=== PATIENT | female | born 1955 | race Caucasian/White ===

== ENCOUNTER 2019-04-20 07:52 | Outpatient (RCR) | payer MEDICARE, BC, SELFPAY ==
--- NOTE | 2019-02-23 10:41 | WPDWOUNDNOTE ---
Wound Care Note Date/Time: 02/23/19 10:41 Wound width: 0.3cm Wound length: 0.2cm Wound depth: 2.3cm Drainage: Moderate serousanguinous Surrounding tissue appearance: No redness/warmth/swelling Tunneling: tunneling 2.3 cm. no communication with the ankle or subtalar joint Percentage granulation tissue: 100% Treatment/Procedures: Dressing change Dressings: Silver gel, shelia, cover dry Assessment and Plan Assessment and plan (1) Nonunion of arthrodesis: Onset Date: ~06/2018 Status: Acute Assessment and Plan: [facility] wound clinic evaluation for right ankle. Valgus alignment unchanged. Wound dehiscence with continued drainage, no signs of infection. Marked improvement in dimensions/depth, see exam. No probing to bone. Awaiting transition to [place] boot at this time but given drainage, will continue use of fracture boot and daily dressing changes. Silver gel, shelia, cover dry. Fracture boot. PWB. Follow up in 2 weeks for reassessment. Patient started on Karl today. (2) Ulcer of ankle: Qualifiers: Laterality: right Non-pressure ulcer stage: with necrosis of muscle Qualified Code(s): 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 Code(s): L97.309 - Non-pressure chronic ulcer of unspecified ankle with unspecified severity Status: Acute Review of Systems Const Reports no additional constitutional complaints Eyes Reports no additional eye complaints ENT Reports system reviewed and no additional complaints, except as documented Card Reports no additional cardiovascular complaints Resp Reports no additional respiratory complaints GI Reports no additional gastrointestinal complaints Reports no additional female genitourinary complaints Musc Reports no additional musculoskeletal complaints Skin/Breast Reports system reviewed and no additional complaints, except as docu Neuro Reports system reviewed and no additional complaints, except as documented Psych Reports no additional psychiatric complaints Endo Reports no additional endocrine complaints Jae/Lymph Reports no additional hematologic/lymphatic complaints Aller/Immun Reports no additional allergic/immunologic complaints Exam Const Constitutional General: healthy appearing; No in distress or confused Orientation/consciousness: oriented to person, oriented to place, oriented to time and No confused HENMT Head: normal to inspection, normocephalic and atraumatic Eyes Conjunctivae: Yes conjunctivae normal Sclera: sclerae normal Neck Neck: Yes supple and No tender Resp Effort & Inspection: normal respiratory effort and no audible wheezes Cardio Rate: Yes regular rate Rhythm: regular rhythm Skin General skin exam: no rashes or lesions noted Neuro General: Yes oriented to person, Yes oriented to place, Yes oriented to time and No confusion Extrem Right upper extremity: normal to inspection Left upper extremity: normal to inspection Right lower extremity: ankle ( Right ankle incision closed for at the proximal and middle aspect. ) Other: Right lateral ankle incision wound dehiscence with continued improvement in dimensions/appearance. Proximal/middle incision remain completely closed. Opening at the distal incision on the dorsal midfoot measures 0.3x0.2x2.3cm, unable to probe to bone. 100% red/pink wound bed. Moderate serousanguinous drainage. No signs of active infection. Does not communicate with the ankle or subtalar joint. Moderate valgus alignment through the ankle joint with minimal correction/motion. Unable to correct. Surrounding tissue without redness, warmth, swelling. Psych Affect: Yes normal affect
--- NOTE | 2019-03-12 08:27 | PCWOUND ---
Patient called to cancel appointment due to sickness. Rescheduled for Friday03/16/19 at 0930. Informed Franca Burnett NP for Dr. Curtis of [facility].
--- NOTE | 2019-03-16 10:09 | WPDWOUNDNOTE ---
Wound Care Note Date/Time: 03/16/19 10:09 Wound width: 0.1 Wound length: 0.2cm Wound depth: 2.5cm Drainage: Mild serousanguinous Surrounding tissue appearance: No redness/warmth/swelling Tunneling: tunneling 2.5 cm. no communication with the ankle or subtalar joint Percentage granulation tissue: 100% Treatment/Procedures: Dressing change Dressings: Silver gel, shelia, cover dry Assessment and Plan Assessment and plan (1) Nonunion of arthrodesis: Onset Date: ~06/2018 Status: Acute Assessment and Plan: [facility] wound clinic evaluation for right ankle. Valgus alignment unchanged. Wound dehiscence with continued drainage- slowed, no signs of infection. Marked improvement in dimensions/depth, see exam. No probing to bone. Plan for transition to [place] boot at this time. Follow up at [facility] in 1 week for repeat radiographs of the RLE with Dr. Curtis. Silver gel, shelia, cover dry to distal wound. PWB with [place] boot. MUST use walker. Discussed importance of RLE foot/ankle/calf checks x2/day to evaluate for any skin breakdown in the [place] boot. Report immediately to our office. (2) Ulcer of ankle: Qualifiers: Laterality: right Non-pressure ulcer stage: with necrosis of muscle Qualified Code(s): 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 Code(s): L97.309 - Non-pressure chronic ulcer of unspecified ankle with unspecified severity Status: Acute Review of Systems Const Reports no additional constitutional complaints Eyes Reports no additional eye complaints ENT Reports system reviewed and no additional complaints, except as documented Card Reports no additional cardiovascular complaints Resp Reports no additional respiratory complaints GI Reports no additional gastrointestinal complaints Reports no additional female genitourinary complaints Musc Reports no additional musculoskeletal complaints Skin/Breast Reports system reviewed and no additional complaints, except as docu Neuro Reports system reviewed and no additional complaints, except as documented Psych Reports no additional psychiatric complaints Endo Reports no additional endocrine complaints Jae/Lymph Reports no additional hematologic/lymphatic complaints Aller/Immun Reports no additional allergic/immunologic complaints Exam Const Constitutional General: healthy appearing; No in distress or confused Orientation/consciousness: oriented to person, oriented to place, oriented to time and No confused HENMT Head: normal to inspection, normocephalic and atraumatic Eyes Conjunctivae: Yes conjunctivae normal Sclera: sclerae normal Neck Neck: Yes supple and No tender Resp Effort & Inspection: normal respiratory effort and no audible wheezes Cardio Rate: Yes regular rate Rhythm: regular rhythm Skin General skin exam: no rashes or lesions noted Neuro General: Yes oriented to person, Yes oriented to place, Yes oriented to time and No confusion Extrem Right upper extremity: normal to inspection Left upper extremity: normal to inspection Right lower extremity: ankle ( Right ankle incision closed for at the proximal and middle aspect. ) Other: Right lateral ankle incision wound dehiscence with continued improvement in dimensions/appearance. Proximal/middle incision remain completely closed. Opening at the distal incision on the dorsal midfoot measures 0.2x0.2x2.5cm, unable to probe to bone. 100% red/pink wound bed. Mild serousanguinous drainage, drainage slowing. No signs of active infection. Does not communicate with the ankle or subtalar joint. Moderate valgus alignment through the ankle joint with minimal correction/motion. Unable to correct. Surrounding tissue without redness, warmth, swelling. Psych Affect: Yes normal affect
--- NOTE | 2019-04-20 10:11 | WPDWOUNDNOTE ---
Wound Care Note Date/Time: 04/20/19 10:11 Wound width: 0.1 Wound length: 0.2cm Wound depth: 2.7cm Drainage: Mild serousanguinous Surrounding tissue appearance: No redness/warmth/swelling Tunneling: tunneling 2.5 cm. no communication with the ankle or subtalar joint Percentage granulation tissue: 100% Treatment/Procedures: Dressing change Dressings: Silver gel, shelia, cover dry Assessment and Plan Assessment and plan (1) Nonunion of arthrodesis: Onset Date: ~06/2018 Status: Acute Assessment and Plan: Patient returns to wound clinic for re-evaluation of right ankle and foot. Some skin excoriation of the leg and noted with breakdown and mild slough. 5 to 6 areas from Dime to quarter sized. Recommend antibiotic ointment and time-out from the Charcot restraint orthosis. Patient verbalizes understanding. 30 minutes discussion regarding treatment options.Updated history, physical exam and radiographs reviewed with the patient. Interval changes reviewed. Discussed the condition, nature, etiology and course of natural history with the patient. Treatment options including surgical and nonoperative treatment were reviewed. Risks and benefits of each as well as alternatives reviewed. The patient's questions were answered. Conservative treatment ice, compression and elevation. She is failing non operative treatment due to further deformity of the ankle and hindfoot. We have discussed surgical treatment which includes amputation, external fixator reconstruction versus internal fixation reconstruction. She has already failed 2 attempts at internal fixation. She has loss of bone and length of the leg and does not tolerate allograft placement to try and restore length. If she decided on reconstruction it would need to be at a shortened position. We talked about the advantage of external fixator with not having internal metal components and stabilizing weak and osteoporotic bone. Advantage of internal fixation is a single surgery without pins screws and wound and pin site care that is required with external fixator. Patient and family questions answered. They are going to consider. In the interim she can use her fracture boot for immobilization with protected weight-bearing. Daily dressing changes were reviewed with antibiotic ointment. She is going to follow up with the orthotic company for adjustment of her Charcot restraint. She has also asked about a 2nd opinion which will try to help arrange for her. Follow-up in the orthopedic office in 3 to 4 weeks for new radiographs of the right ankle. (2) Ulcer of ankle: Qualifiers: Laterality: right Non-pressure ulcer stage: with necrosis of muscle Qualified Code(s): 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 Code(s): L97.309 - Non-pressure chronic ulcer of unspecified ankle with unspecified severity Status: Acute Review of Systems Const Denies fever(s) Eyes Denies blurry vision ENT Denies neck pain Card Denies chest pain Resp Denies wheezing GI Denies abdominal pain Denies urinary urgency Musc Reports as per HPI Skin Reports as per HPI Neuro Denies behavioral changes or numbness Psych Denies irritability or mood changes Endo Denies polyuria Jae/Lymph Denies easy bleeding Aller/Immun Denies seasonal allergies Exam Const Constitutional General: healthy appearing; No in distress or confusion Orientation/consciousness: oriented to person, oriented to place, oriented to time and No confusion HENMT Head: normal to inspection, normocephalic and atraumatic Eyes Conjunctivae: Yes conjunctivae normal Sclera: sclerae normal Neck Neck: Yes supple and No tender Resp Effort & Inspection: normal respiratory effort and no audible wheezes Cardio Rate: Yes regular rate Rhythm: regular rhythm Skin General skin exam: no rashes or lesions noted Neuro General: Yes oriented to person, Yes oriented to place, Yes
== END 2019-05-10 23:59 | disposition home or self-care (01) ==
LOC: ANHWOC 07:52
PROVIDERS: Referring Provider Nurse Practitioner Family; Visit Provider Orthopaedic Surgery
DX: Z48.01 Encounter for change or removal of surgical wound dressing (principal); L97.313 Non-pressure chronic ulcer of right ankle with necrosis of muscle; E11.9 Type 2 diabetes mellitus without complications
CPT/HCPCS: 92593; 99212; 99213; A9270; G0463

== ENCOUNTER 2020-09-19 11:44 | Outpatient (CLI) | payer MEDICARE, BC, SELFPAY ==
--- NOTE | 2020-09-19 13:07 | ECG_ITS ---
Measurements Intervals [place] Rate: 64 P: 71 ME: 168 QRS: 6 QRSD: 117 T: 17 QT: 411 QTc: 425 Interpretive Statements SINUS RHYTHM INTRAVENTRICULAR CONDUCTION DELAY BORDERLINE ECG Electronically Signed On 09-19-2020 13:38:52 CDT by Kosta Villatoro D.O.
[2020-09-19 13:33] LABS: Hematocrit 35.8 % (37.0-47.0); Hemoglobin 10.8 g/dL (12.0-15.0)
[2020-09-19 13:40] LABS: Hemoglobin A1C 4.8 % (<5.7)
[2020-09-19 13:42] LABS: Anion Gap 7 mmol/L (8-16); Blood Urea Nitrogen 48 mg/dL (7-17); Calcium 8.5 mg/dL (8.4-10.2); Carbon Dioxide 24 mmol/L (22-30); Chloride 112 mmol/L (98-107); Estimated Glomerular Filt Rate 14; Glucose 70 mg/dL (65-105); Potassium 4.9 mmol/L (3.4-5.0); Sodium 143 mmol/L (137-145)
== END 2020-09-19 11:45 | disposition home or self-care (01) ==
PROVIDERS: Anesthesiology; PCP Family Medicine; Visit Provider Orthopaedic Surgery
DX: M86.8X7 Other osteomyelitis, ankle and foot (principal); E11.9 Type 2 diabetes mellitus without complications; I10 Essential (primary) hypertension; I45.89 Other specified conduction disorders
CPT/HCPCS: 36415; 80048; 83036; 85014; 85018; 93005

== ENCOUNTER → 2020-09-25 00:40 | Outpatient (CLI) | payer MEDICARE, BC, SELFPAY ==
[2020-09-27 07:17] LABS: SARS-CoV-2 RNA PCR Negative
== END ==
PROVIDERS: PCP Family Medicine; Visit Provider Orthopaedic Surgery
DX: Z01.812 Encounter for preprocedural laboratory examination (principal); Z20.822 Contact with and (suspected) exposure to COVID-19
CPT/HCPCS: C9803; U0003; U0005

== ENCOUNTER 2020-09-28 13:08 | Inpatient (IN) | payer MEDICARE, BC, SELFPAY ==
[2020-09-19 12:15] VITALS: BP 204/94; PULSE 60; RESP 16; TEMP 37; O2SAT 98; BMI 45.3
--- NOTE | 2020-09-26 16:04 | PM.IMHP ---
H&P: HPI History of Present Illness Date/Time: 09/26/20 16:04 Chief Complaint: Right ankle ulcer, deformity, psoriatic arthritis Narrative: 64-year-old woman with previous right ankle deformity status post reconstruction. Complicated by postoperative wound dehiscence and infection. Long treatment for wound problems and infection. Now with severe deformity of right ankle severe lateral soft tissue scarring and inability to bear weight. Presents for operative treatment. Review of Systems Constitutional: Constitutional: Denies fever(s) Eyes: Eyes: Denies blurry vision ENT: Reports Normal hearing present Cardiovascular: Cardiovascular: Denies chest pain and Denies dyspnea Respiratory: Respiratory: Denies dyspnea and Denies wheezing Gastrointestinal: Gastrointestinal: Denies abdominal pain Genitourinary: Genitourinary: Denies urinary urgency Musculoskeletal: Musculoskeletal: Reports as per HPI and Denies numbness Integumentary/Breasts: Skin/Breast: Reports changing lesions, Reports dry skin, Reports sores and Reports other ( Skin changes with psoriatic arthritis) Neurologic: Reports Normal hearing present, Denies behavioral changes, Denies confusion, Denies numbness and Denies convulsions Psychiatric: Psychiatric: Denies behavioral changes, Denies confusion and Denies hallucinations Endocrine: Endocrine: Denies heat intolerance Hematologic/Lymphatic: Hematologic/Lymphatic: Denies easy bleeding Allergic/Immunologic: Allergic/Immunologic: Denies wheezing PMFSH Past Medical History Medical History Psoriatic arthritis, destructive type Surgical History Surgical History History of hip replacement History of knee replacement Family History Family History Other Diabetes mellitus Family history of alcoholism Hypertension Social History Social History Smoking status: Never smoker Alcohol intake: current Drinks per week: 3 Substance use: never Additional living arrangements comments: HUSB Spiritual care concerns: No Meds Home Medications and Allergies Home Medications Medication Instructions Recorded Confirmed Type aspirin 81 mg PO DAILY 02/01/19 09/19/20 History atorvastatin [Lipitor] 40 mg PO HS 02/01/19 09/19/20 History glipizide 2.5 mg PO BID 02/01/19 09/19/20 History hydralazine 100 mg PO TID 02/01/19 09/19/20 History verapamil 240 mg PO QAM 02/01/19 09/19/20 History clonidine HCl 0.1 mg tablet 0.1 mg PO BID 08/28/20 09/19/20 History doxazosin 2 mg tablet 2 mg PO HS 08/28/20 09/19/20 History levothyroxine 25 mcg capsule 25 mcg PO QAM 08/28/20 09/19/20 History cetirizine [Zyrtec] 10 mg PO DAILY 09/19/20 09/19/20 History ergocalciferol (vitamin D2) 1,250 mcg PO WEEKLY 09/19/20 09/19/20 History ferrous sulfate [Iron (ferrous 325 mg PO DAILY 09/19/20 09/19/20 History sulfate)] metoprolol tartrate 100 mg PO BID 09/19/20 09/19/20 History Allergies Allergy/AdvReac Type Severity Reaction Status Date / Time sulfamethoxazole Allergy Intermediate HIGH Verified 09/19/20 12:03 POTASSIUM trimethoprim Allergy Intermediate HIGH Verified 09/19/20 12:03 POTASSIUM carvedilol AdvReac Unknown Dizziness Verified 09/19/20 12:03 oxycodone AdvReac Unknown Dizziness Verified 09/19/20 12:03 Exam Const: General: cooperative, healthy appearing, no acute distress, well developed and alert; No confusion Orientation/consciousness: No confusion HENMT: Head: normal to inspection, normocephalic and atraumatic Eyes: Conjunctivae: conjunctivae normal Sclera: sclerae normal Neck: Neck: supple and nontender Chest: Chest palpation & inspection: normal inspection of the chest Resp: Effort & Inspection: normal respiratory effort and no audible wheezes Cardio: Rate: re
[2020-09-28] VITALS (22 sets, daily range): BP systolic 106–173; BP diastolic 62–93; PULSE 53–77; RESP 12–22; TEMP 35.9–36.6; O2SAT 91–100
--- NOTE | 2020-09-28 06:55 | WPDHPUPDATE1 ---
History and Physical Update Update Date/Time: 09/28/20 06:55 History and Physical has been reviewed, including an updated exam of the patient. There are NO changes in the patient's condition. Covid test negative. Risks, benefits, and alternatives have been discussed and questions answered. Patient agrees to proceed with procedure.
--- NOTE | 2020-09-28 06:56 | WPDANESEPPF ---
Anes - Initial Pre Proc Eval Procedure: Operation Date: 09/28/20 08:00 Proposed Procedures p Right Transtibial Amputation - Avinash Curtis MD Date/Time: 09/28/20 06:56 Surgeon: Avinash Curtis MD Pre Op Diagnosis: Right foot osteomyelitis Patient Data Age: 64 Gender: F Height: 1.6 m Weight: 116 kg Last Vital Signs Temp 37.0 C 09/19/20 12:15 Pulse 60 09/19/20 12:15 Resp 16 09/19/20 12:15 BP 204/94 H 09/19/20 12:15 Pulse Ox 98 09/19/20 12:15 Allergies Allergy/AdvReac Type Severity Reaction Status Date / Time sulfamethoxazole Allergy Intermediate HIGH Verified 09/28/20 06:46 POTASSIUM trimethoprim Allergy Intermediate HIGH Verified 09/28/20 06:46 POTASSIUM carvedilol AdvReac Unknown Dizziness Verified 09/28/20 06:46 oxycodone AdvReac Unknown Dizziness Verified 09/28/20 06:46 Home Medications Medication Instructions Recorded Confirmed Type aspirin 81 mg PO DAILY 02/01/19 09/28/20 History atorvastatin [Lipitor] 40 mg PO HS 02/01/19 09/28/20 History glipizide 2.5 mg PO BID 02/01/19 09/28/20 History hydralazine 100 mg PO TID 02/01/19 09/28/20 History verapamil 240 mg PO QAM 02/01/19 09/28/20 History clonidine HCl 0.1 mg tablet 0.1 mg PO BID 08/28/20 09/28/20 History doxazosin 2 mg tablet 2 mg PO HS 08/28/20 09/28/20 History levothyroxine 25 mcg capsule 25 mcg PO QAM 08/28/20 09/28/20 History cetirizine [Zyrtec] 10 mg PO DAILY 09/19/20 09/28/20 History ergocalciferol (vitamin D2) 1,250 mcg PO WEEKLY 09/19/20 09/28/20 History ferrous sulfate [Iron (ferrous 325 mg PO DAILY 09/19/20 09/28/20 History sulfate)] metoprolol tartrate 100 mg PO BID 09/19/20 09/28/20 History Patient hx anesthesia problems: none Family hx anesthesia problems: none [facility] Past Medical History Medical History (Updated 09/28/20 @ 06:58 by Scottie Estes MD) Diabetes HTN (hypertension) Hypercholesterolemia Hypothyroidism Morbid obesity with BMI of 40.0-44.9, adult 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) Obesity Oligoarticular psoriatic arthritis Osteoarthritis Psoriatic arthritis, destructive type Ulcer of ankle Surgical History Surgical History History of hip replacement History of knee replacement Family History Family History Other Diabetes mellitus Family history of alcoholism Hypertension Social History Social History Smoking status: Never smoker Alcohol intake: current Drinks per week: 3 Alcohol use details: BEER Substance use: never Living arrangements: with family Additional living arrangements comments: HUSB Spiritual care concerns: No Anes - Eval Final PreProcedure Day of Procedure 09/28/20 06:56 Patient weight: obese Heart: regular rate and rhythm Lungs: clear to auscultation and normal air movement Airway: Mallampati scale class II Neurological: alert and oriented Last oral intake: >/= 8 hours ASA classification: III Emergent: no Anesthetic plan: proceed Anesthesia type and monitoring: general LMA Informed Consent: The patient's anesthetic plan and its attendant risks and benefits were discussed with the patient/family/POA. Questions were solicited and answers provided to the satisfaction of the patient/family/POA.
[2020-09-28] MEDS: LACTATED RINGERS 1,000 ML 30 ML IV CONT ×2 (07:25→10:01)
[2020-09-28 07:27] LABS: Glucose Point of Care 86 mg/dl (65-105)
[2020-09-28] MEDS: ACETAMINOPHEN 500 MG TABLET 1000 MG PO (07:27)
[2020-09-28] MEDS: KETOROLAC 15 MG/ML VIAL (*BKC) IV PUSH (07:28)
[2020-09-28] MEDS: ceFAZolin 3 GM/D5W 100 ML 100 ML IVPB (07:47)
[2020-09-28] MEDS: BUPIVACAINE/EPINEPHRINE 0.5% 10 ML VIAL 50 ML INFILTRATE (08:52)
[2020-09-28 10:10] LABS: Glucose Point of Care 93 mg/dl (65-105)
--- NOTE | 2020-09-28 10:10 | P.OP_ITS ---
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 Informed consent given. Operative extremity marked. Patient received intravenous antibiotics. Patient brought to the operating room where underwent general a nesthetic by anesthesia team. Positioned supine on operating room table. Time- out performed confirming the patient, site of the surgery and the plan. Leg then prepped and draped usual sterile surgical fashion using Betadine prep solution. Calf and leg exsanguinated and a thigh tourniquet inflated to 250 mmHg. Anatomic landmarks mapped out on the skin to allow for a posterior flap and approximately 12 cm of tibia below the tibial tubercle. Skin incision made with a 10 blade knife. Hemostasis controlled electrocautery. Cautery dissection carried down circumferentially through the fascia. Dissection then carried around the proximal fibula, retractors placed in sagittal saw used to transect the fibula. Elevator used to dissect soft tissue off of the tibia. Tibia once again measured and the tibia osteotomy performed with a sagittal saw with retractors posterior to protect the soft tissue. Saphenous vessels and peroneal vessels were identified and ligated with 2 0 silk suture. The peroneal nerve and saphenous nerve identified and anesthetized with 0.5% Marcaine with epinephrine and ligated. Tibia was then brought forward and an amputation knife was placed posterior to the tibia and the distal fibula and the soft tissue was transected away from the bone. The cut was completed through the Achilles tendon. The distal leg ankle and foot were then passed off as specimen. Tibial artery identified and ligated with 2 0 silk suture. Tibial nerve identified and anesthetized with 0.5% Marcaine with epinephrine and ligated. Any other bleeding points coagulated with cautery. The tourniquet was then released. Any further bleeding was controlled with cautery or 2 0 silk suture ligation. After thorough hemostasis the wound was thoroughly irrigated with antibiotic solution. The anterior cortex of the tibia was shaped with the saw to reduce pressure. Thorough irrigation again performed. Myodesis was then performed of the gastrocnemius over the distal tibia using #2 Ethibond suture placed through trans osseous holes in the distal tibia. Fascia then repaired with 0 Vicryl interrupted suture. Subcutaneous tissue repaired with 2 Vicryl 3 0 Monocryl interrupted suture and skin repaired with emy. Wound VAC dressing applied to the incision and covered with sterile dressing. Patient awoken from anesthesia, extubated and taken to recovery room in stable condition. All sponge needle and instrument counts correct at the end of the case. Implants None Estimated Blood Loss -100.0 Tourniquet Time 45 Urine Output -150.0 Drains No Packing Yes (Wound VAC) Pathology yes (Right foot and ankle specimen) Complications None Condition stable Disposition PACU
--- NOTE | 2020-09-28 13:42 | ADMGEN ---
This patient, Rimma Lopes, was admitted to Medical Room 342-01. Patient/family oriented to hospital policies and general routines including ID bracelet, bed and alarms, visiting hours, pain management, procedures, bathroom and other care routines, personal items, smoking policy, room service/diet, and visiting hours. Information on how to activate the Rapid Response Team has been discussed. Patient/Family are encouraged to report perceived risks to care and to ask questions if they do not understand what they are told or what they should do.
[2020-09-28] MEDS: KCL 20 MEQ/D5/0.45% SOD CHL 1,000 ML 80 ML IV CONT (14:07)
[2020-09-28] MEDS: hydrALAZINE HCL 50 MG TABLET 100 MG PO ×2 (15:14→16:56)
[2020-09-28] MEDS: DOCUSATE SODIUM 100 MG CAPSULE PO (16:55)
[2020-09-28] MEDS: glipiZIDE XL 2.5 MG TAB.ER.24 PO (16:56)
[2020-09-28] MEDS: cloNIDine HCL 0.1 MG TABLET PO (16:58)
[2020-09-28] MEDS: oxyCODONE HCL (*CRX) 5 MG TAB IR PO ×2 (17:11→20:37)
[2020-09-28] MEDS: DOXAZOSIN MESYLATE 2 MG TABLET PO (20:37)
[2020-09-28] MEDS: FAMOTIDINE 20 MG TABLET PO (20:37)
[2020-09-28] MEDS: ATORVASTATIN 40 MG TABLET PO (20:37)
[2020-09-28] MEDS: TOLNAFTATE 1% POWDER 45 GM BTL 1 APPLIC TOPICAL (20:37)
[2020-09-28] MEDS: METOPROLOL TARTRATE 50 MG TAB 100 MG PO (20:37)
--- NOTE | 2020-09-28 22:00 | WPDCN ---
Assessment and Plan Assessment and plan (1) Osteomyelitis of right foot: Code(s): M86.9 - Osteomyelitis, unspecified Status: Acute Assessment and Plan: Postoperative day 0, status post right transtibial amputation. Wound care, pain control, and antibiotic choice deferred to Dr. Curtis as well as DVT prophylaxis. (2) Type 2 diabetes mellitus: Code(s): E11.9 - Type 2 diabetes mellitus without complications Status: Acute Assessment and Plan: Continue glipizide. Initiate sliding scale insulin, Accu-Cheks, and hypoglycemic protocol. Recent hemoglobin A1c was 4.8%. (3) Hypertension: Code(s): I10 - Essential (primary) hypertension Status: Acute Assessment and Plan: Blood pressures were reviewed and they have been a bit elevated postoperatively. Continue antihypertensives and monitor daily. (4) Hypothyroidism: Code(s): E03.9 - Hypothyroidism, unspecified Status: Acute Assessment and Plan: Continue levothyroxine and check TSH. (5) Hypercholesterolemia: Code(s): E78.00 - Pure hypercholesterolemia, unspecified Status: Acute Assessment and Plan: Continue statin. Check LFTs in a.m. Additional Plan Thank you for allowing us to participate in this patient's care. Please do not hesitate to contact us with any questions. Supervising physician for this medical consultation is Dr. Raymond Munroe. HPI Data of Consult Date/Time: 09/28/20 22:00 Requesting Physician: Avinash Curtis MD Primary Care Provider: Joel TolentinoMD Consult Narrative Narrative: This is a very pleasant 64-year-old female with type 2 diabetes mellitus, hypertension, hyperlipidemia, hypothyroidism, and chronic kidney disease whom the hospitalist service has been consulted for management of her medical conditions postoperatively. She has had a protracted course after right ankle reconstruction several years ago, complicated by postoperative wound dehiscence and infection, and presents today for definitive operative treatment and amputation as she has been unable to bear weight for some time. Her surgery was performed under general anesthesia with no immediate complications documented an estimated blood loss of 100 mL. at the time my evaluation she is having phantom limb pain, rated 4/10. She has some mild throat irritation, presumably due to intubation, but she has no other complaints. Specifically she denies fever, chills, sweats, chest pain, nausea, and vomiting. Review of Systems Review of Systems: Narrative: Twelve systems were reviewed with pertinent positives and negatives as per HPI. No fever, chills, or sweats. No recent cold or flu symptoms. She denies chest pain shortness of breath. No cough. no nausea, vomiting, or diarrhea. No dysuria. Her diabetes is well controlled with a reported recent hemoglobin A1c of 4.5%. Fasting glucose is typically between 80 and 125. No blurry vision, polydipsia, polyuria. She believes her blood pressure and cholesterol are also well controlled on home medications. No history of venous thromboembolism. Except as documented, all other systems were reviewed and are negative. [facility] Past Medical History Medical History (Updated 09/28/20 @ 22:45 by Christiana Braden PA-C) Hypercholesterolemia Hypertension Hypothyroidism Morbid obesity with BMI of 40.0-44.9, adult Osteoarthritis Psoriatic arthritis, destructive type Single seizure Type 2 diabetes mellitus Surgical History Surgical History (Updated 09/28/20 @ 22:42 by Christiana Braden PA-C) History of orthopedic surgery Right ankle reconstruction. Left foot reconstruction. Right mandibular surgery. Left total hip arthroplasty. Right transtibial amputation. Left knee arthroplasty. Family History Family History Other Diabetes
[2020-09-29 00:18] LABS: Glucose Point of Care 149 mg/dl (65-105)
[2020-09-29] MEDS: oxyCODONE HCL (*CRX) 5 MG TAB IR PO ×4 (03:02→20:52)
[2020-09-29 04:33] VITALS: BP 149/71; PULSE 61; RESP 17; TEMP 36.6; O2SAT 96
[2020-09-29] MEDS: LEVOTHYROXINE SODIUM 25 MCG TABLET PO (05:46)
--- NOTE | 2020-09-29 06:11 | PM.PNORT ---
Progress Note: A&P Assessment and Plan (1) Osteomyelitis of right foot: Qualifiers: Osteomyelitis type: chronic, with draining sinus Qualified Code(s): M86.471 - Chronic osteomyelitis with draining sinus, right ankle and foot Code(s): M86.9 - Osteomyelitis, unspecified Status: Acute Assessment and Plan: Postoperative day 1. Pain control with IV medication for breakthrough. Physical therapy / occupational therapy for transfers and ambulation, nonweightbearing right leg. Labs pending for today. Continue to monitor chronic renal failure. Appreciate hospitalists medical coverage. Wound VAC Subjective Subjective Date/Time Seen: 09/29/20 06:11 Post Op day: 1 Principal diagnosis: Right below-knee amputation Interval history: postop day 1. Patient with pain initially after surgery. Now controlled. Eating and tolerating regular diet. No problems with breathing. Review of Systems Constitutional: Constitutional: Denies fever(s) Eyes: Eyes: Denies blurry vision ENT: Reports Normal hearing present Cardiovascular: Cardiovascular: Denies chest pain and Denies dyspnea Respiratory: Respiratory: Denies dyspnea and Denies wheezing Gastrointestinal: Gastrointestinal: Denies abdominal pain Genitourinary: Genitourinary: Denies urinary urgency Musculoskeletal: Musculoskeletal: Reports as per HPI and Denies numbness Integumentary/Breasts: Skin/Breast: Reports changing lesions, Reports dry skin, Reports sores and Reports other ( Skin changes with psoriatic arthritis) Neurologic: Reports Normal hearing present, Denies behavioral changes, Denies confusion, Denies numbness and Denies convulsions Psychiatric: Psychiatric: Denies behavioral changes, Denies confusion and Denies hallucinations Endocrine: Endocrine: Denies heat intolerance Hematologic/Lymphatic: Hematologic/Lymphatic: Denies easy bleeding Allergic/Immunologic: Allergic/Immunologic: Denies wheezing Exam Const: General: cooperative, healthy appearing, no acute distress, well developed and alert; No confusion Orientation/consciousness: No confusion HENMT: Head: normal to inspection, normocephalic and atraumatic Eyes: Conjunctivae: conjunctivae normal Sclera: sclerae normal Neck: Neck: supple and nontender Chest: Chest palpation & inspection: normal inspection of the chest Resp: Effort & Inspection: normal respiratory effort and no audible wheezes Cardio: Rate: regular rate Rhythm: regular rhythm : General: Yes deferred Skin: General skin exam: no rashes or lesions noted Neuro: General: No confusion Extrem: General: capillary refill normal Right upper extremity: normal to inspection, full ROM and normal capillary refill Left upper extremity: normal to inspection, full ROM and normal capillary refill Right lower extremity: hip/thigh Details: normal to inspection, knee Details: normal to inspection; no tenderness and lower leg ( Below-knee amputation.) Details: other ( Dressing in place. Clean dry and intact. No drainage. Wound VAC in place.) Left lower extremity: hip/thigh Details: normal to inspection, knee Details: abnormal ROM ( range of motion deferred secondary to fracture), ankle (no calf tenderness) Details: normal to inspection, normal ROM ( ankle dorsiflexion 5?, plantar flexion 45, inversion 20, eversion 10) and other ( good capillary refill in toes, 2+ DP pulse, light touch sensation intact); no tenderness ( lateral malleolus, anterior ankle and medial ankle) and no swelling ( moderate anterior ankle, moderate lateral ankle) and foot Details: normal capillary refill, toes with normal ROM, vascular exam Details: dorsalis pedis pulse present and normal capillary refill, tendon exam active flexion normal and active extension normal and motor-sensory exam two point discrimination normal and light-touch normal; no tenderness Psych: Affect: normal affect Objective Data Vital Signs Vital Signs: Vital Signs - 24
[2020-09-29 06:51] LABS: Basophils Percent Auto 0.5 % (0.2-1.2); Eosinophils Percent Auto 0.2 % (0-4.4); Hematocrit 30.3 % (37.0-47.0); Immature Granulocyte Absolute 0.04 K/mm3 (0.00-0.031); Immature Granulocyte Percent A 0.5 % (0-0.5); Lymphocytes Absolute Auto 0.59 K/mm3 (0.9-3.2); Lymphocytes Percent Auto 7.1 % (18.3-44.2); Mean Corpuscular HGB Conc 29.7 g/dl (32-36); Mean Corpuscular Hemoglobin 28.8 pg (26-34); Mean Corpuscular Volume 97.1 fl (80-100); Mean Platelet Volume 10.8 fl (7.4-10.4); Monocytes Absolute Auto 0.8 K/mm3 (0.1-0.6); Neutrophils Absolute Auto 6.9 K/mm3 (1.3-6.7); Neutrophils Percent Auto 82.7 % (45.5-73.1); Platelet Count Result 195 k/mm3 (150-375); Red Blood Count 3.12 M/mm3 (4.2-5.4); White Blood Count 8.3 K/mm3 (4.5-10.0)
[2020-09-29 07:03] LABS: Alanine Aminotransferase 8 U/L (4-35); Albumin Level 2.5 g/dL (3.5-5.1); Alkaline Phosphatase 58 U/L (38-126); Anion Gap 5 mmol/L (8-16); Aspartate Amino Transferase 20 U/L (14-36); Bilirubin,Total < 0.1 mg/dL (0.2-1.3); Blood Urea Nitrogen 45 mg/dL (7-17); Calcium 7.7 mg/dL (8.4-10.2); Carbon Dioxide 21 mmol/L (22-30); Chloride 110 mmol/L (98-107); Estimated CRCL calculation 21 ml/min; Estimated Glomerular Filt Rate 15; Glucose 79 mg/dL (65-105); Potassium 4.8 mmol/L (3.4-5.0); Sodium 136 mmol/L (137-145)
[2020-09-29 09:03] VITALS: PULSE 65
[2020-09-29] MEDS: DOCUSATE SODIUM 100 MG CAPSULE PO ×2 (09:03→16:38)
[2020-09-29] MEDS: glipiZIDE XL 2.5 MG TAB.ER.24 PO ×2 (09:03→16:38)
[2020-09-29] MEDS: METOPROLOL TARTRATE 50 MG TAB 100 MG PO ×2 (09:03→20:52)
[2020-09-29] MEDS: FERROUS SULFATE 324 MG TABLET PO (09:04)
[2020-09-29] MEDS: FAMOTIDINE 20 MG TABLET PO ×2 (09:04→20:52)
[2020-09-29] MEDS: hydrALAZINE HCL 50 MG TABLET 100 MG PO ×3 (09:04→16:38)
[2020-09-29] MEDS: LORATADINE 10 MG TABLET PO (09:04)
[2020-09-29] MEDS: TOLNAFTATE 1% POWDER 45 GM BTL 1 APPLIC TOPICAL ×2 (09:04→20:53)
[2020-09-29 09:08] LABS: Glucose Point of Care 106 mg/dl (65-105)
--- NOTE | 2020-09-29 09:21 | P.PNIM_ITS ---
Progress Note: A&P Assessment and Plan (1) Osteomyelitis of right foot: Qualifiers: Osteomyelitis type: chronic, with draining sinus Qualified Code(s): M86.471 - Chronic osteomyelitis with draining sinus, right ankle and foot Code(s): M86.9 - Osteomyelitis, unspecified Status: Acute Assessment and Plan: * Postoperative day 1 * Status post right transtibial amputation. * Care managed by Dr. Curtis * Wound care per wound nurse (Wound vac) * pain control per ortho Tylenol 650mg PO Q6hr, Roxicodone 5mg PO Q4hr, Morphine 2mg IV Q3hr PRN * antibiotic was Cefazolin 1gm Q8hr x 3bags * DVT prophylaxis per surgeon * PT/OT (2) Type 2 diabetes mellitus: Qualifiers: Chronic kidney disease stage: stage 4 (severe) Diabetes mellitus complication detail: with chronic kidney disease Diabetes mellitus complication status: with kidney complications Diabetes mellitus shelter insulin use: without terminal makeup operator use Qualified Code(s): E11.22 - Type 2 diabetes mellitus with diabetic chronic kidney disease; N18.4 - Chronic kidney disease, stage 4 (severe) Code(s): E11.9 - Type 2 diabetes mellitus without complications Status: Acute Assessment and Plan: * Hold glipizide 2.5mg PO BID. * Initiate sliding scale insulin * Accu-Cheks * hypoglycemic protocol. * hemoglobin A1c was 4.8%. (09/19/20) * Adjust medications as needed (3) Hypertension: Qualifiers: Hypertension type: essential hypertension Qualified Code(s): I10 - Essential (primary) hypertension Code(s): I10 - Essential (primary) hypertension Status: Acute Assessment and Plan: * Blood pressures were reviewed current blood pressure 149/71 * Continue Hydralizine 100mg PO TID, Metoprolol 100mg pO Q12hr, Clonidine 0.1mg PO Q12hr, Verapamil 240mg PO daily, Cardura 2mg PO Daily * Trend Blood pressure * Adjust medications as needed (4) Hypothyroidism: Qualifiers: Hypothyroidism type: acquired Qualified Code(s): E03.9 - Hypothyroidism, unspecified Code(s): E03.9 - Hypothyroidism, unspecified Status: Acute Assessment and Plan: * Continue levothyroxine 25 mcg PO Daily * TSH 2.910 normal (5) Hypercholesterolemia: Code(s): E78.00 - Pure hypercholesterolemia, unspecified Status: Acute Assessment and Plan: * Continue Atorvastatin 40mg PO at bedtime * Check LFTs in a.m. (6) Chronic kidney disease (CKD) stage G4/A1, severely decreased glomerular filtration rate (GFR) between 15-29 mL/min/1.73 square meter and albuminuria creatinine ratio less than 30 mg/g: Code(s): N18.4 - Chronic kidney disease, stage 4 (severe) Status: Acute Assessment and Plan: * Baseline Creatinine is 1.2-2 * Creatinine is elevated at 3.2 today * IV lasix one time 40mg * Trend Creatinine * Labs in the AM * Blood pressure control Time Spent With Patient Time with patient: 25 - 35 minutes Subjective Date/time seen: 09/29/20 09:10 Interval history: This is a very pleasant 64-year-old female with type 2 diabetes mellitus, hypertension, hyperlipidemia, hypothyroidism, and chronic kidney disease whom the hospitalist service has been consulted for management of her medical conditions postoperatively. Today patient is POD 1 and she is up in the chair. She does have some pain in her leg that she rated a 5/10 that start ed since she has got up today. She also stated that she has a cough that started last night that is d
--- NOTE | 2020-09-29 09:21 | PM.IMPN ---
Progress Note: A&P Assessment and Plan (1) Osteomyelitis of right foot: Qualifiers: Osteomyelitis type: chronic, with draining sinus Qualified Code(s): M86.471 - Chronic osteomyelitis with draining sinus, right ankle and foot Code(s): M86.9 - Osteomyelitis, unspecified Status: Acute Assessment and Plan: Postoperative day 1 Status post right transtibial amputation. Care managed by Dr. Curtis Wound care per wound nurse (Wound vac) pain control per ortho Tylenol 650mg PO Q6hr, Roxicodone 5mg PO Q4hr, Morphine 2mg IV Q3hr PRN antibiotic was Cefazolin 1gm Q8hr x 3bags DVT prophylaxis per surgeon PT/OT (2) Type 2 diabetes mellitus: Qualifiers: Chronic kidney disease stage: stage 4 (severe) Diabetes mellitus complication detail: with chronic kidney disease Diabetes mellitus complication status: with kidney complications Diabetes mellitus paper cone maker insulin use: without group home use Qualified Code(s): E11.22 - Type 2 diabetes mellitus with diabetic chronic kidney disease; N18.4 - Chronic kidney disease, stage 4 (severe) Code(s): E11.9 - Type 2 diabetes mellitus without complications Status: Acute Assessment and Plan: Hold glipizide 2.5mg PO BID. Initiate sliding scale insulin Accu-Cheks hypoglycemic protocol. hemoglobin A1c was 4.8%. (09/19/20) Adjust medications as needed (3) Hypertension: Qualifiers: Hypertension type: essential hypertension Qualified Code(s): I10 - Essential (primary) hypertension Code(s): I10 - Essential (primary) hypertension Status: Acute Assessment and Plan: Blood pressures were reviewed current blood pressure 149/71 Continue Hydralizine 100mg PO TID, Metoprolol 100mg pO Q12hr, Clonidine 0.1mg PO Q12hr, Verapamil 240mg PO daily, Cardura 2mg PO Daily Trend Blood pressure Adjust medications as needed (4) Hypothyroidism: Qualifiers: Hypothyroidism type: acquired Qualified Code(s): E03.9 - Hypothyroidism, unspecified Code(s): E03.9 - Hypothyroidism, unspecified Status: Acute Assessment and Plan: Continue levothyroxine 25 mcg PO Daily TSH 2.910 normal (5) Hypercholesterolemia: Code(s): E78.00 - Pure hypercholesterolemia, unspecified Status: Acute Assessment and Plan: Continue Atorvastatin 40mg PO at bedtime Check LFTs in a.m. (6) Chronic kidney disease (CKD) stage G4/A1, severely decreased glomerular filtration rate (GFR) between 15-29 mL/min/1.73 square meter and albuminuria creatinine ratio less than 30 mg/g: Code(s): N18.4 - Chronic kidney disease, stage 4 (severe) Status: Acute Assessment and Plan: Baseline Creatinine is 1.2-2 Creatinine is elevated at 3.2 today IV lasix one time 40mg Trend Creatinine Labs in the AM Blood pressure control Time Spent With Patient Time with patient: 25 - 35 minutes Subjective Date/time seen: 09/29/20 09:10 Interval history: This is a very pleasant 64-year-old female with type 2 diabetes mellitus, hypertension, hyperlipidemia, hypothyroidism, and chronic kidney disease whom the hospitalist service has been consulted for management of her medical conditions postoperatively. Today patient is POD 1 and she is up in the chair. She does have some pain in her leg that she rated a 5/10 that started since she has got up today. She also stated that she has a cough that started last night that is dry. Isidro stated that she had to have her AKA because the metal that was in her ankle from a previous surgery was rejected and it had to be repaired. The wound nurse came in to assess her wound vac and said that the patient had been almost walking on her ankle for months now. Patient did say that she has been shaky trying to get up, and she also had some anxiety about moving as well. She stated it was from trying to follow instruction and getting up for
[2020-09-29 10:53] VITALS: BP 165/95; PULSE 66; RESP 18; TEMP 36.2; O2SAT 95
[2020-09-29] MEDS: cloNIDine HCL 0.1 MG TABLET PO ×2 (10:57→20:52)
[2020-09-29] MEDS: VERAPAMIL HCL ER 240 MG TABLET.ER PO (10:58)
[2020-09-29 11:18] LABS: NT Pro B Type Natriuretic Pept 24800 pg/mL (5-100)
[2020-09-29 12:18] LABS: Glucose Point of Care 94 mg/dl (65-105)
[2020-09-29] MEDS: ASPIRIN 81 MG ENTERIC TABLET PO (13:10)
[2020-09-29 14:49] VITALS: BP 129/50; PULSE 61; RESP 18; TEMP 36.2; O2SAT 97
--- NOTE | 2020-09-29 15:45 | WPDCN ---
Assessment and Plan Assessment and plan (1) Chronic kidney disease (CKD) stage G4/A1, severely decreased glomerular filtration rate (GFR) between 15-29 mL/min/1.73 square meter and albuminuria creatinine ratio less than 30 mg/g: Code(s): N18.4 - Chronic kidney disease, stage 4 (severe) Status: Acute (2) Osteomyelitis of right foot: Qualifiers: Osteomyelitis type: chronic, with draining sinus Qualified Code(s): M86.471 - Chronic osteomyelitis with draining sinus, right ankle and foot Code(s): M86.9 - Osteomyelitis, unspecified Status: Acute Assessment and Plan: IV ABX noted. (3) Hypertension: Qualifiers: Hypertension type: essential hypertension Qualified Code(s): I10 - Essential (primary) hypertension Code(s): I10 - Essential (primary) hypertension Status: Acute Assessment and Plan: Hydralizine, Metoptolol, clonidine, verapiml Cardura (4) Type 2 diabetes mellitus: Qualifiers: Diabetes mellitus intermodal dispatcher insulin use: without fci use Diabetes mellitus complication status: with kidney complications Diabetes mellitus complication detail: with chronic kidney disease Chronic kidney disease stage: stage 4 (severe) Qualified Code(s): E11.22 - Type 2 diabetes mellitus with diabetic chronic kidney disease; N18.4 - Chronic kidney disease, stage 4 (severe) Code(s): E11.9 - Type 2 diabetes mellitus without complications Status: Acute Assessment and Plan: ssi (5) Hypothyroidism: Qualifiers: Hypothyroidism type: acquired Qualified Code(s): E03.9 - Hypothyroidism, unspecified Code(s): E03.9 - Hypothyroidism, unspecified Status: Acute Assessment and Plan: Levothryoxine (6) Diabetes: Code(s): E11.9 - Type 2 diabetes mellitus without complications Status: Acute (7) Neuropathy of right ankle: Code(s): G57.91 - Unspecified mononeuropathy of right lower limb Status: Acute (8) Oligoarticular psoriatic arthritis: Code(s): L40.50 - Arthropathic psoriasis, unspecified Status: Acute (9) Ulcer of ankle: Qualifiers: Laterality: right Non-pressure ulcer stage: with necrosis of muscle Qualified Code(s): 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 Code(s): L97.309 - Non-pressure chronic ulcer of unspecified ankle with unspecified severity Status: Acute (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 Status: Acute (11) Obesity: Code(s): E66.9 - Obesity, unspecified Status: Acute Assessment and Plan: Barrier to mobility (12) Osteoarthritis: Code(s): M19.90 - Unspecified osteoarthritis, unspecified site Status: Acute (13) HTN (hypertension): Code(s): I10 - Essential (primary) hypertension Status: Acute (14) Hypercholesterolemia: Code(s): E78.00 - Pure hypercholesterolemia, unspecified Status: Acute (15) Morbid obesity with BMI of 40.0-44.9, adult: Code(s): E66.01 - Morbid (severe) obesity due to excess calories; Z68.41 - Body mass index [BMI]40.0-44.9, adult Status: Acute (16) Psoriatic arthritis, 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 Patient will need extensive physical therapy and occupational therapy. Currently patient is total assistance of 2 for transfers. Barriers LLE weakness, deconditioning, obesity HPI Data of Consult Date/Time: 09/29/20 15:45 Requesting Physician: Avinash Curtis MD Primary Care Provider: Joel Tolentino, Consult Narrative Narrative: Rimma Lopes is a 64 year old female with type 2 diabetes mellitus, hypertension, obesity, hyperlipidemia,
[2020-09-29 16:29] LABS: Glucose Point of Care 119 mg/dl (65-105)
[2020-09-29 20:52] VITALS: PULSE 61
[2020-09-29] MEDS: ATORVASTATIN 40 MG TABLET PO (20:52)
[2020-09-29] MEDS: DOXAZOSIN MESYLATE 2 MG TABLET PO (20:52)
[2020-09-29 21:00] VITALS: BP 129/58; PULSE 64; RESP 16; TEMP 36.2; O2SAT 95
[2020-09-29 21:06] LABS: Glucose Point of Care 130 mg/dl (65-105)
[2020-09-30] MEDS: LEVOTHYROXINE SODIUM 25 MCG TABLET PO (05:58)
[2020-09-30 06:00] LABS: Basophils Percent Auto 0.2 % (0.2-1.2); Eosinophils Percent Auto 0.4 % (0-4.4); Hematocrit 28.6 % (37.0-47.0); Hemoglobin 8.4 g/dL (12.0-15.0); Immature Granulocyte Absolute 0.02 K/mm3 (0.00-0.031); Immature Granulocyte Percent A 0.4 % (0-0.5); Lymphocytes Absolute Auto 0.42 K/mm3 (0.9-3.2); Lymphocytes Percent Auto 7.9 % (18.3-44.2); Mean Corpuscular HGB Conc 29.4 g/dl (32-36); Mean Corpuscular Volume 98.6 fl (80-100); Mean Platelet Volume 10.7 fl (7.4-10.4); Monocytes Absolute Auto 0.6 K/mm3 (0.1-0.6); Monocytes Percent Auto 11.1 % (2.6-8.5); Neutrophils Absolute Auto 4.3 K/mm3 (1.3-6.7); Platelet Count Result 156 k/mm3 (150-375); White Blood Count 5.3 K/mm3 (4.5-10.0)
[2020-09-30 06:01] VITALS: BP 152/77; PULSE 71; RESP 16; TEMP 36.3; O2SAT 95
[2020-09-30 06:09] LABS: Albumin Level 2.4 g/dL (3.5-5.1); Alkaline Phosphatase 51 U/L (38-126); Anion Gap 6 mmol/L (8-16); Aspartate Amino Transferase 19 U/L (14-36); Bilirubin,Total < 0.1 mg/dL (0.2-1.3); Blood Urea Nitrogen 54 mg/dL (7-17); Calcium 7.5 mg/dL (8.4-10.2); Carbon Dioxide 20 mmol/L (22-30); Chloride 111 mmol/L (98-107); Cholesterol 90 mg/dL (0-200); Estimated CRCL calculation 19 ml/min; Estimated Glomerular Filt Rate 13; Glucose 64 mg/dL (65-105); HDL Direct 39 mg/dL; Magnesium 1.6 mg/dL (1.6-2.3); Potassium 5.1 mmol/L (3.4-5.0); Sodium 137 mmol/L (137-145); Triglycerides 73 mg/dL (<150)
[2020-09-30 06:20] LABS: LDL Cholesterol Direct 34 mg/dL
[2020-09-30 08:06] VITALS: O2SAT 95
--- NOTE | 2020-09-30 08:22 | P.PNIM_ITS ---
Progress Note: A&P Assessment and Plan (1) Osteomyelitis of right foot: Qualifiers: Osteomyelitis type: chronic, with draining sinus Qualified Code(s): M86.471 - Chronic osteomyelitis with draining sinus, right ankle and foot Code(s): M86.9 - Osteomyelitis, unspecified Status: Acute Assessment and Plan: * Postoperative day 2 * Status post right transtibial amputation. * Care managed by Dr. Curtis * Wound care per wound nurse (Wound vac) * pain control per ortho Tylenol 650mg PO Q6hr, Roxicodone 5mg PO Q4hr, Morphine 2mg IV Q3hr PRN * antibiotic was Cefazolin 1gm Q8hr x 3bags * DVT prophylaxis per surgeon * PT/OT (2) Type 2 diabetes mellitus: Qualifiers: Chronic kidney disease stage: stage 4 (severe) Diabetes mellitus complication detail: with chronic kidney disease Diabetes mellitus complication status: with kidney complications Diabetes mellitus detention insulin use: without joint terminal attack controller use Qualified Code(s): E11.22 - Type 2 diabetes mellitus with diabetic chronic kidney disease; N18.4 - Chronic kidney disease, stage 4 (severe) Code(s): E11.9 - Type 2 diabetes mellitus without complications Status: Acute Assessment and Plan: * Glucose 64 repeat glucose was 71 * treat for hypoglycemia * Hold glipizide 2.5mg PO BID. * Initiate sliding scale insulin * Accu-Cheks * hypoglycemic protocol. * hemoglobin A1c was 4.8%. (09/19/20) * Adjust medications as needed (3) Hypertension: Qualifiers: Hypertension type: essential hypertension Qualified Code(s): I10 - Essential (primary) hypertension Code(s): I10 - Essential (primary) hypertension Status: Acute Assessment and Plan: * Blood pressures were reviewed current blood pressure 152/77 * Continue Hydralizine 100mg PO TID, Metoprolol 100mg pO Q12hr, Clonidine 0.1mg PO Q12hr, Verapamil 240mg PO daily, Cardura 2mg PO Daily * Trend Blood pressure * Adjust medications as needed (4) Hypothyroidism: Qualifiers: Hypothyroidism type: acquired Qualified Code(s): E03.9 - Hypothyroidism, unspecified Code(s): E03.9 - Hypothyroidism, unspecified Status: Acute Assessment and Plan: * Continue levothyroxine 25 mcg PO Daily * TSH 2.910 normal (5) Hypercholesterolemia: Code(s): E78.00 - Pure hypercholesterolemia, unspecified Status: Acute Assessment and Plan: * Continue Atorvastatin 40mg PO at bedtime * Check LFTs in a.m. (6) Chronic kidney disease (CKD) stage G4/A1, severely decreased glomerular filtration rate (GFR) between 15-29 mL/min/1.73 square meter and albuminuria creatinine ratio less than 30 mg/g: Code(s): N18.4 - Chronic kidney disease, stage 4 (severe) Status: Acute Assessment and Plan: * Baseline Creatinine is 1.2-2 * Creatinine is elevated at 3.5 today * IV lasix one time 40mg * Trend Creatinine * Labs in the AM * Blood pressure control * UA, urine sodium, urine creatinine ordered and pending * FRUrea score 43.4% * BNP 16784 * Nephrology consult thank you for recommendations * Patient will need outpatient labs next week and will need to follow up with Dr. Red after that Subjective Date/time seen: 09/30/20 08:22 Interval history: This is a very pleasant 64-year-old female with type 2 diabetes mellitus, hypertension, hyperlipidemia, hypothyroidism, and chronic kidney disease whom the hospitalist service has been consulted fo
--- NOTE | 2020-09-30 08:22 | PM.IMPN ---
Progress Note: A&P Assessment and Plan (1) Osteomyelitis of right foot: Qualifiers: Osteomyelitis type: chronic, with draining sinus Qualified Code(s): M86.471 - Chronic osteomyelitis with draining sinus, right ankle and foot Code(s): M86.9 - Osteomyelitis, unspecified Status: Acute Assessment and Plan: Postoperative day 2 Status post right transtibial amputation. Care managed by Dr. Curtis Wound care per wound nurse (Wound vac) pain control per ortho Tylenol 650mg PO Q6hr, Roxicodone 5mg PO Q4hr, Morphine 2mg IV Q3hr PRN antibiotic was Cefazolin 1gm Q8hr x 3bags DVT prophylaxis per surgeon PT/OT (2) Type 2 diabetes mellitus: Qualifiers: Chronic kidney disease stage: stage 4 (severe) Diabetes mellitus complication detail: with chronic kidney disease Diabetes mellitus complication status: with kidney complications Diabetes mellitus terminal worker insulin use: without group home use Qualified Code(s): E11.22 - Type 2 diabetes mellitus with diabetic chronic kidney disease; N18.4 - Chronic kidney disease, stage 4 (severe) Code(s): E11.9 - Type 2 diabetes mellitus without complications Status: Acute Assessment and Plan: Glucose 64 repeat glucose was 71 treat for hypoglycemia Hold glipizide 2.5mg PO BID. Initiate sliding scale insulin Accu-Cheks hypoglycemic protocol. hemoglobin A1c was 4.8%. (09/19/20) Adjust medications as needed (3) Hypertension: Qualifiers: Hypertension type: essential hypertension Qualified Code(s): I10 - Essential (primary) hypertension Code(s): I10 - Essential (primary) hypertension Status: Acute Assessment and Plan: Blood pressures were reviewed current blood pressure 152/77 Continue Hydralizine 100mg PO TID, Metoprolol 100mg pO Q12hr, Clonidine 0.1mg PO Q12hr, Verapamil 240mg PO daily, Cardura 2mg PO Daily Trend Blood pressure Adjust medications as needed (4) Hypothyroidism: Qualifiers: Hypothyroidism type: acquired Qualified Code(s): E03.9 - Hypothyroidism, unspecified Code(s): E03.9 - Hypothyroidism, unspecified Status: Acute Assessment and Plan: Continue levothyroxine 25 mcg PO Daily TSH 2.910 normal (5) Hypercholesterolemia: Code(s): E78.00 - Pure hypercholesterolemia, unspecified Status: Acute Assessment and Plan: Continue Atorvastatin 40mg PO at bedtime Check LFTs in a.m. (6) Chronic kidney disease (CKD) stage G4/A1, severely decreased glomerular filtration rate (GFR) between 15-29 mL/min/1.73 square meter and albuminuria creatinine ratio less than 30 mg/g: Code(s): N18.4 - Chronic kidney disease, stage 4 (severe) Status: Acute Assessment and Plan: Baseline Creatinine is 1.2-2 Creatinine is elevated at 3.5 today IV lasix one time 40mg Trend Creatinine Labs in the AM Blood pressure control UA, urine sodium, urine creatinine ordered and pending FRUrea score 43.4% BNP 93028 Nephrology consult thank you for recommendations Patient will need outpatient labs next week and will need to follow up with Dr. Red after that Subjective Date/time seen: 09/30/20 08:22 Interval history: This is a very pleasant 64-year-old female with type 2 diabetes mellitus, hypertension, hyperlipidemia, hypothyroidism, and chronic kidney disease whom the hospitalist service has been consulted for management of her medical conditions postoperatively. Today patient is POD 2. She did say that she is having some pain, but it is worse when she is moving around. She is currently lying in bed and rustling in her bag. Patient denied shortness of breath, chest pain, headache, nausea, vomiting, abdominal pain, dizziness, and lightheadedness. I did talk to nephrology today about this patient's creatinine since it is going up and is at 3.50 today. He stated that it could be this melani
[2020-09-30 08:40] VITALS: PULSE 71
[2020-09-30 08:40] LABS: Glucose Point of Care 71 mg/dl (65-105)
[2020-09-30] MEDS: VERAPAMIL HCL ER 240 MG TABLET.ER PO (08:40)
[2020-09-30] MEDS: hydrALAZINE HCL 50 MG TABLET 100 MG PO ×2 (08:40→13:24)
[2020-09-30] MEDS: FAMOTIDINE 20 MG TABLET PO (08:40)
[2020-09-30] MEDS: ASPIRIN 81 MG ENTERIC TABLET PO (08:40)
[2020-09-30] MEDS: DOCUSATE SODIUM 100 MG CAPSULE PO (08:40)
[2020-09-30] MEDS: METOPROLOL TARTRATE 50 MG TAB 100 MG PO (08:40)
[2020-09-30] MEDS: LORATADINE 10 MG TABLET PO (08:41)
[2020-09-30] MEDS: TOLNAFTATE 1% POWDER 45 GM BTL 1 APPLIC TOPICAL (08:41)
[2020-09-30] MEDS: ERGOCALCIFEROL 50,000 UNIT CAPSULE 50000 UNITS PO (08:41)
[2020-09-30] MEDS: FERROUS SULFATE 324 MG TABLET PO (08:41)
[2020-09-30] MEDS: cloNIDine HCL 0.1 MG TABLET PO (08:57)
--- NOTE | 2020-09-30 09:18 | PM.PNORT ---
Progress Note: A&P Assessment and Plan (1) Osteomyelitis of right foot: Qualifiers: Osteomyelitis type: chronic, with draining sinus Qualified Code(s): M86.471 - Chronic osteomyelitis with draining sinus, right ankle and foot Code(s): M86.9 - Osteomyelitis, unspecified Status: Acute Assessment and Plan: Postoperative day 2. Pain under control. Physical therapy / occupational therapy for transfers and ambulation, nonweightbearing right leg. Slow with mobility yesterday. Cont therapy- may need SNF prior to being able to go home. Con't catheter due to immobility. Continue to monitor chronic renal failure. Appreciate hospitalists medical coverage. Wound vac- d/c today as there is no drainage. Subjective Subjective Date/Time Seen: 09/30/20 09:18 Post Op day: 2 Principal diagnosis: RT BKA Interval history: Awake, alert. Pain controlled. Some trouble with mobility and transfers yesterday. Exam Const: General: cooperative, healthy appearing, no acute distress, well developed and alert; No confusion Orientation/consciousness: No confusion HENMT: Head: normal to inspection, normocephalic and atraumatic Eyes: Conjunctivae: conjunctivae normal Sclera: sclerae normal Neck: Neck: supple and nontender Chest: Chest palpation & inspection: normal inspection of the chest Resp: Effort & Inspection: normal respiratory effort and no audible wheezes Cardio: Rate: regular rate Rhythm: regular rhythm : General: Yes deferred Skin: General skin exam: no rashes or lesions noted Neuro: General: No confusion Extrem: General: capillary refill normal Right upper extremity: normal to inspection, full ROM and normal capillary refill Left upper extremity: normal to inspection, full ROM and normal capillary refill Right lower extremity: hip/thigh Details: normal to inspection, knee Details: normal to inspection; no tenderness and lower leg (Below-knee amputation.) Details: other (Wound VAC and dressing removed. Incision clean and dry. No drainage. Tissue and muscles soft. Able to extend knee) Left lower extremity: hip/thigh Details: normal to inspection, knee Details: abnormal ROM ( range of motion deferred secondary to fracture), ankle (no calf tenderness) Details: normal to inspection, normal ROM ( ankle dorsiflexion 5?, plantar flexion 45, inversion 20, eversion 10) and other ( good capillary refill in toes, 2+ DP pulse, light touch sensation intact); no tenderness ( lateral malleolus, anterior ankle and medial ankle) and no swelling ( moderate anterior ankle, moderate lateral ankle) and foot Details: normal capillary refill, toes with normal ROM, vascular exam Details: dorsalis pedis pulse present and normal capillary refill, tendon exam active flexion normal and active extension normal and motor-sensory exam two point discrimination normal and light-touch normal; no tenderness Psych: Affect: normal affect Objective Data Vital Signs Vital Signs: Vital Signs - 24 hr 09/29/20 10:53 09/29/20 14:49 09/29/20 20:52 Temperature 97.1 F L 97.2 F L Pulse Rate 66 61 61 Respiratory Rate 18 18 Blood Pressure 165/95 H 129/50 L Pulse Oximetry 95 97 09/29/20 21:00 09/30/20 06:01 09/30/20 08:06 Temperature 97.1 F L 97.4 F L Pulse Rate 64 71 Respiratory Rate 16 16 Blood Pressure 129/58 L 152/77 H Pulse Oximetry 95 95 95 09/30/20 08:40 Temperature Pulse Rate 71 Respiratory Rate Blood Pressure Pulse Oximetry Intake/Output Intake/Output: Intake & Output 09/27/20 09/28/20 09/29/20 09/30/20 23:59 23:59 23:59 23:59 Intake Total 895 1860 300 Output Total 250 350 575 Balance 645 1510 -275 Meds/Results Medications: Active Medications Generic Name Dose Route Start Last Admin Trade Name Freq PRN Reason Stop Dose Admin Acetaminophen 650 mg 09/28/20 13:08 Acetaminophen 325 Mg Tablet PO Q6H PRN Pain Rated 1-3 Aspirin 81 mg 09/29/20 09:00 09/30/20 08:40 Asp
[2020-09-30 10:31] LABS: Add Urine Microscopic? YES; Appearance Urine Cloudy (Clear); Bacteria Urine Trace /hpf; Bilirubin Urine Negative (Negative); Blood Urine 1+ (Negative); Color Urine Yellow (Yellow); Glucose Urine UA 1+ mg/dL (Negative); Hyaline Casts Urine 20-29 /lpf; Ketones Urine Negative (Negative); Leukocyte Esterase Ur Negative LEU/UL (Negative); Mucus Urine Few /lpf; Nitrate Urine Negative (Negative); Protein Urine 3+ mg/dL (Negative); RBC Urine 21-50 /hpf (0-2); Specific Grav Ur 1.017 (1.001-1.035); Squamous Epithelial Cell Urine Few /hpf (Few); Urobilinogen Urine Negative mg/dL (<2.0)
[2020-09-30 10:35] LABS: Creatinine Urine 82.9 mg/dL; Urea Random Urine 555 MG/DL
--- NOTE | 2020-09-30 10:49 | WPDNEURORHBP ---
Subjective Date/time seen: 09/30/20 10:49 Interval history: Narrative: Rimma Lopes is a 64 year old female with type 2 diabetes mellitus, hypertension, obesity, hyperlipidemia, hypothyroidism, chronic kidney disease who has had longstanding right ankle ulcer with deformity and psoriatic arthritis. Patient presented for right below-knee amputation. Surgery was performed by Dr. Avinash Curtis on 09/28/2020. POD #1 Patient is total assist of 2. Patient requiring ellis lift for medical staff specialist. Patient states that she has been homebound since 2019. Patient admits to deconditioning and LLE weakness from L YO and L TKA. Patient was independent with transfers prior to surgery with WBAT to BLE per patient. Patient was ambulating with WBAT for short distances per her history. Will follow patient over the weekend to see if patient able to tolerate acute rehab and make significant progress within the time frame of rehab. Discussion of SNF with the potential of possible transfer to acute rehab and then home, may be an option. Examiner is hopeful that patient can make gains with transfers over the weekend. may need to be able to assist with transfers. Barriers: Obesity, deconditioning, LLE weakness following history of YO/TKA. POD #2 Patient seen early this morning. Appetite is good. Spoke with physical therapy today regarding transfer training. Patient is aware that she is quite deconditioned and may not qualify for acute rehab. Patient has persistent left lower extremity weakness specifically at the hip girdle. Weak quads hamstrings and gluteus muscles are noted. patient was dependent with all transfers. Physical therapy provided numerous attempts and numerous different techniques for transfers. Patient also continues to have problem solving deficits and immediate memory deficits. Patient is receptive to [facility] for ongoing therapies. I am happy to follow patient at [facility] with potential of returning her to acute rehab if necessary. Otherwise patient can be discharged when appropriate from [facility] home. Would recommend ongoing outpatient versus home health care after discharge. Barriers for progress in mobility are diabetic neuropathy, obesity, deconditioning, amputation. Spoke with Dr. Curtis regarding therapy program. with the potential of SNF. RECOMMEND [facility] FOR ONGOING THERPAY. PATIENT DOES NOT MEET CRITERIA FOR ACUTE REHAB AT THIS TIME. Review of Systems Constitutional: Constitutional: Reports weakness and Reports weight gain Cardiovascular: Cardiovascular: Reports no additional cardiovascular complaints Respiratory: Respiratory: Reports no additional respiratory complaints Neurologic: Reports weakness Functional Status Transfers Ability Ability to Transfer In/Out of Chair: Total Assistance X 2 Exam Narrative: Exam Narrative: Pleasant obese female sitting in recliner. Cognition better today than yesterday. [place] may play a factor. She is less anxious. Head is normocephalic. Extraocular muscles are intact. Neck is supple. Heart rate rhythm is regular. Lungs reveal wheezing, clears with coughing. Abdomen is obese. Bilateral upper extremity strength are 4/5. Left lower extremity strength is roughly 2/5 prosimal and 3/5 distally. Peripheral neuropathy present to L foot in stocking glove distribution. Right lower extremity was not examined but is in an David wrap and wound VAC is noted. Objective Data Vital Signs Vital Signs: Vital Signs - 24 hr 09/29/20 10:53 09/29/20 14:49 09/29/20 20:52 Temperature 36.2 C L 36.2 C L Pulse Rate 66 61 61 Respiratory Rate 18 18 Blood Pressure 165/95 H 129/50 L Pulse Oximetry 95 97 09/29/20 21:00 09/30/20 06:01 09/30/20 08:06 Temperature 36.2 C L 36.3 C L Pulse Rate 64 71 Respiratory Rate 16 16 Blood Pressure 129/58 L 152/77 H Pulse Oximetry 95 95 95 09/30/20 08:40 Temperature Pulse Rate 71 Respiratory Rate Blood Pressure Pulse Oximetry Intake
[2020-09-30 12:27] LABS: Alanine Aminotransferase < 4 U/L (4-35)
[2020-09-30 12:36] LABS: Glucose Point of Care 79 mg/dl (65-105)
[2020-09-30] MEDS: oxyCODONE HCL (*CRX) 5 MG TAB IR PO (13:29)
--- NOTE | 2020-09-30 13:45 | PCOTNOTE ---
Patient refused treatment this session stating, I'm too tired and just worn out. I'm leaving but thank you anyway. Per RN, patient has discharge order in.
[2020-09-30 16:11] VITALS: BP 152/68; PULSE 76; RESP 18; TEMP 37.8; O2SAT 96
--- NOTE | 2020-10-02 11:27 | PM.DS ---
DS: Admitting Diagnosis Admitting Diagnosis Admitting Diagnosis: Nonunion right ankle and subtalar arthrodesis, psoriatic arthritis, diabetes DS: Discharge Diagnosis Discharge Diagnosis (1) Right below-knee amputee: Code(s): Z89.511 - Acquired absence of right leg below knee Status: Acute Assessment and Plan: wound VAC removed day of discharge. Incision clean and dry. Xeroform gauze with sterile gauze applied. Dressing changes to be done daily. Nonweightbearing right leg. May wash and shower. (2) Chronic kidney disease (CKD) stage G4/A1, severely decreased glomerular filtration rate (GFR) between 15-29 mL/min/1.73 square meter and albuminuria creatinine ratio less than 30 mg/g: Code(s): N18.4 - Chronic kidney disease, stage 4 (severe) Status: Acute Assessment and Plan: Labs to be drawn at intermediate facility. Patient to follow up with elementary school librarian as directed. (3) Type 2 diabetes mellitus: Qualifiers: Diabetes mellitus half-way insulin use: without environment friendly landscape designer use Diabetes mellitus complication status: with kidney complications Diabetes mellitus complication detail: with chronic kidney disease Chronic kidney disease stage: stage 4 (severe) Qualified Code(s): E11.22 - Type 2 diabetes mellitus with diabetic chronic kidney disease; N18.4 - Chronic kidney disease, stage 4 (severe) Code(s): E11.9 - Type 2 diabetes mellitus without complications Status: Acute Assessment and Plan: Restart home medication regimen. Continue to follow blood sugars daily (4) Neuropathy of right ankle: Code(s): G57.91 - Unspecified mononeuropathy of right lower limb Status: Acute (5) Oligoarticular psoriatic arthritis: Code(s): L40.50 - Arthropathic psoriasis, unspecified Status: Acute (6) Pseudarthrosis after fusion or arthrodesis: Code(s): M96.0 - Pseudarthrosis after fusion or arthrodesis Status: Acute Assessment and Plan: status post amputation. See above. (7) Chronic pain of right ankle: Code(s): M25.571 - Pain in right ankle and joints of right foot; G89.29 - Other chronic pain Status: Acute DS: Summary Hospital Course Reason for hospitalization: Pseudoarthrosis right ankle fusion with severe deformity, diabetes with neuropathy, psoriatic arthritis. Hospital Course: After multiple attempts at treatment and consultation with Plastic surgery right foot and ankle unable to be salvaged. Patient decided on amputation. Patient presented to hospital to proceed. Taken to the operating room on September 28, underwent a right below-knee amputation without event. Patient admitted to floor postoperatively in stable condition. A wound VAC dressing had been placed intraoperatively. Pain was controlled with oral and intravenous medication. Consultation with hospitalist group for medical management. Patient started on diabetic diet. Hospital day 2 the wound VAC dressing was removed. The incision was clean and dry. Xeroform and sterile gauze dressings started. Pain well controlled with oral medication. Patient tolerated regular diet and voiding appropriately. Creatinine noted to be chronically elevated. Patient followed by elementary school librarian as an outpatient. Patient accepted and cleared for discharge to intermediate facility. Status at Discharge Cognitive/behavioral status at discharge: Alert and oriented x3. Functional status at discharge: wheelchair bound Overall status at discharge: patient is progressing back to baseline Time Spent with Patient Time attestation: Total time spent providing and/or coordinating discharge services: Exam Const: General: cooperative, healthy appearing, no acute distress, well developed and alert; No confusion Orientation/consciousness: No confusion HENMT: Head: normal to inspection, normocephalic and atraumatic Eyes: Conjunctivae: conjunctivae normal Sclera: sclerae normal Neck: Ne
== END 2020-09-30 16:30 | DRG 475 ==
LOC: ANH3MED 13:15
PROVIDERS: Nurse Practitioner; Physician Assistant; Admitting Provider Orthopaedic Surgery; PCP Family Medicine; Visit Provider Orthopaedic Surgery
PROC: 0Y6H0Z3 Detachment at Right Lower Leg, Low, Open Approach (ICD-10-PCS; CPT 27882; principal; 2020-09-28 08:00)
DX: M96.0 Pseudarthrosis after fusion or arthrodesis (principal); N18.4 Chronic kidney disease, stage 4 (severe); Z68.42 Body mass index [BMI] 45.0-49.9, adult; L40.59 Other psoriatic arthropathy; M21.6X1 Other acquired deformities of right foot; E11.42 Type 2 diabetes mellitus with diabetic polyneuropathy; L97.519 Non-pressure chronic ulcer of other part of right foot with unspecified severity; I12.9 Hypertensive chronic kidney disease with stage 1 through stage 4 chronic kidney disease, or unspecified chronic kidney disease; E11.22 Type 2 diabetes mellitus with diabetic chronic kidney disease; G89.29 Other chronic pain; E66.01 Morbid (severe) obesity due to excess calories; M19.90 Unspecified osteoarthritis, unspecified site; E03.9 Hypothyroidism, unspecified; E78.00 Pure hypercholesterolemia, unspecified; Z96.642 Presence of left artificial hip joint; Z96.652 Presence of left artificial knee joint
CPT/HCPCS: 36415; 80048; 80053; 80061; 80076; 81001; 82570; 82948; 83735; 83880; 84443; 84540; 85025; 88307; 88311; 97110; 97161; 97166; 97530; A9270; C9803; J0171; J0690; J1100; J1885; J2250; J2370; J2405; J2704; J3010; J3480; J7120; U0003; U0005

== ENCOUNTER 2020-10-02 04:51 | Inpatient (IN) | payer MEDICARE, BC, SELFPAY ==
[2020-10-02] VITALS (12 sets, daily range): BP systolic 136–212; BP diastolic 66–91; PULSE 71–85; RESP 16–28; TEMP 36.3–36.7; O2SAT 94–97
--- NOTE | ~2020-10-02 | XR_ITS ---
EXAMINATION: XR chest 1V portable DATE: 10/05/2020 08:54 INDICATION: Shortness of breath. TECHNIQUE: A single frontal view of the chest was obtained. COMPARISON: Chest single view 09/24/2020 FINDINGS: Sensitivity is decreased by obesity. There is no pneumonia, pleural effusion, or pneumothor ax. Calcified left hilar and mediastinal lymph nodes are consistent with old granulomatous disease. C ardiomegaly is noted. IMPRESSION: 1. Cardiomegaly. Reviewed, dictated and finalized at location A. IMPRESSION: 1. Cardiomegaly.
--- NOTE | ~2020-10-02 | XR_ITS ---
EXAMINATION: XR chest 1V portable DATE: 10/02/2020 05:46 INDICATION: Wheezing. Altered mental status. Hypoglycemic. TECHNIQUE: frontal view of the chest was obtained. COMPARISON: None FINDINGS: Patient is rotated towards the right. Cardiomegaly. Decreased lung volumes. No focal airspace opaciti es, pulmonary edema, pleural effusion or pneumothorax. Calcified left hilar and mediastinal lymph nod es consistent with old granulomatous disease. IMPRESSION: 1. Cardiomegaly. No acute cardiopulmonary disease. Reviewed, dictated and finalized at location A.
--- NOTE | 2020-10-02 04:59 | ED.RECABL ---
HPI - Recheck/Abnormal Lab/Rx General Chief Complaint: Recheck/Abnormal Lab/Rx Stated Complaint: low blood sugar- 30 Time Seen by Provider: 10/02/20 04:59 History of Present Illness HPI narrative: 64 yo female w/ h/o DM on glipizide brought in from rehab by EMS for hypoglycemia. She was recently in the hospital for a foot amputation after failed ankle reconstruction. This morning she was found minimally responsive. EMS was called and when they arrival she was found to have a glucose of 30. D10 was started and on arrival here she is fully oriented. She reports no previous episodes. She has had profuse watery diarrhea since leaving the hospital. She did recieve antibiotics while here. She also says that she has had SOB and wheezing. This is abnormal for her. Related Data Home Medications Medication Instructions Recorded Confirmed aspirin 81 mg PO DAILY 02/01/19 09/28/20 atorvastatin [Lipitor] 40 mg PO HS 02/01/19 09/28/20 glipizide 2.5 mg PO BID 02/01/19 09/28/20 hydralazine 100 mg PO TID 02/01/19 09/28/20 verapamil 240 mg PO QAM 02/01/19 09/28/20 clonidine HCl 0.1 mg tablet 0.1 mg PO BID 08/28/20 09/28/20 doxazosin 2 mg tablet 2 mg PO HS 08/28/20 09/28/20 levothyroxine 25 mcg capsule 25 mcg PO QAM 08/28/20 09/28/20 Zyrtec 10 mg PO DAILY 09/19/20 09/28/20 ergocalciferol (vitamin D2) 1,250 mcg PO WEEKLY 09/19/20 09/28/20 ferrous sulfate [Iron (ferrous 239 mg PO DAILY 09/19/20 09/28/20 sulfate)] metoprolol tartrate 100 mg PO BID 09/19/20 09/28/20 acetaminophen 325 mg PO DAILY PRN 09/28/20 09/28/20 calcium carbonate [Tums] 500 mg PO PRN PRN 09/28/20 09/28/20 Allergies Allergy/AdvReac Type Severity Reaction Status Date / Time sulfamethoxazole Allergy Intermediate HIGH Verified 09/28/20 13:47 POTASSIUM trimethoprim Allergy Intermediate HIGH Verified 09/28/20 13:47 POTASSIUM carvedilol AdvReac Unknown Dizziness Verified 09/28/20 13:47 oxycodone AdvReac Unknown Dizziness Verified 09/28/20 13:47 Review of Systems Review of Systems: All systems reviewed & are unremarkable except as noted in HPI and below Constitutional: Constitutional: Denies chills and Denies fever(s) ENT: Comments: dry mouth Cardiovascular: Cardiovascular: Denies chest pain Respiratory: Respiratory: Reports dyspnea and Reports wheezing Neurologic: Reports as per HPI [facility] Past Medical History Medical History Chronic kidney disease (CKD) stage G4/A1, severely decreased glomerular filtration rate (GFR) between 15-29 mL/min/1.73 square meter and albuminuria creatinine ratio less than 30 mg/g Hypercholesterolemia Hypertension Hypothyroidism Morbid obesity with BMI of 40.0-44.9, adult Osteoarthritis Psoriatic arthritis, destructive type Single seizure Type 2 diabetes mellitus Surgical History Surgical History History of orthopedic surgery Right ankle reconstruction. Left foot reconstruction. Right mandibular surgery. Left total hip arthroplasty. Right transtibial amputation. Left knee arthroplasty. Family History Family History Other Diabetes mellitus Family history of alcoholism Hypertension Social History Social History Social History: The patient lives in [place] with her . She has no children. 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 Lifelong nonsmoker. Drinks perhaps 2 alcoholic beverages a week. No illicit substance use. She designates her , David Lopes, as her surrogate decision maker. Code status: Full code. Gender identity (if verbalized by the patient): Female Exam Const: General: healthy appearing, no acute distress and alert Orientation/consciousness: patient oriented x3 HENMT: Mouth: Yes dry mucous membranes Neck: Neck: normal visual inspection Resp: Effort
--- NOTE | 2020-10-02 05:07 | PC.NURSE ---
Pt presents to ED with AMS due to hypoglycemia. Upon arrival of EMS glucose was 30. Glucose was 119 upon arrival to ED. Pt arrived with D10 infusing to left hand via 20g IV. Approx 300ml of D10 infused precinct captain; infusion allowed to complete. Pt arrived to ED alert and oriented x4. Pt denies all pain and discomfort at this time. Pt vitals are stable. Pt recently had a left side BKA; stump is kelvin wrapped upon arrival to ED and is clean and dry with no drainage. EDMD presented to bedside. Pt remains alert and oriented and denies hx of hypoglycemic episodes and states she does not know what happened. Pt is insists that her glucose is checked daily and states she felt fine before she went to bed. Pt noted to be wheezing and short of breath with exertion. O2 saturation is 100% on room air. Pt is now resting on cart in its lowest position with call button and personal items within reach and advised to press call button for assistance.
--- NOTE | 2020-10-02 05:08 | ECG_ITS ---
Measurements Intervals [place] Rate: 76 P: 87 SC: 177 QRS: 6 QRSD: 88 T: 1 QT: 374 QTc: 421 Interpretive Statements SINUS RHYTHM BASELINE ARTIFACT- I, II, AVR, V1, V5 NORMAL ECG Electronically Signed On 10-02-2020 10:57:46 CDT by Kosta Villatoro D.O.
[2020-10-02] MEDS: SODIUM CHLORIDE 0.9% IV 1,000 ML 999 ML IV CONT (05:28)
--- NOTE | 2020-10-02 06:08 | PC.NURSE ---
Pt noted to have x2 episodes of incontinent stool and anastasiia area cleansed and linens changed. Pt repositioned in bed for comfort. Provided warm blankets for comfort. IV was accidentally removed in process of cleaning pt. Line replaced. Pt now resting on cart in its lowest position with call button and personal items within reach. Veneer Jointer Helper remains at bedside.
[2020-10-02 06:11] LABS: Basophils Percent Auto 0.4 % (0.2-1.2); Eosinophils Percent Auto 0.1 % (0-4.4); Hematocrit 33.3 % (37.0-47.0); Hemoglobin 9.9 g/dL (12.0-15.0); Immature Granulocyte Absolute 0.04 K/mm3 (0.00-0.031); Immature Granulocyte Percent A 0.5 % (0-0.5); Lymphocytes Absolute Auto 0.23 K/mm3 (0.9-3.2); Lymphocytes Percent Auto 2.8 % (18.3-44.2); Mean Corpuscular HGB Conc 29.7 g/dl (32-36); Mean Corpuscular Hemoglobin 28.9 pg (26-34); Mean Corpuscular Volume 97.1 fl (80-100); Mean Platelet Volume 10.7 fl (7.4-10.4); Monocytes Absolute Auto 0.6 K/mm3 (0.1-0.6); Monocytes Percent Auto 7.9 % (2.6-8.5); Neutrophils Absolute Auto 7.1 K/mm3 (1.3-6.7); Neutrophils Percent Auto 88.3 % (45.5-73.1); Platelet Count Result 191 k/mm3 (150-375); Red Blood Count 3.43 M/mm3 (4.2-5.4); Red Cell Distribution Width 15.1 % (11.5-14.5); White Blood Count 8.1 K/mm3 (4.5-10.0)
[2020-10-02 06:25] LABS: Prothrombin Time 13.6 Seconds (11.1-14.7)
[2020-10-02 06:26] LABS: Glucose Point of Care 119 mg/dl (65-105)
[2020-10-02 06:26] LABS: Partial Thromboplastin Time 33.2 SECONDS (22.3-36.8)
[2020-10-02 06:26] LABS: Glucose Point of Care 106 mg/dl (65-105)
[2020-10-02 06:29] LABS: Albumin Level 2.6 g/dL (3.5-5.1); Alkaline Phosphatase 64 U/L (38-126); Anion Gap 8 mmol/L (8-16); Aspartate Amino Transferase 22 U/L (14-36); Bilirubin,Total 0.2 mg/dL (0.2-1.3); Blood Urea Nitrogen 57 mg/dL (7-17); Calcium 7.8 mg/dL (8.4-10.2); Carbon Dioxide 20 mmol/L (22-30); Chloride 111 mmol/L (98-107); Estimated CRCL calculation 21 ml/min; Estimated Glomerular Filt Rate 14; Glucose 114 mg/dL (65-105); Potassium 4.2 mmol/L (3.4-5.0); Sodium 139 mmol/L (137-145)
[2020-10-02 06:32] LABS: Lactic Acid Reflex 0.8 mmol/L (0.7-2.1)
[2020-10-02 06:40] LABS: Add Urine Microscopic? YES; Appearance Urine Clear (Clear); Bacteria Urine Trace /hpf; Bilirubin Urine Negative (Negative); Blood Urine Negative (Negative); Color Urine Yellow (Yellow); Glucose Urine UA 1+ mg/dL (Negative); Ketones Urine Negative (Negative); Leukocyte Esterase Ur Negative LEU/UL (Negative); Mucus Urine Rare /lpf; Nitrate Urine Negative (Negative); Protein Urine 3+ mg/dL (Negative); RBC Urine 0-2 /hpf (0-2); Specific Grav Ur 1.015 (1.001-1.035); Squamous Epithelial Cell Urine Rare /hpf (Few); Urobilinogen Urine Negative mg/dL (<2.0)
[2020-10-02 06:51] LABS: CRP 24.1 mg/dL (<1.0)
[2020-10-02 07:09] LABS: Alanine Aminotransferase < 4 U/L (4-35)
[2020-10-02] MEDS: DEXTROSE 5%/0.45% SOD CHL 1,000 ML 100 ML IV CONT ×2 (07:31→18:38)
[2020-10-02] MEDS: VANCOMYCIN ORAL 125 MG/2.5 ML SYRUP PO (07:31)
[2020-10-02] MEDS: hydrALAZINE HCL 20 MG/ML VIAL 10 MG IV PUSH (07:31)
--- NOTE | 2020-10-02 07:48 | PC.NURSE ---
Report called to Reba. Dougie to send pt to floor.
[2020-10-02 08:19] LABS: Magnesium 1.6 mg/dL (1.6-2.3)
[2020-10-02 08:20] LABS: Hemoglobin A1C 4.7 % (<5.7)
--- NOTE | 2020-10-02 09:25 | ADMGEN ---
This patient, Rimma Lopes, was admitted to Medical Room 343-01. Patient/family oriented to hospital policies and general routines including ID bracelet, bed and alarms, visiting hours, pain management, procedures, bathroom and other care routines, personal items, smoking policy, room service/diet, and visiting hours. Information on how to activate the Rapid Response Team has been discussed. Patient/Family are encouraged to report perceived risks to care and to ask questions if they do not understand what they are told or what they should do. Patient in bed resting comfortably with no complaints at this time. Will continue to monitor patient.
[2020-10-02 10:25] LABS: Glucose Point of Care 83 mg/dl (65-105)
[2020-10-02 10:25] LABS: Glucose Point of Care 64 mg/dl (65-105)
[2020-10-02 10:25] LABS: Glucose Point of Care 50 mg/dl (65-105)
[2020-10-02 11:43] LABS: Glucose Point of Care 96 mg/dl (65-105)
--- NOTE | 2020-10-02 13:44 | PM.PNORT ---
Progress Note: A&P Assessment and Plan (1) Right below-knee amputee: Code(s): Z89.511 - Acquired absence of right leg below knee Status: Acute Assessment and Plan: POD #4: Right BKA Patient readmitted in the setting of an acute hypoglycemic event and diarrhea since discharge. Stump with incision well approximated. Surrounding tissue with some blistering and ecchymosis.Continue daily dressing changes with adaptic/kerlex and cover dry. No indication for wound VAC at this time. Elevate right stump on pillows. Pain control. Will continue to follow. Subjective Subjective Date/Time Seen: 10/02/20 13:44 Post Op day: 4 Interval history: POD #4: Right BKA Patient readmitted for a hypoglycemic event and diarrhea since discharge. Overall, patient reports she is feeling better since admission. She does feel weak and tired. She is concerned about her diarrhea. She is tolerating PO intake well. Reports some pain of the right stump. No other concerns. Review of Systems Review of Systems: All systems reviewed & are unremarkable except as noted in HPI and below (HPI ) Constitutional: Constitutional: Reports fatigue, Denies fever(s) and Reports weakness Cardiovascular: Cardiovascular: Denies chest pain and Denies lightheadedness Respiratory: Respiratory: Reports no additional respiratory complaints Gastrointestinal: Gastrointestinal: Reports diarrhea, Denies nausea and Denies vomiting Genitourinary: Comments: Colunga in place Musculoskeletal: Musculoskeletal: Reports as per HPI Exam Const: General: cooperative, healthy appearing, no acute distress, well developed and alert; No confusion Orientation/consciousness: No confusion HENMT: Head: normal to inspection, normocephalic and atraumatic Eyes: Conjunctivae: conjunctivae normal Sclera: sclerae normal Neck: Neck: supple and nontender Chest: Chest palpation & inspection: normal inspection of the chest Resp: Effort & Inspection: normal respiratory effort and no audible wheezes Cardio: Rate: regular rate Rhythm: regular rhythm GI: GI Palp: No Tenderness to palpation present (GI) and No Guarding due to palpation present (GI) : General: Yes deferred Urinary Catheter: Urinary Catheter: patent and draining and urine clear Skin: General skin exam: no rashes or lesions noted Neuro: General: No gait normal and No confusion Cognition (Neuro): normal cognition Extrem: General: capillary refill normal Right lower extremity: hip/thigh Details: normal to inspection, knee Details: normal to inspection; no tenderness and lower leg (Below-knee amputation.) Details: other (Tissue and muscles soft. Able to extend knee) Left lower extremity: hip/thigh Details: normal to inspection, knee Details: abnormal ROM ( range of motion deferred secondary to fracture), ankle (no calf tenderness) Details: normal to inspection, normal ROM ( ankle dorsiflexion 5?, plantar flexion 45, inversion 20, eversion 10) and other ( good capillary refill in toes, 2+ DP pulse, light touch sensation intact); no tenderness ( lateral malleolus, anterior ankle and medial ankle) and no swelling ( moderate anterior ankle, moderate lateral ankle) and foot Details: normal capillary refill, toes with normal ROM, vascular exam Details: dorsalis pedis pulse present and normal capillary refill, tendon exam active flexion normal and active extension normal and motor-sensory exam two point discrimination normal and light-touch normal; no tenderness Other: Incision well approximated. Large serous filled blisters on the more plantar aspect of the stump with some ecchymotic discoloration at the base of the stump. No redness/warmth. Mild swelling. No malodor. Psych: Affect: normal affect Objective Data Vital Signs Vital Signs: Vital Signs - 24 hr 10/02/20 04:56 10/02/20 05:03 10/02/20 07:35 Temperature 36.3 C L Pulse Rate 71 75 Respiratory Rate 20 21 H 28 H Blood Pressure 201/86 H 196/90 H Puls
[2020-10-02] MEDS: cloNIDine HCL 0.1 MG TABLET PO ×2 (13:49→20:33)
[2020-10-02] MEDS: ASPIRIN 81 MG ENTERIC TABLET PO (13:49)
[2020-10-02] MEDS: ERGOCALCIFEROL 50,000 UNIT CAPSULE 50000 UNITS PO (13:49)
[2020-10-02] MEDS: VERAPAMIL HCL ER 240 MG TABLET.ER PO (13:50)
[2020-10-02] MEDS: METOPROLOL TARTRATE 50 MG TAB 100 MG PO ×2 (13:50→20:33)
[2020-10-02] MEDS: HEPARIN SODIUM 5,000 UNITS/ML VIAL 5000 UNITS SUB-Q ×2 (13:50→20:33)
[2020-10-02] MEDS: LORATADINE 10 MG TABLET PO (13:50)
[2020-10-02] MEDS: hydrALAZINE HCL 50 MG TABLET 100 MG PO ×2 (13:51→17:53)
[2020-10-02 14:01] LABS: Glucose Point of Care 71 mg/dl (65-105)
--- NOTE | 2020-10-02 14:22 | PM.IMHP ---
H&P: HPI History of Present Illness Date/Time: 10/02/20 14:22 patient is 64-year-old female with history of diabetes status post right [id number] amputation patient was in rehab and was just discharged to further rehab at the [facility] home, however early this morning patient was found unresponsive EMS was called and upon arrival, EMS found patient blood sugar was 30 patient was started on D10 and brought emergency department for further evaluation, in emergency depart patient was feeling better and fully awake, patient stated since in the residential patient has several bouts of profuse watery diarrhea, denies any blood mucus or foul smell, patient was not discharged on any antibiotics from the rehab to [facility], currently patient is feeling much better other than complains pain in her stump, the wound was seen by wound team and REAL ESTATE MANAGER of Dr. Stapleton and wound appears to be healing well and does not need wound vac. Chief Complaint: hypoglycemia Review of Systems Review of Systems: All systems reviewed & are unremarkable except as noted in HPI and below PMFSH Past Medical History Medical History (Updated 10/02/20 @ 11:34 by Avinash Curtis MD) Chronic kidney disease (CKD) stage G4/A1, severely decreased glomerular filtration rate (GFR) between 15-29 mL/min/1.73 square meter and albuminuria creatinine ratio less than 30 mg/g Chronic pain of right ankle Hypercholesterolemia Hypertension Hypothyroidism Morbid obesity with BMI of 40.0-44.9, adult Osteoarthritis Primary localized osteoarthritis of right knee Pseudarthrosis after fusion or arthrodesis Psoriatic arthritis, destructive type Single seizure Type 2 diabetes mellitus Surgical History Surgical History (Updated 10/02/20 @ 11:34 by Avinash Curtis MD) History of orthopedic surgery Right ankle reconstruction. Left foot reconstruction. Right mandibular surgery. Left total hip arthroplasty. Right transtibial amputation. Left knee arthroplasty. Presence of left artificial hip joint Family History Family History Other Diabetes mellitus Family history of alcoholism Hypertension Social History Social History Social History: The patient lives in [place] with her . She has no children. 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 Lifelong nonsmoker. Drinks perhaps 2 alcoholic beverages a week. No illicit substance use. She designates her , David Lopes, as her surrogate decision maker. Code status: Full code. Smoking status: Never smoker Alcohol intake: current Drinks per week: 3 Substance use: never Substance use type: does not use Gender identity (if verbalized by the patient): Female Sexual Orientation (if Verbalized by the Patient): Straight or Heterosexual Spiritual care concerns: No Meds Home Medications and Allergies Home Medications Medication Instructions Recorded Confirmed Type aspirin 81 mg PO DAILY 02/01/19 10/02/20 History atorvastatin [Lipitor] 40 mg PO HS 02/01/19 10/02/20 History glipizide 2.5 mg PO BID 02/01/19 10/02/20 History hydralazine 100 mg PO TID 02/01/19 10/02/20 History verapamil 240 mg PO QAM 02/01/19 10/02/20 History clonidine HCl 0.1 mg tablet 0.1 mg PO BID 08/28/20 10/02/20 History doxazosin 2 mg tablet 2 mg PO HS 08/28/20 10/02/20 History levothyroxine 25 mcg capsule 25 mcg PO QAM 08/28/20 10/02/20 History Zyrtec 10 mg PO DAILY 09/19/20 10/02/20 History ergocalciferol (vitamin D2) 1,250 mcg PO WEEKLY 09/19/20 10/02/20 History ferrous sulfate [Iron (ferrous 239 mg PO DAILY 09/19/20 10/02/20 History sulfate)] metoprolol tartrate 100 mg PO BID 09/19/20 10/02/20 History acetaminophen 325 mg PO Q6H PRN 09/28/20 10/02/20 History calcium carbonate [Tums] 500 mg PO PRN PRN 09/28/20 10/02/20 History hydrocodone-acetaminophen 1 tablet PO Q6H PRN #30 tablet 09/30/20 10/02/20
[2020-10-02 17:03] LABS: Glucose Point of Care 126 mg/dl (65-105)
[2020-10-02] MEDS: ATORVASTATIN 40 MG TABLET PO (20:32)
[2020-10-02] MEDS: DOXAZOSIN MESYLATE 2 MG TABLET PO (20:33)
[2020-10-02 23:50] LABS: Glucose Point of Care 131 mg/dl (65-105)
[2020-10-03] MEDS: ACETAMINOPHEN 325 MG TABLET PO (02:38)
[2020-10-03] MEDS: DEXTROSE 5%/0.45% SOD CHL 1,000 ML 100 ML IV CONT ×2 (04:42→13:53)
[2020-10-03 05:20] VITALS: BP 159/69; PULSE 80; RESP 18; TEMP 37.1; O2SAT 96
[2020-10-03] MEDS: LEVOTHYROXINE SODIUM 25 MCG TABLET PO (05:49)
[2020-10-03 05:59] LABS: Glucose Point of Care 106 mg/dl (65-105)
[2020-10-03 06:12] LABS: Hematocrit 28.1 % (37.0-47.0); Hemoglobin 8.5 g/dL (12.0-15.0); Mean Corpuscular HGB Conc 30.2 g/dl (32-36); Mean Corpuscular Hemoglobin 28.7 pg (26-34); Mean Corpuscular Volume 94.9 fl (80-100); Mean Platelet Volume 10.7 fl (7.4-10.4); Platelet Count Result 179 k/mm3 (150-375); Red Blood Count 2.96 M/mm3 (4.2-5.4); Red Cell Distribution Width 14.9 % (11.5-14.5)
[2020-10-03 06:13] LABS: Albumin Level 2.2 g/dL (3.5-5.1); Anion Gap 6 mmol/L (8-16); Blood Urea Nitrogen 55 mg/dL (7-17); Calcium 7.4 mg/dL (8.4-10.2); Carbon Dioxide 19 mmol/L (22-30); Chloride 111 mmol/L (98-107); Estimated CRCL calculation 22 ml/min; Estimated Glomerular Filt Rate 15; Glucose 111 mg/dL (65-105); Phosphorus 3.7 mg/dL (2.5-4.5); Potassium 4.5 mmol/L (3.4-5.0); Sodium 136 mmol/L (137-145)
--- NOTE | 2020-10-03 08:29 | PM.PNORT ---
Progress Note: A&P Assessment and Plan (1) Right below-knee amputee: Onset Date: 09/28/20 Code(s): Z89.511 - Acquired absence of right leg below knee Status: Acute Assessment and Plan: Postop day 5 right below-knee amputation. Patient readmitted for hypoglycemia and diarrhea. Superficial skin blistering at the stump site. Recommend start diet supplement increased protein. Daily dressing changes with Xeroform. Blister decompressed today. Skin otherwise intact. Some ecchymosis noted but appears superficial. We will continue to monitor. May be up to chair. Nonweightbearing right leg. Pain appears to be controlled. Return to intermediate facility/rehab when medically stable. Subjective Subjective Date/Time Seen: 10/03/20 08:29 Post Op day: 5 Principal diagnosis: Right below-knee amputation Interval history: patient readmitted for hypoglycemia, diarrhea. Patient states feeling little bit better today. She is alert and answers questions appropriately. Pain with palpation of the right leg otherwise minimal pain at rest. Exam Const: General: cooperative, healthy appearing, no acute distress, well developed and alert; No confusion Orientation/consciousness: No confusion HENMT: Head: normal to inspection, normocephalic and atraumatic Eyes: Conjunctivae: conjunctivae normal Sclera: sclerae normal Neck: Neck: supple and nontender Chest: Chest palpation & inspection: normal inspection of the chest Resp: Effort & Inspection: normal respiratory effort and no audible wheezes Cardio: Rate: regular rate Rhythm: regular rhythm GI: GI Palp: No Tenderness to palpation present (GI) and No Guarding due to palpation present (GI) : General: Yes deferred Urinary Catheter: Urinary Catheter: patent and draining and urine clear Skin: General skin exam: no rashes or lesions noted Neuro: General: No gait normal and No confusion Cognition (Neuro): normal cognition Extrem: General: capillary refill normal Right lower extremity: hip/thigh Details: normal to inspection, knee Details: normal to inspection; no tenderness and lower leg (Below-knee amputation.) Details: other (Tissue and muscles soft. Able to extend knee) Left lower extremity: hip/thigh Details: normal to inspection, knee Details: abnormal ROM ( range of motion deferred secondary to fracture), ankle (no calf tenderness) Details: normal to inspection, normal ROM ( ankle dorsiflexion 5?, plantar flexion 45, inversion 20, eversion 10) and other ( good capillary refill in toes, 2+ DP pulse, light touch sensation intact); no tenderness ( lateral malleolus, anterior ankle and medial ankle) and no swelling ( moderate anterior ankle, moderate lateral ankle) and foot Details: normal capillary refill, toes with normal ROM, vascular exam Details: dorsalis pedis pulse present and normal capillary refill, tendon exam active flexion normal and active extension normal and motor-sensory exam two point discrimination normal and light-touch normal; no tenderness Other: Incision well approximated. Large serous filled blisters on the more plantar aspect of the stump with some ecchymotic discoloration at the base of the stump. No redness/warmth. Mild swelling. No malodor. Blister drained at bedside today. No purulence, erythema or warmth. Psych: Affect: normal affect Objective Data Vital Signs Vital Signs: Vital Signs - 24 hr 10/02/20 12:00 10/02/20 13:27 10/02/20 13:50 Temperature Pulse Rate 79 85 Respiratory Rate Blood Pressure Pulse Oximetry 94 10/02/20 14:00 10/02/20 15:56 10/02/20 16:05 Temperature 98.1 F Pulse Rate 85 81 Respiratory Rate 16 Blood Pressure 212/88 H 136/91 H Pulse Oximetry 97 10/02/20 17:53 10/02/20 20:33 10/02/20 20:46 Temperature 98 F Pulse Rate 82 76 Respiratory Rate 20 Blood Pressure 144/66 H 155/72 H Pulse Oximetry 97 10/03/20 05:20 Temperature 98.7 F Pulse Rate 80 Respiratory Rate
[2020-10-03 08:48] VITALS: BMI 10.0
[2020-10-03] MEDS: ASPIRIN 81 MG ENTERIC TABLET PO (10:21)
[2020-10-03] MEDS: FERROUS SULFATE 324 MG TABLET PO (10:21)
[2020-10-03] MEDS: LORATADINE 10 MG TABLET PO (10:21)
[2020-10-03] MEDS: cloNIDine HCL 0.1 MG TABLET PO ×2 (10:21→21:31)
[2020-10-03] MEDS: hydrALAZINE HCL 50 MG TABLET 100 MG PO ×3 (10:22→17:20)
[2020-10-03 10:24] VITALS: PULSE 80; RESP 18; O2SAT 95
[2020-10-03] MEDS: METOPROLOL TARTRATE 50 MG TAB 100 MG PO ×2 (10:24→21:32)
[2020-10-03] MEDS: VERAPAMIL HCL ER 240 MG TABLET.ER PO (10:24)
[2020-10-03 11:59] LABS: Glucose Point of Care 148 mg/dl (65-105)
[2020-10-03 14:00] VITALS: BP 159/71; PULSE 74; RESP 24; TEMP 36; O2SAT 100
--- NOTE | 2020-10-03 16:54 | PM.IMPN ---
Progress Note: A&P Assessment and Plan (1) Hypoglycemia: Code(s): E16.2 - Hypoglycemia, unspecified Status: Acute Assessment and Plan: 10/02/20 14:22 patient is 64-year-old female with history of diabetes status post right [id number] amputation patient was in rehab and was just discharged to further rehab at the [facility], however early this morning patient was found unresponsive EMS was called and upon arrival, EMS found patient blood sugar was 30 patient was started on D10 and brought emergency department for further evaluation, in emergency depart patient was feeling better and fully awake, patient stated since in the care home patient has several bouts of profuse watery diarrhea, denies any blood mucus or foul smell, patient was not discharged on any antibiotics from the rehab to [facility], currently patient is feeling much better other than complains pain in her stump, the wound was seen by wound team and GRAIN MILL WORKER of Dr. Stapleton and wound appears to be healing well and does not need wound vac. patient is on glimepiride for her diabetes, most likely hypoglycemia secondary to patient may have received hypoglycemic med but may not have eaten, and due to profound diarrhea and poor appetite, will hold patient the medication, will monitor with sliding scale, once clinically stable will reusme glimepiride Hypoglycemia is resolved and altered mental status is resolved (2) Chronic pain of right ankle: Code(s): M25.571 - Pain in right ankle and joints of right foot; G89.29 - Other chronic pain Status: Acute Assessment and Plan: status post amputation the right lower extremity below the knee, patient seen by wounds team as well as orthopedic service. (3) Presence of left artificial hip joint: Code(s): Z96.642 - Presence of left artificial hip joint Status: Acute (4) Pseudarthrosis after fusion or arthrodesis: Code(s): M96.0 - Pseudarthrosis after fusion or arthrodesis Status: Acute (5) Diarrhea: Code(s): R19.7 - Diarrhea, unspecified Status: Acute (6) Dehydration: Code(s): E86.0 - Dehydration Status: Acute (7) Right below-knee amputee: Onset Date: 09/28/20 Code(s): Z89.511 - Acquired absence of right leg below knee Status: Acute (8) Chronic kidney disease (CKD) stage G4/A1, severely decreased glomerular filtration rate (GFR) between 15-29 mL/min/1.73 square meter and albuminuria creatinine ratio less than 30 mg/g: Code(s): N18.4 - Chronic kidney disease, stage 4 (severe) Status: Acute Assessment and Plan: creatinine around 3 last month about baseline. In 2020 creatinine ranging around 1.5 will continue to monitor here (9) Type 2 diabetes mellitus: Qualifiers: Diabetes mellitus long-term insulin use: without long-term use Diabetes mellitus complication status: with kidney complications Diabetes mellitus complication detail: with chronic kidney disease Chronic kidney disease stage: stage 4 (severe) Qualified Code(s): E11.22 - Type 2 diabetes mellitus with diabetic chronic kidney disease; N18.4 - Chronic kidney disease, stage 4 (severe) Code(s): E11.9 - Type 2 diabetes mellitus without complications Status: Acute (10) Hypertension: Qualifiers: Hypertension type: essential hypertension Qualified Code(s): I10 - Essential (primary) hypertension Code(s): I10 - Essential (primary) hypertension Status: Acute (11) Hypothyroidism: Qualifiers: Hypothyroidism type: acquired Qualified Code(s): E03.9 - Hypothyroidism, unspecified Code(s): E03.9 - Hypothyroidism, unspecified Status: Acute (12) Morbid obesity with BMI of 40.0-44.9, adult: Code(s): E66.01 - Morbid (severe) obesity due to excess calories; Z68.41 - Body mass index [BMI]40.0-44.9, adult Status: Acute (13) Hypercholesterolemia: Code(s):
[2020-10-03 17:45] LABS: Glucose Point of Care 126 mg/dl (65-105)
[2020-10-03] MEDS: DOXAZOSIN MESYLATE 2 MG TABLET PO (21:31)
[2020-10-03 21:32] VITALS: PULSE 79
[2020-10-03] MEDS: ATORVASTATIN 40 MG TABLET PO (21:32)
[2020-10-03 22:00] VITALS: BP 133/73; PULSE 100; RESP 18; TEMP 36.6; O2SAT 98
[2020-10-03 23:35] LABS: Glucose Point of Care 133 mg/dl (65-105)
[2020-10-04] VITALS (7 sets, daily range): BP systolic 142–175; BP diastolic 55–79; PULSE 72–81; RESP 18–24; TEMP 36.1–36.6; O2SAT 95–97
[2020-10-04] MEDS: DEXTROSE 5%/0.45% SOD CHL 1,000 ML 100 ML IV CONT (00:13)
[2020-10-04 06:04] LABS: Hematocrit 28.9 % (37.0-47.0); Hemoglobin 8.6 g/dL (12.0-15.0); Mean Corpuscular HGB Conc 29.8 g/dl (32-36); Mean Corpuscular Hemoglobin 28.7 pg (26-34); Mean Corpuscular Volume 96.3 fl (80-100); Mean Platelet Volume 10.6 fl (7.4-10.4); Platelet Count Result 173 k/mm3 (150-375); Red Cell Distribution Width 14.8 % (11.5-14.5); White Blood Count 5.5 K/mm3 (4.5-10.0)
[2020-10-04 06:12] LABS: Albumin Level 2.3 g/dL (3.5-5.1); Anion Gap 7 mmol/L (8-16); Blood Urea Nitrogen 51 mg/dL (7-17); Calcium 7.5 mg/dL (8.4-10.2); Carbon Dioxide 19 mmol/L (22-30); Chloride 109 mmol/L (98-107); Estimated CRCL calculation 23 ml/min; Estimated Glomerular Filt Rate 16; Glucose 118 mg/dL (65-105); Phosphorus 3.7 mg/dL (2.5-4.5); Potassium 4.3 mmol/L (3.4-5.0); Sodium 135 mmol/L (137-145)
[2020-10-04] MEDS: LEVOTHYROXINE SODIUM 25 MCG TABLET PO (06:12)
[2020-10-04 06:16] LABS: Glucose Point of Care 113 mg/dl (65-105)
--- NOTE | 2020-10-04 09:04 | PM.IMPN ---
Progress Note: A&P Assessment and Plan (1) Hypoglycemia: Code(s): E16.2 - Hypoglycemia, unspecified Status: Acute Assessment and Plan: 10/02/20 14:22 patient is 64-year-old female with history of diabetes status post right [id number] amputation patient was in rehab and was just discharged to further rehab at the [facility], however early this morning patient was found unresponsive EMS was called and upon arrival, EMS found patient blood sugar was 30 patient was started on D10 and brought emergency department for further evaluation, in emergency depart patient was feeling better and fully awake, patient stated since in the correction patient has several bouts of profuse watery diarrhea, denies any blood mucus or foul smell, patient was not discharged on any antibiotics from the rehab to [facility], currently patient is feeling much better other than complains pain in her stump, the wound was seen by wound team and HAIRSPRING II INSPECTOR of Dr. Stapleton and wound appears to be healing well and does not need wound vac. patient is on glimepiride for her diabetes, most likely hypoglycemia secondary to patient may have received hypoglycemic med but may not have eaten, and due to profound diarrhea and poor appetite, will hold patient the medication, will monitor with sliding scale, once clinically stable will reusme glimepiride Hypoglycemia is resolved and altered mental status is resolved (2) Chronic pain of right ankle: Code(s): M25.571 - Pain in right ankle and joints of right foot; G89.29 - Other chronic pain Status: Acute Assessment and Plan: status post amputation the right lower extremity below the knee, patient seen by wounds team as well as orthopedic service. (3) Presence of left artificial hip joint: Code(s): Z96.642 - Presence of left artificial hip joint Status: Acute (4) Pseudarthrosis after fusion or arthrodesis: Code(s): M96.0 - Pseudarthrosis after fusion or arthrodesis Status: Acute (5) Diarrhea: Code(s): R19.7 - Diarrhea, unspecified Status: Acute Assessment and Plan: improving C diff pending (6) Dehydration: Code(s): E86.0 - Dehydration Status: Acute Assessment and Plan: resolved. IV fluids (7) Right below-knee amputee: Onset Date: 06/24/21 Code(s): Z89.511 - Acquired absence of right leg below knee Status: Acute (8) Chronic kidney disease (CKD) stage G4/A1, severely decreased glomerular filtration rate (GFR) between 15-29 mL/min/1.73 square meter and albuminuria creatinine ratio less than 30 mg/g: Code(s): N18.4 - Chronic kidney disease, stage 4 (severe) Status: Acute Assessment and Plan: creatinine around 3 last month about baseline. In 2020 creatinine ranging around 1.5 will continue to monitor here. Slowly improved continue to monitor as outpatient basis (9) Type 2 diabetes mellitus: Qualifiers: Diabetes mellitus mcfp insulin use: without termite technician use Diabetes mellitus complication status: with kidney complications Diabetes mellitus complication detail: with chronic kidney disease Chronic kidney disease stage: stage 4 (severe) Qualified Code(s): E11.22 - Type 2 diabetes mellitus with diabetic chronic kidney disease; N18.4 - Chronic kidney disease, stage 4 (severe) Code(s): E11.9 - Type 2 diabetes mellitus without complications Status: Acute Assessment and Plan: A1c is 4.7. Stop glipizide (10) Hypertension: Qualifiers: Hypertension type: essential hypertension Qualified Code(s): I10 - Essential (primary) hypertension Code(s): I10 - Essential (primary) hypertension Status: Acute (11) Hypothyroidism: Qualifiers: Hypothyroidism type: acquired Qualified Code(s): E03.9 - Hypothyroidism, unspecified Code(s): E03.9 - Hypothyroidism, unspecified Status: Acute (12) Morbid o
[2020-10-04] MEDS: ASPIRIN 81 MG ENTERIC TABLET PO (09:48)
[2020-10-04] MEDS: FERROUS SULFATE 324 MG TABLET PO (09:48)
[2020-10-04] MEDS: cloNIDine HCL 0.1 MG TABLET PO ×2 (09:49→20:51)
[2020-10-04] MEDS: METOPROLOL TARTRATE 50 MG TAB 100 MG PO ×2 (09:49→20:51)
[2020-10-04] MEDS: VERAPAMIL HCL ER 240 MG TABLET.ER PO (09:51)
[2020-10-04] MEDS: hydrALAZINE HCL 50 MG TABLET 100 MG PO ×3 (09:51→17:38)
[2020-10-04] MEDS: LORATADINE 10 MG TABLET PO (09:51)
[2020-10-04] MEDS: VANCOMYCIN ORAL 125 MG/2.5 ML SYRUP PO ×3 (12:33→23:12)
[2020-10-04 12:41] LABS: Glucose Point of Care 132 mg/dl (65-105)
--- NOTE | 2020-10-04 15:36 | PM.PNORT ---
Progress Note: A&P Assessment and Plan (1) Right below-knee amputee: Onset Date: 09/28/20 Code(s): Z89.511 - Acquired absence of right leg below knee Status: Acute Assessment and Plan: Postop day 6 right below-knee amputation. Patient readmitted for hypoglycemia and diarrhea. Superficial skin blistering at the stump site. Diet supplement increased protein. Daily dressing changes with Xeroform. May be up to chair. Nonweightbearing right leg. Pain appears to be controlled. [facility] when medically stable-= Possibly tomorrow. C diff assay positive. Discussed with patient. Subjective Subjective Date/Time Seen: 10/04/20 15:36 Post Op day: Six Principal diagnosis: right below-knee amputation Interval history: patient feels better today. There is little more drainage on the dressing. She has been diagnosed with C diff. Therapy just completed. Exam Const: General: cooperative, healthy appearing, no acute distress, well developed and alert; No confusion Orientation/consciousness: No confusion HENMT: Head: normal to inspection, normocephalic and atraumatic Eyes: Conjunctivae: conjunctivae normal Sclera: sclerae normal Neck: Neck: supple and nontender Chest: Chest palpation & inspection: normal inspection of the chest Resp: Effort & Inspection: normal respiratory effort and no audible wheezes Cardio: Rate: regular rate Rhythm: regular rhythm GI: GI Palp: No Tenderness to palpation present (GI) and No Guarding due to palpation present (GI) : General: Yes deferred Urinary Catheter: Urinary Catheter: patent and draining and urine clear Skin: General skin exam: no rashes or lesions noted Neuro: General: No gait normal and No confusion Cognition (Neuro): normal cognition Extrem: General: capillary refill normal Right lower extremity: hip/thigh Details: normal to inspection, knee Details: normal to inspection; no tenderness and lower leg (Below-knee amputation.) Details: other (Tissue and muscles soft. Able to extend knee) Left lower extremity: hip/thigh Details: normal to inspection, knee Details: abnormal ROM ( range of motion deferred secondary to fracture), ankle (no calf tenderness) Details: normal to inspection, normal ROM ( ankle dorsiflexion 5?, plantar flexion 45, inversion 20, eversion 10) and other ( good capillary refill in toes, 2+ DP pulse, light touch sensation intact); no tenderness ( lateral malleolus, anterior ankle and medial ankle) and no swelling ( moderate anterior ankle, moderate lateral ankle) and foot Details: normal capillary refill, toes with normal ROM, vascular exam Details: dorsalis pedis pulse present and normal capillary refill, tendon exam active flexion normal and active extension normal and motor-sensory exam two point discrimination normal and light-touch normal; no tenderness Other: Incision well approximated. Large serous filled blisters on the more plantar aspect of the stump with some ecchymotic discoloration at the base of the stump. No redness/warmth. Mild swelling. No malodor. Blister drained at bedside today. No purulence, erythema or warmth. Psych: Affect: normal affect Objective Data Vital Signs Vital Signs: Vital Signs - 24 hr 10/03/20 21:32 10/03/20 22:00 10/04/20 06:00 Temperature 97.8 F 97.8 F Pulse Rate 79 100 75 Respiratory Rate 18 24 H Blood Pressure 133/73 175/77 H Pulse Oximetry 98 95 10/04/20 09:49 10/04/20 09:52 10/04/20 14:00 Temperature 97.0 F L Pulse Rate 81 81 72 Respiratory Rate 18 Blood Pressure 160/55 H 142/67 H Pulse Oximetry 97 Intake/Output Intake/Output: Intake & Output 10/01/20 10/02/20 10/03/20 10/04/20 23:59 23:59 23:59 23:59 Intake Total 1560 2530 2058 Output Total 600 1375 900 Balance 960 1155 1158 Meds/Results Medications: Active Medications Generic Name Dose Route Start Last Admin Trade Name Freq PRN Reason Stop Dose Admin Acetamino
[2020-10-04 17:59] LABS: Glucose Point of Care 133 mg/dl (65-105)
[2020-10-04] MEDS: DOXAZOSIN MESYLATE 2 MG TABLET PO (20:51)
[2020-10-04] MEDS: ATORVASTATIN 40 MG TABLET PO (20:51)
[2020-10-04 23:17] LABS: Glucose Point of Care 130 mg/dl (65-105)
[2020-10-05] VITALS (10 sets, daily range): BP systolic 134–173; BP diastolic 59–77; PULSE 70–83; RESP 16–20; TEMP 36.1–36.4; O2SAT 95–98
[2020-10-05] MEDS: LEVOTHYROXINE SODIUM 25 MCG TABLET PO (06:05)
[2020-10-05] MEDS: VANCOMYCIN ORAL 125 MG/2.5 ML SYRUP PO ×4 (06:05→23:21)
[2020-10-05 06:21] LABS: Glucose Point of Care 100 mg/dl (65-105)
[2020-10-05 06:23] LABS: Hematocrit 30.6 % (37.0-47.0); Hemoglobin 9.2 g/dL (12.0-15.0); Mean Corpuscular HGB Conc 30.1 g/dl (32-36); Mean Corpuscular Hemoglobin 28.8 pg (26-34); Mean Corpuscular Volume 95.9 fl (80-100); Mean Platelet Volume 10.2 fl (7.4-10.4); Platelet Count Result 177 k/mm3 (150-375); Red Blood Count 3.19 M/mm3 (4.2-5.4); Red Cell Distribution Width 14.5 % (11.5-14.5); White Blood Count 5.1 K/mm3 (4.5-10.0)
[2020-10-05 06:29] LABS: Albumin Level 2.5 g/dL (3.5-5.1); Anion Gap 5 mmol/L (8-16); Blood Urea Nitrogen 48 mg/dL (7-17); Calcium 7.7 mg/dL (8.4-10.2); Carbon Dioxide 20 mmol/L (22-30); Chloride 111 mmol/L (98-107); Estimated CRCL calculation 23 ml/min; Estimated Glomerular Filt Rate 16; Glucose 101 mg/dL (65-105); Potassium 4.4 mmol/L (3.4-5.0); Sodium 136 mmol/L (137-145)
[2020-10-05] MEDS: ALBUTEROL SULFATE NEB 2.5 MG/3 ML INH INHALATION (08:48)
[2020-10-05] MEDS: ASPIRIN 81 MG ENTERIC TABLET PO (09:07)
[2020-10-05] MEDS: hydrALAZINE HCL 50 MG TABLET 100 MG PO ×3 (09:07→18:06)
[2020-10-05] MEDS: cloNIDine HCL 0.1 MG TABLET PO ×2 (09:07→20:29)
[2020-10-05] MEDS: FERROUS SULFATE 324 MG TABLET PO (09:07)
[2020-10-05] MEDS: VERAPAMIL HCL ER 240 MG TABLET.ER PO (09:08)
[2020-10-05] MEDS: METOPROLOL TARTRATE 50 MG TAB 100 MG PO ×2 (09:08→20:29)
[2020-10-05] MEDS: LORATADINE 10 MG TABLET PO (09:08)
--- NOTE | 2020-10-05 09:58 | PM.PNORT ---
Progress Note: A&P Assessment and Plan (1) Right below-knee amputee: Onset Date: 09/28/20 Code(s): Z89.511 - Acquired absence of right leg below knee Status: Acute (2) Hematoma of amputation stump of right lower extremity: Code(s): T87.89 - Other complications of amputation stump Status: Acute Assessment and Plan: increased swelling right below-knee amputation stump with displacement of dressing causing increased pressure at the knee. Patient states dressing may have displaced with transfers and positioning in bed. Hematoma able to be expressed from the wound. Middle emy removed. Plan to initiate wound VAC to assist with decompression, drainage and continued control of swelling and fluid. Hypoalbuminemia contributing to problem. Currently on supplement replacement. DVT prophylaxis with medicine contraindicated secondary to postoperative hematoma. Patient may continue on aspirin for anti-platelet therapy. Continue nonweightbearing right lower extremity. PT /OT. Plan for wound VAC today with re-evaluation tomorrow morning. May be able to transfer back to rehab tomorrow if stable. Will need wound VAC at rehab. Subjective Subjective Date/Time Seen: 10/05/20 09:58 Post Op day: 7 Principal diagnosis: Right below-knee amputation Interval history: patient awake and alert. Complaints of increased pain right amputation stump. Exam Const: General: cooperative, healthy appearing, no acute distress, well developed and alert; No confusion Orientation/consciousness: No confusion HENMT: Head: normal to inspection, normocephalic and atraumatic Eyes: Conjunctivae: conjunctivae normal Sclera: sclerae normal Neck: Neck: supple and nontender Chest: Chest palpation & inspection: normal inspection of the chest Resp: Effort & Inspection: normal respiratory effort and no audible wheezes Cardio: Rate: regular rate Rhythm: regular rhythm GI: GI Palp: No Tenderness to palpation present (GI) and No Guarding due to palpation present (GI) : General: Yes deferred Urinary Catheter: Urinary Catheter: patent and draining and urine clear Skin: General skin exam: no rashes or lesions noted Neuro: General: No gait normal and No confusion Cognition (Neuro): normal cognition Extrem: General: capillary refill normal Right lower extremity: hip/thigh Details: normal to inspection, knee Details: normal to inspection; no tenderness and lower leg (Below-knee amputation.) Details: other (Tissue and muscles soft. Able to extend knee) Left lower extremity: hip/thigh Details: normal to inspection, knee Details: abnormal ROM ( range of motion deferred secondary to fracture), ankle (no calf tenderness) Details: normal to inspection, abnormal ROM Details: with range as follows ( Minimal range of motion ankle and hindfoot secondary to fusion); no pain with active ROM and no pain with passive ROM and other ( good capillary refill in toes, 2+ DP pulse, light touch sensation intact); no tenderness ( lateral malleolus, anterior ankle and medial ankle) and no swelling ( moderate anterior ankle, moderate lateral ankle) and foot Details: normal capillary refill, toes with normal ROM, vascular exam Details: dorsalis pedis pulse present and normal capillary refill, tendon exam active flexion normal and active extension normal and motor-sensory exam two point discrimination normal and light-touch normal; no tenderness Other: Incision well approximated. Large serous filled blisters on the more plantar aspect of the stump with some ecchymotic discoloration at the base of the stump. No redness/warmth. swelling increased. Bogginess noted at the amputation stump. With palpation sanguinous drainage from the middle of the incision line consistent with hematoma. Copious amount of sanguinous fluid able to be expressed. To middle emy removed to be able to wick fluid. Psych: Affect: normal affect Objective Data Vital Signs Vital Sign
[2020-10-05] MEDS: TOLNAFTATE 1% POWDER 45 GM BTL 1 APPLIC TOPICAL ×2 (10:21→20:30)
[2020-10-05 11:57] LABS: Glucose Point of Care 120 mg/dl (65-105)
[2020-10-05 14:57] LABS: Glucose Point of Care 120 mg/dl (65-105)
--- NOTE | 2020-10-05 15:08 | PCPTNOTE ---
Attempted to see patient for PT, however patient declined. Patient reported MD wanted her (R)LE to be elevated and patient was worried about moving (R)LE too much. Suggested activities in bed, patient continued to decline.
--- NOTE | 2020-10-05 15:54 | PM.IMPN ---
Progress Note: A&P Assessment and Plan (1) Hypoglycemia: Code(s): E16.2 - Hypoglycemia, unspecified Status: Acute Assessment and Plan: 10/02/20 14:22 patient is 64-year-old female with history of diabetes status post right jjqgu-[id number] amputation patient was in rehab and was just discharged to further rehab at the [facility], however early this morning patient was found unresponsive EMS was called and upon arrival, EMS found patient blood sugar was 30 patient was started on D10 and brought emergency department for further evaluation, in emergency depart patient was feeling better and fully awake, patient stated since in the snf patient has several bouts of profuse watery diarrhea, denies any blood mucus or foul smell, patient was not discharged on any antibiotics from the rehab to [facility], currently patient is feeling much better other than complains pain in her stump, the wound was seen by wound team and ALUMINUM MOLDER of Dr. Stapleton and wound appears to be healing well and does not need wound vac. patient is on glimepiride for her diabetes, most likely hypoglycemia secondary to patient may have received hypoglycemic med but may not have eaten, and due to profound diarrhea and poor appetite, will hold patient the medication, will monitor with sliding scale, once clinically stable will reusme glimepiride Hypoglycemia is resolved and altered mental status is resolved (2) Chronic pain of right ankle: Code(s): M25.571 - Pain in right ankle and joints of right foot; G89.29 - Other chronic pain Status: Acute Assessment and Plan: status post amputation the right lower extremity below the knee, patient seen by wounds team as well as orthopedic service. Bleeding at this time noted with increased swelling status post bedside evacuation and wound VAC placement okay per ortho to transfer back to rehab tomorrow if stable will need wound VAC at rehab (3) Presence of left artificial hip joint: Code(s): Z96.642 - Presence of left artificial hip joint Status: Acute (4) Pseudarthrosis after fusion or arthrodesis: Code(s): M96.0 - Pseudarthrosis after fusion or arthrodesis Status: Acute (5) Diarrhea: Code(s): R19.7 - Diarrhea, unspecified Status: Acute Assessment and Plan: positive for C diff. Started on vancomycin p.o. (6) Dehydration: Code(s): E86.0 - Dehydration Status: Acute Assessment and Plan: resolved. IV fluids discontinued (7) Right below-knee amputee: Onset Date: 09/28/20 Code(s): Z89.511 - Acquired absence of right leg below knee Status: Acute (8) Chronic kidney disease (CKD) stage G4/A1, severely decreased glomerular filtration rate (GFR) between 15-29 mL/min/1.73 square meter and albuminuria creatinine ratio less than 30 mg/g: Code(s): N18.4 - Chronic kidney disease, stage 4 (severe) Status: Acute Assessment and Plan: creatinine around 3 last month about baseline. In 2020 creatinine ranging around 1.5 will continue to monitor here. Slowly improved continue to monitor as outpatient basis. Needs to follow-up with nephrology as an outpatient basis. He follows up with Dr. Hammonds with [facility] (9) Type 2 diabetes mellitus: Qualifiers: Diabetes mellitus intermission coordinator insulin use: without halfway use Diabetes mellitus complication status: with kidney complications Diabetes mellitus complication detail: with chronic kidney disease Chronic kidney disease stage: stage 4 (severe) Qualified Code(s): E11.22 - Type 2 diabetes mellitus with diabetic chronic kidney disease; N18.4 - Chronic kidney disease, stage 4 (severe) Code(s): E11.9 - Type 2 diabetes mellitus without complications Status: Acute Assessment and Plan: A1c is 4.7. Stop glipizide (10) Hypertension: Qualifiers: Hypertension type: essential hypertension Qualified
[2020-10-05 17:29] LABS: Glucose Point of Care 116 mg/dl (65-105)
[2020-10-05] MEDS: DOXAZOSIN MESYLATE 2 MG TABLET PO (20:29)
[2020-10-05] MEDS: ATORVASTATIN 40 MG TABLET PO (20:29)
[2020-10-05 23:40] LABS: Glucose Point of Care 109 mg/dl (65-105)
[2020-10-06] MEDS: VANCOMYCIN ORAL 125 MG/2.5 ML SYRUP PO ×2 (05:26→13:58)
[2020-10-06] MEDS: LEVOTHYROXINE SODIUM 25 MCG TABLET PO (05:27)
[2020-10-06 05:48] LABS: Hematocrit 29.5 % (37.0-47.0); Mean Corpuscular HGB Conc 30.5 g/dl (32-36); Mean Corpuscular Hemoglobin 29.2 pg (26-34); Mean Corpuscular Volume 95.8 fl (80-100); Mean Platelet Volume 10.1 fl (7.4-10.4); Platelet Count Result 197 k/mm3 (150-375); Red Blood Count 3.08 M/mm3 (4.2-5.4); Red Cell Distribution Width 14.5 % (11.5-14.5)
[2020-10-06 06:00] VITALS: BP 156/88; PULSE 75; RESP 18; TEMP 36.3; O2SAT 97
[2020-10-06 06:00] LABS: Albumin Level 2.4 g/dL (3.5-5.1); Anion Gap 5 mmol/L (8-16); Blood Urea Nitrogen 51 mg/dL (7-17); Calcium 7.7 mg/dL (8.4-10.2); Carbon Dioxide 18 mmol/L (22-30); Chloride 112 mmol/L (98-107); Estimated CRCL calculation 24 ml/min; Estimated Glomerular Filt Rate 17; Glucose 103 mg/dL (65-105); Phosphorus 4.1 mg/dL (2.5-4.5); Potassium 4.6 mmol/L (3.4-5.0); Sodium 135 mmol/L (137-145)
[2020-10-06 08:26] LABS: Glucose Point of Care 97 mg/dl (65-105)
[2020-10-06] MEDS: FERROUS SULFATE 324 MG TABLET PO (08:33)
[2020-10-06] MEDS: hydrALAZINE HCL 50 MG TABLET 100 MG PO ×2 (08:33→13:58)
[2020-10-06] MEDS: ASPIRIN 81 MG ENTERIC TABLET PO (08:33)
[2020-10-06] MEDS: cloNIDine HCL 0.1 MG TABLET PO (08:33)
[2020-10-06 08:34] VITALS: PULSE 96
[2020-10-06] MEDS: LORATADINE 10 MG TABLET PO (08:34)
[2020-10-06] MEDS: METOPROLOL TARTRATE 50 MG TAB 100 MG PO (08:34)
[2020-10-06] MEDS: VERAPAMIL HCL ER 240 MG TABLET.ER PO (08:34)
[2020-10-06] MEDS: TOLNAFTATE 1% POWDER 45 GM BTL 1 APPLIC TOPICAL (08:34)
--- NOTE | 2020-10-06 09:16 | PM.PNORT ---
Progress Note: A&P Assessment and Plan (1) Right below-knee amputee: Onset Date: 09/28/20 Code(s): Z89.511 - Acquired absence of right leg below knee Status: Acute (2) Hematoma of amputation stump of right lower extremity: Code(s): T87.89 - Other complications of amputation stump Status: Acute Assessment and Plan: Postoperative day 8. Right below-knee amputation. Wound VAC started yesterday with improvement in swelling and overall appearance. Plan to continue wound VAC for 1 to 2 weeks. Wound VAC dressing change 2 to 3 times per week. Creatinine mildly improved. Okay to return to care home /rehab from orthopedic standpoint with wound VAC in place. Continue nonweightbearing. Follow up in 2 weeks for staple removal. Subjective Subjective Date/Time Seen: 10/06/20 09:16 Post Op day: 8 Principal diagnosis: Right below-knee amputation Interval history: patient awake and alert. Overall appears better. Minimal complaints of right leg pain. Wound VAC started yesterday. Exam Const: General: cooperative, healthy appearing, no acute distress, well developed and alert; No confusion Orientation/consciousness: No confusion HENMT: Head: normal to inspection, normocephalic and atraumatic Eyes: Conjunctivae: conjunctivae normal Sclera: sclerae normal Neck: Neck: supple and nontender Chest: Chest palpation & inspection: normal inspection of the chest Resp: Effort & Inspection: normal respiratory effort and no audible wheezes Cardio: Rate: regular rate Rhythm: regular rhythm GI: GI Palp: No Tenderness to palpation present (GI) and No Guarding due to palpation present (GI) : General: Yes deferred Urinary Catheter: Urinary Catheter: patent and draining and urine clear Skin: General skin exam: no rashes or lesions noted Neuro: General: No gait normal and No confusion Cognition (Neuro): normal cognition Extrem: General: capillary refill normal Right lower extremity: hip/thigh Details: normal to inspection, knee Details: normal to inspection; no tenderness and lower leg (Below-knee amputation.) Details: other (Tissue and muscles soft. Able to extend knee) Left lower extremity: hip/thigh Details: normal to inspection, knee Details: abnormal ROM ( range of motion deferred secondary to fracture), ankle (no calf tenderness) Details: normal to inspection, abnormal ROM Details: with range as follows ( Minimal range of motion ankle and hindfoot secondary to fusion); no pain with active ROM and no pain with passive ROM and other ( good capillary refill in toes, 2+ DP pulse, light touch sensation intact); no tenderness ( lateral malleolus, anterior ankle and medial ankle) and no swelling ( moderate anterior ankle, moderate lateral ankle) and foot Details: normal capillary refill, toes with normal ROM, vascular exam Details: dorsalis pedis pulse present and normal capillary refill, tendon exam active flexion normal and active extension normal and motor-sensory exam two point discrimination normal and light-touch normal; no tenderness Other: Incision well approximated. Wound VAC in place. 150 cc of drainage in the canister. Minimal swelling of the stump. No erythema. Psych: Affect: normal affect Objective Data Vital Signs Vital Signs: Vital Signs - 24 hr 10/05/20 12:51 10/05/20 13:46 10/05/20 18:07 Temperature 97 F L Pulse Rate 76 83 Respiratory Rate 18 Blood Pressure 162/71 H 155/71 H 147/62 H Pulse Oximetry 98 10/05/20 20:00 10/05/20 20:29 10/06/20 06:00 Temperature 97.6 F 97.3 F L Pulse Rate 81 70 75 Respiratory Rate 18 18 18 Blood Pressure 173/77 H 156/88 H Pulse Oximetry 97 97 97 10/06/20 08:34 Temperature Pulse Rate 96 Respiratory Rate Blood Pressure Pulse Oximetry Intake/Output Intake/Output: Intake & Output 10/03/20 10/04/20 10/05/20 10/06/20 23:59 23:59 23:59 23:59 Intake Total 2530 2558 2800 250 Output Total 1375 1800 1550 800 Balance
--- NOTE | 2020-10-06 12:19 | PM.DS ---
DS: Admitting Diagnosis Admitting Diagnosis Admitting Diagnosis: altered mental state DS: Discharge Diagnosis Discharge Diagnosis (1) Wheezing: Code(s): R06.2 - Wheezing Status: Acute (2) C. difficile colitis: Code(s): A04.72 - Enterocolitis due to Clostridium difficile, not specified as recurrent Status: Acute (3) Hematoma of amputation stump of right lower extremity: Code(s): T87.89 - Other complications of amputation stump Status: Acute (4) Altered mental status: Code(s): R41.82 - Altered mental status, unspecified Status: Acute (5) Anemia: Code(s): D64.9 - Anemia, unspecified Status: Acute (6) Chronic pain of right ankle: Code(s): M25.571 - Pain in right ankle and joints of right foot; G89.29 - Other chronic pain Status: Acute (7) Presence of left artificial hip joint: Code(s): Z96.642 - Presence of left artificial hip joint Status: Acute (8) Diarrhea: Code(s): R19.7 - Diarrhea, unspecified Status: Acute (9) Right below-knee amputee: Onset Date: 09/28/20 Code(s): Z89.511 - Acquired absence of right leg below knee Status: Acute (10) Chronic kidney disease (CKD) stage G4/A1, severely decreased glomerular filtration rate (GFR) between 15-29 mL/min/1.73 square meter and albuminuria creatinine ratio less than 30 mg/g: Code(s): N18.4 - Chronic kidney disease, stage 4 (severe) Status: Acute (11) Type 2 diabetes mellitus: Qualifiers: Diabetes mellitus half-way insulin use: without dedicated intermodal truck driver use Diabetes mellitus complication status: with kidney complications Diabetes mellitus complication detail: with chronic kidney disease Chronic kidney disease stage: stage 4 (severe) Qualified Code(s): E11.22 - Type 2 diabetes mellitus with diabetic chronic kidney disease; N18.4 - Chronic kidney disease, stage 4 (severe) Code(s): E11.9 - Type 2 diabetes mellitus without complications Status: Acute (12) Hypothyroidism: Qualifiers: Hypothyroidism type: acquired Qualified Code(s): E03.9 - Hypothyroidism, unspecified Code(s): E03.9 - Hypothyroidism, unspecified Status: Acute (13) Obesity: Code(s): E66.9 - Obesity, unspecified Status: Acute (14) HTN (hypertension): Code(s): I10 - Essential (primary) hypertension Status: Acute (15) Hypercholesterolemia: Code(s): E78.00 - Pure hypercholesterolemia, unspecified Status: Acute DS: Summary Hospital Course Hospital Course: (1) Hypoglycemia: Code(s): E16.2 - Hypoglycemia, unspecified Status: Acute Assessment and Plan: 10/02/20 14:22 the patient is 64-year-old female with history of diabetes status post right [id number]-[id number] amputation patient was in rehab and was just discharged to further rehab at the [facility], however early this morning patient was found unresponsive EMS was called and upon arrival, EMS found patient blood sugar was 30 patient was started on D10 and brought emergency department for further evaluation, in emergency depart patient was feeling better and fully awake, patient stated since in the [facility]p patient has several bouts of profuse watery diarrhea, denies any blood mucus or foul smell, patient was not discharged on any antibiotics from the rehab to [facility], currently patient is feeling much better other than complains pain in her stump, the wound was seen by wound team and STITCH WELDER of Dr. Stapleton and wound appears to be healing well and does not need wound vac. patient is on glimepiride for her diabetes, most likely hypoglycemia secondary to patient may have received hypoglycemic med but may not have eaten, and due to profound diarrhea and poor appetite, will hold patient the medication, will monitor with sliding scale, once clinically stable will reusme glimepiride Hypoglycemia is resolved and altered men
[2020-10-06 13:40] LABS: Glucose Point of Care 106 mg/dl (65-105)
== END 2020-10-06 14:30 | DRG 638 ==
LOC: ANHED 06:48 → ANH3MED 07:19
PROVIDERS: Family Medicine; Admitting Provider Internal Medicine; Emergency Provider Emergency Medicine; PCP Family Medicine; Visit Provider Internal Medicine
DX: E11.649 Type 2 diabetes mellitus with hypoglycemia without coma (principal); M96.0 Pseudarthrosis after fusion or arthrodesis; Z68.41 Body mass index [BMI] 40.0-44.9, adult; A04.72 Enterocolitis due to Clostridium difficile, not specified as recurrent; E66.01 Morbid (severe) obesity due to excess calories; E11.22 Type 2 diabetes mellitus with diabetic chronic kidney disease; I12.9 Hypertensive chronic kidney disease with stage 1 through stage 4 chronic kidney disease, or unspecified chronic kidney disease; N18.4 Chronic kidney disease, stage 4 (severe); T87.89 Other complications of amputation stump; Z89.511 Acquired absence of right leg below knee; E86.0 Dehydration; R06.2 Wheezing; D64.9 Anemia, unspecified; E03.9 Hypothyroidism, unspecified; E78.00 Pure hypercholesterolemia, unspecified; M17.11 Unilateral primary osteoarthritis, right knee; L40.52 Psoriatic arthritis mutilans; Z96.642 Presence of left artificial hip joint; Z79.82 Long term (current) use of aspirin; Z79.84 Long term (current) use of oral hypoglycemic drugs
CPT/HCPCS: 36415; 51702; 71045; 80053; 80069; 81001; 82948; 83036; 83605; 83735; 85025; 85027; 85610; 85730; 86140; 87040; 87086; 87088; 87324; 93005; 94640; 96361; 96372; 96374; 96375; 97110; 97161; 97166; 97530; 97535; 99285; A9270; G0378; J0360; J1644; J2543; J7030

== ENCOUNTER 2020-10-11 11:13 | Inpatient (IN) | payer MEDICARE, BC, SELFPAY ==
[2020-10-11] VITALS (58 sets, daily range): BP systolic 65–155; BP diastolic 25–88; PULSE 36–90; RESP 8–32; TEMP 33.4–36.8; O2SAT 72–100
--- NOTE | ~2020-10-11 | US_ITS ---
EXAMINATION: US renal BI EXAM DATE: 10/12/2020 10:09 INDICATION: R/O hydronephrosis, acute on chronic kidney injury. TECHNIQUE: Multiple grayscale and Doppler images of the kidneys were obtained (by a technologist who performed the scan) and subsequently reviewed. Correlation is made to CT from 10/11/2020. FINDINGS: Study limited due to patient being intubated, body habitus, poor acoustic window Right kidney: Severely atrophic on CT from yesterday, not identified on this study. Left kidney: There is normal contour and echogenicity, with some renal cortical thinning. It measure s 12.9 x 5.2 x 7.9 centimeters. There is a 2.4 cm cyst identified. This is too small to be one of the indeterminate lesions seen on CT (these were 5 and 6 cm). There is no hydronephrosis. Bladder unremarkable. IMPRESSION: 1. No left hydronephrosis. Severe right renal atrophy. 2. Indeterminate lesions on CT not identified on this study. Consider follow-up nonemergent kidney u ltrasound after patient is extubated, able to position appropriately for nonemergent evaluation of th richar lesions. Reviewed, dictated and finalized at location B. IMPRESSION: 1. No left hydronephrosis. Severe right renal atrophy. 2. Indeterminate lesions on CT not identified on this study. Consider follow-u p nonemergent kidney ultrasound after patient is extubated, able to position ap propriately for nonemergent evaluation of these lesions.
--- NOTE | ~2020-10-11 | CT_ITS ---
EXAMINATION: CT chest abdomen pelvis wo con EXAM DATE: 10/11/2020 14:58 INDICATION: cardiogenic shock. Lethargic. Right leg amputation 09/30. Respiratory failure. TECHNIQUE: Spiral CT of the chest, abdomen and pelvis was performed without contrast. Axial, saha l and sagittal images chest, abdomen and pelvis were reviewed. Coronal maximum intensity pixel image s of chest reviewed. The dose-length product (DLP) for this examination was 1970.71 mGy-cm. The exp osure was tailored according to patient size (auto mA exposure control), and iterative reconstruction (ASIR) was used as additional dose reduction technique. Correlation is made to chest x-ray same date . FINDINGS: CHEST: Endotracheal tube is in position. The feeding tube tip is in the stomach, side-port at the gas troesophageal junction. Could be safely advanced 5 cm. There is a right-sided subclavian venous line. There is cardiomegaly. Pulmonary vascular congestion. Small to moderate right, small left pleural ef fusions. Nearly collapsed right lower lobe. Subsegmental atelectasis in the right upper lobe and left lower lobe. No pneumothorax. Extensive subcutaneous edema along the right lateral aspect of the thor ax and abdomen. Severe left shoulder osteoarthritis. ABDOMEN PELVIS: There is retroperitoneal nonspecific fat stranding, indistinct gallbladder wall. Coul d be reactive, pancreatitis. Can't radiographically exclude cholecystitis. There is severe right santi l atrophy. Lobular exophytic left renal lesion measuring 6 cm along the posterior cortex, and another one contiguous with the anterior cortex measuring 6 cm. These could be hemorrhagic cyst but solid ma ss(es) also possible. No hydronephrosis. A follow-up nonemergent abdomen complete ultrasound recommen [facility] for further evaluation. Small perihepatic ascites. Liver, spleen, adrenal glands are unremarkable. Hysterectomy or atrophic u terus. The bladder is collapsed with [place] catheter balloon anchor inside. There is no retroperiton eal or pelvic lymphadenopathy. There is mild scattered arteriosclerotic disease. There are no findings to suggest appendicitis. The stomach and small bowel are unremarkable. There is expected amount of colonic stool. No free intraperitoneal gas. There are no acute fractures id entified. There is left hip arthroplasty hardware. IMPRESSION: 1. Nasogastric tube could be safely advanced 5 cm. ET tube, right subclavian line, [place] catheter in position. 2. Cardiomegaly, congestion, small to moderate right and small left pleural effusions. Adjacent atel ectasis. 3. Nonspecific peripancreatic, retroperitoneal fat stranding. Pancreatitis or cholecystitis not excl udable. 4. Indeterminate left renal lesions; consider follow-up nonemergent abdomen complete ultrasound when patient is able. Reviewed, dictated and finalized at location B. IMPRESSION: 1. Nasogastric tube could be safely advanced 5 cm. ET tube, right subclavian l ine, [place] catheter in position. 2. Cardiomegaly, congestion, small to moderate right and small left pleural ef fusions. Adjacent atelectasis. 3. Nonspecific peripancreatic, retroperitoneal fat stranding. Pancreatitis or cholecystitis not excludable. 4. Indeterminate left renal lesions; consider follow-up nonemergent abdomen co mplete ultrasound when patient is able.
--- NOTE | ~2020-10-11 | US_ITS ---
EXAMINATION: US renal BI DATE: 11/01/2020 15:14 INDICATION: Elevated creatinine TECHNIQUE: Multiple ultrasound grayscale images of the kidneys were obtained. COMPARISON: Ultrasound dated 10/12/[address] dated 10/11/2020 FINDINGS: The right kidney measures 8.2 x 6.0 x 5.2 with asymmetric severe right renal cortical atrophy. The le ft kidney measures 16.0 x 6.7 x 8.2 inclusive of an exophytic 5.1 cm anechoic cyst at the upper pole of the left kidney. There are few additional smaller anechoic cysts in both kidneys. The kidneys demo nstrate normal echogenicity. There is no hydronephrosis in either kidney. No stones identified. The bladder is suboptimally visualized but appears unremarkable.. IMPRESSION: 1. Severe right renal atrophy. 2. Bilateral renal cysts. No hydronephrosis. Reviewed, dictated and finalized at location A.
--- NOTE | ~2020-10-11 | XR_ITS ---
XR chest 1V portable DATE: 10/12/2020 05:47 INDICATION: Pleural effusion TECHNIQUE: Portable supine AP chest on 10/12/2020 at 0541 hours COMPARISON: 10/11/2020 portable AP chest at 1528 hours FINDINGS: ET tube in satisfactory position 3.3 cm above jenny. NG tube noted passing into the stomac h. Right internal jugular central venous catheter tip is not definitively localized, likely in the ri ght brachiocephalic vein or very proximal superior vena cava. No pneumothorax. Cardiomegaly. There is prominence of minor fissure which may indicate subpleural edema. Probable righ t mild pleural effusion. There are patchy bilateral central and lower lung zone infiltrates which may be due to pulmonary edema versus pneumonia and/or atelectasis. IMPRESSION: Cardiomegaly Bilateral central and lower lung zone infiltrates which may be due to edema, pneumonia and/or atelect asis. Pelvis the minor fissure and mild right pleural effusion suggest congestive change. Reviewed, dictated and finalized at location A. IMPRESSION: Cardiomegaly Bilateral central and lower lung zone infiltrates which may be due to edema, pn eumonia and/or atelectasis. Pelvis the minor fissure and mild right pleural eff usion suggest congestive change.
--- NOTE | ~2020-10-11 | XR_ITS ---
XR chest 1V portable 10/31/2020 05:52 Indication: Acute hypercapnic respiratory failure Procedure: AP portable chest Comparison: Comparison to multiple prior studies sequentially, with oldest reviewed study dated 10/15. Findings: Cardiomegaly with interstitial edema. Small pleural effusions. No pneumothorax. No acute os seous abnormality. Impression: 1: Cardiomegaly with interstitial edema. 2: Small pleural effusions. Reviewed, dictated and finalized at location A. Impression: 1: Cardiomegaly with interstitial edema. 2: Small pleural effusions.
--- NOTE | ~2020-10-11 | XR_ITS ---
XR chest 1V portable DATE: 10/13/2020 05:36 INDICATION: Acute respiratory failure TECHNIQUE: Portable AP chest on 10/23/2020 at 0520 hours COMPARISON: 10/12/2020 portable AP chest at 0541 hours 10/11/2020 CT chest abdomen pelvis FINDINGS: Right lower lung infiltrate and/atelectasis with rightward shift of heart and mediastinum. There is patchy infiltrate or atelectasis in the left lower lung. ET tube in satisfactory position 3.4 cm above jenny. NG tube in stomach. Right internal jugular cent ral venous catheter tip overlies the superior vena cava. No pneumothorax. Severe bilateral glenohumeral osteoarthritis bilateral probable chronic rotator cuff atrophy. IMPRESSION: Right lower lung infiltrate and/atelectasis, with rightward shift of heart and mediastinu m Patchy infiltrate in the left lower lung ET and NG tubes in satisfactory position Right internal jugular central venous catheter in superior vena cava Reviewed, dictated and finalized at location A. IMPRESSION: Right lower lung infiltrate and/atelectasis, with rightward shift o f heart and mediastinum Patchy infiltrate in the left lower lung ET and NG tubes in satisfactory position Right internal jugular central venous catheter in superior vena cava
--- NOTE | ~2020-10-11 | XR_ITS ---
EXAMINATION: XR abdomen NG/feed tube insert EXAM DATE: 10/29/2020 13:35 INDICATION: Nasogastric tube placement. TECHNIQUE: Frontal projection(s) of the abdomen for interpretation. Comparison is made to prior exami nation from 10/11/2020. FINDINGS: Feeding tube tip and side-port project over upper abdomen, expected position. Nonobstructiv e upper abdominal bowel gas pattern. Evidence of bibasilar airspace disease and pleural effusion. IMPRESSION: 1. Feeding tube in position. Reviewed, dictated and finalized at location A.
--- NOTE | ~2020-10-11 | XR_ITS ---
EXAMINATION: XR chest 1V portable DATE: 11/05/2020 05:52 INDICATION: Shortness of breath TECHNIQUE: frontal view of the chest was obtained. COMPARISON: Chest radiograph dated 11/04/2020 FINDINGS: Gradient of basilar predominant hazy airspace opacities in the bilateral mid and lower lung zones. No pneumothorax. Cardiomegaly. Calcified bilateral hilar and mediastinal lymph nodes consistent with ol d granulomatous disease. IMPRESSION: 1. No significant change in small to moderate bilateral posterior layering pleural effusions with ass ociated bibasilar atelectasis and/or pneumonia. 2. Cardiomegaly. Reviewed, dictated and finalized at location A. IMPRESSION: 1. No significant change in small to moderate bilateral posterior layering pleu ral effusions with associated bibasilar atelectasis and/or pneumonia. 2. Cardiomegaly.
--- NOTE | ~2020-10-11 | XR_ITS ---
EXAMINATION: XR knee RT 3V DATE: 10/11/2020 15:31 INDICATION: Right lower limb wound. TECHNIQUE: 3 views of right knee were obtained. COMPARISON: None. FINDINGS: There are changes of below-knee amputation. The tibial stump demonstrates a sharp margin. T here is irregularity of the bone margin of the fibular stump. Skin emy are noted. The knee demons trates severe osteoarthritis of patellofemoral compartment and mild osteoarthritis of medial and late ral compartments. There is chondrocalcinosis of the menisci. There is a large knee joint effusion wit h loose bodies. IMPRESSION: 1. Irregularity of the bone margin of the fibular stump, which is indeterminate for osteomyelitis. 2. Severe right knee osteoarthritis. 3. Large knee joint effusion with loose bodies. Reviewed, dictated and finalized at location A.
--- NOTE | ~2020-10-11 | XR_ITS ---
EXAMINATION: XR chest 1V portable DATE: 10/11/2020 12:42 INDICATION: Altered mental status. TECHNIQUE: A single frontal view of the chest was obtained on 2 radiographs. COMPARISON: Chest single view 10/05/2020 FINDINGS: The patient is rotated to his right. Sensitivity is decreased by obesity. There are mild ai rspace opacities in the lower lung zones. No pleural effusion or pneumothorax. Cardiomegaly is noted. Calcified left hilar lymph nodes are consistent with old granulomatous disease. IMPRESSION: 1. Mild airspace opacities in the lower lung zones, consistent with atelectasis versus pneumonia. 2. Cardiomegaly. Reviewed, dictated and finalized at location A.
--- NOTE | ~2020-10-11 | XR_ITS ---
EXAMINATION: XR chest 1V portable DATE: 10/15/2020 05:26 INDICATION: Acute respiratory failure. TECHNIQUE: A single frontal view of the chest was obtained. COMPARISON: Chest single view 10/14/2020 FINDINGS: The patient is rotated to her right. A calcified left lung nodule and calcified left hilar lymph nodes are consistent with old granulomatous disease. There is a moderate-sized right pleural ef fusion. There are airspace opacities in right mid and lower lung zones. No pneumothorax or cardiomega ly is noted. A right internal jugular central venous catheter is seen with tip in the superior vena c noel. IMPRESSION: 1. Stable moderate-sized right pleural effusion. 2. Stable airspace opacities in right mid and lower lung zones, consistent with atelectasis versus pn eumonia. 3. Cardiomegaly. Reviewed, dictated and finalized at location A. IMPRESSION: 1. Stable moderate-sized right pleural effusion. 2. Stable airspace opacities in right mid and lower lung zones, consistent with atelectasis versus pneumonia. 3. Cardiomegaly.
--- NOTE | ~2020-10-11 | XR_ITS ---
XR fl guide central line place DATE: 11/10/2020 12:34 INDICATION: Insertion of tunneled dialysis catheter TECHNIQUE: Single spot C-arm exposure of the right upper chest 19.0 seconds fluoroscopy time [id number] [id number] COMPARISON: 11/05/2020 portable AP chest FINDINGS: Right dialysis catheter overlies the right internal jugular vein and superior vena cava. No pneumothorax is evident. IMPRESSION: Right internal jugular dialysis catheter placement Reviewed, dictated and finalized at Location A. Reviewed, dictated and finalized at location B.
--- NOTE | ~2020-10-11 | US_ITS ---
EXAMINATION: US renal BI DATE: 11/06/2020 12:51 INDICATION: Decreased urine output TECHNIQUE: Multiple ultrasound grayscale images of the kidneys were obtained. COMPARISON: 11/01/2020 FINDINGS: The right kidney measures 9.9 x 6.9 x 5.3 cm. The left kidney measures 12.2 x 6.9 x 7.0 exclusive of a cyst at the upper pole. Inclusive of the cyst the left renal length measures 16.3 cm. The kidneys d emonstrate normal echogenicity. There is severe right renal cortical atrophy. Multiple bilateral anec hoic renal cysts, the largest measuring up to 3.3 cm in the right kidney and 5.1 cm the left kidney. There is no hydronephrosis in either kidney. No stones identified. The bladder is decompressed aroun d a [place] catheter which limits evaluation.. IMPRESSION: 1. Severe right renal atrophy. 2. Bilateral renal cysts. No hydronephrosis. Reviewed, dictated and finalized at location A.
--- NOTE | ~2020-10-11 | XR_ITS ---
EXAMINATION: XR abdomen NG/feed tube insert DATE: 10/11/2020 15:31 INDICATION: Nasogastric tube placement. TECHNIQUE: A supine view of the abdomen was obtained. COMPARISON: CT 10/11/2020 FINDINGS: The lower abdomen and lateral aspects of the abdomen are excluded. The nasogastric tube tip is in the stomach. IMPRESSION: 1. Nasogastric tube tip in the stomach. Reviewed, dictated and finalized at location A.
--- NOTE | ~2020-10-11 | XR_ITS ---
XR chest 1V portable 11/01/2020 05:57 Indication: Acute hypercapnic respiratory failure Procedure: AP portable chest Comparison: Comparison to multiple prior studies sequentially, with oldest reviewed study dated 10/16. Findings: Cardiomegaly. Bilateral pleural effusions. Bibasilar airspace disease may represent atelect asis or pneumonia. Stable mediastinal contour. Impression: 1: Bibasilar airspace disease, atelectasis versus pneumonia. 2: Small pleural effusions. 3: Cardiomegaly. Reviewed, dictated and finalized at location A. Impression: 1: Bibasilar airspace disease, atelectasis versus pneumonia. 2: Small pleural effusions. 3: Cardiomegaly.
--- NOTE | ~2020-10-11 | XR_ITS ---
EXAMINATION: XR abdomen/kub 1V DATE: 11/05/2020 13:42 INDICATION: Nausea and stomach pain TECHNIQUE: A supine view of the abdomen on 2 radiographs was obtained. COMPARISON: 10/29/2020 FINDINGS: Moderate amount of stool in the proximal colon and small to moderate amount of gas scattered througho ut the mid to distal colon. No dilated loops of gas-filled small bowel to suggest obstruction. Cardio megaly. Opacities at the bilateral lower lung zones, right greater than left, unchanged since earlier chest radiograph at 5:30 AM. Mild lumbar levo scoliosis with severe spondylosis. Partially visualize d left total hip arthroplasty. IMPRESSION: 1. No dilated loops of gas-filled bowel to suggest obstruction. 2. Small to moderate right and small left pleural effusions with associated basilar atelectasis and/o r pneumonia. 3. Cardiomegaly. Reviewed, dictated and finalized at location A. IMPRESSION: 1. No dilated loops of gas-filled bowel to suggest obstruction. 2. Small to moderate right and small left pleural effusions with associated bas ilar atelectasis and/or pneumonia. 3. Cardiomegaly.
--- NOTE | ~2020-10-11 | CT_ITS ---
EXAMINATION: CT brain wo [facility] EXAM DATE: 10/29/2020 16:00 INDICATION: Acute encephalopathy, r/o stroke . TECHNIQUE: Spiral CT of the head was performed without contrast. Axial, coronal and sagittal images were reviewed. The dose-length product (DLP) for this examination was 681.00 mGy-cm. The exposure w as tailored according to patient size, and iterative reconstruction (ASIR) was used as additional dos e reduction technique. Comparison is made to prior examination from 10/11/2020. FINDINGS: There is no acute intraparenchymal hemorrhage. No evidence of intraparenchymal brain mass lesion. No evidence of acute infarction. Please note that initial head CT has limited sensitivity f or small or acute infarctions. There is mild periventricular and subcortical hypodensity, nonspecific but probably related to small vessel ischemic disease. There is mild prominence of the sulci and v entricles related to cerebral atrophy. There is intracranial carotid arteriosclerosis. There are n o extra-axial collections. There is no mass effect or midline shift. The orbits are unremarkable. Soft tissue is unremarkable. The visualized sinuses and mastoid air cells are well aerated. IMPRESSION: 1. No acute intracranial findings. 2. Chronic age related findings. Reviewed, dictated and finalized at location A.
--- NOTE | ~2020-10-11 | XR_ITS ---
XR chest port-a-cath/central DATE: 11/10/2020 13:37 INDICATION: Insertion tunneled dialysis catheter TECHNIQUE: Portable AP chest on 11/10/2020 at 1334 hours COMPARISON: 11/05/2020 portable AP chest FINDINGS: Interval placement of right internal jugular dialysis catheter, distal tip overlying superi or cavoatrial junction approximately. Cardiomegaly, pulmonary vascular congestion, mild right pleural effusion. Bilateral infiltrates and/a telectasis. Mildly improved since 11/05/2020. IMPRESSION: Interval right internal jugular dialysis catheter placement Mild improvement of congestive changes and bilateral infiltrates since 11/05/2020 Reviewed, dictated and finalized at Location A. Reviewed, dictated and finalized at location B.
--- NOTE | ~2020-10-11 | XR_ITS ---
EXAMINATION: XR chest 1V portable DATE: 10/14/2020 05:36 INDICATION: Acute respiratory failure. TECHNIQUE: A single frontal view of the chest was obtained. COMPARISON: Chest single view 10/13/2020, chest CT 10/11/2020 FINDINGS: The patient is rotated to her right. There are moderate-sized right and small left pleural effusions. There are airspace opacities in right mid and lower lung zones and left lower lung zone. A calcified left lung nodule and calcified left hilar lymph nodes are consistent with old granulomatou s disease. No pneumothorax. Cardiomegaly is noted. The endotracheal tube tip is 1.8 cm above the hernandez na. The nasogastric tube tip is beyond the inferior margin of the radiograph, but at least to the sto mach. A right internal jugular central venous catheter is seen with tip in the superior vena cava. IMPRESSION: 1. Stable moderate-sized right and small left pleural effusions. 2. Airspace opacities in right mid and lower lung zones and left lower lung zone with improvement on the right, consistent with atelectasis versus pneumonia. 3. Cardiomegaly. Reviewed, dictated and finalized at location A. IMPRESSION: 1. Stable moderate-sized right and small left pleural effusions. 2. Airspace opacities in right mid and lower lung zones and left lower lung zon e with improvement on the right, consistent with atelectasis versus pneumonia. 3. Cardiomegaly.
--- NOTE | ~2020-10-11 | CT_ITS ---
EXAMINATION: CT brain wo con DATE: 10/11/2020 14:58 INDICATION: Altered mental status TECHNIQUE: Computed tomography (CT) of the head was performed without intravenous contrast. The dose- length product was 681.00 mGy-cm.. Automated exposure control and iterative reconstruction technique were employed. COMPARISON: No prior studies for comparison. FINDINGS: No acute intracranial hemorrhage, infarction, mass or mass effect. No ventriculomegaly or m idline shift. Basilar cisterns are patent. Paranasal sinuses and mastoids are pneumatized. There are scattered mild periventricular and subcortical white matter changes, most likely related to small ves abelardo ischemic disease (microangiopathy). IMPRESSION: 1. No acute intracranial abnormality. Reviewed, dictated and finalized at location A.
--- NOTE | ~2020-10-11 | XR_ITS ---
XR chest 1V portable 10/30/2020 05:45 Indication: Acute hypercapnic respiratory failure Procedure: AP portable chest Comparison: Comparison to multiple prior studies sequentially, with oldest reviewed study dated 10/14. Findings: The endotracheal tube 2.6 cm above the jenny. Moderate cardiomegaly. Mild interstitial ximena ma. Small pleural effusions. No pneumothorax. Impression: 1: Cardiomegaly with interstitial edema. 2: Small pleural effusions. Reviewed, dictated and finalized at location A. Impression: 1: Cardiomegaly with interstitial edema. 2: Small pleural effusions.
--- NOTE | ~2020-10-11 | XR_ITS ---
EXAMINATION: XR chest ET placement EXAM DATE: 10/29/2020 13:35 INDICATION: After intubation to confirm ET placement . TECHNIQUE: Portable AP frontal chest x-ray was obtained. There is no prior study for comparison. FINDINGS: Endotracheal tube with tip in the right mainstem bronchus. Both lungs are being aerated at present. This should be retracted 2-3 cm. Reportedly this was reviewed by Tanya Fleming MD at t tray of exam and tube was retracted according to technologist who obtained image and was present. There is a nasogastric tube seen with tip collimated off the study, but below the left hemidiaphragm. There are layering pleural effusions with adjacent segmental or multisegmental atelectasis. Possible superimposed pneumonia and/or edema. Cardiac silhouette is enlarged but stable in size compared to p rior exam. There is no pneumothorax suspected. There are bony degenerative changes. IMPRESSION: 1. Endotracheal tube in right mainstem, reportedly this was retracted immediately after this image. 2. Layering pleural effusions, adjacent atelectasis. 3. Possible superimposed edema and/or pneumonia. 4. Cardiomegaly. Reviewed, dictated and finalized at location A. IMPRESSION: 1. Endotracheal tube in right mainstem, reportedly this was retracted immediat ingrid after this image. 2. Layering pleural effusions, adjacent atelectasis. 3. Possible superimposed edema and/or pneumonia. 4. Cardiomegaly.
--- NOTE | ~2020-10-11 | XR_ITS ---
EXAMINATION: XR chest port-a-cath/central DATE: 10/11/2020 13:06 INDICATION: Central line placement. TECHNIQUE: A single frontal view of the chest was obtained. COMPARISON: Chest single view at 12:33 PM FINDINGS: The patient is rotated to her right. There are mild airspace opacities in the perihilar reg ions. No pleural effusion or pneumothorax or cardiomegaly is noted. Calcified left hilar lymph nodes are consistent with old granulomatous disease. A right internal jugular central venous catheter is se en with tip in the superior vena cava. IMPRESSION: 1. Central line tip in superior vena cava. 2. Mild airspace opacities in the perihilar regions, consistent with atelectasis versus pneumonia kyle nagi mild pulmonary edema. 3. Cardiomegaly. Reviewed, dictated and finalized at location A. IMPRESSION: 1. Central line tip in superior vena cava. 2. Mild airspace opacities in the perihilar regions, consistent with atelectasi s versus pneumonia versus mild pulmonary edema. 3. Cardiomegaly.
--- NOTE | ~2020-10-11 | XR_ITS ---
EXAMINATION: XR chest 1V portable DATE: 11/04/2020 11:10 INDICATION: Shortness of breath TECHNIQUE: frontal view of the chest was obtained. COMPARISON: Chest radiograph dated 11/01/2020 FINDINGS: Gradient of basilar predominant hazy opacities in the bilateral mid and lower lung zones likely repre senting small to moderate-sized lateral posterior layering pleural effusions with basilar atelectasis versus pneumonia. No pneumothorax. Calcified bilateral hilar and mediastinal lymph nodes consistent with old granulomatous disease. Cardiomegaly. Right rotator cuff arthropathy and severe left glenohum eral osteoarthritis. IMPRESSION: 1. Increasing small to moderate-sized posterior layering bilateral pleural effusions with associated bibasilar atelectasis and/or pneumonia. 2. Cardiomegaly. Reviewed, dictated and finalized at location A. IMPRESSION: 1. Increasing small to moderate-sized posterior layering bilateral pleural effu sions with associated bibasilar atelectasis and/or pneumonia. 2. Cardiomegaly.
--- NOTE | ~2020-10-11 | XR_ITS ---
EXAMINATION: XR chest ET placement DATE: 10/11/2020 15:31 INDICATION: Intubation. TECHNIQUE: A single frontal view of the chest was obtained. COMPARISON: Chest single view at 1:06 PM, chest CT 10/11/2020 FINDINGS: Sensitivity is decreased by obesity. The patient is rotated to her right. There are airspac e opacities in the perihilar regions and at right lung base. A calcified left lung nodule and calcifi ed left hilar lymph nodes are consistent with old granulomatous disease. There is a small right pleur al effusion. No pneumothorax. Cardiomegaly is noted. The endotracheal tube tip is 3.3 cm above the ca chidi. A right internal jugular central venous catheter is seen with tip in the superior vena cava. IMPRESSION: 1. Airspace opacities in the perihilar regions and at right lung base, likely atelectasis. 2. Small right pleural effusion. 3. Cardiomegaly. Reviewed, dictated and finalized at location A. IMPRESSION: 1. Airspace opacities in the perihilar regions and at right lung base, likely a telectasis. 2. Small right pleural effusion. 3. Cardiomegaly.
--- NOTE | ~2020-10-11 | XR_ITS ---
EXAMINATION: XR chest 1V portable DATE: 10/16/2020 05:47 INDICATION: Acute respiratory failure. TECHNIQUE: A single frontal view of the chest was obtained. COMPARISON: Chest single view 10/15/2020 FINDINGS: The patient is rotated to her right. There is a moderate-sized right pleural effusion. Ther e are airspace opacities in right mid and lower lung zones. A calcified left lung nodule and calcifie d left hilar lymph nodes are consistent with old granulomatous disease. No pneumothorax. Cardiomegaly is noted. IMPRESSION: 1. Stable moderate-sized right pleural effusion. 2. Stable airspace opacities in right mid and lower lung zones, consistent with atelectasis versus pn eumonia. 3. Cardiomegaly. Reviewed, dictated and finalized at location A. IMPRESSION: 1. Stable moderate-sized right pleural effusion. 2. Stable airspace opacities in right mid and lower lung zones, consistent with atelectasis versus pneumonia. 3. Cardiomegaly.
--- NOTE | 2020-10-11 11:30 | ECG_ITS ---
Measurements Intervals [place] Rate: 44 P: 22 WV: 208 QRS: 11 QRSD: 107 T: 17 QT: 526 QTc: 454 Interpretive Statements SINUS BRADYCARDIA BORDERLINE AV CONDUCTION DELAY PROLONGED QT INTERVAL ABNORMAL ECG Electronically Signed On 10-11-2020 11:58:23 CDT by Kosta Villatoro D.O.
--- NOTE | 2020-10-11 11:37 | ED.AMS ---
HPI - Altered Mental Status General Chief Complaint: Altered Mental Status Stated Complaint: AMS Time Seen by Provider: 10/11/20 11:32 Source: patient and EMS Mode of arrival: EMS Limitations: altered mental status History of Present Illness HPI narrative: The patient is 64-year-old female DM, CKD, HTN, recent right [id number]-tuax amputation 09/[address] Curtis, who presents for evaluation of AMS. Patient found to be altered and lethargic over past 4 days per staff at [facility]. Patient was just discharged from this facility on October 06 for similar symptoms. Patient is currently quite lethargic, but alert and oriented to person, place, and to time. She is denying any complaint of nic pain. She is pale, dehydrated appearing. Additional history limited secondary to altered mental status. Related Data Home Medications Medication Instructions Recorded Confirmed atorvastatin [Lipitor] 40 mg PO HS 02/01/19 10/11/20 hydralazine 100 mg PO TID 02/01/19 10/11/20 verapamil 240 mg PO QAM 02/01/19 10/11/20 clonidine HCl 0.1 mg tablet 0.1 mg PO BID 08/28/20 10/11/20 doxazosin 2 mg tablet 2 mg PO HS 08/28/20 10/11/20 levothyroxine 25 mcg capsule 25 mcg PO QAM 08/28/20 10/11/20 ergocalciferol (vitamin D2) 1,250 mcg PO WEEKLY 09/19/20 10/11/20 metoprolol tartrate 100 mg PO BID 09/19/20 10/11/20 acetaminophen 325 mg PO Q6H PRN 09/28/20 10/11/20 calcium carbonate [Tums] 500 mg PO PRN PRN 09/28/20 10/11/20 aspirin [Adult Aspirin EC Low 81 mg PO DAILY 10/11/20 10/11/20 Strength] cetirizine 10 mg PO DAILY 10/11/20 10/11/20 ferrous sulfate [Iron (ferrous 325 mg PO DAILY 10/11/20 10/11/20 sulfate)] Allergies Allergy/AdvReac Type Severity Reaction Status Date / Time sulfamethoxazole AdvReac Intermediate HIGH Verified 10/11/20 16:16 POTASSIUM trimethoprim AdvReac Intermediate HIGH Verified 10/11/20 16:16 POTASSIUM carvedilol AdvReac Unknown Dizziness Verified 10/11/20 16:16 oxycodone AdvReac Unknown Dizziness Verified 10/11/20 16:16 Review of Systems Review of Systems: ROS unobtainable: Yes unobtainable due to mental status PMFSH Past Medical History Medical History Chronic kidney disease (CKD) stage G4/A1, severely decreased glomerular filtration rate (GFR) between 15-29 mL/min/1.73 square meter and albuminuria creatinine ratio less than 30 mg/g Chronic pain of right ankle Hematoma of amputation stump of right lower extremity Hypercholesterolemia Hypertension Hypothyroidism Morbid obesity with BMI of 40.0-44.9, adult Osteoarthritis Primary localized osteoarthritis of right knee 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 Left foot reconstruction. Right mandibular surgery. Left total hip arthroplasty. Right transtibial amputation. Left knee arthroplasty. Presence of left artificial hip joint Family History Family History Other Diabetes mellitus Family history of alcoholism Hypertension Social History Social History Social History: The patient lives in [place] with her . She has no children. 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 Lifelong nonsmoker. Drinks perhaps 2 alcoholic beverages a week. No illicit substance use. She designates her , David Lopes, as her surrogate decision maker. Code status: Full code. Smoking status: Never smoker Alcohol intake: unknown Drinks per week: 3 Alcohol use details: BEER Substance use: unknown Substance use type: does not use Gender identity (if verbalized by the patient): Female Sexual Orientation (if Verbalized by the Patient): Straight or Heter
[2020-10-11] MEDS: ATROPINE SULFATE 1 MG/10 ML SYRINGE IV PUSH ×2 (11:45→12:27)
[2020-10-11] MEDS: MAGNESIUM SULF 2 GM/WATER 50ML 2 GM/50 ML BAG 100 GM (11:45)
[2020-10-11] MEDS: CALCIUM GLUCONATE 1,000 MG/10 ML VIAL 2000 MG IV PUSH (12:02)
[2020-10-11] MEDS: SODIUM BICARBONATE 8.4% 50 MEQ/50 ML SYRINGE IV PUSH (12:03)
[2020-10-11 12:13] LABS: HCO3 ABG 26.3 mEq/l (22.0-26.0); PCO2 ABG 78.4 mmHg (35.0-45.0); PO2 ABG 78.8 mmHg (80.0-100.0)
[2020-10-11 12:14] LABS: Alveolar/Arterial O2 Gradient 57.6 mmHg; Base Excess ABG -3.5 mEq/l (+/-2.0); Carboxyhemoglobin 0.1 % THb (0-2.0); Oxygen Content ABG 13.1 %vol (16.0-22.0); Oxyhemoglobin 93.3 % THb (90.0-100.0); Total Hemoglobin 9.9 g/dL (12.0-18.0)
[2020-10-11 12:15] LABS: Basophils Percent Auto 0.3 % (0.2-1.2); Eosinophils Percent Auto 0.1 % (0-4.4); Hematocrit 29.8 % (37.0-47.0); Hemoglobin 8.8 g/dL (12.0-15.0); Immature Granulocyte Absolute 0.22 K/mm3 (0.00-0.031); Immature Granulocyte Percent A 2.3 % (0-0.5); Lymphocytes Absolute Auto 0.56 K/mm3 (0.9-3.2); Mean Corpuscular HGB Conc 29.5 g/dl (32-36); Mean Corpuscular Hemoglobin 28.5 pg (26-34); Mean Corpuscular Volume 96.4 fl (80-100); Mean Platelet Volume 9.9 fl (7.4-10.4); Monocytes Absolute Auto 0.5 K/mm3 (0.1-0.6); Monocytes Percent Auto 4.8 % (2.6-8.5); Neutrophils Absolute Auto 8.1 K/mm3 (1.3-6.7); Neutrophils Percent Auto 86.5 % (45.5-73.1); Platelet Count Result 292 k/mm3 (150-375); Red Blood Count 3.09 M/mm3 (4.2-5.4); Red Cell Distribution Width 14.6 % (11.5-14.5); White Blood Count 9.4 K/mm3 (4.5-10.0)
[2020-10-11 12:15] LABS: Device NASAL CANNULA; Methemoglobin ABG 0.1 %THb (0-1.5); PO2 FiO2 Ratio Arterial Blood 2.46 %; Reduced Hemoglobin 6.5 %THb (0-5.0); Site Drawn RIGHT BRACHIAL
[2020-10-11 12:24] LABS: INR 1.1
[2020-10-11 12:25] LABS: Partial Thromboplastin Time 23.1 SECONDS (22.3-36.8)
[2020-10-11 12:28] LABS: D Dimer 2.38 ug/mL (<0.48)
[2020-10-11 12:28] LABS: Ammonia < 9 umol/L (9-30)
[2020-10-11 12:29] LABS: Lactic Acid Reflex 0.6 mmol/L (0.7-2.1)
[2020-10-11 12:32] LABS: Alanine Aminotransferase 9 U/L (4-35); Albumin Level 2.4 g/dL (3.5-5.1); Alkaline Phosphatase 59 U/L (38-126); Anion Gap 5 mmol/L (8-16); Aspartate Amino Transferase 22 U/L (14-36); Bilirubin,Total 0.1 mg/dL (0.2-1.3); Blood Urea Nitrogen 56 mg/dL (7-17); CRP 2.1 mg/dL (<1.0); Calcium 7.5 mg/dL (8.4-10.2); Carbon Dioxide 25 mmol/L (22-30); Chloride 105 mmol/L (98-107); Estimated CRCL calculation 24 ml/min; Estimated Glomerular Filt Rate 17; Glucose 166 mg/dL (65-105); Lipase 248 U/L (23-300); Sodium 135 mmol/L (137-145)
[2020-10-11 12:33] LABS: Fractional Inspired Oxygen 32 %
[2020-10-11] MEDS: NOREPINEPHRINE 8 MG/D5W 250 ML 8 MG/250 ML BAG 18.75 MG IV CONT (12:36)
[2020-10-11] MEDS: GLUCAGON FOR INJ 1 MG VIAL IV PUSH (12:38)
--- NOTE | 2020-10-11 12:40 | PC.NURSE ---
Pt giving verbal consent for Dr. Burciaga to place central line. Dr. Burciaga explaining risks and benefits. Pt unable to sign consent form at this time
[2020-10-11 12:42] LABS: NT Pro B Type Natriuretic Pept > 35000 pg/mL (5-100); Troponin I < 0.012 ng/mL (0.000-0.034)
--- NOTE | 2020-10-11 12:42 | PC.NURSE ---
Dr Burciaga at bedside initiating central line. Timeout performed
[2020-10-11 12:47] LABS: Basophilic Stippling 1+ (NORMAL); Platelet Estimate Adequate (Adequate)
[2020-10-11 12:48] LABS: Burr Cells 2+ (NORMAL)
--- NOTE | 2020-10-11 13:08 | PC.NURSE ---
Pt currently being paced. 25mA at a rate of 60BPM
[2020-10-11] MEDS: DOPamine 400 MG/D5W 250 ML 400 MG/250 ML BAG 11.88 MG IV CONT ×2 (13:15→18:17)
[2020-10-11 13:27] LABS: Glucose Point of Care 170 mg/dl (65-105)
--- NOTE | 2020-10-11 13:37 | PM.CNCAR ---
Assessment and Plan Assessment and plan (1) Altered mental status: Code(s): R41.82 - Altered mental status, unspecified Status: Acute Assessment and Plan: Probably due to sepsis secondary to stump infection. Management per bumper operator, (2) Anemia: Code(s): D64.9 - Anemia, unspecified Status: Acute Assessment and Plan: Hgb 8 Management per PC (3) Hematoma of amputation stump of right lower extremity: Code(s): T87.89 - Other complications of amputation stump Status: Acute (4) Right below-knee amputee: Onset Date: 09/28/20 Code(s): Z89.511 - Acquired absence of right leg below knee Status: Acute (5) Chronic kidney disease (CKD) stage G4/A1, severely decreased glomerular filtration rate (GFR) between 15-29 mL/min/1.73 square meter and albuminuria creatinine ratio less than 30 mg/g: Code(s): N18.4 - Chronic kidney disease, stage 4 (severe) Status: Acute Assessment and Plan: Cr 2.8 similar to the last one (6) Hypertension: Qualifiers: Hypertension type: essential hypertension Qualified Code(s): I10 - Essential (primary) hypertension Code(s): I10 - Essential (primary) hypertension Status: Acute (7) Type 2 diabetes mellitus: Qualifiers: Chronic kidney disease stage: stage 4 (severe) Diabetes mellitus complication detail: with chronic kidney disease Diabetes mellitus complication status: with kidney complications Diabetes mellitus superintendent terminal insulin use: without superintendent terminal use Qualified Code(s): E11.22 - Type 2 diabetes mellitus with diabetic chronic kidney disease; N18.4 - Chronic kidney disease, stage 4 (severe) Code(s): E11.9 - Type 2 diabetes mellitus without complications Status: Acute (8) Obesity: Code(s): E66.9 - Obesity, unspecified Status: Acute (9) Bradycardia: Code(s): R00.1 - Bradycardia, unspecified Status: Acute Assessment and Plan: initial EKG showed sinus bradycardia 44 bpm without acute changes CE negative Pt was on Bblockers and has CRI (Cr 2.8) Agree with ECHO to evaluate LV function She needs to be off Bblockers cont gentle hydration and Dopamine drio monitor electrolytes and kidney function supportive care Thank you for consult. Simon alonso. History of Present Illness History of Present Illness Consult date/time: 10/11/20 Ms. Lopes is a pleasant 64 y/o WF with PMH of DM, CRI, HTN, s/p recent R BKA who presented from inpatient rehab facility. Pt was found to have AMS, According to ER note pt is lethargic for the last 4 days. She was just dc from [place] on October 06. She was admitted recently due to similar symptoms. Review of records revealed that she was found to have C. difficile colitis and was hypoglycemic. She had surgery on . Then on wound vac of stump. While in ER she was found to be hypotensive and bradycardic. Pt was started on Dopamine and Levophed as well as atropine and transcutaneous pacer. Her BP is 90/50, HR 70-80 bpm. Labs showed K 5.0, Cr 2.8. Pt was on Bblockers before current admission. Pt was found to have elevated D dimer. She is going to have CT scan. Pt was seen and examined while in ER, chart reviewed, d/w ER physician and pt's nurse. Reason For Visit: AMS Review of Systems Review of Systems: Narrative: unable to obtain from pt due to pt;s condition. [facility] Past Medical History Medical History Chronic kidney disease (CKD) stage G4/A1, severely decreased glomerular filtration rate (GFR) between 15-29 mL/min/1.73 square meter and albuminuria creatinine ratio less than 30 mg/g Chronic pain of right ankle Hematoma of amputation stump of right lower extremity Hypercholesterolemia Hypertension Hypothyroidism Morbid obesity with BMI of 40.0-44.9, adult Osteoarthritis Primary localized osteoarthritis of right knee Pseudarthrosis after fusion or
[2020-10-11 13:49] LABS: Add Urine Microscopic? YES; Appearance Urine Cloudy (Clear); Bacteria Urine 2+ /hpf; Bilirubin Urine Negative (Negative); Blood Urine 2+ (Negative); Color Urine Yellow (Yellow); Glucose Urine UA 2+ mg/dL (Negative); Ketones Urine Negative (Negative); Leukocyte Esterase Ur 1+ LEU/UL (Negative); Mucus Urine Rare /lpf; Nitrate Urine Negative (Negative); Protein Urine 3+ mg/dL (Negative); RBC Urine >75 /hpf (0-2); Specific Grav Ur 1.023 (1.001-1.035); Urobilinogen Urine Negative mg/dL (<2.0); WBC Clumps Urine Present /HPF; WBC Urine >75 /hpf
[2020-10-11 14:09] LABS: Alveolar/Arterial O2 Gradient 101.1 mmHg; Base Excess ABG -9.1 mEq/l (+/-2.0); Carboxyhemoglobin 0.3 % THb (0-2.0); Fractional Inspired Oxygen 30 %; HCO3 ABG 20.1 mEq/l (22.0-26.0); Methemoglobin ABG 0.2 %THb (0-1.5); Oxygen Content ABG 10.9 %vol (16.0-22.0); Oxyhemoglobin 73.6 % THb (90.0-100.0); PO2 FiO2 Ratio Arterial Blood 1.36 %; Reduced Hemoglobin 25.9 %THb (0-5.0); Total Hemoglobin 10.5 g/dL (12.0-18.0)
[2020-10-11 14:12] LABS: PCO2 ABG 61.2 mmHg (35.0-45.0); PO2 ABG 40.9 mmHg (80.0-100.0); pH ABG 7.135 (7.350-7.450)
[2020-10-11 14:13] LABS: Device NON-INVASIVE VENT; Oxygen Saturation ABG 60.1 % (95.0-100.0); Site Drawn LEFT BRACHIAL
[2020-10-11 14:14] LABS: Non-Invasive Expiratory Pressure 5 CMH2O; Non-Invasive Inspiratory Pressure 15 CMH2O; Non-Invasive Vent Rate 16 /MIN
--- NOTE | 2020-10-11 14:15 | PC.NURSE ---
Pt pacing increased from 60 to 80BPM at 40mA
--- NOTE | 2020-10-11 14:18 | PC.NURSE ---
Dr. Burciaga at bedside to intubate pt.
--- NOTE | 2020-10-11 14:23 | PC.NURSE ---
5 mg of Etomidate given at 1423 50 mg Olman given at 1423
--- NOTE | 2020-10-11 14:25 | PC.NURSE ---
Pt intubated with 7.5 tube at 24 at the lip. good color change, equal bilateral breath sounds
--- NOTE | 2020-10-11 14:52 | PM.IMHP ---
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 Patient presented to the ED with altered mental status and increased somnolence. Initially she was able to answer some questions, but later on became increasingly lethargic and was difficult to be aroused. Blood sugar in the ED was noted to be 170. Ammonia level was drawn which was noted to be within normal limits. In addition she was noted to be bradycardic to the 40s with low blood pressure requiring 2 pressors. During the course of her stay in the ED she was noted to require intubation for respiratory acidosis and altered mentation it was also noted that her right BKA stump appeared to be infected. Cardiology was brought on board and deemed bradycardia secondary to medication overuse. Orthopedics was consulted from the ED and wound care was also invited to the care of the patient. Review of Systems Review of Systems: Narrative: Unable to conduct review of systems as patient is lethargic and unable to provide answers to the questions. Rest as per HPI. [facility] Past Medical History Medical History Chronic kidney disease (CKD) stage G4/A1, severely decreased glomerular filtration rate (GFR) between 15-29 mL/min/1.73 square meter and albuminuria creatinine ratio less than 30 mg/g Chronic pain of right ankle Hematoma of amputation stump of right lower extremity Hypercholesterolemia Hypertension Hypothyroidism Morbid obesity with BMI of 40.0-44.9, adult Osteoarthritis Primary localized osteoarthritis of right knee 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 Left foot reconstruction. Right mandibular surgery. Left total hip arthroplasty. Right transtibial amputation. Left knee arthroplasty. Presence of left artificial hip joint Family History Family History Other Diabetes mellitus Family history of alcoholism Hypertension Social History Social History Social History: The patient lives in [place] with her . She has no children. 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 Lifelong nonsmoker. Drinks perhaps 2 alcoholic beverages a week. No illicit substance use. She designates her , David Lopes, as her surrogate decision maker. Code status: Full code. Smoking status: Never smoker Alcohol intake: current Drinks per week: 3 Alcohol use details: BEER Substance use: never Substance use type: does not use Gender identity (if verbalized by the patient): Female Spiritual care concerns: No Meds Home Medications and Allergies Home Medications Medication Instructions Recorded Confirmed Type aspirin 81 mg PO DAILY 02/01/19 10/02/20 History atorvastatin [Lipitor] 40 mg PO HS 02/01/19 10/02/20 History hydralazine 100 mg PO TID 02/01/19 10/02/20 History verapamil 240 mg PO QAM 02/01/19 10/02/20 History clonidine HCl 0.1 mg tablet 0.1 mg PO BID 08/28/20 10/02/20 History doxazosin 2 mg tablet 2 mg PO HS 08/28/20 10/02/20 History levothyroxine 25 mcg capsule 25 mcg PO QAM 08/28/20 10/02/20 History ergocalciferol (vitamin D2) 1,250 mcg PO WEEKLY 09/19/20 10/02/20 History ferrous sulfate [Iron (ferrous 239 mg PO DAILY 09/19/20
[2020-10-11] MEDS: RAPID SEQUENCE INTUBATION KIT 1 EACH (15:05)
[2020-10-11] MEDS: PROPOFOL IV EMULSION 100 ML 3.8 MG IV CONT (16:12)
--- NOTE | 2020-10-11 17:09 | ADMGEN ---
This patient, Rimma Lopes, was admitted to Intensive Care Unit-4. Patient/family oriented to hospital policies and general routines including ID bracelet, bed and alarms, visiting hours, pain management, procedures, bathroom and other care routines, personal items, smoking policy, room service/diet, and visiting hours. Information on how to activate the Rapid Response Team has been discussed. Patient/Family are encouraged to report perceived risks to care and to ask questions if they do not understand what they are told or what they should do.
--- NOTE | 2020-10-11 17:27 | PM.CNOR ---
Assessment and Plan Assessment and plan (1) Right below-knee amputee: Onset Date: 09/28/20 Code(s): Z89.511 - Acquired absence of right leg below knee Status: Acute Assessment and Plan: 2 weeks status post right below-knee amputation complicated by hematoma and wound dehiscence. Patient brought to the emergency room in extremis, required intubation and cardiac pacing with pressors. Patient admitted to the intensive care unit. Right amputation stump cleaned with Betadine and sterile gauze. Cultures obtained. Appears to be mainly necrotic tissue with dehiscence although certainly could have superinfection component. Will await culture results. Daily dressing changes and supportive care. Will continue to follow. History of Present Illness HPI Consult date: 10/11/20 Requesting physician: Anyi Burciaga MD Chief complaint: sepsis,cardiogenic shcok,respiratory failure Narrative: 64-year-old woman 2 weeks status post right below-knee amputation for Charcot ankle deformity with ankle ulceration. Surgery complicated by postoperative hematoma and wound dehiscence. Last week she was placed on a wound VAC and returned back to the detention. Brought to the emergency room today for mental status changes and lethargy. Found to be in shock and was subsequently intubated and Cardiac pacing placement. Patient currently on pressors to sustain blood pressure. Review of Systems Constitutional: Constitutional: Denies fever(s) Eyes: Eyes: Denies blurry vision ENT: Reports Normal hearing present Cardiovascular: Cardiovascular: Denies chest pain and Denies dyspnea Respiratory: Respiratory: Denies dyspnea and Denies wheezing Gastrointestinal: Gastrointestinal: Denies abdominal pain Genitourinary: Genitourinary: Denies urinary urgency Musculoskeletal: Musculoskeletal: Reports as per HPI and Denies numbness Integumentary/Breasts: Skin/Breast: Reports changing lesions, Reports dry skin, Reports sores and Reports other ( Skin changes with psoriatic arthritis) Neurologic: Reports Normal hearing present, Denies behavioral changes, Denies confusion, Denies numbness and Denies convulsions Psychiatric: Psychiatric: Denies behavioral changes, Denies confusion and Denies hallucinations Endocrine: Endocrine: Denies heat intolerance Hematologic/Lymphatic: Hematologic/Lymphatic: Denies easy bleeding Allergic/Immunologic: Allergic/Immunologic: Denies wheezing PMFSH Past Medical History Medical History Chronic kidney disease (CKD) stage G4/A1, severely decreased glomerular filtration rate (GFR) between 15-29 mL/min/1.73 square meter and albuminuria creatinine ratio less than 30 mg/g Chronic pain of right ankle Hematoma of amputation stump of right lower extremity Hypercholesterolemia Hypertension Hypothyroidism Morbid obesity with BMI of 40.0-44.9, adult Osteoarthritis Primary localized osteoarthritis of right knee 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 Left foot reconstruction. Right mandibular surgery. Left total hip arthroplasty. Right transtibial amputation. Left knee arthroplasty. Presence of left artificial hip joint Family History Family History Other Diabetes mellitus Family history of alcoholism Hypertension Social History Social History Social History: The patient lives in [place] with her . She has no children. 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 Lifelong nonsmoker. Drinks perhaps 2 alcoholic beverages a week. No illicit substance use. She designates her , David Lopes, as her surrog
[2020-10-11 18:05] LABS: Glucose Point of Care 247 mg/dl (65-105)
[2020-10-11] MEDS: INSULIN ASPART (*BKC) 100 UNITS/ML SUB-Q (18:15)
[2020-10-11] MEDS: PANTOPRAZOLE SODIUM IV 40 MG VIAL IV PUSH (18:20)
[2020-10-11] MEDS: VANCOMYCIN ORAL 125 MG/2.5 ML SYRUP PO ×2 (18:52→23:26)
[2020-10-11] MEDS: ATORVASTATIN 40 MG TABLET PO (20:37)
[2020-10-11] MEDS: HEPARIN SODIUM 5,000 UNITS/ML VIAL 5000 UNITS SUB-Q (20:37)
[2020-10-11] MEDS: MINERAL OIL/WHITE PETROLATUM OINTMENT 1 APPLIC EACH EYE (20:38)
[2020-10-11] MEDS: DOPamine 400 MG/D5W 250 ML 400 MG/250 ML BAG 47.51 MG IV CONT (23:35)
[2020-10-12] VITALS (43 sets, daily range): BP systolic 80–164; BP diastolic 49–93; PULSE 57–81; RESP 16–28; TEMP 36.9–37.6; O2SAT 96–100; BMI 52.3
[2020-10-12] MEDS: NOREPINEPHRINE 8 MG/D5W 250 ML 8 MG/250 ML BAG 31.88 MG IV CONT (01:07)
[2020-10-12] MEDS: PROPOFOL IV EMULSION 100 ML 7.6 MG IV CONT ×2 (01:09→14:33)
[2020-10-12 01:30] LABS: Glucose Point of Care 165 mg/dl (65-105)
[2020-10-12 03:46] LABS: NT Pro B Type Natriuretic Pept > 35000 pg/mL (5-100)
[2020-10-12] MEDS: DOPamine 400 MG/D5W 250 ML 400 MG/250 ML BAG 47.51 MG IV CONT (05:04)
[2020-10-12] MEDS: HEPARIN SODIUM 5,000 UNITS/ML VIAL 5000 UNITS SUB-Q ×3 (05:10→20:47)
[2020-10-12] MEDS: LEVOTHYROXINE SODIUM 25 MCG TABLET PO (05:10)
[2020-10-12] MEDS: VANCOMYCIN ORAL 125 MG/2.5 ML SYRUP PO ×3 (05:10→17:15)
[2020-10-12 05:20] LABS: Lactic Acid Reflex 0.6 mmol/L (0.7-2.1)
[2020-10-12 05:36] LABS: Basophils Absolute Auto 0.1 K/mm3 (0.0-0.1); Basophils Percent Auto 0.5 % (0.2-1.2); Eosinophils Absolute Auto 0.1 K/mm3 (0-0.3); Eosinophils Percent Auto 0.6 % (0-4.4); Hematocrit 31.7 % (37.0-47.0); Hemoglobin 9.9 g/dL (12.0-15.0); Immature Granulocyte Percent A 1.4 % (0-0.5); Lymphocytes Absolute Auto 0.43 K/mm3 (0.9-3.2); Mean Corpuscular HGB Conc 31.2 g/dl (32-36); Mean Corpuscular Hemoglobin 28.8 pg (26-34); Mean Corpuscular Volume 92.2 fl (80-100); Mean Platelet Volume 9.8 fl (7.4-10.4); Monocytes Absolute Auto 0.6 K/mm3 (0.1-0.6); Monocytes Percent Auto 4.1 % (2.6-8.5); Neutrophils Absolute Auto 12.9 K/mm3 (1.3-6.7); Neutrophils Percent Auto 90.4 % (45.5-73.1); Platelet Count Result 347 k/mm3 (150-375); Red Blood Count 3.44 M/mm3 (4.2-5.4); Red Cell Distribution Width 14.3 % (11.5-14.5); White Blood Count 14.3 K/mm3 (4.5-10.0)
[2020-10-12 05:57] LABS: Alanine Aminotransferase 10 U/L (4-35); Albumin Level 2.4 g/dL (3.5-5.1); Alkaline Phosphatase 71 U/L (38-126); Anion Gap 6 mmol/L (8-16); Aspartate Amino Transferase 20 U/L (14-36); Bilirubin,Total 0.2 mg/dL (0.2-1.3); Blood Urea Nitrogen 54 mg/dL (7-17); Calcium 7.6 mg/dL (8.4-10.2); Carbon Dioxide 21 mmol/L (22-30); Chloride 106 mmol/L (98-107); Creatine Kinase < 20 U/L (30-135); Estimated CRCL calculation 24 ml/min; Estimated Glomerular Filt Rate 16; Glucose 107 mg/dL (65-105); Lactate Dehydrogenase 518 U/L (313-618); Magnesium 1.7 mg/dL (1.6-2.3); Potassium 4.6 mmol/L (3.4-5.0); Sodium 133 mmol/L (137-145)
[2020-10-12 06:40] LABS: Alveolar/Arterial O2 Gradient 376.2 mmHg; Base Excess ABG -8.7 mEq/l (+/-2.0); Fractional Inspired Oxygen 80 %; HCO3 ABG 17.3 mEq/l (22.0-26.0); Oxygen Saturation ABG 98.8 % (95.0-100.0); Oxyhemoglobin 97.3 % THb (90.0-100.0); PCO2 ABG 37.8 mmHg (35.0-45.0); PO2 ABG 154.5 mmHg (80.0-100.0); PO2 FiO2 Ratio Arterial Blood 1.93 %; Total Hemoglobin 11.5 g/dL (12.0-18.0)
[2020-10-12 06:41] LABS: Modified Allen's Test Unable to perform; Site Drawn RIGHT RADIAL; pH ABG 7.279 (7.350-7.450)
[2020-10-12 06:42] LABS: Arterial Blood Gas PEEP 8 cmH2O; Arterial Blood Gas Tidal Volume 400 ml; Arterial Blood Gas Vent Mode CMV; Arterial Blood Gas Ventilator rate 16 /MIN; Device VENTILATOR
--- NOTE | 2020-10-12 08:38 | ECHO_ITS ---
Patient Info Name: Rimma Lopes Age: 64 years : 1955 Gender: Female Ht: 63 in Wt: 295 lbs BSA: 2.53 m2 HR: 68 bpm BP: 167 / 74 mmHg Heart Rhythm: Sinus Rhythm Exam Date: 10/12/2020 4:23 PM Exam Location: [facility] Pulmonary Exam Room: ICU4 Patient Status: Inpatient Admit Date: 10/11/2020 Staff Ordering Physician: Glory Montanez MD Packager: Lizy Collins RDCS Attending Provider: Glory Montanez MD Referring Physician: Lisseth DAVALOS; Exam Type: CA echo doppler color flow Study Info Indications - bradycardia Complete two-dimensional, color flow and Doppler transthoracic echocardiogram is performed. Summary 1. Complete two-dimensional, color flow and Doppler transthoracic echocardiogram is performed. 2. Technically difficult study with limited views. 3. Left ventricular chamber dimension is normal. 4. Left ventricular wall thickness is mildly increased. 5. Left ventricular systolic function is normal with an ejection fraction by Biplane Method of Discs of 54 %. 6. The left ventricular diastolic function is grade I diastolic dysfunction. 7. Left atrial chamber dimension is moderately enlarged. 8. Moderate pulmonary hypertension, estimated pulmonary arterial systolic pressure is 54 mmHg. 9. Normal inferior vena cava with <50% collapse upon inspiration consistent with elevated right atrial pressure, 10 mmHg. Left Ventricle Left ventricular chamber dimension is normal. Left ventricular wall thickness is mildly increased. Left ventricular systolic function is normal with an ejection fraction by Biplane Method of Discs of 54 %. The left ventricular diastolic function is grade I diastolic dysfunction. Right Ventricle Right ventricular chamber dimension is normal. Right ventricular systolic function is normal. Ventricular Septum Interventricular septum not well visualized by 2D imaging. Left Atria Left atrial chamber dimension is moderately enlarged. Right Atria Right atrial chamber dimension is normal. Atrial Septum Interatrial septum not well visualized by 2D imaging. Aortic Valve There is no aortic valve stenosis. Aortic valve is not well visualized. There is trace aortic valve regurgitation. Pulmonic Valve Pulmonary valve is not well visualized. There is trace pulmonic regurgitation. There is no pulmonic valve stenosis. Mitral Valve There is mild mitral valve regurgitation. Mitral valve is not well visualized. Mild thickening of the mitral valve. There is no mitral valve stenosis. Tricuspid Valve There is mild tricuspid valve regurgitation. Moderate pulmonary hypertension, estimated pulmonary arterial systolic pressure is 54 mmHg. There is no significant tricuspid valve stenosis. The tricuspid valve is not well visualized. Pericardium/Pleural Pericardium is normal in appearance with no evidence for significant pericardial effusion. Inferior Vena Cava Normal inferior vena cava with <50% collapse upon inspiration consistent with elevated right atrial pressure, 10 mmHg. Left Ventricular Outflow Tract Name Value Normal LVOT 2D LVOT Diameter 2.1 cm LVOT Doppler
[2020-10-12] MEDS: SODIUM CHLORIDE 0.9% IV 1,000 ML 75 ML IV CONT (08:44)
--- NOTE | 2020-10-12 09:01 | WPDCNINT ---
Assessment and Plan Assessment and plan (1) Bradycardia: Code(s): R00.1 - Bradycardia, unspecified Status: Acute Assessment and Plan: patient presented with bradycardia with heart rates in the 30s and 40s in the ER, likely thought to be due to a beta-blockers, hypotension and septic versus cardiogenic shock. - Patient remains on dopamine, - heart rate better controlled, -patient also received atropine in the ER and was transcutaneously paced. Pacer pads have been removed this morning - cardiology following the patient - continue monitor heart rates closely (2) Septic shock: Code(s): A41.9 - Sepsis, unspecified organism; R65.21 - Severe sepsis with septic shock Status: Acute Assessment and Plan: shock likely related to septic versus cardiogenic patient was hypotensive lactic acid was 0.6, initially dominant white blood white count has increased this morning. - Central line the right IJ, patient on Levophed, will maintain MAP > 65 mmHg for adequate end organ perfusion - Levophed requirements trending down - lactic acid is normal - blood cultures, urine cultures, culture from the right BKA wound have been obtained and pending - continue vancomycin IV, cefepime IV - patient also has recent history of C diff colitis she is on p.o. vancomycin and that was continued (3) Respiratory failure: Code(s): J96.90 - Respiratory failure, unspecified, unspecified whether with hypoxia or hypercapnia Status: Acute Assessment and Plan: patient was in acute hypercapnic respiratory failure - given her altered mental status and encephalopathy patient was intubated for airway protection - currently on CMV mode of ventilation, peep of 8 and 80% FiO2, - ABGs and chest x-rays reviewed, will adjust tidal volumes, aspirated, FiO2 and I to E ratio - add bronchodilators - patient on propofol for sedation (4) UTI (urinary tract infection): Code(s): N39.0 - Urinary tract infection, site not specified Status: Acute Assessment and Plan: urinalysis reflective of possible UTI - continue antibiotics as above - await Sy culture results (5) Leg wound, right: Code(s): S81.801A - Unspecified open wound, right lower leg, initial encounter Status: Acute Assessment and Plan: right BKA done on 09/30/[address] Curtis, ortho - [facility] following the patient - x-ray of the knee on 10/11/2020: . Irregularity of the bone margin of the fibular stump, which is indeterminate for osteomyelitis.2. Severe right knee osteoarthritis. 3. Large knee joint effusion with loose bodies. (6) C. difficile colitis: Code(s): A04.72 - Enterocolitis due to Clostridium difficile, not specified as recurrent Status: Acute Assessment and Plan: patient was recently of C diff colitis, continue p.o. vancomycin (7) Encephalopathy: Code(s): G93.40 - Encephalopathy, unspecified Status: Acute Assessment and Plan: encephalopathy much improved this morning, patient is awake, alert, follows simple commands with bilateral upper extremities and left lower extremities as she has a right BKA. - Ammonia levels were within normal limits - CT scan of the brain did not show any acute intracranial abnormality - continue to monitor (8) Diabetes: Code(s): E11.9 - Type 2 diabetes mellitus without complications Status: Acute Assessment and Plan: patient with history of diabetes, continue Accu-Cheks and sliding scale insulin - last hemoglobin A1c on 10/02/2020 was 4.7 (9) Acute renal failure superimposed on stage 4 chronic kidney disease: Code(s): N17.9 - Acute kidney failure, unspecified; N18.4 - Chronic kidney disease, stage 4 (severe) Status: Acute Assessment and Plan: patient has history of stage 4 chronic kidney disease, now with possible acute on chronic kidney injury likely related to hypotension, septic shock, infection
--- NOTE | 2020-10-12 09:16 | PM.PNORT ---
Progress Note: A&P Assessment and Plan (1) Right below-knee amputee: Onset Date: 09/28/20 Code(s): Z89.511 - Acquired absence of right leg below knee Status: Acute Assessment and Plan: Preliminary cultures of the right stump wound reveal rare gram positive cocci, final cultures pending. UA consistent with probable UTI. Urine/blood cultures pending. Continue IV antibiotics. Radiographs reveal changes consistent with below-knee amputation, tibial stump demonstrates a sharp margin while there is irregularity of the bone margin of the fibular stump. Wound care team at bedside for evaluation. Begin dakin's soaked gauze dressing changes BID. Elevate stump. Will determine further plan of care for nonhealing stump wounds pending culture results. Will continue to follow. Subjective Subjective Date/Time Seen: 10/12/20 0830 Patient currently intubated on mechanical ventilation Review of Systems Review of Systems: ROS unobtainable: Yes unobtainable due to endotracheal tube, unobtainable due to medical condition and unobtainable due to mental status Exam Const: General: cooperative, awake and other ( Intubated. ) Nutritional Appearance: obese HENMT: Head: normal to inspection, normocephalic and atraumatic Eyes: Conjunctivae: conjunctivae normal Sclera: sclerae normal Neck: Neck: supple and nontender : General: Yes deferred Urinary Catheter: Urinary Catheter: patent and draining and urine cloudy Extrem: Right lower extremity: hip/thigh Details: normal to inspection, knee Details: normal to inspection; no tenderness and lower leg (Below-knee amputation.) Details: other ( Wound VAC occlusive dressing in place, no VAC connection. Abundant seroma and serous drainage with necrotic factors draining from incision. Partial dehiscence of incision with pullout of multiple emy.) Left lower extremity: hip/thigh Details: normal to inspection, knee Details: abnormal ROM ( range of motion deferred secondary to fracture), ankle (no calf tenderness) Details: normal to inspection, abnormal ROM Details: with range as follows ( Minimal range of motion ankle and hindfoot secondary to fusion); no pain with active ROM and no pain with passive ROM and other ( good capillary refill in toes, 2+ DP pulse, light touch sensation intact); no tenderness ( lateral malleolus, anterior ankle and medial ankle) and no swelling ( moderate anterior ankle, moderate lateral ankle) and foot Details: normal capillary refill, toes with normal ROM, vascular exam Details: dorsalis pedis pulse present and normal capillary refill, tendon exam active flexion normal and active extension normal and motor-sensory exam two point discrimination normal and light-touch normal; no tenderness Other: Some approximation of the incision at the mid portion. 75% wound dehiscence with necrotic subcutaneous tissue surrounding. Wound dehiscence with necrosis, tunneling and mild serosanguineous drainage. Inability to probe to bone. Dry gauze dressing applied. Objective Data Vital Signs Vital Signs: Vital Signs - 24 hr 10/11/20 11:17 10/11/20 11:18 10/11/20 11:19 Temperature 36.8 C Pulse Rate 46 L 46 L 45 L Respiratory Rate 8 L 26 H 26 H Blood Pressure 103/55 L 103/55 L Pulse Oximetry 72 L 99 99 10/11/20 11:30 10/11/20 11:31 10/11/20 11:36 Temperature Pulse Rate 44 L 44 L Respiratory Rate 18 29 H Blood Pressure 77/47 L 99/76 L Pulse Oximetry 98 98 98 10/11/20 11:58 10/11/20 11:59 10/11/20 12:00 Temperature Pulse Rate 52 L 51 L 49 L Respiratory Rate 24 H 32 H 23 H Blood Pressure 79/44 L Pulse Oximetry 96 95 98 10/11/20 12:15 10/11/20 12:25 10/11/20 12:35 Temperature Pulse Rate 44 L 36 L 38 L Respiratory Rate 18 19 19 Blood Pressure Pulse Oximetry 100 100 10/11/20 12:36 10/11/20 12:38 10/11/20 12:44 Temperature Pulse Rate 38 L 42 L 36 L Respiratory Rate 22 H 20 Blood Pressure 77/32 L 65/25 L 69/37 L Pulse Oxim
[2020-10-12 10:14] LABS: Potassium Urine Random 12.8 meq/L; Sodium Urine Random 20 meq/L
[2020-10-12 10:16] LABS: Troponin I 0.015 ng/mL (0.000-0.034)
[2020-10-12] MEDS: MINERAL OIL/WHITE PETROLATUM OINTMENT 1 APPLIC EACH EYE ×2 (10:27→20:46)
--- NOTE | 2020-10-12 10:39 | PM.PNCARD ---
Progress Note: A&P Assessment and Plan (1) Bradycardia: Code(s): R00.1 - Bradycardia, unspecified Status: Acute Assessment and Plan: initial EKG showed sinus bradycardia 44 bpm Heart rate better now up to 60s. Off transcutaneous pacing Wean off Dopamine Bradycardia is multifactorial in the setting of sepsis, polypharmacy including BB (Metoprolol 200 mg daily), CCB (verapamil 240 mg daily), and clonidine as well as possible slow heart rate at baseline (EKG in 2013 showed HR of 57, not sure if was on blocking agents back then) Check 2D echo No acute indication for pacemaker placement treat underlying sepsis as per primary team (2) Right below-knee amputee: Onset Date: 09/28/20 Code(s): Z89.511 - Acquired absence of right leg below knee Status: Acute Assessment and Plan: Complicated with infection. Management per surgery (3) Chronic kidney disease (CKD) stage G4/A1, severely decreased glomerular filtration rate (GFR) between 15-29 mL/min/1.73 square meter and albuminuria creatinine ratio less than 30 mg/g: Code(s): N18.4 - Chronic kidney disease, stage 4 (severe) Status: Acute Assessment and Plan: Creatinine close to baseline (4) Hypertension: Qualifiers: Hypertension type: essential hypertension Qualified Code(s): I10 - Essential (primary) hypertension Code(s): I10 - Essential (primary) hypertension Status: Acute Assessment and Plan: Hypotensive on admission in the setting of sepsis. Now BP high. Avoid blocking agents for now. May consider resume BB at lower dose (5) Type 2 diabetes mellitus: Qualifiers: Diabetes mellitus fdc insulin use: without fdc use Diabetes mellitus complication status: with kidney complications Diabetes mellitus complication detail: with chronic kidney disease Chronic kidney disease stage: stage 4 (severe) Qualified Code(s): E11.22 - Type 2 diabetes mellitus with diabetic chronic kidney disease; N18.4 - Chronic kidney disease, stage 4 (severe) Code(s): E11.9 - Type 2 diabetes mellitus without complications Status: Acute (6) Obesity: Code(s): E66.9 - Obesity, unspecified Status: Acute Subjective Date/time seen: 10/12/20 10:39 Remains intubated on the vent off Levophed. Still on Dopamine Off transcutaneous pacing since 3 am Review of Systems Review of Systems: ROS unobtainable: Yes unobtainable due to endotracheal tube Exam Narrative: Exam Narrative: Morbidly obese. S/p right BKA. Sedated on the vent Const: General: acute distress Nutritional Appearance: obese HENMT: Head: normal to inspection and atraumatic Face and sinus: normal facial exam Eyes: General: appearance normal, both eyes and all related structures Pupils: Equal, round and reactive pupils present EOM: EOMs intact bilaterally Neck: Neck: normal visual inspection and no JVD Chest: Chest palpation & inspection: normal inspection of the chest Resp: Effort & Inspection: normal respiratory effort and no respiratory distress Auscultation: diminished lung sounds Cardio: Jugular venous distension: no JVD Rate: regular rate Heart sounds: S1 normal heart sound present, S2 normal heart sound present and no murmurs GI: Inspection: normal to inspection Auscultation: normal bowel sounds Skin: General skin exam: pallor Neuro: General: confusion Cranial nerves: Yes Equal, round and reactive pupils present Extrem: General: amputation noted (R BKA covered with dressing) Below the knee: right Objective Data Vital Signs Vital Signs: Vital Signs - 24 hr 10/11/20 11:17 10/11/20 11:18 10/11/20 11:19 Temperature 36.8 C Pulse Rate 46 L 46 L 45 L Respiratory Rate 8 L 26 H 26 H Blood Pressure 103/55 L 103/55 L Pulse Oximetry 72 L 99 99 10/11/20 11:30 10/11/20 11:31 10/11/20 11:36 Temperature Pulse Rate 44 L 44 L Respiratory Rate 18 29 H Blood Pressure
[2020-10-12 10:53] LABS: Eosinophil Urine None Seen % (None Seen)
[2020-10-12] MEDS: PANTOPRAZOLE SODIUM IV 40 MG VIAL IV PUSH (11:50)
[2020-10-12 12:10] LABS: Glucose Point of Care 69 mg/dl (65-105)
--- NOTE | 2020-10-12 12:36 | PCDIET ---
Discussed tube feeding recommendations with . Verbal order for Nepro at 40mL/hr goal rate which will provide 1584kcal (1784kcal with Propofol at current rate), 71g protein and 639mL free water over 22 hours/day.
--- NOTE | 2020-10-12 13:27 | WPDINFPN2 ---
Progress Note: A&P Assessment and Plan (1) Septic shock: Code(s): A41.9 - Sepsis, unspecified organism; R65.21 - Severe sepsis with septic shock Status: Acute Assessment and Plan: 1. Septic shock, consider C diff infection with colitis, R BKA stump infection, or other subtle sources 2. BKA 09/28 3. Left hip and knee prosthetic joints 4. CRI 5. Indwelling Colunga, doubt UTI REC Cefepime and Vanc IV #2, oral vanc #7. Add metronidazole #1. F/U micro. PharmD dosing Vanc for target trough 10-15. Dr. Curtis following for any needed surgical intervention. Subjective Date/time seen: 10/12/20 13:27 Objective Data Vital Signs Vital Signs: Vital Signs - 24 hr 10/11/20 13:48 10/11/20 13:51 10/11/20 14:21 Temperature Pulse Rate 81 79 72 Respiratory Rate 26 H 30 H 23 H Blood Pressure 65/32 L 86/53 L 82/48 L Pulse Oximetry 96 97 10/11/20 14:26 10/11/20 14:30 10/11/20 15:00 Temperature Pulse Rate 90 55 L 57 L Respiratory Rate 17 26 H Blood Pressure 89/51 L 103/59 L Pulse Oximetry 100 100 100 10/11/20 15:01 10/11/20 15:16 10/11/20 15:46 Temperature Pulse Rate 51 L 72 Respiratory Rate 17 18 18 Blood Pressure 128/64 136/54 L Pulse Oximetry 100 100 100 10/11/20 16:12 10/11/20 16:23 10/11/20 16:34 Temperature Pulse Rate 55 L 51 L Respiratory Rate 14 18 Blood Pressure 136/54 L 123/81 Pulse Oximetry 100 10/11/20 17:00 10/11/20 17:17 10/11/20 18:00 Temperature 33.4 C L Pulse Rate 53 L 82 Respiratory Rate 16 Blood Pressure 141/84 H Pulse Oximetry 100 100 100 10/11/20 18:17 10/11/20 20:00 10/11/20 20:30 Temperature 34.9 C L 34.7 C L Pulse Rate 86 63 63 Respiratory Rate 16 16 Blood Pressure 155/71 H 138/63 Pulse Oximetry 100 100 10/11/20 20:35 10/11/20 20:47 10/11/20 21:02 Temperature 34.8 C L 35 C L Pulse Rate 60 Respiratory Rate 20 Blood Pressure Pulse Oximetry 100 10/11/20 21:04 10/11/20 21:16 10/11/20 21:17 Temperature 35.1 C L 35.2 C L 35.2 C L Pulse Rate 68 79 Respiratory Rate 16 16 Blood Pressure 144/87 H Pulse Oximetry 100 100 10/11/20 21:31 10/11/20 21:32 10/11/20 21:46 Temperature 35.4 C L 35.4 C L 35.6 C L Pulse Rate 75 63 Respiratory Rate 16 16 Blood Pressure 126/74 133/69 Pulse Oximetry 100 100 10/11/20 21:47 10/11/20 22:00 10/11/20 22:01 Temperature 35.5 C L 35.7 C L 35.7 C L Pulse Rate 62 64 Respiratory Rate 16 16 Blood Pressure 135/68 135/68 Pulse Oximetry 100 100 10/11/20 22:16 10/11/20 22:17 10/11/20 22:31 Temperature 35.9 C L 35.9 C L 36.1 C L Pulse Rate 66 56 L Respiratory Rate 16 16 Blood Pressure 151/70 H 115/75 Pulse Oximetry 100 100 10/11/20 22:46 10/11/20 22:47 10/11/20 23:15 Temperature 36.2 C L 36.1 C L Pulse Rate 61 75 Respiratory Rate 16 Blood Pressure 146/75 H Pulse Oximetry 100 100 10/11/20 23:24 10/11/20 23:25 10/11/20 23:35 Temperature 36.6 C Pulse Rate 74 70 70 Respiratory Rate 16 Blood Pressure 146/80 H 146/80 H 149/88 H Pulse Oximetry 100 10/11/20 23:39 10/12/20 00:00 10/12/20 01:07 Temperature 36.9 C Pulse Rate 79 71 69 Respiratory Rate 16 Blood Pressure 134/75 146/82 H 152/78 H Pulse Oximetry 100 10/12/20 01:09 10/12/20 01:12 10/12/20 01:42 Temperature Pulse Rate 64 76 73 Respiratory Rate 16 Blood Pressure 153/76 H 153/69 H Pulse Oximetry 10/12/20 02:00 10/12/20 02:21 10/12/20 02:41 Temperature 37.1 C Pulse Rate 67 71 67 Respiratory Rate 16 Blood Pressure 156/73 H 135/60 Pulse Oximetry 100 10/12/20 02:42 10/12/20 02:47 10/12/20 02:52 Temperature Pulse Rate 65 60 62 Respiratory Rate Blood Pressure 147/93 H 152/67 H 143/68 H Pulse Oximetry 10/12/20 03:00 10/12/20 04:00 10/12/20 04:26 Temperature 37.2 C Pulse Rate 72 62 61 Respiratory Rate 16 Blood Pressure 148/65 H 148/65 H Pulse Oximetry 98 100 10/12/20 04:27 10/12/20 05:00 10/12/20 05:04 Temper
[2020-10-12] MEDS: ALBUTEROL SULFATE NEB 2.5 MG/0.5 ML INH INHALATION ×2 (13:36→21:12)
[2020-10-12] MEDS: IPRATROPIUM BR 0.02% INH SOLN 0.5 MG/2.5 ML VIAL INHALATION ×2 (13:36→21:12)
[2020-10-12] MEDS: SOD HYPOCHLORITE 1/4 STRENGTH 473 ML 1 APPLIC TOPICAL ×2 (14:33→20:46)
[2020-10-12] MEDS: metroNIDAZOLE 500 MG/ISO 100ML 500 MG/100 ML BAG 100 MG IVPB ×2 (14:34→20:47)
[2020-10-12] MEDS: CENTRAL LINE FLUSH 10 ML IV PUSH ×3 (14:35→20:47)
--- NOTE | 2020-10-12 15:13 | CONS_ITS ---
DATE OF CONSULTATION: 10/12/2020 REASON FOR CONSULTATION: Septic shock. HISTORY OF PRESENT ILLNESS: A 64-year-old female who cannot provide any history. She is intubated and lightly sedated. She had a chronic nonhealing surgical wound at the right ankle after previous trauma. After all other measures failed, she was taken to the operating room on September 28 and underwent BKA. She was here for approximately a week thereafter and during her hospital stay, she was found to have diarrhea with positive C difficile assay, was started on vancomycin. She then was sent to a correction for rehab, but returned here yesterday with 3 to 4 days of decreased level of consciousness and decreased level of interaction with poor p.o. intake. She was hypotensive on arrival here, which did not respond to fluid resuscitation. She was placed on pressors. Also received an external pacemaking device. The latter was due to bradycardia. Right IJ central venous catheter was placed. She already has a Colunga that has been in place since her operation apparently. She is now on cefepime and vancomycin day 2, along with oral vancomycin and consultation requested. Review of her correction record indicates no other recent antibiotics. ALLERGIES: TRIMETHOPRIM SULFA RESULTED IN HIGH POTASSIUM LEVEL. PRESENT MEDICATIONS: List reviewed. No immunosuppressants. HABITS: No tobacco. Social drinker. No illicit drugs. PAST MEDICAL HISTORY: Psoriatic arthritis, but apparently no systemic immunosuppressants. Also prosthetic joints, left hip and left knee. Type 2 diabetes mellitus, single seizure episode in the past, osteoarthritis of the right knee, obesity, hypothyroidism, hypertension, hyperlipidemia, and stage IV chronic renal insufficiency. REVIEW OF SYSTEMS: 14-point review attempted, not obtainable from the patient due to decreased level of consciousness and intubated status. FAMILY HISTORY: Not pertinent to her present illness. 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 Lives locally. and no family at the bedside currently. PHYSICAL EXAMINATION: VITAL SIGNS: She was hypothermic on arrival at 33.4. Temperature has since risen to the normal range, 62, 16, 111/71, 100% saturation on the noted ventilator settings. She is on norepinephrine 3 mcg. All other pressors have been discontinued. Propofol is being infused as well. SKIN: No generalized rashes. Warm and dry. EENT: The conjunctivae are mildly suffused. Exam of the mouth is compromised by her endotracheal tube, but on brief inspection appears normal. NECK: There are no masses, thyromegaly, stridor, and she has no meningismus. LUNGS: Coarse breath sounds, vesicular, clear to percussion. LINES: Right IJ central venous catheter without hematoma or skin breakdown. CARDIAC: Regular rate and rhythm. There is no bradycardia presently. No ectopy. No murmurs or gallops. Pulses 1+ and equal. ABDOMEN: Massively obese, but on palpation, no apparent masses, tenderness, guarding, or organomegaly. She has rare bowel sounds. EXTREMITIES: Left leg has no clubbing, cyanosis, edema. No venous varicosities. No tenderness. Her right BKA incision is dehisced. There is a foul odor. Purulence in the midportion of the open wound, slough and dried blood. She has no proximal erythema. LABORATORY DATA: White count yesterday normal up to 14.3 today, hemoglobin 9.9 which is up a point and platelets are 347, mild left shift. Prothrombin time normal. Blood gases; 7.28, 38, 155, 99%, 17. This with an FiO2 of 80%, CMV 16, PEEP 8. Chemistries with hyponatremia, BUN 54, CO2 is 21, creatinine 2.9, similar to prior values of a week ago. Lactate is low. Calcium low. Transaminases normal. Albumin only 2.4, similar to previous values. Urina
[2020-10-12 15:39] LABS: SARS-CoV-2 RNA PCR Negative
[2020-10-12 17:26] LABS: Glucose Point of Care 84 mg/dl (65-105)
--- NOTE | 2020-10-12 18:19 | PM.IMPN ---
Progress Note: A&P Assessment and Plan (1) Acute renal failure superimposed on stage 4 chronic kidney disease: Code(s): N17.9 - Acute kidney failure, unspecified; N18.4 - Chronic kidney disease, stage 4 (severe) Status: Acute Assessment and Plan: acute renal failure possible component of prerenal given bradycardia and hypotension Renal ultrasound is follows: 1. No left hydronephrosis. Severe right renal atrophy. 2. Indeterminate lesions on CT not identified on this study. Consider follow-up nonemergent kidney ultrasound after patient is extubated, able to position appropriately for nonemergent evaluation of these lesions. continue IV hydration and pressors Strict eyes and (2) Encephalopathy: Code(s): G93.40 - Encephalopathy, unspecified Status: Acute Assessment and Plan: possibly secondary to hypercapnia Now is intubated and sedated Continue to monitor for improvement (3) Septic shock: Code(s): A41.9 - Sepsis, unspecified organism; R65.21 - Severe sepsis with septic shock Status: Acute Assessment and Plan: patient presented with hypotension and bradycardia requiring pressors x2 (Levophed and dopamine); now dopamine has been discontinued and patient is currently on Levophed ICU following Continue to monitor Continue IV vancomycin and cefepime ( day 2), metronidazole added by ID today ID on consult; appreciate recommendations Orthopedics on consult possible intervention; await recommendations Knee x-ray with concerns for tubular osteomyelitis Cellulitis of right lower extremity wound infection noted as well (4) Acute on chronic respiratory failure with hypoxia and hypercapnia: Code(s): J96.21 - Acute and chronic respiratory failure with hypoxia; J96.22 - Acute and chronic respiratory failure with hypercapnia Status: Acute Assessment and Plan: presented with respiratory acidosis and increased lethargy requiring intubation Was also noted to be hypoxic Chest x-ray with possible pulmonary vascular congestion at this time Continue to wean as able Critical care recommendations appreciated (5) UTI (urinary tract infection): Qualifiers: Urinary tract infection type: acute cystitis Hematuria presence: without hematuria Qualified Code(s): N30.00 - Acute cystitis without hematuria Code(s): N39.0 - Urinary tract infection, site not specified Status: Acute Assessment and Plan: patient has Colunga's urine suspicion for infection Urine cultures awaited Id following recommendations appreciated (6) Leg wound, right: Qualifiers: Encounter type: sequela Qualified Code(s): S81.801S - Unspecified open wound, right lower leg, sequela Code(s): S81.801A - Unspecified open wound, right lower leg, initial encounter Status: Acute Assessment and Plan: right lower extremity BKA stump notable for eschar with edema surrounding Also noted to have foul-smelling drainage With purulent material ID on board Orthopedic surgery brought on board as well; possible intervention at some point; appreciate recommendation (7) Bradycardia: Code(s): R00.1 - Bradycardia, unspecified Status: Resolved Assessment and Plan: cardiology following The following recommendations: Bradycardia is multifactorial in the setting of sepsis, polypharmacy including BB (Metoprolol 200 mg daily), CCB (verapamil 240 mg daily), and clonidine as well as possible slow heart rate at baseline (EKG in 2013 showed HR of 57, not sure if was on blocking agents back then) Check 2D echo No acute indication for pacemaker placement treat underlying sepsis as per primary team (8) Acute respiratory acidosis: Code(s): E87.2 - Acidosis Status: Resolved Assessment and Plan: pCO2 noted to be elevated yesterday on arrival Now within normal limits status post intubation Resolved (9) Normal anion gap metabolic
[2020-10-12 19:12] LABS: Add Urine Microscopic? YES; Appearance Urine Cloudy (Clear); Bacteria Urine Trace /hpf; Bilirubin Urine Negative (Negative); Blood Urine 1+ (Negative); Color Urine Yellow (Yellow); Glucose Urine UA Negative (Negative); Ketones Urine Negative (Negative); Leukocyte Esterase Ur 3+ LEU/UL (NEGATIVE); Mucus Urine Rare /lpf; Nitrate Urine Negative (Negative); Protein Urine 2+ mg/dL (Negative); Specific Grav Ur 1.006 (1.001-1.035); Squamous Epithelial Cell Urine Rare /hpf (Few); Urobilinogen Urine Negative mg/dL (<2.0); WBC Clumps Urine Present /HPF; WBC Urine >75 /hpf (0-3)
[2020-10-12] MEDS: ATORVASTATIN 40 MG TABLET PO (20:47)
[2020-10-13] VITALS (31 sets, daily range): BP systolic 103–143; BP diastolic 60–73; PULSE 67–94; RESP 16–32; TEMP 37.2–37.6; O2SAT 97–99
[2020-10-13] MEDS: SODIUM CHLORIDE 0.9% IV 1,000 ML 75 ML IV CONT (00:45)
[2020-10-13] MEDS: VANCOMYCIN ORAL 125 MG/2.5 ML SYRUP PO ×4 (00:46→17:10)
[2020-10-13 01:05] LABS: Glucose Point of Care 80 mg/dl (65-105)
[2020-10-13] MEDS: IPRATROPIUM BR 0.02% INH SOLN 0.5 MG/2.5 ML VIAL INHALATION ×4 (02:26→20:23)
[2020-10-13] MEDS: ALBUTEROL SULFATE NEB 2.5 MG/0.5 ML INH INHALATION ×4 (02:26→20:23)
[2020-10-13] MEDS: PROPOFOL IV EMULSION 100 ML 7.6 MG IV CONT ×2 (04:20→19:00)
[2020-10-13 04:54] LABS: Hematocrit 25.8 % (37.0-47.0); Hemoglobin 7.7 g/dL (12.0-15.0); Mean Corpuscular HGB Conc 29.8 g/dl (32-36); Mean Corpuscular Hemoglobin 28.5 pg (26-34); Mean Corpuscular Volume 95.6 fl (80-100); Mean Platelet Volume 9.8 fl (7.4-10.4); Platelet Count Result 224 k/mm3 (150-375); Red Cell Distribution Width 14.7 % (11.5-14.5); White Blood Count 7.6 K/mm3 (4.5-10.0)
[2020-10-13 05:01] LABS: Lactic Acid Reflex 0.7 mmol/L (0.7-2.1)
[2020-10-13 05:10] LABS: Alanine Aminotransferase 7 U/L (4-35); Albumin Level 1.9 g/dL (3.5-5.1); Alkaline Phosphatase 65 U/L (38-126); Anion Gap 7 mmol/L (8-16); Aspartate Amino Transferase 21 U/L (14-36); Bilirubin,Total 0.2 mg/dL (0.2-1.3); Blood Urea Nitrogen 55 mg/dL (7-17); CRP 7.3 mg/dL (<1.0); Calcium 6.9 mg/dL (8.4-10.2); Carbon Dioxide 17 mmol/L (22-30); Chloride 109 mmol/L (98-107); Estimated CRCL calculation 23 ml/min; Estimated Glomerular Filt Rate 16; Glucose 112 mg/dL (65-105); Magnesium 1.6 mg/dL (1.6-2.3); Phosphorus 4.4 mg/dL (2.5-4.5); Sodium 133 mmol/L (137-145)
[2020-10-13] MEDS: metroNIDAZOLE 500 MG/ISO 100ML 500 MG/100 ML BAG 100 MG IVPB ×3 (05:47→20:52)
[2020-10-13] MEDS: HEPARIN SODIUM 5,000 UNITS/ML VIAL 5000 UNITS SUB-Q ×3 (05:48→20:52)
[2020-10-13] MEDS: CENTRAL LINE FLUSH 10 ML IV PUSH ×4 (05:48→20:53)
[2020-10-13 05:49] LABS: Alveolar/Arterial O2 Gradient 89.3 mmHg; Carboxyhemoglobin 0.2 % THb (0-2.0); Fractional Inspired Oxygen 30 %; HCO3 ABG 17.3 mEq/l (22.0-26.0); Methemoglobin ABG 0.5 %THb (0-1.5); Oxygen Content ABG 13.6 %vol (16.0-22.0); Oxygen Saturation ABG 96.6 % (95.0-100.0); Oxyhemoglobin 95.2 % THb (90.0-100.0); PCO2 ABG 30.8 mmHg (35.0-45.0); PO2 ABG 88.4 mmHg (80.0-100.0); PO2 FiO2 Ratio Arterial Blood 2.95 %; Reduced Hemoglobin 4.1 %THb (0-5.0); Total Hemoglobin 10.1 g/dL (12.0-18.0); pH ABG 7.368 (7.350-7.450)
[2020-10-13] MEDS: LEVOTHYROXINE SODIUM 25 MCG TABLET PO (05:49)
[2020-10-13 05:50] LABS: Arterial Blood Gas Vent Mode CMV; Arterial Blood Gas Ventilator rate 22 /MIN; Device VENTILATOR; Modified Allen's Test Pass; Site Drawn LEFT RADIAL
[2020-10-13 05:51] LABS: Arterial Blood Gas PEEP 8 cmH2O; Arterial Blood Gas Tidal Volume 350 ml
[2020-10-13] MEDS: SODIUM BICARBONATE 8.4% 150 MEQ in DEXTROSE 5% 1,000 ML 950 ML 75 MEQ IV CONT (08:54)
--- NOTE | 2020-10-13 09:20 | WPDINTPN ---
Progress Note: A&P Assessment and Plan (1) Bradycardia: Code(s): R00.1 - Bradycardia, unspecified Status: Resolved Assessment and Plan: RESOLVED patient presented with bradycardia with heart rates in the 30s and 40s in the ER, received atropine and glucagon in the ER. likely thought to be due to a beta-blockers, hypotension and septic versus cardiogenic shock. - PATIENT OF DOPAMINE AND LEVOPHED - heart rate 70s to 90s - cardiology following the patient - continue monitor heart rates closely (2) Septic shock: Code(s): A41.9 - Sepsis, unspecified organism; R65.21 - Severe sepsis with septic shock Status: Acute Assessment and Plan: shock likely related to septic versus cardiogenic patient was hypotensive lactic acid was 0.6, initially dominant white blood white count has increased this morning. - Central line the right IJ, OFF Levophed. will maintain MAP > 65 mmHg for adequate end organ perfusion - lactic acid is normal - 10/11/2020 blood cultures no growth to date x2 - 10/11/2020, urine cultures in progress - 10/11/2020:culture from the right BKA wound Growing rare gram-positive cocci - continue vancomycin IV, cefepime IV, appreciate infectious disease evaluation and recommendation, Flagyl was added - patient also has recent history of C diff colitis she is on p.o. vancomycin and that was continued (3) Respiratory failure: Code(s): J96.90 - Respiratory failure, unspecified, unspecified whether with hypoxia or hypercapnia Status: Acute Assessment and Plan: patient was in acute hypercapnic respiratory failure - given her altered mental status and encephalopathy patient was intubated for airway protection - currently on CMV mode of ventilation, peep of 8 and 30% FiO2, - ABGs and chest x-rays reviewed, switched patient to ASV mode - continue bronchodilators - patient on propofol for sedation (4) UTI (urinary tract infection): Qualifiers: Hematuria presence: without hematuria Urinary tract infection type: acute cystitis Qualified Code(s): N30.00 - Acute cystitis without hematuria Code(s): N39.0 - Urinary tract infection, site not specified Status: Acute Assessment and Plan: urinalysis reflective of possible UTI - continue antibiotics as above - urine culture in progress (5) Leg wound, right: Qualifiers: Encounter type: sequela Qualified Code(s): S81.801S - Unspecified open wound, right lower leg, sequela Code(s): S81.801A - Unspecified open wound, right lower leg, initial encounter Status: Acute Assessment and Plan: right BKA done on 09/30/[address] Curtis, ortho - ortho following closely and managing the right stump wound - x-ray of the knee on 10/11/2020: . Irregularity of the bone margin of the fibular stump, which is indeterminate for osteomyelitis.2. Severe right knee osteoarthritis. 3. Large knee joint effusion with loose bodies. (6) C. difficile colitis: Code(s): A04.72 - Enterocolitis due to Clostridium difficile, not specified as recurrent Status: Acute Assessment and Plan: patient was recently of C diff colitis, continue p.o. vancomycin (7) Encephalopathy: Code(s): G93.40 - Encephalopathy, unspecified Status: Acute Assessment and Plan: RESOLVED encephalopathy much improved this morning, patient is awake, alert, follows simple commands with bilateral upper extremities and left lower extremities as she has a right BKA. - Ammonia levels were within normal limits - CT scan of the brain did not show any acute intracranial abnormality - continue to monitor (8) Diabetes: Code(s): E11.9 - Type 2 diabetes mellitus without complications Status: Acute Assessment and Plan: patient with history of diabetes, continue Accu-Cheks and sliding scale insulin - last hemoglobin A1c on 10/02/2020 was 4.7 (9) Acute renal failure superimposed on
--- NOTE | 2020-10-13 10:33 | PM.PNORT ---
Progress Note: A&P Assessment and Plan (1) Right below-knee amputee: Onset Date: 09/28/20 Code(s): Z89.511 - Acquired absence of right leg below knee Status: Acute Assessment and Plan: Final cultures of the right stump pending. UA consistent with probable UTI. Urine/blood cultures pending. Continue IV antibiotics. Radiographs reveal changes consistent with below-knee amputation, tibial stump demonstrates a sharp margin while there is irregularity of the bone margin of the fibular stump, likely consistent with surgical intervention. Wound care team at bedside for evaluation. Continue Dakins soaked gauze dressing changes BID. Elevate stump. Potential for transition to wound VAC on Friday pending improvement in wound bed appearance with use of Dakins. Subjective Subjective Date/Time Seen: 10/13/20 0830 Patient currently intubated on mechanical ventilation. Awake. Review of Systems Review of Systems: ROS unobtainable: Yes unobtainable due to endotracheal tube and unobtainable due to medical condition Exam Const: General: cooperative, awake and other ( Intubated. ) Nutritional Appearance: obese HENMT: Head: normal to inspection, normocephalic and atraumatic Eyes: Conjunctivae: conjunctivae normal Sclera: sclerae normal Neck: Neck: supple and nontender : General: Yes deferred Urinary Catheter: Urinary Catheter: patent and draining and urine cloudy Extrem: Right lower extremity: hip/thigh Details: normal to inspection, knee Details: normal to inspection; no tenderness and lower leg (Below-knee amputation.) Left lower extremity: hip/thigh Details: normal to inspection, knee Details: abnormal ROM ( range of motion deferred secondary to fracture), ankle (no calf tenderness) Details: normal to inspection, abnormal ROM Details: with range as follows ( Minimal range of motion ankle and hindfoot secondary to fusion); no pain with active ROM and no pain with passive ROM and other ( good capillary refill in toes, 2+ DP pulse, light touch sensation intact); no tenderness ( lateral malleolus, anterior ankle and medial ankle) and no swelling ( moderate anterior ankle, moderate lateral ankle) and foot Details: normal capillary refill, toes with normal ROM, vascular exam Details: dorsalis pedis pulse present and normal capillary refill, tendon exam active flexion normal and active extension normal and motor-sensory exam two point discrimination normal and light-touch normal; no tenderness Other: Some approximation of the incision at the mid portion. 75% wound dehiscence with necrotic subcutaneous tissue surrounding. Remaining emy from the lateral aspect removed. Wound dehiscence with necrosis, tunneling and moderate serosanguineous drainage. Some red/pink tissue in wound bed noted. Still with notable necrosis. Improvement in appearance/viability of tissue in the more proximal aspect of the tibia noted. Inability to probe to bone. Dressing changed. Objective Data Vital Signs Vital Signs: Vital Signs - 24 hr 10/12/20 11:00 10/12/20 12:00 10/12/20 13:36 Temperature 37.4 C Pulse Rate 65 62 69 Respiratory Rate 16 22 H Blood Pressure 111/71 Pulse Oximetry 100 100 100 10/12/20 13:47 10/12/20 14:00 10/12/20 16:00 Temperature 37.4 C 37.4 C Pulse Rate 71 69 76 Respiratory Rate 22 H 16 16 Blood Pressure 128/72 126/65 Pulse Oximetry 100 96 10/12/20 16:57 10/12/20 18:00 10/12/20 20:00 Temperature 37.4 C Pulse Rate 68 71 69 Respiratory Rate 16 Blood Pressure 131/75 Pulse Oximetry 96 98 10/12/20 20:01 10/12/20 21:12 10/12/20 21:22 Temperature 37.6 C Pulse Rate 67 79 81 Respiratory Rate 22 H 28 H 26 H Blood Pressure 118/70 Pulse Oximetry 99 98 10/12/20 22:00 10/12/20 22:01 10/12/20 23:20 Temperature 37.5 C Pulse Rate 70 70 65 Respiratory Rate 22 H Blood Pressure 104/64 Pulse Oximetry 99 99 10/12/20 23:55 10/13/20 00:00 10/13/20 02:00 Temperature 37.4 C
[2020-10-13] MEDS: SOD HYPOCHLORITE 1/4 STRENGTH 473 ML 1 APPLIC TOPICAL ×2 (11:15→20:53)
[2020-10-13] MEDS: MINERAL OIL/WHITE PETROLATUM OINTMENT 1 APPLIC EACH EYE ×2 (11:15→20:53)
--- NOTE | 2020-10-13 11:18 | PCNFU ---
Nutrition Follow-Up Complete: Inadequate oral intake related to oral intubation/mechanical ventilation as evidenced by NPO status. Goal: Patient to meet estimated nutritional needs. Pt current nutrition is Nepro at 40 ml/hour over 22 hours per day with a 30 ml water flush Q4 providing patient with a total of 1,584 calories, 71 grams of protein, and 819 ml of water. Last recorded weight is 134.8 kg. Bowel Motility: No bowel movement recorded. Labs Reviewed: Hgb 7.7, Hct 25.8, Alb 1.9, Na 133, GFR 16, BUN 55, Cr 3, Glu 112, Ca 6.9 Meds Noted: Lipitor, Albuterol, Heparin Sodium, Novolog, Atrovent Neb, Synthroid, Propofol (rate of 7.6 ml/hour providing an additional 200 kcal/day), Vancomycin Hcl Additional Notes: Patient is doing excellent according to the doctor. Patient is following commands and tolerating tube feeding well with little to no residuals. Patient does have a right BKA. Follow up every Friday/Friday. Follow daily in ICU rounds.
[2020-10-13] MEDS: PANTOPRAZOLE SODIUM IV 40 MG VIAL IV PUSH (11:48)
--- NOTE | 2020-10-13 11:55 | PM.CNNEP ---
Assessment and Plan Assessment and plan (1) Chronic kidney disease, stage 4 (severe): Code(s): N18.4 - Chronic kidney disease, stage 4 (severe) Status: Acute Assessment and Plan: The patient has chronic kidney disease. Her creatinine has been gradually rising over the years. It is been stable at around 3. This might just be her chronic baseline. Her CKD is most likely due to diabetes hypertension and vascular disease she sees a lavatory attendant as an outpatient. She could have some element of acute kidney injury Her creatinine has been a little higher this year than it was last year. The higher creatinine may have been due to wounds festering on that ankle that is now gone. Now the creatinine is still high possibly because of the septic shock etc. She had an ultrasound done showing severe right renal atrophy but no hydronephrosis on the left. Will check urine electrolytes and eosinophils. She is not on any medications that would be a problem. (2) Metabolic acidosis: Code(s): E87.2 - Acidosis Status: Acute Assessment and Plan: her bicarbonate level was mildly low throughout the 1st hospitalization. Before that her bicarbonate has been intermittently low. Her anion gap has never been elevated. This could be type 4 RTA from her diabetes. Her bicarbonate level was normal on admission here. Perhaps this was a superimposed metabolic alkalosis from her dehydration when she was admitted. Now she has been getting hydrated she has been diluted back to where she was. the other issue the complicates this is that she had respiratory acidosis on admission with CO2 retention. If she has chronic CO2 retention then it would be good to have her serum bicarb higher. So she is on a bicarb drip in we can switch her to bicarb tablets once we get into a maintenance situation. (3) On mechanically assisted ventilation: Code(s): Z99.11 - Dependence on respirator [ventilator] status Status: Acute Assessment and Plan: Patient is on the ventilator now. (4) Septic shock: Code(s): A41.9 - Sepsis, unspecified organism; R65.21 - Severe sepsis with septic shock Status: Acute Assessment and Plan: The patient was just weaned off the Levophed. She is on broad-spectrum antibiotics. Cultures are all pending. (5) Hypertension: Qualifiers: Hypertension type: essential hypertension Qualified Code(s): I10 - Essential (primary) hypertension Code(s): I10 - Essential (primary) hypertension Status: Acute Assessment and Plan: She had hypertension and was on antihypertensives at home. Eventually will hold these back in once the blood pressure gets better. (6) Anemia: Code(s): D64.9 - Anemia, unspecified Status: Acute Assessment and Plan: Hemoglobin is only 7.7. Will initiate Epogen. No need to check iron is because she has an active infection. (7) Bradycardia: Code(s): R00.1 - Bradycardia, unspecified Status: Resolved Assessment and Plan: Resolved (8) C. difficile colitis: Code(s): A04.72 - Enterocolitis due to Clostridium difficile, not specified as recurrent Status: Acute (9) Type 2 diabetes mellitus: Qualifiers: Diabetes mellitus termination clerk insulin use: without termination clerk use Diabetes mellitus complication status: with kidney complications Diabetes mellitus complication detail: with chronic kidney disease Chronic kidney disease stage: stage 4 (severe) Qualified Code(s): E11.22 - Type 2 diabetes mellitus with diabetic chronic kidney disease; N18.4 - Chronic kidney disease, stage 4 (severe) Code(s): E11.9 - Type 2 diabetes mellitus without complications Status: Acute (10) Hypercholesterolemia: Code(s): E78.00 - Pure hypercholesterolemia, unspecified Status: Acute History of Present Illness Reason for Consult Consult date: 10/13
[2020-10-13 12:05] LABS: Glucose Point of Care 120 mg/dl (65-105)
--- NOTE | 2020-10-13 14:56 | WPDINFPN2 ---
Progress Note: A&P Assessment and Plan (1) Septic shock: Code(s): A41.9 - Sepsis, unspecified organism; R65.21 - Severe sepsis with septic shock Status: Acute Assessment and Plan: 1. Septic shock, consider C diff infection with colitis, R BKA stump infection, or other subtle sources. No new data to elucidate precise etiology 2. BKA 09/28 3. Left hip and knee prosthetic joints 4. CRI, cr stable 5. Indwelling Colunga, strongly doubt UTI REC Cefepime and Vanc IV #3, oral vanc #8, metronidazole #2. F/U micro. PharmD dosing Vanc for target trough 10-15. Dr. Curtis following for any needed surgical intervention. Subjective Date/time seen: 10/13/20 14:56 Interval history: lightly sedated, norepi stable at 3 mcg. Exam Narrative: Exam Narrative: afebrile Const: General: no acute distress Other: morbid obesity Resp: Effort & Inspection: normal respiratory effort Auscultation: clear to auscultation bilaterally and lung sounds not diminished Cardio: Rate: regular rate Rhythm: regular rhythm Heart sounds: no murmurs GI: Inspection: distended GI Palp: Yes Soft to palpation, No Tenderness to palpation present (GI) and No Guarding due to palpation present (GI) Auscultation: normal bowel sounds Skin: General skin exam: normal color and no rashes or lesions noted Objective Data Vital Signs Vital Signs: Vital Signs - 24 hr 10/12/20 16:00 10/12/20 16:57 10/12/20 18:00 Temperature 37.4 C 37.4 C Pulse Rate 76 68 71 Respiratory Rate 16 16 Blood Pressure 126/65 131/75 Pulse Oximetry 96 96 98 10/12/20 20:00 10/12/20 20:01 10/12/20 21:12 Temperature 37.6 C Pulse Rate 69 67 79 Respiratory Rate 22 H 28 H Blood Pressure 118/70 Pulse Oximetry 99 98 10/12/20 21:22 10/12/20 22:00 10/12/20 22:01 Temperature 37.5 C Pulse Rate 81 70 70 Respiratory Rate 26 H 22 H Blood Pressure 104/64 Pulse Oximetry 99 10/12/20 23:20 10/12/20 23:55 10/13/20 00:00 Temperature 37.4 C Pulse Rate 65 67 Respiratory Rate 22 H Blood Pressure 103/60 Pulse Oximetry 99 99 99 10/13/20 02:00 10/13/20 02:01 10/13/20 02:26 Temperature 37.3 C Pulse Rate 73 71 71 Respiratory Rate 29 H 27 H Blood Pressure 103/64 Pulse Oximetry 99 10/13/20 02:27 10/13/20 04:00 10/13/20 05:18 Temperature 37.2 C Pulse Rate 71 73 72 Respiratory Rate 22 H Blood Pressure 136/65 Pulse Oximetry 99 97 97 10/13/20 06:00 10/13/20 08:00 10/13/20 08:21 Temperature 37.3 C Pulse Rate 78 76 79 Respiratory Rate 27 H 30 H 16 Blood Pressure 143/71 H 130/70 Pulse Oximetry 98 97 10/13/20 08:27 10/13/20 08:33 10/13/20 10:00 Temperature Pulse Rate 72 82 81 Respiratory Rate 25 H 24 H Blood Pressure 120/73 Pulse Oximetry 97 97 10/13/20 11:22 10/13/20 12:00 10/13/20 13:30 Temperature 37.4 C Pulse Rate 89 89 82 Respiratory Rate 22 H 32 H Blood Pressure 137/73 Pulse Oximetry 99 97 10/13/20 13:35 10/13/20 13:39 Temperature Pulse Rate 90 90 Respiratory Rate 30 H Blood Pressure Pulse Oximetry 98 Intake/Output Intake/Output: Intake & Output 10/10/20 10/11/20 10/12/20 10/13/20 23:59 23:59 23:59 23:59 Intake Total 5150 776 2179 Output Total 200 975 675 Balance 4950 -199 1504 Meds/Results Medications: Active Medications Generic Name Dose Route Start Last Admin Trade Name Freq PRN Reason Stop Dose Admin Albuterol 2.5 mg 10/12/20 14:00 10/13/20 13:30 Albuterol Sulfate Neb 2.5 Mg/0.5 Ml Inh INHALATION 2.5 mg Q6HRT ERJI Administration Atorvastatin Calcium 40 mg 10/11/20 21:00 10/12/20 20:47 Atorvastatin 40 Mg Tablet PO 40 mg HS REJI Administration Dextrose 12.5 gm 10/11/20 15:56 Dextrose 50% 25 Gm/50 Ml Syringe IV PUSH PRN PRN Hypoglycemia Protocol Epoetin Gregory-epbx 10,000 units 10/13/20 12:30 Epoetin Gregory-Epbx 10,000 Units/Ml Vial SUB-Q [facility]OWEFR [facility] Glucagon 1 mg 10/11/20 15:56 Glucagon For Inj 1
[2020-10-13 16:07] LABS: Immature Reticulocyte Fraction 13.7 % (3.0-15.9); Reticulocytes Absolute 0.04 B/L (32.2-175.7)
[2020-10-13 16:15] LABS: Creatine Kinase < 20 U/L (30-135)
[2020-10-13 16:17] LABS: Sodium Urine Random 17 meq/L
[2020-10-13 16:28] LABS: Creatinine Urine 34.5 mg/dL
[2020-10-13 16:44] LABS: Total Protein Urine Random 264 mg/dL; Ur Ttl Prot Creatinine Ratio 7.65 mg/mg (0-0.20)
--- NOTE | 2020-10-13 16:47 | PM.PNCARD ---
Progress Note: A&P Assessment and Plan (1) Bradycardia: Code(s): R00.1 - Bradycardia, unspecified Status: Resolved Assessment and Plan: initial EKG showed sinus bradycardia 44 bpm Heart rate better now up to 70-80s. Off transcutaneous pacing Weaned off dopamine already. Bradycardia was multifactorial in the setting of sepsis, polypharmacy including BB (Metoprolol 200 mg daily), CCB (verapamil 240 mg daily), and clonidine as well as possible slow heart rate at baseline (EKG in 2013 showed HR of 57, not sure if was on blocking agents back then) Check 2D echo No acute indication for pacemaker placement treat underlying sepsis as per primary team (2) Right below-knee amputee: Onset Date: 09/28/20 Code(s): Z89.511 - Acquired absence of right leg below knee Status: Acute Assessment and Plan: Complicated with infection. Management per surgery (3) Chronic kidney disease (CKD) stage G4/A1, severely decreased glomerular filtration rate (GFR) between 15-29 mL/min/1.73 square meter and albuminuria creatinine ratio less than 30 mg/g: Code(s): N18.4 - Chronic kidney disease, stage 4 (severe) Status: Acute Assessment and Plan: Creatinine close to baseline (4) Hypertension: Qualifiers: Hypertension type: essential hypertension Qualified Code(s): I10 - Essential (primary) hypertension Code(s): I10 - Essential (primary) hypertension Status: Acute Assessment and Plan: Hypotensive on admission in the setting of sepsis. Now BP high. Avoid blocking agents for now. May consider resume BB at lower dose eventually. (5) Type 2 diabetes mellitus: Qualifiers: Chronic kidney disease stage: stage 4 (severe) Diabetes mellitus complication detail: with chronic kidney disease Diabetes mellitus complication status: with kidney complications Diabetes mellitus computer terminal operator insulin use: without longterm use Qualified Code(s): E11.22 - Type 2 diabetes mellitus with diabetic chronic kidney disease; N18.4 - Chronic kidney disease, stage 4 (severe) Code(s): E11.9 - Type 2 diabetes mellitus without complications Status: Acute Assessment and Plan: Management as per primary service. (6) Obesity: Code(s): E66.9 - Obesity, unspecified Status: Acute Assessment and Plan: 20 lb weight loss needed in the coming months. Subjective Date/time seen: 10/13/20 16:47 Interval history: Patient is lightly sedated in the ICU. She is intubated. She denies chest pain or dyspnea. She is being treated for osteomyelitis involving her right leg amputation stump and for urinary tract infection. She is no longer on dopamine or norepinephrine. Patient was seen and examined, chart reviewed, case discussed with nurse. Exam Narrative: Exam Narrative: Morbidly obese. S/p right BKA. Sedated on the vent Const: General: acute distress and confusion Nutritional Appearance: obese Orientation/consciousness: confusion Limitations: altered mental status HENMT: Head: normal to inspection and atraumatic Face and sinus: normal facial exam Eyes: General: appearance normal, both eyes and all related structures Pupils: Equal, round and reactive pupils present EOM: EOMs intact bilaterally Neck: Neck: normal visual inspection and no JVD Chest: Chest palpation & inspection: normal inspection of the chest Resp: Effort & Inspection: normal respiratory effort and no respiratory distress Auscultation: diminished lung sounds Cardio: Jugular venous distension: no JVD Rate: regular rate Heart sounds: S1 normal heart sound present, S2 normal heart sound present and no murmurs GI: Inspection: normal to inspection Auscultation: normal bowel sounds Skin: General skin exam: pallor Neuro: General: confusion Cranial nerves: Yes Equal, round and reactive pupils present Extrem: General: amputation noted (R BKA covered with dressing) Below t
[2020-10-13] MEDS: EPOETIN ALFA-EPBX 10,000 UNITS/ML VIAL 10000 UNITS SUB-Q (17:06)
--- NOTE | 2020-10-13 17:16 | PM.IMPN ---
Progress Note: A&P Assessment and Plan (1) Neutrophilic leukocytosis: Code(s): D72.9 - Disorder of white blood cells, unspecified Status: Acute (2) Acute osteomyelitis of fibula: Code(s): M86.169 - Other acute osteomyelitis, unspecified tibia and fibula Status: Acute (3) Infection of right below knee amputation: Code(s): T87.43 - Infection of amputation stump, right lower extremity Status: Acute (4) Hx of right BKA: Code(s): Z89.511 - Acquired absence of right leg below knee Status: Acute (5) Protein-calorie malnutrition, moderate: Code(s): E44.0 - Moderate protein-calorie malnutrition Status: Acute (6) D-dimer, elevated: Code(s): R79.89 - Other specified abnormal findings of blood chemistry Status: Acute (7) Normal anion gap metabolic acidosis: Code(s): E87.2 - Acidosis Status: Acute (8) Acute respiratory acidosis: Code(s): E87.2 - Acidosis Status: Resolved (9) Acute on chronic respiratory failure with hypoxia and hypercapnia: Code(s): J96.21 - Acute and chronic respiratory failure with hypoxia; J96.22 - Acute and chronic respiratory failure with hypercapnia Status: Acute (10) Acute renal failure superimposed on stage 4 chronic kidney disease: Qualifiers: Acute renal failure type: unspecified Qualified Code(s): N17.9 - Acute kidney failure, unspecified; N18.4 - Chronic kidney disease, stage 4 (severe) Code(s): N17.9 - Acute kidney failure, unspecified; N18.4 - Chronic kidney disease, stage 4 (severe) Status: Acute (11) Encephalopathy: Code(s): G93.40 - Encephalopathy, unspecified Status: Resolved (12) Septic shock: Code(s): A41.9 - Sepsis, unspecified organism; R65.21 - Severe sepsis with septic shock Status: Acute (13) Acute hypotension: Code(s): I95.9 - Hypotension, unspecified Status: Resolved (14) Bradycardia: Code(s): R00.1 - Bradycardia, unspecified Status: Resolved (15) C. difficile colitis: Code(s): A04.72 - Enterocolitis due to Clostridium difficile, not specified as recurrent Status: Acute (16) Hypertension: Qualifiers: Hypertension type: essential hypertension Qualified Code(s): I10 - Essential (primary) hypertension Code(s): I10 - Essential (primary) hypertension Status: Acute (17) Type 2 diabetes mellitus: Qualifiers: Diabetes mellitus prison insulin use: without terminal manager use Diabetes mellitus complication status: with kidney complications Diabetes mellitus complication detail: with chronic kidney disease Chronic kidney disease stage: stage 4 (severe) Qualified Code(s): E11.22 - Type 2 diabetes mellitus with diabetic chronic kidney disease; N18.4 - Chronic kidney disease, stage 4 (severe) Code(s): E11.9 - Type 2 diabetes mellitus without complications Status: Acute (18) Hypothyroidism: Qualifiers: Hypothyroidism type: acquired Qualified Code(s): E03.9 - Hypothyroidism, unspecified Code(s): E03.9 - Hypothyroidism, unspecified Status: Acute (19) Morbid obesity with BMI of 40.0-44.9, adult: Code(s): E66.01 - Morbid (severe) obesity due to excess calories; Z68.41 - Body mass index [BMI]40.0-44.9, adult Status: Acute Subjective Date/time seen: 10/13/20 17:16 Interval history: 64-year-old female with past medical history significant for hypertension, hyperlipidemia, type 2 diabetes mellitus, CKD stage 3, history of C diff colitis on previous admission, status post right BKA (complicated with stump infection) and hypothyroidism presented to the ED with altered mental status, bradycardia and hypotension. Patient was managed as a case of acute hypoxic and hypercapnic respiratory failure with inability to maintain her airways, medication induced bradycardia, sepsis secondary to infected stump wound and SARAH on CKD.
--- NOTE | 2020-10-13 19:00 | PC.NURSE ---
Propofol infusing at this time. Bottle was not scanned in by dayshift RN. Administered by this RN at start of shift.
[2020-10-13 19:35] LABS: Eosinophil Urine None Seen % (None Seen)
[2020-10-13] MEDS: ATORVASTATIN 40 MG TABLET PO (20:53)
[2020-10-14] VITALS (28 sets, daily range): BP systolic 131–174; BP diastolic 54–79; PULSE 72–100; RESP 14–32; TEMP 36.8–37.6; O2SAT 92–100
[2020-10-14] MEDS: SODIUM BICARBONATE 8.4% 150 MEQ in DEXTROSE 5% 1,000 ML 950 ML 75 MEQ IV CONT ×2 (00:43→15:25)
[2020-10-14] MEDS: VANCOMYCIN ORAL 125 MG/2.5 ML SYRUP PO ×4 (00:44→18:13)
[2020-10-14 00:57] LABS: Glucose Point of Care 123 mg/dl (65-105)
[2020-10-14] MEDS: IPRATROPIUM BR 0.02% INH SOLN 0.5 MG/2.5 ML VIAL INHALATION ×4 (02:15→22:15)
[2020-10-14] MEDS: ALBUTEROL SULFATE NEB 2.5 MG/0.5 ML INH INHALATION ×4 (02:15→22:16)
[2020-10-14] MEDS: PROPOFOL IV EMULSION 100 ML 7.6 MG IV CONT (04:09)
[2020-10-14 04:13] LABS: Alveolar/Arterial O2 Gradient 99.3 mmHg; Base Excess ABG -4.8 mEq/l (+/-2.0); Carboxyhemoglobin 0.3 % THb (0-2.0); Fractional Inspired Oxygen 30 %; HCO3 ABG 19.5 mEq/l (22.0-26.0); Methemoglobin ABG 0.7 %THb (0-1.5); Oxygen Content ABG 11.5 %vol (16.0-22.0); Oxygen Saturation ABG 95.4 % (95.0-100.0); Oxyhemoglobin 93.3 % THb (90.0-100.0); PCO2 ABG 32.5 mmHg (35.0-45.0); PO2 ABG 76.4 mmHg (80.0-100.0); PO2 FiO2 Ratio Arterial Blood 2.55 %; Reduced Hemoglobin 5.7 %THb (0-5.0); Total Hemoglobin 8.7 g/dL (12.0-18.0); pH ABG 7.395 (7.350-7.450)
[2020-10-14 04:14] LABS: Device VENTILATOR; Modified Allen's Test Pass; Site Drawn RIGHT RADIAL
[2020-10-14 04:15] LABS: Arterial Blood Gas PEEP 8 cmH2O; Arterial Blood Gas Vent Mode ASV
[2020-10-14] MEDS: metroNIDAZOLE 500 MG/ISO 100ML 500 MG/100 ML BAG 100 MG IVPB ×3 (06:42→21:39)
[2020-10-14] MEDS: HEPARIN SODIUM 5,000 UNITS/ML VIAL 5000 UNITS SUB-Q ×3 (06:42→21:39)
[2020-10-14] MEDS: CENTRAL LINE FLUSH 10 ML IV PUSH ×4 (06:42→21:40)
[2020-10-14] MEDS: LEVOTHYROXINE SODIUM 25 MCG TABLET PO (06:43)
[2020-10-14 07:00] LABS: Hematocrit 25.6 % (37.0-47.0); Hemoglobin 7.8 g/dL (12.0-15.0); Mean Corpuscular HGB Conc 30.5 g/dl (32-36); Mean Corpuscular Hemoglobin 28.3 pg (26-34); Mean Corpuscular Volume 92.8 fl (80-100); Mean Platelet Volume 10.1 fl (7.4-10.4); Platelet Count Result 232 k/mm3 (150-375); Red Blood Count 2.76 M/mm3 (4.2-5.4); Red Cell Distribution Width 14.7 % (11.5-14.5)
[2020-10-14 07:14] LABS: Alanine Aminotransferase 8 U/L (4-35); Albumin Level 1.9 g/dL (3.5-5.1); Alkaline Phosphatase 61 U/L (38-126); Anion Gap 5 mmol/L (8-16); Aspartate Amino Transferase 16 U/L (14-36); Bilirubin,Total < 0.1 mg/dL (0.2-1.3); Blood Urea Nitrogen 58 mg/dL (7-17); Carbon Dioxide 21 mmol/L (22-30); Chloride 109 mmol/L (98-107); Estimated CRCL calculation 25 ml/min; Estimated Glomerular Filt Rate 17; Glucose 143 mg/dL (65-105); Magnesium 1.6 mg/dL (1.6-2.3); Phosphorus 4.3 mg/dL (2.5-4.5); Potassium 3.9 mmol/L (3.4-5.0); Sodium 135 mmol/L (137-145)
--- NOTE | 2020-10-14 09:03 | PM.PNNEP ---
Progress Note: A&P Assessment and Plan (1) Chronic kidney disease, stage 4 (severe): Code(s): N18.4 - Chronic kidney disease, stage 4 (severe) Status: Acute Assessment and Plan: The patient has chronic kidney disease. Her creatinine has been gradually rising over the years. It is been stable at around 3. This might just be her chronic baseline. Her CKD is most likely due to diabetes hypertension and vascular disease She could have some element of acute kidney injury urine electrolytes are non pre renal. Urine eosinophils are negative UA shows infection ultrasound shows severe right renal atrophy. Left kidney looks okay. Creatinine is 2.8 today. (2) Metabolic acidosis: Code(s): E87.2 - Acidosis Status: Acute Assessment and Plan: her bicarbonate level was mildly low throughout the 1st hospitalization. Before that her bicarbonate has been intermittently low. Her anion gap has never been elevated. This could be type 4 RTA from her diabetes. Bicarbonate level is up to 21. Will continue the bicarb drip. Once she is able to we could switch her to bicarb tablets. (3) On mechanically assisted ventilation: Code(s): Z99.11 - Dependence on respirator [ventilator] status Status: Acute Assessment and Plan: Patient is on the ventilator now. FiO2 only 30%. (4) Septic shock: Code(s): A41.9 - Sepsis, unspecified organism; R65.21 - Severe sepsis with septic shock Status: Acute Assessment and Plan: The patient was just weaned off the Levophed. She is on broad-spectrum antibiotics. Blood cultures negative so far. E coli grew in the urine. Sensitivities pending. (5) Hypertension: Qualifiers: Hypertension type: essential hypertension Qualified Code(s): I10 - Essential (primary) hypertension Code(s): I10 - Essential (primary) hypertension Status: Acute Assessment and Plan: She is off antihypertensives because of the hypotension from the Beginning of the hospitalization. blood pressure is starting to get up into the 150s now will fold in blood pressure meds as needed (6) Anemia: Code(s): D64.9 - Anemia, unspecified Status: Acute Assessment and Plan: Hemoglobin is only 7.8. On EPO (7) Bradycardia: Code(s): R00.1 - Bradycardia, unspecified Status: Resolved Assessment and Plan: Resolved (8) C. difficile colitis: Code(s): A04.72 - Enterocolitis due to Clostridium difficile, not specified as recurrent Status: Acute (9) Type 2 diabetes mellitus: Qualifiers: Diabetes mellitus termite inspector insulin use: without termite inspector use Diabetes mellitus complication status: with kidney complications Diabetes mellitus complication detail: with chronic kidney disease Chronic kidney disease stage: stage 4 (severe) Qualified Code(s): E11.22 - Type 2 diabetes mellitus with diabetic chronic kidney disease; N18.4 - Chronic kidney disease, stage 4 (severe) Code(s): E11.9 - Type 2 diabetes mellitus without complications Status: Acute Assessment and Plan: on Accu-Cheks and sliding-scale insulin (10) Hypercholesterolemia: Code(s): E78.00 - Pure hypercholesterolemia, unspecified Status: Acute Subjective Date/time seen: 10/14/20 09:03 Interval history: patient is awake and on the ventilator. Denies chest pain. No shortness of breath. Belly is okay. Review of Systems Cardiovascular: Cardiovascular: Reports no additional cardiovascular complaints Respiratory: Respiratory: Reports no additional respiratory complaints Gastrointestinal: Gastrointestinal: Reports no additional gastrointestinal complaints Genitourinary: Genitourinary: Reports no additional female genitourinary complaints Exam Narrative: Exam Narrative: WDWN female in NAD On the ventilator skin no rash
--- NOTE | 2020-10-14 09:28 | WPDINTPN ---
Progress Note: A&P Assessment and Plan (1) Bradycardia: Code(s): R00.1 - Bradycardia, unspecified Status: Resolved Assessment and Plan: RESOLVED patient presented with bradycardia with heart rates in the 30s and 40s in the ER, received atropine and glucagon in the ER. likely thought to be due to a beta-blockers, hypotension and septic versus cardiogenic shock. - PATIENT OFF DOPAMINE AND LEVOPHED - heart rate 70s to 90s - cardiology following the patient - continue monitor heart rates closely (2) Septic shock: Code(s): A41.9 - Sepsis, unspecified organism; R65.21 - Severe sepsis with septic shock Status: Acute Assessment and Plan: shock likely related to septic versus cardiogenic patient was hypotensive lactic acid was 0.6, initially dominant white blood white count has increased this morning. - Central line the right IJ, OFF Levophed. will maintain MAP > 65 mmHg for adequate end organ perfusion - lactic acid is normal - 10/11/2020 blood cultures GRAM-POSITIVE COCCI IN CLUSTERS 1/2 BOTTLES - 10/11/2020, E COLI, SENSITIVITIES PENDING - 10/11/2020:culture from the right BKA wound Growing rare gram-positive cocci - continue vancomycin IV, cefepime IV and Flagyl IV, appreciate infectious disease evaluation and recommendation, - patient also has recent history of C diff colitis she is on p.o. vancomycin and that was continued (3) Respiratory failure: Code(s): J96.90 - Respiratory failure, unspecified, unspecified whether with hypoxia or hypercapnia Status: Acute Assessment and Plan: patient was in acute hypercapnic respiratory failure - given her altered mental status and encephalopathy patient was intubated for airway protection - currently on ASV mode of ventilation, peep of 8 and 30% FiO2, - ABGs and chest x-rays reviewed, s - will diurese patient - will turn of sedation, place patient on SBT and evaluate for extubation - continue bronchodilators (4) UTI (urinary tract infection): Qualifiers: Hematuria presence: without hematuria Urinary tract infection type: acute cystitis Qualified Code(s): N30.00 - Acute cystitis without hematuria Code(s): N39.0 - Urinary tract infection, site not specified Status: Acute Assessment and Plan: urinalysis reflective of possible UTI - continue antibiotics as above - urine culture growing E coli (5) Leg wound, right: Qualifiers: Encounter type: sequela Qualified Code(s): S81.801S - Unspecified open wound, right lower leg, sequela Code(s): S81.801A - Unspecified open wound, right lower leg, initial encounter Status: Acute Assessment and Plan: right BKA done on 09/30/[address] Curtis, ortho - ortho following closely and managing the right stump wound - x-ray of the knee on 10/11/2020: . Irregularity of the bone margin of the fibular stump, which is indeterminate for osteomyelitis.2. Severe right knee osteoarthritis. 3. Large knee joint effusion with loose bodies. (6) C. difficile colitis: Code(s): A04.72 - Enterocolitis due to Clostridium difficile, not specified as recurrent Status: Acute Assessment and Plan: patient was recently of C diff colitis, continue p.o. vancomycin (7) Encephalopathy: Code(s): G93.40 - Encephalopathy, unspecified Status: Resolved Assessment and Plan: RESOLVED encephalopathy much improved this morning, patient is awake, alert, follows simple commands with bilateral upper extremities and left lower extremities as she has a right BKA. - Ammonia levels were within normal limits - CT scan of the brain did not show any acute intracranial abnormality - continue to monitor (8) Diabetes: Code(s): E11.9 - Type 2 diabetes mellitus without complications Status: Acute Assessment and Plan: patient with history of diabetes, continue Accu-Cheks and sliding scale insulin - last hemo
[2020-10-14] MEDS: FUROSEMIDE INJ 40 MG/4 ML VIAL IV PUSH (09:30)
[2020-10-14] MEDS: PANTOPRAZOLE SODIUM IV 40 MG VIAL IV PUSH (09:31)
[2020-10-14] MEDS: MINERAL OIL/WHITE PETROLATUM OINTMENT 1 APPLIC EACH EYE (09:31)
[2020-10-14] MEDS: SOD HYPOCHLORITE 1/4 STRENGTH 473 ML 1 APPLIC TOPICAL ×2 (09:32→20:02)
--- NOTE | 2020-10-14 10:23 | PM.PNCARD ---
Progress Note: A&P Assessment and Plan (1) Bradycardia: Code(s): R00.1 - Bradycardia, unspecified Status: Resolved Assessment and Plan: initial EKG showed sinus bradycardia 44 bpm Heart rate better now up to 70-80s. Off transcutaneous pacing Weaned off dopamine already. Bradycardia was multifactorial in the setting of sepsis, polypharmacy including BB (Metoprolol 200 mg daily), CCB (verapamil 240 mg daily), and clonidine as well as possible slow heart rate at baseline (EKG in 2013 showed HR of 57, not sure if was on blocking agents back then) No acute indication for pacemaker placement treat underlying sepsis as per primary team (2) Right below-knee amputee: Onset Date: 09/28/20 Code(s): Z89.511 - Acquired absence of right leg below knee Status: Acute Assessment and Plan: Complicated with infection. Management per surgery (3) Chronic kidney disease (CKD) stage G4/A1, severely decreased glomerular filtration rate (GFR) between 15-29 mL/min/1.73 square meter and albuminuria creatinine ratio less than 30 mg/g: Code(s): N18.4 - Chronic kidney disease, stage 4 (severe) Status: Acute Assessment and Plan: Creatinine close to baseline (4) Hypertension: Qualifiers: Hypertension type: essential hypertension Qualified Code(s): I10 - Essential (primary) hypertension Code(s): I10 - Essential (primary) hypertension Status: Acute Assessment and Plan: Hypotensive on admission in the setting of sepsis. Now BP high. Avoid blocking agents for now. May consider resume BB at lower dose eventually. (5) Type 2 diabetes mellitus: Qualifiers: Diabetes mellitus salvage determiner insulin use: without fdc use Diabetes mellitus complication status: with kidney complications Diabetes mellitus complication detail: with chronic kidney disease Chronic kidney disease stage: stage 4 (severe) Qualified Code(s): E11.22 - Type 2 diabetes mellitus with diabetic chronic kidney disease; N18.4 - Chronic kidney disease, stage 4 (severe) Code(s): E11.9 - Type 2 diabetes mellitus without complications Status: Acute Assessment and Plan: Management as per primary service. (6) Obesity: Code(s): E66.9 - Obesity, unspecified Status: Acute Assessment and Plan: 20 lb weight loss needed in the coming months. Subjective Date/time seen: 10/14/20 10:23 still on the vent ventilated sedated, not in acute distress, on the monitor she is in sinus rhythm Exam Narrative: Exam Narrative: Morbidly obese. S/p right BKA. Sedated on the vent Const: General: acute distress and confusion Nutritional Appearance: obese Orientation/consciousness: confusion Limitations: altered mental status HENMT: Head: normal to inspection and atraumatic Face and sinus: normal facial exam Eyes: General: appearance normal, both eyes and all related structures Pupils: Equal, round and reactive pupils present EOM: EOMs intact bilaterally Neck: Neck: normal visual inspection and no JVD Chest: Chest palpation & inspection: normal inspection of the chest Resp: Effort & Inspection: normal respiratory effort and no respiratory distress Auscultation: diminished lung sounds Cardio: Jugular venous distension: no JVD Rate: regular rate Heart sounds: S1 normal heart sound present, S2 normal heart sound present and no murmurs GI: Inspection: normal to inspection Auscultation: normal bowel sounds Skin: General skin exam: pallor Neuro: General: confusion Cranial nerves: Yes Equal, round and reactive pupils present Extrem: General: amputation noted (R BKA covered with dressing) Below the knee: right Objective Data Vital Signs Vital Signs: Vital Signs - 24 hr 10/13/20 11:22 10/13/20 12:00 10/13/20 13:30 Temperature 37.4 C Pulse Rate 89 89 82 Respiratory Rate 22 H 32 H Blood Pressure 137/73 Pulse Oximetry 99 97 10/13/20 13
[2020-10-14 12:29] LABS: Vancomycin Trough 20.4 ug/mL (10.0-20.0)
[2020-10-14 12:53] LABS: Glucose Point of Care 153 mg/dl (65-105)
--- NOTE | 2020-10-14 13:11 | PM.PNORT ---
Progress Note: A&P Assessment and Plan (1) Chronic kidney disease (CKD) stage G4/A1, severely decreased glomerular filtration rate (GFR) between 15-29 mL/min/1.73 square meter and albuminuria creatinine ratio less than 30 mg/g: Code(s): N18.4 - Chronic kidney disease, stage 4 (severe) Status: Acute Assessment and Plan: Creatinine close to baseline (2) Right below-knee amputee: Onset Date: 09/28/20 Code(s): Z89.511 - Acquired absence of right leg below knee Status: Acute Assessment and Plan: Overall improved today. Extubated this morning and appears to be doing well. Heart rate and blood pressure better. Wound with less drainage. Patient with malnourishment with low protein and albumin as well as multiple medical comorbidities. Not a great candidate for repeat surgery. We will continue with dressing changes for now and continue to evaluate as medical condition improves. Subjective Subjective Date/Time Seen: 10/14/20 13:11 Principal diagnosis: Right below-knee amputation Interval history: patient awake and alert. Extubated this morning. Appears to be breathing comfortably. No complaints of pain at rest. Exam Const: General: cooperative and awake Nutritional Appearance: obese HENMT: Head: normal to inspection, normocephalic and atraumatic Eyes: Conjunctivae: conjunctivae normal Sclera: sclerae normal Neck: Neck: supple and nontender : General: Yes deferred Urinary Catheter: Urinary Catheter: patent and draining and urine cloudy Extrem: Right lower extremity: hip/thigh Details: normal to inspection, knee Details: normal to inspection; no tenderness and lower leg (Below-knee amputation.) Left lower extremity: hip/thigh Details: normal to inspection, knee Details: abnormal ROM ( range of motion deferred secondary to fracture), ankle (no calf tenderness) Details: normal to inspection, abnormal ROM Details: with range as follows ( Minimal range of motion ankle and hindfoot secondary to fusion); no pain with active ROM and no pain with passive ROM and other ( good capillary refill in toes, 2+ DP pulse, light touch sensation intact); no tenderness ( lateral malleolus, anterior ankle and medial ankle) and no swelling ( moderate anterior ankle, moderate lateral ankle) and foot Details: normal capillary refill, toes with normal ROM, vascular exam Details: dorsalis pedis pulse present and normal capillary refill, tendon exam active flexion normal and active extension normal and motor-sensory exam two point discrimination normal and light-touch normal; no tenderness Other: Some approximation of the incision at the mid portion. 75% wound dehiscence with necrotic subcutaneous tissue surrounding. Improvement in appearance/viability of tissue in the more proximal aspect of the tibia noted. Inability to probe to bone. Dressing changed. Less drainage. Objective Data Vital Signs Vital Signs: Vital Signs - 24 hr 10/13/20 13:30 10/13/20 13:35 10/13/20 13:39 Temperature Pulse Rate 82 90 90 Respiratory Rate 32 H 30 H Blood Pressure Pulse Oximetry 98 10/13/20 14:00 10/13/20 16:00 10/13/20 16:24 Temperature Pulse Rate 80 83 81 Respiratory Rate 22 H 23 H Blood Pressure 127/65 111/68 Pulse Oximetry 99 99 99 10/13/20 18:00 10/13/20 20:00 10/13/20 20:01 Temperature 99.4 F 99.6 F Pulse Rate 78 88 85 Respiratory Rate 24 H 26 H Blood Pressure 134/69 127/65 Pulse Oximetry 99 98 10/13/20 20:23 10/13/20 20:24 10/13/20 20:31 Temperature Pulse Rate 79 82 82 Respiratory Rate 22 H 22 H Blood Pressure Pulse Oximetry 99 10/13/20 21:15 10/13/20 22:00 10/13/20 22:01 Temperature 99.6 F 99.5 F Pulse Rate 94 82 83 Respiratory Rate 30 H 24 H Blood Pressure 128/64 Pulse Oximetry 99 98 10/13/20 23:48 10/14/20 00:00 10/14/20 00:01 Temperature 99.5 F Pulse Rate 79 85 81 Respiratory Rate 15 Blood Pressure 131/79 Pulse Oximetry 99 99
[2020-10-14] MEDS: hydrALAZINE HCL 20 MG/ML VIAL 10 MG IV PUSH ×2 (15:01→22:13)
--- NOTE | 2020-10-14 15:04 | PM.IMPN ---
Progress Note: A&P Assessment and Plan (1) UTI (urinary tract infection): Qualifiers: Hematuria presence: without hematuria Urinary tract infection type: acute cystitis Qualified Code(s): N30.00 - Acute cystitis without hematuria Code(s): N39.0 - Urinary tract infection, site not specified Status: Acute Assessment and Plan: e coli Continue antibiotics as noted (2) Acute osteomyelitis of fibula: Code(s): M86.169 - Other acute osteomyelitis, unspecified tibia and fibula Status: Acute Assessment and Plan: knee x-rays as follows: 1. Irregularity of the bone margin of the fibular stump, which is indeterminate for osteomyelitis. 2. Severe right knee osteoarthritis. 3. Large knee joint effusion with loose bodies. (3) Septic shock: Code(s): A41.9 - Sepsis, unspecified organism; R65.21 - Severe sepsis with septic shock Status: Acute Assessment and Plan: RESOLVED 10/14 pressors off Continue to monitor Continue IV vancomycin and cefepime (day 3), metronidazole (day 2) Orthopedics on consult possible intervention; await recommendations Knee x-ray with concerns for tubular osteomyelitis Cellulitis of right lower extremity UTI with e coli Blood culture with 1/2 growing coag negative staph (4) Neutrophilic leukocytosis: Code(s): D72.9 - Disorder of white blood cells, unspecified Status: Acute Assessment and Plan: possibly secondary to infection Patient on IV antibiotic (5) Protein-calorie malnutrition, moderate: Code(s): E44.0 - Moderate protein-calorie malnutrition Status: Acute Assessment and Plan: abdomen noted to be low Continue to monitor regarding introduction of feet (6) Normal anion gap metabolic acidosis: Code(s): E87.2 - Acidosis Status: Acute Assessment and Plan: continues to have normal anion gap metabolic acidosis Will check for urine electrolytes Lactic acid within normal limits (7) Acute on chronic respiratory failure with hypoxia and hypercapnia: Code(s): J96.21 - Acute and chronic respiratory failure with hypoxia; J96.22 - Acute and chronic respiratory failure with hypercapnia Status: Acute Assessment and Plan: presented with respiratory acidosis and increased lethargy requiring intubation Was also noted to be hypoxic Chest x-ray with possible pulmonary vascular congestion 10/14 Doing well off vent (8) Acute renal failure superimposed on stage 4 chronic kidney disease: Qualifiers: Acute renal failure type: unspecified Qualified Code(s): N17.9 - Acute kidney failure, unspecified; N18.4 - Chronic kidney disease, stage 4 (severe) Code(s): N17.9 - Acute kidney failure, unspecified; N18.4 - Chronic kidney disease, stage 4 (severe) Status: Acute Assessment and Plan: 10/14 creatinine 2.8 Renal ultrasound is follows: 1. No left hydronephrosis. Severe right renal atrophy. 2. Indeterminate lesions on CT not identified on this study. Consider follow-up nonemergent kidney ultrasound after patient is extubated, able to position appropriately for nonemergent evaluation of these lesions. continue IV hydration and pressors Strict eyes and (9) Encephalopathy: Code(s): G93.40 - Encephalopathy, unspecified Status: Resolved Assessment and Plan: RESOLVING (10) Bradycardia: Code(s): R00.1 - Bradycardia, unspecified Status: Resolved Assessment and Plan: RESOLVED (11) C. difficile colitis: Code(s): A04.72 - Enterocolitis due to Clostridium difficile, not specified as recurrent Status: Acute Assessment and Plan: PO VANC (12) Hypertension: Qualifiers: Hypertension type: essential hypertension Qualified Code(s): I10 - Essential (primary) hypertension Code(s): I10 - Essential (primary) hypertension Status: Acute Assessment and Plan: 10/14 BP noted
[2020-10-14 18:12] LABS: Glucose Point of Care 96 mg/dl (65-105)
[2020-10-14] MEDS: ATORVASTATIN 40 MG TABLET PO (20:01)
[2020-10-14 21:52] LABS: Osmolality, Urine 189 mOsm/kg (50-1200)
[2020-10-14] MEDS: ACETAMINOPHEN 325 MG TABLET 650 MG PO (22:14)
[2020-10-15] VITALS (19 sets, daily range): BP systolic 121–187; BP diastolic 50–99; PULSE 65–107; RESP 14–30; TEMP 36.3–37.3; O2SAT 94–100
[2020-10-15] MEDS: VANCOMYCIN ORAL 125 MG/2.5 ML SYRUP PO ×4 (00:30→17:39)
[2020-10-15 00:48] LABS: Glucose Point of Care 88 mg/dl (65-105)
[2020-10-15] MEDS: ALBUTEROL SULFATE NEB 2.5 MG/0.5 ML INH INHALATION ×4 (02:43→20:10)
[2020-10-15] MEDS: IPRATROPIUM BR 0.02% INH SOLN 0.5 MG/2.5 ML VIAL INHALATION ×4 (02:43→20:11)
[2020-10-15] MEDS: metroNIDAZOLE 500 MG/ISO 100ML 500 MG/100 ML BAG 100 MG IVPB ×3 (05:19→21:16)
[2020-10-15] MEDS: HEPARIN SODIUM 5,000 UNITS/ML VIAL 5000 UNITS SUB-Q ×3 (05:20→21:16)
[2020-10-15] MEDS: SODIUM BICARBONATE 8.4% 150 MEQ in DEXTROSE 5% 1,000 ML 950 ML 75 MEQ IV CONT (05:20)
[2020-10-15] MEDS: LEVOTHYROXINE SODIUM 25 MCG TABLET PO (05:21)
[2020-10-15] MEDS: CENTRAL LINE FLUSH 10 ML IV PUSH ×2 (05:21→12:24)
[2020-10-15 06:27] LABS: Glucose Point of Care 97 mg/dl (65-105)
[2020-10-15 06:29] LABS: Hematocrit 27.8 % (37.0-47.0); Hemoglobin 8.5 g/dL (12.0-15.0); Mean Corpuscular HGB Conc 30.6 g/dl (32-36); Mean Corpuscular Hemoglobin 28.6 pg (26-34); Mean Corpuscular Volume 93.6 fl (80-100); Platelet Count Result 236 k/mm3 (150-375); Red Blood Count 2.97 M/mm3 (4.2-5.4); Red Cell Distribution Width 14.7 % (11.5-14.5); White Blood Count 9.8 K/mm3 (4.5-10.0)
[2020-10-15 06:43] LABS: Alanine Aminotransferase 8 U/L (4-35); Alkaline Phosphatase 65 U/L (38-126); Anion Gap 6 mmol/L (8-16); Aspartate Amino Transferase 20 U/L (14-36); Bilirubin,Total 0.2 mg/dL (0.2-1.3); Blood Urea Nitrogen 55 mg/dL (7-17); Calcium 7.3 mg/dL (8.4-10.2); Carbon Dioxide 25 mmol/L (22-30); Chloride 108 mmol/L (98-107); Estimated CRCL calculation 24 ml/min; Estimated Glomerular Filt Rate 16; Glucose 97 mg/dL (65-105); Magnesium 1.5 mg/dL (1.6-2.3); Potassium 3.8 mmol/L (3.4-5.0); Sodium 139 mmol/L (137-145)
[2020-10-15] MEDS: hydrALAZINE HCL 20 MG/ML VIAL 10 MG IV PUSH ×2 (06:55→12:24)
--- NOTE | 2020-10-15 08:58 | PM.IMPN ---
Progress Note: A&P Assessment and Plan (1) UTI (urinary tract infection): Qualifiers: Hematuria presence: without hematuria Urinary tract infection type: acute cystitis Qualified Code(s): N30.00 - Acute cystitis without hematuria Code(s): N39.0 - Urinary tract infection, site not specified Status: Acute Assessment and Plan: e coli & pseudomonas, on cefepime Continue antibiotics as noted (2) Acute osteomyelitis of fibula: Code(s): M86.169 - Other acute osteomyelitis, unspecified tibia and fibula Status: Acute Assessment and Plan: knee x-rays as follows: 1. Irregularity of the bone margin of the fibular stump, which is indeterminate for osteomyelitis. 2. Severe right knee osteoarthritis. 3. Large knee joint effusion with loose bodies. (3) Septic shock: Code(s): A41.9 - Sepsis, unspecified organism; R65.21 - Severe sepsis with septic shock Status: Acute Assessment and Plan: RESOLVED 10/14 pressors off Continue to monitor Continue IV vancomycin and cefepime (day 3), metronidazole (day 2) Orthopedics on consult possible intervention; await recommendations Knee x-ray with concerns for tubular osteomyelitis Cellulitis of right lower extremity UTI with e coli and pseudomonas Blood culture with 1/2 growing coag negative staph (4) Neutrophilic leukocytosis: Code(s): D72.9 - Disorder of white blood cells, unspecified Status: Acute Assessment and Plan: possibly secondary to infection Patient on IV antibiotic (5) Protein-calorie malnutrition, moderate: Code(s): E44.0 - Moderate protein-calorie malnutrition Status: Acute Assessment and Plan: Feed as tolerated (6) Normal anion gap metabolic acidosis: Code(s): E87.2 - Acidosis Status: Acute Assessment and Plan: continues to have normal anion gap metabolic acidosis Will check for urine electrolytes Lactic acid within normal limits (7) Acute on chronic respiratory failure with hypoxia and hypercapnia: Code(s): J96.21 - Acute and chronic respiratory failure with hypoxia; J96.22 - Acute and chronic respiratory failure with hypercapnia Status: Acute Assessment and Plan: presented with respiratory acidosis and increased lethargy requiring intubation Was also noted to be hypoxic Chest x-ray with possible pulmonary vascular congestion 10/15 Doing well off vent, room air daytime, 2 L nighttime (8) Acute renal failure superimposed on stage 4 chronic kidney disease: Qualifiers: Acute renal failure type: unspecified Qualified Code(s): N17.9 - Acute kidney failure, unspecified; N18.4 - Chronic kidney disease, stage 4 (severe) Code(s): N17.9 - Acute kidney failure, unspecified; N18.4 - Chronic kidney disease, stage 4 (severe) Status: Acute Assessment and Plan: 10/14 creatinine 2.8 Renal ultrasound is follows: 1. No left hydronephrosis. Severe right renal atrophy. 2. Indeterminate lesions on CT not identified on this study. Consider follow-up nonemergent kidney ultrasound after patient is extubated, able to position appropriately for nonemergent evaluation of these lesions. continue IV hydration and pressors Strict eyes and (9) Encephalopathy: Code(s): G93.40 - Encephalopathy, unspecified Status: Resolved Assessment and Plan: RESOLVING (10) Bradycardia: Code(s): R00.1 - Bradycardia, unspecified Status: Resolved Assessment and Plan: RESOLVED (11) C. difficile colitis: Code(s): A04.72 - Enterocolitis due to Clostridium difficile, not specified as recurrent Status: Acute Assessment and Plan: PO VANC (12) Hypertension: Qualifiers: Hypertension type: essential hypertension Qualified Code(s): I10 - Essential (primary) hypertension Code(s): I10 - Essential (primary) hypertension Status: Acute Assessment and Plan:
[2020-10-15] MEDS: amLODIPine BESYLATE 5 MG TABLET PO (09:18)
[2020-10-15] MEDS: PANTOPRAZOLE SODIUM IV 40 MG VIAL IV PUSH (09:19)
[2020-10-15] MEDS: MAGNESIUM SULF 2 GM/WATER 50ML 2 GM/50 ML BAG IVPB (09:27)
[2020-10-15] MEDS: cloNIDine HCL 0.1 MG TABLET PO ×2 (09:27→18:11)
[2020-10-15] MEDS: SOD HYPOCHLORITE 1/4 STRENGTH 473 ML 1 APPLIC TOPICAL ×2 (09:28→21:17)
--- NOTE | 2020-10-15 10:24 | PM.PNNEP ---
Progress Note: A&P Assessment and Plan (1) Chronic kidney disease, stage 4 (severe): Code(s): N18.4 - Chronic kidney disease, stage 4 (severe) Status: Acute Assessment and Plan: The patient has chronic kidney disease. Her creatinine has been gradually rising over the years. It has recently been stable at around 3. This might just be her chronic baseline. Her CKD is most likely due to diabetes hypertension and vascular disease She could have some element of acute kidney injury urine electrolytes are non pre renal. Urine eosinophils are negative UA shows infection ultrasound shows severe right renal atrophy. Left kidney looks okay. Creatinine is stable and at baseline. (2) Metabolic acidosis: Code(s): E87.2 - Acidosis Status: Acute Assessment and Plan: Bicarbonate level is improved. She has some swelling blood pressure is fine will change from IV bicarb 2 pills (3) On mechanically assisted ventilation: Code(s): Z99.11 - Dependence on respirator [ventilator] status Status: Acute Assessment and Plan: Patient is on the ventilator now. FiO2 only 30%. (4) Septic shock: Code(s): A41.9 - Sepsis, unspecified organism; R65.21 - Severe sepsis with septic shock Status: Acute Assessment and Plan: The patient was just weaned off the Levophed. She is on broad-spectrum antibiotics. Blood cultures positive for coag-negative staph in only 1 of 2 bottles. Probably contaminant question E coli and Pseudomonas growing in the urine. She is on cefepime which covers both repeat urine culture done a day later was negative (5) Hypertension: Qualifiers: Hypertension type: essential hypertension Qualified Code(s): I10 - Essential (primary) hypertension Code(s): I10 - Essential (primary) hypertension Status: Acute Assessment and Plan: blood pressure rising. Will fold in antihypertensives. (6) Anemia: Code(s): D64.9 - Anemia, unspecified Status: Acute Assessment and Plan: Hemoglobin is 8.5 On EPO (7) Bradycardia: Code(s): R00.1 - Bradycardia, unspecified Status: Resolved Assessment and Plan: Resolved (8) C. difficile colitis: Code(s): A04.72 - Enterocolitis due to Clostridium difficile, not specified as recurrent Status: Acute (9) Type 2 diabetes mellitus: Qualifiers: Diabetes mellitus remote computer terminal operator insulin use: without remote computer terminal operator use Diabetes mellitus complication status: with kidney complications Diabetes mellitus complication detail: with chronic kidney disease Chronic kidney disease stage: stage 4 (severe) Qualified Code(s): E11.22 - Type 2 diabetes mellitus with diabetic chronic kidney disease; N18.4 - Chronic kidney disease, stage 4 (severe) Code(s): E11.9 - Type 2 diabetes mellitus without complications Status: Acute Assessment and Plan: on Accu-Cheks and sliding-scale insulin (10) Hypercholesterolemia: Code(s): E78.00 - Pure hypercholesterolemia, unspecified Status: Acute Subjective Date/time seen: 10/15/20 10:24 Interval history: patient is awake And feeling better. She is off the ventilator now. Her sales engineering manager is Dr. Clark who does not come to this hospital. Denies chest pain. No shortness of breath. Belly is okay. Exam Narrative: Exam Narrative: WDWN female in NAD skin no rash Or subcu nodules head ncat lungs clear bilaterally cor reg no rub abd BS+ nontender and soft ext 1+ edema. Objective Data Vital Signs Vital Signs: Vital Signs - 24 hr 10/14/20 12:00 10/14/20 12:12 10/14/20 14:00 Temperature 37.6 C H 37.5 C Pulse Rate 98 98 Respiratory Rate 16 14 Blood Pressure 164/68 H 174/67 H Pulse Oximetry 94 94 95 10/14/20 14:08 10/14/20 14:20 10/14/20 16:00 Temperature 37.4 C Pulse Rate 94 92 9
[2020-10-15] MEDS: ASPIRIN 81 MG ENTERIC TABLET PO (10:34)
[2020-10-15] MEDS: hydrALAZINE HCL 50 MG TABLET 100 MG PO ×3 (10:34→17:41)
--- NOTE | 2020-10-15 10:56 | WPDINTPN ---
Progress Note: A&P Assessment and Plan (1) Bradycardia: Code(s): R00.1 - Bradycardia, unspecified Status: Resolved Assessment and Plan: RESOLVED patient presented with bradycardia with heart rates in the 30s and 40s in the ER, received atropine and glucagon in the ER. likely thought to be due to a beta-blockers, hypotension and septic versus cardiogenic shock. - PATIENT OFF DOPAMINE AND LEVOPHED - heart rate 70s to 90s - cardiology following the patient - continue monitor heart rates closely - continue to hold home verapamil and metoprolol (2) Septic shock: Code(s): A41.9 - Sepsis, unspecified organism; R65.21 - Severe sepsis with septic shock Status: Acute Assessment and Plan: RESOLVED. has been all pressors and inotropes for > 48 hours shock likely related to septic versus cardiogenic patient was hypotensive lactic acid was 0.6, initially dominant white blood white count has increased this morning. - Central line the right IJ, OFF Levophed. will maintain MAP > 65 mmHg for adequate end organ perfusion - lactic acid is normal - 10/11/2020 blood cultures coag-negative staph - 10/11/2020, E COLI, and Pseudomonas, pansensitive - 10/11/2020:culture from the right BKA wound Growing rare gram-positive cocci - continue vancomycin IV, cefepime IV and Flagyl IV, appreciate infectious disease evaluation and recommendation, - patient also has recent history of C diff colitis she is on p.o. vancomycin and that was continued (3) Respiratory failure: Code(s): J96.90 - Respiratory failure, unspecified, unspecified whether with hypoxia or hypercapnia Status: Acute Assessment and Plan: patient was in acute hypercapnic respiratory failure. Intubated on 10/11/2020 - given her altered mental status and encephalopathy patient was intubated for airway protection - patient was extubated on 10/14/2020 - currently on room air with good O2 sats, - encourage incentive spirometry, - PT/OT to evaluate, up in chair - - will turn of sedation, place patient on SBT and evaluate for extubation - continue bronchodilators (4) UTI (urinary tract infection): Qualifiers: Hematuria presence: without hematuria Urinary tract infection type: acute cystitis Qualified Code(s): N30.00 - Acute cystitis without hematuria Code(s): N39.0 - Urinary tract infection, site not specified Status: Acute Assessment and Plan: urinalysis reflective of possible UTI - continue antibiotics as above - urine culture growing E coli and Pseudomonas, pansensitive - continue cefepime (5) Leg wound, right: Qualifiers: Encounter type: sequela Qualified Code(s): S81.801S - Unspecified open wound, right lower leg, sequela Code(s): S81.801A - Unspecified open wound, right lower leg, initial encounter Status: Acute Assessment and Plan: right BKA done on 09/30/[address] Curtis, ortho - ortho following closely and managing the right stump wound - x-ray of the knee on 10/11/2020: . Irregularity of the bone margin of the fibular stump, which is indeterminate for osteomyelitis.2. Severe right knee osteoarthritis. 3. Large knee joint effusion with loose bodies. (6) C. difficile colitis: Code(s): A04.72 - Enterocolitis due to Clostridium difficile, not specified as recurrent Status: Acute Assessment and Plan: patient was recently of C diff colitis, continue p.o. vancomycin - infectious disease team following the patient (7) Encephalopathy: Code(s): G93.40 - Encephalopathy, unspecified Status: Resolved Assessment and Plan: RESOLVED admitted with encephalopathy much improved this morning, patient is awake, alert, follows simple commands with bilateral upper extremities and left lower extremities as she has a right BKA. - Ammonia levels were within normal limits - CT scan of the brain did not show any acute intracran
[2020-10-15 11:48] LABS: Glucose Point of Care 153 mg/dl (65-105)
--- NOTE | 2020-10-15 11:54 | PCSTNOTE ---
Bedside swallow evaluation complete. Please see ST evaluation for details and recommendations.
--- NOTE | 2020-10-15 12:05 | WPDPN ---
Progress Note: A&P Additional Plan S/P RIGHT LEG AMPUTATION DOING WELL AND STABLE. CONTINUE DRESSING CHANGES Subjective Date/time seen: 10/15/20 12:05 IMPROVING. EXTUBATED AND STABLE. NO NEW COMPLAINTS. Exam Extrem: Other: DRESSING DRY THIGH SOFT Objective Data Vital Signs Vital Signs: Vital Signs - 24 hr 10/14/20 12:12 10/14/20 14:00 10/14/20 14:08 Temperature 37.5 C Pulse Rate 98 94 Respiratory Rate 14 16 Blood Pressure 174/67 H Pulse Oximetry 94 95 10/14/20 14:20 10/14/20 16:00 10/14/20 18:00 Temperature 37.4 C 37.5 C Pulse Rate 92 98 100 Respiratory Rate 18 32 H 30 H Blood Pressure 132/54 L 147/71 H Pulse Oximetry 93 96 10/14/20 19:53 10/14/20 20:00 10/14/20 22:00 Temperature 36.8 C Pulse Rate 100 100 99 Respiratory Rate 21 H 16 Blood Pressure 143/65 H 174/66 H Pulse Oximetry 92 95 10/14/20 22:16 10/14/20 22:29 10/15/20 00:00 Temperature 36.9 C Pulse Rate 95 94 100 Respiratory Rate 16 15 23 H Blood Pressure 139/64 Pulse Oximetry 95 10/15/20 01:54 10/15/20 01:55 10/15/20 02:46 Temperature 36.8 C Pulse Rate 97 94 96 Respiratory Rate 22 H 14 Blood Pressure 150/74 H Pulse Oximetry 94 10/15/20 03:12 10/15/20 04:00 10/15/20 06:00 Temperature 36.7 C 36.7 C Pulse Rate 92 92 92 Respiratory Rate 16 18 16 Blood Pressure 152/76 H 187/99 H Pulse Oximetry 96 100 10/15/20 08:00 10/15/20 09:15 10/15/20 09:22 Temperature 36.7 C Pulse Rate 91 92 Respiratory Rate 30 H 22 H Blood Pressure 169/74 H Pulse Oximetry 100 96 10/15/20 10:00 10/15/20 12:00 Temperature 37.3 C Pulse Rate 100 98 Respiratory Rate 26 H Blood Pressure 170/68 H Pulse Oximetry 96 Intake/Output Intake/Output: Intake & Output 10/12/20 10/13/20 10/14/20 10/15/20 23:59 23:59 23:59 23:59 Intake Total 796 4632 2246 1259 Output Total 449 0007 6433 1180 Balance -199 5154 -653 -144 Meds/Results Medications: Active Medications Generic Name Dose Route Start Last Admin Trade Name Freq PRN Reason Stop Dose Admin Acetaminophen 650 mg 10/14/20 21:52 10/14/20 22:14 Acetaminophen 325 Mg Tablet PO 650 mg Q6H PRN Administration Mild Pain (1-3) or Fever Albuterol 2.5 mg 10/12/20 14:00 10/15/20 09:22 Albuterol Sulfate Neb 2.5 Mg/0.5 Ml Inh INHALATION 2.5 mg Q6HRT REJI Administration Amlodipine Besylate 5 mg 10/15/20 09:00 10/15/20 09:18 Amlodipine Besylate 5 Mg Tablet PO 5 mg QAM REJI Administration Aspirin 81 mg 10/15/20 09:00 10/15/20 10:34 Aspirin 81 Mg Enteric Tablet PO 81 mg DAILY REJI Administration Atorvastatin Calcium 40 mg 10/11/20 21:00 10/14/20 20:01 Atorvastatin 40 Mg Tablet PO 40 mg HS REJI Administration Clonidine HCl 0.1 mg 10/15/20 09:00 10/15/20 09:27 Clonidine Hcl 0.1 Mg Tablet PO 0.1 mg BID REJI Administration Dextrose 12.5 gm 10/11/20 15:56 Dextrose 50% 25 Gm/50 Ml Syringe IV PUSH PRN PRN Hypoglycemia Protocol Epoetin Gregory-epbx 10,000 units 10/13/20 12:30 10/13/20 17:06 Epoetin Gregory-Epbx 10,000 Units/Ml Vial SUB-Q 10,000 units MOWEFR REJI Administration Glucagon 1 mg 10/11/20 15:56 Glucagon For Inj 1 Mg Vial IM PRN PRN Hypoglycemia Protocol Glucose 15 gm 10/11/20 15:56 Glucose Oral Gel 15 Gm Of Glucse In 37.5 Gm Tube PO PRN PRN Hypoglycemia Protocol Heparin Sodium (Porcine) 5,000 units 10/11/20 22:00 10/15/20 05:20 Heparin Sodium 5,000 Units/Ml Vial SUB-Q 5,000 units Q8HR REJI Administration Hydralazine HCl 10 mg 10/14/20 09:36 10/15/20 06:55 Hydralazine Hcl 20 Mg/Ml Vial IV PUSH 10 mg Q4H PRN Administration Blood Pressure - High Hydralazine HCl 100 mg 10/15/20 09:00 10/15/20 10:34 Hydralazine Hcl 50 Mg Tablet PO 100 mg TID REJI Administration Dextrose 1,000 mls @ 100 mls/hr 10/11/20 15:56 Dextrose 5% 1,000 Ml IVPB PRN PRN Hypoglycemia Emperatriz
--- NOTE | 2020-10-15 12:25 | PM.PNCARD ---
Progress Note: A&P Assessment and Plan (1) Bradycardia: Code(s): R00.1 - Bradycardia, unspecified Status: Resolved Assessment and Plan: initial EKG showed sinus bradycardia 44 bpm Heart rate better now up to 100s. Off transcutaneous pacing Bradycardia was multifactorial in the setting of sepsis, polypharmacy including BB (Metoprolol 200 mg daily), CCB (verapamil 240 mg daily), and clonidine as well as possible slow heart rate at baseline (EKG in 2013 showed HR of 57, not sure if was on blocking agents back then) No acute indication for pacemaker placement will start on low-dose metoprolol and watch her heart rate now, as she is becoming tachycardic and hypertensive now (2) Right below-knee amputee: Onset Date: 09/28/20 Code(s): Z89.511 - Acquired absence of right leg below knee Status: Acute Assessment and Plan: Complicated with infection. Management per surgery (3) Chronic kidney disease (CKD) stage G4/A1, severely decreased glomerular filtration rate (GFR) between 15-29 mL/min/1.73 square meter and albuminuria creatinine ratio less than 30 mg/g: Code(s): N18.4 - Chronic kidney disease, stage 4 (severe) Status: Acute Assessment and Plan: Creatinine close to baseline (4) Hypertension: Qualifiers: Hypertension type: essential hypertension Qualified Code(s): I10 - Essential (primary) hypertension Code(s): I10 - Essential (primary) hypertension Status: Acute Assessment and Plan: Hypotensive on admission in the setting of sepsis. Now BP high. Avoid blocking agents for now. May consider resume BB at lower dose eventually. (5) Type 2 diabetes mellitus: Qualifiers: Diabetes mellitus mcc insulin use: without mcc use Diabetes mellitus complication status: with kidney complications Diabetes mellitus complication detail: with chronic kidney disease Chronic kidney disease stage: stage 4 (severe) Qualified Code(s): E11.22 - Type 2 diabetes mellitus with diabetic chronic kidney disease; N18.4 - Chronic kidney disease, stage 4 (severe) Code(s): E11.9 - Type 2 diabetes mellitus without complications Status: Acute Assessment and Plan: Management as per primary service. (6) Obesity: Code(s): E66.9 - Obesity, unspecified Status: Acute Assessment and Plan: 20 lb weight loss needed in the coming months. Subjective Date/time seen: 10/15/20 12:25 she feels much better today, she got extubated, and now has hypertension and slight tachycardia no chest pain no significant shortness breath Exam Narrative: Exam Narrative: Morbidly obese. S/p right BKA. Const: General: No acute distress Nutritional Appearance: obese Orientation/consciousness: confusion Limitations: altered mental status HENMT: Head: normal to inspection and atraumatic Face and sinus: normal facial exam Eyes: General: appearance normal, both eyes and all related structures Pupils: Equal, round and reactive pupils present EOM: EOMs intact bilaterally Neck: Neck: normal visual inspection and no JVD Chest: Chest palpation & inspection: normal inspection of the chest Resp: Effort & Inspection: normal respiratory effort and no respiratory distress Auscultation: diminished lung sounds Cardio: Jugular venous distension: no JVD Rate: regular rate Heart sounds: S1 normal heart sound present, S2 normal heart sound present and no murmurs GI: Inspection: normal to inspection Auscultation: normal bowel sounds Skin: General skin exam: pallor Neuro: General: confusion Cranial nerves: Yes Equal, round and reactive pupils present Extrem: General: amputation noted (R BKA covered with dressing) Below the knee: right Objective Data Vital Signs Vital Signs: Vital Signs - 24 hr 10/14/20 14:00 10/14/20 14:08 10/14/20 14:20 Temperature 37.5 C Pulse Rate 98 94 92 Respiratory Rate 14 16 18 Blood Press
[2020-10-15 16:57] LABS: Glucose Point of Care 140 mg/dl (65-105)
--- NOTE | 2020-10-15 17:51 | PC.NURSE ---
This patient, Rimma Lopes, was transferred to [facility] on 10/15/20 at 1745. Personal belongings sent with patient. Report given to Hina JOSE. Appropriate documentation sent with patient.
--- NOTE | 2020-10-15 21:14 | WPDINFPN2 ---
Progress Note: A&P Additional Plan 1. Clostridium difficile colitis clinically doing well. No diarrhea. Formed stool today as per patient. Patient is currently on oral vancomycin day 10. And metronidazole day 4. Continue current treatment to complete a total of 14 days. 2. Septic shock currently on cefepime and vancomycin day 5. Source of infection soft tissue versus genitourinary less likely. 3. Right BKA stump site infection Dr. ras gallo. Subjective Date/time seen: 10/15/20 21:14 Exam Neck: Neck: normal visual inspection Chest: Chest palpation & inspection: normal inspection of the chest Resp: Effort & Inspection: normal respiratory effort Auscultation: clear to auscultation bilaterally Cardio: Jugular venous distension: no JVD Rate: regular rate Rhythm: regular rhythm Heart sounds: S1 normal heart sound present and S2 normal heart sound present GI: Inspection: normal to inspection Auscultation: normal bowel sounds Skin: General skin exam: normal color Rashes: no rashes Wounds: no wounds ( Right BKA site wound is clean) Neuro: General: oriented to person, oriented to place and oriented to time Speech: normal speech Motor exam (neuro): 5/5 motor strength present throughout Sensory Exam: normal sensation Extrem: General: normal to inspection ( right AKA site wound is clean.) Objective Data Vital Signs Vital Signs: Vital Signs - 24 hr 10/14/20 22:00 10/14/20 22:16 10/14/20 22:29 Temperature Pulse Rate 99 95 94 Respiratory Rate 16 16 15 Blood Pressure 174/66 H Pulse Oximetry 95 10/15/20 00:00 10/15/20 01:54 10/15/20 01:55 Temperature 36.9 C 36.8 C Pulse Rate 100 97 94 Respiratory Rate 23 H 22 H Blood Pressure 139/64 150/74 H Pulse Oximetry 95 94 10/15/20 02:46 10/15/20 03:12 10/15/20 04:00 Temperature 36.7 C Pulse Rate 96 92 92 Respiratory Rate 14 16 18 Blood Pressure 152/76 H Pulse Oximetry 96 10/15/20 06:00 10/15/20 08:00 10/15/20 09:15 Temperature 36.7 C 36.7 C Pulse Rate 92 91 Respiratory Rate 16 30 H Blood Pressure 187/99 H 169/74 H Pulse Oximetry 100 100 96 10/15/20 09:22 10/15/20 09:35 10/15/20 10:00 Temperature Pulse Rate 92 94 100 Respiratory Rate 22 H 20 Blood Pressure Pulse Oximetry 10/15/20 12:00 10/15/20 13:46 10/15/20 14:00 Temperature 37.3 C Pulse Rate 99 107 H 104 H Respiratory Rate 26 H 21 H 25 H Blood Pressure 170/68 H Pulse Oximetry 96 10/15/20 16:00 10/15/20 20:11 10/15/20 20:24 Temperature 36.9 C Pulse Rate 106 H 100 92 Respiratory Rate 22 H 20 20 Blood Pressure 121/71 Pulse Oximetry 94 Intake/Output Intake/Output: Intake & Output 10/12/20 10/13/20 10/14/20 10/15/20 23:59 23:59 23:59 23:59 Intake Total 776 2972 3612 1350 Output Total 975 1375 4000 2950 Balance -199 1273 -173 -2452 Meds/Results Medications: Active Medications Generic Name Dose Route Start Last Admin Trade Name Freq PRN Reason Stop Dose Admin Acetaminophen 650 mg 10/14/20 21:52 10/14/20 22:14 Acetaminophen 325 Mg Tablet PO 650 mg Q6H PRN Administration Mild Pain (1-3) or Fever Albuterol 2.5 mg 10/12/20 14:00 10/15/20 20:10 Albuterol Sulfate Neb 2.5 Mg/0.5 Ml Inh INHALATION 2.5 mg Q6HRT REJI Administration Amlodipine Besylate 10 mg 10/16/20 09:00 Amlodipine Besylate 5 Mg Tablet PO QAM REJI Aspirin 81 mg 10/15/20 09:00 10/15/20 10:34 Aspirin 81 Mg Enteric Tablet PO 81 mg DAILY REJI Administration Atorvastatin Calcium 40 mg 10/11/20 21:00 10/14/20 20:01 Atorvastatin 40 Mg Tablet PO 40 mg HS REJI Administration Clonidine HCl 0.1 mg 10/15/20 09:00 10/15/20 18:11 Clonidine Hcl 0.1 Mg Tablet PO 0.1 mg BID REJI Administration Dextrose 12.5 gm 10/11/20 15:56 Dextrose 50% 25 Gm/50 Ml Syringe IV PUSH PRN PRN Hypoglycemia Protocol Epoetin Gregory-epbx 10,000 units 10/13/20 12:30 10/13/20 17:06 Epoetin Gregory-Epbx
[2020-10-15] MEDS: ATORVASTATIN 40 MG TABLET PO (21:16)
[2020-10-15 21:38] LABS: Glucose Point of Care 113 mg/dl (65-105)
[2020-10-15] MEDS: MINERAL OIL/WHITE PETROLATUM OINTMENT 1 APPLIC EACH EYE (23:19)
[2020-10-16] VITALS (17 sets, daily range): BP systolic 114–146; BP diastolic 57–89; PULSE 73–101; RESP 16–24; TEMP 35.9–36.6; O2SAT 95–98
[2020-10-16] MEDS: ALBUTEROL SULFATE NEB 2.5 MG/0.5 ML INH INHALATION ×4 (03:23→19:44)
[2020-10-16] MEDS: IPRATROPIUM BR 0.02% INH SOLN 0.5 MG/2.5 ML VIAL INHALATION ×4 (03:23→19:44)
[2020-10-16] MEDS: HEPARIN SODIUM 5,000 UNITS/ML VIAL 5000 UNITS SUB-Q ×3 (06:14→20:59)
[2020-10-16] MEDS: metroNIDAZOLE 500 MG/ISO 100ML 500 MG/100 ML BAG 100 MG IVPB ×2 (06:14→14:05)
[2020-10-16] MEDS: LEVOTHYROXINE SODIUM 25 MCG TABLET PO (06:15)
[2020-10-16 06:28] LABS: Glucose Point of Care 92 mg/dl (65-105)
[2020-10-16 06:41] LABS: Alanine Aminotransferase 8 U/L (4-35); Alkaline Phosphatase 64 U/L (38-126); Anion Gap 6 mmol/L (8-16); Aspartate Amino Transferase 23 U/L (14-36); Bilirubin,Total 0.3 mg/dL (0.2-1.3); Blood Urea Nitrogen 52 mg/dL (7-17); Calcium 7.4 mg/dL (8.4-10.2); Carbon Dioxide 26 mmol/L (22-30); Chloride 103 mmol/L (98-107); Estimated CRCL calculation 24 ml/min; Estimated Glomerular Filt Rate 16; Glucose 96 mg/dL (65-105); Magnesium 1.8 mg/dL (1.6-2.3); Phosphorus 3.4 mg/dL (2.5-4.5); Potassium 3.7 mmol/L (3.4-5.0); Sodium 135 mmol/L (137-145)
[2020-10-16 06:44] LABS: Hematocrit 26.5 % (37.0-47.0); Hemoglobin 8.2 g/dL (12.0-15.0); Mean Corpuscular HGB Conc 30.9 g/dl (32-36); Mean Corpuscular Hemoglobin 28.4 pg (26-34); Mean Corpuscular Volume 91.7 fl (80-100); Mean Platelet Volume 10.6 fl (7.4-10.4); Platelet Count Result 267 k/mm3 (150-375); Red Blood Count 2.89 M/mm3 (4.2-5.4); Red Cell Distribution Width 14.8 % (11.5-14.5)
--- NOTE | 2020-10-16 08:52 | PM.IMPN ---
Progress Note: A&P Assessment and Plan (1) Bradycardia: Code(s): R00.1 - Bradycardia, unspecified Status: Resolved Assessment and Plan: RESOLVED patient presented with bradycardia with heart rates in the 30s and 40s in the ER, received atropine and glucagon in the ER. likely thought to be due to a beta-blockers, hypotension and septic versus cardiogenic shock. - PATIENT OFF DOPAMINE AND LEVOPHED - heart rate 70s to 90s - cardiology following the patient - continue monitor heart rates closely - continue to hold home verapamil and metoprolol (2) Septic shock: Code(s): A41.9 - Sepsis, unspecified organism; R65.21 - Severe sepsis with septic shock Status: Acute Assessment and Plan: RESOLVED. has been all pressors and inotropes for > 48 hours shock likely related to septic versus cardiogenic patient was hypotensive lactic acid was 0.6, initially dominant white blood white count has increased this morning. - Central line the right IJ has been removed OFF Levophed. will maintain MAP > 65 mmHg for adequate end organ perfusion - lactic acid is normal - 10/11/2020 blood cultures coag-negative staph which could be contaminant - 10/11/2020, E COLI, and Pseudomonas, pansensitive - 10/11/2020:culture from the right BKA wound negative to date - continue vancomycin IV, cefepime IV and Flagyl IV as per infectious disease store sales consultant - patient also has recent history of C diff colitis she is on p.o. vancomycin IV Flagyl (3) Respiratory failure: Code(s): J96.90 - Respiratory failure, unspecified, unspecified whether with hypoxia or hypercapnia Status: Acute Assessment and Plan: patient was in acute hypercapnic respiratory failure. Intubated on 10/11/2020 - given her altered mental status and encephalopathy patient was intubated for airway protection - patient was extubated on 10/14/2020 - currently on room air with good O2 sats, - encourage incentive spirometry, - PT/OT to evaluate, up in chair - chest x-ray shows pleural effusion on the right and opacities bilaterally suggestive of atelectasis versus pneumonia - diuresis (4) UTI (urinary tract infection): Qualifiers: Hematuria presence: without hematuria Urinary tract infection type: acute cystitis Qualified Code(s): N30.00 - Acute cystitis without hematuria Code(s): N39.0 - Urinary tract infection, site not specified Status: Acute Assessment and Plan: urinalysis reflective of possible UTI - urine culture growing E coli and Pseudomonas, pansensitive - continue cefepime (5) Leg wound, right: Qualifiers: Encounter type: sequela Qualified Code(s): S81.801S - Unspecified open wound, right lower leg, sequela Code(s): S81.801A - Unspecified open wound, right lower leg, initial encounter Status: Acute Assessment and Plan: right BKA done on 09/30/[address] Curtis, ortho - ortho following closely and managing the right stump wound. recommend local wound care this time which will be continued - x-ray of the knee on 10/11/2020: . Irregularity of the bone margin of the fibular stump, which is indeterminate for osteomyelitis.2. Severe right knee osteoarthritis. 3. Large knee joint effusion with loose bodies. (6) C. difficile colitis: Code(s): A04.72 - Enterocolitis due to Clostridium difficile, not specified as recurrent Status: Acute Assessment and Plan: patient was recently of C diff colitis, continue p.o. vancomycin and IV Flagyl as per ID (7) Encephalopathy: Code(s): G93.40 - Encephalopathy, unspecified Status: Resolved Assessment and Plan: RESOLVED admitted with encephalopathy much improved this morning, patient is awake, alert, follows simple commands with bilateral upper extremities and left lower extremities as she has a right BKA. - Ammonia levels were within normal limits - CT scan of the brain did
--- NOTE | 2020-10-16 08:52 | PM.PNCARD ---
Progress Note: A&P Assessment and Plan (1) Bradycardia: Code(s): R00.1 - Bradycardia, unspecified Status: Resolved Assessment and Plan: initial EKG showed sinus bradycardia 44 bpm Bradycardia was multifactorial in the setting of sepsis, polypharmacy including BB (Metoprolol 200 mg daily), CCB (verapamil 240 mg daily), and clonidine Heart rate stable now and she is resumed on low dose Metoprolol (2) Right below-knee amputee: Onset Date: 09/28/20 Code(s): Z89.511 - Acquired absence of right leg below knee Status: Acute Assessment and Plan: Complicated with infection. Management per surgery (3) Chronic kidney disease (CKD) stage G4/A1, severely decreased glomerular filtration rate (GFR) between 15-29 mL/min/1.73 square meter and albuminuria creatinine ratio less than 30 mg/g: Code(s): N18.4 - Chronic kidney disease, stage 4 (severe) Status: Acute Assessment and Plan: Creatinine close to baseline (4) Hypertension: Qualifiers: Hypertension type: essential hypertension Qualified Code(s): I10 - Essential (primary) hypertension Code(s): I10 - Essential (primary) hypertension Status: Acute Assessment and Plan: Hypotensive on admission in the setting of sepsis. Now BP stable. She is being resumed on some of her antihypertensives (5) Type 2 diabetes mellitus: Qualifiers: Diabetes mellitus halfway insulin use: without termination clerk use Diabetes mellitus complication status: with kidney complications Diabetes mellitus complication detail: with chronic kidney disease Chronic kidney disease stage: stage 4 (severe) Qualified Code(s): E11.22 - Type 2 diabetes mellitus with diabetic chronic kidney disease; N18.4 - Chronic kidney disease, stage 4 (severe) Code(s): E11.9 - Type 2 diabetes mellitus without complications Status: Acute Assessment and Plan: Management as per primary service. (6) Obesity: Code(s): E66.9 - Obesity, unspecified Status: Acute Assessment and Plan: 20 lb weight loss needed in the coming months. Subjective Date/time seen: 10/16/20 08:53 Exam Narrative: Exam Narrative: Morbidly obese. S/p right BKA. Const: General: confusion; No acute distress Nutritional Appearance: obese Orientation/consciousness: confusion Limitations: altered mental status HENMT: Head: normal to inspection and atraumatic Face and sinus: normal facial exam Eyes: General: appearance normal, both eyes and all related structures Pupils: Equal, round and reactive pupils present EOM: EOMs intact bilaterally Neck: Neck: normal visual inspection and no JVD Chest: Chest palpation & inspection: normal inspection of the chest Resp: Effort & Inspection: normal respiratory effort and no respiratory distress Auscultation: diminished lung sounds Cardio: Jugular venous distension: no JVD Rate: regular rate Heart sounds: S1 normal heart sound present, S2 normal heart sound present and no murmurs GI: Inspection: normal to inspection Auscultation: normal bowel sounds Skin: General skin exam: pallor Neuro: General: confusion Cranial nerves: Yes Equal, round and reactive pupils present Extrem: General: amputation noted (R BKA covered with dressing) Below the knee: right Objective Data Vital Signs Vital Signs: Vital Signs - 24 hr 10/15/20 09:15 10/15/20 09:22 10/15/20 09:35 Temperature Pulse Rate 92 94 Respiratory Rate 22 H 20 Blood Pressure Pulse Oximetry 96 10/15/20 10:00 10/15/20 12:00 10/15/20 13:46 Temperature 37.3 C Pulse Rate 100 99 107 H Respiratory Rate 26 H 21 H Blood Pressure 170/68 H Pulse Oximetry 96 10/15/20 14:00 10/15/20 16:00 10/15/20 20:00 Temperature 36.9 C 36.3 C L Pulse Rate 104 H 106 H 103 H Respiratory Rate 25 H 22 H 20 Blood Pressure 121/71 132/50 L Pulse Oximetry 94 95 10/15/20 20:11 10/15/20 20:24 10/16/20 00
[2020-10-16] MEDS: hydrALAZINE HCL 50 MG TABLET 100 MG PO ×3 (08:57→17:45)
[2020-10-16] MEDS: amLODIPine BESYLATE 5 MG TABLET 10 MG PO (08:57)
[2020-10-16] MEDS: METOPROLOL SUCCINATE EXT REL 25 MG TABCR PO (08:57)
[2020-10-16] MEDS: ASPIRIN 81 MG ENTERIC TABLET PO (08:58)
[2020-10-16] MEDS: PANTOPRAZOLE SODIUM IV 40 MG VIAL IV PUSH (08:58)
[2020-10-16] MEDS: MINERAL OIL/WHITE PETROLATUM OINTMENT 1 APPLIC EACH EYE ×2 (09:00→21:00)
[2020-10-16] MEDS: cloNIDine HCL 0.1 MG TABLET PO ×2 (09:03→17:45)
[2020-10-16] MEDS: SOD HYPOCHLORITE 1/4 STRENGTH 473 ML 1 APPLIC TOPICAL ×2 (09:03→21:02)
--- NOTE | 2020-10-16 11:27 | PCNFU ---
Nutrition Follow-Up Complete: Nutrition Diagnosis: Inadequate oral intake related to oral intubation/mechanical ventilation as evidenced by NPO status. Nutrition Goal: Patient to meet estimated nutritional needs. Goal is in progress, patient is consuming 75% of meals. Nutrition recommendation: Continue with Heart Healthy, Soft and Bite Sized Level 6 diet. Last recorded weight is 132.5 kg, which is 3lbs down from admission weight on 10/12. Bowel Motility: Last documented on 10/16. Labs Reviewed:Hgb(8.2), Hct(26.5), Alb(2.0), Na(135) GFR(16), BUN(52), Cr(2.9), Ca(7.4) Meds Noted: Albuterol, Norvasc, Lipitor, Cefepime Hcl, Catapres, Retacrit, Glucagon, Hydralazine Hcl, Novolog, Atrovent, Synthroid, Metoprolol Succinate, Flagyl, Protonix, Vancomycin Hcl Additional Notes: Patient's appetite and health status has improved, no longer on tube feedings. Agree with current diet orders, patient is consuming 75% of meals to meet needs. Patient has an incision wound on right leg. Will monitor wound healing, if any complications, will recommend Karl. [place] in place and no current respiratory distress. Follow up in 5 days.
[2020-10-16 11:31] LABS: Glucose Point of Care 128 mg/dl (65-105)
--- NOTE | 2020-10-16 12:31 | PCNSR ---
On 10/16/20, the student, [ Amirah Jovel], provided care and completed [facility] documentation on this patient. I have reviewed the student's documentation and agree with the findings.
--- NOTE | 2020-10-16 13:25 | PM.PNORT ---
Progress Note: A&P Assessment and Plan (1) Right below-knee amputee: Onset Date: 09/28/20 Code(s): Z89.511 - Acquired absence of right leg below knee Status: Acute Assessment and Plan: Patient alert and oriented. Overall, improvement in condition. Tolerating pain well. Wound bed with continued slough/necrotic tissue. Moderate serosanguineous drainage. Not a good candidate for wound VAC at this time due to amount of slough/necrosis. Patient would likely benefit from return to operating room for debridement and wound VAC placement; however, with malnourishment, low protein/albumin and multiple medical comorbidities, she is not an ideal candidate for healing of wound at this time. Nutrition consult may be beneficial. Continue BID dressing changes with Dakin's. Will reevaluate need for further debridement pending medical stability and improvement in overall medical condition. Elevate stump on pillows in the interim. Change dressing BID and PRN. Will continue to follow. Subjective Subjective Date/Time Seen: 10/16/20 13:25 Interval history: Patient sitting up in chair. Alert and Oriented. No complaints of pain. Concern about loss of dentures and personal belongings from facility. Review of Systems Constitutional: Constitutional: Reports as per HPI, Reports fatigue and Reports weakness Cardiovascular: Cardiovascular: Denies chest pain, Denies lightheadedness and Denies palpitations Respiratory: Respiratory: Denies cough, Denies dyspnea and Denies wheezing Gastrointestinal: Gastrointestinal: Denies diarrhea, Denies nausea and Denies vomiting Genitourinary: Comments: [place] Cath Musculoskeletal: Musculoskeletal: Reports as per HPI Exam Const: General: cooperative, comfortable, no acute distress and awake Nutritional Appearance: obese HENMT: Head: normal to inspection, normocephalic and atraumatic Eyes: Conjunctivae: conjunctivae normal Sclera: sclerae normal Neck: Neck: supple and nontender Resp: Effort & Inspection: normal respiratory effort GI: Inspection: non-distended GI Palp: Yes Soft to palpation, No Tenderness to palpation present (GI) and No Guarding due to palpation present (GI) : General: Yes deferred Urinary Catheter: Urinary Catheter: patent and draining and urine clear Skin: Wounds: wounds noted (see below ) Extrem: Right lower extremity: hip/thigh Details: normal to inspection, knee Details: normal to inspection; no tenderness and lower leg (Below-knee amputation.) Left lower extremity: hip/thigh Details: normal to inspection, knee Details: abnormal ROM ( range of motion deferred secondary to fracture), ankle (no calf tenderness) Details: normal to inspection, abnormal ROM Details: with range as follows ( Minimal range of motion ankle and hindfoot secondary to fusion); no pain with active ROM and no pain with passive ROM and other ( good capillary refill in toes, 2+ DP pulse, light touch sensation intact); no tenderness ( lateral malleolus, anterior ankle and medial ankle) and no swelling ( moderate anterior ankle, moderate lateral ankle) and foot Details: normal capillary refill, toes with normal ROM, vascular exam Details: dorsalis pedis pulse present and normal capillary refill, tendon exam active flexion normal and active extension normal and motor-sensory exam two point discrimination normal and light-touch normal; no tenderness Other: Right BKA with large wound measuring 18.5x14.5x2.0cm in depth. No ability to probe to bone. Tissue 95% slough/necrotic. Some new granulation tissue noted. Internal sutures noted. Moderate serosanguineous drainage. No purulence. Slight malodor. Surrounding tissue with swelling. Improvement in erythema surrounding wound bed. Dressing changed Objective Data Vital Signs Vital Signs: Vital Signs - 24 hr 10/15/20 13:46 10/15/20 14:00 10/15/20 16:00 Temperature 36.9 C Pulse Rate 107 H 104 H 106 H Respiratory Rate 21 H 25 H 22 H Blood Pressure
[2020-10-16 14:19] LABS: Chloride Rand Ur 22 mmol/L (32-290); Chloride/Creatinine Rand Ur 71 (38-318); Creatinine Random Urine 31 mg/dL (20-275)
[2020-10-16] MEDS: EPOETIN ALFA-EPBX 10,000 UNITS/ML VIAL 10000 UNITS SUB-Q (14:42)
--- NOTE | 2020-10-16 16:03 | PM.PNNEP ---
Progress Note: A&P Assessment and Plan (1) Chronic kidney disease, stage 4 (severe): Code(s): N18.4 - Chronic kidney disease, stage 4 (severe) Status: Chronic Assessment and Plan: creatinine has been gradually rising over the years... appears to be stable at around 3 - chronic baseline?? most likely due to diabetes, hypertension, and vascular disease possible element of SARAH(?) -- evaluation so far: - urine electrolytes are non pre renal - urine eosinophils are negative - urinalysis shows infection - ultrasound shows severe right renal atrophy; left kidney okay creatinine remains relatively stable (2) Metabolic acidosis: Code(s): E87.2 - Acidosis Status: Acute Assessment and Plan: improving at this time follow trend (3) Septic shock: Code(s): A41.9 - Sepsis, unspecified organism; R65.21 - Severe sepsis with septic shock Status: Acute Assessment and Plan: resolved off all pressor therapy remains on antibiotics (4) Hypertension: Qualifiers: Hypertension type: essential hypertension Qualified Code(s): I10 - Essential (primary) hypertension Code(s): I10 - Essential (primary) hypertension Status: Chronic Assessment and Plan: blood pressure rising back to baseline slowly reintroduce antihypertensives (5) Anemia: Code(s): D64.9 - Anemia, unspecified Status: Chronic Assessment and Plan: due to underlying CKD and acute illness on Epogen follow trend of H/H (6) Type 2 diabetes mellitus: Qualifiers: Chronic kidney disease stage: stage 4 (severe) Diabetes mellitus complication detail: with chronic kidney disease Diabetes mellitus complication status: with kidney complications Diabetes mellitus nursing home insulin use: without nursing home use Qualified Code(s): E11.22 - Type 2 diabetes mellitus with diabetic chronic kidney disease; N18.4 - Chronic kidney disease, stage 4 (severe) Code(s): E11.9 - Type 2 diabetes mellitus without complications Status: Acute Assessment and Plan: follow accuchecks on SSI Will continue to follow. Subjective Date/time seen: 10/16/20 16:03 Chart reviewed -- overall improvement in condition; more awake and alert at this time; remains hemodynamically stable for the last 48 hours if not longer; respiratory status stable; no other acute issues/events overnight or earlier this morning. Exam Narrative: Exam Narrative: General: WD/WN female in NAD Heart: normal S1 and S2; no rub Lungs: clear to auscultation Abdomen: soft, nontender, nondistended, positive bowel sounds Extremities: no cyanosis or clubbing; 1+ edema; s/p right BKA Skin: warm and dry Objective Data Vital Signs Vital Signs: Vital Signs Temp Pulse Resp BP Pulse Ox 10/16/20 14:09 36.2 C L 91 16 126/58 L 10/16/20 13:59 87 20 10/16/20 13:51 86 20 10/16/20 12:00 91 10/16/20 10:00 35.9 C L 85 18 146/57 H 96 10/16/20 08:57 87 10/16/20 08:27 94 20 10/16/20 08:17 95 20 10/16/20 08:00 100 10/16/20 04:00 36.2 C L 94 18 114/83 95 10/16/20 03:31 88 20 10/16/20 03:24 92 24 H 10/16/20 00:00 36.2 C L 91 20 127/61 98 10/15/20 20:24 92 20 10/15/20 20:11 100 20 10/15/20 20:00 36.3 C L 103 H 20 132/50 L 95 Intake/Output Intake/Output: Intake & Output 10/13/20 10/14/20 10/15/20 10/16/20 23:59 23:59 23:59 23:59 Intake Total 2972 3612 1800 1750 Output Total 1375 4000 2950 1125 Balance 2746 -317 -1293 284 Meds/Results Medications: Active Medications Generic Name Dose Route Start Last Admin Trade Name Jessica PRN Reason Stop Dose Admin Acetaminophen 650 mg 10/14/20 21:52 10/14/20 22:14 Acetaminophen 325 Mg Tablet PO 650 mg Q6H PRN Administration Mild Pain (1-3) or Fever Albuterol 2.5 mg
[2020-10-16 17:03] LABS: Glucose Point of Care 110 mg/dl (65-105)
[2020-10-16] MEDS: ATORVASTATIN 40 MG TABLET PO (20:59)
[2020-10-16] MEDS: ACETAMINOPHEN 325 MG TABLET 650 MG PO (21:04)
[2020-10-16] MEDS: metroNIDAZOLE 500 MG/ISO 100ML 500 MG/100 ML BAG 1000 MG IVPB (21:05)
[2020-10-17] VITALS (17 sets, daily range): BP systolic 139–152; BP diastolic 56–83; PULSE 73–100; RESP 16–24; TEMP 35.9–36.6; O2SAT 96–100
[2020-10-17] MEDS: IPRATROPIUM BR 0.02% INH SOLN 0.5 MG/2.5 ML VIAL INHALATION ×4 (01:18→21:13)
[2020-10-17] MEDS: ALBUTEROL SULFATE NEB 2.5 MG/0.5 ML INH INHALATION ×4 (01:19→21:13)
[2020-10-17] MEDS: metroNIDAZOLE 500 MG/ISO 100ML 500 MG/100 ML BAG 100 MG IVPB ×3 (05:09→21:00)
[2020-10-17 06:07] LABS: Hematocrit 27.9 % (37.0-47.0); Hemoglobin 8.4 g/dL (12.0-15.0); Mean Corpuscular HGB Conc 30.1 g/dl (32-36); Mean Corpuscular Hemoglobin 28.6 pg (26-34); Mean Corpuscular Volume 94.9 fl (80-100); Mean Platelet Volume 10.6 fl (7.4-10.4); Platelet Count Result 268 k/mm3 (150-375); Red Blood Count 2.94 M/mm3 (4.2-5.4); Red Cell Distribution Width 15.1 % (11.5-14.5)
[2020-10-17] MEDS: LEVOTHYROXINE SODIUM 25 MCG TABLET PO (06:17)
[2020-10-17 06:21] LABS: Alanine Aminotransferase 10 U/L (4-35); Albumin Level 2.1 g/dL (3.5-5.1); Alkaline Phosphatase 64 U/L (38-126); Anion Gap 6 mmol/L (8-16); Aspartate Amino Transferase 26 U/L (14-36); Bilirubin,Total 0.2 mg/dL (0.2-1.3); Blood Urea Nitrogen 52 mg/dL (7-17); Calcium 7.4 mg/dL (8.4-10.2); Carbon Dioxide 23 mmol/L (22-30); Chloride 108 mmol/L (98-107); Estimated CRCL calculation 23 ml/min; Estimated Glomerular Filt Rate 16; Glucose 92 mg/dL (65-105); Magnesium 1.8 mg/dL (1.6-2.3); Phosphorus 3.5 mg/dL (2.5-4.5); Sodium 137 mmol/L (137-145)
[2020-10-17 07:55] LABS: Glucose Point of Care 95 mg/dl (65-105)
[2020-10-17] MEDS: amLODIPine BESYLATE 5 MG TABLET 10 MG PO (09:20)
[2020-10-17] MEDS: HEPARIN SODIUM 5,000 UNITS/ML VIAL 5000 UNITS SUB-Q ×2 (09:21→20:45)
[2020-10-17] MEDS: cloNIDine HCL 0.1 MG TABLET PO ×2 (09:21→17:38)
[2020-10-17] MEDS: ASPIRIN 81 MG ENTERIC TABLET PO (09:21)
[2020-10-17] MEDS: METOPROLOL SUCCINATE EXT REL 25 MG TABCR PO (09:21)
[2020-10-17] MEDS: hydrALAZINE HCL 50 MG TABLET 100 MG PO ×3 (09:21→17:38)
[2020-10-17] MEDS: PANTOPRAZOLE SODIUM IV 40 MG VIAL IV PUSH (09:22)
[2020-10-17] MEDS: MINERAL OIL/WHITE PETROLATUM OINTMENT 1 APPLIC EACH EYE ×2 (09:22→20:59)
[2020-10-17] MEDS: SOD HYPOCHLORITE 1/4 STRENGTH 473 ML 1 APPLIC TOPICAL ×2 (09:41→20:46)
--- NOTE | 2020-10-17 09:41 | PM.PNCARD ---
Progress Note: A&P Assessment and Plan (1) Bradycardia: Code(s): R00.1 - Bradycardia, unspecified Status: Resolved Assessment and Plan: initial EKG showed sinus bradycardia 44 bpm Bradycardia was multifactorial in the setting of sepsis, polypharmacy including BB (Metoprolol 200 mg daily), CCB (verapamil 240 mg daily), and clonidine Heart rate stable now and she is resumed on low dose Metoprolol and Clonidine. Will keep Off Verapmail Patient is stable for discharge from cardiac standpoint. Will sign off. Please don't hesitate to call with any questions (2) Chronic kidney disease (CKD) stage G4/A1, severely decreased glomerular filtration rate (GFR) between 15-29 mL/min/1.73 square meter and albuminuria creatinine ratio less than 30 mg/g: Code(s): N18.4 - Chronic kidney disease, stage 4 (severe) Status: Acute Assessment and Plan: Creatinine close to baseline around 2.9-3.0 (3) Hypertension: Qualifiers: Hypertension type: essential hypertension Qualified Code(s): I10 - Essential (primary) hypertension Code(s): I10 - Essential (primary) hypertension Status: Chronic Assessment and Plan: Hypotensive on admission in the setting of sepsis. Now BP stable. She is being resumed on some of her antihypertensives Subjective Date/time seen: 10/17/20 09:41 No overnight events. She denies chest pain or dyspnea. Review of Systems Review of Systems: All systems reviewed & are unremarkable except as noted in HPI and below Exam Narrative: Exam Narrative: Morbidly obese. S/p right BKA. Const: General: confusion; No acute distress Nutritional Appearance: obese Orientation/consciousness: confusion Limitations: altered mental status HENMT: Head: normal to inspection and atraumatic Face and sinus: normal facial exam Eyes: General: appearance normal, both eyes and all related structures Pupils: Equal, round and reactive pupils present EOM: EOMs intact bilaterally Neck: Neck: normal visual inspection and no JVD Chest: Chest palpation & inspection: normal inspection of the chest Resp: Effort & Inspection: normal respiratory effort and no respiratory distress Auscultation: diminished lung sounds Cardio: Jugular venous distension: no JVD Rate: regular rate Heart sounds: S1 normal heart sound present, S2 normal heart sound present and no murmurs GI: Inspection: normal to inspection Auscultation: normal bowel sounds Skin: General skin exam: pallor Neuro: General: confusion Cranial nerves: Yes Equal, round and reactive pupils present Extrem: General: amputation noted (R BKA covered with dressing) Below the knee: right Objective Data Vital Signs Vital Signs: Vital Signs - 24 hr 10/16/20 10:00 10/16/20 12:00 10/16/20 13:51 Temperature 35.9 C L Pulse Rate 85 91 86 Respiratory Rate 18 20 Blood Pressure 146/57 H Pulse Oximetry 96 10/16/20 13:59 10/16/20 14:09 10/16/20 16:00 Temperature 36.2 C L 36.6 C Pulse Rate 87 91 87 Respiratory Rate 20 16 16 Blood Pressure 126/58 L 128/89 Pulse Oximetry 95 10/16/20 19:45 10/16/20 19:56 10/16/20 20:00 Temperature 36.1 C L Pulse Rate 80 76 73 Respiratory Rate 16 16 18 Blood Pressure 135/57 L Pulse Oximetry 96 10/17/20 00:00 10/17/20 01:20 10/17/20 01:32 Temperature 36.1 C L Pulse Rate 79 80 79 Respiratory Rate 18 24 H 20 Blood Pressure 139/83 Pulse Oximetry 98 10/17/20 04:00 10/17/20 07:50 10/17/20 08:00 Temperature 36.3 C L 36.6 C Pulse Rate 81 84 100 Respiratory Rate 18 20 16 Blood Pressure 147/77 H 142/58 H Pulse Oximetry 96 97 100 10/17/20 09:21 Temperature Pulse Rate 78 Respiratory Rate Blood Pressure Pulse Oximetry Intake/Output Intake/Output: Intake & Output 10/14/20 10/15/20 10/16/20 10/17/20 23:59 23:59 23:59 23:59 Intake Total 3612 1800 2050 300 Output Total 4000 2950 1121 750 Balance -692 -9546 920 -177 Meds/Results Med
--- NOTE | 2020-10-17 10:54 | PM.PNNEP ---
Progress Note: A&P Assessment and Plan (1) Chronic kidney disease, stage 4 (severe): Code(s): N18.4 - Chronic kidney disease, stage 4 (severe) Status: Chronic Assessment and Plan: appears to be stable at around 3ish range follows with Dr. Adrian Pena for CKD management most likely due to diabetes, hypertension, and vascular disease possible element of SARAH(?) -- evaluation so far: - urine electrolytes are non pre renal - urine eosinophils are negative - urinalysis shows infection - ultrasound shows severe right renal atrophy; left kidney okay follow trend of labs (2) Metabolic acidosis: Code(s): E87.2 - Acidosis Status: Acute Assessment and Plan: improving at this time follow trend (3) Septic shock: Code(s): A41.9 - Sepsis, unspecified organism; R65.21 - Severe sepsis with septic shock Status: Acute Assessment and Plan: resolved off all pressor therapy remains on antibiotics (4) Hypertension: Qualifiers: Hypertension type: essential hypertension Qualified Code(s): I10 - Essential (primary) hypertension Code(s): I10 - Essential (primary) hypertension Status: Chronic Assessment and Plan: blood pressure rising back to baseline slowly reintroduce antihypertensives (5) Anemia: Code(s): D64.9 - Anemia, unspecified Status: Chronic Assessment and Plan: due to underlying CKD and acute illness on Epogen follow trend of H/H (6) Type 2 diabetes mellitus: Qualifiers: Chronic kidney disease stage: stage 4 (severe) Diabetes mellitus complication detail: with chronic kidney disease Diabetes mellitus complication status: with kidney complications Diabetes mellitus retirement insulin use: without retirement use Qualified Code(s): E11.22 - Type 2 diabetes mellitus with diabetic chronic kidney disease; N18.4 - Chronic kidney disease, stage 4 (severe) Code(s): E11.9 - Type 2 diabetes mellitus without complications Status: Acute Assessment and Plan: follow accuchecks on SSI Will continue to follow. Subjective Date/time seen: 10/17/20 10:54 Appears to be doing better in general; eating and drinking okay; sitting up in chair watching TV; no apparent distress voiced; no events/issues overnight or earlier this AM; diarrhea appears to have resolved; no other acute complaints voiced at the time of my visit. Exam Narrative: Exam Narrative: General: WD/WN female in NAD Heart: normal S1 and S2; no rub Lungs: clear to auscultation Abdomen: soft, nontender, nondistended, positive bowel sounds Extremities: no cyanosis or clubbing; 1+ edema; s/p right BKA Skin: warm and dry Objective Data Vital Signs Vital Signs: Vital Signs Temp Pulse Resp BP Pulse Ox 10/17/20 09:21 78 10/17/20 08:00 36.6 C 79 16 142/58 H 100 10/17/20 07:50 84 20 97 10/17/20 04:00 36.3 C L 81 18 147/77 H 96 10/17/20 01:32 79 20 10/17/20 01:20 80 24 H 10/17/20 00:00 36.1 C L 79 18 139/83 98 10/16/20 20:00 36.1 C L 73 18 135/57 L 96 10/16/20 19:56 76 16 10/16/20 19:45 80 16 10/16/20 16:00 36.6 C 87 16 128/89 95 10/16/20 14:09 36.2 C L 91 16 126/58 L 10/16/20 13:59 87 20 10/16/20 13:51 86 20 10/16/20 12:00 91 Intake/Output Intake/Output: Intake & Output 10/14/20 10/15/20 10/16/20 10/17/20 23:59 23:59 23:59 23:59 Intake Total 3612 1800 2050 300 Output Total 4000 2950 1125 750 Balance -388 -1150 925 -450 Meds/Results Medications: Active Medications Generic Name Dose Route Start Last Admin Trade Name Jessica PRN Reason Stop Dose Admin Acetaminophen 650 mg 10/14/20 21:52 10/16/20 21:04 Acetaminophen 325 Mg Tablet PO 650 mg Q6H PRN Administration Mild Pain (1-3) or Fever Albuterol 2.5 mg 10/12/20 14:00 10/17
--- NOTE | 2020-10-17 11:05 | PM.PNORT ---
Progress Note: A&P Assessment and Plan (1) Right below-knee amputee: Onset Date: 09/28/20 Code(s): Z89.511 - Acquired absence of right leg below knee Status: Acute Assessment and Plan: Nineteen days status post right below-knee amputation complicated by wound dehiscence. Overall patient continues to show signs of improvement in medical condition. She is alert and oriented x3. Swelling in the right hand and arm have resolved. She still has some moderate swelling in the left arm. Her facial swelling is improved. Right below-knee amputation dressing changed this morning. Moderate serous drainage and necrotic tissue but no signs of infection. Discussed with patient. Continue with Dakin's solution dressing changes b.i.d.. We will plan for debridement when medically stable. Subjective Subjective Date/Time Seen: 10/17/20 9:05 Principal diagnosis: right below-knee amputation Interval history: patient transferred to general medical floor October 15. Awake and alert at this time. Fairly comfortable at rest. Complains of left arm swelling and right leg pain with movement. Exam Const: General: cooperative, comfortable, no acute distress and awake Nutritional Appearance: obese HENMT: Head: normal to inspection, normocephalic and atraumatic Eyes: Conjunctivae: conjunctivae normal Sclera: sclerae normal Neck: Neck: supple and nontender Resp: Effort & Inspection: normal respiratory effort GI: Inspection: non-distended GI Palp: Yes Soft to palpation, No Tenderness to palpation present (GI) and No Guarding due to palpation present (GI) : General: Yes deferred Urinary Catheter: Urinary Catheter: patent and draining and urine clear Skin: Wounds: wounds noted (see below ) Extrem: Right lower extremity: hip/thigh Details: normal to inspection, knee Details: normal to inspection; no tenderness and lower leg (Below-knee amputation.) Left lower extremity: hip/thigh Details: normal to inspection, knee Details: abnormal ROM ( range of motion deferred secondary to fracture), ankle (no calf tenderness) Details: normal to inspection, abnormal ROM Details: with range as follows ( Minimal range of motion ankle and hindfoot secondary to fusion); no pain with active ROM and no pain with passive ROM and other ( good capillary refill in toes, 2+ DP pulse, light touch sensation intact); no tenderness ( lateral malleolus, anterior ankle and medial ankle) and no swelling ( moderate anterior ankle, moderate lateral ankle) and foot Details: normal capillary refill, toes with normal ROM, vascular exam Details: dorsalis pedis pulse present and normal capillary refill, tendon exam active flexion normal and active extension normal and motor-sensory exam two point discrimination normal and light-touch normal; no tenderness Other: Right BKA with large wound measuring 18.5x14.5x2.0cm in depth. No ability to probe to bone. Tissue 95% slough/necrotic. Some new granulation tissue noted. Internal sutures noted. Moderate serosanguineous drainage. No purulence. Slight malodor. Surrounding tissue with swelling. Improvement in erythema surrounding wound bed. Dressing changed today Objective Data Vital Signs Vital Signs: Vital Signs - 24 hr 10/16/20 12:00 10/16/20 13:51 10/16/20 13:59 Temperature Pulse Rate 91 86 87 Respiratory Rate 20 20 Blood Pressure Pulse Oximetry 10/16/20 14:09 10/16/20 16:00 10/16/20 19:45 Temperature 97.1 F L 97.9 F Pulse Rate 91 87 80 Respiratory Rate 16 16 16 Blood Pressure 126/58 L 128/89 Pulse Oximetry 95 10/16/20 19:56 10/16/20 20:00 10/17/20 00:00 Temperature 96.9 F L 97.0 F L Pulse Rate 76 73 79 Respiratory Rate 16 18 18 Blood Pressure 135/57 L 139/83 Pulse Oximetry 96 98 10/17/20 01:20 10/17/20 01:32 10/17/20 04:00 Temperature 97.4 F L Pulse Rate 80 79 81 Respiratory Rate 24 H 20 18 Blood Pressure 147/77 H Pulse Oximetry 96 10/17/20 07:50 10/17/20 08:00 0
[2020-10-17 11:39] LABS: Glucose Point of Care 111 mg/dl (65-105)
--- NOTE | 2020-10-17 12:56 | PCDIET ---
Received consult for low albumin, low protein, and poor wound healing. Added Glucerna Nutritional Shake BID providing 220 kcals and 10 gm protein to promote proper wound healing and meet estimated protein needs.
--- NOTE | 2020-10-17 13:01 | PCNSR ---
On 10/17/20, the student, Velma Frazier, provided care and [facility]. I have reviewed the student's documentation and agree with the findings.
[2020-10-17 17:12] LABS: Glucose Point of Care 125 mg/dl (65-105)
--- NOTE | 2020-10-17 17:37 | PM.IMPN ---
Progress Note: A&P Assessment and Plan (1) UTI (urinary tract infection): Qualifiers: Hematuria presence: without hematuria Urinary tract infection type: acute cystitis Qualified Code(s): N30.00 - Acute cystitis without hematuria Code(s): N39.0 - Urinary tract infection, site not specified Status: Acute Assessment and Plan: e coli & pseudomonas, on cefepime Continue antibiotics as noted (2) Acute osteomyelitis of fibula: Code(s): M86.169 - Other acute osteomyelitis, unspecified tibia and fibula Status: Acute Assessment and Plan: knee x-rays as follows: 1. Irregularity of the bone margin of the fibular stump, which is indeterminate for osteomyelitis. 2. Severe right knee osteoarthritis. 3. Large knee joint effusion with loose bodies. patient has a history of right below the knee amputation from last month. The patient is 19 days post right [id number] amputation complicated by wound dehiscence. The patient has some necrotic tissues Wells lost thing to that right [id number] amputation. She has some yellow drainage. Dr. faustin is seeing the patient in he noted moderate serous drainage with necrotic tissue but no signs of infection. He recommended to continue with back in solution dressing changes b.i.d.. Will plan for debridement when the patient is medically stable. (3) Septic shock: Code(s): A41.9 - Sepsis, unspecified organism; R65.21 - Severe sepsis with septic shock Status: Acute Assessment and Plan: RESOLVED 10/14 pressors off Continue to monitor Continue IV vancomycin and cefepime (day 3), metronidazole (day 2) Orthopedics on consult possible intervention; await recommendations Knee x-ray with concerns for tubular osteomyelitis Cellulitis of right lower extremity UTI with e coli and pseudomonas Blood culture with 1/2 growing coag negative staph Remote history of C diff. (4) Neutrophilic leukocytosis: Code(s): D72.9 - Disorder of white blood cells, unspecified Status: Acute Assessment and Plan: possibly secondary to infection Patient on IV antibiotic (5) Protein-calorie malnutrition, moderate: Code(s): E44.0 - Moderate protein-calorie malnutrition Status: Acute Assessment and Plan: Feed as tolerated (6) Normal anion gap metabolic acidosis: Code(s): E87.2 - Acidosis Status: Acute Assessment and Plan: continues to have normal anion gap metabolic acidosis Will check for urine electrolytes Lactic acid within normal limits (7) Acute on chronic respiratory failure with hypoxia and hypercapnia: Code(s): J96.21 - Acute and chronic respiratory failure with hypoxia; J96.22 - Acute and chronic respiratory failure with hypercapnia Status: Acute Assessment and Plan: presented with respiratory acidosis and increased lethargy requiring intubation Was also noted to be hypoxic Chest x-ray with possible pulmonary vascular congestion 10/15 Doing well off vent, room air daytime, 2 L nighttime (8) Acute renal failure superimposed on stage 4 chronic kidney disease: Qualifiers: Acute renal failure type: unspecified Qualified Code(s): N17.9 - Acute kidney failure, unspecified; N18.4 - Chronic kidney disease, stage 4 (severe) Code(s): N17.9 - Acute kidney failure, unspecified; N18.4 - Chronic kidney disease, stage 4 (severe) Status: Acute Assessment and Plan: 10/14 creatinine 2.8 Renal ultrasound is follows: 1. No left hydronephrosis. Severe right renal atrophy. 2. Indeterminate lesions on CT not identified on this study. Consider follow-up nonemergent kidney ultrasound after patient is extubated, able to position appropriately for nonemergent evaluation of these lesions. continue IV hydration and pressors Strict eyes and (9) Encephalopathy: Code(s): G93.40 - Encephalopathy, unspecified Status: Resolved Assessment and Plan
--- NOTE | 2020-10-17 20:32 | WPDINFPN2 ---
Progress Note: A&P Additional Plan 1. Clostridium difficile colitis clinically doing well. No diarrhea. Formed stool today as per patient. Patient is currently on oral vancomycin day 10 of 14 and metronidazole day 7. Continue current treatment to complete a total of 14 days. WBC count is stable at 6. 2. Status post Septic shock currently on cefepime and vancomycin day 8. Source of infection Most likely secondary to surgical site infection. 3. Right BKA stump site infection. Wound was examined. Extensive necrosis. will require more debridement. Will defer to surgery. Subjective Date/time seen: 10/17/20 20:32 Exam Narrative: Exam Narrative: no complaints today. HENMT: Head: normal to inspection Neck: Neck: normal visual inspection Cardio: Heart sounds: S1 normal heart sound present and S2 normal heart sound present GI: Auscultation: normal bowel sounds Skin: General skin exam: other ( Right AKA site soft tissue necrosis with minimal surrounding erythema.) Neuro: General: patient oriented x3 Extrem: General: normal to inspection Objective Data Vital Signs Vital Signs: Vital Signs - 24 hr 10/17/20 00:00 10/17/20 01:20 10/17/20 01:32 Temperature 36.1 C L Pulse Rate 79 80 79 Respiratory Rate 18 24 H 20 Blood Pressure 139/83 Pulse Oximetry 98 10/17/20 04:00 10/17/20 07:50 10/17/20 08:00 Temperature 36.3 C L 36.6 C Pulse Rate 81 84 79 Respiratory Rate 18 20 16 Blood Pressure 147/77 H 142/58 H Pulse Oximetry 96 97 100 10/17/20 09:21 10/17/20 11:30 10/17/20 12:00 Temperature 36.0 C L Pulse Rate 78 82 81 Respiratory Rate 18 Blood Pressure 141/77 H Pulse Oximetry 98 10/17/20 14:18 10/17/20 14:30 10/17/20 16:00 Temperature Pulse Rate 88 88 84 Respiratory Rate 20 20 Blood Pressure Pulse Oximetry 10/17/20 16:05 Temperature 36.4 C Pulse Rate 87 Respiratory Rate 18 Blood Pressure 152/67 H Pulse Oximetry 100 Intake/Output Intake/Output: Intake & Output 10/14/20 10/15/20 10/16/20 10/17/20 23:59 23:59 23:59 23:59 Intake Total 3612 1800 2050 450 Output Total 4000 2950 1125 2050 Balance -388 -1150 925 -1600 Meds/Results Medications: Active Medications Generic Name Dose Route Start Last Admin Trade Name Jessica PRN Reason Stop Dose Admin Acetaminophen 650 mg 10/14/20 21:52 10/16/20 21:04 Acetaminophen 325 Mg Tablet PO 650 mg Q6H PRN Administration Mild Pain (1-3) or Fever Albuterol 2.5 mg 10/12/20 14:00 10/17/20 14:17 Albuterol Sulfate Neb 2.5 Mg/0.5 Ml Inh INHALATION 2.5 mg Q6HRT REJI Administration Amlodipine Besylate 10 mg 10/16/20 09:00 10/17/20 09:20 Amlodipine Besylate 5 Mg Tablet PO 10 mg QAM REJI Administration Aspirin 81 mg 10/15/20 09:00 10/17/20 09:21 Aspirin 81 Mg Enteric Tablet PO 81 mg DAILY REJI Administration Atorvastatin Calcium 40 mg 10/11/20 21:00 10/16/20 20:59 Atorvastatin 40 Mg Tablet PO 40 mg HS REJI Administration Clonidine HCl 0.1 mg 10/15/20 09:00 10/17/20 17:38 Clonidine Hcl 0.1 Mg Tablet PO 0.1 mg BID REJI Administration Dextrose 12.5 gm 10/11/20 15:56 Dextrose 50% 25 Gm/50 Ml Syringe IV PUSH PRN PRN Hypoglycemia Protocol Epoetin Gregory-epbx 10,000 units 10/13/20 12:30 10/16/20 14:42 Epoetin Gregory-Epbx 10,000 Units/Ml Vial SUB-Q 10,000 units MOWEFR REJI Administration Glucagon 1 mg 10/11/20 15:56 Glucagon For Inj 1 Mg Vial IM PRN PRN Hypoglycemia Protocol Glucose 15 gm 10/11/20 15:56 Glucose Oral Gel 15 Gm Of Glucse In 37.5 Gm Tube PO PRN PRN Hypoglycemia Protocol Heparin Sodium (Porcine) 5,000 units 10/16/20 09:00 10/17/20 09:21 Heparin Sodium 5,000 Units/Ml Vial SUB-Q 5,000 units Q12HR REJI Administration Hydralazine HCl 10 mg 10/14/20 09:36 10/15/20 12:24 Hydralazine Hcl 20 Mg/Ml Vial IV PUSH 10 mg Q4H PRN Administration Blood Pressure
[2020-10-17] MEDS: ATORVASTATIN 40 MG TABLET PO (20:45)
[2020-10-17 21:12] LABS: Glucose Point of Care 140 mg/dl (65-105)
[2020-10-17] MEDS: ACETAMINOPHEN 325 MG TABLET 650 MG PO (22:00)
[2020-10-17] MEDS: VANCOMYCIN ORAL 125 MG/2.5 ML SYRUP PO (23:40)
[2020-10-18] VITALS (18 sets, daily range): BP systolic 126–147; BP diastolic 50–70; PULSE 78–100; RESP 16–20; TEMP 36–36.1; O2SAT 95–98
[2020-10-18] MEDS: ALBUTEROL SULFATE NEB 2.5 MG/0.5 ML INH INHALATION ×4 (03:18→21:11)
[2020-10-18] MEDS: IPRATROPIUM BR 0.02% INH SOLN 0.5 MG/2.5 ML VIAL INHALATION ×4 (03:18→21:11)
[2020-10-18] MEDS: LEVOTHYROXINE SODIUM 25 MCG TABLET PO (05:49)
[2020-10-18] MEDS: metroNIDAZOLE 500 MG/ISO 100ML 500 MG/100 ML BAG 100 MG IVPB ×3 (05:49→21:03)
[2020-10-18] MEDS: VANCOMYCIN ORAL 125 MG/2.5 ML SYRUP PO ×4 (05:49→23:32)
[2020-10-18 06:12] LABS: Basophils Percent Auto 0.7 % (0.2-1.2); Eosinophils Absolute Auto 0.1 K/mm3 (0-0.3); Eosinophils Percent Auto 1.6 % (0-4.4); Hemoglobin 8.2 g/dL (12.0-15.0); Immature Granulocyte Percent A 1.7 % (0-0.5); Lymphocytes Absolute Auto 0.71 K/mm3 (0.9-3.2); Lymphocytes Percent Auto 12.3 % (18.3-44.2); Mean Corpuscular HGB Conc 29.3 g/dl (32-36); Mean Corpuscular Hemoglobin 28.2 pg (26-34); Mean Corpuscular Volume 96.2 fl (80-100); Monocytes Absolute Auto 0.6 K/mm3 (0.1-0.6); Monocytes Percent Auto 10.4 % (2.6-8.5); Neutrophils Absolute Auto 4.2 K/mm3 (1.3-6.7); Neutrophils Percent Auto 73.3 % (45.5-73.1); Platelet Count Result 230 k/mm3 (150-375); Red Blood Count 2.91 M/mm3 (4.2-5.4); Red Cell Distribution Width 15.1 % (11.5-14.5); White Blood Count 5.8 K/mm3 (4.5-10.0)
[2020-10-18 06:24] LABS: Alanine Aminotransferase 11 U/L (4-35); Alkaline Phosphatase 59 U/L (38-126); Anion Gap 4 mmol/L (8-16); Aspartate Amino Transferase 28 U/L (14-36); Bilirubin,Total 0.2 mg/dL (0.2-1.3); Blood Urea Nitrogen 48 mg/dL (7-17); Calcium 7.4 mg/dL (8.4-10.2); Carbon Dioxide 25 mmol/L (22-30); Chloride 108 mmol/L (98-107); Estimated CRCL calculation 23 ml/min; Estimated Glomerular Filt Rate 16; Glucose 96 mg/dL (65-105); Magnesium 1.7 mg/dL (1.6-2.3); Potassium 3.9 mmol/L (3.4-5.0); Sodium 137 mmol/L (137-145)
[2020-10-18 07:37] LABS: Glucose Point of Care 101 mg/dl (65-105)
[2020-10-18 08:12] LABS: Platelet Estimate Adequate (Adequate); Poikilocytosis 1+ (NORMAL)
[2020-10-18 08:13] LABS: Anisocytosis 1+ (NORMAL)
[2020-10-18] MEDS: ASPIRIN 81 MG ENTERIC TABLET PO (09:38)
[2020-10-18] MEDS: hydrALAZINE HCL 50 MG TABLET 100 MG PO ×3 (09:38→18:18)
[2020-10-18] MEDS: HEPARIN SODIUM 5,000 UNITS/ML VIAL 5000 UNITS SUB-Q ×2 (09:38→20:35)
[2020-10-18] MEDS: amLODIPine BESYLATE 5 MG TABLET 10 MG PO (09:38)
[2020-10-18] MEDS: METOPROLOL SUCCINATE EXT REL 25 MG TABCR PO (09:39)
[2020-10-18] MEDS: PANTOPRAZOLE SODIUM IV 40 MG VIAL IV PUSH (09:39)
[2020-10-18] MEDS: SOD HYPOCHLORITE 1/4 STRENGTH 473 ML 1 APPLIC TOPICAL ×2 (09:41→20:36)
[2020-10-18] MEDS: cloNIDine HCL 0.1 MG TABLET PO ×2 (10:04→18:18)
[2020-10-18 12:30] LABS: Glucose Point of Care 150 mg/dl (65-105)
[2020-10-18] MEDS: EPOETIN ALFA-EPBX 10,000 UNITS/ML VIAL 10000 UNITS SUB-Q (13:00)
--- NOTE | 2020-10-18 13:03 | PM.PNORT ---
Progress Note: A&P Assessment and Plan (1) Infection of right below knee amputation: Code(s): T87.43 - Infection of amputation stump, right lower extremity Status: Acute Assessment and Plan: Twenty days status post right below-knee amputation complicated by initial hematoma followed by wound dehiscence and possible superficial infection although cultures from the wound have been negative. There is some improvement in the appearance of the stump however there is a large amount of necrotic tissue. She appears to be medically stable to be able to proceed to the operating room to undergo debridement. I have discussed this with her. She is ready and would like to proceed with debridement of the right leg. Risks, benefits and alternatives discussed in detail. Discussed nonoperative and operative treatment options with the patient. Risks and benefits of each as well as alternatives were reviewed. All of the patient's questions were answered. The risks of surgery reviewed including but not limited to: Neurovascular damage, wound complication, infection, blood clot, pulmonary embolus, stroke, myocardial infarction, and anesthetic risks up to and including . Continued pain and possible dysfunction were explained. Specific risks of the procedure including later recurrence of deformity. No guarantees were offered. If complications occur, the patient understands the need for further treatment, possible further surgery. Patient verbalizes understanding and wishes to proceed. PLAN: Right below-knee amputation stump debridement, possible application wound VAC. Subjective Subjective Date/Time Seen: 10/18/20 13:03 Post Op day: 20 Principal diagnosis: Right below-knee amputation Interval history: states pain right leg has improved. Tolerating diet. No difficulty with breathing or shortness of breath. Review of Systems Constitutional: Constitutional: Denies fever(s) Eyes: Eyes: Denies blurry vision ENT: Reports Normal hearing present Cardiovascular: Cardiovascular: Denies chest pain and Denies dyspnea Respiratory: Respiratory: Denies dyspnea and Denies wheezing Gastrointestinal: Gastrointestinal: Denies abdominal pain Genitourinary: Genitourinary: Denies urinary urgency Musculoskeletal: Musculoskeletal: Reports as per HPI and Denies numbness Integumentary/Breasts: Skin/Breast: Reports changing lesions, Reports dry skin, Reports sores and Reports other ( Skin changes with psoriatic arthritis) Neurologic: Reports Normal hearing present, Denies behavioral changes, Denies confusion, Denies numbness and Denies convulsions Psychiatric: Psychiatric: Denies behavioral changes, Denies confusion and Denies hallucinations Endocrine: Endocrine: Denies heat intolerance Hematologic/Lymphatic: Hematologic/Lymphatic: Denies easy bleeding Allergic/Immunologic: Allergic/Immunologic: Denies wheezing Exam Const: General: cooperative, comfortable, no acute distress and awake Nutritional Appearance: obese HENMT: Head: normal to inspection, normocephalic and atraumatic Eyes: Conjunctivae: conjunctivae normal Sclera: sclerae normal Neck: Neck: supple and nontender Resp: Effort & Inspection: normal respiratory effort GI: Inspection: non-distended GI Palp: Yes Soft to palpation, No Tenderness to palpation present (GI) and No Guarding due to palpation present (GI) : General: Yes deferred Urinary Catheter: Urinary Catheter: patent and draining and urine clear Skin: Wounds: wounds noted (see below ) Extrem: Right lower extremity: hip/thigh Details: normal to inspection, knee Details: normal to inspection; no tenderness and lower leg (Below-knee amputation.) Left lower extremity: hip/thigh Details: normal to inspection, knee Details: abnormal ROM ( range of motion deferred secondary to fracture), ankle (no calf tenderness) Details: normal to inspection, abnormal ROM Details: with range as follows ( Minimal range
--- NOTE | 2020-10-18 16:33 | PM.PNNEP ---
Progress Note: A&P Assessment and Plan (1) Chronic kidney disease, stage 4 (severe): Code(s): N18.4 - Chronic kidney disease, stage 4 (severe) Status: Chronic Assessment and Plan: appears to be stable at around 3ish range follows with Dr. Adrian Pena for CKD management most likely due to diabetes, hypertension, and vascular disease possible element of SARAH(?) -- evaluation so far: - urine electrolytes are non pre renal - urine eosinophils are negative - urinalysis shows infection - ultrasound shows severe right renal atrophy; left kidney okay follow trend of labs (2) Metabolic acidosis: Code(s): E87.2 - Acidosis Status: Acute Assessment and Plan: improving at this time follow trend (3) Septic shock: Code(s): A41.9 - Sepsis, unspecified organism; R65.21 - Severe sepsis with septic shock Status: Acute Assessment and Plan: resolved off all pressor therapy remains on antibiotics (4) Hypertension: Qualifiers: Hypertension type: essential hypertension Qualified Code(s): I10 - Essential (primary) hypertension Code(s): I10 - Essential (primary) hypertension Status: Chronic Assessment and Plan: blood pressure rising back to baseline slowly reintroduce antihypertensives (5) Anemia: Code(s): D64.9 - Anemia, unspecified Status: Chronic Assessment and Plan: due to underlying CKD and acute illness on Epogen follow trend of H/H (6) Type 2 diabetes mellitus: Qualifiers: Diabetes mellitus custodial insulin use: without custodial use Diabetes mellitus complication status: with kidney complications Diabetes mellitus complication detail: with chronic kidney disease Chronic kidney disease stage: stage 4 (severe) Qualified Code(s): E11.22 - Type 2 diabetes mellitus with diabetic chronic kidney disease; N18.4 - Chronic kidney disease, stage 4 (severe) Code(s): E11.9 - Type 2 diabetes mellitus without complications Status: Acute Assessment and Plan: follow accuchecks on SSI Will continue to follow. Subjective Date/time seen: 10/18/20 16:33 Continues to make slow and steady progress; states she feels like her strength is slowly coming back -- no other issues/events overnight or earlier this AM; eating and drinking okay; no apparent distress voiced at the time of my visit. Exam Narrative: Exam Narrative: General: WD/WN female in NAD Heart: normal S1 and S2; no rub Lungs: clear to auscultation Abdomen: soft, nontender, nondistended, positive bowel sounds Extremities: no cyanosis or clubbing; 1+ edema; s/p right BKA Skin: warm and intact Objective Data Vital Signs Vital Signs: Vital Signs Temp Pulse Resp BP Pulse Ox 10/18/20 14:42 78 18 10/18/20 14:32 80 18 10/18/20 14:00 36.0 C L 88 16 129/50 L 98 10/18/20 12:00 36.1 C L 81 16 143/63 H 98 10/18/20 09:39 100 10/18/20 09:28 100 18 10/18/20 09:18 96 18 10/18/20 09:17 97 10/18/20 08:00 36.1 C L 83 16 147/58 H 97 10/18/20 04:00 36.1 C L 83 18 144/70 H 95 10/18/20 03:26 85 20 10/18/20 03:19 78 20 10/18/20 00:00 78 10/17/20 23:52 35.9 C L 79 18 141/61 H 97 10/17/20 21:20 86 20 10/17/20 21:13 89 20 10/17/20 20:00 36.0 C L 76 18 149/56 H 97 Intake/Output Intake/Output: Intake & Output 10/15/20 10/16/20 10/17/20 10/18/20 23:59 23:59 23:59 23:59 Intake Total 1800 2050 550 500 Output Total 2950 1125 2050 1300 Balance -1150 925 -1500 -800 Meds/Results Medications: Active Medications Generic Name Dose Route Start Last Admin Trade Name Freq PRN Reason Stop Dose Admin Acetaminophen 650 mg 10/14/20 21:52 10/17/20 22:00 Acetaminophen 325 Mg Tablet PO 650 mg Q6H PRN Administration Mild Pain (1-3) or Fever Albuter
--- NOTE | 2020-10-18 16:54 | WPDANESEPP ---
Anes - Eval Pre Procedure Procedure: Operation Date: 10/19/20 09:00 Proposed Procedures p Right Leg Debridement - Avinash Curtis MD Date/Time: 10/18/20 16:54 Pre Op Diagnosis: Debridement infection of right BKA Patient Data Age: 64 Gender: F Height: 1.6 m Weight: 133 kg Last Vital Signs Temp 96.8 F L 10/18/20 16:00 Pulse 88 10/18/20 16:00 Resp 16 10/18/20 16:00 BP 129/50 L 10/18/20 16:00 Pulse Ox 98 10/18/20 16:00 Allergies Allergy/AdvReac Type Severity Reaction Status Date / Time sulfamethoxazole AdvReac Intermediate HIGH Verified 10/11/20 16:16 POTASSIUM trimethoprim AdvReac Intermediate HIGH Verified 10/11/20 16:16 POTASSIUM carvedilol AdvReac Unknown Dizziness Verified 10/11/20 16:16 oxycodone AdvReac Unknown Dizziness Verified 10/11/20 16:16 Home Medications Medication Instructions Recorded Confirmed Type atorvastatin [Lipitor] 40 mg PO HS 02/01/19 10/11/20 History hydralazine 100 mg PO TID 02/01/19 10/11/20 History verapamil 240 mg PO QAM 02/01/19 10/11/20 History clonidine HCl 0.1 mg tablet 0.1 mg PO BID 08/28/20 10/11/20 History doxazosin 2 mg tablet 2 mg PO HS 08/28/20 10/11/20 History levothyroxine 25 mcg capsule 25 mcg PO QAM 08/28/20 10/11/20 History ergocalciferol (vitamin D2) 1,250 mcg PO WEEKLY 09/19/20 10/11/20 History metoprolol tartrate 100 mg PO BID 09/19/20 10/11/20 History acetaminophen 325 mg PO Q6H PRN 09/28/20 10/11/20 History calcium carbonate [Tums] 500 mg PO PRN PRN 09/28/20 10/11/20 History albuterol sulfate 2 puff INHALATION QID PRN #8.5 g 10/06/20 10/11/20 Rx hydrocodone-acetaminophen 1 tablet PO Q6H PRN #30 tablet 10/06/20 10/11/20 Rx vancomycin 125 mg PO Q6HR #48 ea 10/06/20 10/11/20 Rx aspirin [Adult Aspirin EC Low 81 mg PO DAILY 10/11/20 10/11/20 History Strength] cetirizine 10 mg PO DAILY 10/11/20 10/11/20 History ferrous sulfate [Iron (ferrous 325 mg PO DAILY 10/11/20 10/11/20 History sulfate)] Laboratory Tests 10/17/20 10/17/20 10/18/20 17:08 20:43 05:56 WBC 5.8 K/mm3 K/mm3 (4.5-10.0) RBC 2.91 M/mm3 L M/mm3 (4.2-5.4) Hgb 8.2 g/dL L g/dL (12.0-15.0) Hct 28.0 % L % (37.0-47.0) MCV 96.2 fl fl (80-100) MCH 28.2 pg pg (26-34) MCHC 29.3 g/dl L g/dl (32-36) RDW 15.1 % H % (11.5-14.5) Plt Count 230 k/mm3 k/mm3 (150-375) MPV 10.0 fl fl (7.4-10.4) Immature Gran % (Auto) 1.7 % H % (0-0.5) Neut % (Auto) 73.3 % H % (45.5-73.1) Lymph % (Auto) 12.3 % L % (18.3-44.2) [place] % (Auto) 10.4 % H % (2.6-8.5) Eos % (Auto) 1.6 % % (0-4.4) Baso % (Auto) 0.7 % % (0.2-1.2) Lymph # (Auto) 0.71 K/mm3 L K/mm3 (0.9-3.2) [place] # (Auto) 0.6 K/mm3 K/mm3 (0.1-0.6) Eos # (Auto) 0.1 K/mm3 K/mm3 (0-0.3) Baso # (Auto) 0.0 K/mm3 K/mm3 (0.0-0.1) Abs Immat Gran (auto) 0.10 K/mm3 H K/mm3 (0.00-0.031) Absolute Neuts (auto) 4.2 K/mm3 K/mm3 (1.3-6.7) Absolute Nucleated RBC 0.0 K/mm3 K/mm3 (0.0-0.012) Nucleated RBC % 0.0 % % (0.0-0.2) Platelet Estimate Adequate (Adequate) Poikilocytosis 1+ (NORMAL) Anisocytosis 1+ (NORMAL) Sodium Potassium Chloride Carbon Dioxide Anion Gap BUN Creatinine Estim Creat Clear Calc Estimated GFR Glucose POC Capillary Glucose 125 mg/dl H mg/dl 140 mg/dl H mg/dl (65-105) (65-105) Calcium Magnesium Total Bilirubin AST ALT Alkaline Phosphatase Total Protein Albumin 10/18/20 10/18/20 10/18/20 05:56 07:28 12:14 WBC RBC Hgb Hct MCV M
[2020-10-18 17:19] LABS: Glucose Point of Care 146 mg/dl (65-105)
[2020-10-18] MEDS: ATORVASTATIN 40 MG TABLET PO (20:34)
[2020-10-18] MEDS: MINERAL OIL/WHITE PETROLATUM OINTMENT 1 APPLIC EACH EYE (20:35)
[2020-10-18 21:25] LABS: Glucose Point of Care 159 mg/dl (65-105)
[2020-10-19] VITALS (22 sets, daily range): BP systolic 126–171; BP diastolic 56–82; PULSE 78–99; RESP 12–28; TEMP 35.8–37.6; O2SAT 93–99
[2020-10-19] MEDS: ALBUTEROL SULFATE NEB 2.5 MG/0.5 ML INH INHALATION ×4 (03:23→20:16)
[2020-10-19] MEDS: IPRATROPIUM BR 0.02% INH SOLN 0.5 MG/2.5 ML VIAL INHALATION ×4 (03:24→20:16)
[2020-10-19] MEDS: metroNIDAZOLE 500 MG/ISO 100ML 500 MG/100 ML BAG 100 MG IVPB ×3 (05:00→21:12)
[2020-10-19] MEDS: VANCOMYCIN ORAL 125 MG/2.5 ML SYRUP PO ×4 (06:12→23:56)
[2020-10-19] MEDS: LEVOTHYROXINE SODIUM 25 MCG TABLET PO (06:14)
[2020-10-19 06:28] LABS: Estimated CRCL calculation 25 ml/min; Estimated Glomerular Filt Rate 17
--- NOTE | 2020-10-19 06:59 | WPDHPUPDATE1 ---
History and Physical Update Update Date/Time: 10/19/20 06:59 History and Physical has been reviewed, including an updated exam of the patient. There are NO changes in the patient's condition. Risks, benefits, and alternatives have been discussed and questions answered. Patient agrees to proceed with procedure.
[2020-10-19 07:22] LABS: Vancomycin Trough 15.7 ug/mL (10.0-20.0)
--- NOTE | 2020-10-19 07:40 | PC.NURSE ---
Patient to OR per bed. Meds administered according to pre-op. Report to REBECA Ayers.
[2020-10-19] MEDS: amLODIPine BESYLATE 5 MG TABLET 10 MG PO (07:46)
[2020-10-19] MEDS: hydrALAZINE HCL 50 MG TABLET 100 MG PO ×3 (07:47→17:48)
[2020-10-19] MEDS: PANTOPRAZOLE SODIUM IV 40 MG VIAL IV PUSH (07:48)
[2020-10-19 07:57] LABS: Glucose Point of Care 99 mg/dl (65-105)
[2020-10-19] MEDS: LACTATED RINGERS 1,000 ML 30 ML IV CONT (08:06)
--- NOTE | 2020-10-19 08:34 | PM.PNCARD ---
Progress Note: A&P Assessment and Plan (1) Bradycardia: Code(s): R00.1 - Bradycardia, unspecified Status: Resolved Assessment and Plan: initial EKG showed sinus bradycardia 44 bpm Bradycardia was multifactorial in the setting of sepsis, polypharmacy including BB (Metoprolol 200 mg daily), CCB (verapamil 240 mg daily), and clonidine Heart rate stable now and she is resumed on low dose Metoprolol and Clonidine. Will keep Off Verapmail Patient is stable for discharge from cardiac standpoint. Will sign off. Please don't hesitate to call with any questions (2) Chronic kidney disease (CKD) stage G4/A1, severely decreased glomerular filtration rate (GFR) between 15-29 mL/min/1.73 square meter and albuminuria creatinine ratio less than 30 mg/g: Code(s): N18.4 - Chronic kidney disease, stage 4 (severe) Status: Acute Assessment and Plan: Creatinine close to baseline around 2.9-3.0 (3) Hypertension: Qualifiers: Hypertension type: essential hypertension Qualified Code(s): I10 - Essential (primary) hypertension Code(s): I10 - Essential (primary) hypertension Status: Chronic Assessment and Plan: Hypotensive on admission in the setting of sepsis. Now BP stable. She is being resumed on some of her antihypertensives Subjective Date/time seen: 10/19/20 08:34 she is out for surgery today for debridement, discuss finding with her nurse, no new event and no new complaints, she seems to be still in sinus rhythm with no significant bradycardia anymore Objective Data Vital Signs Vital Signs: Vital Signs - 24 hr 10/18/20 09:17 10/18/20 09:18 10/18/20 09:28 Temperature Pulse Rate 96 100 Respiratory Rate 18 18 Blood Pressure Pulse Oximetry 97 10/18/20 09:39 10/18/20 12:00 10/18/20 14:00 Temperature 36.1 C L 36.0 C L Pulse Rate 100 81 88 Respiratory Rate 16 16 Blood Pressure 143/63 H 129/50 L Pulse Oximetry 98 98 10/18/20 14:32 10/18/20 14:42 10/18/20 16:00 Temperature 36.0 C L Pulse Rate 80 78 88 Respiratory Rate 18 18 16 Blood Pressure 129/50 L Pulse Oximetry 98 10/18/20 21:12 10/18/20 21:14 10/18/20 21:20 Temperature Pulse Rate 83 83 81 Respiratory Rate 18 18 Blood Pressure Pulse Oximetry 96 10/18/20 21:51 10/19/20 03:24 10/19/20 03:36 Temperature 36.0 C L Pulse Rate 95 94 91 Respiratory Rate 18 20 18 Blood Pressure 126/58 L Pulse Oximetry 97 10/19/20 06:22 10/19/20 07:22 10/19/20 07:29 Temperature 36.6 C Pulse Rate 78 88 88 Respiratory Rate 18 18 18 Blood Pressure 150/66 H Pulse Oximetry 99 10/19/20 07:30 10/19/20 08:05 Temperature 37.6 C Pulse Rate 90 Respiratory Rate 20 Blood Pressure 171/82 H Pulse Oximetry 96 94 Intake/Output Intake/Output: Intake & Output 10/16/20 10/17/20 10/18/20 10/19/20 23:59 23:59 23:59 23:59 Intake Total 2050 550 1140 450 Output Total 1125 2050 1550 1250 Balance 056 -4634 -044 -601 Meds/Results Medications: Active Medications Generic Name Dose Route Start Last Admin Trade Name Freq PRN Reason Stop Dose Admin Acetaminophen 650 mg 10/14/20 21:52 10/17/20 22:00 Acetaminophen 325 Mg Tablet PO 650 mg Q6H PRN Administration Mild Pain (1-3) or Fever Albuterol 2.5 mg 10/12/20 14:00 10/19/20 07:20 Albuterol Sulfate Neb 2.5 Mg/0.5 Ml Inh INHALATION 2.5 mg Q6HRT REJI Administration Amlodipine Besylate 10 mg 10/16/20 09:00 10/19/20 07:46 Amlodipine Besylate 5 Mg Tablet PO 10 mg QAM REJI Administration Aspirin 81 mg 10/15/20 09:00 10/19/20 08:00 Aspirin 81 Mg Enteric Tablet PO Not Given DAILY REJI Atorvastatin Calcium 40 mg 10/11/20 21:00 10/18/20 20:34 Atorvastatin 40 Mg Tablet PO 40 mg HS REJI Administration Clonidine HCl 0.1 mg 10/15/20 09:00 10/19/20 08:00 Clonidine Hcl 0.1 Mg Tablet PO Not Given BID REJI Dextrose 12.5 gm 10/11/20 15:56 Dextrose 50% 25 Gm/50 Ml
[2020-10-19] MEDS: METOPROLOL SUCCINATE EXT REL 25 MG TABCR PO (08:42)
--- NOTE | 2020-10-19 09:10 | WPDANESEPPF ---
Anes - Initial Pre Proc Eval Procedure: Operation Date: 10/19/20 09:00 Proposed Procedures p Right Leg Debridement - Avinash Curtis MD Date/Time: 10/19/20 09:10 Surgeon: Glory Montanez MD Pre Op Diagnosis: Debridement infection of right BKA Patient Data Age: 64 Gender: F Height: 1.6 m Weight: 134.1 kg Last Vital Signs Temp 99.6 F 10/19/20 08:05 Pulse 90 10/19/20 08:42 Resp 20 10/19/20 08:05 BP 171/82 H 10/19/20 08:05 Pulse Ox 94 10/19/20 08:05 Allergies Allergy/AdvReac Type Severity Reaction Status Date / Time sulfamethoxazole AdvReac Intermediate HIGH Verified 10/11/20 16:16 POTASSIUM trimethoprim AdvReac Intermediate HIGH Verified 10/11/20 16:16 POTASSIUM carvedilol AdvReac Unknown Dizziness Verified 10/11/20 16:16 oxycodone AdvReac Unknown Dizziness Verified 10/11/20 16:16 Home Medications Medication Instructions Recorded Confirmed Type atorvastatin [Lipitor] 40 mg PO HS 02/01/19 10/11/20 History hydralazine 100 mg PO TID 02/01/19 10/11/20 History verapamil 240 mg PO QAM 02/01/19 10/11/20 History clonidine HCl 0.1 mg tablet 0.1 mg PO BID 08/28/20 10/11/20 History doxazosin 2 mg tablet 2 mg PO HS 08/28/20 10/11/20 History levothyroxine 25 mcg capsule 25 mcg PO QAM 08/28/20 10/11/20 History ergocalciferol (vitamin D2) 1,250 mcg PO WEEKLY 09/19/20 10/11/20 History metoprolol tartrate 100 mg PO BID 09/19/20 10/11/20 History acetaminophen 325 mg PO Q6H PRN 09/28/20 10/11/20 History calcium carbonate [Tums] 500 mg PO PRN PRN 09/28/20 10/11/20 History albuterol sulfate 2 puff INHALATION QID PRN #8.5 g 10/06/20 10/11/20 Rx hydrocodone-acetaminophen 1 tablet PO Q6H PRN #30 tablet 10/06/20 10/11/20 Rx vancomycin 125 mg PO Q6HR #48 ea 10/06/20 10/11/20 Rx aspirin [Adult Aspirin EC Low 81 mg PO DAILY 10/11/20 10/11/20 History Strength] cetirizine 10 mg PO DAILY 10/11/20 10/11/20 History ferrous sulfate [Iron (ferrous 325 mg PO DAILY 10/11/20 10/11/20 History sulfate)] Laboratory Tests 10/18/20 10/18/20 10/18/20 12:14 17:00 20:33 Creatinine Estim Creat Clear Calc Estimated GFR POC Capillary Glucose 150 mg/dl H mg/dl 146 mg/dl H mg/dl 159 mg/dl H mg/dl (65-105) (65-105) (65-105) Vancomycin Trough 10/19/20 10/19/20 10/19/20 05:54 05:54 07:43 Creatinine 2.80 mg/dL H mg/dL (0.7-1.0) Estim Creat Clear Calc 25 ml/min ml/min Estimated GFR 17 L (59 - ) POC Capillary Glucose 99 mg/dl mg/dl (65-105) Vancomycin Trough 15.7 ug/mL ug/mL (10.0-20.0) Patient hx anesthesia problems: none Family hx anesthesia problems: none PMFSH Past Medical History Medical History Chronic kidney disease (CKD) stage G4/A1, severely decreased glomerular filtration rate (GFR) between 15-29 mL/min/1.73 square meter and albuminuria creatinine ratio less than 30 mg/g Chronic kidney disease, stage 4 (severe) Chronic pain of right ankle Hematoma of amputation stump of right lower extremity Hypercholesterolemia Hypertension Hypothyroidism Metabolic acidosis Morbid obesity with BMI of 40.0-44.9, adult Osteoarthritis Primary localized osteoarthritis of right knee 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 Left foot reconstruction. Right mandibular surgery. Left total hip arthroplasty. Right transtibial amputation. Left knee arthroplasty. Presence of left artificial hip joint Family History Family History Other Diabetes mellitus Family history of alcoholism Hypertension Social History Social History (Reviewed 10/18/20 @ 16:58 by Ilan
[2020-10-19] MEDS: BUPIVACAINE HCL 0.5% PF 30 ML VIAL INFILTRATE (09:56)
[2020-10-19 10:42] LABS: Glucose Point of Care 96 mg/dl (65-105)
--- NOTE | 2020-10-19 10:58 | P.OP_ITS ---
Procedure Note - Detailed Date of Procedure 10/19/20 Pre-op Diagnosis Debridement infection of right BKA Post-op Diagnosis same Procedure Performed Right below-knee amputation debridement including bone, application wound VAC Surgeon Avinash Curtis MD Headwaiter/Headwaitress 1[employer] workers compensation claims assistant Anesthesia MAC and local Indications 64-year-old woman who is 3 weeks status post right below-knee amputation complicated by wound dehiscence. She has also had medical complications including C diff, cardiac shock and renal failure. Noted to have necrosis of the right amputation stump. She is now medically stable and presents for debridement of the amputation stump. Findings Necrotic skin, subcutaneous tissue muscle and tendon of the right amputation stump. No evidence of infection. Myodesis partially healed. no evidence of osteomyelitis. Description of Procedure Indications: Patient is a 64-year-old woman who underwent right below-knee amputation 3 weeks ago. This is been a difficult and complicated postoperative course including wound dehiscence with soft tissue necrosis, poor nutrition, C diff, cardiogenic shock, renal failure. Most recently she was readmitted through the emergency room in shock and required IV pressors for blood pressure support, transcutaneous pacing and intubation. She is noted to have wound dehiscence with necrosis of the stump. She is now medically stable and is brought to the operating room to undergo debridement. What was done: Patient identified in the preoperative holding. Informed consent given. Operative extremity marked. Patient received intravenous antibiotics. Patient brought to the operating room where underwent Conscious sedation by the anesthesia team. Positioned supine on operating room table. Time-out performed confirming the patient, site of the surgery and the plan. Right leg prepped and draped usual sterile surgical fashion using a Betadine prep solution. There is noted to be complete dehiscence of the surgical incision. There is partial dehiscence of the gastrocnemius myodesis to the tibia. There is partial exposure of the tibia but no evidence of osteomyelitis. Fifteen blade knife used to debride the skin, subcutaneous tissue, muscle and tendon that was devitalized. Rongeur was used to debride the end of the tibia. Pulsatile lavage was then used to irrigate the stump with 3 L of normal saline. Bacitraci n saline then used to further irrigate. Portion of the skin was able to be closed with 0 Prolene interrupted sutures. Wound VAC dressing was then applied using black foam with good seal. Sterile dressing applied. The patient was then woken from anesthesia and taken to the recovery room in stable condition. All sponge, needle, instrument counts were correct at the end of the case. Estimated Blood Loss 10 Tourniquet Time 0 Urine Output 1,750 Drains No Packing Yes ( Wound VAC dressing with black foam) Pathology none sent Complications None Condition stable Disposition PACU
--- NOTE | 2020-10-19 11:15 | PC.NURSE ---
Patient returned from OR per bed. Report received per REBECA Hooks.
--- NOTE | 2020-10-19 13:39 | PC.NURSE ---
On 10/19/20, the student, [Ezekiel Avina], provided care and completed [facility] documentation on this patient. I have reviewed the student's documentation and agree with the findings.
--- NOTE | 2020-10-19 15:37 | PM.IMPN ---
Progress Note: A&P Assessment and Plan (1) UTI (urinary tract infection): Qualifiers: Hematuria presence: without hematuria Urinary tract infection type: acute cystitis Qualified Code(s): N30.00 - Acute cystitis without hematuria Code(s): N39.0 - Urinary tract infection, site not specified Status: Acute Assessment and Plan: RESOLVED (2) Acute osteomyelitis of fibula: Code(s): M86.169 - Other acute osteomyelitis, unspecified tibia and fibula Status: Acute Assessment and Plan: PATIENT IS STATUS POST DEBRIDEMENT AND WOUND VAC PLACEMENT FOR RIGHT STUMP knee x-rays as follows: 1. Irregularity of the bone margin of the fibular stump, which is indeterminate for osteomyelitis. 2. Severe right knee osteoarthritis. 3. Large knee joint effusion with loose bodies. patient has a history of right below the knee amputation from last month. The patient is 19 days post right [id number] amputation complicated by wound dehiscence. The patient has some necrotic tissues Wells lost thing to that right [id number] amputation. She has some yellow drainage. Dr. faustin is seeing the patient in he noted moderate serous drainage with necrotic tissue but no signs of infection. He recommended to continue with back in solution dressing changes b.i.d.. Will plan for debridement when the patient is medically stable. (3) Septic shock: Code(s): A41.9 - Sepsis, unspecified organism; R65.21 - Severe sepsis with septic shock Status: Acute Assessment and Plan: RESOLVED 10/14 pressors off Continue to monitor Continue IV vancomycin and cefepime (day 3), metronidazole (day 2) Orthopedics on consult possible intervention; await recommendations Knee x-ray with concerns for tubular osteomyelitis Cellulitis of right lower extremity UTI with e coli and pseudomonas Blood culture with 1/2 growing coag negative staph Remote history of C diff. (4) Neutrophilic leukocytosis: Code(s): D72.9 - Disorder of white blood cells, unspecified Status: Acute Assessment and Plan: possibly secondary to infection Patient on IV antibiotic (5) Protein-calorie malnutrition, moderate: Code(s): E44.0 - Moderate protein-calorie malnutrition Status: Acute Assessment and Plan: Feed as tolerated (6) Normal anion gap metabolic acidosis: Code(s): E87.2 - Acidosis Status: Acute Assessment and Plan: continues to have normal anion gap metabolic acidosis Will check for urine electrolytes Lactic acid within normal limits (7) Acute on chronic respiratory failure with hypoxia and hypercapnia: Code(s): J96.21 - Acute and chronic respiratory failure with hypoxia; J96.22 - Acute and chronic respiratory failure with hypercapnia Status: Acute Assessment and Plan: presented with respiratory acidosis and increased lethargy requiring intubation Was also noted to be hypoxic Chest x-ray with possible pulmonary vascular congestion 10/15 Doing well off vent, room air daytime, 2 L nighttime (8) Acute renal failure superimposed on stage 4 chronic kidney disease: Qualifiers: Acute renal failure type: unspecified Qualified Code(s): N17.9 - Acute kidney failure, unspecified; N18.4 - Chronic kidney disease, stage 4 (severe) Code(s): N17.9 - Acute kidney failure, unspecified; N18.4 - Chronic kidney disease, stage 4 (severe) Status: Acute Assessment and Plan: 10/14 creatinine 2.8 Renal ultrasound is follows: 1. No left hydronephrosis. Severe right renal atrophy. 2. Indeterminate lesions on CT not identified on this study. Consider follow-up nonemergent kidney ultrasound after patient is extubated, able to position appropriately for nonemergent evaluation of these lesions. continue IV hydration and pressors Strict eyes and (9) Encephalopathy: Code(s): G93.40 - Encephalopathy, unspecified Status:
--- NOTE | 2020-10-19 15:55 | PM.PNNEP ---
Progress Note: A&P Assessment and Plan (1) Chronic kidney disease, stage 4 (severe): Code(s): N18.4 - Chronic kidney disease, stage 4 (severe) Status: Chronic Assessment and Plan: appears to be stable at around 3ish range follows with Dr. Adrian Pena for CKD management most likely due to diabetes, hypertension, and vascular disease possible element of SARAH(?) -- evaluation so far: - urine electrolytes are non pre renal - urine eosinophils are negative - urinalysis shows infection - ultrasound shows severe right renal atrophy; left kidney okay follow trend of labs (2) Metabolic acidosis: Code(s): E87.2 - Acidosis Status: Acute Assessment and Plan: improving at this time follow trend (3) Septic shock: Code(s): A41.9 - Sepsis, unspecified organism; R65.21 - Severe sepsis with septic shock Status: Acute Assessment and Plan: resolved off all pressor therapy remains on antibiotics (4) Hypertension: Qualifiers: Hypertension type: essential hypertension Qualified Code(s): I10 - Essential (primary) hypertension Code(s): I10 - Essential (primary) hypertension Status: Chronic Assessment and Plan: blood pressure rising back to baseline slowly reintroduce antihypertensives (5) Anemia: Code(s): D64.9 - Anemia, unspecified Status: Chronic Assessment and Plan: due to underlying CKD and acute illness on Epogen follow trend of H/H (6) Type 2 diabetes mellitus: Qualifiers: Diabetes mellitus longterm insulin use: without longterm use Diabetes mellitus complication status: with kidney complications Diabetes mellitus complication detail: with chronic kidney disease Chronic kidney disease stage: stage 4 (severe) Qualified Code(s): E11.22 - Type 2 diabetes mellitus with diabetic chronic kidney disease; N18.4 - Chronic kidney disease, stage 4 (severe) Code(s): E11.9 - Type 2 diabetes mellitus without complications Status: Acute Assessment and Plan: follow accuchecks on SSI Not much else to add at this time. Will continue to follow intermittently. Subjective Date/time seen: 10/19/20 15:55 S/P I &D of right stump by Orthopedic Surgery today along with application of wound vac -- tolerated procedure reasonably well; no new issues/concerns voiced; no events overnight or earlier this AM. Exam Narrative: Exam Narrative: General: WD/WN female in NAD Heart: normal S1 and S2; no rub Lungs: clear to auscultation Abdomen: soft, nontender, nondistended, positive bowel sounds Extremities: no cyanosis or clubbing; 1+ edema; s/p right BKA Skin: wound vac in place Objective Data Vital Signs Vital Signs: Vital Signs Temp Pulse Resp BP Pulse Ox 10/19/20 14:35 36.2 C L 99 22 H 132/60 97 10/19/20 14:05 36.1 C L 91 28 H 141/57 H 98 10/19/20 13:32 86 18 10/19/20 13:10 35.9 C L 89 22 H 141/63 H 97 10/19/20 12:55 35.8 C L 87 136/58 L 98 10/19/20 11:31 35.8 C L 84 22 H 138/60 97 10/19/20 11:00 85 12 134/67 95 10/19/20 10:45 85 12 126/67 95 10/19/20 10:30 84 16 135/69 95 10/19/20 08:42 90 10/19/20 08:05 37.6 C 90 20 171/82 H 94 10/19/20 07:30 96 10/19/20 07:29 88 18 10/19/20 07:22 88 18 10/19/20 06:22 36.6 C 78 18 150/66 H 99 10/19/20 03:36 91 18 10/19/20 03:24 94 20 10/18/20 21:51 36.0 C L 95 18 126/58 L 97 10/18/20 21:20 81 18 10/18/20 21:14 83 96 10/18/20 21:12 83 18 Intake/Output Intake/Output: Intake & Output 10/16/20 10/17/20 10/18/20 10/19/20 23:59 23:59 23:59 23:59 Intake Total 2049 550 1140 950 Output Total 1124 2049 1550 3350 Balance 880 -2286 -609 -8264 Meds/Results Medications: Active Medications Generic Name Dose Route Start Last Admin Trade Name
--- NOTE | 2020-10-19 15:55 | P.PNNP_ITS ---
Progress Note: A&P Assessment and Plan (1) Chronic kidney disease, stage 4 (severe): Code(s): N18.4 - Chronic kidney disease, stage 4 (severe) Status: Chronic Assessment and Plan: * appears to be stable at around 3ish range * follows with Dr. Adrian Pena for CKD management * most likely due to diabetes, hypertension, and vascular disease * possible element of SARAH(?) -- evaluation so far: - urine electrolytes are non pre renal - urine eosinophils are negative - urinalysis shows infection - ultrasound shows severe right renal atrophy; left kidney okay * follow trend of labs (2) Metabolic acidosis: Code(s): E87.2 - Acidosis Status: Acute Assessment and Plan: * improving at this time * follow trend (3) Septic shock: Code(s): A41.9 - Sepsis, unspecified organism; R65.21 - Severe sepsis with septic shock Status: Acute Assessment and Plan: * resolved * off all pressor therapy * remains on antibiotics (4) Hypertension: Qualifiers: Hypertension type: essential hypertension Qualified Code(s): I10 - Essential (primary) hypertension Code(s): I10 - Essential (primary) hypertension Status: Chronic Assessment and Plan: * blood pressure rising back to baseline * slowly reintroduce antihypertensives (5) Anemia: Code(s): D64.9 - Anemia, unspecified Status: Chronic Assessment and Plan: * due to underlying CKD and acute illness * on Epogen * follow trend of H/H (6) Type 2 diabetes mellitus: Qualifiers: Diabetes mellitus long distance operator insulin use: without long distance operator use Diabetes mellitus complication status: with kidney complications Diabetes mellitus complication detail: with chronic kidney disease Chronic kidney disease stage: stage 4 (severe) Qualified Code(s): E11.22 - Type 2 diabetes mellitus with diabetic chronic kidney disease; N18.4 - Chronic kidney disease, stage 4 (severe) Code(s): E11.9 - Type 2 diabetes mellitus without complications Status: Acute Assessment and Plan: * follow accuchecks * on SSI Not much else to add at this time. Will continue to follow intermittently. Subjective Date/time seen: 10/19/20 15:55 S/P I &D of right stump by Orthopedic Surgery today along with application of w ound vac -- tolerated procedure reasonably well; no new issues/concerns voiced; no events overnight or earlier this AM. Exam Narrative: Exam Narrative: General: WD/WN female in NAD Heart: normal S1 and S2; no rub Lungs: clear to auscultation Abdomen: soft, nontender, nondistended, positive bowel sounds Extremities: no cyanosis or clubbing; 1+ edema; s/p right BKA Skin: wound vac in place Objective Data Vital Signs Vital Signs: Vital Signs Temp Pulse Resp BP Pulse Ox 10/19/20 14:35 36.2 C L 99 22 H 132/60 97 10/19/20 14:05 36.1 C L 91 28 H 141/57 H 98 10/19/20 13:32 86 18 10/19/20 13:10 35.9 C L 89 22 H 141/63 H 97 10/19/20 12:55 35.8 C L 87 136/58 L 98 10/19/20 11:31 35.8 C L 84 22 H 138/60 97 10/19/20 11:00 85 12 134/67 95 10/19/20 10:45 85 12 126/67 95 10/19/20 10:30 84 16 135/69 95 10/19/20 08:42 90 10/19/20 08:05 37.6 C 90 20 171/82 H 94 10/19/20 07:30
[2020-10-19 17:14] LABS: Glucose Point of Care 181 mg/dl (65-105)
[2020-10-19] MEDS: DOCUSATE SODIUM 100 MG CAPSULE PO (17:49)
[2020-10-19] MEDS: cloNIDine HCL 0.1 MG TABLET PO (17:49)
[2020-10-19] MEDS: HEPARIN SODIUM 5,000 UNITS/ML VIAL 5000 UNITS SUB-Q (21:09)
[2020-10-19] MEDS: MINERAL OIL/WHITE PETROLATUM OINTMENT 1 APPLIC EACH EYE (21:09)
[2020-10-19] MEDS: ATORVASTATIN 40 MG TABLET PO (21:09)
[2020-10-19 21:38] LABS: Glucose Point of Care 223 mg/dl (65-105)
[2020-10-20] VITALS (12 sets, daily range): BP systolic 129–153; BP diastolic 57–86; PULSE 82–98; RESP 16–36; TEMP 35.9–36.1; O2SAT 91–96; BMI 11.0
[2020-10-20] MEDS: ALBUTEROL SULFATE NEB 2.5 MG/0.5 ML INH INHALATION ×4 (02:25→21:32)
[2020-10-20] MEDS: IPRATROPIUM BR 0.02% INH SOLN 0.5 MG/2.5 ML VIAL INHALATION ×4 (02:25→21:32)
[2020-10-20] MEDS: metroNIDAZOLE 500 MG/ISO 100ML 500 MG/100 ML BAG 100 MG IVPB ×3 (06:02→21:02)
[2020-10-20] MEDS: LEVOTHYROXINE SODIUM 25 MCG TABLET PO (06:03)
[2020-10-20] MEDS: VANCOMYCIN ORAL 125 MG/2.5 ML SYRUP PO ×4 (06:03→23:08)
[2020-10-20 08:07] LABS: Glucose Point of Care 140 mg/dl (65-105)
--- NOTE | 2020-10-20 08:15 | PM.PNORT ---
Progress Note: A&P Assessment and Plan (1) Infection of right below knee amputation: Code(s): T87.43 - Infection of amputation stump, right lower extremity Status: Acute Assessment and Plan: POD #1: Right BKA debridement and graft application Continue Wound VAC. Monitor output. Cover with Kerlex/Tubigrip. Continue IV antibiotics per medicine team. Continue nutritional support for optimal healing. Elevate stump on pillows. Will continue to follow. Plan for wound VAC dressing change on Friday. Subjective Subjective Date/Time Seen: 10/20/20 08:15 POD #1: Revision Right BKA and wound VAC placement No new concerns this AM. Feeling well. No complaints of pain. Concerned about obtaining dentures. Review of Systems Constitutional: Constitutional: Denies fever(s) Eyes: Eyes: Denies blurry vision ENT: Reports Normal hearing present Cardiovascular: Cardiovascular: Denies chest pain and Denies dyspnea Respiratory: Respiratory: Denies dyspnea and Denies wheezing Gastrointestinal: Gastrointestinal: Denies abdominal pain Genitourinary: Genitourinary: Denies urinary urgency Musculoskeletal: Musculoskeletal: Reports as per HPI and Denies numbness Integumentary/Breasts: Skin/Breast: Reports changing lesions, Reports dry skin, Reports sores and Reports other ( Skin changes with psoriatic arthritis) Neurologic: Reports Normal hearing present, Denies behavioral changes, Denies confusion, Denies numbness and Denies convulsions Psychiatric: Psychiatric: Denies behavioral changes, Denies confusion and Denies hallucinations Endocrine: Endocrine: Denies heat intolerance Hematologic/Lymphatic: Hematologic/Lymphatic: Denies easy bleeding Allergic/Immunologic: Allergic/Immunologic: Denies wheezing Exam Const: General: cooperative, comfortable, no acute distress and awake Nutritional Appearance: obese HENMT: Head: normal to inspection, normocephalic and atraumatic Eyes: Conjunctivae: conjunctivae normal Sclera: sclerae normal Neck: Neck: supple and nontender Resp: Effort & Inspection: normal respiratory effort GI: Inspection: non-distended GI Palp: Yes Soft to palpation, No Tenderness to palpation present (GI) and No Guarding due to palpation present (GI) : General: Yes deferred Urinary Catheter: Urinary Catheter: patent and draining and urine clear Skin: Wounds: wounds noted (see below ) Extrem: Right lower extremity: hip/thigh Details: normal to inspection, knee Details: normal to inspection; no tenderness and lower leg (Below-knee amputation.) Left lower extremity: hip/thigh Details: normal to inspection, knee Details: abnormal ROM ( range of motion deferred secondary to fracture), ankle (no calf tenderness) Details: normal to inspection, abnormal ROM Details: with range as follows ( Minimal range of motion ankle and hindfoot secondary to fusion); no pain with active ROM and no pain with passive ROM and other ( good capillary refill in toes, 2+ DP pulse, light touch sensation intact); no tenderness ( lateral malleolus, anterior ankle and medial ankle) and no swelling ( moderate anterior ankle, moderate lateral ankle) and foot Details: normal capillary refill, toes with normal ROM, vascular exam Details: dorsalis pedis pulse present and normal capillary refill, tendon exam active flexion normal and active extension normal and motor-sensory exam two point discrimination normal and light-touch normal; no tenderness Other: Right BKA with dressing intact, c/d/i. Dressing removed. Wound VAC in place, functioning well. 50 mL Serosanguineous drainage in chamber. Right knee without pain or swelling. Objective Data Vital Signs Vital Signs: Vital Signs - 24 hr 10/19/20 08:42 10/19/20 10:30 10/19/20 10:45 Temperature Pulse Rate 90 84 85 Respiratory Rate 16 12 Blood Pressure 135/69 126/67 Pulse Oximetry 95 95 10/19/20 11:00 10/19/20 11:31 10/19/20 12:55 Temperature 35.8 C L 35.8 C L
--- NOTE | 2020-10-20 09:04 | PM.IMPN ---
Progress Note: A&P Assessment and Plan (1) UTI (urinary tract infection): Qualifiers: Hematuria presence: without hematuria Urinary tract infection type: acute cystitis Qualified Code(s): N30.00 - Acute cystitis without hematuria Code(s): N39.0 - Urinary tract infection, site not specified Status: Acute Assessment and Plan: RESOLVED (2) Acute osteomyelitis of fibula: Code(s): M86.169 - Other acute osteomyelitis, unspecified tibia and fibula Status: Acute Assessment and Plan: S/p DEBRIDEMENT AND WOUND VAC PLACEMENT FOR RIGHT STUMP Continue IV antibiotics Ortho following (3) Septic shock: Code(s): A41.9 - Sepsis, unspecified organism; R65.21 - Severe sepsis with septic shock Status: Acute Assessment and Plan: RESOLVED 10/14 pressors off Continue to monitor Continue IV vancomycin and cefepime (day 4), metronidazole (day 3) Orthopedics on consult possible intervention; await recommendations Knee x-ray with concerns for tubular osteomyelitis Cellulitis of right lower extremity UTI with e coli and pseudomonas Blood culture with 1/2 growing coag negative staph Remote history of C diff. (4) Neutrophilic leukocytosis: Code(s): D72.9 - Disorder of white blood cells, unspecified Status: Acute Assessment and Plan: possibly secondary to infection Patient on IV antibiotic (5) Protein-calorie malnutrition, moderate: Code(s): E44.0 - Moderate protein-calorie malnutrition Status: Acute Assessment and Plan: Meals encouraged Corrosion Control Technician consult (6) Normal anion gap metabolic acidosis: Code(s): E87.2 - Acidosis Status: Acute Assessment and Plan: continues to have normal anion gap metabolic acidosis Lactic acid within normal limits (7) Acute on chronic respiratory failure with hypoxia and hypercapnia: Code(s): J96.21 - Acute and chronic respiratory failure with hypoxia; J96.22 - Acute and chronic respiratory failure with hypercapnia Status: Acute Assessment and Plan: Resolved presented with respiratory acidosis and increased lethargy requiring intubation Was also noted to be hypoxic Chest x-ray with possible pulmonary vascular congestion 10/15 Doing well off vent, room air daytime, 2 L nighttime (8) Acute renal failure superimposed on stage 4 chronic kidney disease: Qualifiers: Acute renal failure type: unspecified Qualified Code(s): N17.9 - Acute kidney failure, unspecified; N18.4 - Chronic kidney disease, stage 4 (severe) Code(s): N17.9 - Acute kidney failure, unspecified; N18.4 - Chronic kidney disease, stage 4 (severe) Status: Acute Assessment and Plan: 10/14 creatinine 2.8-->3 today Renal ultrasound is follows: 1. No left hydronephrosis. Severe right renal atrophy. 2. Indeterminate lesions on CT not identified on this study. Consider follow-up nonemergent kidney ultrasound after patient is extubated, able to position appropriately for nonemergent evaluation of these lesions. continue IV hydration and pressors Strict I/O (9) Encephalopathy: Code(s): G93.40 - Encephalopathy, unspecified Status: Resolved Assessment and Plan: RESOLVING (10) Bradycardia: Code(s): R00.1 - Bradycardia, unspecified Status: Resolved Assessment and Plan: RESOLVED Initial EKG showed bradycardia 44 beats per minute likely this was due to her sepsis and polypharmacy including a beta-el heart rate is stable now cardiology recommended that a low-dose metoprolol clonidine can be restarted keep off of verapimil (11) C. difficile colitis: Code(s): A04.72 - Enterocolitis due to Clostridium difficile, not specified as recurrent Status: Acute Assessment and Plan: PO VANC (12) Hypertension: Qualifiers: Hypertension type: essential hypertension Qualified Code(s): I10 - Essential (primary) hyper
--- NOTE | 2020-10-20 09:20 | WPDANESPN ---
Anes - Prog Note Post-Op Date/Time: 10/20/20 09:20 Cardiovascular status: normal Respiratory status: normal Airway patency: baseline Mental status: baseline Post-Op hydration status: normal Vital Signs: Last Vital Signs Temp 36.0 C L 10/20/20 04:48 Pulse 98 10/20/20 09:01 Resp 16 10/20/20 09:01 BP 153/86 H 10/20/20 04:48 Pulse Ox 91 10/20/20 09:01 Pain Score (VAS): 04/16 I/O: Intake & Output 10/19/20 10/20/20 10/20/20 23:59 07:59 15:59 Intake Total 350 1150 Output Total 400 775 Balance -50 375 Laboratory Tests 10/18/20 05:56 10/19/20 05:54 10/19/20 10/19/20 10/19/20 10:38 16:55 21:08 POC Capillary Glucose 96 181 H 223 H 10/20/20 07:56 POC Capillary Glucose 140 H Post-procedural complaints: none Patient Feedback: Patient satisfied with anesthetic care.
[2020-10-20] MEDS: METOPROLOL SUCCINATE EXT REL 25 MG TABCR PO (09:22)
[2020-10-20] MEDS: HEPARIN SODIUM 5,000 UNITS/ML VIAL 5000 UNITS SUB-Q ×2 (09:22→21:00)
[2020-10-20] MEDS: FERROUS SULFATE 324 MG TABLET PO (09:23)
[2020-10-20] MEDS: hydrALAZINE HCL 50 MG TABLET 100 MG PO ×3 (09:23→18:41)
[2020-10-20] MEDS: ASPIRIN 81 MG ENTERIC TABLET PO (09:23)
[2020-10-20] MEDS: amLODIPine BESYLATE 5 MG TABLET 10 MG PO (09:23)
[2020-10-20] MEDS: PANTOPRAZOLE SODIUM IV 40 MG VIAL IV PUSH (09:25)
--- NOTE | 2020-10-20 09:30 | PM.PNORT ---
Progress Note: A&P Assessment and Plan (1) Delayed surgical wound healing of [id number] amputation stump: Code(s): T87.89 - Other complications of amputation stump; T81.89XA - Other complications of procedures, not elsewhere classified, initial encounter Status: Acute Assessment and Plan: postop day 1 right leg debridement and application wound VAC. Wound VAC intact. Patient awake and alert. Continue with antibiotics. Up to chair as tolerated. PT/OT. Pain control. Plan wound VAC dressing change October 23. Subjective Subjective Date/Time Seen: 10/20/20 09:30 Post Op day: 1 Principal diagnosis: Right amputation stump wound dehiscence Interval history: postop day 1 after debridement of right amputation stump and application wound VAC. Patient states pain has improved. She is tolerating diet. No other complaints. Objective Data Vital Signs Vital Signs: Vital Signs - 24 hr 10/19/20 10:30 10/19/20 10:45 10/19/20 11:00 Temperature Pulse Rate 84 85 85 Respiratory Rate 16 12 12 Blood Pressure 135/69 126/67 134/67 Pulse Oximetry 95 95 95 10/19/20 11:31 10/19/20 12:55 10/19/20 13:10 Temperature 96.5 F L 96.5 F L 96.7 F L Pulse Rate 84 87 89 Respiratory Rate 22 H 22 H Blood Pressure 138/60 136/58 L 141/63 H Pulse Oximetry 97 98 97 10/19/20 13:32 10/19/20 14:05 10/19/20 14:35 Temperature 96.9 F L 97.2 F L Pulse Rate 86 91 99 Respiratory Rate 18 28 H 22 H Blood Pressure 141/57 H 132/60 Pulse Oximetry 98 97 10/19/20 17:00 10/19/20 20:18 10/19/20 20:28 Temperature 97.3 F L Pulse Rate 92 83 84 Respiratory Rate 16 18 18 Blood Pressure 128/62 Pulse Oximetry 98 10/19/20 21:27 10/19/20 23:56 10/20/20 02:25 Temperature 97.4 F L 96.8 F L Pulse Rate 92 85 82 Respiratory Rate 18 18 18 Blood Pressure 140/65 134/56 L Pulse Oximetry 96 93 10/20/20 02:35 10/20/20 04:48 10/20/20 09:01 Temperature 96.8 F L Pulse Rate 85 93 98 Respiratory Rate 18 18 16 Blood Pressure 153/86 H Pulse Oximetry 96 91 Intake/Output Intake/Output: Intake & Output 10/17/20 10/18/20 10/19/20 10/20/20 23:59 23:59 23:59 23:59 Intake Total 550 1140 1050 1150 Output Total 2050 1550 3400 085 Iajamvk -8654 -268 -2432 181 Meds/Results Medications: Active Medications Generic Name Dose Route Start Last Admin Trade Name Freq PRN Reason Stop Dose Admin Acetaminophen 650 mg 10/14/20 21:52 10/17/20 22:00 Acetaminophen 325 Mg Tablet PO 650 mg Q6H PRN Administration Mild Pain (1-3) or Fever Albuterol 2.5 mg 10/12/20 14:00 10/20/20 09:00 Albuterol Sulfate Neb 2.5 Mg/0.5 Ml Inh INHALATION 2.5 mg Q6HRT REJI Administration Amlodipine Besylate 10 mg 10/16/20 09:00 10/19/20 07:46 Amlodipine Besylate 5 Mg Tablet PO 10 mg QAM REJI Administration Aspirin 81 mg 10/15/20 09:00 10/19/20 08:00 Aspirin 81 Mg Enteric Tablet PO Not Given DAILY REJI Atorvastatin Calcium 40 mg 10/11/20 21:00 10/19/20 21:09 Atorvastatin 40 Mg Tablet PO 40 mg HS REJI Administration Clonidine HCl 0.1 mg 10/15/20 09:00 10/19/20 17:49 Clonidine Hcl 0.1 Mg Tablet PO 0.1 mg BID REJI Administration Dextrose 12.5 gm 10/11/20 15:56 Dextrose 50% 25 Gm/50 Ml Syringe IV PUSH PRN PRN Hypoglycemia Protocol Docusate Sodium 100 mg 10/19/20 17:00 10/19/20 17:49 Docusate Sodium 100 Mg Capsule PO 100 mg BID REJI Administration Epoetin Gregory-epbx 10,000 units 10/13/20 12:30 10/18/20 13:00 Epoetin Gregory-Epbx 10,000 Units/Ml Vial SUB-Q 10,000 units MOWEFR REJI Administration Ferrous Sulfate 324 mg 10/20/20 09:00 Ferrous Sulfate 324 Mg Tablet PO DAILY REJI Glucagon 1 mg 10/11/20 15:56 Glucagon For Inj 1 Mg Vial IM PRN PRN Hypoglycemia Protocol Glucose 15 gm 10/11/20 15:56 Glucose Oral Gel 15 Gm Of Glucse In 37.5 Gm Tube PO PRN PRN Hypoglycemia Protocol Heparin Sodium (Po
[2020-10-20 09:41] LABS: Basophils Absolute Auto 0.1 K/mm3 (0.0-0.1); Basophils Percent Auto 0.7 % (0.2-1.2); Eosinophils Percent Auto 0.1 % (0-4.4); Hematocrit 30.3 % (37.0-47.0); Immature Granulocyte Absolute 0.14 K/mm3 (0.00-0.031); Immature Granulocyte Percent A 1.5 % (0-0.5); Lymphocytes Absolute Auto 0.96 K/mm3 (0.9-3.2); Lymphocytes Percent Auto 10.1 % (18.3-44.2); Mean Corpuscular HGB Conc 29.7 g/dl (32-36); Mean Corpuscular Hemoglobin 28.8 pg (26-34); Mean Corpuscular Volume 96.8 fl (80-100); Mean Platelet Volume 9.9 fl (7.4-10.4); Monocytes Absolute Auto 0.8 K/mm3 (0.1-0.6); Monocytes Percent Auto 8.6 % (2.6-8.5); Neutrophils Absolute Auto 7.5 K/mm3 (1.3-6.7); Platelet Count Result 268 k/mm3 (150-375); Red Blood Count 3.13 M/mm3 (4.2-5.4); Red Cell Distribution Width 15.3 % (11.5-14.5); White Blood Count 9.5 K/mm3 (4.5-10.0)
[2020-10-20 09:57] LABS: Anion Gap 5 mmol/L (8-16); Blood Urea Nitrogen 51 mg/dL (7-17); Calcium 7.8 mg/dL (8.4-10.2); Carbon Dioxide 22 mmol/L (22-30); Chloride 106 mmol/L (98-107); Estimated CRCL calculation 24 ml/min; Estimated Glomerular Filt Rate 16; Glucose 139 mg/dL (65-105); Potassium 4.6 mmol/L (3.4-5.0); Sodium 133 mmol/L (137-145)
[2020-10-20] MEDS: DOCUSATE SODIUM 100 MG CAPSULE PO ×2 (10:34→18:41)
[2020-10-20] MEDS: cloNIDine HCL 0.1 MG TABLET PO ×2 (10:35→18:40)
--- NOTE | 2020-10-20 11:02 | PCNFU ---
Nutrition Follow-Up Complete: Inadequate oral intake related to oral intubation/mechanical ventilation as evidenced by NPO status. Goal: Patient to meet estimated nutritional needs. Patient is progressing towards goal. No new goal at this time. Pt current nutrition is a regular diet. Last recorded weight is 142.4 kg. Bowel Motility: + BM 10/18/2020 Labs Reviewed: POC Capillary Glucose: 140, Hgb 9.0, Hct 30.3, Na 133, GFR 16, BUN 51, Cr 3.0, Glu 139 Meds Noted: Albuterol, Norvasc, Lipitor, Catapres, Colace Capsule, Retacrit, Ferrous Sulfate, Heparin Sodium, Novolog, Synthroid, Milk of Magnesia, Toprol Xl, Vancomycin Hcl Additional Notes: Followed up with patient. Patient was in great spirits. She has been consuming 75%-100% of trays ordered. Patient is consuming Glucerna BID providing her with an additional 220 calories and 10 grams of protein. Patient is missing her dentures so we are brainstorming meals for her to consume without teeth. Patient has wound vac on right lower leg. Follow up every 3 days.
[2020-10-20 13:01] LABS: Glucose Point of Care 154 mg/dl (65-105)
[2020-10-20] MEDS: EPOETIN ALFA-EPBX 10,000 UNITS/ML VIAL 10000 UNITS SUB-Q (13:07)
--- NOTE | 2020-10-20 13:31 | PC.NURSE ---
On 10/20/20, the student, [ Ezekiel Avina], provided care and completed [facility] documentation on this patient. I have reviewed the student's documentation and agree with the findings.
[2020-10-20 17:41] LABS: Glucose Point of Care 130 mg/dl (65-105)
--- NOTE | 2020-10-20 20:32 | WPDINFPN2 ---
Progress Note: A&P Additional Plan 1. Clostridium difficile colitis clinically doing well. No diarrhea. Formed stool today as per patient. Patient is currently on oral vancomycin day 11 of 14. Continue current treatment to complete a total of 14 days. WBC count is stable at 6. 2. Status post Septic shock currently on cefepime and Flagyl day 11. Source of infection Most likely secondary to surgical site infection. status post debridement of stump with wound VAC placement. 3. Right BKA stump site infection. status post debridement. Wound VAC. general surgery following Subjective Date/time seen: 10/20/20 20:32 Exam Neck: Neck: normal visual inspection Resp: Effort & Inspection: normal respiratory effort Auscultation: clear to auscultation bilaterally Cardio: Rate: regular rate Rhythm: regular rhythm Heart sounds: S1 normal heart sound present and S2 normal heart sound present GI: Inspection: normal to inspection Skin: General skin exam: normal color Extrem: Right lower extremity: normal to inspection ( right lower extremity surgical site wound VAC in place) Objective Data Vital Signs Vital Signs: Vital Signs - 24 hr 10/19/20 21:27 10/19/20 23:56 10/20/20 02:25 Temperature 36.3 C L 36.0 C L Pulse Rate 92 85 82 Respiratory Rate 18 18 18 Blood Pressure 140/65 134/56 L Pulse Oximetry 96 93 10/20/20 02:35 10/20/20 04:48 10/20/20 09:01 Temperature 36.0 C L Pulse Rate 85 93 98 Respiratory Rate 18 18 16 Blood Pressure 153/86 H Pulse Oximetry 96 91 10/20/20 09:22 10/20/20 10:15 10/20/20 10:30 Temperature 36.1 C L 36.1 C L Pulse Rate 98 93 93 Respiratory Rate 32 H 36 H Blood Pressure 137/57 L Pulse Oximetry 92 93 10/20/20 13:55 10/20/20 15:48 Temperature 35.9 C L Pulse Rate 86 84 Respiratory Rate 26 H 18 Blood Pressure 129/64 Pulse Oximetry 96 Intake/Output Intake/Output: Intake & Output 10/17/20 10/18/20 10/19/20 10/20/20 23:59 23:59 23:59 23:59 Intake Total 550 1140 1050 1715 Output Total 2050 1550 3400 1425 Balance -1500 -410 -2350 290 Meds/Results Medications: Active Medications Generic Name Dose Route Start Last Admin Trade Name Jessica PRN Reason Stop Dose Admin Acetaminophen 650 mg 10/14/20 21:52 10/17/20 22:00 Acetaminophen 325 Mg Tablet PO 650 mg Q6H PRN Administration Mild Pain (1-3) or Fever Albuterol 2.5 mg 10/12/20 14:00 10/20/20 15:44 Albuterol Sulfate Neb 2.5 Mg/0.5 Ml Inh INHALATION 2.5 mg Q6HRT REJI Administration Amlodipine Besylate 10 mg 10/16/20 09:00 10/20/20 09:23 Amlodipine Besylate 5 Mg Tablet PO 10 mg QAM REJI Administration Aspirin 81 mg 10/15/20 09:00 10/20/20 09:23 Aspirin 81 Mg Enteric Tablet PO 81 mg DAILY REJI Administration Atorvastatin Calcium 40 mg 10/11/20 21:00 10/19/20 21:09 Atorvastatin 40 Mg Tablet PO 40 mg HS REJI Administration Clonidine HCl 0.1 mg 10/20/20 09:00 10/20/20 18:40 Clonidine Hcl 0.1 Mg Tablet PO 0.1 mg BID REJI Administration Dextrose 12.5 gm 10/11/20 15:56 Dextrose 50% 25 Gm/50 Ml Syringe IV PUSH PRN PRN Hypoglycemia Protocol Docusate Sodium 100 mg 10/19/20 17:00 10/20/20 18:41 Docusate Sodium 100 Mg Capsule PO 100 mg BID REJI Administration Epoetin Gregory-epbx 10,000 units 10/13/20 12:30 10/20/20 13:07 Epoetin Gregory-Epbx 10,000 Units/Ml Vial SUB-Q 10,000 units MOWEFR REJI Administration Ferrous Sulfate 324 mg 10/20/20 09:00 10/20/20 09:23 Ferrous Sulfate 324 Mg Tablet PO 324 mg DAILY REJI Administration Glucagon 1 mg 10/11/20 15:56 Glucagon For Inj 1 Mg Vial IM PRN PRN Hypoglycemia Protocol Glucose 15 gm 10/11/20 15:56 Glucose Oral Gel 15 Gm Of Glucse In 37.5 Gm Tube PO PRN PRN Hypoglycemia Protocol Heparin Sodium (Porcine) 5,000 units 10/16/20 09:00 10/20/20 09:22 Heparin Sodium 5,000 Units/Ml Vial SUB-Q 5,000 units Q12HR
[2020-10-20] MEDS: ATORVASTATIN 40 MG TABLET PO (21:00)
[2020-10-20] MEDS: MINERAL OIL/WHITE PETROLATUM OINTMENT 1 APPLIC EACH EYE (21:01)
[2020-10-20 21:30] LABS: Glucose Point of Care 178 mg/dl (65-105)
[2020-10-21] VITALS (10 sets, daily range): BP systolic 152–162; BP diastolic 64–82; PULSE 60–97; RESP 16–20; TEMP 36–36.1; O2SAT 92–98
[2020-10-21] MEDS: ALBUTEROL SULFATE NEB 2.5 MG/0.5 ML INH INHALATION ×4 (03:28→21:06)
[2020-10-21] MEDS: IPRATROPIUM BR 0.02% INH SOLN 0.5 MG/2.5 ML VIAL INHALATION ×4 (03:28→21:06)
[2020-10-21] MEDS: metroNIDAZOLE 500 MG/ISO 100ML 500 MG/100 ML BAG 100 MG IVPB ×3 (05:10→21:51)
[2020-10-21] MEDS: VANCOMYCIN ORAL 125 MG/2.5 ML SYRUP PO ×4 (05:10→23:00)
[2020-10-21] MEDS: LEVOTHYROXINE SODIUM 25 MCG TABLET PO (06:25)
[2020-10-21 06:33] LABS: Basophils Absolute Auto 0.1 K/mm3 (0.0-0.1); Basophils Percent Auto 0.8 % (0.2-1.2); Eosinophils Absolute Auto 0.1 K/mm3 (0-0.3); Eosinophils Percent Auto 1.4 % (0-4.4); Hematocrit 28.7 % (37.0-47.0); Hemoglobin 8.3 g/dL (12.0-15.0); Immature Granulocyte Absolute 0.18 K/mm3 (0.00-0.031); Immature Granulocyte Percent A 2.5 % (0-0.5); Lymphocytes Absolute Auto 1.19 K/mm3 (0.9-3.2); Lymphocytes Percent Auto 16.3 % (18.3-44.2); Mean Corpuscular HGB Conc 28.9 g/dl (32-36); Mean Corpuscular Hemoglobin 28.4 pg (26-34); Mean Corpuscular Volume 98.3 fl (80-100); Mean Platelet Volume 10.2 fl (7.4-10.4); Monocytes Absolute Auto 0.7 K/mm3 (0.1-0.6); Monocytes Percent Auto 9.6 % (2.6-8.5); Neutrophils Absolute Auto 5.1 K/mm3 (1.3-6.7); Neutrophils Percent Auto 69.4 % (45.5-73.1); Platelet Count Result 248 k/mm3 (150-375); Red Blood Count 2.92 M/mm3 (4.2-5.4); Red Cell Distribution Width 15.5 % (11.5-14.5); White Blood Count 7.3 K/mm3 (4.5-10.0)
[2020-10-21 06:41] LABS: Anion Gap 5 mmol/L (8-16); Blood Urea Nitrogen 52 mg/dL (7-17); Calcium 7.6 mg/dL (8.4-10.2); Carbon Dioxide 22 mmol/L (22-30); Chloride 108 mmol/L (98-107); Estimated CRCL calculation 23 ml/min; Estimated Glomerular Filt Rate 15; Glucose 102 mg/dL (65-110); Potassium 4.5 mmol/L (3.4-5.0); Sodium 135 mmol/L (137-145)
[2020-10-21 08:09] LABS: Glucose Point of Care 105 mg/dl (65-105)
[2020-10-21] MEDS: DOCUSATE SODIUM 100 MG CAPSULE PO ×2 (08:10→17:36)
[2020-10-21] MEDS: METOPROLOL SUCCINATE EXT REL 25 MG TABCR PO (08:10)
[2020-10-21] MEDS: FERROUS SULFATE 324 MG TABLET PO (08:10)
[2020-10-21] MEDS: ASPIRIN 81 MG ENTERIC TABLET PO (08:10)
[2020-10-21] MEDS: cloNIDine HCL 0.1 MG TABLET PO ×2 (08:10→17:36)
[2020-10-21] MEDS: amLODIPine BESYLATE 5 MG TABLET 10 MG PO (08:10)
[2020-10-21] MEDS: hydrALAZINE HCL 50 MG TABLET 100 MG PO ×3 (08:10→17:36)
[2020-10-21] MEDS: PANTOPRAZOLE SODIUM IV 40 MG VIAL IV PUSH (08:11)
[2020-10-21] MEDS: HEPARIN SODIUM 5,000 UNITS/ML VIAL 5000 UNITS SUB-Q ×2 (08:11→21:51)
--- NOTE | 2020-10-21 11:00 | PM.PNORT ---
Progress Note: A&P Assessment and Plan (1) Infection of right below knee amputation: Code(s): T87.43 - Infection of amputation stump, right lower extremity Status: Acute Assessment and Plan: POD #1: Right BKA debridement Continue Wound VAC. Monitor output. Cover with Kerlex/Tubigrip. Tubigrip checked today. No excessive pressure. Continue IV antibiotics per medicine team. Continue nutritional support for optimal healing. Elevate stump on pillows. Will continue to follow. Plan for wound VAC dressing change on Friday. Subjective Subjective Date/Time Seen: 10/21/20 11:00 Post Op day: 2 Principal diagnosis: Right below-knee amputation Interval history: status post debridement of right knee amputation. Patient up in chair. Pain improved. Exam Const: General: cooperative, comfortable, no acute distress and awake Nutritional Appearance: obese HENMT: Head: normal to inspection, normocephalic and atraumatic Eyes: Conjunctivae: conjunctivae normal Sclera: sclerae normal Neck: Neck: supple and nontender Resp: Effort & Inspection: normal respiratory effort GI: Inspection: non-distended GI Palp: Yes Soft to palpation, No Tenderness to palpation present (GI) and No Guarding due to palpation present (GI) : General: Yes deferred Urinary Catheter: Urinary Catheter: patent and draining and urine clear Skin: Wounds: wounds noted (see below ) Extrem: Right lower extremity: hip/thigh Details: normal to inspection, knee Details: normal to inspection; no tenderness and lower leg (Below-knee amputation.) Left lower extremity: hip/thigh Details: normal to inspection, knee Details: abnormal ROM ( range of motion deferred secondary to fracture), ankle (no calf tenderness) Details: normal to inspection, abnormal ROM Details: with range as follows ( Minimal range of motion ankle and hindfoot secondary to fusion); no pain with active ROM and no pain with passive ROM and other ( good capillary refill in toes, 2+ DP pulse, light touch sensation intact); no tenderness ( lateral malleolus, anterior ankle and medial ankle) and no swelling ( moderate anterior ankle, moderate lateral ankle) and foot Details: normal capillary refill, toes with normal ROM, vascular exam Details: dorsalis pedis pulse present and normal capillary refill, tendon exam active flexion normal and active extension normal and motor-sensory exam two point discrimination normal and light-touch normal; no tenderness Other: Right BKA with dressing intact, c/d/i. Wound VAC in place, functioning well. Right knee without pain or swelling. Objective Data Vital Signs Vital Signs: Vital Signs - 24 hr 10/20/20 13:55 10/20/20 15:48 10/20/20 21:33 Temperature 96.7 F L Pulse Rate 86 84 83 Respiratory Rate 26 H 18 16 Blood Pressure 129/64 Pulse Oximetry 96 10/20/20 21:43 10/20/20 22:00 10/21/20 06:00 Temperature 97.0 F L 97.0 F L Pulse Rate 87 85 64 Respiratory Rate 16 16 16 Blood Pressure 138/59 L 154/72 H Pulse Oximetry 94 94 10/21/20 07:30 10/21/20 07:38 10/21/20 08:10 Temperature Pulse Rate 97 88 88 Respiratory Rate 20 20 Blood Pressure Pulse Oximetry 92 Intake/Output Intake/Output: Intake & Output 10/18/20 10/19/20 10/20/20 10/21/20 23:59 23:59 23:59 23:59 Intake Total 1140 1050 1915 990 Output Total 1550 3400 1425 1200 Balance -410 -2350 490 -210 Meds/Results Medications: Active Medications Generic Name Dose Route Start Last Admin Trade Name Freq PRN Reason Stop Dose Admin Acetaminophen 650 mg 10/14/20 21:52 10/17/20 22:00 Acetaminophen 325 Mg Tablet PO 650 mg Q6H PRN Administration Mild Pain (1-3) or Fever Albuterol 2.5 mg 10/12/20 14:00 10/21/20 07:28 Albuterol Sulfate Neb 2.5 Mg/0.5 Ml Inh INHALATION 2.5 mg Q6HRT REJI Administration Amlodipine Besylate 10 mg 10/16/20 09:00 10/21/20 08:10 Amlodipine Besylate 5 Mg Tablet PO 10 mg QAM REJI Administration
[2020-10-21 12:36] LABS: Glucose Point of Care 144 mg/dl (65-105)
--- NOTE | 2020-10-21 13:26 | PM.IMPN ---
Progress Note: A&P Assessment and Plan (1) Infection of right below knee amputation: Code(s): T87.43 - Infection of amputation stump, right lower extremity Status: Acute Assessment and Plan: S/p debridement and wound vac placement; POD [address] Curtis. Ortho and ID following. Appreciate recommendations. Pt doing well overall Cont Ortho rec Abx per ID rec Monitor (2) UTI (urinary tract infection): Qualifiers: Hematuria presence: without hematuria Urinary tract infection type: acute cystitis Qualified Code(s): N30.00 - Acute cystitis without hematuria Code(s): N39.0 - Urinary tract infection, site not specified Status: Acute Assessment and Plan: Resolved. Pt continues broad spectrum abx. (3) Septic shock: Code(s): A41.9 - Sepsis, unspecified organism; R65.21 - Severe sepsis with septic shock Status: Acute Assessment and Plan: Resolved. Likely due to above. Off pressors since 10/14. Pt continues on broad spectrum abx per ID rec; Cont IV vanc (day 11), cefepime (day 11) and flagyl (day 10); cont PO vanc for c diff (day 12 of 14 per ID rec). Ortho, ID following and appreciate rec. Blood culture with 1/2 growing coag negative staph likely contaminate. Cont IV vanc, cefepime, and Flagyl and PO Vanc per ID rec. continue monitoring clinical improvement (4) C. difficile colitis: Code(s): A04.72 - Enterocolitis due to Clostridium difficile, not specified as recurrent Status: Acute Assessment and Plan: Plan as above. PO vanc day 12 of 14 per ID rec (5) Acute renal failure superimposed on stage 4 chronic kidney disease: Qualifiers: Acute renal failure type: unspecified Qualified Code(s): N17.9 - Acute kidney failure, unspecified; N18.4 - Chronic kidney disease, stage 4 (severe) Code(s): N17.9 - Acute kidney failure, unspecified; N18.4 - Chronic kidney disease, stage 4 (severe) Status: Acute Assessment and Plan: Cr 3.20 today; relatively stable. Baseline Cr typically ~3.00 with variability. Nephrology following; appreciate rec. Renal US as noted above. cont Nephrology rec Monitor fluid status (6) Acute on chronic respiratory failure with hypoxia and hypercapnia: Code(s): J96.21 - Acute and chronic respiratory failure with hypoxia; J96.22 - Acute and chronic respiratory failure with hypercapnia Status: Resolved Assessment and Plan: Resolved; presented with respiratory acidosis and increased lethargy requiring intubation. Pt extubated and doing well on RA. Possibly due to pulmonary vascular congestion Monitor respiratory status (7) Encephalopathy: Code(s): G93.40 - Encephalopathy, unspecified Status: Resolved Assessment and Plan: Seemingly resolved. Pt A&Ox4 and conversive with me today. Likely multifactorial due to above. (8) Normal anion gap metabolic acidosis: Code(s): E87.2 - Acidosis Status: Resolved Assessment and Plan: Resolved. (9) Bradycardia: Code(s): R00.1 - Bradycardia, unspecified Status: Resolved Assessment and Plan: Resolved. Initial EKG showed bradycardia 44 beats per minute. Likely due to her sepsis and polypharmacy including a beta-el Cont cardiology rec; appreciate input. They have signed off Cont low-dose metoprolol and clonidine per cardiology rec Hold/d/c verapamil (10) Hypertension: Qualifiers: Hypertension type: essential hypertension Qualified Code(s): I10 - Essential (primary) hypertension Code(s): I10 - Essential (primary) hypertensi
--- NOTE | 2020-10-21 13:38 | PCSTNOTE ---
Skilled ST services are no longer warranted for this patient, therefore she will be discharged at this time. She is independent in her use of safe swallow guidelines and is not demonstrating any s/s of aspiration with her current, preferred diet level. Physician has been notified and agrees to discharge.
[2020-10-21 16:59] LABS: Glucose Point of Care 184 mg/dl (65-105)
[2020-10-21] MEDS: ATORVASTATIN 40 MG TABLET PO (21:51)
[2020-10-21] MEDS: MINERAL OIL/WHITE PETROLATUM OINTMENT 1 APPLIC EACH EYE (21:51)
[2020-10-21 21:55] LABS: Glucose Point of Care 242 mg/dl (65-105)
[2020-10-21 22:16] LABS: Vancomycin Random 19.1 ug/mL (10-20)
[2020-10-22] VITALS (12 sets, daily range): BP systolic 149–174; BP diastolic 61–73; PULSE 83–100; RESP 16–24; TEMP 36–36.6; O2SAT 94–96
[2020-10-22] MEDS: IPRATROPIUM BR 0.02% INH SOLN 0.5 MG/2.5 ML VIAL INHALATION ×4 (03:32→21:08)
[2020-10-22] MEDS: ALBUTEROL SULFATE NEB 2.5 MG/0.5 ML INH INHALATION ×4 (03:33→21:08)
[2020-10-22] MEDS: metroNIDAZOLE 500 MG/ISO 100ML 500 MG/100 ML BAG 100 MG IVPB ×3 (06:17→21:49)
[2020-10-22] MEDS: VANCOMYCIN ORAL 125 MG/2.5 ML SYRUP PO ×3 (06:20→17:22)
[2020-10-22] MEDS: LEVOTHYROXINE SODIUM 25 MCG TABLET PO (06:20)
[2020-10-22 06:37] LABS: Hematocrit 31.4 % (37.0-47.0); Hemoglobin 9.1 g/dL (12.0-15.0); Mean Corpuscular Hemoglobin 27.8 pg (26-34); Mean Platelet Volume 9.8 fl (7.4-10.4); Platelet Count Result 258 k/mm3 (150-375); Red Blood Count 3.27 M/mm3 (4.2-5.4); Red Cell Distribution Width 15.7 % (11.5-14.5); White Blood Count 7.3 K/mm3 (4.5-10.0)
[2020-10-22 06:45] LABS: Anion Gap 6 mmol/L (8-16); Blood Urea Nitrogen 52 mg/dL (7-17); Calcium 8.1 mg/dL (8.4-10.2); Carbon Dioxide 23 mmol/L (22-30); Chloride 106 mmol/L (98-107); Estimated CRCL calculation 23 ml/min; Estimated Glomerular Filt Rate 15; Glucose 129 mg/dL (65-110); Magnesium 1.7 mg/dL (1.6-2.3); Potassium 4.4 mmol/L (3.4-5.0); Sodium 135 mmol/L (137-145)
[2020-10-22 07:33] LABS: Glucose Point of Care 123 mg/dl (65-105)
--- NOTE | 2020-10-22 07:52 | PM.IMPN ---
Progress Note: A&P Assessment and Plan (1) Infection of right below knee amputation: Code(s): T87.43 - Infection of amputation stump, right lower extremity Status: Acute Assessment and Plan: S/p debridement and wound vac placement; POD [address] Curtis. Ortho and ID following. Appreciate recommendations. Pt doing well overall Cont Ortho rec Abx per ID rec With cefepime, Flagyl and IV vancomycin. She is on p.o. vancomycin for C diff colitis as well. Monitor (2) UTI (urinary tract infection): Qualifiers: Hematuria presence: without hematuria Urinary tract infection type: acute cystitis Qualified Code(s): N30.00 - Acute cystitis without hematuria Code(s): N39.0 - Urinary tract infection, site not specified Status: Acute Assessment and Plan: Resolved. Pt continues broad spectrum abx. Urine culture grew E coli and Pseudomonas aeruginosa. Pseudomonas aeruginosa was pretty pansensitive Including cefepime. E coli was sensitive to cefepime as well. (3) Septic shock: Code(s): A41.9 - Sepsis, unspecified organism; R65.21 - Severe sepsis with septic shock Status: Acute Assessment and Plan: Resolved. Likely due to above. Off pressors since 10/14. Pt continues on broad spectrum abx per ID rec; Cont IV vanc (day 12), cefepime (day 12) and flagyl (day 11); cont PO vanc for c diff (day 13 of 14 per ID rec). Ortho, ID following and appreciate rec. Blood culture with 1/2 growing coag negative staph likely contaminate. Cont IV vanc, cefepime, and Flagyl and PO Vanc per ID rec. continue monitoring clinical improvement (4) C. difficile colitis: Code(s): A04.72 - Enterocolitis due to Clostridium difficile, not specified as recurrent Status: Acute Assessment and Plan: Plan as above. PO vanc day 13 of 14 per ID rec (5) Acute renal failure superimposed on stage 4 chronic kidney disease: Qualifiers: Acute renal failure type: unspecified Qualified Code(s): N17.9 - Acute kidney failure, unspecified; N18.4 - Chronic kidney disease, stage 4 (severe) Code(s): N17.9 - Acute kidney failure, unspecified; N18.4 - Chronic kidney disease, stage 4 (severe) Status: Acute Assessment and Plan: Cr 3.20 today; relatively stable. Baseline Cr typically ~3.00 with variability. Nephrology following; appreciate rec. Renal US as noted above. cont Nephrology rec Monitor fluid status (6) Acute on chronic respiratory failure with hypoxia and hypercapnia: Code(s): J96.21 - Acute and chronic respiratory failure with hypoxia; J96.22 - Acute and chronic respiratory failure with hypercapnia Status: Resolved Assessment and Plan: Resolved; presented with respiratory acidosis and increased lethargy requiring intubation. Pt extubated and doing well on RA. Possibly due to pulmonary vascular congestion Monitor respiratory status (7) Encephalopathy: Code(s): G93.40 - Encephalopathy, unspecified Status: Resolved Assessment and Plan: Seemingly resolved. Pt A&Ox4 and conversive with me today. Likely multifactorial due to above. (8) Normal anion gap metabolic acidosis: Code(s): E87.2 - Acidosis Status: Resolved Assessment and Plan: Resolved. (9) Bradycardia: Code(s): R00.1 - Bradycardia, unspecified Status: Resolved Assessment and Plan: Resolved. Initial EKG showed bradycardia 44 beats per minute. Likely due to her sepsis and polypharmacy including a beta-el Cont cardiology rec; appreciate input. They have signed off Cont low-dose metoprolol and clonidine per cardiology
[2020-10-22] MEDS: PANTOPRAZOLE SODIUM IV 40 MG VIAL IV PUSH (08:45)
[2020-10-22] MEDS: HEPARIN SODIUM 5,000 UNITS/ML VIAL 5000 UNITS SUB-Q ×2 (08:45→21:50)
[2020-10-22] MEDS: FERROUS SULFATE 324 MG TABLET PO (08:45)
[2020-10-22] MEDS: DOCUSATE SODIUM 100 MG CAPSULE PO ×2 (08:45→17:22)
[2020-10-22] MEDS: METOPROLOL SUCCINATE EXT REL 25 MG TABCR PO (08:45)
[2020-10-22] MEDS: amLODIPine BESYLATE 5 MG TABLET 10 MG PO (08:45)
[2020-10-22] MEDS: hydrALAZINE HCL 50 MG TABLET 100 MG PO ×3 (08:45→17:22)
[2020-10-22] MEDS: ASPIRIN 81 MG ENTERIC TABLET PO (08:45)
[2020-10-22] MEDS: cloNIDine HCL 0.1 MG TABLET PO ×2 (08:47→17:22)
--- NOTE | 2020-10-22 09:42 | PM.PNORT ---
Progress Note: A&P Assessment and Plan (1) Infection of right below knee amputation: Code(s): T87.43 - Infection of amputation stump, right lower extremity Status: Acute Assessment and Plan: POD #3: Right BKA debridement Continue Wound VAC. Monitor output. Cover with Kerlex/Tubigrip. Tubigrip checked today. No excessive pressure. Continue IV antibiotics per medicine team/ ID. Continue nutritional support for optimal healing. Elevate stump on pillows. Will continue to follow. Plan for wound VAC dressing change tomorrow. Subjective Subjective Date/Time Seen: 10/22/20 09:42 Post Op day: 3 Principal diagnosis: Right below-knee amputation Interval history: up in chair yesterday. Tolerating diet. Speech therapy evaluation for swallowing after intubation. Pain controlled. Exam Const: General: cooperative, comfortable, no acute distress and awake Nutritional Appearance: obese HENMT: Head: normal to inspection, normocephalic and atraumatic Eyes: Conjunctivae: conjunctivae normal Sclera: sclerae normal Neck: Neck: supple and nontender Resp: Effort & Inspection: normal respiratory effort GI: Inspection: non-distended GI Palp: Yes Soft to palpation, No Tenderness to palpation present (GI) and No Guarding due to palpation present (GI) : General: Yes deferred Urinary Catheter: Urinary Catheter: patent and draining and urine clear Skin: Wounds: wounds noted (see below ) Extrem: Right lower extremity: hip/thigh Details: normal to inspection, knee Details: normal to inspection; no tenderness and lower leg (Below-knee amputation.) Left lower extremity: hip/thigh Details: normal to inspection, knee Details: abnormal ROM ( range of motion deferred secondary to fracture), ankle (no calf tenderness) Details: normal to inspection, abnormal ROM Details: with range as follows ( Minimal range of motion ankle and hindfoot secondary to fusion); no pain with active ROM and no pain with passive ROM and other ( good capillary refill in toes, 2+ DP pulse, light touch sensation intact); no tenderness ( lateral malleolus, anterior ankle and medial ankle) and no swelling ( moderate anterior ankle, moderate lateral ankle) and foot Details: normal capillary refill, toes with normal ROM, vascular exam Details: dorsalis pedis pulse present and normal capillary refill, tendon exam active flexion normal and active extension normal and motor-sensory exam two point discrimination normal and light-touch normal; no tenderness Other: Right BKA with dressing intact, c/d/i. Wound VAC in place, functioning well. Right knee without pain or swelling. Objective Data Vital Signs Vital Signs: Vital Signs - 24 hr 10/21/20 13:42 10/21/20 13:54 10/21/20 14:00 Temperature 96.8 F L Pulse Rate 74 88 91 Respiratory Rate 20 20 18 Blood Pressure 152/82 H Pulse Oximetry 94 10/21/20 21:09 10/21/20 21:19 10/21/20 22:00 Temperature 97.0 F L Pulse Rate 93 96 60 Respiratory Rate 20 20 20 Blood Pressure 162/64 H Pulse Oximetry 94 98 10/22/20 03:33 10/22/20 03:43 10/22/20 06:00 Temperature 96.8 F L Pulse Rate 83 85 91 Respiratory Rate 18 18 16 Blood Pressure 154/73 H Pulse Oximetry 95 10/22/20 08:45 10/22/20 08:48 10/22/20 08:59 Temperature Pulse Rate 98 100 99 Respiratory Rate 18 18 Blood Pressure Pulse Oximetry Intake/Output Intake/Output: Intake & Output 10/19/20 10/20/20 10/21/20 10/22/20 23:59 23:59 23:59 23:59 Intake Total 1050 1965 1720 1140 Output Total 3400 1425 2200 1950 Balance -2350 540 -480 -810 Meds/Results Medications: Active Medications Generic Name Dose Route Start Last Admin Trade Name Freq PRN Reason Stop Dose Admin Acetaminophen 650 mg 10/14/20 21:52 10/17/20 22:00 Acetaminophen 325 Mg Tablet PO 650 mg Q6H PRN Administration Mild Pain (1-3) or Fever Albuterol 2.5 mg 10/12/20 14:00 10/22/20 08:40 Albuterol Sulfate Neb 2.5 Mg/0.5 Ml I
[2020-10-22 12:29] LABS: Glucose Point of Care 135 mg/dl (65-105)
--- NOTE | 2020-10-22 16:45 | WPDINFPN2 ---
Progress Note: A&P Additional Plan 1. Clostridium difficile colitis clinically doing well. No diarrhea. Formed stool today as per patient. Patient is currently on oral vancomycin day 14 of 14. WBC count is stable at 6. So vancomycin p.o. after today. 2. Status post Septic shock currently on cefepime and Flagyl day 13. Source of infection Most likely secondary to surgical site infection. status post debridement of stump with wound VAC placement. Continue IV antibiotics. 3. Right BKA stump site infection. status post debridement. Wound VAC. general surgery following Subjective Date/time seen: 10/22/20 16:45 Exam Const: General: cooperative HENMT: Head: normal to inspection Mouth: Yes Normal oral and palatal mucosa present Eyes: Pupils: Equal, round and reactive pupils present Neck: Neck: normal visual inspection Resp: Effort & Inspection: normal respiratory effort Auscultation: clear to auscultation bilaterally Cardio: Rate: regular rate Rhythm: regular rhythm Heart sounds: S1 normal heart sound present and S2 normal heart sound present GI: Inspection: normal to inspection Auscultation: normal bowel sounds Skin: Other: right BKA stump site wound VAC placed. Neuro: General: oriented to person Cranial nerves: Yes CN's II-XII intact bilaterally Extrem: General: normal to inspection Objective Data Vital Signs Vital Signs: Vital Signs - 24 hr 10/21/20 21:09 10/21/20 21:19 10/21/20 22:00 Temperature 36.1 C L Pulse Rate 93 96 60 Respiratory Rate 20 20 20 Blood Pressure 162/64 H Pulse Oximetry 94 98 10/22/20 03:33 10/22/20 03:43 10/22/20 06:00 Temperature 36.0 C L Pulse Rate 83 85 91 Respiratory Rate 18 18 16 Blood Pressure 154/73 H Pulse Oximetry 95 10/22/20 08:45 10/22/20 08:48 10/22/20 08:59 Temperature Pulse Rate 98 100 99 Respiratory Rate 18 18 Blood Pressure Pulse Oximetry 10/22/20 14:00 10/22/20 14:26 Temperature 36.6 C Pulse Rate 96 99 Respiratory Rate 18 24 H Blood Pressure 155/65 H Pulse Oximetry 96 Intake/Output Intake/Output: Intake & Output 10/19/20 10/20/20 10/21/20 10/22/20 23:59 23:59 23:59 23:59 Intake Total 1050 1965 1720 1530 Output Total 3400 1425 2200 1950 Balance -2350 107 -454 -228 Meds/Results Medications: Active Medications Generic Name Dose Route Start Last Admin Trade Name Jessica PRN Reason Stop Dose Admin Acetaminophen 650 mg 10/14/20 21:52 10/17/20 22:00 Acetaminophen 325 Mg Tablet PO 650 mg Q6H PRN Administration Mild Pain (1-3) or Fever Albuterol 2.5 mg 10/12/20 14:00 10/22/20 14:22 Albuterol Sulfate Neb 2.5 Mg/0.5 Ml Inh INHALATION 2.5 mg Q6HRT REJI Administration Amlodipine Besylate 10 mg 10/16/20 09:00 10/22/20 08:45 Amlodipine Besylate 5 Mg Tablet PO 10 mg QAM REJI Administration Aspirin 81 mg 10/15/20 09:00 10/22/20 08:45 Aspirin 81 Mg Enteric Tablet PO 81 mg DAILY REJI Administration Atorvastatin Calcium 40 mg 10/11/20 21:00 10/21/20 21:51 Atorvastatin 40 Mg Tablet PO 40 mg HS REJI Administration Clonidine HCl 0.1 mg 10/20/20 09:00 10/22/20 08:47 Clonidine Hcl 0.1 Mg Tablet PO 0.1 mg BID REJI Administration Dextrose 12.5 gm 10/11/20 15:56 Dextrose 50% 25 Gm/50 Ml Syringe IV PUSH PRN PRN Hypoglycemia Protocol Docusate Sodium 100 mg 10/19/20 17:00 10/22/20 08:45 Docusate Sodium 100 Mg Capsule PO 100 mg BID REJI Administration Epoetin Gregory-epbx 10,000 units 10/13/20 12:30 10/20/20 13:07 Epoetin Gregory-Epbx 10,000 Units/Ml Vial SUB-Q 10,000 units MOWEFR REJI Administration Ferrous Sulfate 324 mg 10/20/20 09:00 10/22/20 08:45 Ferrous Sulfate 324 Mg Tablet PO 324 mg DAILY REJI Administration Glucagon 1 mg 10/11/20 15:56 Glucagon For Inj 1 Mg Vial IM PRN PRN Hypoglycemia Protocol Glucose 15 gm 10/11/20 15:56 Glucose Oral Gel 15 Gm Of Glucse In 37.5
[2020-10-22 17:09] LABS: Glucose Point of Care 176 mg/dl (65-105)
[2020-10-22] MEDS: ATORVASTATIN 40 MG TABLET PO (21:50)
[2020-10-22] MEDS: hydrALAZINE HCL 20 MG/ML VIAL 10 MG IV PUSH (22:06)
[2020-10-22 22:09] LABS: Glucose Point of Care 162 mg/dl (65-105)
[2020-10-22 22:31] LABS: Vancomycin Random 16.4 ug/mL (10-20)
[2020-10-23] VITALS (10 sets, daily range): BP systolic 148–159; BP diastolic 71–85; PULSE 87–104; RESP 14–20; TEMP 36.1–36.3; O2SAT 96–97; BMI 11.0
[2020-10-23] MEDS: ACETAMINOPHEN 325 MG TABLET 650 MG PO (01:28)
[2020-10-23] MEDS: ALBUTEROL SULFATE NEB 2.5 MG/0.5 ML INH INHALATION ×4 (03:23→22:08)
[2020-10-23] MEDS: IPRATROPIUM BR 0.02% INH SOLN 0.5 MG/2.5 ML VIAL INHALATION ×4 (03:23→22:08)
[2020-10-23] MEDS: metroNIDAZOLE 500 MG/ISO 100ML 500 MG/100 ML BAG 100 MG IVPB ×3 (05:35→23:02)
[2020-10-23] MEDS: LEVOTHYROXINE SODIUM 25 MCG TABLET PO (05:35)
[2020-10-23 07:04] LABS: Estimated CRCL calculation 24 ml/min; Estimated Glomerular Filt Rate 16
[2020-10-23] MEDS: DOCUSATE SODIUM 100 MG CAPSULE PO ×2 (08:49→16:04)
[2020-10-23] MEDS: METOPROLOL SUCCINATE EXT REL 25 MG TABCR PO (08:49)
[2020-10-23] MEDS: cloNIDine HCL 0.1 MG TABLET PO ×2 (08:49→16:04)
[2020-10-23] MEDS: FERROUS SULFATE 324 MG TABLET PO (08:49)
[2020-10-23] MEDS: amLODIPine BESYLATE 5 MG TABLET 10 MG PO (08:49)
[2020-10-23] MEDS: ASPIRIN 81 MG ENTERIC TABLET PO (08:50)
[2020-10-23] MEDS: HEPARIN SODIUM 5,000 UNITS/ML VIAL 5000 UNITS SUB-Q ×2 (08:50→20:45)
[2020-10-23] MEDS: PANTOPRAZOLE 40 MG TABLET PO (08:50)
[2020-10-23] MEDS: hydrALAZINE HCL 50 MG TABLET 100 MG PO ×3 (08:50→16:04)
[2020-10-23 09:13] LABS: Glucose Point of Care 131 mg/dl (65-105)
--- NOTE | 2020-10-23 09:17 | PM.PNORT ---
Progress Note: A&P Assessment and Plan (1) Infection of right below knee amputation: Code(s): T87.43 - Infection of amputation stump, right lower extremity Status: Acute Assessment and Plan: POD #4: Right BKA debridement Continue Wound VAC. Monitor output. Cover with Kerlex. Tubigrip removed today due to complaints of pressure at distal thigh. No significant swelling. No new pressure wounds. Continue IV antibiotics per medicine team/ ID. Continue nutritional support for optimal healing. Elevate stump on pillows. Will continue to follow. Plan for wound VAC dressing change three times per week. Subjective Subjective Date/Time Seen: 10/23/ 09:00 POD #4: Right BKA debridement No new complaints. Feeling well overall. Sitting up in bed eating breakfast. Pain well controlled. Review of Systems Constitutional: Constitutional: Denies fever(s) Eyes: Eyes: Denies blurry vision ENT: Reports Normal hearing present Cardiovascular: Cardiovascular: Denies chest pain and Denies dyspnea Respiratory: Respiratory: Denies dyspnea and Denies wheezing Gastrointestinal: Gastrointestinal: Denies abdominal pain Genitourinary: Genitourinary: Denies urinary urgency Musculoskeletal: Musculoskeletal: Reports as per HPI and Denies numbness Integumentary/Breasts: Skin/Breast: Reports changing lesions, Reports dry skin, Reports sores and Reports other ( Skin changes with psoriatic arthritis) Neurologic: Reports Normal hearing present, Denies behavioral changes, Denies confusion, Denies numbness and Denies convulsions Psychiatric: Psychiatric: Denies behavioral changes, Denies confusion and Denies hallucinations Endocrine: Endocrine: Denies heat intolerance Hematologic/Lymphatic: Hematologic/Lymphatic: Denies easy bleeding Allergic/Immunologic: Allergic/Immunologic: Denies wheezing Exam Const: General: cooperative, comfortable, no acute distress and awake Nutritional Appearance: obese HENMT: Head: normal to inspection, normocephalic and atraumatic Eyes: Conjunctivae: conjunctivae normal Sclera: sclerae normal Neck: Neck: supple and nontender Resp: Effort & Inspection: normal respiratory effort GI: Inspection: non-distended GI Palp: Yes Soft to palpation, No Tenderness to palpation present (GI) and No Guarding due to palpation present (GI) : General: Yes deferred Urinary Catheter: Urinary Catheter: patent and draining and urine clear Skin: Wounds: wounds noted (see below ) Extrem: Right lower extremity: hip/thigh Details: normal to inspection, knee Details: normal to inspection; no tenderness and lower leg (Below-knee amputation.) Left lower extremity: hip/thigh Details: normal to inspection, knee Details: abnormal ROM ( range of motion deferred secondary to fracture), ankle (no calf tenderness) Details: normal to inspection, abnormal ROM Details: with range as follows ( Minimal range of motion ankle and hindfoot secondary to fusion); no pain with active ROM and no pain with passive ROM and other ( good capillary refill in toes, 2+ DP pulse, light touch sensation intact); no tenderness ( lateral malleolus, anterior ankle and medial ankle) and no swelling ( moderate anterior ankle, moderate lateral ankle) and foot Details: normal capillary refill, toes with normal ROM, vascular exam Details: dorsalis pedis pulse present and normal capillary refill, tendon exam active flexion normal and active extension normal and motor-sensory exam two point discrimination normal and light-touch normal; no tenderness Other: Right BKA wound VAC dressing removed. New granulation tissue noted. Some slough. No new necrosis. No visible bone exposure. New VAC applied, functioning well. Decreased suction to 150. Right knee without pain or swelling. Objective Data Vital Signs Vital Signs: Vital Signs - 24 hr 10/22/20 14:00 10/22/20 14:26 10/22/20 21:11 Temperature 36.6 C Pulse Rate 96 99 97 Respiratory Rate 18 24
[2020-10-23] MEDS: EPOETIN ALFA-EPBX 10,000 UNITS/ML VIAL 10000 UNITS SUB-Q (11:33)
[2020-10-23 13:10] LABS: Glucose Point of Care 145 mg/dl (65-105)
--- NOTE | 2020-10-23 17:15 | PM.IMPN ---
Progress Note: A&P Assessment and Plan (1) Infection of right below knee amputation: Code(s): T87.43 - Infection of amputation stump, right lower extremity Status: Acute Assessment and Plan: S/p debridement and wound vac placement; POD [address] Ever Escamilla and ID following. Appreciate recommendations. Pt doing well overall Cont Ortho rec Abx per ID rec With cefepime, Flagyl and IV vancomycin. She is on p.o. vancomycin for C diff colitis as well. Monitor (2) UTI (urinary tract infection): Qualifiers: Hematuria presence: without hematuria Urinary tract infection type: acute cystitis Qualified Code(s): N30.00 - Acute cystitis without hematuria Code(s): N39.0 - Urinary tract infection, site not specified Status: Acute Assessment and Plan: Resolved Pt continues broad spectrum abx. UC +E coli and Pseudomonas aeruginosa Continue with cefepime (3) Septic shock: Code(s): A41.9 - Sepsis, unspecified organism; R65.21 - Severe sepsis with septic shock Status: Acute Assessment and Plan: Resolved Likely due to above. Off pressors since 10/14 Pt continues on broad spectrum abx per ID rec Ortho, ID following and appreciate rec BC with 1/2 growing coag negative staph likely contaminate (4) C. difficile colitis: Code(s): A04.72 - Enterocolitis due to Clostridium difficile, not specified as recurrent Status: Acute Assessment and Plan: PO vanc day 14 of 14 per ID rec (5) Acute renal failure superimposed on stage 4 chronic kidney disease: Qualifiers: Acute renal failure type: unspecified Qualified Code(s): N17.9 - Acute kidney failure, unspecified; N18.4 - Chronic kidney disease, stage 4 (severe) Code(s): N17.9 - Acute kidney failure, unspecified; N18.4 - Chronic kidney disease, stage 4 (severe) Status: Acute Assessment and Plan: Cr 3.20-->3.10 today Baseline Cr typically ~3.00 with variability Nephrology following; appreciate rec Renal US reviewed Monitor (6) Acute on chronic respiratory failure with hypoxia and hypercapnia: Code(s): J96.21 - Acute and chronic respiratory failure with hypoxia; J96.22 - Acute and chronic respiratory failure with hypercapnia Status: Resolved Assessment and Plan: Resolved presented with respiratory acidosis and increased lethargy requiring intubation Pt extubated and doing well on RA Possibly due to pulmonary vascular congestion (7) Encephalopathy: Code(s): G93.40 - Encephalopathy, unspecified Status: Resolved Assessment and Plan: Resolved Likely multifactorial due to above (8) Normal anion gap metabolic acidosis: Code(s): E87.2 - Acidosis Status: Resolved Assessment and Plan: Resolved (9) Bradycardia: Code(s): R00.1 - Bradycardia, unspecified Status: Resolved Assessment and Plan: Resolved. Initial EKG showed bradycardia 44 beats per minute Likely due to her sepsis and polypharmacy including a beta-el Cont cardiology rec; appreciate input. They have signed off Cont low-dose metoprolol and clonidine per cardiology rec Hold/d/c verapamil She is on p.o. amlodipine as well (10) Hypertension: Qualifiers: Hypertension type: essential hypertension Qualified Code(s): I10 - Essential (primary) hypertension Code(s): I10 - Essential (primary) hypertension Status: Chronic Assessment and Plan: Stable Continue current regimen With amlodipine, clonidine and metoprolol Hydralazine prn Monitor (11) Type 2
[2020-10-23 17:24] LABS: Glucose Point of Care 153 mg/dl (65-105)
[2020-10-23] MEDS: ATORVASTATIN 40 MG TABLET PO (20:45)
[2020-10-23 20:51] LABS: Glucose Point of Care 205 mg/dl (65-105)
[2020-10-24] VITALS (13 sets, daily range): BP systolic 154–174; BP diastolic 73–80; PULSE 74–99; RESP 18–20; TEMP 36.1–36.8; O2SAT 96–99
[2020-10-24] MEDS: IPRATROPIUM BR 0.02% INH SOLN 0.5 MG/2.5 ML VIAL INHALATION ×4 (02:19→21:03)
[2020-10-24] MEDS: ALBUTEROL SULFATE NEB 2.5 MG/0.5 ML INH INHALATION ×4 (02:19→21:03)
[2020-10-24] MEDS: LEVOTHYROXINE SODIUM 25 MCG TABLET PO (05:44)
[2020-10-24] MEDS: metroNIDAZOLE 500 MG/ISO 100ML 500 MG/100 ML BAG 100 MG IVPB ×3 (05:44→21:35)
[2020-10-24 07:53] LABS: Glucose Point of Care 142 mg/dl (65-105)
[2020-10-24] MEDS: amLODIPine BESYLATE 5 MG TABLET 10 MG PO (08:17)
[2020-10-24] MEDS: METOPROLOL SUCCINATE EXT REL 25 MG TABCR PO (08:17)
[2020-10-24] MEDS: DOCUSATE SODIUM 100 MG CAPSULE PO ×2 (08:17→17:42)
[2020-10-24] MEDS: cloNIDine HCL 0.1 MG TABLET PO ×2 (08:17→17:42)
[2020-10-24] MEDS: FERROUS SULFATE 324 MG TABLET PO (08:17)
[2020-10-24] MEDS: hydrALAZINE HCL 50 MG TABLET 100 MG PO ×3 (08:17→17:42)
[2020-10-24] MEDS: PANTOPRAZOLE 40 MG TABLET PO (08:18)
[2020-10-24] MEDS: HEPARIN SODIUM 5,000 UNITS/ML VIAL 5000 UNITS SUB-Q ×2 (08:18→20:21)
[2020-10-24] MEDS: ASPIRIN 81 MG ENTERIC TABLET PO (08:18)
--- NOTE | 2020-10-24 09:46 | PM.PNORT ---
Progress Note: A&P Assessment and Plan (1) Infection of right below knee amputation: Code(s): T87.43 - Infection of amputation stump, right lower extremity Status: Acute Assessment and Plan: POD #5: Right BKA debridement Continue Wound VAC. Monitor output. Cover with Kerlex. No drainage on kerlex. Plan for wound VAC dressing change tomorrow. Continue IV antibiotics per medicine team/ ID. Continue nutritional support for optimal healing. Elevate stump on pillows. OOB to chair. Will continue to follow. Plan for wound VAC dressing change tomorrow. Subjective Subjective Date/Time Seen: 10/24/ 09:46 POD #5: Right BKA debridement No new complaints. Feeling well overall. Sitting up in bed. Pain well controlled. Review of Systems Constitutional: Constitutional: Denies fever(s) Eyes: Eyes: Denies blurry vision ENT: Reports Normal hearing present Cardiovascular: Cardiovascular: Denies chest pain and Denies dyspnea Respiratory: Respiratory: Denies dyspnea and Denies wheezing Gastrointestinal: Gastrointestinal: Denies abdominal pain Genitourinary: Genitourinary: Denies urinary urgency Musculoskeletal: Musculoskeletal: Reports as per HPI and Denies numbness Integumentary/Breasts: Skin/Breast: Reports changing lesions, Reports dry skin, Reports sores and Reports other ( Skin changes with psoriatic arthritis) Neurologic: Reports Normal hearing present, Denies behavioral changes, Denies confusion, Denies numbness and Denies convulsions Psychiatric: Psychiatric: Denies behavioral changes, Denies confusion and Denies hallucinations Endocrine: Endocrine: Denies heat intolerance Hematologic/Lymphatic: Hematologic/Lymphatic: Denies easy bleeding Allergic/Immunologic: Allergic/Immunologic: Denies wheezing Exam Const: General: cooperative, comfortable, no acute distress and awake Nutritional Appearance: obese HENMT: Head: normal to inspection, normocephalic and atraumatic Eyes: Conjunctivae: conjunctivae normal Sclera: sclerae normal Neck: Neck: supple and nontender Resp: Effort & Inspection: normal respiratory effort GI: Inspection: non-distended GI Palp: Yes Soft to palpation, No Tenderness to palpation present (GI) and No Guarding due to palpation present (GI) : General: Yes deferred Urinary Catheter: Urinary Catheter: patent and draining and urine clear Skin: Wounds: wounds noted (see below ) Extrem: Right lower extremity: hip/thigh Details: normal to inspection, knee Details: normal to inspection; no tenderness and lower leg (Below-knee amputation.) Left lower extremity: hip/thigh Details: normal to inspection, knee Details: abnormal ROM ( range of motion deferred secondary to fracture), ankle (no calf tenderness) Details: normal to inspection, abnormal ROM Details: with range as follows ( Minimal range of motion ankle and hindfoot secondary to fusion); no pain with active ROM and no pain with passive ROM and other ( good capillary refill in toes, 2+ DP pulse, light touch sensation intact); no tenderness ( lateral malleolus, anterior ankle and medial ankle) and no swelling ( moderate anterior ankle, moderate lateral ankle) and foot Details: normal capillary refill, toes with normal ROM, vascular exam Details: dorsalis pedis pulse present and normal capillary refill, tendon exam active flexion normal and active extension normal and motor-sensory exam two point discrimination normal and light-touch normal; no tenderness Other: Right BKA wound VAC in place. Functioning well. Increased output by 50mL since new dressing placed yesterday. Serosanguineous. No drainage on kerlex noted. Right knee without pain/swelling. Objective Data Vital Signs Vital Signs: Vital Signs - 24 hr 10/23/20 09:50 10/23/20 14:00 10/23/20 14:50 Temperature 36.3 C L Pulse Rate 95 90 93 Respiratory Rate 18 20 18 Blood Pressure 148/71 H Pulse Oximetry 97 10/23/20 15:02 10/23/20 20:39 10/23/20 22:
[2020-10-24 10:02] LABS: Hematocrit 32.8 % (37.0-47.0); Hemoglobin 9.6 g/dL (12.0-15.0); Mean Corpuscular HGB Conc 29.3 g/dl (32-36); Mean Corpuscular Hemoglobin 28.6 pg (26-34); Mean Corpuscular Volume 97.6 fl (80-100); Mean Platelet Volume 10.1 fl (7.4-10.4); Platelet Count Result 270 k/mm3 (150-375); Red Blood Count 3.36 M/mm3 (4.2-5.4); Red Cell Distribution Width 17.1 % (11.5-14.5); White Blood Count 7.6 K/mm3 (4.5-10.0)
--- NOTE | 2020-10-24 10:08 | PM.IMPN ---
Progress Note: A&P Assessment and Plan (1) Infection of right below knee amputation: Code(s): T87.43 - Infection of amputation stump, right lower extremity Status: Acute Assessment and Plan: S/p debridement and wound vac placement; POD [address] Ever Escamilla and ID following. Appreciate recommendations Cont Ortho rec Abx per ID rec With cefepime, Flagyl S/p IV vancomycin x 14 daysShe is on p.o. vancomycin for C diff colitis as well. Monitor (2) UTI (urinary tract infection): Qualifiers: Hematuria presence: without hematuria Urinary tract infection type: acute cystitis Qualified Code(s): N30.00 - Acute cystitis without hematuria Code(s): N39.0 - Urinary tract infection, site not specified Status: Acute Assessment and Plan: Resolved Pt continues broad spectrum abx. UC +E coli and Pseudomonas aeruginosa Continue with cefepime (3) Septic shock: Code(s): A41.9 - Sepsis, unspecified organism; R65.21 - Severe sepsis with septic shock Status: Acute Assessment and Plan: Resolved Likely due to above. Off pressors since 10/14 Pt continues on broad spectrum abx per ID rec Ortho, ID following and appreciate rec BC with 1/2 growing coag negative staph likely contaminate (4) C. difficile colitis: Code(s): A04.72 - Enterocolitis due to Clostridium difficile, not specified as recurrent Status: Acute Assessment and Plan: PO vanc x 14 days per ID rec (5) Acute renal failure superimposed on stage 4 chronic kidney disease: Qualifiers: Acute renal failure type: unspecified Qualified Code(s): N17.9 - Acute kidney failure, unspecified; N18.4 - Chronic kidney disease, stage 4 (severe) Code(s): N17.9 - Acute kidney failure, unspecified; N18.4 - Chronic kidney disease, stage 4 (severe) Status: Acute Assessment and Plan: Cr 3.20-->3.10-->2.8 today Baseline Cr typically ~3.00 with variability Nephrology following; appreciate rec Renal US reviewed Monitor (6) Acute on chronic respiratory failure with hypoxia and hypercapnia: Code(s): J96.21 - Acute and chronic respiratory failure with hypoxia; J96.22 - Acute and chronic respiratory failure with hypercapnia Status: Resolved Assessment and Plan: Resolved presented with respiratory acidosis and increased lethargy requiring intubation Pt extubated and doing well on RA Possibly due to pulmonary vascular congestion (7) Encephalopathy: Code(s): G93.40 - Encephalopathy, unspecified Status: Resolved Assessment and Plan: Resolved Likely multifactorial due to above (8) Normal anion gap metabolic acidosis: Code(s): E87.2 - Acidosis Status: Resolved Assessment and Plan: Resolved (9) Bradycardia: Code(s): R00.1 - Bradycardia, unspecified Status: Resolved Assessment and Plan: Resolved. Initial EKG showed bradycardia 44 beats per minute Likely due to her sepsis and polypharmacy including a beta-el Cont cardiology rec; appreciate input. They have signed off Cont low-dose metoprolol and clonidine per cardiology rec Hold/d/c verapamil She is on p.o. amlodipine as well (10) Hypertension: Qualifiers: Hypertension type: essential hypertension Qualified Code(s): I10 - Essential (primary) hypertension Code(s): I10 - Essential (primary) hypertension Status: Chronic Assessment and Plan: Stable Continue current regimen With amlodipine, clonidine and metoprolol Hydralazine prn Monitor (11) Type 2 diabetes me
[2020-10-24 10:12] LABS: Anion Gap 6 mmol/L (8-16); Blood Urea Nitrogen 47 mg/dL (7-17); Calcium 8.3 mg/dL (8.4-10.2); Carbon Dioxide 21 mmol/L (22-30); Chloride 107 mmol/L (98-107); Estimated CRCL calculation 25 ml/min; Estimated Glomerular Filt Rate 17; Glucose 182 mg/dL (65-110); Potassium 4.4 mmol/L (3.4-5.0); Sodium 134 mmol/L (137-145)
[2020-10-24 11:45] LABS: Glucose Point of Care 139 mg/dl (65-105)
--- NOTE | 2020-10-24 14:48 | WPDINFPN2 ---
Progress Note: A&P Additional Plan 1. Clostridium difficile colitis clinically doing well. No diarrhea. Formed stool today as per patient. Patient is currently completed 14 days of oral vancomycin. WBC count is stable at 6. 2. Status post Septic shock currently on cefepime and Flagyl day 15. Source of infection Most likely secondary to surgical site infection. status post debridement of stump with wound VAC placement. Continue IV antibiotics. will review wound on the next wound VAC change. 3. Right BKA stump site infection. status post debridement. Wound VAC. general surgery following Subjective Date/time seen: 10/24/20 14:48 Exam Const: General: cooperative HENMT: Head: normal to inspection Mouth: Yes Normal oral and palatal mucosa present Eyes: Pupils: Equal, round and reactive pupils present Neck: Neck: normal visual inspection Resp: Effort & Inspection: normal respiratory effort Auscultation: clear to auscultation bilaterally Cardio: Heart sounds: S1 normal heart sound present and S2 normal heart sound present GI: Inspection: normal to inspection Auscultation: normal bowel sounds Skin: General skin exam: normal color Neuro: General: oriented to person Cognition (Neuro): normal cognition Speech: normal speech Motor exam (neuro): 5/5 motor strength present throughout Extrem: Right upper extremity: normal to inspection Left upper extremity: normal to inspection Right lower extremity: normal to inspection ( Stump site wound vacs in place. No surrounding erythema) Left lower extremity: normal to inspection Psych: Appearance: grossly normal Mental Status: mental status grossly normal Objective Data Vital Signs Vital Signs: Vital Signs - 24 hr 10/23/20 14:50 10/23/20 15:02 10/23/20 20:39 Temperature 36.1 C L Pulse Rate 93 91 93 Respiratory Rate 18 18 20 Blood Pressure 157/85 H Pulse Oximetry 97 10/23/20 22:10 10/23/20 22:19 10/24/20 02:20 Temperature Pulse Rate 94 97 86 Respiratory Rate 18 18 18 Blood Pressure Pulse Oximetry 10/24/20 02:30 10/24/20 05:37 10/24/20 08:17 Temperature 36.1 C L Pulse Rate 88 99 99 Respiratory Rate 18 18 Blood Pressure 155/78 H Pulse Oximetry 99 10/24/20 09:41 10/24/20 09:50 10/24/20 14:00 Temperature 36.8 C Pulse Rate 96 92 95 Respiratory Rate 20 18 20 Blood Pressure 160/80 H Pulse Oximetry 96 96 Intake/Output Intake/Output: Intake & Output 10/21/20 10/22/20 10/23/20 10/24/20 23:59 23:59 23:59 23:59 Intake Total 1720 1830 1910 990 Output Total 2200 2850 1350 1550 Balance -480 -1020 560 -560 Meds/Results Medications: Active Medications Generic Name Dose Route Start Last Admin Trade Name Freq PRN Reason Stop Dose Admin Acetaminophen 650 mg 10/14/20 21:52 10/23/20 01:28 Acetaminophen 325 Mg Tablet PO 650 mg Q6H PRN Administration Mild Pain (1-3) or Fever Albuterol 2.5 mg 10/12/20 14:00 10/24/20 09:41 Albuterol Sulfate Neb 2.5 Mg/0.5 Ml Inh INHALATION 2.5 mg Q6HRT REJI Administration Amlodipine Besylate 10 mg 10/16/20 09:00 10/24/20 08:17 Amlodipine Besylate 5 Mg Tablet PO 10 mg QAM REJI Administration Aspirin 81 mg 10/15/20 09:00 10/24/20 08:18 Aspirin 81 Mg Enteric Tablet PO 81 mg DAILY REJI Administration Atorvastatin Calcium 40 mg 10/11/20 21:00 10/23/20 20:45 Atorvastatin 40 Mg Tablet PO 40 mg HS REJI Administration Clonidine HCl 0.1 mg 10/20/20 09:00 10/24/20 08:17 Clonidine Hcl 0.1 Mg Tablet PO 0.1 mg BID REJI Administration Dextrose 12.5 gm 10/11/20 15:56 Dextrose 50% 25 Gm/50 Ml Syringe IV PUSH PRN PRN Hypoglycemia Protocol Docusate Sodium 100 mg 10/19/20 17:00 10/24/20 08:17 Docusate Sodium 100 Mg Capsule PO 100 mg BID REJI Administration Epoetin Gregory-epbx 10,000 units 10/13/20 12:30 10/23/20 11:33 Epoetin Gregory-Epbx 10,000 Units/Ml Vial SUB-Q 10,000 units MOWEFR S
[2020-10-24 17:46] LABS: Glucose Point of Care 142 mg/dl (65-105)
[2020-10-24] MEDS: ATORVASTATIN 40 MG TABLET PO (20:20)
[2020-10-24] MEDS: MINERAL OIL/WHITE PETROLATUM OINTMENT 1 APPLIC EACH EYE (20:21)
[2020-10-24 20:39] LABS: Glucose Point of Care 152 mg/dl (65-105)
[2020-10-24] MEDS: hydrALAZINE HCL 20 MG/ML VIAL 10 MG IV PUSH (20:43)
[2020-10-25] VITALS (10 sets, daily range): BP systolic 149–166; BP diastolic 73–91; PULSE 76–100; RESP 16–26; TEMP 36.4–36.9; O2SAT 95–97
[2020-10-25] MEDS: ALBUTEROL SULFATE NEB 2.5 MG/0.5 ML INH INHALATION ×4 (02:32→21:48)
[2020-10-25] MEDS: IPRATROPIUM BR 0.02% INH SOLN 0.5 MG/2.5 ML VIAL INHALATION ×4 (02:32→21:48)
[2020-10-25] MEDS: metroNIDAZOLE 500 MG/ISO 100ML 500 MG/100 ML BAG 100 MG IVPB ×3 (05:50→21:26)
[2020-10-25] MEDS: LEVOTHYROXINE SODIUM 25 MCG TABLET PO (06:07)
[2020-10-25 07:41] LABS: Glucose Point of Care 116 mg/dl (65-105)
[2020-10-25] MEDS: ASPIRIN 81 MG ENTERIC TABLET PO (08:16)
[2020-10-25] MEDS: cloNIDine HCL 0.1 MG TABLET PO ×2 (08:16→17:28)
[2020-10-25] MEDS: amLODIPine BESYLATE 5 MG TABLET 10 MG PO (08:16)
[2020-10-25] MEDS: PANTOPRAZOLE 40 MG TABLET PO (08:17)
[2020-10-25] MEDS: DOCUSATE SODIUM 100 MG CAPSULE PO ×2 (08:17→17:27)
[2020-10-25] MEDS: hydrALAZINE HCL 50 MG TABLET 100 MG PO ×3 (08:17→17:28)
[2020-10-25] MEDS: METOPROLOL SUCCINATE EXT REL 25 MG TABCR PO (08:17)
[2020-10-25] MEDS: HEPARIN SODIUM 5,000 UNITS/ML VIAL 5000 UNITS SUB-Q ×2 (08:17→21:25)
[2020-10-25] MEDS: FERROUS SULFATE 324 MG TABLET PO (08:17)
[2020-10-25 08:46] LABS: Basophils Absolute Auto 0.1 K/mm3 (0.0-0.1); Basophils Percent Auto 0.9 % (0.2-1.2); Eosinophils Absolute Auto 0.2 K/mm3 (0-0.3); Eosinophils Percent Auto 2.7 % (0-4.4); Hematocrit 31.3 % (37.0-47.0); Hemoglobin 9.2 g/dL (12.0-15.0); Immature Granulocyte Absolute 0.11 K/mm3 (0.00-0.031); Immature Granulocyte Percent A 1.7 % (0-0.5); Lymphocytes Absolute Auto 0.92 K/mm3 (0.9-3.2); Lymphocytes Percent Auto 13.9 % (18.3-44.2); Mean Corpuscular HGB Conc 29.4 g/dl (32-36); Mean Corpuscular Volume 95.4 fl (80-100); Mean Platelet Volume 10.2 fl (7.4-10.4); Monocytes Absolute Auto 0.6 K/mm3 (0.1-0.6); Monocytes Percent Auto 8.3 % (2.6-8.5); Neutrophils Absolute Auto 4.8 K/mm3 (1.3-6.7); Neutrophils Percent Auto 72.5 % (45.5-73.1); Platelet Count Result 255 k/mm3 (150-375); Red Blood Count 3.28 M/mm3 (4.2-5.4); Red Cell Distribution Width 17.2 % (11.5-14.5); White Blood Count 6.6 K/mm3 (4.5-10.0)
[2020-10-25 08:58] LABS: Anion Gap 5 mmol/L (8-16); Blood Urea Nitrogen 45 mg/dL (7-17); Calcium 8.1 mg/dL (8.4-10.2); Carbon Dioxide 22 mmol/L (22-30); Chloride 110 mmol/L (98-107); Estimated CRCL calculation 24 ml/min; Estimated Glomerular Filt Rate 16; Glucose 120 mg/dL (65-110); Potassium 4.3 mmol/L (3.4-5.0); Sodium 137 mmol/L (137-145)
--- NOTE | 2020-10-25 09:22 | PM.IMPN ---
Progress Note: A&P Assessment and Plan (1) Infection of right below knee amputation: Code(s): T87.43 - Infection of amputation stump, right lower extremity Status: Acute Assessment and Plan: S/p debridement and wound vac placement; POD [address] Ever Escamilla and ID following. Appreciate recommendations Cont Ortho rec Abx per ID rec With cefepime, Flagyl S/p IV vancomycin x 14 days Monitor (2) UTI (urinary tract infection): Qualifiers: Hematuria presence: without hematuria Urinary tract infection type: acute cystitis Qualified Code(s): N30.00 - Acute cystitis without hematuria Code(s): N39.0 - Urinary tract infection, site not specified Status: Acute Assessment and Plan: Resolved Pt continues broad spectrum abx. UC +E coli and Pseudomonas aeruginosa Continue with cefepime (3) Septic shock: Code(s): A41.9 - Sepsis, unspecified organism; R65.21 - Severe sepsis with septic shock Status: Acute Assessment and Plan: Resolved Likely due to above. Off pressors since 10/14 Pt continues on broad spectrum abx per ID rec Ortho, ID following and appreciate rec BC with 1/2 growing coag negative staph likely contaminate (4) C. difficile colitis: Code(s): A04.72 - Enterocolitis due to Clostridium difficile, not specified as recurrent Status: Acute Assessment and Plan: PO vanc x 14 days per ID rec (5) Acute renal failure superimposed on stage 4 chronic kidney disease: Qualifiers: Acute renal failure type: unspecified Qualified Code(s): N17.9 - Acute kidney failure, unspecified; N18.4 - Chronic kidney disease, stage 4 (severe) Code(s): N17.9 - Acute kidney failure, unspecified; N18.4 - Chronic kidney disease, stage 4 (severe) Status: Acute Assessment and Plan: Cr 3.20-->3.10-->2.8-->2.9 today Baseline Cr typically ~3.00 with variability Nephrology following; appreciate rec Renal US reviewed Monitor (6) Acute on chronic respiratory failure with hypoxia and hypercapnia: Code(s): J96.21 - Acute and chronic respiratory failure with hypoxia; J96.22 - Acute and chronic respiratory failure with hypercapnia Status: Resolved Assessment and Plan: Resolved presented with respiratory acidosis and increased lethargy requiring intubation Pt extubated and doing well on RA Possibly due to pulmonary vascular congestion (7) Encephalopathy: Code(s): G93.40 - Encephalopathy, unspecified Status: Resolved Assessment and Plan: Resolved Likely multifactorial due to above (8) Normal anion gap metabolic acidosis: Code(s): E87.2 - Acidosis Status: Resolved Assessment and Plan: Resolved (9) Bradycardia: Code(s): R00.1 - Bradycardia, unspecified Status: Resolved Assessment and Plan: Resolved. Initial EKG showed bradycardia 44 beats per minute Likely due to her sepsis and polypharmacy including a beta-el Cont cardiology rec; appreciate input. They have signed off Cont low-dose metoprolol and clonidine per cardiology rec Hold/d/c verapamil She is on p.o. amlodipine as well (10) Hypertension: Qualifiers: Hypertension type: essential hypertension Qualified Code(s): I10 - Essential (primary) hypertension Code(s): I10 - Essential (primary) hypertension Status: Chronic Assessment and Plan: Stable Continue current regimen With amlodipine, clonidine and metoprolol Hydralazine prn Monitor (11) Type 2 diabetes mellitus: Qualifiers: Diabetes m
--- NOTE | 2020-10-25 11:53 | PCNFU ---
Nutrition Follow-Up Complete: Inadequate oral intake related to oral intubation/mechanical ventilation as evidenced by NPO status. Patient to meet estimated nutritional needs. Patient is working towards goal. Pt current nutrition is Regular, Easy to chew Level 7. Last recorded weight is 133 kg. Bowel Motility: Last BM: 10/24 Labs Reviewed: Hgb 9.2, Hct 31.3, Na 137, K 4.3, GFR 16, BUN 45, Cr 29, Glu 120 Meds Noted: Tylenol, Albuterol, Norvasc, Aspirin, Lipitor, Maxipime, Catapres, Dextrose, Colace, Retacrit, Ferrous Sulfate, Glucagon, Glutose 15, Heparin, Apresoline, Novolog, Atrovent Neb, Synthroid, Milk of Magnesia, Tropol XL, Flagyl, Morphine, Zofran, Roxicodone Tab, Protonix, Vancomycin. Additional Notes: Patient has had several complaints about not getting the correct food. Changes have been made to Easy to Chew Level 7 diet. Currently receiving Ensure Enlive providing 350 kcals and 20 g protein. Patient reports liking the Ensure Enlive, but asked there was a smaller size. Recommend Ensure Compact providing 220 kcals and 9 gm protein. 50 to 100% of meals are being consumed. Will continue to monitor weight, meal consumption, and bowel motility. Follow up in 5 days.
[2020-10-25 12:20] LABS: Glucose Point of Care 135 mg/dl (65-105)
[2020-10-25] MEDS: EPOETIN ALFA-EPBX 10,000 UNITS/ML VIAL 10000 UNITS SUB-Q (12:44)
--- NOTE | 2020-10-25 13:47 | PCNSR ---
On 10/25/20, the student,Velma Frazier, provided care and completed [facility] documentation on this patient. I have reviewed the student's documentation and agree with the findings.
--- NOTE | 2020-10-25 15:24 | PM.PNORT ---
Progress Note: A&P Assessment and Plan (1) Delayed surgical wound healing of neiah-zzh-vuhn amputation stump: Code(s): T87.89 - Other complications of amputation stump; T81.89XA - Other complications of procedures, not elsewhere classified, initial encounter Status: Acute Assessment and Plan: One week status post debridement of right leg, 4 weeks status post original amputation. Wound VAC dressing change performed today. Wound overall improving. No signs of active infection. Still with guarded outlook given medical condition and complications. New wound VAC dressing applied. Continue with OT /PT up to chair as tolerated. IV antibiotics per Infectious Disease. Plan to continue wound VAC until stable for graft application. Subjective Subjective Date/Time Seen: 10/25/20 15:24 Post Op day: 6 Principal diagnosis: Right below-knee amputation with wound dehiscence Interval history: patient with no new complaints. Up in a chair. Alert and oriented. Plan for wound VAC dressing today. Exam Const: General: cooperative, comfortable, no acute distress and awake Nutritional Appearance: obese HENMT: Head: normal to inspection, normocephalic and atraumatic Eyes: Conjunctivae: conjunctivae normal Sclera: sclerae normal Neck: Neck: supple and nontender Resp: Effort & Inspection: normal respiratory effort GI: Inspection: non-distended GI Palp: Yes Soft to palpation, No Tenderness to palpation present (GI) and No Guarding due to palpation present (GI) : General: Yes deferred Urinary Catheter: Urinary Catheter: patent and draining and urine clear Skin: Wounds: wounds noted (see below ) Extrem: Right lower extremity: hip/thigh Details: normal to inspection, knee Details: normal to inspection; no tenderness and lower leg (Below-knee amputation.) Left lower extremity: hip/thigh Details: normal to inspection, knee Details: abnormal ROM ( range of motion deferred secondary to fracture), ankle (no calf tenderness) Details: normal to inspection, abnormal ROM Details: with range as follows ( Minimal range of motion ankle and hindfoot secondary to fusion); no pain with active ROM and no pain with passive ROM and other ( good capillary refill in toes, 2+ DP pulse, light touch sensation intact); no tenderness ( lateral malleolus, anterior ankle and medial ankle) and no swelling ( moderate anterior ankle, moderate lateral ankle) and foot Details: normal capillary refill, toes with normal ROM, vascular exam Details: dorsalis pedis pulse present and normal capillary refill, tendon exam active flexion normal and active extension normal and motor-sensory exam two point discrimination normal and light-touch normal; no tenderness Other: Right BKA wound VAC in place. Functioning well. Right knee without pain/swelling. Wound VAC dressing removed and changed today. Wound nurses notes for exact dimensions. No purulence or signs of infection. Approximately 75% granulation tissue with 25% slough. Swelling improved. Objective Data Vital Signs Vital Signs: Vital Signs - 24 hr 10/24/20 20:20 10/24/20 21:05 10/24/20 21:15 Temperature 97.2 F L Pulse Rate 91 90 74 Respiratory Rate 20 20 20 Blood Pressure 174/78 H Pulse Oximetry 97 96 96 10/24/20 21:40 10/25/20 02:35 10/25/20 02:40 Temperature Pulse Rate 88 81 Respiratory Rate 18 Blood Pressure 154/73 H Pulse Oximetry 10/25/20 06:07 10/25/20 08:17 10/25/20 08:54 Temperature 97.6 F Pulse Rate 95 95 100 Respiratory Rate 20 26 H Blood Pressure 164/82 H Pulse Oximetry 97 95 10/25/20 14:45 10/25/20 14:46 Temperature 98 F Pulse Rate 90 93 Respiratory Rate 18 18 Blood Pressure 166/91 H Pulse Oximetry 97 Intake/Output Intake/Output: Intake & Output 10/22/20 10/23/20 10/24/20 10/25/20 23:59 23:59 23:59 23:59 Intake Total 1830 1910 1590 950 Output Total 2850 1350 2725 1700 Balance -1020 877 -5005 -300 Meds/Results Medications:
[2020-10-25 16:56] LABS: Glucose Point of Care 186 mg/dl (65-105)
[2020-10-25] MEDS: MINERAL OIL/WHITE PETROLATUM OINTMENT 1 APPLIC EACH EYE (21:25)
[2020-10-25] MEDS: ATORVASTATIN 40 MG TABLET PO (21:25)
[2020-10-25 22:11] LABS: Glucose Point of Care 138 mg/dl (65-105)
[2020-10-26] MEDS: ALBUTEROL SULFATE NEB 2.5 MG/0.5 ML INH INHALATION (04:01)
[2020-10-26] MEDS: IPRATROPIUM BR 0.02% INH SOLN 0.5 MG/2.5 ML VIAL INHALATION (04:02)
[2020-10-26 04:03] VITALS: PULSE 89; RESP 20; O2SAT 95
[2020-10-26 04:09] VITALS: PULSE 88; RESP 20
[2020-10-26] MEDS: metroNIDAZOLE 500 MG/ISO 100ML 500 MG/100 ML BAG 100 MG IVPB ×2 (05:58→13:24)
[2020-10-26] MEDS: LEVOTHYROXINE SODIUM 25 MCG TABLET PO (05:58)
[2020-10-26 06:00] VITALS: BP 145/78; PULSE 87; RESP 18; TEMP 36.1; O2SAT 95
[2020-10-26 08:16] LABS: Glucose Point of Care 129 mg/dl (65-105)
[2020-10-26] MEDS: DOCUSATE SODIUM 100 MG CAPSULE PO ×2 (08:49→16:26)
[2020-10-26] MEDS: amLODIPine BESYLATE 5 MG TABLET 10 MG PO (08:49)
[2020-10-26] MEDS: ASPIRIN 81 MG ENTERIC TABLET PO (08:49)
[2020-10-26] MEDS: FERROUS SULFATE 324 MG TABLET PO (08:49)
[2020-10-26] MEDS: hydrALAZINE HCL 50 MG TABLET 100 MG PO ×3 (08:49→16:26)
[2020-10-26] MEDS: cloNIDine HCL 0.1 MG TABLET PO ×2 (08:49→16:26)
[2020-10-26 08:50] VITALS: PULSE 80
[2020-10-26] MEDS: HEPARIN SODIUM 5,000 UNITS/ML VIAL 5000 UNITS SUB-Q ×2 (08:50→21:20)
[2020-10-26] MEDS: PANTOPRAZOLE 40 MG TABLET PO (08:50)
[2020-10-26] MEDS: METOPROLOL SUCCINATE EXT REL 25 MG TABCR PO (08:50)
[2020-10-26 08:58] LABS: Estimated CRCL calculation 24 ml/min; Estimated Glomerular Filt Rate 16
--- NOTE | 2020-10-26 11:00 | P.PNIM_ITS ---
Progress Note: A&P Assessment and Plan (1) Infection of right below knee amputation: Code(s): T87.43 - Infection of amputation stump, right lower extremity Status: Acute Assessment and Plan: S/p debridement and wound vac placement; POD [address] Ever Escamilla and ID following. Appreciate recommendations Cont Ortho rec Abx per ID rec With cefepime, Flagyl S/p IV vancomycin x 14 days Monitor (2) UTI (urinary tract infection): Qualifiers: Hematuria presence: without hematuria Urinary tract infection type: acute cystitis Qualified Code(s): N30.00 - Acute cystitis without hematuria Code(s): N39.0 - Urinary tract infection, site not specified Status: Acute Assessment and Plan: Resolved UC +E coli and Pseudomonas aeruginosa; per ID, strongly douby S/p cefepime ID followed, recommendations appreciated (3) Septic shock: Code(s): A41.9 - Sepsis, unspecified organism; R65.21 - Severe sepsis with septic shock Status: Acute Assessment and Plan: Resolved Likely due to above. Off pressors since 10/14 S/p broad spectrum abx per ID rec Ortho, ID following and appreciate rec BC with 1/2 growing coag negative staph likely contaminate (4) C. difficile colitis: Code(s): A04.72 - Enterocolitis due to Clostridium difficile, not specified as recurrent Status: Acute Assessment and Plan: PO vanc x 14 days per ID rec (5) Acute renal failure superimposed on stage 4 chronic kidney disease: Qualifiers: Acute renal failure type: unspecified Qualified Code(s): N17.9 - Acute kidney failure, unspecified; N18.4 - Chronic kidney disease, stage 4 (severe) Code(s): N17.9 - Acute kidney failure, unspecified; N18.4 - Chronic kidney disease, stage 4 (severe) Status: Acute Assessment and Plan: Cr 3.20-->3.10-->2.8-->2.9 10/25 Baseline Cr typically ~3.00 with variability Nephrology following; appreciate rec Renal US reviewed Monitor (6) Acute on chronic respiratory failure with hypoxia and hypercapnia: Code(s): J96.21 - Acute and chronic respiratory failure with hypoxia; J96.22 - Acute and chronic respiratory failure with hypercapnia Status: Resolved Assessment and Plan: Resolved presented with respiratory acidosis and increased lethargy requiring intubation Pt extubated and doing well on RA Possibly due to pulmonary vascular congestion (7) Encephalopathy: Code(s): G93.40 - Encephalopathy, unspecified Status: Resolved Assessment and Plan: Resolved Likely multifactorial due to above (8) Normal anion gap metabolic acidosis: Code(s): E87.2 - Acidosis Status: Resolved Assessment and Plan: Resolved (9) Bradycardia: Code(s): R00.1 - Bradycardia, unspecified Status: Resolved Assessment and Plan: Resolved. Initial EKG showed bradycardia 44 beats per minute Likely due to her sepsis and polypharmacy including a beta-el Cont cardiology rec; appreciate input. They have signed off Cont low-dose metoprolol and clonidine per cardiology rec Hold/d/c verapamil She is on p.o. amlodipine as well (10) Hypertension: Qualifiers: Hyper
--- NOTE | 2020-10-26 11:19 | PM.PNORT ---
Progress Note: A&P Assessment and Plan (1) Delayed surgical wound healing of idkuo-seg-ttrh amputation stump: Code(s): T87.89 - Other complications of amputation stump; T81.89XA - Other complications of procedures, not elsewhere classified, initial encounter Status: Acute Assessment and Plan: POD 7, status post debridement of right leg, 4 weeks status post original amputation. Wound VAC dressing in place. No signs of active infection. Still with guarded outlook given medical condition and complications. New wound VAC dressing applied. Continue with OT /PT up to chair as tolerated. IV antibiotics per Infectious Disease. Plan to continue wound VAC until stable for graft application. Wound VAC dressing change tomorrow. Subjective Subjective Date/Time Seen: 10/26/20 11:19 Post Op day: 7 Principal diagnosis: right below-knee amputation Interval history: patient up to chair. No new complaints. Tolerating diet better. Minimal right leg pain. Exam Const: General: cooperative, comfortable, no acute distress and awake Nutritional Appearance: obese HENMT: Head: normal to inspection, normocephalic and atraumatic Eyes: Conjunctivae: conjunctivae normal Sclera: sclerae normal Neck: Neck: supple and nontender Resp: Effort & Inspection: normal respiratory effort GI: Inspection: non-distended GI Palp: Yes Soft to palpation, No Tenderness to palpation present (GI) and No Guarding due to palpation present (GI) : General: Yes deferred Urinary Catheter: Urinary Catheter: patent and draining and urine clear Skin: Wounds: wounds noted (see below ) Extrem: Right lower extremity: hip/thigh Details: normal to inspection, knee Details: normal to inspection; no tenderness and lower leg (Below-knee amputation.) Left lower extremity: hip/thigh Details: normal to inspection, knee Details: abnormal ROM ( range of motion deferred secondary to fracture), ankle (no calf tenderness) Details: normal to inspection, abnormal ROM Details: with range as follows ( Minimal range of motion ankle and hindfoot secondary to fusion); no pain with active ROM and no pain with passive ROM and other ( good capillary refill in toes, 2+ DP pulse, light touch sensation intact); no tenderness ( lateral malleolus, anterior ankle and medial ankle) and no swelling ( moderate anterior ankle, moderate lateral ankle) and foot Details: normal capillary refill, toes with normal ROM, vascular exam Details: dorsalis pedis pulse present and normal capillary refill, tendon exam active flexion normal and active extension normal and motor-sensory exam two point discrimination normal and light-touch normal; no tenderness Other: Right BKA wound VAC in place. Functioning well. Right knee without pain/swelling. No purulence or signs of infection. Approximately 75% granulation tissue with 25% slough. Swelling improved. Objective Data Vital Signs Vital Signs: Vital Signs - 24 hr 10/25/20 14:45 10/25/20 14:46 10/25/20 21:48 Temperature 98 F Pulse Rate 90 93 87 Respiratory Rate 18 18 20 Blood Pressure 166/91 H Pulse Oximetry 97 96 10/25/20 21:54 10/25/20 22:00 10/26/20 04:03 Temperature 98.4 F Pulse Rate 76 93 89 Respiratory Rate 16 18 20 Blood Pressure 149/73 H Pulse Oximetry 97 95 10/26/20 04:09 10/26/20 06:00 10/26/20 08:50 Temperature 96.9 F L Pulse Rate 88 87 80 Respiratory Rate 20 18 Blood Pressure 145/78 H Pulse Oximetry 95 Intake/Output Intake/Output: Intake & Output 10/23/20 10/24/20 10/25/20 10/26/20 23:59 23:59 23:59 23:59 Intake Total 1910 1590 1300 840 Output Total 1350 2725 2550 1300 Balance 560 -1135 -1250 -460 Meds/Results Medications: Active Medications Generic Name Dose Route Start Last Admin Trade Name Freq PRN Reason Stop Dose Admin Acetaminophen 650 mg 10/14/20 21:52 10/23/20 01:28 Acetaminophen 325 Mg Tablet PO 650 mg Q6H PRN Administration Mild Pain (1-3) or Fever Alb
[2020-10-26 11:52] LABS: Glucose Point of Care 126 mg/dl (65-105)
[2020-10-26 14:00] VITALS: BP 140/68; PULSE 82; RESP 18; TEMP 36.3; O2SAT 100
--- NOTE | 2020-10-26 14:02 | WPDINFPN2 ---
Progress Note: A&P Assessment and Plan (1) Septic shock: Code(s): A41.9 - Sepsis, unspecified organism; R65.21 - Severe sepsis with septic shock Status: Acute Assessment and Plan: 1. Septic shock, consider C diff infection with colitis, R BKA stump infection, or other subtle sources. Clinically resolved 2. BKA 09/28, with revision 10/19, no infection seen at time of operation 3. Left hip and knee prosthetic joints 4. CRI, cr stable 5. Indwelling [place], strongly doubt UTI REC Cefepime and Vanc IV #16, stop, off C diff therapy. Not in need of any further oral antibiotic. Call if Qs. Local care of her wound. Subjective Date/time seen: 10/26/20 14:02 Interval history: no diarrhea, appetite fair, up in chair Exam Narrative: Exam Narrative: afebrile Const: General: no acute distress Eyes: General: appearance normal, both eyes and all related structures Resp: Effort & Inspection: normal respiratory effort Auscultation: clear to auscultation bilaterally Cardio: Rate: regular rate Rhythm: regular rhythm Heart sounds: no gallops and no murmurs GI: Inspection: non-distended GI Palp: Yes Soft to palpation, No Tenderness to palpation present (GI) and No Guarding due to palpation present (GI) Skin: General skin exam: normal color and no rashes or lesions noted Objective Data Vital Signs Vital Signs: Vital Signs - 24 hr 10/25/20 14:45 10/25/20 14:46 10/25/20 21:48 Temperature 36.6 C Pulse Rate 90 93 87 Respiratory Rate 18 18 20 Blood Pressure 166/91 H Pulse Oximetry 97 96 10/25/20 21:54 10/25/20 22:00 10/26/20 04:03 Temperature 36.9 C Pulse Rate 76 93 89 Respiratory Rate 16 18 20 Blood Pressure 149/73 H Pulse Oximetry 97 95 10/26/20 04:09 10/26/20 06:00 10/26/20 08:50 Temperature 36.1 C L Pulse Rate 88 87 80 Respiratory Rate 20 18 Blood Pressure 145/78 H Pulse Oximetry 95 Intake/Output Intake/Output: Intake & Output 10/23/20 10/24/20 10/25/20 10/26/20 23:59 23:59 23:59 23:59 Intake Total 1910 1590 1300 4118 Output Total 2270 3977 6058 4774 Balance 373 -1135 -1250 -220 Meds/Results Medications: Active Medications Generic Name Dose Route Start Last Admin Trade Name Jessica PRN Reason Stop Dose Admin Acetaminophen 650 mg 10/14/20 21:52 10/23/20 01:28 Acetaminophen 325 Mg Tablet PO 650 mg Q6H PRN Administration Mild Pain (1-3) or Fever Albuterol 2.5 mg 10/26/20 13:04 Albuterol Sulfate Neb 2.5 Mg/0.5 Ml Inh INHALATION Q6HRT PRN Wheezing Amlodipine Besylate 10 mg 10/16/20 09:00 10/26/20 08:49 Amlodipine Besylate 5 Mg Tablet PO 10 mg QAM REJI Administration Aspirin 81 mg 10/15/20 09:00 10/26/20 08:49 Aspirin 81 Mg Enteric Tablet PO 81 mg DAILY REJI Administration Atorvastatin Calcium 40 mg 10/11/20 21:00 10/25/20 21:25 Atorvastatin 40 Mg Tablet PO 40 mg HS REJI Administration Clonidine HCl 0.1 mg 10/20/20 09:00 10/26/20 08:49 Clonidine Hcl 0.1 Mg Tablet PO 0.1 mg BID REJI Administration Dextrose 12.5 gm 10/11/20 15:56 Dextrose 50% 25 Gm/50 Ml Syringe IV PUSH PRN PRN Hypoglycemia Protocol Docusate Sodium 100 mg 10/19/20 17:00 10/26/20 08:49 Docusate Sodium 100 Mg Capsule PO 100 mg BID REJI Administration Epoetin Gregory-epbx 10,000 units 10/13/20 12:30 10/25/20 12:44 Epoetin Gregory-Epbx 10,000 Units/Ml Vial SUB-Q 10,000 units MOWEFR REJI Administration Ferrous Sulfate 324 mg 10/20/20 09:00 10/26/20 08:49 Ferrous Sulfate 324 Mg Tablet PO 324 mg DAILY REJI Administration Glucagon 1 mg 10/11/20 15:56 Glucagon For Inj 1 Mg Vial IM PRN PRN Hypoglycemia Protocol Glucose 15 gm 10/11/20 15:56 Glucose Oral Gel 15 Gm Of Glucse In 37.5 Gm Tube PO PRN PRN Hypoglycemia Protocol Heparin Sodium (Porcine) 5,000 units 10/16/20 09:00 10/26/20 08:50 Heparin Sodium 5,000 Units/Ml Vial SUB-Q 5,000 unit
[2020-10-26 17:23] LABS: Glucose Point of Care 159 mg/dl (65-105)
[2020-10-26] MEDS: MINERAL OIL/WHITE PETROLATUM OINTMENT 1 APPLIC EACH EYE (21:20)
[2020-10-26] MEDS: ATORVASTATIN 40 MG TABLET PO (21:20)
[2020-10-26 21:59] LABS: Glucose Point of Care 152 mg/dl (65-105)
[2020-10-26 22:00] VITALS: BP 164/71; PULSE 87; RESP 22; TEMP 36; O2SAT 97
[2020-10-27] MEDS: LEVOTHYROXINE SODIUM 25 MCG TABLET PO (05:59)
[2020-10-27] MEDS: hydrALAZINE HCL 20 MG/ML VIAL 10 MG IV PUSH ×2 (05:59→15:37)
[2020-10-27 06:00] VITALS: BP 172/75; PULSE 91; RESP 22; TEMP 35.8; O2SAT 95
[2020-10-27 07:41] LABS: Glucose Point of Care 142 mg/dl (65-105)
[2020-10-27 08:59] VITALS: PULSE 84
[2020-10-27] MEDS: PANTOPRAZOLE 40 MG TABLET PO (08:59)
[2020-10-27] MEDS: hydrALAZINE HCL 50 MG TABLET 100 MG PO ×3 (08:59→16:59)
[2020-10-27] MEDS: cloNIDine HCL 0.1 MG TABLET PO ×2 (08:59→16:59)
[2020-10-27] MEDS: METOPROLOL SUCCINATE EXT REL 25 MG TABCR PO (08:59)
--- NOTE | 2020-10-27 08:59 | PM.PNORT ---
Progress Note: A&P Assessment and Plan (1) Delayed surgical wound healing of tjkie-zjd-seja amputation stump: Code(s): T87.89 - Other complications of amputation stump; T81.89XA - Other complications of procedures, not elsewhere classified, initial encounter Status: Acute Assessment and Plan: POD 8, status post debridement of right leg, 4 weeks status post original amputation. Wound VAC dressing in place. No signs of active infection. Still with guarded outlook given medical condition and complications. New wound VAC dressing applied. Continue with OT /PT up to chair as tolerated. Off antibiotics. Plan to continue wound VAC until stable for graft application. Wound VAC dressing change 10/30. Subjective Subjective Date/Time Seen: 10/27/20 08:59 Post Op day: 8 Principal diagnosis: RT bka Interval history: Patient awake and alert. Complains of mild pain right leg. No difficulty with breathing. Exam Const: General: cooperative, comfortable, no acute distress and awake Nutritional Appearance: obese HENMT: Head: normal to inspection, normocephalic and atraumatic Eyes: Conjunctivae: conjunctivae normal Sclera: sclerae normal Neck: Neck: supple and nontender Resp: Effort & Inspection: normal respiratory effort GI: Inspection: non-distended GI Palp: Yes Soft to palpation, No Tenderness to palpation present (GI) and No Guarding due to palpation present (GI) : General: Yes deferred Urinary Catheter: Urinary Catheter: patent and draining and urine clear Skin: Wounds: wounds noted (see below ) Extrem: Right lower extremity: hip/thigh Details: normal to inspection, knee Details: normal to inspection; no tenderness and lower leg (Below-knee amputation.) Left lower extremity: hip/thigh Details: normal to inspection, knee Details: abnormal ROM ( range of motion deferred secondary to fracture), ankle (no calf tenderness) Details: normal to inspection, abnormal ROM Details: with range as follows ( Minimal range of motion ankle and hindfoot secondary to fusion); no pain with active ROM and no pain with passive ROM and other ( good capillary refill in toes, 2+ DP pulse, light touch sensation intact); no tenderness ( lateral malleolus, anterior ankle and medial ankle) and no swelling ( moderate anterior ankle, moderate lateral ankle) and foot Details: normal capillary refill, toes with normal ROM, vascular exam Details: dorsalis pedis pulse present and normal capillary refill, tendon exam active flexion normal and active extension normal and motor-sensory exam two point discrimination normal and light-touch normal; no tenderness Other: Right BKA wound VAC in place. Functioning well. Right knee without pain/swelling. Wound VAC dressing changed. No purulence or signs of infection. Approximately 70% granulation tissue with 30% slough. Swelling improved. Objective Data Vital Signs Vital Signs: Vital Signs - 24 hr 10/26/20 14:00 10/26/20 22:00 10/27/20 06:00 Temperature 97.3 F L 96.8 F L 96.5 F L Pulse Rate 82 87 91 Respiratory Rate 18 22 H 22 H Blood Pressure 140/68 164/71 H 172/75 H Pulse Oximetry 100 97 95 Intake/Output Intake/Output: Intake & Output 10/24/20 10/25/20 10/26/20 10/27/20 23:59 23:59 23:59 23:59 Intake Total 1590 1300 2020 600 Output Total 2725 2550 2750 1050 [facility]1135 -1250 -730 -450 Meds/Results Medications: Active Medications Generic Name Dose Route Start Last Admin Trade Name Freq PRN Reason Stop Dose Admin Acetaminophen 650 mg 10/14/20 21:52 10/23/20 01:28 Acetaminophen 325 Mg Tablet PO 650 mg Q6H PRN Administration Mild Pain (1-3) or Fever Albuterol 2.5 mg 10/26/20 13:04 Albuterol Sulfate Neb 2.5 Mg/0.5 Ml Inh INHALATION Q6HRT PRN Wheezing Amlodipine Besylate 10 mg 10/16/20 09:00 10/26/20 08:49 Amlodipine Besylate 5 Mg Tablet PO 10 mg QAM REJI Administration Aspirin 81 mg 10/15/20 09:00 10/26/20 08:49 Aspirin 81 Mg En
[2020-10-27] MEDS: ASPIRIN 81 MG ENTERIC TABLET PO (09:01)
[2020-10-27] MEDS: amLODIPine BESYLATE 5 MG TABLET 10 MG PO (09:01)
[2020-10-27] MEDS: DOCUSATE SODIUM 100 MG CAPSULE PO ×2 (09:01→16:59)
[2020-10-27] MEDS: FERROUS SULFATE 324 MG TABLET PO (09:01)
[2020-10-27] MEDS: HEPARIN SODIUM 5,000 UNITS/ML VIAL 5000 UNITS SUB-Q ×2 (09:03→20:42)
[2020-10-27 10:08] LABS: Hemoglobin 10.6 g/dL (12.0-15.0); Mean Corpuscular HGB Conc 28.6 g/dl (32-36); Mean Corpuscular Hemoglobin 28.5 pg (26-34); Mean Corpuscular Volume 99.5 fl (80-100); Mean Platelet Volume 10.2 fl (7.4-10.4); Platelet Count Result 195 k/mm3 (150-375); Red Blood Count 3.72 M/mm3 (4.2-5.4); Red Cell Distribution Width 17.5 % (11.5-14.5); White Blood Count 7.5 K/mm3 (4.5-10.0)
[2020-10-27 10:50] LABS: Anion Gap 8 mmol/L (8-16); Blood Urea Nitrogen 38 mg/dL (7-17); Calcium 8.1 mg/dL (8.4-10.2); Carbon Dioxide 19 mmol/L (22-30); Chloride 107 mmol/L (98-107); Estimated CRCL calculation 27 ml/min; Estimated Glomerular Filt Rate 19; Glucose 174 mg/dL (65-110); Potassium 4.5 mmol/L (3.4-5.0); Sodium 134 mmol/L (137-145)
[2020-10-27 11:24] LABS: Glucose Point of Care 180 mg/dl (65-105)
--- NOTE | 2020-10-27 11:25 | PC.NURSE ---
Addendum entered by Nilsa Flores 10/27/20 11:26: Bree Miner Original Note: On 10/27/20, the student, [Suzy Brown], provided care and completed [email or web address] documentation on this patient. I have reviewed the student's documentation and agree with the findings.
[2020-10-27] MEDS: EPOETIN ALFA-EPBX 10,000 UNITS/ML VIAL 10000 UNITS SUB-Q (11:31)
[2020-10-27 13:27] VITALS: BP 173/83; PULSE 86; RESP 22; TEMP 35.8; O2SAT 96
[2020-10-27 15:30] VITALS: BP 153/84; PULSE 100; RESP 16; O2SAT 97
[2020-10-27 17:26] LABS: Glucose Point of Care 123 mg/dl (65-105)
--- NOTE | 2020-10-27 17:26 | PM.IMPN ---
Progress Note: A&P Assessment and Plan (1) Infection of right below knee amputation: Code(s): T87.43 - Infection of amputation stump, right lower extremity Status: Acute Assessment and Plan: S/p debridement and wound vac placement; POD [address] Ever Escamilla and ID following. Appreciate recommendations Cont Ortho rec Abx per ID rec With cefepime, Flagyl S/p IV vancomycin x 14 days Wound vac dressing changed today Monitor (2) UTI (urinary tract infection): Qualifiers: Hematuria presence: without hematuria Urinary tract infection type: acute cystitis Qualified Code(s): N30.00 - Acute cystitis without hematuria Code(s): N39.0 - Urinary tract infection, site not specified Status: Acute Assessment and Plan: Resolved UC +E coli and Pseudomonas aeruginosa; per ID, strongly douby S/p cefepime ID followed, recommendations appreciated (3) Septic shock: Code(s): A41.9 - Sepsis, unspecified organism; R65.21 - Severe sepsis with septic shock Status: Acute Assessment and Plan: Resolved Likely due to above. Off pressors since 10/14 S/p broad spectrum abx per ID rec Ortho, ID following and appreciate rec BC with 1/2 growing coag negative staph likely contaminate (4) C. difficile colitis: Code(s): A04.72 - Enterocolitis due to Clostridium difficile, not specified as recurrent Status: Acute Assessment and Plan: PO vanc x 14 days per ID rec (5) Acute renal failure superimposed on stage 4 chronic kidney disease: Qualifiers: Acute renal failure type: unspecified Qualified Code(s): N17.9 - Acute kidney failure, unspecified; N18.4 - Chronic kidney disease, stage 4 (severe) Code(s): N17.9 - Acute kidney failure, unspecified; N18.4 - Chronic kidney disease, stage 4 (severe) Status: Acute Assessment and Plan: Cr 3.20-->3.10-->2.8-->2.9 10/25 Baseline Cr typically ~3.00 with variability Nephrology following; appreciate rec Renal US reviewed Monitor (6) Acute on chronic respiratory failure with hypoxia and hypercapnia: Code(s): J96.21 - Acute and chronic respiratory failure with hypoxia; J96.22 - Acute and chronic respiratory failure with hypercapnia Status: Resolved Assessment and Plan: Resolved presented with respiratory acidosis and increased lethargy requiring intubation Pt extubated and doing well on RA Possibly due to pulmonary vascular congestion (7) Encephalopathy: Code(s): G93.40 - Encephalopathy, unspecified Status: Resolved Assessment and Plan: Resolved Likely multifactorial due to above (8) Normal anion gap metabolic acidosis: Code(s): E87.2 - Acidosis Status: Resolved Assessment and Plan: Resolved (9) Bradycardia: Code(s): R00.1 - Bradycardia, unspecified Status: Resolved Assessment and Plan: Resolved. Initial EKG showed bradycardia 44 beats per minute Likely due to her sepsis and polypharmacy including a beta-el Cont cardiology rec; appreciate input. They have signed off Cont low-dose metoprolol and clonidine per cardiology rec Hold/d/c verapamil She is on p.o. amlodipine as well (10) Hypertension: Qualifiers: Hypertension type: essential hypertension Qualified Code(s): I10 - Essential (primary) hypertension Code(s): I10 - Essential (primary) hypertension Status: Chronic Assessment and Plan: Stable Continue current regimen With amlodipine, clonidine and metoprolol Hydralazine prn Monitor (11) Type 2 diabetes mellit
[2020-10-27] MEDS: MINERAL OIL/WHITE PETROLATUM OINTMENT 1 APPLIC EACH EYE (20:42)
[2020-10-27] MEDS: ATORVASTATIN 40 MG TABLET PO (20:42)
[2020-10-27 20:54] LABS: Glucose Point of Care 184 mg/dl (65-105)
[2020-10-27 21:10] VITALS: BP 155/68; PULSE 81; RESP 18; TEMP 35.8; O2SAT 95
[2020-10-28] MEDS: LEVOTHYROXINE SODIUM 25 MCG TABLET PO (06:06)
[2020-10-28 06:43] VITALS: BP 142/73; PULSE 84; RESP 20; TEMP 35.7; O2SAT 94
[2020-10-28 06:45] LABS: Hematocrit 35.6 % (37.0-47.0); Hemoglobin 10.2 g/dL (12.0-15.0); Mean Corpuscular HGB Conc 28.7 g/dl (32-36); Mean Corpuscular Hemoglobin 27.9 pg (26-34); Mean Corpuscular Volume 97.5 fl (80-100); Mean Platelet Volume 10.2 fl (7.4-10.4); Platelet Count Result 220 k/mm3 (150-375); Red Blood Count 3.65 M/mm3 (4.2-5.4); Red Cell Distribution Width 17.3 % (11.5-14.5); White Blood Count 6.6 K/mm3 (4.5-10.0)
[2020-10-28 06:58] LABS: Anion Gap 5 mmol/L (8-16); Blood Urea Nitrogen 37 mg/dL (7-17); Calcium 8.1 mg/dL (8.4-10.2); Carbon Dioxide 22 mmol/L (22-30); Chloride 107 mmol/L (98-107); Estimated CRCL calculation 27 ml/min; Estimated Glomerular Filt Rate 19; Glucose 135 mg/dL (65-110); Potassium 4.4 mmol/L (3.4-5.0); Sodium 134 mmol/L (137-145)
[2020-10-28 07:57] LABS: Glucose Point of Care 140 mg/dl (65-105)
[2020-10-28] MEDS: DOCUSATE SODIUM 100 MG CAPSULE PO ×2 (08:23→18:17)
[2020-10-28] MEDS: HEPARIN SODIUM 5,000 UNITS/ML VIAL 5000 UNITS SUB-Q ×2 (08:23→21:08)
[2020-10-28] MEDS: cloNIDine HCL 0.1 MG TABLET PO ×2 (08:23→18:17)
[2020-10-28] MEDS: FERROUS SULFATE 324 MG TABLET PO (08:23)
[2020-10-28] MEDS: PANTOPRAZOLE 40 MG TABLET PO (08:24)
[2020-10-28] MEDS: ASPIRIN 81 MG ENTERIC TABLET PO (08:24)
[2020-10-28] MEDS: amLODIPine BESYLATE 5 MG TABLET 10 MG PO (08:24)
[2020-10-28 08:25] VITALS: PULSE 86
[2020-10-28] MEDS: hydrALAZINE HCL 50 MG TABLET 100 MG PO ×3 (08:25→18:16)
[2020-10-28] MEDS: METOPROLOL SUCCINATE EXT REL 25 MG TABCR PO (08:25)
--- NOTE | 2020-10-28 11:33 | PM.PNORT ---
Progress Note: A&P Assessment and Plan (1) Delayed surgical wound healing of qslpm-rcx-[id number] amputation stump: Code(s): T87.89 - Other complications of amputation stump; T81.89XA - Other complications of procedures, not elsewhere classified, initial encounter Status: Acute Assessment and Plan: POD 9, status post debridement of right leg, 4 weeks status post original amputation. Wound VAC dressing in place. No signs of active infection. Continue with OT /PT up to chair as tolerated. Off antibiotics. Plan to continue wound VAC until stable for graft application. Wound VAC dressing change 10/30. Subjective Subjective Date/Time Seen: 10/28/20 11:33 Post Op day: 9 Principal diagnosis: RT BKA Interval history: Up to chair. No new c/o. wound vac on Exam Const: General: cooperative, comfortable, no acute distress and awake Nutritional Appearance: obese HENMT: Head: normal to inspection, normocephalic and atraumatic Eyes: Conjunctivae: conjunctivae normal Sclera: sclerae normal Neck: Neck: supple and nontender Resp: Effort & Inspection: normal respiratory effort GI: Inspection: non-distended GI Palp: Yes Soft to palpation, No Tenderness to palpation present (GI) and No Guarding due to palpation present (GI) : General: Yes deferred Urinary Catheter: Urinary Catheter: patent and draining and urine clear Skin: Wounds: wounds noted (see below ) Extrem: Right lower extremity: hip/thigh Details: normal to inspection, knee Details: normal to inspection; no tenderness and lower leg (Below-knee amputation.) Left lower extremity: hip/thigh Details: normal to inspection, knee Details: abnormal ROM ( range of motion deferred secondary to fracture), ankle (no calf tenderness) Details: normal to inspection, abnormal ROM Details: with range as follows ( Minimal range of motion ankle and hindfoot secondary to fusion); no pain with active ROM and no pain with passive ROM and other ( good capillary refill in toes, 2+ DP pulse, light touch sensation intact); no tenderness ( lateral malleolus, anterior ankle and medial ankle) and no swelling ( moderate anterior ankle, moderate lateral ankle) and foot Details: normal capillary refill, toes with normal ROM, vascular exam Details: dorsalis pedis pulse present and normal capillary refill, tendon exam active flexion normal and active extension normal and motor-sensory exam two point discrimination normal and light-touch normal; no tenderness Other: Right BKA wound VAC in place. Functioning well. Right knee without pain/swelling. No purulence or signs of infection. Approximately 70% granulation tissue with 30% slough. Swelling improved. Objective Data Vital Signs Vital Signs: Vital Signs - 24 hr 10/27/20 13:27 10/27/20 15:30 10/27/20 21:10 Temperature 96.5 F L 96.4 F L Pulse Rate 86 100 81 Respiratory Rate 22 H 16 18 Blood Pressure 173/83 H 153/84 H 155/68 H Pulse Oximetry 96 97 95 10/28/20 06:43 10/28/20 08:25 Temperature 96.3 F L Pulse Rate 84 86 Respiratory Rate 20 Blood Pressure 142/73 H Pulse Oximetry 94 Intake/Output Intake/Output: Intake & Output 10/25/20 10/26/20 10/27/20 10/28/20 23:59 23:59 23:59 23:59 Intake Total 1300 2020 1630 440 Output Total 2550 2750 2025 650 [facility]1250 -[phone] Meds/Results Medications: Active Medications Generic Name Dose Route Start Last Admin Trade Name Freq PRN Reason Stop Dose Admin Acetaminophen 650 mg 10/14/20 21:52 10/23/20 01:28 Acetaminophen 325 Mg Tablet PO 650 mg Q6H PRN Administration Mild Pain (1-3) or Fever Albuterol 2.5 mg 10/26/20 13:04 Albuterol Sulfate Neb 2.5 Mg/0.5 Ml Inh INHALATION Q6HRT PRN Wheezing Amlodipine Besylate 10 mg 10/16/20 09:00 10/28/20 08:24 Amlodipine Besylate 5 Mg Tablet PO 10 mg QAM REJI Administration Aspirin 81 mg 10/15/20 09:00 10/28/20 08:24 Aspirin 81 Mg Enteric Tablet PO 81 mg DAILY REJI Administrati
--- NOTE | 2020-10-28 11:36 | PM.IMPN ---
Progress Note: A&P Assessment and Plan (1) Infection of right below knee amputation: Code(s): T87.43 - Infection of amputation stump, right lower extremity Status: Acute Assessment and Plan: S/p debridement and wound vac placement; POD [address] Ever Escamilla and ID following. Appreciate recommendations Cont Ortho rec Abx per ID rec With cefepime, Flagyl S/p IV vancomycin x 14 days Wound vac dressing changed 10/27 Monitor (2) UTI (urinary tract infection): Qualifiers: Hematuria presence: without hematuria Urinary tract infection type: acute cystitis Qualified Code(s): N30.00 - Acute cystitis without hematuria Code(s): N39.0 - Urinary tract infection, site not specified Status: Acute Assessment and Plan: Resolved UC +E coli and Pseudomonas aeruginosa; per ID, strongly douby S/p cefepime ID followed, recommendations appreciated (3) Septic shock: Code(s): A41.9 - Sepsis, unspecified organism; R65.21 - Severe sepsis with septic shock Status: Acute Assessment and Plan: Resolved Likely due to above. Off pressors since 10/14 S/p broad spectrum abx per ID rec Ortho, ID following and appreciate rec BC with 1/2 growing coag negative staph likely contaminate (4) C. difficile colitis: Code(s): A04.72 - Enterocolitis due to Clostridium difficile, not specified as recurrent Status: Acute Assessment and Plan: PO vanc x 14 days per ID rec (5) Acute renal failure superimposed on stage 4 chronic kidney disease: Qualifiers: Acute renal failure type: unspecified Qualified Code(s): N17.9 - Acute kidney failure, unspecified; N18.4 - Chronic kidney disease, stage 4 (severe) Code(s): N17.9 - Acute kidney failure, unspecified; N18.4 - Chronic kidney disease, stage 4 (severe) Status: Acute Assessment and Plan: Cr 3.20-->3.10-->2.8-->2.9-->2.6 today Baseline Cr typically ~3.00 with variability Nephrology following; appreciate rec Renal US reviewed Monitor (6) Acute on chronic respiratory failure with hypoxia and hypercapnia: Code(s): J96.21 - Acute and chronic respiratory failure with hypoxia; J96.22 - Acute and chronic respiratory failure with hypercapnia Status: Resolved Assessment and Plan: Resolved presented with respiratory acidosis and increased lethargy requiring intubation Pt extubated and doing well on RA Possibly due to pulmonary vascular congestion (7) Encephalopathy: Code(s): G93.40 - Encephalopathy, unspecified Status: Resolved Assessment and Plan: Resolved Likely multifactorial due to above (8) Normal anion gap metabolic acidosis: Code(s): E87.2 - Acidosis Status: Resolved Assessment and Plan: Resolved (9) Bradycardia: Code(s): R00.1 - Bradycardia, unspecified Status: Resolved Assessment and Plan: Resolved. Initial EKG showed bradycardia 44 beats per minute Likely due to her sepsis and polypharmacy including a beta-el Cont cardiology rec; appreciate input. They have signed off Cont low-dose metoprolol and clonidine per cardiology rec Hold/d/c verapamil She is on p.o. amlodipine as well (10) Hypertension: Qualifiers: Hypertension type: essential hypertension Qualified Code(s): I10 - Essential (primary) hypertension Code(s): I10 - Essential (primary) hypertension Status: Chronic Assessment and Plan: Stable Continue current regimen With amlodipine, clonidine and metoprolol Hydralazine prn Monitor (11) Type 2 diabetes
[2020-10-28 12:58] LABS: Glucose Point of Care 150 mg/dl (65-105)
[2020-10-28 15:00] VITALS: BP 138/74; PULSE 86; RESP 20; TEMP 36.7; O2SAT 96
[2020-10-28 17:25] LABS: Glucose Point of Care 146 mg/dl (65-105)
[2020-10-28 20:11] VITALS: BP 144/59; PULSE 84; RESP 20; TEMP 36; O2SAT 94
[2020-10-28] MEDS: MINERAL OIL/WHITE PETROLATUM OINTMENT 1 APPLIC EACH EYE (21:08)
[2020-10-28] MEDS: ATORVASTATIN 40 MG TABLET PO (21:08)
[2020-10-28] MEDS: TOLNAFTATE 1% POWDER 45 GM BTL 1 APPLIC TOPICAL (21:08)
[2020-10-28 21:12] LABS: Glucose Point of Care 167 mg/dl (65-105)
[2020-10-29] VITALS (17 sets, daily range): BP systolic 103–163; BP diastolic 41–71; PULSE 60–88; RESP 15–28; TEMP 35.9–36.9; O2SAT 86–100
[2020-10-29] MEDS: LEVOTHYROXINE SODIUM 25 MCG TABLET PO (05:59)
--- NOTE | 2020-10-29 08:12 | P.PN_ITS ---
Progress Note: A&P Assessment and Plan (1) Infection of right below knee amputation: Code(s): T87.43 - Infection of amputation stump, right lower extremity Status: Acute Assessment and Plan: * S/p debridement and wound vac placement; POD 10per Dr. Curtis * Ortho and ID following. Appreciate recommendations * Cont Ortho rec * S/p IV vancomycin and cefepime x 16 completed treatment * future plans for graft (2) UTI (urinary tract infection): Qualifiers: Hematuria presence: without hematuria Urinary tract infection type: acute cystitis Qualified Code(s): N30.00 - Acute cystitis without hematuria Code(s): N39.0 - Urinary tract infection, site not specified Status: Acute Assessment and Plan: * Resolved * UC +E coli and Pseudomonas aeruginosa; per ID, strongly doubt UTI S/p cefepime ID followed, recommendations appreciated (3) Septic shock: Code(s): A41.9 - Sepsis, unspecified organism; R65.21 - Severe sepsis with septic shock Status: Acute Assessment and Plan: * Resolved * Off pressors since 10/14 * S/p broad spectrum abx per ID rec * Ortho, ID following and appreciate rec * BC with 1/2 growing coag negative staph likely contaminate . also with the growth Ecoli and P. Aeruginosa, Which is sensitive to cefepime. Treatment completed infectious disease following (4) C. difficile colitis: Code(s): A04.72 - Enterocolitis due to Clostridium difficile, not specified as recurrent Status: Acute Assessment and Plan: * resolved * patient denies any diarrhea * PO vanc x 16 days per ID rec (5) Acute renal failure superimposed on stage 4 chronic kidney disease: Qualifiers: Acute renal failure type: unspecified Qualified Code(s): N17.9 - Acute kidney failure, unspecified; N18.4 - Chronic kidney disease, stage 4 (severe) Code(s): N17.9 - Acute kidney failure, unspecified; N18.4 - Chronic kidney disease, stage 4 (severe) Status: Acute Assessment and Plan: * Cr 3.20-->3.10-->2.8-->2.9-->2.6 >2.70 * Baseline Cr typically ~3.00 with variability * Nephrology following; appreciate rec * Renal US indicate No left hydronephrosis. Severe right renal atrophy. * renal dose all medications * avoid nephrotoxins agent * Monitor (6) Acute on chronic respiratory failure with hypoxia and hypercapnia: Code(s): J96.21 - Acute and chronic respiratory failure with hypoxia; J96.22 - Acute and chronic respiratory failure with hypercapnia Status: Resolved Assessment and Plan: * patient reintubated today due to hypoxia and unresponsiveness * etiology unknown * patient transferred for to ICU, managed by equipment operator wage hand (7) Encephalopathy: Code(s): G93.40 - Encephalopathy, unspecified Status: Resolved Assessment and Plan: * Likely multifactorial due to above (8) Normal anion gap metabolic acidosis: Code(s): E87.2 - Acidosis Status: Resolved Assessment and Plan: Resolved (9) Bradycardia: Code(s): R00.1 - Bradycardia, unspecified Status: Resolved Assessment and Plan: * Resolved. * Initial EKG showed bradycardia 44 beats per minute * Likely due to her sepsis versuspolypharmacy including a beta-el * Cont cardiology rec; appreciate input. They have signed off * Cont low-dose metoprolol and clonidine per cardiology rec * Hold/d/c verapamil * She is
--- NOTE | 2020-10-29 08:12 | WPDPN ---
Progress Note: A&P Assessment and Plan (1) Infection of right below knee amputation: Code(s): T87.43 - Infection of amputation stump, right lower extremity Status: Acute Assessment and Plan: S/p debridement and wound vac placement; POD 10per Dr. Curtis Ortho and ID following. Appreciate recommendations Cont Ortho rec S/p IV vancomycin and cefepime x 16 completed treatment future plans for graft (2) UTI (urinary tract infection): Qualifiers: Hematuria presence: without hematuria Urinary tract infection type: acute cystitis Qualified Code(s): N30.00 - Acute cystitis without hematuria Code(s): N39.0 - Urinary tract infection, site not specified Status: Acute Assessment and Plan: Resolved UC +E coli and Pseudomonas aeruginosa; per ID, strongly doubt UTI S/p cefepime ID followed, recommendations appreciated (3) Septic shock: Code(s): A41.9 - Sepsis, unspecified organism; R65.21 - Severe sepsis with septic shock Status: Acute Assessment and Plan: Resolved Off pressors since 10/14 S/p broad spectrum abx per ID rec Ortho, ID following and appreciate rec BC with 1/2 growing coag negative staph likely contaminate . also with the growth Ecoli and P. Aeruginosa, Which is sensitive to cefepime. Treatment completed infectious disease following (4) C. difficile colitis: Code(s): A04.72 - Enterocolitis due to Clostridium difficile, not specified as recurrent Status: Acute Assessment and Plan: resolved patient denies any diarrhea PO vanc x 16 days per ID rec (5) Acute renal failure superimposed on stage 4 chronic kidney disease: Qualifiers: Acute renal failure type: unspecified Qualified Code(s): N17.9 - Acute kidney failure, unspecified; N18.4 - Chronic kidney disease, stage 4 (severe) Code(s): N17.9 - Acute kidney failure, unspecified; N18.4 - Chronic kidney disease, stage 4 (severe) Status: Acute Assessment and Plan: Cr 3.20-->3.10-->2.8-->2.9-->2.6 >2.70 Baseline Cr typically ~3.00 with variability Nephrology following; appreciate rec Renal US indicate No left hydronephrosis. Severe right renal atrophy. renal dose all medications avoid nephrotoxins agent Monitor (6) Acute on chronic respiratory failure with hypoxia and hypercapnia: Code(s): J96.21 - Acute and chronic respiratory failure with hypoxia; J96.22 - Acute and chronic respiratory failure with hypercapnia Status: Resolved Assessment and Plan: patient reintubated today due to hypoxia and unresponsiveness etiology unknown patient transferred for to ICU, managed by head piece assembler (7) Encephalopathy: Code(s): G93.40 - Encephalopathy, unspecified Status: Resolved Assessment and Plan: Likely multifactorial due to above (8) Normal anion gap metabolic acidosis: Code(s): E87.2 - Acidosis Status: Resolved Assessment and Plan: Resolved (9) Bradycardia: Code(s): R00.1 - Bradycardia, unspecified Status: Resolved Assessment and Plan: Resolved. Initial EKG showed bradycardia 44 beats per minute Likely due to her sepsis versuspolypharmacy including a beta-le Cont cardiology rec; appreciate input. They have signed off Cont low-dose metoprolol and clonidine per cardiology rec Hold/d/c verapamil She is on p.o. amlodipine as well (10) Hypertension: Qualifiers: Hypertension type: essential hypertension Qualified Code(s): I10 - Essential (primary) hypertension Code(s): I10 - Essential (primary) hypertension Status: Chronic Assessment and Plan: Stable Continue current regimen With amlodipine, clonidine and metoprolol Hydralazine prn Monitor (11) Type 2 diabetes mellitus: Qu
[2020-10-29] MEDS: amLODIPine BESYLATE 5 MG TABLET 10 MG PO (08:14)
[2020-10-29] MEDS: HEPARIN SODIUM 5,000 UNITS/ML VIAL 5000 UNITS SUB-Q ×2 (08:15→20:43)
[2020-10-29] MEDS: FERROUS SULFATE 324 MG TABLET PO (08:15)
[2020-10-29] MEDS: hydrALAZINE HCL 50 MG TABLET 100 MG PO (08:16)
[2020-10-29] MEDS: ONDANSETRON INJ 4 MG/2 ML VIAL IV PUSH (08:16)
[2020-10-29] MEDS: ASPIRIN 81 MG ENTERIC TABLET PO (08:16)
[2020-10-29] MEDS: cloNIDine HCL 0.1 MG TABLET PO (08:16)
[2020-10-29] MEDS: DOCUSATE SODIUM 100 MG CAPSULE PO (08:17)
[2020-10-29] MEDS: METOPROLOL SUCCINATE EXT REL 25 MG TABCR PO (08:17)
[2020-10-29] MEDS: TOLNAFTATE 1% POWDER 45 GM BTL 1 APPLIC TOPICAL ×2 (08:20→20:44)
[2020-10-29] MEDS: PANTOPRAZOLE 40 MG TABLET PO (08:20)
[2020-10-29 08:38] LABS: Glucose Point of Care 132 mg/dl (65-105)
[2020-10-29 08:53] LABS: Hematocrit 36.8 % (37.0-47.0); Hemoglobin 10.5 g/dL (12.0-15.0); Mean Corpuscular HGB Conc 28.5 g/dl (32-36); Mean Corpuscular Hemoglobin 28.5 pg (26-34); Mean Platelet Volume 10.1 fl (7.4-10.4); Platelet Count Result 239 k/mm3 (150-375); Red Blood Count 3.68 M/mm3 (4.2-5.4); Red Cell Distribution Width 17.2 % (11.5-14.5); White Blood Count 6.9 K/mm3 (4.5-10.0)
[2020-10-29 09:29] LABS: Alanine Aminotransferase 12 U/L (4-35); Albumin Level 2.7 g/dL (3.5-5.1); Alkaline Phosphatase 75 U/L (38-126); Anion Gap 7 mmol/L (8-16); Aspartate Amino Transferase 25 U/L (14-36); Bilirubin,Total 0.3 mg/dL (0.2-1.3); Blood Urea Nitrogen 39 mg/dL (7-17); Calcium 7.9 mg/dL (8.4-10.2); Carbon Dioxide 19 mmol/L (22-30); Chloride 105 mmol/L (98-107); Estimated CRCL calculation 25 ml/min; Estimated Glomerular Filt Rate 18; Glucose 133 mg/dL (65-110); Potassium 4.7 mmol/L (3.4-5.0); Sodium 131 mmol/L (137-145)
[2020-10-29 12:49] LABS: Glucose Point of Care 169 mg/dl (65-105)
--- NOTE | 2020-10-29 13:37 | PC.NURSE ---
Patient was found at 1300 unresponsive. She was breathing and had a strong pulse, so a rapid was called. Vitals were taken and were normal, with the exception of her oxygen which was 84% on 6 liters. Accucheck was done and was normal. The steam drier tender was called and she was transferred to ICU 8. Family was called and updated on the situation.
--- NOTE | 2020-10-29 14:18 | WPDCNINT ---
Assessment and Plan Assessment and plan (1) Acute respiratory failure: Code(s): J96.00 - Acute respiratory failure, unspecified whether with hypoxia or hypercapnia Status: Acute Assessment and Plan: acute hypoxic respiratory failure likely related to aspiration, - intubated patient on 10/29/2020, point intubating the patient a large amount of gastric juices were noticing the hypopharynx and going into the trachea. - Patient placed on CMV mode of ventilation, peep of 8, 100% FiO2, awaiting ABGs - post intubation patient woke up, follows simple commands and nodded to questions appropriately. (2) Acute encephalopathy: Code(s): G93.40 - Encephalopathy, unspecified Status: Acute Assessment and Plan: patient was on the medical floor when she had acute encephalopathy and altered mental status on the morning of 10/29/2020: Prior to that patient's bedside RN said she was awake, alert, oriented - patient did not have a gag, was not responding to pain stimulus - was hypoxic - likely related to respiratory failure secondary to hypoxia - Will add bronchodilator (3) Hypotension: Code(s): I95.9 - Hypotension, unspecified Status: Acute Assessment and Plan: hypotension likely related aspiration pneumonitis, positive-pressure ventilation - given 1 L IV fluid bolus, blood pressures have improved will continue to monitor (4) Delayed surgical wound healing of esyxo-wnz-xowh amputation stump: Code(s): T87.89 - Other complications of amputation stump; T81.89XA - Other complications of procedures, not elsewhere classified, initial encounter Status: Acute Assessment and Plan: ortho following the patient, status post debridement of the right knee lower extremity stump on 10/20/2020 (5) Chronic kidney disease, stage 4 (severe): Code(s): N18.4 - Chronic kidney disease, stage 4 (severe) Status: Chronic Assessment and Plan: patient acute on chronic kidney disease - creatinine has been stable - nephrology following the patientn, - continue monitor renal function, electrolytes and urine output Additional Plan discussed with patient's spouse, updated with patient's condition plan of care. I answered all questions code status: Full code Critical care time spent: 47 minutes This dictation may have been done utilizing a voice recognition system. Attempts have been made to correct errors. However, there may be uncorrected grammatical, spelling, and recognition errors present. Due to a high probability of clinically significant, life threatening deterioration, the patient required my highest level of preparedness to intervene emergently and I personally spent this critical care time directly and personally managing the patient. This critical care time included obtaining a history; examining the patient; pulse oximetry; ordering and review of studies; arranging urgent treatment with development of a management plan; evaluation of patient's response to treatment; frequent reassessment; and discussions with other providers. It was exclusive of separately billable procedures and treating other patients and teaching time. Please see Assessment and Plan section and the rest of the note for further information on patient assessment and treatment International Account Manager Consult Note Consult date: 10/29/20 Time Seen: 13:04 Reason for consult: acute hypoxic respiratory failure, hypotension, unresponsiveness HPI: Rimma Lopes is a 64 year old female with significant past medical history of diabetes type 2, essential hypertension, hyperlipidemia, hypothyroidism, CKD stage 4, recent C diff colitis and was discharged on p.o. vanc, and also had a recent right BKA on 09/[address] Curtis and was also admitted for hypoglycemia and altered mental status from 10/02/2020 to 10/06/2020. on 10/20 patient had a right below-knee amputation debridement including bone and application of wound VAC for wou
[2020-10-29] MEDS: hetaSTARCH 6%/NACL 500 ML 250 ML IV CONT (14:40)
[2020-10-29 14:43] LABS: Alveolar/Arterial O2 Gradient 277.4 mmHg; Base Excess ABG -11.4 mEq/l (+/-2.0); Carboxyhemoglobin 0.3 % THb (0-2.0); Fractional Inspired Oxygen 70 %; HCO3 ABG 19.5 mEq/l (22.0-26.0); Methemoglobin ABG 0.5 %THb (0-1.5); Oxygen Content ABG 15.3 %vol (16.0-22.0); Oxygen Saturation ABG 97.7 % (95.0-100.0); Oxyhemoglobin 97.1 % THb (90.0-100.0); PO2 ABG 144.7 mmHg (80.0-100.0); PO2 FiO2 Ratio Arterial Blood 2.07 %; Reduced Hemoglobin 2.1 %THb (0-5.0)
[2020-10-29 14:47] LABS: PCO2 ABG 71.6 mmHg (35.0-45.0); pH ABG 7.052 (7.350-7.450)
--- NOTE | 2020-10-29 14:47 | WPDPROCEDUR ---
Procedures Intubation Intubation Date: 10/29/20 Consent: emergent A pre-procedural Time-Out was completed immediately before starting the procedure and confirmed: Patient Identification, Site, Procedure, Patient Position and the Availability of Requisite Equipment: Yes Sedative: none Laryngoscope: fiber optic video scope Assist device used: fiber optic device ET tube size: 7.5 Tube secured depth (cm): 23 Tube secured location: lips Tube placement confirmation: visualized tube passing through cords, equal breath sounds bilaterally, no breath sounds over epigastrium and confirmation by capnometry Patient tolerated procedure: well Intubation complications: none Additional comments: ETT was at the jenny, asked respiratory therapist to withdraw ETT 2 cm
[2020-10-29 14:48] LABS: Arterial Blood Gas PEEP 8 cmH2O; Arterial Blood Gas Tidal Volume 0 ml; Arterial Blood Gas Vent Mode ASV; Arterial Blood Gas Ventilator rate 0 /MIN; Device VENTILATOR; Peak Inspiratory Pressure 0 cmH2O; Site Drawn RIGHT BRACHIAL
[2020-10-29 14:49] LABS: Arterial Blood Gas Minute Volume 100 LPM; Arterial Blood Gas Pressure Support 0 cmH2O
[2020-10-29 15:11] LABS: Basophils Absolute Auto 0.1 K/mm3 (0.0-0.1); Basophils Percent Auto 0.6 % (0.2-1.2); Eosinophils Percent Auto 0.2 % (0-4.4); Hematocrit 36.3 % (37.0-47.0); Hemoglobin 10.2 g/dL (12.0-15.0); Immature Granulocyte Percent A 2.2 % (0-0.5); Lymphocytes Absolute Auto 0.41 K/mm3 (0.9-3.2); Lymphocytes Percent Auto 4.4 % (18.3-44.2); Mean Corpuscular HGB Conc 28.1 g/dl (32-36); Mean Corpuscular Volume 103.1 fl (80-100); Mean Platelet Volume 10.3 fl (7.4-10.4); Monocytes Absolute Auto 0.7 K/mm3 (0.1-0.6); Monocytes Percent Auto 7.8 % (2.6-8.5); Neutrophils Absolute Auto 7.9 K/mm3 (1.3-6.7); Neutrophils Percent Auto 84.8 % (45.5-73.1); Nucleated Red Blood Cells Perc 0.2 % (0.0-0.2); Platelet Count Result 264 k/mm3 (150-375); Red Blood Count 3.52 M/mm3 (4.2-5.4); Red Cell Distribution Width 17.3 % (11.5-14.5); White Blood Count 9.3 K/mm3 (4.5-10.0)
--- NOTE | 2020-10-29 15:16 | PC.NURSE ---
This patient, Rimma Lopes, was received from [ [facility] ] on 10/29/20 at 1315. Patient/family oriented to unit policies and routines
[2020-10-29 15:21] LABS: Ammonia < 9 umol/L (9-30)
[2020-10-29 15:23] LABS: Lactic Acid Reflex 0.7 mmol/L (0.7-2.1)
[2020-10-29 15:24] LABS: Alanine Aminotransferase 12 U/L (4-35); Albumin Level 2.5 g/dL (3.5-5.1); Alkaline Phosphatase 69 U/L (38-126); Anion Gap 5 mmol/L (8-16); Aspartate Amino Transferase 22 U/L (14-36); Bilirubin,Total 0.3 mg/dL (0.2-1.3); Blood Urea Nitrogen 38 mg/dL (7-17); CRP < 0.5 mg/dL (<1.0); Calcium 7.7 mg/dL (8.4-10.2); Carbon Dioxide 20 mmol/L (22-30); Chloride 107 mmol/L (98-107); Estimated CRCL calculation 24 ml/min; Estimated Glomerular Filt Rate 16; Glucose 143 mg/dL (65-110); Magnesium 1.8 mg/dL (1.6-2.3); Phosphorus 6.8 mg/dL (2.5-4.5); Potassium 5.1 mmol/L (3.4-5.0); Sodium 132 mmol/L (137-145)
[2020-10-29 15:27] LABS: Hypochromasia 1+ (NORMAL); Platelet Estimate Adequate (Adequate)
[2020-10-29 15:28] LABS: Anisocytosis 2+ (NORMAL)
[2020-10-29 15:33] LABS: Troponin I < 0.012 ng/mL (0.000-0.034)
--- NOTE | 2020-10-29 15:44 | PCPTNOTE ---
Patient transferred to ICU due to change in medical status. PT will discontinue services and await new orders when patient is able to resume PT.
[2020-10-29] MEDS: AMPICILLIN SULB 1.5 GM/NS 50ML 1.5 GM/50 ML VIAL IVPB (16:30)
[2020-10-29 18:10] LABS: Glucose Point of Care 99 mg/dl (65-105)
[2020-10-29 18:54] LABS: Alveolar/Arterial O2 Gradient 164.5 mmHg; Base Excess ABG -5.5 mEq/l (+/-2.0); Fractional Inspired Oxygen 40 %; HCO3 ABG 20.1 mEq/l (22.0-26.0); Oxygen Content ABG 12.5 %vol (16.0-22.0); Oxygen Saturation ABG 94.1 % (95.0-100.0); Oxyhemoglobin 93.5 % THb (90.0-100.0); PCO2 ABG 39.8 mmHg (35.0-45.0); PO2 ABG 74.9 mmHg (80.0-100.0); PO2 FiO2 Ratio Arterial Blood 1.87 %; Total Hemoglobin 9.4 g/dL (12.0-18.0); pH ABG 7.322 (7.350-7.450)
[2020-10-29 18:55] LABS: Device VENTILATOR; Modified Allen's Test Pass; Site Drawn RIGHT RADIAL
[2020-10-29 18:56] LABS: Arterial Blood Gas PEEP 5 cmH2O; Arterial Blood Gas Vent Mode CMV; Arterial Blood Gas Ventilator rate 26 /MIN
[2020-10-29 18:57] LABS: Arterial Blood Gas Tidal Volume 330 ml
[2020-10-29] MEDS: IPRATROPIUM BR 0.02% INH SOLN 0.5 MG/2.5 ML VIAL INHALATION (20:11)
[2020-10-29] MEDS: ALBUTEROL SULFATE NEB 2.5 MG/0.5 ML INH INHALATION (20:11)
[2020-10-29] MEDS: MINERAL OIL/WHITE PETROLATUM OINTMENT 1 APPLIC EACH EYE (20:43)
[2020-10-29] MEDS: ATORVASTATIN 40 MG TABLET PO (20:43)
[2020-10-30] VITALS (31 sets, daily range): BP systolic 129–181; BP diastolic 59–113; PULSE 5–85; RESP 18–28; TEMP 36.1–37.3; O2SAT 95–99; BMI 51.4
[2020-10-30 00:14] LABS: Glucose Point of Care 86 mg/dl (65-105)
[2020-10-30] MEDS: hydrALAZINE HCL 20 MG/ML VIAL 10 MG IV PUSH ×2 (01:06→15:53)
[2020-10-30] MEDS: ALBUTEROL SULFATE NEB 2.5 MG/0.5 ML INH INHALATION ×4 (02:00→20:24)
[2020-10-30] MEDS: IPRATROPIUM BR 0.02% INH SOLN 0.5 MG/2.5 ML VIAL INHALATION ×4 (02:01→20:24)
[2020-10-30] MEDS: AMPICILLIN SULB 1.5 GM/NS 50ML 1.5 GM/50 ML VIAL IVPB ×2 (04:00→15:53)
[2020-10-30] MEDS: hydrALAZINE HCL 50 MG TABLET 100 MG PO ×3 (04:36→15:57)
[2020-10-30] MEDS: cloNIDine HCL 0.1 MG TABLET PO ×2 (04:37→15:57)
[2020-10-30 04:38] LABS: Hematocrit 28.7 % (37.0-47.0); Hemoglobin 8.5 g/dL (12.0-15.0); Mean Corpuscular HGB Conc 29.6 g/dl (32-36); Mean Corpuscular Hemoglobin 28.7 pg (26-34); Platelet Count Result 167 k/mm3 (150-375); Red Blood Count 2.96 M/mm3 (4.2-5.4); Red Cell Distribution Width 16.9 % (11.5-14.5); White Blood Count 5.3 K/mm3 (4.5-10.0)
[2020-10-30 04:52] LABS: Alanine Aminotransferase 9 U/L (4-35); Alkaline Phosphatase 60 U/L (38-126); Anion Gap 5 mmol/L (8-16); Aspartate Amino Transferase 21 U/L (14-36); Bilirubin,Total 0.3 mg/dL (0.2-1.3); Blood Urea Nitrogen 40 mg/dL (7-17); CRP 0.9 mg/dL (<1.0); Calcium 7.3 mg/dL (8.4-10.2); Carbon Dioxide 20 mmol/L (22-30); Chloride 107 mmol/L (98-107); Estimated CRCL calculation 22 ml/min; Estimated Glomerular Filt Rate 15; Glucose 88 mg/dL (65-110); Magnesium 1.7 mg/dL (1.6-2.3); Phosphorus 5.2 mg/dL (2.5-4.5); Potassium 4.4 mmol/L (3.4-5.0); Sodium 132 mmol/L (137-145)
[2020-10-30 04:53] LABS: Lactic Acid Reflex 0.5 mmol/L (0.7-2.1)
[2020-10-30 05:28] LABS: Alveolar/Arterial O2 Gradient 154.9 mmHg; Carboxyhemoglobin 0.3 % THb (0-2.0); Fractional Inspired Oxygen 40 %; Methemoglobin ABG 0.4 %THb (0-1.5); Modified Allen's Test Unable to perform; Oxygen Content ABG 15.7 %vol (16.0-22.0); Oxygen Saturation ABG 96.5 % (95.0-100.0); Oxyhemoglobin 95.1 % THb (90.0-100.0); PCO2 ABG 35.4 mmHg (35.0-45.0); PO2 ABG 89.6 mmHg (80.0-100.0); PO2 FiO2 Ratio Arterial Blood 2.24 %; Reduced Hemoglobin 4.2 %THb (0-5.0); Site Drawn LEFT RADIAL; Total Hemoglobin 11.7 g/dL (12.0-18.0); pH ABG 7.347 (7.350-7.450)
[2020-10-30 05:29] LABS: Device VENTILATOR
[2020-10-30 05:30] LABS: Arterial Blood Gas PEEP 5 cmH2O; Arterial Blood Gas Tidal Volume 330 ml; Arterial Blood Gas Vent Mode CMV; Arterial Blood Gas Ventilator rate 26 /MIN
[2020-10-30] MEDS: LEVOTHYROXINE SODIUM 25 MCG TABLET PO (06:30)
--- NOTE | 2020-10-30 08:05 | PM.IMPN ---
Progress Note: A&P Assessment and Plan (1) Infection of right below knee amputation: Code(s): T87.43 - Infection of amputation stump, right lower extremity Status: Acute Assessment and Plan: S/p debridement and wound vac placement on 10/20; Ortho and ID following. Appreciate recommendations. continue orthopedic follow-up. Wound VAC dressing will be changed today. Abx She is currently on Unasyn for aspiration pneumonitis /pneumonia. She was on cefepime, Flagyl, vancomycin and p.o. vancomycin earlier which has been stopped after she had received it for 11-12 days while p.o. vancomycin for 14 days. Infectious disease service is following. Monitor (2) UTI (urinary tract infection): Qualifiers: Hematuria presence: without hematuria Urinary tract infection type: acute cystitis Qualified Code(s): N30.00 - Acute cystitis without hematuria Code(s): N39.0 - Urinary tract infection, site not specified Status: Acute Assessment and Plan: Resolved. She was on cefepime, Flagyl and vancomycin earlier but now currently on Unasyn. she had received all these antibiotic for 11-12 days. She has finished a course of p.o. vancomycin for C diff colitis. Her blood culture grew coagulase negative Staphylococcus likely contaminant. Will send repeat blood culture today. Urine culture grew E coli and Pseudomonas aeruginosa. Pseudomonas aeruginosa was pretty pansensitive Including cefepime. E coli was sensitive to cefepime as well. (3) Septic shock: Code(s): A41.9 - Sepsis, unspecified organism; R65.21 - Severe sepsis with septic shock Status: Acute Assessment and Plan: Resolved. Likely due to above. Off pressors since 10/14. Ortho, ID following and appreciate rec. Blood culture with 1/2 growing coag negative staph likely contaminate. Urine culture grew Pseudomonas and E coli. She has finished the course of cefepime, vancomycin and Flagyl for total of 11-12 days. She has finished a course of p.o. vancomycin for 14 days as well. Will send repeat blood culture. Continue IV Unasyn for aspiration pneumonia /pneumonitis. continue monitoring clinical improvement (4) C. difficile colitis: Code(s): A04.72 - Enterocolitis due to Clostridium difficile, not specified as recurrent Status: Acute Assessment and Plan: Completed the course of p.o. vancomycin for 14 days. (5) Acute renal failure superimposed on stage 4 chronic kidney disease: Qualifiers: Acute renal failure type: unspecified Qualified Code(s): N17.9 - Acute kidney failure, unspecified; N18.4 - Chronic kidney disease, stage 4 (severe) Code(s): N17.9 - Acute kidney failure, unspecified; N18.4 - Chronic kidney disease, stage 4 (severe) Status: Acute Assessment and Plan: Cr 3.2 today; relatively stable. Baseline Cr typically ~3.00 with variability. Nephrology following; appreciate rec. Renal US as noted above. cont Nephrology rec Monitor fluid status. she seems to have significant peripheral edema. She has received a dose of Lasix today. Strict intake output record and daily weight. Continue to monitor renal parameters and electrolytes. (6) Acute on chronic respiratory failure with hypoxia and hypercapnia: Code(s): J96.21 - Acute and chronic respiratory failure with hypoxia; J96.22 - Acute and chronic respiratory failure with hypercapnia Status: Resolved Assessment and Plan: Resolved; presented with respiratory acidosis and increased lethargy requiring intubation. Patient extubated and tolerated it very well. She has been reintubated on likely secondary to an episode of aspiration pneumonitis/pneumonia. She is currently on SBT trial and seems t
--- NOTE | 2020-10-30 09:03 | PM.PNORT ---
Progress Note: A&P Assessment and Plan (1) Delayed surgical wound healing of [id number] amputation stump: Code(s): T87.89 - Other complications of amputation stump; T81.89XA - Other complications of procedures, not elsewhere classified, initial encounter Status: Acute Assessment and Plan: POD #11: Debridement of right BKA wound (4 weeks status post original amputation) Patient currently intubated due to acute hypoxic respiratory failure likely related to aspiration. Wound VAC dressing in place and functioning well. Surrounding tissue with some swelling, LLE swelling noted as well. No new erythema noted. Wound VAC chamber with serosanguineous drainage. Resume PT/OT when medically stable. Plan for Wound VAC dressing change today. Future plans for graft application when medically stable and overall improvement in wound bed appearance. Subjective Subjective Date/Time Seen: 10/30/20 09:04 Patient currently intubated. Awake. Review of Systems Review of Systems: ROS unobtainable: Yes unobtainable due to endotracheal tube and unobtainable due to medical condition Exam Const: General: comfortable Resp: Effort & Inspection: normal respiratory effort (ETT tube in place ) Cardio: Rate: regular rate Extrem: Right lower extremity: hip/thigh Details: normal to inspection, knee Details: normal to inspection; no tenderness and lower leg (Below-knee amputation.) Details: non-pitting edema Left lower extremity: hip/thigh Details: normal to inspection, knee Details: normal to inspection; no tenderness, ankle (no calf tenderness) Details: normal to inspection, abnormal ROM Details: with range as follows ( Minimal range of motion ankle and hindfoot secondary to fusion); no pain with active ROM and no pain with passive ROM and other ( good capillary refill in toes, 2+ DP pulse, light touch sensation intact); no tenderness ( lateral malleolus, anterior ankle and medial ankle) and no swelling ( moderate anterior ankle, moderate lateral ankle) and foot Details: normal capillary refill, toes with normal ROM, vascular exam Details: dorsalis pedis pulse present and normal capillary refill, tendon exam active flexion normal and active extension normal and motor-sensory exam two point discrimination normal and light-touch normal; no tenderness Other: Right BKA wound VAC in place. Functioning well. Right thigh/knee with edema. LLE with edema as well. Wound VAC drainage appears serosanguineous in chamber. No evidence of purulent drainage. Unable to assess granulation vs necrosis with wound VAC in place. Psych: Mental Status: mental status grossly normal Objective Data Vital Signs Vital Signs: Vital Signs - 24 hr 10/29/20 10:50 10/29/20 13:34 10/29/20 15:17 Temperature Pulse Rate 69 Respiratory Rate Blood Pressure Pulse Oximetry 98 100 100 10/29/20 16:00 10/29/20 16:21 10/29/20 17:09 Temperature 36.2 C L 36.6 C Pulse Rate 69 76 60 Respiratory Rate 26 H Blood Pressure 126/63 103/41 L Pulse Oximetry 99 86 L 100 10/29/20 18:00 10/29/20 20:00 10/29/20 20:11 Temperature 36.9 C Pulse Rate 78 79 78 Respiratory Rate 26 H 16 Blood Pressure 150/67 H 163/71 H Pulse Oximetry 99 99 99 10/29/20 20:28 10/29/20 22:00 10/29/20 22:02 Temperature Pulse Rate 78 68 64 Respiratory Rate 28 H 15 Blood Pressure 157/58 H Pulse Oximetry 98 10/29/20 23:00 10/29/20 23:25 10/30/20 00:00 Temperature 36.9 C Pulse Rate 68 68 Respiratory Rate Blood Pressure Pulse Oximetry 98 10/30/20 00:01 10/30/20 02:00 10/30/20 02:01 Temperature Pulse Rate 71 74 73 Respiratory Rate 20 26 H Blood Pressure 160/68 H 152/79 H Pulse Oximetry 98 98 10/30/20 02:09 10/30/20 02:10 10/30/20 04:00 Temperature Pulse Rate 74 75 83 Respiratory Rate 26 H Blood Pressure Pulse Oximetry 98 10/30/20 04:01 10/30/20 05:57 10/30/20 06:00 Temperature 37.3 C Pulse Rate 79 71 71 Respiratory Rate
[2020-10-30] MEDS: LACTATED RINGERS 1,000 ML 75 ML IV CONT (09:06)
[2020-10-30] MEDS: amLODIPine BESYLATE 5 MG TABLET 10 MG PO (09:06)
[2020-10-30] MEDS: DOCUSATE SODIUM 100 MG CAPSULE PO ×2 (09:07→15:57)
[2020-10-30] MEDS: HEPARIN SODIUM 5,000 UNITS/ML VIAL 5000 UNITS SUB-Q ×2 (09:07→21:36)
[2020-10-30] MEDS: METOPROLOL TARTRATE 25 MG TABLET PO (09:07)
[2020-10-30] MEDS: FERROUS SULFATE 324 MG TABLET PO (09:08)
[2020-10-30] MEDS: ASPIRIN 81 MG ENTERIC TABLET PO (09:08)
[2020-10-30] MEDS: MINERAL OIL/WHITE PETROLATUM OINTMENT 1 APPLIC EACH EYE (09:08)
[2020-10-30] MEDS: PANTOPRAZOLE SODIUM IV 40 MG VIAL IV PUSH (09:08)
[2020-10-30] MEDS: TOLNAFTATE 1% POWDER 45 GM BTL 1 APPLIC TOPICAL ×2 (09:09→21:38)
[2020-10-30] MEDS: EPOETIN ALFA-EPBX 10,000 UNITS/ML VIAL 10000 UNITS SUB-Q (11:29)
[2020-10-30 11:43] LABS: Alveolar/Arterial O2 Gradient 152.4 mmHg; Base Excess ABG -4.4 mEq/l (+/-2.0); Fractional Inspired Oxygen 40 %; HCO3 ABG 20.3 mEq/l (22.0-26.0); Oxygen Content ABG 13.2 %vol (16.0-22.0); Oxygen Saturation ABG 96.9 % (95.0-100.0); Oxyhemoglobin 95.4 % THb (90.0-100.0); PCO2 ABG 35.7 mmHg (35.0-45.0); PO2 ABG 91.7 mmHg (80.0-100.0); PO2 FiO2 Ratio Arterial Blood 2.29 %; Total Hemoglobin 9.7 g/dL (12.0-18.0); pH ABG 7.372 (7.350-7.450)
[2020-10-30 11:44] LABS: Device VENTILATOR; Modified Allen's Test Pass; Site Drawn RIGHT RADIAL
[2020-10-30 11:45] LABS: Arterial Blood Gas PEEP 5 cmH2O; Arterial Blood Gas Pressure Support 8 cmH2O; Arterial Blood Gas Vent Mode SPONTANEOUS
[2020-10-30 12:01] LABS: Glucose Point of Care 79 mg/dl (65-105)
--- NOTE | 2020-10-30 12:17 | PCDIET ---
Nutrition Follow-Up Complete: Nutrition Diagnosis: Inadequate oral intake related to oral intubation/mechanical ventilation as evidenced by NPO status. Nutrition Goal: Patient to meet estimated nutritional needs. Goal not met. Patient currently intubated with plan to extubate today. Recommend starting enteral feedings if unable to extubate later today. Last recorded weight is 131.7 kg which is down from last review. -I/O. Bowel Motility: Last documented BM on 10/28/20 x 2. Labs Reviewed: Hgb (8.5), Hct (28.7), BUN (40), Cr (3.2), Na (132), Alb (2.0), Gwendolyn Ca (8.9), PO4 (5.2) Meds Noted: Albuterol, Lipitor, Retacrit, Norvasc, Catapres, Ferrous Sulfate, Unasyn, Colace, Heparin, Hydralazine, Atrovent, LR at 75mL/hr, Synthroid, Toprol XL, Lopressor, Protonix Additional Notes: Wound vac to right lower leg. Abdomen macerated. Tolnaftate powder ordered. Will continue to monitor with same goal. Nutrition Monitoring and Evaluation: Follow up every 3 days. Follow daily in ICU rounds.
--- NOTE | 2020-10-30 12:29 | WPDINTPN ---
Progress Note: A&P Assessment and Plan (1) Acute respiratory failure: Code(s): J96.00 - Acute respiratory failure, unspecified whether with hypoxia or hypercapnia Status: Acute Assessment and Plan: acute hypoxic respiratory failure likely related to aspiration, - intubated patient on 10/29/2020, at the time of intubating the patient a large amount of gastric juices were noticed in the hypopharynx and going into the trachea. likely aspiration - Patient placed on CMV mode of ventilation, peep of 8, 100% FiO2, awaiting ABGs - post intubation patient woke up, follows simple commands and nodded to questions appropriately. - patient is morning a on 40% FiO2, peep of 8, CMV mode of ventilation. Is awake, alert, not on any sedation - placed patient on SBT, and will evaluate for extubation - chest x-ray reviewed, will diurese patient (2) Acute encephalopathy: Code(s): G93.40 - Encephalopathy, unspecified Status: Acute Assessment and Plan: RESOLVED patient was on the medical floor when she had acute encephalopathy and altered mental status on the morning of 10/29/2020: Prior to that patient's bedside RN said she was awake, alert, oriented - patient did not have a gag, was not responding to pain stimulus - was hypoxic - likely related to respiratory failure secondary to hypoxia - Will add bronchodilator (3) Hypotension: Code(s): I95.9 - Hypotension, unspecified Status: Acute Assessment and Plan: hypotension likely related aspiration pneumonitis, positive-pressure ventilation - given 1 L IV fluid bolus, blood pressures have improved will continue to monitor (4) Delayed surgical wound healing of [id number] amputation stump: Code(s): T87.89 - Other complications of amputation stump; T81.89XA - Other complications of procedures, not elsewhere classified, initial encounter Status: Acute Assessment and Plan: ortho following the patient, status post debridement of the right knee lower extremity stump on 10/20/2020 (5) Chronic kidney disease, stage 4 (severe): Code(s): N18.4 - Chronic kidney disease, stage 4 (severe) Status: Chronic Assessment and Plan: patient acute on chronic kidney disease - creatinine has been stable - nephrology following the patient, - continue monitor renal function, electrolytes and urine output Additional Plan discussed with patient's spouse, updated with patient's condition plan of care. I answered all questions code status: Full code Critical care time spent: 34 minutes This dictation may have been done utilizing a voice recognition system. Attempts have been made to correct errors. However, there may be uncorrected grammatical, spelling, and recognition errors present. Due to a high probability of clinically significant, life threatening deterioration, the patient required my highest level of preparedness to intervene emergently and I personally spent this critical care time directly and personally managing the patient. This critical care time included obtaining a history; examining the patient; pulse oximetry; ordering and review of studies; arranging urgent treatment with development of a management plan; evaluation of patient's response to treatment; frequent reassessment; and discussions with other providers. It was exclusive of separately billable procedures and treating other patients and teaching time. Please see Assessment and Plan section and the rest of the note for further information on patient assessment and treatment Subjective Date/time seen: 10/30/20 12:29 Interval history: Reason for consult: acute hypoxic respiratory failure, hypotension, unresponsiveness - intubated on 10/29/2020 the medical floor during a rapid response 10/30/2020: Patient seen and examined the ICU, is awake, alert, nods to questions and follows simple commands in all extremities. Patient is off all sedation. 40% FiO
[2020-10-30] MEDS: LABETALOL HCL INJ 100 MG/20 ML VIAL 20 MG IV PUSH (13:31)
[2020-10-30] MEDS: FUROSEMIDE INJ 40 MG/4 ML VIAL IV PUSH (13:32)
[2020-10-30 18:14] LABS: Glucose Point of Care 77 mg/dl (65-105)
[2020-10-30] MEDS: ATORVASTATIN 40 MG TABLET PO (21:36)
[2020-10-30] MEDS: METOPROLOL TARTRATE 50 MG TAB 100 MG PO (21:37)
[2020-10-31] VITALS (23 sets, daily range): BP systolic 119–169; BP diastolic 40–119; PULSE 62–85; RESP 18–33; TEMP 36.6–36.8; O2SAT 89–98
[2020-10-31 00:22] LABS: Glucose Point of Care 80 mg/dl (65-105)
[2020-10-31] MEDS: ALBUTEROL SULFATE NEB 2.5 MG/0.5 ML INH INHALATION ×4 (02:31→20:49)
[2020-10-31] MEDS: IPRATROPIUM BR 0.02% INH SOLN 0.5 MG/2.5 ML VIAL INHALATION ×4 (02:31→20:49)
[2020-10-31] MEDS: AMPICILLIN SULB 1.5 GM/NS 50ML 1.5 GM/50 ML VIAL IVPB ×2 (02:40→14:30)
[2020-10-31 05:40] LABS: Alveolar/Arterial O2 Gradient 67.7 mmHg; Base Excess ABG -6.6 mEq/l (+/-2.0); Carboxyhemoglobin 0.3 % THb (0-2.0); Device NASAL CANNULA; Fractional Inspired Oxygen 28 %; HCO3 ABG 19.5 mEq/l (22.0-26.0); Methemoglobin ABG 0.1 %THb (0-1.5); Oxygen Content ABG 15.3 %vol (16.0-22.0); Oxygen Saturation ABG 95.1 % (95.0-100.0); PCO2 ABG 41.4 mmHg (35.0-45.0); PO2 ABG 83.1 mmHg (80.0-100.0); PO2 FiO2 Ratio Arterial Blood 2.97 %; Reduced Hemoglobin 5.6 %THb (0-5.0); Site Drawn RIGHT BRACHIAL; Total Hemoglobin 11.5 g/dL (12.0-18.0); pH ABG 7.292 (7.350-7.450)
[2020-10-31 05:58] LABS: Glucose Point of Care 74 mg/dl (65-105)
[2020-10-31] MEDS: LEVOTHYROXINE SODIUM 25 MCG TABLET PO (06:03)
[2020-10-31 07:14] LABS: Hematocrit 31.5 % (37.0-47.0); Hemoglobin 9.4 g/dL (12.0-15.0); Mean Corpuscular HGB Conc 29.8 g/dl (32-36); Mean Corpuscular Hemoglobin 28.7 pg (26-34); Mean Corpuscular Volume 96.3 fl (80-100); Mean Platelet Volume 10.2 fl (7.4-10.4); Platelet Count Result 210 k/mm3 (150-375); Red Blood Count 3.27 M/mm3 (4.2-5.4); Red Cell Distribution Width 17.3 % (11.5-14.5); White Blood Count 4.5 K/mm3 (4.5-10.0)
[2020-10-31 07:23] LABS: Lactic Acid Reflex 0.5 mmol/L (0.7-2.1)
[2020-10-31 07:28] LABS: Alanine Aminotransferase 10 U/L (4-35); Albumin Level 1.9 g/dL (3.5-5.1); Alkaline Phosphatase 66 U/L (38-126); Anion Gap 8 mmol/L (8-16); Aspartate Amino Transferase 23 U/L (14-36); Bilirubin,Total 0.3 mg/dL (0.2-1.3); Blood Urea Nitrogen 42 mg/dL (7-17); CRP 2.7 mg/dL (<1.0); Calcium 7.5 mg/dL (8.4-10.2); Carbon Dioxide 20 mmol/L (22-30); Chloride 105 mmol/L (98-107); Estimated CRCL calculation 19 ml/min; Estimated Glomerular Filt Rate 13; Glucose 84 mg/dL (65-110); Magnesium 1.8 mg/dL (1.6-2.3); Potassium 4.2 mmol/L (3.4-5.0); Sodium 133 mmol/L (137-145)
--- NOTE | 2020-10-31 08:21 | PM.PNORT ---
Progress Note: A&P Assessment and Plan (1) Delayed surgical wound healing of yvhlf-ycw-vnqd amputation stump: Code(s): T87.89 - Other complications of amputation stump; T81.89XA - Other complications of procedures, not elsewhere classified, initial encounter Status: Acute Assessment and Plan: Patient better this morning. No new complaints. Extubated yesterday. Wound VAC dressing change yesterday. Wound appears stable. Plan for wound VAC dressing change tomorrow. Up to chair as tolerated. Subjective Subjective Date/Time Seen: 10/31/20 08:21 Principal diagnosis: Right below-knee amputation Interval history: evidence of past 48 hours reviewed. Patient with respiratory failure with suspected aspiration. Intubated and moved to the ICU. Extubated yesterday. Patient awake and alert. States breathing nonlabored. Minimal pain right leg. Wound VAC dressing change yesterday. Exam Const: General: cooperative, comfortable, no acute distress and awake Nutritional Appearance: obese HENMT: Head: normal to inspection, normocephalic and atraumatic Eyes: Conjunctivae: conjunctivae normal Sclera: sclerae normal Neck: Neck: supple and nontender Resp: Effort & Inspection: normal respiratory effort GI: Inspection: non-distended GI Palp: Yes Soft to palpation, No Tenderness to palpation present (GI) and No Guarding due to palpation present (GI) : General: Yes deferred Skin: Wounds: wounds noted (see below ) Extrem: Right lower extremity: hip/thigh Details: normal to inspection, knee Details: normal to inspection; no tenderness and lower leg (Below-knee amputation.) Left lower extremity: hip/thigh Details: normal to inspection, knee Details: abnormal ROM ( range of motion deferred secondary to fracture), ankle (no calf tenderness) Details: normal to inspection, abnormal ROM Details: with range as follows ( Minimal range of motion ankle and hindfoot secondary to fusion); no pain with active ROM and no pain with passive ROM and other ( good capillary refill in toes, 2+ DP pulse, light touch sensation intact); no tenderness ( lateral malleolus, anterior ankle and medial ankle) and no swelling ( moderate anterior ankle, moderate lateral ankle) and foot Details: normal capillary refill, toes with normal ROM, vascular exam Details: dorsalis pedis pulse present and normal capillary refill, tendon exam active flexion normal and active extension normal and motor-sensory exam two point discrimination normal and light-touch normal; no tenderness Other: Right BKA wound VAC in place. Functioning well. Right knee without pain/swelling. No purulence or signs of infection. Objective Data Vital Signs Vital Signs: Vital Signs - 24 hr 10/30/20 08:27 10/30/20 08:29 10/30/20 08:36 Temperature Pulse Rate 79 79 85 Respiratory Rate 26 H 27 H Blood Pressure Pulse Oximetry 99 10/30/20 09:07 10/30/20 10:00 10/30/20 10:32 Temperature Pulse Rate 85 68 71 Respiratory Rate 22 H Blood Pressure 174/71 H Pulse Oximetry 98 99 10/30/20 12:00 10/30/20 12:02 10/30/20 14:00 Temperature 96.9 F L Pulse Rate 80 82 80 Respiratory Rate 19 18 Blood Pressure 175/68 H 168/62 H Pulse Oximetry 96 95 96 10/30/20 14:19 10/30/20 14:29 10/30/20 16:00 Temperature Pulse Rate 81 83 85 Respiratory Rate 25 H 28 H 18 Blood Pressure 175/67 H Pulse Oximetry 96 10/30/20 18:00 10/30/20 20:00 10/30/20 20:25 Temperature 98.5 F Pulse Rate 77 80 84 Respiratory Rate 19 20 26 H Blood Pressure 129/113 H 149/62 H Pulse Oximetry 95 95 95 10/30/20 20:33 10/30/20 21:37 10/30/20 22:00 Temperature Pulse Rate 81 83 70 Respiratory Rate 20 18 Blood Pressure 158/59 H Pulse Oximetry 97 10/31/20 00:00 10/31/20 02:00 10/31/20 02:32 Temperature 98.3 F Pulse Rate 65 69 69 Respiratory Rate 22 H 20 25 H Blood Pressure 133/53 L 134/54 L Pulse Oximetry 96 94 10/31/20 02:42 10/31/20 04:00 10/31/20
[2020-10-31] MEDS: SODIUM BICARBONATE TAB 650 MG TABLET PO ×2 (09:11→16:09)
[2020-10-31] MEDS: FUROSEMIDE INJ 100 MG/10 ML VIAL 80 MG IV PUSH (09:11)
[2020-10-31] MEDS: PANTOPRAZOLE SODIUM IV 40 MG VIAL IV PUSH (09:12)
[2020-10-31] MEDS: cloNIDine HCL 0.1 MG TABLET PO ×3 (09:12→16:09)
[2020-10-31] MEDS: DOXAZOSIN MESYLATE 1 MG TABLET PO (09:12)
[2020-10-31] MEDS: hydrALAZINE HCL 50 MG TABLET 100 MG PO ×3 (09:13→16:09)
[2020-10-31] MEDS: HEPARIN SODIUM 5,000 UNITS/ML VIAL 5000 UNITS SUB-Q ×2 (09:13→21:52)
[2020-10-31] MEDS: ASPIRIN 81 MG ENTERIC TABLET PO (09:13)
[2020-10-31] MEDS: METOPROLOL TARTRATE 50 MG TAB 100 MG PO ×2 (09:13→21:52)
[2020-10-31] MEDS: DOCUSATE SODIUM 100 MG CAPSULE PO ×2 (09:13→16:09)
[2020-10-31] MEDS: FERROUS SULFATE 324 MG TABLET PO (09:14)
[2020-10-31] MEDS: amLODIPine BESYLATE 5 MG TABLET 10 MG PO (09:14)
[2020-10-31] MEDS: TOLNAFTATE 1% POWDER 45 GM BTL 1 APPLIC TOPICAL ×2 (09:14→21:52)
--- NOTE | 2020-10-31 10:52 | PCDIET ---
Nutrition Follow-Up Complete: Nutrition Diagnosis: Inadequate oral intake related to oral intubation/mechanical ventilation as evidenced by NPO status. Nutrition Goal: Patient to meet estimated nutritional needs. Goal in progress. Patient reports good appetite on easy to chew diet with Ensure Compact BID. Recommended change supplement to Karl (80kcal, 2.5g protein) BID to which patient agreeable. Recommend adding diabetic, no added salt diet with phosphorus binder at meal times. Last recorded weight is 130.2 kg which is down from last review. -I/O. Bowel Motility: Last documented BM on 10/28/20 x 2. Labs Reviewed: RBC (3.27), Hgb (9.4), Hct (31.5), BUN (42), Cr (3.6), Na (133), Alb (1.9), Gwendolyn Ca (9.18), PO4 (6.0) Meds Noted: Albuterol, Norvasc, Unasyn, Lipitor, Catapres, Colace, Cardura, Retacrit, Ferrous Sulfate, Heparin, Apresoline, Atrovent, Synthroid, Lopressor, Protonix, Sodium Bicarbonate, Lasix Additional Notes: Right leg with wound vac. Abdomen macerated. Will continue to monitor with same goal. Nutrition Monitoring and Evaluation Follow up every 3 days. Follow daily in ICU rounds.
--- NOTE | 2020-10-31 11:40 | WPDINTPN ---
Progress Note: A&P Assessment and Plan (1) Acute on chronic respiratory failure with hypoxia and hypercapnia: Code(s): J96.21 - Acute and chronic respiratory failure with hypoxia; J96.22 - Acute and chronic respiratory failure with hypercapnia Status: Resolved Assessment and Plan: Resolved; presented with respiratory acidosis and increased lethargy requiring intubation. Patient extubated and was reintubated on likely secondary to an episode of aspiration pneumonitis/pneumonia versus hypercarbia. she was extubated 10/30 saturating well on nasal cannula incentive spirometry continue Unasyn for 7 days (2) Infection of right below knee amputation: Code(s): T87.43 - Infection of amputation stump, right lower extremity Status: Acute Assessment and Plan: S/p debridement and wound vac placement on 10/20; Ortho and ID following. Appreciate recommendations. continue orthopedic follow-up. Wound VAC dressing change per orthopedics Abx She is currently on Unasyn for aspiration pneumonitis /pneumonia. She was on cefepime, Flagyl, vancomycin and p.o. vancomycin earlier which has been stopped after she had received it for 11-12 days while p.o. vancomycin for 14 days. Infectious disease service is following. (3) UTI (urinary tract infection): Qualifiers: Hematuria presence: without hematuria Urinary tract infection type: acute cystitis Qualified Code(s): N30.00 - Acute cystitis without hematuria Code(s): N39.0 - Urinary tract infection, site not specified Status: Acute Assessment and Plan: Resolved. She was on cefepime, Flagyl and vancomycin earlier but now currently on Unasyn. she had received all these antibiotic for 11-12 days. She has finished a course of p.o. vancomycin for C diff colitis. Her blood culture grew coagulase negative Staphylococcus likely contaminant. repeat blood cultures are pending Urine culture grew E coli and Pseudomonas aeruginosa. Pseudomonas aeruginosa was pretty pansensitive Including cefepime. E coli was sensitive to cefepime as well. (4) Septic shock: Code(s): A41.9 - Sepsis, unspecified organism; R65.21 - Severe sepsis with septic shock Status: Acute Assessment and Plan: Resolved. Likely due to above. Off pressors since 10/14. (5) C. difficile colitis: Code(s): A04.72 - Enterocolitis due to Clostridium difficile, not specified as recurrent Status: Acute Assessment and Plan: Completed the course of p.o. vancomycin for 14 days. (6) Acute renal failure superimposed on stage 4 chronic kidney disease: Qualifiers: Acute renal failure type: unspecified Qualified Code(s): N17.9 - Acute kidney failure, unspecified; N18.4 - Chronic kidney disease, stage 4 (severe) Code(s): N17.9 - Acute kidney failure, unspecified; N18.4 - Chronic kidney disease, stage 4 (severe) Status: Acute Assessment and Plan: Cr 3. 6 today Baseline Cr typically ~3.00 with variability. Nephrology following; appreciate rec. Renal US as noted above. cont Nephrology rec Monitor fluid status. she seems to have significant peripheral edema. will give Lasix today Strict intake output record and daily weight. Continue to monitor renal parameters and electrolytes. (7) Normal anion gap metabolic acidosis: Code(s): E87.2 - Acidosis Status: Resolved Assessment and Plan: secondary renal disease p.o. bicarb (8) Hypertension: Qualifiers: Hypertension type: essential hypertension Qualified Code(s): I10 - Essential (primary) hypertension Code(s): I10 - Essential (primary) hypertension Status: Chronic Assessment and Plan: blood pressure elevated. patient is currently onh amlodipine, clonidine, hydralazine and metoprolol. increase clonidine to t.i.d. and resume Cardura continue Hydralazine on as needed basis a blood pr
[2020-10-31 12:21] LABS: Glucose Point of Care 176 mg/dl (65-105)
[2020-10-31 18:49] LABS: Glucose Point of Care 141 mg/dl (65-105)
[2020-10-31] MEDS: ATORVASTATIN 40 MG TABLET PO (21:52)
[2020-10-31] MEDS: ACETAMINOPHEN 325 MG TABLET 650 MG PO (21:56)
[2020-11-01] VITALS (24 sets, daily range): BP systolic 135–153; BP diastolic 59–60; PULSE 58–82; RESP 18–24; TEMP 36.6–37.1; O2SAT 92–100; BMI 10.0
[2020-11-01 00:52] LABS: Glucose Point of Care 138 mg/dl (65-105)
[2020-11-01] MEDS: IPRATROPIUM BR 0.02% INH SOLN 0.5 MG/2.5 ML VIAL INHALATION ×4 (02:31→20:03)
[2020-11-01] MEDS: ALBUTEROL SULFATE NEB 2.5 MG/0.5 ML INH INHALATION ×4 (02:31→20:03)
[2020-11-01] MEDS: AMPICILLIN SULB 1.5 GM/NS 50ML 1.5 GM/50 ML VIAL IVPB ×2 (03:39→16:28)
[2020-11-01 05:10] LABS: Hematocrit 29.6 % (37.0-47.0); Hemoglobin 8.7 g/dL (12.0-15.0); Mean Corpuscular HGB Conc 29.4 g/dl (32-36); Mean Corpuscular Hemoglobin 28.4 pg (26-34); Mean Corpuscular Volume 96.7 fl (80-100); Mean Platelet Volume 10.3 fl (7.4-10.4); Platelet Count Result 199 k/mm3 (150-375); Red Blood Count 3.06 M/mm3 (4.2-5.4); Red Cell Distribution Width 17.5 % (11.5-14.5); White Blood Count 4.9 K/mm3 (4.5-10.0)
[2020-11-01 05:29] LABS: Alanine Aminotransferase 9 U/L (4-35); Albumin Level 1.9 g/dL (3.5-5.1); Alkaline Phosphatase 59 U/L (38-126); Anion Gap 5 mmol/L (8-16); Aspartate Amino Transferase 17 U/L (14-36); Bilirubin,Total 0.3 mg/dL (0.2-1.3); Blood Urea Nitrogen 47 mg/dL (7-17); Calcium 7.4 mg/dL (8.4-10.2); Carbon Dioxide 21 mmol/L (22-30); Chloride 107 mmol/L (98-107); Estimated CRCL calculation 19 ml/min; Estimated Glomerular Filt Rate 13; Glucose 106 mg/dL (65-110); Magnesium 1.8 mg/dL (1.6-2.3); Phosphorus 5.5 mg/dL (2.5-4.5); Potassium 4.2 mmol/L (3.4-5.0); Sodium 133 mmol/L (137-145)
[2020-11-01 07:04] LABS: Glucose Point of Care 102 mg/dl (65-105)
[2020-11-01] MEDS: LEVOTHYROXINE SODIUM 25 MCG TABLET PO (07:12)
[2020-11-01 08:00] LABS: Glucose Point of Care 132 mg/dl (65-105)
[2020-11-01] MEDS: hydrALAZINE HCL 50 MG TABLET 100 MG PO ×3 (09:08→18:11)
[2020-11-01] MEDS: cloNIDine HCL 0.1 MG TABLET PO ×3 (09:08→18:11)
[2020-11-01] MEDS: METOPROLOL TARTRATE 50 MG TAB 100 MG PO ×2 (09:08→21:41)
[2020-11-01] MEDS: amLODIPine BESYLATE 5 MG TABLET 10 MG PO (09:08)
[2020-11-01] MEDS: DOXAZOSIN MESYLATE 1 MG TABLET PO (09:08)
[2020-11-01] MEDS: SODIUM BICARBONATE TAB 650 MG TABLET PO ×2 (09:08→18:11)
[2020-11-01] MEDS: PANTOPRAZOLE SODIUM IV 40 MG VIAL IV PUSH (09:08)
[2020-11-01] MEDS: ASPIRIN 81 MG ENTERIC TABLET PO (09:08)
[2020-11-01] MEDS: HEPARIN SODIUM 5,000 UNITS/ML VIAL 5000 UNITS SUB-Q ×2 (09:09→21:41)
[2020-11-01] MEDS: TOLNAFTATE 1% POWDER 45 GM BTL 1 APPLIC TOPICAL ×2 (09:09→21:42)
[2020-11-01] MEDS: DOCUSATE SODIUM 100 MG CAPSULE PO ×2 (09:09→18:11)
[2020-11-01] MEDS: FERROUS SULFATE 324 MG TABLET PO (09:09)
--- NOTE | 2020-11-01 10:28 | P.PNNP_ITS ---
Progress Note: A&P Assessment and Plan (1) Chronic kidney disease, stage 4 (severe): Code(s): N18.4 - Chronic kidney disease, stage 4 (severe) Status: Chronic Assessment and Plan: * creatinine is a little higher than usual. It sofía from 3-3.6 over the last couple of days. * follows with Dr. Adrian Pena for CKD management * most likely due to diabetes, hypertension, and vascular disease * possible element of SARAH * Not on diuretics. * No sign of infection such as fever or elevated white count. * No rash to suggest an allergic reaction. * she does not appear dehydrated. Chest x-ray shows some pleural effusions. * Consider 3rd spacing and pre renal from the low albumin? * Will check a renal ultrasound and urine electrolytes to see what is going on. (2) Metabolic acidosis: Code(s): E87.2 - Acidosis Status: Acute Assessment and Plan: * improving at this time * CO2 is slowly improved at 21 (3) Septic shock: Code(s): A41.9 - Sepsis, unspecified organism; R65.21 - Severe sepsis with septic shock Status: Acute Assessment and Plan: * resolved * off all pressor therapy * remains on antibiotics (4) Hypertension: Qualifiers: Hypertension type: essential hypertension Qualified Code(s): I10 - Essential (primary) hypertension Code(s): I10 - Essential (primary) hypertension Status: Chronic Assessment and Plan: * blood pressure under good control (5) Anemia: Code(s): D64.9 - Anemia, unspecified Status: Chronic Assessment and Plan: * due to underlying CKD and acute illness * on Epogen * hemoglobin is in the 8 (6) Type 2 diabetes mellitus: Qualifiers: Diabetes mellitus chcf insulin use: without intermediate frame tender use Diabetes mellitus complication status: with kidney complications Diabetes mellitus complication detail: with chronic kidney disease Chronic kidney disease stage: stage 4 (severe) Qualified Code(s): E11.22 - Type 2 diabetes mellitus with diabetic chronic kidney disease; N18.4 - Chronic kidney disease, stage 4 (severe) Code(s): E11.9 - Type 2 diabetes mellitus without complications Status: Acute Assessment and Plan: * follow accuchecks * on SSI Subjective Date/time seen: 11/01/20 10:28 Interval history: Dr. Ruff had signed off the case last because kidney function was stable at her baseline. In the last couple of days the creatinine has risen. Dr Shaw and I talked yesterday and told me that the creatinine was up a little but not to worry about it unless still high today. patient is awake feels okay. No shortness of breath. She does have some swelling. Exam Narrative: Exam Narrative: General: WD/WN female in NAD Heart: normal S1 and S2; no rub Lungs: clear to auscultation Abdomen: soft, nontender, nondistended, positive bowel sounds Extremities: no cyanosis or clubbing; 1+ edema; s/p right BKA Skin: wound vac in place On the right stump Objective Data Vital Signs Vital Signs: Vital Signs - 24 hr 10/31/20 12:00 10/31/20 13:51 10/31/20 13:59 Temperature Pulse Rate 73 71 71 Respiratory Rate 29 H 18 22 H Blood Pressure 169/70 H Pulse Oximetry 90 10/31/20 14:00 10/31/20 16:00 10/31/20 18:00 Temperature 36.6 C Pulse Rate 69 73 6
--- NOTE | 2020-11-01 10:28 | PM.PNNEP ---
Progress Note: A&P Assessment and Plan (1) Chronic kidney disease, stage 4 (severe): Code(s): N18.4 - Chronic kidney disease, stage 4 (severe) Status: Chronic Assessment and Plan: creatinine is a little higher than usual. It sofía from 3-3.6 over the last couple of days. follows with Dr. Adrian Pena for CKD management most likely due to diabetes, hypertension, and vascular disease possible element of SARAH Not on diuretics. No sign of infection such as fever or elevated white count. No rash to suggest an allergic reaction. she does not appear dehydrated. Chest x-ray shows some pleural effusions. Consider 3rd spacing and pre renal from the low albumin? Will check a renal ultrasound and urine electrolytes to see what is going on. (2) Metabolic acidosis: Code(s): E87.2 - Acidosis Status: Acute Assessment and Plan: improving at this time CO2 is slowly improved at 21 (3) Septic shock: Code(s): A41.9 - Sepsis, unspecified organism; R65.21 - Severe sepsis with septic shock Status: Acute Assessment and Plan: resolved off all pressor therapy remains on antibiotics (4) Hypertension: Qualifiers: Hypertension type: essential hypertension Qualified Code(s): I10 - Essential (primary) hypertension Code(s): I10 - Essential (primary) hypertension Status: Chronic Assessment and Plan: blood pressure under good control (5) Anemia: Code(s): D64.9 - Anemia, unspecified Status: Chronic Assessment and Plan: due to underlying CKD and acute illness on Epogen hemoglobin is in the 8 (6) Type 2 diabetes mellitus: Qualifiers: Diabetes mellitus termination clerk insulin use: without termination clerk use Diabetes mellitus complication status: with kidney complications Diabetes mellitus complication detail: with chronic kidney disease Chronic kidney disease stage: stage 4 (severe) Qualified Code(s): E11.22 - Type 2 diabetes mellitus with diabetic chronic kidney disease; N18.4 - Chronic kidney disease, stage 4 (severe) Code(s): E11.9 - Type 2 diabetes mellitus without complications Status: Acute Assessment and Plan: follow accuchecks on SSI Subjective Date/time seen: 11/01/20 10:28 Interval history: Dr. Ruff had signed off the case last because kidney function was stable at her baseline. In the last couple of days the creatinine has risen. Dr Shaw and I talked yesterday and told me that the creatinine was up a little but not to worry about it unless still high today. patient is awake feels okay. No shortness of breath. She does have some swelling. Exam Narrative: Exam Narrative: General: WD/WN female in NAD Heart: normal S1 and S2; no rub Lungs: clear to auscultation Abdomen: soft, nontender, nondistended, positive bowel sounds Extremities: no cyanosis or clubbing; 1+ edema; s/p right BKA Skin: wound vac in place On the right stump Objective Data Vital Signs Vital Signs: Vital Signs - 24 hr 10/31/20 12:00 10/31/20 13:51 10/31/20 13:59 Temperature Pulse Rate 73 71 71 Respiratory Rate 29 H 18 22 H Blood Pressure 169/70 H Pulse Oximetry 90 10/31/20 14:00 10/31/20 16:00 10/31/20 18:00 Temperature 36.6 C Pulse Rate 69 73 69 Respiratory Rate 33 H 18 Blood Pressure 169/70 H 128/72 Pulse Oximetry 98 98 10/31/20 20:00 10/31/20 20:49 10/31/20 20:50 Temperature 36.7 C Pulse Rate 74 70 85 Respiratory Rate 18 20 Blood Pressure 134/52 L Pulse Oximetry 97 95 10/31/20 20:56 10/31/20 21:52 10/31/20 22:00 Temperature Pulse Rate 70 74 76 Respiratory Rate Blood Pressure Pulse Oximetry 10/31/20 23:58 11/01/20 00:00 11/01/20 02:00 Temperature 36.6 C Pulse Rate 62 58 L 65 Respiratory Rate 22 H Blood Pressure 119/40 L Pulse Oximetry 94 11/01/20 02:32 11/01/20 02:40
--- NOTE | 2020-11-01 12:22 | PM.IMPN ---
Progress Note: A&P Assessment and Plan (1) Acute on chronic respiratory failure with hypoxia and hypercapnia: Code(s): J96.21 - Acute and chronic respiratory failure with hypoxia; J96.22 - Acute and chronic respiratory failure with hypercapnia Status: Resolved Assessment and Plan: Resolved; presented with respiratory acidosis and increased lethargy requiring intubation. Patient extubated and was reintubated on likely secondary to an episode of aspiration pneumonitis/pneumonia versus hypercarbia. she was extubated 10/30 saturating well on nasal cannula incentive spirometry continuing Unasyn for 7 days (2) Infection of right below knee amputation: Code(s): T87.43 - Infection of amputation stump, right lower extremity Status: Acute Assessment and Plan: S/p debridement and wound vac placement on 10/20; Ortho and ID following. Appreciate recommendations. continue orthopedic follow-up. Wound VAC dressing change per orthopedics Abx She is currently on Unasyn for aspiration pneumonitis /pneumonia. She was on cefepime, Flagyl, vancomycin and p.o. vancomycin earlier which has been stopped after she had received it for 11-12 days while p.o. vancomycin for 14 days. Infectious disease service is following. (3) UTI (urinary tract infection): Qualifiers: Hematuria presence: without hematuria Urinary tract infection type: acute cystitis Qualified Code(s): N30.00 - Acute cystitis without hematuria Code(s): N39.0 - Urinary tract infection, site not specified Status: Acute Assessment and Plan: Resolved. She was on cefepime, Flagyl and vancomycin earlier but now currently on Unasyn. she had received all these antibiotic for 11-12 days. She has finished a course of p.o. vancomycin for C diff colitis. Her blood culture grew coagulase negative Staphylococcus likely contaminant. repeat blood cultures are pending Urine culture grew E coli and Pseudomonas aeruginosa. Pseudomonas aeruginosa was pretty pansensitive Including cefepime. E coli was sensitive to cefepime as well. ID following (4) Septic shock: Code(s): A41.9 - Sepsis, unspecified organism; R65.21 - Severe sepsis with septic shock Status: Acute Assessment and Plan: Resolved. Off pressors since 10/14. (5) C. difficile colitis: Code(s): A04.72 - Enterocolitis due to Clostridium difficile, not specified as recurrent Status: Acute Assessment and Plan: Completed the course of p.o. vancomycin for 14 days. (6) Acute renal failure superimposed on stage 4 chronic kidney disease: Qualifiers: Acute renal failure type: unspecified Qualified Code(s): N17.9 - Acute kidney failure, unspecified; N18.4 - Chronic kidney disease, stage 4 (severe) Code(s): N17.9 - Acute kidney failure, unspecified; N18.4 - Chronic kidney disease, stage 4 (severe) Status: Acute Assessment and Plan: Cr 3. 6 today Baseline Cr typically ~3.00 with variability. Nephrology following; appreciate rec. Renal US as noted above. cont Nephrology rec Monitor fluid status. she seems to have significant peripheral edema. will give Lasix today Strict intake output record and daily weight. Continue to monitor renal parameters and electrolytes. (7) Normal anion gap metabolic acidosis: Code(s): E87.2 - Acidosis Status: Resolved Assessment and Plan: secondary renal disease p.o. bicarb (8) Hypertension: Qualifiers: Hypertension type: essential hypertension Qualified Code(s): I10 - Essential (primary) hypertension Code(s): I10 - Essential (primary) hypertension Status: Chronic Assessment and Plan: blood pressure elevated. patient is currently on amlodipine, clonidine, hydralazine and metoprolol. increase clonidine to t.i.d. and resume Cardura continue Hydralazine on as needed basis a blood pre
[2020-11-01 13:23] LABS: Glucose Point of Care 106 mg/dl (65-105)
[2020-11-01] MEDS: EPOETIN ALFA-EPBX 10,000 UNITS/ML VIAL 10000 UNITS SUB-Q (13:31)
--- NOTE | 2020-11-01 14:39 | PM.PNORT ---
Progress Note: A&P Assessment and Plan (1) Delayed surgical wound healing of [id number] amputation stump: Code(s): T87.89 - Other complications of amputation stump; T81.89XA - Other complications of procedures, not elsewhere classified, initial encounter Status: Acute Assessment and Plan: Patient better this morning. No new complaints. Transfer from ICU yesterday. Wound VAC dressing change Today. Wound appears stable. Plan for wound VAC 11/03. Up to chair as tolerated. Subjective Subjective Date/Time Seen: 11/01/20 08:15 Post Op day: 13 Principal diagnosis: Right below-knee amputation Interval history: patient transferred to IMU yesterday after completing respiratory trial. No complaints overnight. Wound care team present for dressing change. Exam Const: General: cooperative, comfortable, no acute distress and awake Nutritional Appearance: obese HENMT: Head: normal to inspection, normocephalic and atraumatic Eyes: Conjunctivae: conjunctivae normal Sclera: sclerae normal Neck: Neck: supple and nontender Resp: Effort & Inspection: normal respiratory effort GI: Inspection: non-distended GI Palp: Yes Soft to palpation, No Tenderness to palpation present (GI) and No Guarding due to palpation present (GI) : General: Yes deferred Skin: Wounds: wounds noted (see below ) Extrem: Right lower extremity: hip/thigh Details: normal to inspection, knee Details: normal to inspection; no tenderness and lower leg (Below-knee amputation.) Left lower extremity: hip/thigh Details: normal to inspection, knee Details: abnormal ROM ( range of motion deferred secondary to fracture), ankle (no calf tenderness) Details: normal to inspection, abnormal ROM Details: with range as follows ( Minimal range of motion ankle and hindfoot secondary to fusion); no pain with active ROM and no pain with passive ROM and other ( good capillary refill in toes, 2+ DP pulse, light touch sensation intact); no tenderness ( lateral malleolus, anterior ankle and medial ankle) and no swelling ( moderate anterior ankle, moderate lateral ankle) and foot Details: normal capillary refill, toes with normal ROM, vascular exam Details: dorsalis pedis pulse present and normal capillary refill, tendon exam active flexion normal and active extension normal and motor-sensory exam two point discrimination normal and light-touch normal; no tenderness Other: Right BKA wound VAC in place. Functioning well. Right knee without pain/swelling. No purulence or signs of infection. Wound VAC dressing changed. Good granulation tissue noted. No purulence. Slight dehiscence of the muscle from the midportion of the wound compared to previous. Overall dimensions improved. Objective Data Vital Signs Vital Signs: Vital Signs - 24 hr 10/31/20 16:00 10/31/20 18:00 10/31/20 20:00 Temperature 98.0 F Pulse Rate 73 69 74 Respiratory Rate 18 18 Blood Pressure 128/72 134/52 L Pulse Oximetry 98 97 10/31/20 20:49 10/31/20 20:50 10/31/20 20:56 Temperature Pulse Rate 70 85 70 Respiratory Rate 20 Blood Pressure Pulse Oximetry 95 10/31/20 21:52 10/31/20 22:00 10/31/20 23:58 Temperature 97.8 F Pulse Rate 74 76 62 Respiratory Rate 22 H Blood Pressure 119/40 L Pulse Oximetry 94 11/01/20 00:00 11/01/20 02:00 11/01/20 02:32 Temperature Pulse Rate 58 L 65 62 Respiratory Rate 20 Blood Pressure Pulse Oximetry 11/01/20 02:40 11/01/20 04:00 11/01/20 06:00 Temperature 98.1 F Pulse Rate 62 68 70 Respiratory Rate 20 18 Blood Pressure 136/60 Pulse Oximetry 93 11/01/20 08:00 11/01/20 08:12 11/01/20 08:20 Temperature Pulse Rate 72 74 72 Respiratory Rate 18 18 Blood Pressure Pulse Oximetry 92 11/01/20 08:30 11/01/20 09:08 11/01/20 10:00 Temperature 97.8 F Pulse Rate 71 75 70 Respiratory Rate 22 H Blood Pressure 153/60 H Pulse Oximetry 100 11/01/20 12:00 11/01/20 13:08
[2020-11-01 17:48] LABS: Glucose Point of Care 109 mg/dl (65-105)
[2020-11-01 20:19] LABS: Glucose Point of Care 238 mg/dl (65-105)
[2020-11-01] MEDS: ATORVASTATIN 40 MG TABLET PO (21:41)
[2020-11-02] VITALS (23 sets, daily range): BP systolic 139–162; BP diastolic 53–72; PULSE 63–87; RESP 17–22; TEMP 36.4–37.1; O2SAT 94–98
[2020-11-02] MEDS: IPRATROPIUM BR 0.02% INH SOLN 0.5 MG/2.5 ML VIAL INHALATION ×4 (01:45→20:30)
[2020-11-02] MEDS: ALBUTEROL SULFATE NEB 2.5 MG/0.5 ML INH INHALATION ×4 (01:45→20:30)
[2020-11-02] MEDS: AMPICILLIN SULB 1.5 GM/NS 50ML 1.5 GM/50 ML VIAL IVPB ×2 (04:03→19:41)
[2020-11-02 05:21] LABS: Basophils Absolute Auto 0.1 K/mm3 (0.0-0.1); Basophils Percent Auto 1.2 % (0.2-1.2); Eosinophils Absolute Auto 0.1 K/mm3 (0-0.3); Eosinophils Percent Auto 1.6 % (0-4.4); Hematocrit 29.3 % (37.0-47.0); Hemoglobin 8.8 g/dL (12.0-15.0); Immature Granulocyte Absolute 0.07 K/mm3 (0.00-0.031); Immature Granulocyte Percent A 1.4 % (0-0.5); Lymphocytes Absolute Auto 0.72 K/mm3 (0.9-3.2); Lymphocytes Percent Auto 14.1 % (18.3-44.2); Mean Corpuscular Hemoglobin 28.8 pg (26-34); Mean Corpuscular Volume 95.8 fl (80-100); Mean Platelet Volume 10.5 fl (7.4-10.4); Monocytes Absolute Auto 0.6 K/mm3 (0.1-0.6); Monocytes Percent Auto 12.2 % (2.6-8.5); Neutrophils Absolute Auto 3.5 K/mm3 (1.3-6.7); Neutrophils Percent Auto 69.5 % (45.5-73.1); Platelet Count Result 201 k/mm3 (150-375); Red Blood Count 3.06 M/mm3 (4.2-5.4); Red Cell Distribution Width 17.3 % (11.5-14.5); White Blood Count 5.1 K/mm3 (4.5-10.0)
[2020-11-02 05:52] LABS: Alanine Aminotransferase 9 U/L (4-35); Albumin Level 1.9 g/dL (3.5-5.1); Alkaline Phosphatase 59 U/L (38-126); Anion Gap 8 mmol/L (8-16); Aspartate Amino Transferase 15 U/L (14-36); Bilirubin,Total 0.3 mg/dL (0.2-1.3); Blood Urea Nitrogen 55 mg/dL (7-17); Calcium 7.6 mg/dL (8.4-10.2); Carbon Dioxide 21 mmol/L (22-30); Chloride 105 mmol/L (98-107); Estimated CRCL calculation 17 ml/min; Estimated Glomerular Filt Rate 11; Glucose 111 mg/dL (65-110); Magnesium 1.9 mg/dL (1.6-2.3); Phosphorus 5.3 mg/dL (2.5-4.5); Potassium 4.4 mmol/L (3.4-5.0); Sodium 134 mmol/L (137-145)
[2020-11-02] MEDS: LEVOTHYROXINE SODIUM 25 MCG TABLET PO (06:55)
--- NOTE | 2020-11-02 07:45 | PM.IMPN ---
Progress Note: A&P Assessment and Plan (1) Acute on chronic respiratory failure with hypoxia and hypercapnia: Code(s): J96.21 - Acute and chronic respiratory failure with hypoxia; J96.22 - Acute and chronic respiratory failure with hypercapnia Status: Resolved Assessment and Plan: Resolved; presented with respiratory acidosis and increased lethargy requiring intubation. Patient extubated and was reintubated on likely secondary to an episode of aspiration pneumonitis/pneumonia versus hypercarbia. she was extubated 10/30 saturating well on nasal cannula incentive spirometry continuing Unasyn for 7 days (2) Infection of right below knee amputation: Code(s): T87.43 - Infection of amputation stump, right lower extremity Status: Acute Assessment and Plan: S/p debridement and wound vac placement on 10/20; Ortho and ID following. wound covered vac looks to be improving continue orthopedic follow-up. Wound VAC dressing change per orthopedics Abx She is currently on Unasyn for aspiration pneumonitis /pneumonia. She was on cefepime, Flagyl, vancomycin and p.o. vancomycin earlier which has been stopped after she had received it for 11-12 days while p.o. vancomycin for 14 days. Infectious disease service is following. (3) UTI (urinary tract infection): Qualifiers: Hematuria presence: without hematuria Urinary tract infection type: acute cystitis Qualified Code(s): N30.00 - Acute cystitis without hematuria Code(s): N39.0 - Urinary tract infection, site not specified Status: Acute Assessment and Plan: Resolved. She was on cefepime, Flagyl and vancomycin earlier but now currently on Unasyn. she had received all these antibiotic for 11-12 days. She has finished a course of p.o. vancomycin for C diff colitis. Her blood culture grew coagulase negative Staphylococcus likely contaminant. repeat blood cultures are pending Urine culture grew E coli and Pseudomonas aeruginosa. Pseudomonas aeruginosa was pretty pansensitive Including cefepime. E coli was sensitive to cefepime as well. ID following (4) Septic shock: Code(s): A41.9 - Sepsis, unspecified organism; R65.21 - Severe sepsis with septic shock Status: Acute Assessment and Plan: Resolved. Off pressors since 10/14. (5) C. difficile colitis: Code(s): A04.72 - Enterocolitis due to Clostridium difficile, not specified as recurrent Status: Acute Assessment and Plan: Completed the course of p.o. vancomycin for 14 days. (6) Acute renal failure superimposed on stage 4 chronic kidney disease: Qualifiers: Acute renal failure type: unspecified Qualified Code(s): N17.9 - Acute kidney failure, unspecified; N18.4 - Chronic kidney disease, stage 4 (severe) Code(s): N17.9 - Acute kidney failure, unspecified; N18.4 - Chronic kidney disease, stage 4 (severe) Status: Acute Assessment and Plan: Cr 4.0 Baseline Cr typically ~3.00 with variability. Nephrology following; appreciate rec. Renal US as noted above. cont Nephrology rec Monitor fluid status Strict intake output record and daily weight. Continue to monitor renal parameters and electrolytes. (7) Normal anion gap metabolic acidosis: Code(s): E87.2 - Acidosis Status: Resolved Assessment and Plan: secondary renal disease p.o. bicarb nephro following (8) Hypertension: Qualifiers: Hypertension type: essential hypertension Qualified Code(s): I10 - Essential (primary) hypertension Code(s): I10 - Essential (primary) hypertension Status: Chronic Assessment and Plan: blood pressure elevated. patient is currently on amlodipine, clonidine, hydralazine and metoprolol. increase clonidine to t.i.d. and resume Cardura still elevated -> dc amlodipine add nifedipine continue Hydralazine on as needed basis a blood press
[2020-11-02 07:49] LABS: Glucose Point of Care 107 mg/dl (65-105)
--- NOTE | 2020-11-02 09:18 | PM.PNORT ---
Progress Note: A&P Assessment and Plan (1) Delayed surgical wound healing of [id number] amputation stump: Code(s): T87.89 - Other complications of amputation stump; T81.89XA - Other complications of procedures, not elsewhere classified, initial encounter Status: Acute Assessment and Plan: Wound VAC in place. Serosanguineous drainage in place. Plan for wound VAC dressing change on 11/03. Up to chair as tolerated. Okay to remove hobbs catheter when medically cleared. Subjective Subjective Date/Time Seen: 11/02/20 09:18 Post Op day: 14 Interval history: POD #14: Right below-knee amputation No new complaints. Concerned about hobbs catheter removal. Dressing still intact. Review of Systems Review of Systems: All systems reviewed & are unremarkable except as noted in HPI and below Exam Const: General: cooperative, comfortable, no acute distress and awake Nutritional Appearance: obese HENMT: Head: normal to inspection, normocephalic and atraumatic Eyes: Conjunctivae: conjunctivae normal Sclera: sclerae normal Neck: Neck: supple and nontender Resp: Effort & Inspection: normal respiratory effort GI: Inspection: non-distended GI Palp: Yes Soft to palpation, No Tenderness to palpation present (GI) and No Guarding due to palpation present (GI) : General: Yes deferred Skin: Wounds: wounds noted (see below ) Extrem: Right lower extremity: hip/thigh Details: normal to inspection, knee Details: normal to inspection; no tenderness and lower leg (Below-knee amputation.) Left lower extremity: hip/thigh Details: normal to inspection, knee Details: abnormal ROM ( range of motion deferred secondary to fracture), ankle (no calf tenderness) Details: normal to inspection, abnormal ROM Details: with range as follows ( Minimal range of motion ankle and hindfoot secondary to fusion); no pain with active ROM and no pain with passive ROM and other ( good capillary refill in toes, 2+ DP pulse, light touch sensation intact); no tenderness ( lateral malleolus, anterior ankle and medial ankle) and no swelling ( moderate anterior ankle, moderate lateral ankle) and foot Details: normal capillary refill, toes with normal ROM, vascular exam Details: dorsalis pedis pulse present and normal capillary refill, tendon exam active flexion normal and active extension normal and motor-sensory exam two point discrimination normal and light-touch normal; no tenderness Other: Right BKA wound VAC in place. Serosanguineous drainage in chamber. Functioning well. Right knee without pain/swelling. No purulence or signs of infection. Psych: Affect: normal affect Objective Data Vital Signs Vital Signs: Vital Signs - 24 hr 11/01/20 10:00 11/01/20 12:00 11/01/20 13:08 Temperature 37.1 C Pulse Rate 70 69 77 Respiratory Rate 22 H 18 Blood Pressure 152/59 H Pulse Oximetry 95 11/01/20 13:17 11/01/20 14:00 11/01/20 16:00 Temperature 36.6 C Pulse Rate 72 67 64 Respiratory Rate 18 24 H Blood Pressure 137/59 L Pulse Oximetry 11/01/20 18:00 11/01/20 20:00 11/01/20 20:04 Temperature 37.0 C Pulse Rate 78 82 74 Respiratory Rate 19 20 Blood Pressure 135/59 L Pulse Oximetry 94 11/01/20 20:05 11/01/20 20:19 11/01/20 21:41 Temperature Pulse Rate 75 70 Respiratory Rate 20 Blood Pressure Pulse Oximetry 95 11/01/20 22:00 11/02/20 00:00 11/02/20 01:46 Temperature 36.4 C L Pulse Rate 78 70 74 Respiratory Rate 22 H 20 Blood Pressure 144/53 H Pulse Oximetry 94 11/02/20 02:00 11/02/20 04:00 11/02/20 06:00 Temperature 36.6 C Pulse Rate 63 85 65 Respiratory Rate 17 Blood Pressure 162/72 H Pulse Oximetry 97 11/02/20 07:51 11/02/20 08:20 11/02/20 08:30 Temperature 36.7 C Pulse Rate 85 77 75 Respiratory Rate 17 18 18 Blood Pressure 150/62 H Pulse Oximetry 97 94 Intake/Output Intake/Output: Intake & Output 10/30/20 10/31/20 11/01/20 11/02/20 23:59 23:59
--- NOTE | 2020-11-02 09:52 | PCNEURO ---
Patient reports experiencing tremors in her left hand a few times a week for the past approximately 6 months. Tremors are not associated with pain. Patient also reports tingling in left arm (separate from the left hand tremors) a few times a week for the past approximately 6 months. Patient reports daily pounding headaches on the left side for the past 2 years. The headaches have diminished in the past few months.
[2020-11-02] MEDS: FERROUS SULFATE 324 MG TABLET PO (10:39)
[2020-11-02] MEDS: HEPARIN SODIUM 5,000 UNITS/ML VIAL 5000 UNITS SUB-Q ×2 (10:39→20:23)
[2020-11-02] MEDS: DOXAZOSIN MESYLATE 1 MG TABLET PO (10:39)
[2020-11-02] MEDS: SODIUM BICARBONATE TAB 650 MG TABLET PO (10:39)
[2020-11-02] MEDS: cloNIDine HCL 0.1 MG TABLET PO ×3 (10:40→17:35)
[2020-11-02] MEDS: hydrALAZINE HCL 50 MG TABLET 100 MG PO ×3 (10:40→17:35)
[2020-11-02] MEDS: DOCUSATE SODIUM 100 MG CAPSULE PO ×2 (10:40→17:35)
[2020-11-02] MEDS: METOPROLOL TARTRATE 50 MG TAB 100 MG PO ×2 (10:40→20:23)
[2020-11-02] MEDS: ASPIRIN 81 MG ENTERIC TABLET PO (10:41)
[2020-11-02] MEDS: PANTOPRAZOLE SODIUM IV 40 MG VIAL IV PUSH (10:42)
[2020-11-02] MEDS: NIFEdipine 30 MG TAB.ER.24 PO (10:42)
[2020-11-02] MEDS: TOLNAFTATE 1% POWDER 45 GM BTL 1 APPLIC TOPICAL (10:43)
--- NOTE | 2020-11-02 10:58 | P.PNNP_ITS ---
Progress Note: A&P Assessment and Plan (1) Chronic kidney disease, stage 4 (severe): Code(s): N18.4 - Chronic kidney disease, stage 4 (severe) Status: Chronic Assessment and Plan: * creatinine is a little higher than usual. It sofía from 3-3.6 over the last couple of days. * follows with Dr. Adrian Pena for CKD management * most likely due to diabetes, hypertension, and vascular disease * possible element of SARAH * Ultrasound is unremarkable * Not on diuretics. * No sign of infection such as fever or elevated white count. * No rash or eosinophilia to suggest an allergic reaction. She was on vanco mycin and cefepime before and recently has been on Unasyn. Possibly she could switch to a non Penicillin/cephalosporins for an antibiotic? * she does not appear dehydrated. Chest x-ray shows some pleural effusions. * Consider 3rd spacing and pre renal from the low albumin? * urine electrolytes show a sodium of only 17 but the FENA is non pre renal * her creatinine is worse at 4.0. * will try albumin. (2) Metabolic acidosis: Code(s): E87.2 - Acidosis Status: Acute Assessment and Plan: * improving at this time * CO2 is slowly improved at 21 (3) Septic shock: Code(s): A41.9 - Sepsis, unspecified organism; R65.21 - Severe sepsis with septic shock Status: Acute Assessment and Plan: * resolved (4) Hypertension: Qualifiers: Hypertension type: essential hypertension Qualified Code(s): I10 - Essential (primary) hypertension Code(s): I10 - Essential (primary) hypertension Status: Chronic Assessment and Plan: * blood pressure under good control (5) Anemia: Code(s): D64.9 - Anemia, unspecified Status: Chronic Assessment and Plan: * due to underlying CKD and acute illness * on Epogen * hemoglobin is in the 8s (6) Type 2 diabetes mellitus: Qualifiers: Diabetes mellitus intermediate designer insulin use: without intermediate designer use Diabetes mellitus complication status: with kidney complications Diabetes mellitus complication detail: with chronic kidney disease Chronic kidney disease stage: stage 4 (severe) Qualified Code(s): E11.22 - Type 2 diabetes mellitus with diabetic chronic kidney disease; N18.4 - Chronic kidney disease, stage 4 (severe) Code(s): E11.9 - Type 2 diabetes mellitus without complications Status: Acute Assessment and Plan: * follow accuchecks * on SSI Subjective Date/time seen: 11/02/20 10:58 Interval history: patient is awake feels okay. No shortness of breath. mild swelling is about the same Exam Narrative: General: WD/WN female in NAD Heart: normal S1 and S2; no rub Lungs: clear to auscultation Abdomen: soft, nontender, nondistended, positive bowel sounds Extremities: no cyanosis or clubbing; 1+ edema; s/p right BKA Skin: wound vac in place On the right stump Objective Data Vital Signs Vital Signs: Vital Signs - 24 hr 11/01/20 12:00 11/01/20 13:08 11/01/20 13:17 Temperature 37.1 C Pulse Rate 69 77 72 Respiratory Rate 22 H 18 18 Blood Pressure 152/59 H Pulse Oximetry 95 11/01/20 14:00 11/01/20 16:00 11/01/20 18:00 Temperature 36.6 C Pulse Rate 67 64 78 Respiratory Rate 24 H Blood Pressure 137/59 L Pulse Oximetry
--- NOTE | 2020-11-02 10:58 | PM.PNNEP ---
Progress Note: A&P Assessment and Plan (1) Chronic kidney disease, stage 4 (severe): Code(s): N18.4 - Chronic kidney disease, stage 4 (severe) Status: Chronic Assessment and Plan: creatinine is a little higher than usual. It sofía from 3-3.6 over the last couple of days. follows with Dr. Adrian Pena for CKD management most likely due to diabetes, hypertension, and vascular disease possible element of SARAH Ultrasound is unremarkable Not on diuretics. No sign of infection such as fever or elevated white count. No rash or eosinophilia to suggest an allergic reaction. She was on vancomycin and cefepime before and recently has been on Unasyn. Possibly she could switch to a non Penicillin/cephalosporins for an antibiotic? she does not appear dehydrated. Chest x-ray shows some pleural effusions. Consider 3rd spacing and pre renal from the low albumin? urine electrolytes show a sodium of only 17 but the FENA is non pre renal her creatinine is worse at 4.0. will try albumin. (2) Metabolic acidosis: Code(s): E87.2 - Acidosis Status: Acute Assessment and Plan: improving at this time CO2 is slowly improved at 21 (3) Septic shock: Code(s): A41.9 - Sepsis, unspecified organism; R65.21 - Severe sepsis with septic shock Status: Acute Assessment and Plan: resolved (4) Hypertension: Qualifiers: Hypertension type: essential hypertension Qualified Code(s): I10 - Essential (primary) hypertension Code(s): I10 - Essential (primary) hypertension Status: Chronic Assessment and Plan: blood pressure under good control (5) Anemia: Code(s): D64.9 - Anemia, unspecified Status: Chronic Assessment and Plan: due to underlying CKD and acute illness on Epogen hemoglobin is in the 8s (6) Type 2 diabetes mellitus: Qualifiers: Diabetes mellitus longitudinal float operator insulin use: without longitudinal float operator use Diabetes mellitus complication status: with kidney complications Diabetes mellitus complication detail: with chronic kidney disease Chronic kidney disease stage: stage 4 (severe) Qualified Code(s): E11.22 - Type 2 diabetes mellitus with diabetic chronic kidney disease; N18.4 - Chronic kidney disease, stage 4 (severe) Code(s): E11.9 - Type 2 diabetes mellitus without complications Status: Acute Assessment and Plan: follow accuchecks on SSI Subjective Date/time seen: 11/02/20 10:58 Interval history: patient is awake feels okay. No shortness of breath. mild swelling is about the same Exam Narrative: General: WD/WN female in NAD Heart: normal S1 and S2; no rub Lungs: clear to auscultation Abdomen: soft, nontender, nondistended, positive bowel sounds Extremities: no cyanosis or clubbing; 1+ edema; s/p right BKA Skin: wound vac in place On the right stump Objective Data Vital Signs Vital Signs: Vital Signs - 24 hr 11/01/20 12:00 11/01/20 13:08 11/01/20 13:17 Temperature 37.1 C Pulse Rate 69 77 72 Respiratory Rate 22 H 18 18 Blood Pressure 152/59 H Pulse Oximetry 95 11/01/20 14:00 11/01/20 16:00 11/01/20 18:00 Temperature 36.6 C Pulse Rate 67 64 78 Respiratory Rate 24 H Blood Pressure 137/59 L Pulse Oximetry 11/01/20 20:00 11/01/20 20:04 11/01/20 20:05 Temperature 37.0 C Pulse Rate 82 74 Respiratory Rate 19 20 Blood Pressure 135/59 L Pulse Oximetry 94 95 11/01/20 20:19 11/01/20 21:41 11/01/20 22:00 Temperature Pulse Rate 75 70 78 Respiratory Rate 20 Blood Pressure Pulse Oximetry 11/02/20 00:00 11/02/20 01:46 11/02/20 02:00 Temperature 36.4 C L Pulse Rate 70 74 63 Respiratory Rate 22 H 20 Blood Pressure 144/53 H Pulse Oximetry 94 11/02/20 04:00 11/02/20 06:00 11/02/20 07:51 Temperature 36.6 C 36.7 C Pulse Rate 85 65 85 Respiratory Rate 17 17 Blood Pressure 162/7
[2020-11-02 11:46] LABS: Glucose Point of Care 111 mg/dl (65-105)
[2020-11-02] MEDS: ALBUMIN HUMAN 25% 25 GM/100 ML 100 ML IVPB ×2 (12:54→17:34)
[2020-11-02 16:34] LABS: Glucose Point of Care 135 mg/dl (65-105)
--- NOTE | 2020-11-02 17:18 | P.PNIM_ITS ---
Progress Note: A&P Assessment and Plan (1) Acute on chronic respiratory failure with hypoxia and hypercapnia: Code(s): J96.21 - Acute and chronic respiratory failure with hypoxia; J96.22 - Acute and chronic respiratory failure with hypercapnia Status: Resolved Assessment and Plan: Resolved; presented with respiratory acidosis and increased lethargy requiring intubation. Patient extubated and was reintubated on likely secondary to an episode of aspiration pneumonitis/pneumonia versus hypercarbia. she was extubated 10/30 current saturating well on nasal cannula incentive spirometry continuing Unasyn for 7 days until 11/05/20 (2) Infection of right below knee amputation: Code(s): T87.43 - Infection of amputation stump, right lower extremity Status: Acute Assessment and Plan: S/p debridement and wound vac placement on 10/20; Ortho and ID following. wound covered vac looks to be improving * continue orthopedic follow-up. Wound VAC dressing change per orthopedics * Abx She is currently on Unasyn for aspiration pneumonitis /pneumonia. She was on cefepime, Flagyl, vancomycin and p.o. vancomycin earlier which has been stopped after she had received it for 11-12 days while p.o. vancomycin for 14 days. * Infectious disease service is following. (3) UTI (urinary tract infection): Qualifiers: Hematuria presence: without hematuria Urinary tract infection type: acute cystitis Qualified Code(s): N30.00 - Acute cystitis without hematuria Code(s): N39.0 - Urinary tract infection, site not specified Status: Acute Assessment and Plan: Resolved. She was on cefepime, Flagyl and vancomycin earlier but now currently on Unasyn. she had received all these antibiotic for 11-12 days. She has finished a course of p.o. vancomycin for C diff colitis. Her blood culture grew coagulase negative Staphylococcus likely contaminant. repeat blood cultures are pending Urine culture grew E coli and Pseudomonas aeruginosa. Pseudomonas aeruginosa was pretty pansensitive Including cefepime. E coli was sensitive to cefepime as well. ID following (4) Septic shock: Code(s): A41.9 - Sepsis, unspecified organism; R65.21 - Severe sepsis with septic shock Status: Acute Assessment and Plan: Resolved. Off pressors since 10/14. (5) C. difficile colitis: Code(s): A04.72 - Enterocolitis due to Clostridium difficile, not specified as recurrent Status: Acute Assessment and Plan: Completed the course of p.o. vancomycin for 14 days. (6) Acute renal failure superimposed on stage 4 chronic kidney disease: Qualifiers: Acute renal failure type: unspecified Qualified Code(s): N17.9 - Acute kidney failure, unspecified; N18.4 - Chronic kidney disease, stage 4 (severe) Code(s): N17.9 - Acute kidney failure, unspecified; N18.4 - Chronic kidney disease, stage 4 (severe) Status: Acute Assessment and Plan: Cr 4.0 Baseline Cr typically ~3.00 with variability. Nephrology following; appreciate rec. Renal US as noted above. * cont Nephrology rec * Monitor fluid status * Strict intake output record and daily weight. Continue to monitor renal parameters and electrolytes. (7) Normal anion gap metabolic acidosis: Code(s): E87.2 - Acidosis Status: Resolved Assessment and Plan: secondary renal disease p.o. bicarb nephro following (8) Hypertension: Qualifiers: Hypertension type: essential hypertension Qualified Code(s): I10 - Enrique
[2020-11-02] MEDS: FUROSEMIDE INJ 40 MG/4 ML VIAL IV PUSH (17:35)
[2020-11-02] MEDS: ATORVASTATIN 40 MG TABLET PO (20:23)
[2020-11-02 20:43] LABS: Glucose Point of Care 192 mg/dl (65-105)
[2020-11-03] VITALS (23 sets, daily range): BP systolic 123–162; BP diastolic 55–66; PULSE 63–86; RESP 18–26; TEMP 35.9–36.8; O2SAT 87–95; BMI 10.0
[2020-11-03] MEDS: ALBUMIN HUMAN 25% 25 GM/100 ML 100 ML IVPB ×5 (01:41→23:36)
[2020-11-03] MEDS: ALBUTEROL SULFATE NEB 2.5 MG/0.5 ML INH INHALATION ×4 (02:35→21:23)
[2020-11-03] MEDS: IPRATROPIUM BR 0.02% INH SOLN 0.5 MG/2.5 ML VIAL INHALATION ×4 (02:35→21:23)
[2020-11-03 05:52] LABS: Hematocrit 30.7 % (37.0-47.0); Hemoglobin 8.9 g/dL (12.0-15.0); Mean Corpuscular Hemoglobin 28.3 pg (26-34); Mean Corpuscular Volume 97.5 fl (80-100); Mean Platelet Volume 10.7 fl (7.4-10.4); Platelet Count Result 203 k/mm3 (150-375); Red Blood Count 3.15 M/mm3 (4.2-5.4); Red Cell Distribution Width 17.7 % (11.5-14.5); White Blood Count 5.4 K/mm3 (4.5-10.0)
[2020-11-03 06:12] LABS: Alanine Aminotransferase 8 U/L (4-35); Albumin Level 2.8 g/dL (3.5-5.1); Alkaline Phosphatase 58 U/L (38-126); Anion Gap 10 mmol/L (8-16); Aspartate Amino Transferase 15 U/L (14-36); Bilirubin,Total 0.3 mg/dL (0.2-1.3); Blood Urea Nitrogen 59 mg/dL (7-17); Calcium 8.2 mg/dL (8.4-10.2); Carbon Dioxide 21 mmol/L (22-30); Chloride 104 mmol/L (98-107); Estimated CRCL calculation 17 ml/min; Estimated Glomerular Filt Rate 11; Glucose 118 mg/dL (65-110); Magnesium 1.9 mg/dL (1.6-2.3); Phosphorus 5.2 mg/dL (2.5-4.5); Potassium 4.1 mmol/L (3.4-5.0); Sodium 135 mmol/L (137-145)
[2020-11-03] MEDS: LEVOTHYROXINE SODIUM 25 MCG TABLET PO (06:12)
[2020-11-03] MEDS: AMPICILLIN SULB 1.5 GM/NS 50ML 1.5 GM/50 ML VIAL IVPB ×2 (08:26→17:55)
[2020-11-03] MEDS: cloNIDine HCL 0.1 MG TABLET PO ×3 (08:45→17:56)
[2020-11-03] MEDS: hydrALAZINE HCL 50 MG TABLET 100 MG PO ×3 (08:45→17:57)
[2020-11-03] MEDS: ASPIRIN 81 MG ENTERIC TABLET PO (08:45)
[2020-11-03] MEDS: DOCUSATE SODIUM 100 MG CAPSULE PO (08:45)
[2020-11-03] MEDS: NIFEdipine 30 MG TAB.ER.24 PO (08:46)
[2020-11-03] MEDS: DOXAZOSIN MESYLATE 1 MG TABLET PO (08:46)
[2020-11-03] MEDS: METOPROLOL TARTRATE 50 MG TAB 100 MG PO ×2 (08:46→20:50)
[2020-11-03] MEDS: HEPARIN SODIUM 5,000 UNITS/ML VIAL 5000 UNITS SUB-Q ×2 (08:46→20:51)
[2020-11-03] MEDS: FUROSEMIDE INJ 40 MG/4 ML VIAL IV PUSH ×2 (08:46→17:56)
[2020-11-03] MEDS: PANTOPRAZOLE SODIUM IV 40 MG VIAL IV PUSH (08:46)
[2020-11-03 08:58] LABS: Glucose Point of Care 124 mg/dl (65-105)
--- NOTE | 2020-11-03 09:09 | PM.PNORT ---
Progress Note: A&P Assessment and Plan (1) Delayed surgical wound healing of [id number] amputation stump: Code(s): T87.89 - Other complications of amputation stump; T81.89XA - Other complications of procedures, not elsewhere classified, initial encounter Status: Acute Assessment and Plan: Wound VAC in place. Serosanguineous drainage in place. Wound VAC dressing change this a.m.. Wound appears stable. Two sutures removed. Up to chair as tolerated. in courage movement and sitting up, transfers to improve respiration. Incentive spirometry Q 1 hour. Continue with nutritional supplement. Patient on planned course of ampicillin until November 05. Plan wound VAC dressing change November 06. Subjective Subjective Date/Time Seen: 11/03/20 09:09 Post Op day: 15 Principal diagnosis: RT BKA with wound dehiscence Interval history: Wound VAC dressing in place. Right below-knee amputation with wound dehiscence. Patient currently on 1 week course of ampicillin to be completed November 05. Patient up to chair yesterday. Urinary catheter removed. No other complaints period Exam Const: General: cooperative, comfortable, no acute distress and awake Nutritional Appearance: obese HENMT: Head: normal to inspection, normocephalic and atraumatic Eyes: Conjunctivae: conjunctivae normal Sclera: sclerae normal Neck: Neck: supple and nontender Resp: Effort & Inspection: normal respiratory effort GI: Inspection: non-distended GI Palp: Yes Soft to palpation, No Tenderness to palpation present (GI) and No Guarding due to palpation present (GI) : General: Yes deferred Skin: Wounds: wounds noted (see below ) Extrem: Right lower extremity: hip/thigh Details: normal to inspection, knee Details: normal to inspection; no tenderness and lower leg (Below-knee amputation.) Left lower extremity: hip/thigh Details: normal to inspection, knee Details: abnormal ROM ( range of motion deferred secondary to fracture), ankle (no calf tenderness) Details: normal to inspection, abnormal ROM Details: with range as follows ( Minimal range of motion ankle and hindfoot secondary to fusion); no pain with active ROM and no pain with passive ROM and other ( good capillary refill in toes, 2+ DP pulse, light touch sensation intact); no tenderness ( lateral malleolus, anterior ankle and medial ankle) and no swelling ( moderate anterior ankle, moderate lateral ankle) and foot Details: normal capillary refill, toes with normal ROM, vascular exam Details: dorsalis pedis pulse present and normal capillary refill, tendon exam active flexion normal and active extension normal and motor-sensory exam two point discrimination normal and light-touch normal; no tenderness Other: Right BKA wound VAC in place. Serosanguineous drainage in chamber. Functioning well. Right knee without pain/swelling. No purulence or signs of infection. wound VAC dressing changed. Approximately 17 cm by 7 cm wound with slight improvement in dimensions. Two of the 3 sutures removed. Psych: Affect: normal affect Objective Data Vital Signs Vital Signs: Vital Signs - 24 hr 11/02/20 10:00 11/02/20 10:40 11/02/20 12:00 Temperature 98.8 F Pulse Rate 69 76 64 Respiratory Rate 17 Blood Pressure 142/60 H Pulse Oximetry 98 11/02/20 14:00 11/02/20 15:16 11/02/20 15:26 Temperature Pulse Rate 67 74 72 Respiratory Rate 20 20 Blood Pressure Pulse Oximetry 11/02/20 16:00 11/02/20 18:00 11/02/20 19:54 Temperature 98.4 F 97.5 F L Pulse Rate 77 87 86 Respiratory Rate 19 20 Blood Pressure 139/57 L 145/56 H Pulse Oximetry 96 97 11/02/20 20:00 11/02/20 20:23 11/02/20 20:30 Temperature Pulse Rate 86 81 83 Respiratory Rate 20 20 Blood Pressure Pulse Oximetry 97 94 11/02/20 20:40 11/02/20 22:00 11/03/20 00:00 Temperature 96.7 F L Pulse Rate 82 68 75 Respiratory Rate 20 22 H Blood Pressure 138/55 L Pulse Oximetry 94 93
[2020-11-03 12:12] LABS: Creatine Kinase < 20 U/L (30-135)
[2020-11-03 12:20] LABS: Complement C3 71 mg/dL (88-165)
--- NOTE | 2020-11-03 12:24 | P.PNNP_ITS ---
Progress Note: A&P Assessment and Plan (1) Chronic kidney disease, stage 4 (severe): Code(s): N18.4 - Chronic kidney disease, stage 4 (severe) Status: Chronic Assessment and Plan: * creatinine is a little higher than usual. It sofía from 3-3.6 over the last couple of days. * follows with Dr. Adrian Pena for CKD management * most likely due to diabetes, hypertension, and vascular disease * the patient has acute kidney injury. * Over the last few days the creatinine has risen from 3-4. * Repeat Ultrasound is unremarkable * Not on diuretics. * No sign of infection such as fever or elevated white count. * No rash or eosinophilia to suggest an allergic reaction. * she does not appear dehydrated. Chest x-ray shows some pleural effusions and she has some swelling.. * She received albumin and diuretics last night. Urine output not very good. * her creatinine is About the same. * Will give another day of albumin and loop diuretics and reassess tomorrow. (2) Metabolic acidosis: Code(s): E87.2 - Acidosis Status: Acute Assessment and Plan: * improving at this time * CO2 is About the same (3) Septic shock: Code(s): A41.9 - Sepsis, unspecified organism; R65.21 - Severe sepsis with septic shock Status: Acute Assessment and Plan: * resolved (4) Hypertension: Qualifiers: Hypertension type: essential hypertension Qualified Code(s): I10 - Essential (primary) hypertension Code(s): I10 - Essential (primary) hypertension Status: Chronic Assessment and Plan: * blood pressure under good control (5) Anemia: Code(s): D64.9 - Anemia, unspecified Status: Chronic Assessment and Plan: * due to underlying CKD and acute illness * on Epogen * hemoglobin is stable in the 8s (6) Type 2 diabetes mellitus: Qualifiers: Diabetes mellitus keno terminal operator insulin use: without keno terminal operator use Diabetes mellitus complication status: with kidney complications Diabetes mellitus complication detail: with chronic kidney disease Chronic kidney disease stage: stage 4 (severe) Qualified Code(s): E11.22 - Type 2 diabetes mellitus with diabetic chronic kidney disease; N18.4 - Chronic kidney disease, stage 4 (severe) Code(s): E11.9 - Type 2 diabetes mellitus without complications Status: Acute Assessment and Plan: * follow accuchecks * on SSI Subjective Date/time seen: 11/03/20 12:24 Interval history: PATIENT IS ALERT. SHE IS FEELING OKAY SHE IS UP IN A CHAIR. SHE WAS SEEN BY DR. NIETO THIS MORNING AND THE WOUND LOOKS GOOD. PATIENT HAS NO FEVERS. CHILLS. NO RASH OR ITCHING. Exam Narrative: General: WD/WN female in NAD Heart: normal S1 and S2; no rub or gallop Lungs: clear Abdomen: soft, nontender, nondistended, positive bowel sounds Extremities: no cyanosis or clubbing; 1+ edema; s/p right BKA Skin: wound vac in place On the right stump Objective Data Vital Signs Vital Signs: Vital Signs - 24 hr 11/02/20 14:00 11/02/20 15:16 11/02/20 15:26 Temperature Pulse Rate 67 74 72 Respiratory Rate 20 20 Blood Pressure Pulse Oximetry 11/02/20 16:00 11/02/20 18:00 11/02/20 19:54 Temperature 36.9 C 36.4 C L Pulse Rate 77 87 86 Respiratory Rate 19 20 Blood Pressure
--- NOTE | 2020-11-03 12:24 | PM.PNNEP ---
Progress Note: A&P Assessment and Plan (1) Chronic kidney disease, stage 4 (severe): Code(s): N18.4 - Chronic kidney disease, stage 4 (severe) Status: Chronic Assessment and Plan: creatinine is a little higher than usual. It sofía from 3-3.6 over the last couple of days. follows with Dr. Adrian ePna for CKD management most likely due to diabetes, hypertension, and vascular disease the patient has acute kidney injury. Over the last few days the creatinine has risen from 3-4. Repeat Ultrasound is unremarkable Not on diuretics. No sign of infection such as fever or elevated white count. No rash or eosinophilia to suggest an allergic reaction. she does not appear dehydrated. Chest x-ray shows some pleural effusions and she has some swelling.. She received albumin and diuretics last night. Urine output not very good. her creatinine is About the same. Will give another day of albumin and loop diuretics and reassess tomorrow. (2) Metabolic acidosis: Code(s): E87.2 - Acidosis Status: Acute Assessment and Plan: improving at this time CO2 is About the same (3) Septic shock: Code(s): A41.9 - Sepsis, unspecified organism; R65.21 - Severe sepsis with septic shock Status: Acute Assessment and Plan: resolved (4) Hypertension: Qualifiers: Hypertension type: essential hypertension Qualified Code(s): I10 - Essential (primary) hypertension Code(s): I10 - Essential (primary) hypertension Status: Chronic Assessment and Plan: blood pressure under good control (5) Anemia: Code(s): D64.9 - Anemia, unspecified Status: Chronic Assessment and Plan: due to underlying CKD and acute illness on Epogen hemoglobin is stable in the 8s (6) Type 2 diabetes mellitus: Qualifiers: Diabetes mellitus filler leaf cutter long insulin use: without filler leaf cutter long use Diabetes mellitus complication status: with kidney complications Diabetes mellitus complication detail: with chronic kidney disease Chronic kidney disease stage: stage 4 (severe) Qualified Code(s): E11.22 - Type 2 diabetes mellitus with diabetic chronic kidney disease; N18.4 - Chronic kidney disease, stage 4 (severe) Code(s): E11.9 - Type 2 diabetes mellitus without complications Status: Acute Assessment and Plan: follow accuchecks on SSI Subjective Date/time seen: 11/03/20 12:24 Interval history: PATIENT IS ALERT. SHE IS FEELING OKAY SHE IS UP IN A CHAIR. SHE WAS SEEN BY DR. NIETO THIS MORNING AND THE WOUND LOOKS GOOD. PATIENT HAS NO FEVERS. CHILLS. NO RASH OR ITCHING. Exam Narrative: General: WD/WN female in NAD Heart: normal S1 and S2; no rub or gallop Lungs: clear Abdomen: soft, nontender, nondistended, positive bowel sounds Extremities: no cyanosis or clubbing; 1+ edema; s/p right BKA Skin: wound vac in place On the right stump Objective Data Vital Signs Vital Signs: Vital Signs - 24 hr 11/02/20 14:00 11/02/20 15:16 11/02/20 15:26 Temperature Pulse Rate 67 74 72 Respiratory Rate 20 20 Blood Pressure Pulse Oximetry 11/02/20 16:00 11/02/20 18:00 11/02/20 19:54 Temperature 36.9 C 36.4 C L Pulse Rate 77 87 86 Respiratory Rate 19 20 Blood Pressure 139/57 L 145/56 H Pulse Oximetry 96 97 11/02/20 20:00 11/02/20 20:23 11/02/20 20:30 Temperature Pulse Rate 86 81 83 Respiratory Rate 20 20 Blood Pressure Pulse Oximetry 97 94 11/02/20 20:40 11/02/20 22:00 11/03/20 00:00 Temperature 35.9 C L Pulse Rate 82 68 75 Respiratory Rate 20 22 H Blood Pressure 138/55 L Pulse Oximetry 94 93 11/03/20 02:00 11/03/20 02:35 11/03/20 02:45 Temperature Pulse Rate 76 76 74 Respiratory Rate 20 20 Blood Pressure Pulse Oximetry 11/03/20 04:00 11/03/20 06:00 11/03/20 08:00 Temperature 36.2 C L 36.4 C L Pulse Rate
[2020-11-03 12:25] LABS: Glucose Point of Care 130 mg/dl (65-105)
[2020-11-03 12:47] LABS: Erythrocyte Sedimentation Rate 69 mm/hr (0-20)
[2020-11-03] MEDS: EPOETIN ALFA-EPBX 10,000 UNITS/ML VIAL 10000 UNITS SUB-Q (12:51)
[2020-11-03] MEDS: FERROUS SULFATE 324 MG TABLET PO (12:52)
[2020-11-03] MEDS: TOLNAFTATE 1% POWDER 45 GM BTL 1 APPLIC TOPICAL ×2 (12:57→20:52)
--- NOTE | 2020-11-03 13:10 | PCDIET ---
Nutrition Follow-Up Complete: Nutrition Diagnosis: Inadequate oral intake related to oral intubation/mechanical ventilation as evidenced by NPO status. Nutrition Goal: Patient to meet estimated nutritional needs. Goal in progress. Patient consuming 75-100% of most meals on diabetic diet. MD changed supplement order to Ensure Surgery (330kcal, 18g protein). Patient has not yet received Ensure Surgery, but is receptive to trying it, as she does not care for Karl. If medically appropriate, may benefit from phosphorus binder. Last recorded weight is 128.9 kg which has decreased from last review. Bowel Motility: Last documented BM on 11/02/20 x 1. Labs Reviewed: Glu (118), BUN (59), Cr (4.1), Na (135), Alb (2.8), PO4 (5.2) Meds Noted: Albumin, Albuterol, Unasyn, Lipitor, Colace, Cardura, Retacrit, Ferrous Sulfate, Lasix, Apresoline, Atrovent, Synthroid, Lopressor, Procardia, Protonix Additional Notes: Abdomen macerated. Wound vac to right stump. Corrected calcium is normal. Will continue to monitor with same goal. Nutrition Monitoring and Evaluation: Follow up every 5 days.
--- NOTE | 2020-11-03 14:14 | PM.IMPN ---
Progress Note: A&P Assessment and Plan (1) Acute on chronic respiratory failure with hypoxia and hypercapnia: Code(s): J96.21 - Acute and chronic respiratory failure with hypoxia; J96.22 - Acute and chronic respiratory failure with hypercapnia Status: Resolved Assessment and Plan: Resolved; presented with respiratory acidosis and increased lethargy requiring intubation. Patient extubated and was reintubated on likely secondary to an episode of aspiration pneumonitis/pneumonia versus hypercarbia. she was extubated 10/30 current saturating well on nasal cannula incentive spirometry continuing Unasyn for 7 days until 11/05/20 (2) Infection of right below knee amputation: Code(s): T87.43 - Infection of amputation stump, right lower extremity Status: Acute Assessment and Plan: S/p debridement and wound vac placement on 10/20; Ortho and ID following. wound covered vac looks to be improving continue orthopedic follow-up. Wound VAC dressing change per orthopedics Abx She is currently on Unasyn for aspiration pneumonitis /pneumonia. She was on cefepime, Flagyl, vancomycin and p.o. vancomycin earlier which has been stopped after she had received it for 11-12 days while p.o. vancomycin for 14 days. Infectious disease service is following. (3) UTI (urinary tract infection): Qualifiers: Hematuria presence: without hematuria Urinary tract infection type: acute cystitis Qualified Code(s): N30.00 - Acute cystitis without hematuria Code(s): N39.0 - Urinary tract infection, site not specified Status: Acute Assessment and Plan: Resolved. She was on cefepime, Flagyl and vancomycin earlier but now currently on Unasyn. she had received all these antibiotic for 11-12 days. She has finished a course of p.o. vancomycin for C diff colitis. Her blood culture grew coagulase negative Staphylococcus likely contaminant. repeat blood cultures are pending Urine culture grew E coli and Pseudomonas aeruginosa. Pseudomonas aeruginosa was pretty pansensitive Including cefepime. E coli was sensitive to cefepime as well. ID following (4) Septic shock: Code(s): A41.9 - Sepsis, unspecified organism; R65.21 - Severe sepsis with septic shock Status: Acute Assessment and Plan: Resolved. Off pressors since 10/14. (5) C. difficile colitis: Code(s): A04.72 - Enterocolitis due to Clostridium difficile, not specified as recurrent Status: Acute Assessment and Plan: Completed the course of p.o. vancomycin for 14 days. (6) Acute renal failure superimposed on stage 4 chronic kidney disease: Qualifiers: Acute renal failure type: unspecified Qualified Code(s): N17.9 - Acute kidney failure, unspecified; N18.4 - Chronic kidney disease, stage 4 (severe) Code(s): N17.9 - Acute kidney failure, unspecified; N18.4 - Chronic kidney disease, stage 4 (severe) Status: Acute Assessment and Plan: Cr 4.0 Baseline Cr typically ~3.00 with variability. Nephrology following; appreciate rec. Renal US as noted above. cont Nephrology rec Monitor fluid status Strict intake output record and daily weight. Continue to monitor renal parameters and electrolytes. Andrew following diuresis per Nephrology continues to be volume overloaded (7) Normal anion gap metabolic acidosis: Code(s): E87.2 - Acidosis Status: Resolved Assessment and Plan: secondary renal disease p.o. bicarb nephro following (8) Hypertension: Qualifiers: Hypertension type: essential hypertension Qualified Code(s): I10 - Essential (primary) hypertension Code(s): I10 - Essential (primary) hypertension Status: Chronic Assessment and Plan: blood pressure elevated. patient is currently on amlodipine, clonidine, hydralazine and metoprolol. increase clonidine to t.i.d. and resume Cardura stil
[2020-11-03 17:41] LABS: Glucose Point of Care 127 mg/dl (65-105)
[2020-11-03 20:20] LABS: Glucose Point of Care 179 mg/dl (65-105)
[2020-11-03] MEDS: ATORVASTATIN 40 MG TABLET PO (20:51)
[2020-11-04] VITALS (30 sets, daily range): BP systolic 104–152; BP diastolic 47–65; PULSE 51–96; RESP 16–32; TEMP 35.8–36.1; O2SAT 81–100
[2020-11-04] MEDS: ALBUTEROL SULFATE NEB 2.5 MG/0.5 ML INH INHALATION ×4 (03:20→20:20)
[2020-11-04] MEDS: IPRATROPIUM BR 0.02% INH SOLN 0.5 MG/2.5 ML VIAL INHALATION ×4 (03:20→20:20)
[2020-11-04] MEDS: AMPICILLIN SULB 1.5 GM/NS 50ML 1.5 GM/50 ML VIAL IVPB ×2 (05:39→17:45)
[2020-11-04] MEDS: LEVOTHYROXINE SODIUM 25 MCG TABLET PO (05:42)
[2020-11-04 05:44] LABS: Basophils Absolute Auto 0.1 K/mm3 (0.0-0.1); Basophils Percent Auto 0.9 % (0.2-1.2); Eosinophils Absolute Auto 0.1 K/mm3 (0-0.3); Eosinophils Percent Auto 1.8 % (0-4.4); Hemoglobin 8.8 g/dL (12.0-15.0); Immature Granulocyte Absolute 0.14 K/mm3 (0.00-0.031); Immature Granulocyte Percent A 2.5 % (0-0.5); Lymphocytes Absolute Auto 0.49 K/mm3 (0.9-3.2); Lymphocytes Percent Auto 8.7 % (18.3-44.2); Mean Corpuscular HGB Conc 29.3 g/dl (32-36); Mean Corpuscular Hemoglobin 28.8 pg (26-34); Mean Platelet Volume 9.4 fl (7.4-10.4); Monocytes Absolute Auto 0.5 K/mm3 (0.1-0.6); Monocytes Percent Auto 8.2 % (2.6-8.5); Neutrophils Absolute Auto 4.4 K/mm3 (1.3-6.7); Neutrophils Percent Auto 77.9 % (45.5-73.1); Platelet Count Result 200 k/mm3 (150-375); Red Blood Count 3.06 M/mm3 (4.2-5.4); Red Cell Distribution Width 17.7 % (11.5-14.5); White Blood Count 5.6 K/mm3 (4.5-10.0)
[2020-11-04] MEDS: ALBUMIN HUMAN 25% 25 GM/100 ML 100 ML IVPB (05:44)
[2020-11-04 06:04] LABS: Albumin Level 3.3 g/dL (3.5-5.1); Anion Gap 10 mmol/L (8-16); Blood Urea Nitrogen 60 mg/dL (7-17); Calcium 8.3 mg/dL (8.4-10.2); Carbon Dioxide 23 mmol/L (22-30); Chloride 102 mmol/L (98-107); Estimated CRCL calculation 18 ml/min; Estimated Glomerular Filt Rate 12; Glucose 127 mg/dL (65-110); Phosphorus 5.5 mg/dL (2.5-4.5); Potassium 4.1 mmol/L (3.4-5.0); Sodium 135 mmol/L (137-145)
[2020-11-04 07:12] LABS: Platelet Estimate Adequate (Adequate)
[2020-11-04 07:13] LABS: Anisocytosis 1+ (NORMAL); Ovalocytes 1+ (NORMAL)
[2020-11-04] MEDS: ONDANSETRON INJ 4 MG/2 ML VIAL IV PUSH (08:26)
[2020-11-04] MEDS: cloNIDine HCL 0.1 MG TABLET PO ×2 (08:58→14:20)
[2020-11-04] MEDS: NIFEdipine 30 MG TAB.ER.24 PO (08:58)
[2020-11-04] MEDS: ASPIRIN 81 MG ENTERIC TABLET PO (08:58)
[2020-11-04] MEDS: DOCUSATE SODIUM 100 MG CAPSULE PO ×2 (08:58→17:45)
[2020-11-04] MEDS: FERROUS SULFATE 324 MG TABLET PO (08:58)
[2020-11-04] MEDS: hydrALAZINE HCL 50 MG TABLET 100 MG PO ×2 (08:59→14:21)
[2020-11-04] MEDS: HEPARIN SODIUM 5,000 UNITS/ML VIAL 5000 UNITS SUB-Q ×2 (08:59→20:35)
[2020-11-04] MEDS: FUROSEMIDE INJ 40 MG/4 ML VIAL IV PUSH ×2 (09:02→11:34)
[2020-11-04] MEDS: DOXAZOSIN MESYLATE 1 MG TABLET PO (09:03)
[2020-11-04] MEDS: METOPROLOL TARTRATE 50 MG TAB 100 MG PO ×2 (09:03→20:36)
[2020-11-04] MEDS: PANTOPRAZOLE SODIUM IV 40 MG VIAL IV PUSH (09:04)
[2020-11-04] MEDS: TOLNAFTATE 1% POWDER 45 GM BTL 1 APPLIC TOPICAL ×2 (09:06→20:40)
--- NOTE | 2020-11-04 10:01 | PCOTNOTE ---
Patient sleeping soundly x1 attempt, patient eating breakfast x1 attempt, patient declined treatment x1 attempt due to c/o nausea and not feeling well
[2020-11-04 11:11] LABS: Alveolar/Arterial O2 Gradient 33.1 mmHg; Base Excess ABG -6.7 mEq/l (+/-2.0); Carboxyhemoglobin 0.3 % THb (0-2.0); Fractional Inspired Oxygen 32 %; HCO3 ABG 24.5 mEq/l (22.0-26.0); Methemoglobin ABG 0.4 %THb (0-1.5); Oxygen Content ABG 13.5 %vol (16.0-22.0); Oxygen Saturation ABG 92.5 % (95.0-100.0); Oxyhemoglobin 93.1 % THb (90.0-100.0); PO2 ABG 91.4 mmHg (80.0-100.0); PO2 FiO2 Ratio Arterial Blood 2.86 %; Reduced Hemoglobin 6.2 %THb (0-5.0); Total Hemoglobin 10.2 g/dL (12.0-18.0)
[2020-11-04 11:13] LABS: Device NASAL CANNULA; Modified Allen's Test Pass; PCO2 ABG 88.6 mmHg (35.0-45.0); Site Drawn RIGHT RADIAL
[2020-11-04 11:20] LABS: Glucose Point of Care 160 mg/dl (65-105)
--- NOTE | 2020-11-04 11:30 | PM.IMPN ---
Progress Note: A&P Assessment and Plan (1) Acute on chronic respiratory failure with hypoxia and hypercapnia: Code(s): J96.21 - Acute and chronic respiratory failure with hypoxia; J96.22 - Acute and chronic respiratory failure with hypercapnia Status: Resolved Assessment and Plan: Resolved; presented with respiratory acidosis and increased lethargy requiring intubation. Patient extubated and was reintubated on likely secondary to an episode of aspiration pneumonitis/pneumonia versus hypercarbia. she was extubated 10/30 current saturating well on nasal cannula incentive spirometry continuing Unasyn for 7 days until 11/05/20 This has reoccurred again ABG this morning with pH of 7.06 with pCO2 of 88 will initiate BiPAP and repeat ABG and monitor Chest x-ray with increased congestion or give another dose of Lasix [address] her back on Colunga catheter (2) Infection of right below knee amputation: Code(s): T87.43 - Infection of amputation stump, right lower extremity Status: Acute Assessment and Plan: S/p debridement and wound vac placement on 10/20; Ortho and ID following. wound covered vac looks to be improving continue orthopedic follow-up. Wound VAC dressing change per orthopedics Abx She is currently on Unasyn for aspiration pneumonitis /pneumonia. She was on cefepime, Flagyl, vancomycin and p.o. vancomycin earlier which has been stopped after she had received it for 11-12 days while p.o. vancomycin for 14 days. Infectious disease service is following. (3) UTI (urinary tract infection): Qualifiers: Hematuria presence: without hematuria Urinary tract infection type: acute cystitis Qualified Code(s): N30.00 - Acute cystitis without hematuria Code(s): N39.0 - Urinary tract infection, site not specified Status: Acute Assessment and Plan: Resolved. She was on cefepime, Flagyl and vancomycin earlier but now currently on Unasyn. she had received all these antibiotic for 11-12 days. She has finished a course of p.o. vancomycin for C diff colitis. Her blood culture grew coagulase negative Staphylococcus likely contaminant. repeat blood cultures are pending Urine culture grew E coli and Pseudomonas aeruginosa. Pseudomonas aeruginosa was pretty pansensitive Including cefepime. E coli was sensitive to cefepime as well. ID following (4) Septic shock: Code(s): A41.9 - Sepsis, unspecified organism; R65.21 - Severe sepsis with septic shock Status: Acute Assessment and Plan: Resolved. Off pressors since 10/14. (5) C. difficile colitis: Code(s): A04.72 - Enterocolitis due to Clostridium difficile, not specified as recurrent Status: Acute Assessment and Plan: Completed the course of p.o. vancomycin for 14 days. (6) Acute renal failure superimposed on stage 4 chronic kidney disease: Qualifiers: Acute renal failure type: unspecified Qualified Code(s): N17.9 - Acute kidney failure, unspecified; N18.4 - Chronic kidney disease, stage 4 (severe) Code(s): N17.9 - Acute kidney failure, unspecified; N18.4 - Chronic kidney disease, stage 4 (severe) Status: Acute Assessment and Plan: Cr 4.0 Baseline Cr typically ~3.00 with variability. Nephrology following; appreciate rec. Renal US as noted above. cont Nephrology rec Monitor fluid status Strict intake output record and daily weight. Continue to monitor renal parameters and electrolytes. Nephrology following diuresis per Nephrology continues to be volume overloaded (7) Normal anion gap metabolic acidosis: Code(s): E87.2 - Acidosis Status: Resolved Assessment and Plan: secondary renal disease p.o. bicarb nephro following (8) Hypertension: Qualifiers: Hypertension type: essential hypertension Qualified Code(s): I10 - Essential (primary) hypertension Code(s): I10 - E
--- NOTE | 2020-11-04 12:12 | P.PNNP_ITS ---
Progress Note: A&P Assessment and Plan (1) Chronic kidney disease, stage 4 (severe): Code(s): N18.4 - Chronic kidney disease, stage 4 (severe) Status: Chronic Assessment and Plan: * creatinine is a little higher than usual. it sofía from 3-4 and then just today has fallen to 3.7. * follows with Dr. Pena for CKD management * most likely due to diabetes, hypertension, and vascular disease * the patient has acute kidney injury. * The creatinine is a little bit better today. * Urine output is not measured because she is incontinent. * Repeat Ultrasound is unremarkable * Not on diuretics. * No sign of infection such as fever or elevated white count. * No rash or eosinophilia to suggest an allergic reaction. * She is volume overloaded. * She received albumin and diuretics last night. Urine output is unmeasurable. Nursing is putting a Colunga catheter back in today. Her albumin level is up to 3.3 so will cancel the albumin but continue diuretics. * Will add metolazone to her regimen. (2) Metabolic acidosis: Code(s): E87.2 - Acidosis Status: Acute Assessment and Plan: * improving at this time * CO2 is normal. (3) Septic shock: Code(s): A41.9 - Sepsis, unspecified organism; R65.21 - Severe sepsis with septic shock Status: Acute Assessment and Plan: * resolved (4) Hypertension: Qualifiers: Hypertension type: essential hypertension Qualified Code(s): I10 - Essential (primary) hypertension Code(s): I10 - Essential (primary) hypertension Status: Chronic Assessment and Plan: * blood pressure under good control (5) Anemia: Code(s): D64.9 - Anemia, unspecified Status: Chronic Assessment and Plan: * due to underlying CKD and acute illness * on Epogen * hemoglobin is stable in the 8s (6) Type 2 diabetes mellitus: Qualifiers: Diabetes mellitus residential insulin use: without exterminator helper termite use Diabetes mellitus complication status: with kidney complications Diabetes mellitus complication detail: with chronic kidney disease Chronic kidney disease stage: stage 4 (severe) Qualified Code(s): E11.22 - Type 2 diabetes mellitus with diabetic chronic kidney disease; N18.4 - Chronic kidney disease, stage 4 (severe) Code(s): E11.9 - Type 2 diabetes mellitus without complications Status: Acute Assessment and Plan: * follow accuchecks * on SSI Subjective Date/time seen: 11/04/20 12:12 Interval history: The patient feels weaker today. She developed confusion overnight and a blood gas was done showing a very high pCO2. she was placed on a BiPAP and she seems a little bit better today. She is still very swollen Exam Narrative: General: WD/WN female in NAD Heart: normal S1 and S2; no rub or gallop Lungs: clear bilaterally Abdomen: soft, nontender, nondistended, positive bowel sounds Extremities: no cyanosis or clubbing; 1-2+ edema; s/p right BKA Skin: wound vac in place On the right stump Objective Data Vital Signs Vital Signs: Vital Signs - 24 hr 11/03/20 14:00 11/03/20 14:28 11/03/20 14:40 Temperature Pulse Rate 72 70 74 Respiratory Rate 20 22 H Blood Pressure Pulse Oximetry 11/03/20 16:00 11/03/20 18:00 11/03/20 19:04 Temperature 36.8 C 36.8 C Pulse Ra
--- NOTE | 2020-11-04 12:12 | PM.PNNEP ---
Progress Note: A&P Assessment and Plan (1) Chronic kidney disease, stage 4 (severe): Code(s): N18.4 - Chronic kidney disease, stage 4 (severe) Status: Chronic Assessment and Plan: creatinine is a little higher than usual. it sofía from 3-4 and then just today has fallen to 3.7. follows with Dr. Pena for CKD management most likely due to diabetes, hypertension, and vascular disease the patient has acute kidney injury. The creatinine is a little bit better today. Urine output is not measured because she is incontinent. Repeat Ultrasound is unremarkable Not on diuretics. No sign of infection such as fever or elevated white count. No rash or eosinophilia to suggest an allergic reaction. She is volume overloaded. She received albumin and diuretics last night. Urine output is unmeasurable. Nursing is putting a Colunga catheter back in today. Her albumin level is up to 3.3 so will cancel the albumin but continue diuretics. Will add metolazone to her regimen. (2) Metabolic acidosis: Code(s): E87.2 - Acidosis Status: Acute Assessment and Plan: improving at this time CO2 is normal. (3) Septic shock: Code(s): A41.9 - Sepsis, unspecified organism; R65.21 - Severe sepsis with septic shock Status: Acute Assessment and Plan: resolved (4) Hypertension: Qualifiers: Hypertension type: essential hypertension Qualified Code(s): I10 - Essential (primary) hypertension Code(s): I10 - Essential (primary) hypertension Status: Chronic Assessment and Plan: blood pressure under good control (5) Anemia: Code(s): D64.9 - Anemia, unspecified Status: Chronic Assessment and Plan: due to underlying CKD and acute illness on Epogen hemoglobin is stable in the 8s (6) Type 2 diabetes mellitus: Qualifiers: Diabetes mellitus snf insulin use: without snf use Diabetes mellitus complication status: with kidney complications Diabetes mellitus complication detail: with chronic kidney disease Chronic kidney disease stage: stage 4 (severe) Qualified Code(s): E11.22 - Type 2 diabetes mellitus with diabetic chronic kidney disease; N18.4 - Chronic kidney disease, stage 4 (severe) Code(s): E11.9 - Type 2 diabetes mellitus without complications Status: Acute Assessment and Plan: follow accuchecks on SSI Subjective Date/time seen: 11/04/20 12:12 Interval history: The patient feels weaker today. She developed confusion overnight and a blood gas was done showing a very high pCO2. she was placed on a BiPAP and she seems a little bit better today. She is still very swollen Exam Narrative: General: WD/WN female in NAD Heart: normal S1 and S2; no rub or gallop Lungs: clear bilaterally Abdomen: soft, nontender, nondistended, positive bowel sounds Extremities: no cyanosis or clubbing; 1-2+ edema; s/p right BKA Skin: wound vac in place On the right stump Objective Data Vital Signs Vital Signs: Vital Signs - 24 hr 11/03/20 14:00 11/03/20 14:28 11/03/20 14:40 Temperature Pulse Rate 72 70 74 Respiratory Rate 20 22 H Blood Pressure Pulse Oximetry 11/03/20 16:00 11/03/20 18:00 11/03/20 19:04 Temperature 36.8 C 36.8 C Pulse Rate 76 81 77 Respiratory Rate 26 H 22 H Blood Pressure 147/61 H 129/56 L Pulse Oximetry 93 91 11/03/20 20:00 11/03/20 20:50 11/03/20 21:25 Temperature Pulse Rate 73 70 74 Respiratory Rate 22 H Blood Pressure Pulse Oximetry 91 87 L 11/03/20 21:35 11/03/20 22:00 11/03/20 23:48 Temperature 36.3 C L Pulse Rate 77 63 67 Respiratory Rate 20 20 Blood Pressure 123/60 Pulse Oximetry 94 11/04/20 00:00 11/04/20 02:00 11/04/20 03:20 Temperature Pulse Rate 68 72 71 Respiratory Rate 20 Blood Pressure Pulse Oximetry 94 11/04/20 04:00 11/04
[2020-11-04 12:34] LABS: Alveolar/Arterial O2 Gradient 387.6 mmHg; Base Excess ABG -8.2 mEq/l (+/-2.0); Fractional Inspired Oxygen 100 %; HCO3 ABG 23.6 mEq/l (22.0-26.0); Oxygen Content ABG 13.9 %vol (16.0-22.0); Oxyhemoglobin 97.6 % THb (90.0-100.0); Total Hemoglobin 9.7 g/dL (12.0-18.0)
[2020-11-04 12:36] LABS: Device NON-INVASIVE VENT; Modified Allen's Test Pass; Non-Invasive Inspiratory Pressure 18 CMH2O; Non-Invasive Vent Rate 16 /MIN; PCO2 ABG 95.4 mmHg (35.0-45.0); Site Drawn RIGHT RADIAL; pH ABG 7.012 (7.350-7.450)
[2020-11-04 12:37] LABS: Non-Invasive Expiratory Pressure 8 CMH2O
[2020-11-04 12:43] LABS: Glucose Point of Care 155 mg/dl (65-105)
--- NOTE | 2020-11-04 13:52 | PC.NURSE ---
This nurse returned a phone call from Humaira (Daughter) and an update was given. All questions answered per Humaira.
[2020-11-04 13:58] LABS: Sodium Urine Random 76 meq/L
[2020-11-04 14:01] LABS: Creatinine Urine 25.5 mg/dL
[2020-11-04 14:02] LABS: Add Urine Microscopic? YES; Amorphous Sediment Urine Few; Appearance Urine Cloudy (Clear); Bacteria Urine Trace /hpf; Bilirubin Urine Negative (Negative); Blood Urine Negative (Negative); Color Urine Yellow (Yellow); Glucose Urine UA 1+ mg/dL (Negative); Ketones Urine Negative (Negative); Leukocyte Esterase Ur Negative LEU/UL (NEGATIVE); Mucus Urine Few /lpf; Nitrate Urine Negative (Negative); Protein Urine 3+ mg/dL (Negative); Squamous Epithelial Cell Urine Many /hpf (Few); Urobilinogen Urine Negative mg/dL (<2.0)
[2020-11-04] MEDS: metOLazone 5 MG TABLET PO (14:21)
[2020-11-04 15:10] LABS: Total Protein Urine Random > 600 mg/dL
[2020-11-04 15:30] LABS: Alveolar/Arterial O2 Gradient 133.6 mmHg; Base Excess ABG -6.4 mEq/l (+/-2.0); Fractional Inspired Oxygen 40 %; HCO3 ABG 23.5 mEq/l (22.0-26.0); Oxyhemoglobin 89.9 % THb (90.0-100.0); PO2 ABG 67.8 mmHg (80.0-100.0); Total Hemoglobin 10.2 g/dL (12.0-18.0)
[2020-11-04 15:32] LABS: PCO2 ABG 72.9 mmHg (35.0-45.0); pH ABG 7.126 (7.350-7.450)
[2020-11-04 15:33] LABS: Device NON-INVASIVE VENT; Modified Allen's Test Pass; Oxygen Saturation ABG 86.2 % (95.0-100.0); Site Drawn LEFT RADIAL
[2020-11-04 15:34] LABS: Non-Invasive Expiratory Pressure 10 CMH2O; Non-Invasive Inspiratory Pressure 22 CMH2O; Non-Invasive Vent Rate 16 /MIN
[2020-11-04 17:06] LABS: Glucose Point of Care 131 mg/dl (65-105)
[2020-11-04] MEDS: FUROSEMIDE INJ 100 MG/10 ML VIAL 80 MG IV PUSH (17:44)
[2020-11-04 18:59] LABS: Alveolar/Arterial O2 Gradient 126.5 mmHg; Fractional Inspired Oxygen 40 %; HCO3 ABG 21.4 mEq/l (22.0-26.0); Oxygen Content ABG 13.2 %vol (16.0-22.0); Oxygen Saturation ABG 94.9 % (95.0-100.0); Oxyhemoglobin 94.9 % THb (90.0-100.0); PCO2 ABG 57.9 mmHg (35.0-45.0); PO2 ABG 92.1 mmHg (80.0-100.0); Total Hemoglobin 9.8 g/dL (12.0-18.0)
[2020-11-04 19:01] LABS: Modified Allen's Test Pass; Site Drawn LEFT RADIAL; pH ABG 7.185 (7.350-7.450)
[2020-11-04 19:02] LABS: Device NON-INVASIVE VENT; Non-Invasive Expiratory Pressure 10 CMH2O; Non-Invasive Inspiratory Pressure 22 CMH2O; Non-Invasive Vent Rate 16 /MIN
[2020-11-04] MEDS: ATORVASTATIN 40 MG TABLET PO (20:36)
[2020-11-04] MEDS: ACETAMINOPHEN 325 MG TABLET 650 MG PO (20:38)
[2020-11-04 22:03] LABS: Glucose Point of Care 173 mg/dl (65-105)
[2020-11-05] VITALS (27 sets, daily range): BP systolic 108–148; BP diastolic 44–97; PULSE 54–80; RESP 16–28; TEMP 36.5–36.9; O2SAT 91–98
[2020-11-05] MEDS: ONDANSETRON INJ 4 MG/2 ML VIAL IV PUSH ×2 (01:11→08:57)
[2020-11-05] MEDS: IPRATROPIUM BR 0.02% INH SOLN 0.5 MG/2.5 ML VIAL INHALATION ×4 (01:33→20:53)
[2020-11-05] MEDS: ALBUTEROL SULFATE NEB 2.5 MG/0.5 ML INH INHALATION ×4 (01:33→20:53)
[2020-11-05 05:13] LABS: Alveolar/Arterial O2 Gradient 114.9 mmHg; Base Excess ABG -6.1 mEq/l (+/-2.0); Fractional Inspired Oxygen 35 %; HCO3 ABG 21.9 mEq/l (22.0-26.0); Oxygen Content ABG 14.2 %vol (16.0-22.0); Oxygen Saturation ABG 90.2 % (95.0-100.0); Oxyhemoglobin 92.1 % THb (90.0-100.0); PCO2 ABG 55.5 mmHg (35.0-45.0); PO2 ABG 70.1 mmHg (80.0-100.0); Total Hemoglobin 10.9 g/dL (12.0-18.0)
[2020-11-05 05:15] LABS: Device NON-INVASIVE VENT; Site Drawn LEFT BRACHIAL; pH ABG 7.214 (7.350-7.450)
[2020-11-05 05:16] LABS: Non-Invasive Expiratory Pressure 10 CMH2O; Non-Invasive Inspiratory Pressure 22 CMH2O; Non-Invasive Vent Rate 16 /MIN
[2020-11-05 05:38] LABS: Hemoglobin 8.2 g/dL (12.0-15.0); Mean Corpuscular HGB Conc 28.3 g/dl (32-36); Mean Corpuscular Volume 102.5 fl (80-100); Mean Platelet Volume 10.7 fl (7.4-10.4); Platelet Count Result 190 k/mm3 (150-375); Red Blood Count 2.83 M/mm3 (4.2-5.4); Red Cell Distribution Width 17.6 % (11.5-14.5); White Blood Count 6.7 K/mm3 (4.5-10.0)
[2020-11-05] MEDS: AMPICILLIN SULB 1.5 GM/NS 50ML 1.5 GM/50 ML VIAL IVPB ×2 (05:41→17:19)
[2020-11-05] MEDS: LEVOTHYROXINE SODIUM 25 MCG TABLET PO (05:42)
[2020-11-05 05:50] LABS: Albumin Level 2.7 g/dL (3.5-5.1); Anion Gap 12 mmol/L (8-16); Blood Urea Nitrogen 64 mg/dL (7-17); Calcium 8.2 mg/dL (8.4-10.2); Carbon Dioxide 21 mmol/L (22-30); Chloride 101 mmol/L (98-107); Estimated CRCL calculation 16 ml/min; Estimated Glomerular Filt Rate 11; Glucose 112 mg/dL (65-110); Phosphorus 6.5 mg/dL (2.5-4.5); Potassium 4.4 mmol/L (3.4-5.0); Sodium 134 mmol/L (137-145)
[2020-11-05 07:54] LABS: Glucose Point of Care 103 mg/dl (65-105)
[2020-11-05] MEDS: FUROSEMIDE INJ 100 MG/10 ML VIAL 80 MG IV PUSH ×2 (09:20→17:20)
[2020-11-05] MEDS: FERROUS SULFATE 324 MG TABLET PO (09:27)
[2020-11-05] MEDS: DOCUSATE SODIUM 100 MG CAPSULE PO ×2 (09:27→17:19)
[2020-11-05] MEDS: metOLazone 5 MG TABLET PO (09:28)
[2020-11-05] MEDS: HEPARIN SODIUM 5,000 UNITS/ML VIAL 5000 UNITS SUB-Q ×2 (09:28→22:00)
[2020-11-05] MEDS: ASPIRIN 81 MG ENTERIC TABLET PO (09:28)
[2020-11-05] MEDS: PANTOPRAZOLE SODIUM IV 40 MG VIAL IV PUSH (09:29)
[2020-11-05] MEDS: TOLNAFTATE 1% POWDER 45 GM BTL 1 APPLIC TOPICAL ×2 (09:29→22:00)
--- NOTE | 2020-11-05 10:36 | P.PNNP_ITS ---
Progress Note: A&P Assessment and Plan (1) Chronic kidney disease, stage 4 (severe): Code(s): N18.4 - Chronic kidney disease, stage 4 (severe) Status: Chronic Assessment and Plan: * creatinine is up and down. Her baseline is around 3. * follows with Dr. Pena for CKD management * most likely due to diabetes, hypertension, and vascular disease * the patient has acute kidney injury. * the patient had CO2 retention yesterday so was placed on the BiPAP machine. Diuretics were instituted. * The creatinine Is higher today. * Repeat Ultrasound is unremarkable * No sign of infection such as fever or elevated white count. * No rash or eosinophilia to suggest an allergic reaction. * She is volume overloaded. * She has a very high amount of protein in the urine. She probably has nephrotic syndrome and the diuretics are from this. * She received albumin and diuretics For couple of days. Albumin level was better and supplements were discontinued. We are continuing diuretics. * She is on furosemide and metolazone. (2) Metabolic acidosis: Code(s): E87.2 - Acidosis Status: Acute Assessment and Plan: * improving at this time * CO2 is normal. * She also had respiratory acidosis yesterday. Her blood gasses before, in the ICU, showed intermittently high pCO2. It is unclear what caused these variations. (3) Septic shock: Code(s): A41.9 - Sepsis, unspecified organism; R65.21 - Severe sepsis with septic shock Status: Acute Assessment and Plan: * resolved (4) Hypertension: Qualifiers: Hypertension type: essential hypertension Qualified Code(s): I10 - Essential (primary) hypertension Code(s): I10 - Essential (primary) hypertension Status: Chronic Assessment and Plan: * blood pressure under good control (5) Anemia: Code(s): D64.9 - Anemia, unspecified Status: Chronic Assessment and Plan: * due to underlying CKD and acute illness * on Epogen * hemoglobin is stable in the 8s (6) Type 2 diabetes mellitus: Qualifiers: Diabetes mellitus custodial insulin use: without custodial use Diabetes mellitus complication status: with kidney complications Diabetes mellitus complication detail: with chronic kidney disease Chronic kidney disease stage: stage 4 (severe) Qualified Code(s): E11.22 - Type 2 diabetes mellitus with diabetic chronic kidney disease; N18.4 - Chronic kidney disease, stage 4 (severe) Code(s): E11.9 - Type 2 diabetes mellitus without complications Status: Acute Assessment and Plan: * follow accuchecks * on SSI Subjective Date/time seen: 11/05/20 10:36 Interval history: Rimma is feeling better today. She does not remember me being here yesterday as expected. She is breathing okay. She is getting some physical therapy now. She does still have swelling. Exam Narrative: General: WD/WN female in NAD Heart: normal S1 and S2; no rub or gallop Lungs: clear to auscultation Abdomen: soft, nontender, nondistended, positive bowel sounds Extremities: no cyanosis or clubbing; 1-2+ edema; s/p right BKA Skin: wound vac in place on the right stump Objective Data Vital Signs Vital Signs: Vital Signs - 24 hr 11/04/20 11:24 11/04/20 12:00 11/04/20 12:26 Temperature 35.8 C L Pulse Rate 96 51 L 56 L Respiratory Rate 18 16 Blood P
--- NOTE | 2020-11-05 10:36 | PM.PNNEP ---
Progress Note: A&P Assessment and Plan (1) Chronic kidney disease, stage 4 (severe): Code(s): N18.4 - Chronic kidney disease, stage 4 (severe) Status: Chronic Assessment and Plan: creatinine is up and down. Her baseline is around 3. follows with Dr[address] Pena for CKD management most likely due to diabetes, hypertension, and vascular disease the patient has acute kidney injury. the patient had CO2 retention yesterday so was placed on the BiPAP machine. Diuretics were instituted. The creatinine Is higher today. Repeat Ultrasound is unremarkable No sign of infection such as fever or elevated white count. No rash or eosinophilia to suggest an allergic reaction. She is volume overloaded. She has a very high amount of protein in the urine. She probably has nephrotic syndrome and the diuretics are from this. She received albumin and diuretics For couple of days. Albumin level was better and supplements were discontinued. We are continuing diuretics. She is on furosemide and metolazone. (2) Metabolic acidosis: Code(s): E87.2 - Acidosis Status: Acute Assessment and Plan: improving at this time CO2 is normal. She also had respiratory acidosis yesterday. Her blood gasses before, in the ICU, showed intermittently high pCO2. It is unclear what caused these variations. (3) Septic shock: Code(s): A41.9 - Sepsis, unspecified organism; R65.21 - Severe sepsis with septic shock Status: Acute Assessment and Plan: resolved (4) Hypertension: Qualifiers: Hypertension type: essential hypertension Qualified Code(s): I10 - Essential (primary) hypertension Code(s): I10 - Essential (primary) hypertension Status: Chronic Assessment and Plan: blood pressure under good control (5) Anemia: Code(s): D64.9 - Anemia, unspecified Status: Chronic Assessment and Plan: due to underlying CKD and acute illness on Epogen hemoglobin is stable in the 8s (6) Type 2 diabetes mellitus: Qualifiers: Diabetes mellitus remote computer terminal operator insulin use: without group home use Diabetes mellitus complication status: with kidney complications Diabetes mellitus complication detail: with chronic kidney disease Chronic kidney disease stage: stage 4 (severe) Qualified Code(s): E11.22 - Type 2 diabetes mellitus with diabetic chronic kidney disease; N18.4 - Chronic kidney disease, stage 4 (severe) Code(s): E11.9 - Type 2 diabetes mellitus without complications Status: Acute Assessment and Plan: follow accuchecks on SSI Subjective Date/time seen: 11/05/20 10:36 Interval history: Rimma is feeling better today. She does not remember me being here yesterday as expected. She is breathing okay. She is getting some physical therapy now. She does still have swelling. Exam Narrative: General: WD/WN female in NAD Heart: normal S1 and S2; no rub or gallop Lungs: clear to auscultation Abdomen: soft, nontender, nondistended, positive bowel sounds Extremities: no cyanosis or clubbing; 1-2+ edema; s/p right BKA Skin: wound vac in place on the right stump Objective Data Vital Signs Vital Signs: Vital Signs - 24 hr 11/04/20 11:24 11/04/20 12:00 11/04/20 12:26 Temperature 35.8 C L Pulse Rate 96 51 L 56 L Respiratory Rate 18 16 Blood Pressure 122/58 L Pulse Oximetry 91 100 11/04/20 13:04 11/04/20 13:45 11/04/20 13:47 Temperature Pulse Rate 54 L 54 L Respiratory Rate 21 H 24 H 24 H Blood Pressure Pulse Oximetry 96 11/04/20 13:54 11/04/20 14:00 11/04/20 16:00 Temperature Pulse Rate 54 L 53 L 52 L Respiratory Rate 24 H Blood Pressure Pulse Oximetry 11/04/20 16:56 11/04/20 17:51 11/04/20 18:00 Temperature 36.1 C L Pulse Rate 51 L 52 L Respiratory Rate 20 Blood Pressure 108/49 L 112/58 L Pulse Oximetry 97
[2020-11-05 11:52] LABS: Glucose Point of Care 108 mg/dl (65-105)
--- NOTE | 2020-11-05 12:34 | P.PNIM_ITS ---
Progress Note: A&P Assessment and Plan (1) Acute on chronic respiratory failure with hypoxia and hypercapnia: Code(s): J96.21 - Acute and chronic respiratory failure with hypoxia; J96.22 - Acute and chronic respiratory failure with hypercapnia Status: Resolved Assessment and Plan: Resolved; presented with respiratory acidosis and increased lethargy requiring intubation. Patient extubated and was reintubated on likely secondary to an episode of aspiration pneumonitis/pneumonia versus hypercarbia. she was extubated 10/30 current saturating well on nasal cannula incentive spirometry continuing Unasyn for 7 days until 11/05/20 This has reoccurred again ABG this morning with pH of 7.06 with pCO2 of 88 will initiate BiPAP and repeat ABG and monitor Chest x-ray with increased congestion or give another dose of Lasix [address] her back on Colunga catheter (2) Infection of right below knee amputation: Code(s): T87.43 - Infection of amputation stump, right lower extremity Status: Acute Assessment and Plan: S/p debridement and wound vac placement on 10/20; Ortho and ID following. wound covered vac looks to be improving * continue orthopedic follow-up. Wound VAC dressing change per orthopedics * Abx She is currently on Unasyn for aspiration pneumonitis /pneumonia. She was on cefepime, Flagyl, vancomycin and p.o. vancomycin earlier which has been stopped after she had received it for 11-12 days while p.o. vancomycin for 14 days. * Infectious disease service is following. (3) UTI (urinary tract infection): Qualifiers: Hematuria presence: without hematuria Urinary tract infection type: acute cystitis Qualified Code(s): N30.00 - Acute cystitis without hematuria Code(s): N39.0 - Urinary tract infection, site not specified Status: Acute Assessment and Plan: Resolved. She was on cefepime, Flagyl and vancomycin earlier but now currently on Unasyn. she had received all these antibiotic for 11-12 days. She has finished a course of p.o. vancomycin for C diff colitis. Her blood culture grew coagulase negative Staphylococcus likely contaminant. repeat blood cultures are pending Urine culture grew E coli and Pseudomonas aeruginosa. Pseudomonas aeruginosa was pretty pansensitive Including cefepime. E coli was sensitive to cefepime as well. ID following (4) Septic shock: Code(s): A41.9 - Sepsis, unspecified organism; R65.21 - Severe sepsis with septic shock Status: Acute Assessment and Plan: Resolved. Off pressors since 10/14. (5) C. difficile colitis: Code(s): A04.72 - Enterocolitis due to Clostridium difficile, not specified as recurrent Status: Acute Assessment and Plan: Completed the course of p.o. vancomycin for 14 days. (6) Acute renal failure superimposed on stage 4 chronic kidney disease: Qualifiers: Acute renal failure type: unspecified Qualified Code(s): N17.9 - Acute kidney failure, unspecified; N18.4 - Chronic kidney disease, stage 4 (severe) Code(s): N17.9 - Acute kidney failure, unspecified; N18.4 - Chronic kidney disease, stage 4 (severe) Status: Acute Assessment and Plan: Cr 4.0 Baseline Cr typically ~3.00 with variability. Nephrology following; appreciate rec. Renal US as noted above. * cont Nephrology rec * Monitor fluid status * Strict intake output record and daily weight. Continue to monitor renal parameters and electrolytes. * Nephrology following diuresis per Nephrology continues to be volume overloaded * (7)
--- NOTE | 2020-11-05 12:59 | PC.NURSE ---
Patient denies nausea medication at this time.
[2020-11-05 17:00] LABS: Glucose Point of Care 108 mg/dl (65-105)
[2020-11-05 21:25] LABS: Glucose Point of Care 145 mg/dl (65-105)
[2020-11-05] MEDS: ATORVASTATIN 40 MG TABLET PO (22:00)
[2020-11-05] MEDS: METOPROLOL TARTRATE 50 MG TAB 100 MG PO (22:00)
[2020-11-06] VITALS (26 sets, daily range): BP systolic 114–140; BP diastolic 51–78; PULSE 62–87; RESP 12–24; TEMP 36.1–36.9; O2SAT 91–100
[2020-11-06] MEDS: IPRATROPIUM BR 0.02% INH SOLN 0.5 MG/2.5 ML VIAL INHALATION ×4 (03:20→20:03)
[2020-11-06] MEDS: ALBUTEROL SULFATE NEB 2.5 MG/0.5 ML INH INHALATION ×4 (03:20→20:03)
[2020-11-06 05:24] LABS: Sodium Urine Random 79 meq/L
[2020-11-06 05:41] LABS: Albumin Level 2.8 g/dL (3.5-5.1); Anion Gap 11 mmol/L (8-16); Blood Urea Nitrogen 68 mg/dL (7-17); Calcium 8.3 mg/dL (8.4-10.2); Carbon Dioxide 23 mmol/L (22-30); Chloride 101 mmol/L (98-107); Estimated CRCL calculation 14 ml/min; Estimated Glomerular Filt Rate 9; Glucose 84 mg/dL (65-110); Phosphorus 6.1 mg/dL (2.5-4.5); Potassium 4.4 mmol/L (3.4-5.0); Sodium 135 mmol/L (137-145)
--- NOTE | 2020-11-06 06:30 | PM.IMPN ---
Progress Note: A&P Assessment and Plan (1) Acute on chronic respiratory failure with hypoxia and hypercapnia: Code(s): J96.21 - Acute and chronic respiratory failure with hypoxia; J96.22 - Acute and chronic respiratory failure with hypercapnia Status: Resolved Assessment and Plan: Resolved; presented with respiratory acidosis and increased lethargy requiring intubation. Patient extubated and was reintubated on likely secondary to an episode of aspiration pneumonitis/pneumonia versus hypercarbia. she was extubated 10/30 current saturating well on nasal cannula incentive spirometry continuing Unasyn for 7 days until 11/05/20 This has reoccurred again ABG this morning with pH of 7.06 with pCO2 of 88 will initiate BiPAP and repeat ABG and monitor Chest x-ray with increased congestion or give another dose of Lasix [address] her back on Colunga catheter 11/06/2020 patient is still requiring BiPAP will continue current treatment. Repeat chest x-ray. Continue antibiotics. (2) Infection of right below knee amputation: Code(s): T87.43 - Infection of amputation stump, right lower extremity Status: Acute Assessment and Plan: S/p debridement and wound vac placement on 10/20; Ortho and ID following. wound covered vac looks to be improving continue orthopedic follow-up. Wound VAC dressing change per orthopedics Abx She is currently on Unasyn for aspiration pneumonitis /pneumonia. She was on cefepime, Flagyl, vancomycin and p.o. vancomycin earlier which has been stopped after she had received it for 11-12 days while p.o. vancomycin for 14 days. Infectious disease service is following. WBC is better. will continue with IV antibiotics. (3) UTI (urinary tract infection): Qualifiers: Hematuria presence: without hematuria Urinary tract infection type: acute cystitis Qualified Code(s): N30.00 - Acute cystitis without hematuria Code(s): N39.0 - Urinary tract infection, site not specified Status: Acute Assessment and Plan: Resolved. She was on cefepime, Flagyl and vancomycin earlier but now currently on Unasyn. she had received all these antibiotic for 11-12 days. She has finished a course of p.o. vancomycin for C diff colitis. Her blood culture grew coagulase negative Staphylococcus likely contaminant. repeat blood cultures are pending Urine culture grew E coli and Pseudomonas aeruginosa. Pseudomonas aeruginosa was pretty pansensitive Including cefepime. E coli was sensitive to cefepime as well. 11/06/2020 Will continue with IV antibiotics. ID following (4) Septic shock: Code(s): A41.9 - Sepsis, unspecified organism; R65.21 - Severe sepsis with septic shock Status: Acute Assessment and Plan: Resolved. Off pressors since 10/14. (5) C. difficile colitis: Code(s): A04.72 - Enterocolitis due to Clostridium difficile, not specified as recurrent Status: Acute Assessment and Plan: Completed the course of p.o. vancomycin for 14 days. (6) Acute renal failure superimposed on stage 4 chronic kidney disease: Qualifiers: Acute renal failure type: unspecified Qualified Code(s): N17.9 - Acute kidney failure, unspecified; N18.4 - Chronic kidney disease, stage 4 (severe) Code(s): N17.9 - Acute kidney failure, unspecified; N18.4 - Chronic kidney disease, stage 4 (severe) Status: Acute Assessment and Plan: Cr 4.0 Baseline Cr typically ~3.00 with variability. Nephrology following; appreciate rec. Renal US as noted above. cont Nephrology rec Monitor fluid status Strict intake output record and daily weight. Continue to monitor renal parameters and electrolytes. Nephrology following diuresis per Nephrology continues to be volume overloaded (7) Normal anion gap metabolic acidosis: Code(s): E87.2 - Acidosis Status: Resolved Assessment and
[2020-11-06] MEDS: AMPICILLIN SULB 1.5 GM/NS 50ML 1.5 GM/50 ML VIAL IVPB ×2 (06:34→17:25)
[2020-11-06] MEDS: LEVOTHYROXINE SODIUM 25 MCG TABLET PO (06:34)
[2020-11-06] MEDS: ACETAMINOPHEN 325 MG TABLET 650 MG PO (08:45)
[2020-11-06] MEDS: PANTOPRAZOLE SODIUM IV 40 MG VIAL IV PUSH (08:46)
[2020-11-06] MEDS: metOLazone 5 MG TABLET PO (08:46)
[2020-11-06] MEDS: FERROUS SULFATE 324 MG TABLET PO (08:46)
[2020-11-06] MEDS: ASPIRIN 81 MG ENTERIC TABLET PO (08:46)
[2020-11-06] MEDS: DOCUSATE SODIUM 100 MG CAPSULE PO ×2 (08:46→16:48)
[2020-11-06] MEDS: HEPARIN SODIUM 5,000 UNITS/ML VIAL 5000 UNITS SUB-Q ×2 (08:46→21:17)
[2020-11-06] MEDS: FUROSEMIDE INJ 100 MG/10 ML VIAL 80 MG IV PUSH ×2 (08:46→16:48)
[2020-11-06] MEDS: METOPROLOL TARTRATE 50 MG TAB 100 MG PO ×2 (08:47→21:17)
[2020-11-06 08:50] LABS: Glucose Point of Care 80 mg/dl (65-105)
[2020-11-06] MEDS: TOLNAFTATE 1% POWDER 45 GM BTL 1 APPLIC TOPICAL ×2 (08:58→21:17)
--- NOTE | 2020-11-06 12:13 | PM.CNPUL ---
Assessment and Plan Assessment and plan (1) Acute on chronic respiratory failure with hypoxia and hypercapnia: Code(s): J96.21 - Acute and chronic respiratory failure with hypoxia; J96.22 - Acute and chronic respiratory failure with hypercapnia Status: Resolved Assessment and Plan: Patient Patient has acute on chronic respiratory failure with hypoxemia and hypercarbia. Patient would benefit from noninvasive ventilation although at this time she says that she cannot tolerate the BiPAP mask. She tells me that she would rather wait to see if she can recover and to initiate this treatment as an outpatient if possible. I told her that she may need this machine during the hospital especially if she has an acute decompensation. She said if that happened she is willing to wear the BiPAP but only if it is an acute emergency. I suspect the etiology of her chronic hypercarbic and hypoxemic respiratory failure is morbid obesity with obesity hypoventilation syndrome. She is a never smoker, she is not on any inhaled medications at home, she has no COPD on her CT scan of the chest from 10/11/2020, has no interstitial lung disease on her scan from 10/11/2020. TSH is 1.78 on 10/12/2020 and 2.63 on 10/11/2020. At this time I would initiate BiPAP per emergencies as she has wished. she can follow-up with us in the pulmonary clinic after she recovers for further workup to initiate noninvasive ventilation at home. She will need an outpatient sleep study. Will sing off, call for any questions History of Present Illness History of Present Illness Consult date: 11/06/20 Reason for consult: hypoxemia Chief complaint: Debridement infection of right BKA Narrative: 65-year-old with a history of diabetes, hypertension, hypothyroidism, recent leg amputation who was at rehabilitation and transferred to our hospital on 10/02/2020 to 10/06/20 and was readmitted on 10/11/2020 with bradycardia, septic shock, respiratory failure, urinary tract infection and was in and was intubated and on pressors. Patient was ultimately extubated on 10/31 but since then has required BiPAP for acute on chronic hypoxemic and hypercarbic respiratory failure. Patient's last blood gas on 11/05/2020 at 4:50 a.m. was 7.21/55/70 on BiPAP with a set rate of 16 and 22/10 with 35% FiO2. 8/2 Currently the patient is awake alert sitting in a chair in no respiratory distress on 5 L nasal cannula with saturation 93%. She is morbidly obese with a BMI of 50.3. she states she is a never smoker but has been exposed to her who smoked in the house up until 10 weeks ago. Patient denies any occupational exposures and states she has never had a sleep study. She tells me that she is feeling better and does not think she can tolerate the CPAP -BiPAP machine anymore because it makes her anxious and she can't sleep with it on. I told her it may be necessary for her to wear this in case of an emergency and she does agree to wear it in case of an emergency. Currently patient denies fever, chills, rigors, phlegm production, hemoptysis. Review of Systems Review of Systems: All systems reviewed & are unremarkable except as noted in HPI and below Eyes: Eyes: Reports no additional eye complaints ENT: Reports system reviewed and no additional complaints, except as documented Cardiovascular: Cardiovascular: Reports no additional cardiovascular complaints Respiratory: Respiratory: Reports no additional respiratory complaints Gastrointestinal: Gastrointestinal: Reports no additional gastrointestinal complaints Musculoskeletal: Musculoskeletal: Reports no additional musculoskeletal complaints Integumentary/Breasts: Skin/Breast: Reports system reviewed and no additional complaints, except as docu Neurologic: Reports system reviewed and no additional complaints, except as documented Psychiatric: Psychiatric: Reports no additional psychiatric complaints Endocrine: Endocrine: Rep
[2020-11-06] MEDS: EPOETIN ALFA-EPBX 10,000 UNITS/ML VIAL 10000 UNITS SUB-Q (12:14)
[2020-11-06 12:33] LABS: Glucose Point of Care 86 mg/dl (65-105)
--- NOTE | 2020-11-06 12:57 | PM.PNORT ---
Progress Note: A&P Assessment and Plan (1) Delayed surgical wound healing of floly-oxd-cziv amputation stump: Code(s): T87.89 - Other complications of amputation stump; T81.89XA - Other complications of procedures, not elsewhere classified, initial encounter Status: Acute Assessment and Plan: New wound VAC dressing applied today. Improvement in wound bed noted. No signs of worsening infection, no necrosis. Notable new granulation tissue. No knee pain, good ROM. Will continue wound VAC dressing changes three times weekly. Continue nutritional supplement. Will continue to follow. Subjective Subjective Date/Time Seen: 11/06/20 12:57 Post Op day: 18 Interval history: No new complaints. Urinary catheter in place once again, reports of decreased urine output. No new concerns regarding wound. Also now with recurrent respiratory complications, pulmonology following. Review of Systems Review of Systems: All systems reviewed & are unremarkable except as noted in HPI and below Exam Const: General: cooperative, comfortable, no acute distress and awake Nutritional Appearance: obese HENMT: Head: normal to inspection, normocephalic and atraumatic Eyes: Conjunctivae: conjunctivae normal Sclera: sclerae normal Neck: Neck: supple and nontender Resp: Other: on nasal cannula O2 GI: Inspection: non-distended GI Palp: Yes Soft to palpation, No Tenderness to palpation present (GI) and No Guarding due to palpation present (GI) : General: Yes deferred Skin: Wounds: wounds noted (see below ) Extrem: Right lower extremity: hip/thigh Details: normal to inspection, knee Details: normal to inspection; no tenderness and lower leg (Below-knee amputation.) Left lower extremity: hip/thigh Details: normal to inspection, knee Details: abnormal ROM ( range of motion deferred secondary to fracture), ankle (no calf tenderness) Details: normal to inspection, abnormal ROM Details: with range as follows ( Minimal range of motion ankle and hindfoot secondary to fusion); no pain with active ROM and no pain with passive ROM and other ( good capillary refill in toes, 2+ DP pulse, light touch sensation intact); no tenderness ( lateral malleolus, anterior ankle and medial ankle) and no swelling ( moderate anterior ankle, moderate lateral ankle) and foot Details: normal capillary refill, toes with normal ROM, vascular exam Details: dorsalis pedis pulse present and normal capillary refill, tendon exam active flexion normal and active extension normal and motor-sensory exam two point discrimination normal and light-touch normal; no tenderness Other: Right BKA wound VAC dressing removed. Notable new granulation tissue. Serosanguineous drainage in chamber. No purulence or signs of infection. Improvement in dimensions today. Psych: Affect: normal affect Objective Data Vital Signs Vital Signs: Vital Signs - 24 hr 11/05/20 13:42 11/05/20 13:49 11/05/20 14:00 Temperature Pulse Rate 75 71 72 Respiratory Rate 20 22 H Blood Pressure Pulse Oximetry 11/05/20 16:00 11/05/20 18:00 11/05/20 20:00 Temperature 36.6 C 36.5 C Pulse Rate 76 80 73 Respiratory Rate 28 H 24 H Blood Pressure 125/97 H 124/44 L Pulse Oximetry 94 95 11/05/20 20:53 11/05/20 20:57 11/05/20 21:10 Temperature Pulse Rate 74 71 75 Respiratory Rate 20 20 20 Blood Pressure Pulse Oximetry 97 11/05/20 21:11 11/05/20 22:00 11/05/20 23:30 Temperature Pulse Rate 72 74 68 Respiratory Rate 20 22 H Blood Pressure 134/54 L Pulse Oximetry 92 95 11/06/20 00:00 11/06/20 02:00 11/06/20 03:20 Temperature 36.6 C Pulse Rate 87 69 71 Respiratory Rate 22 H 21 H Blood Pressure 139/78 Pulse Oximetry 93 11/06/20 03:25 11/06/20 03:35 11/06/20 03:36 Temperature Pulse Rate 71 68 68 Respiratory Rate 21 H 24 H 23 H Blood Pressure Pulse Oximetry 91 93 11/06/20 04:00 11/06/20 06:00 11/06/20 08:00 Temperature 36.6 C 36.3 C L
--- NOTE | 2020-11-06 13:54 | P.PNNP_ITS ---
Progress Note: A&P Assessment and Plan (1) Chronic kidney disease, stage 4 (severe): Code(s): N18.4 - Chronic kidney disease, stage 4 (severe) Status: Chronic Assessment and Plan: * creatinine is up and down. Her baseline is around 3. * follows with Dr. Pena for CKD management * most likely due to diabetes, hypertension, and vascular disease * the patient has acute kidney injury. * Urine sodium was not low yesterday but she is on diuretics. * Repeat ultrasound shows no hydronephrosis * creatinine is higher again. * This could be due to malfunctioning Colunga catheter. * It could also be due to ATN. * Pre renal azotemia is possible as well because of her wide-open nephrotic syndrome. * Will continue diuretics. (2) Metabolic acidosis: Code(s): E87.2 - Acidosis Status: Acute Assessment and Plan: * improving at this time * CO2 is normal. * The patient had respiratory acidosis as well. * This is somewhat better. * Her says that she snores. Perhaps she has sleep apnea. (3) Septic shock: Code(s): A41.9 - Sepsis, unspecified organism; R65.21 - Severe sepsis with septic shock Status: Acute Assessment and Plan: * resolved (4) Hypertension: Qualifiers: Hypertension type: essential hypertension Qualified Code(s): I10 - Essential (primary) hypertension Code(s): I10 - Essential (primary) hypertension Status: Chronic Assessment and Plan: * blood pressure under good control (5) Anemia: Code(s): D64.9 - Anemia, unspecified Status: Chronic Assessment and Plan: * due to underlying CKD and acute illness * on Epogen * hemoglobin is stable in the 8s (6) Type 2 diabetes mellitus: Qualifiers: 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 in the room. She is still swollen. Her Colunga catheter malfunction last night and they flushed it and now she is making more urine. Exam Narrative: General: WD/WN female in NAD Heart: normal S1 and S2; no rub or gallop Lungs: clear Abdomen: soft, nontender, nondistended, positive bowel sounds Extremities: no cyanosis or clubbing; 1-2+ edema; s/p right BKA Skin: wound vac in place on the right stump Objective Data Vital Signs Vital Signs: Vital Signs - 24 hr 11/05/20 14:00 11/05/20 16:00 11/05/20 18:00 Temperature 36.6 C Pulse Rate 72 76 80 Respiratory Rate 28 H Blood Pressure 125/97 H Pulse Oximetry 94 11/05/20 20:00 11/05/20 20:53 11/05/20 20:57 Temperature 36.5 C Pulse Rate 73 74 71 Respiratory Rate 24 H 20 20 Blood Pressure 124/44 L Pulse Oximetry 95 97 11/05/20 21:10 11/05/20 21:11 11/05/20
--- NOTE | 2020-11-06 13:54 | PM.PNNEP ---
Progress Note: A&P Assessment and Plan (1) Chronic kidney disease, stage 4 (severe): Code(s): N18.4 - Chronic kidney disease, stage 4 (severe) Status: Chronic Assessment and Plan: creatinine is up and down. Her baseline is around 3. follows with Dr. Pena for CKD management most likely due to diabetes, hypertension, and vascular disease the patient has acute kidney injury. Urine sodium was not low yesterday but she is on diuretics. Repeat ultrasound shows no hydronephrosis creatinine is higher again. This could be due to malfunctioning Colunga catheter. It could also be due to ATN. Pre renal azotemia is possible as well because of her wide-open nephrotic syndrome. Will continue diuretics. (2) Metabolic acidosis: Code(s): E87.2 - Acidosis Status: Acute Assessment and Plan: improving at this time CO2 is normal. The patient had respiratory acidosis as well. This is somewhat better. Her says that she snores. Perhaps she has sleep apnea. (3) Septic shock: Code(s): A41.9 - Sepsis, unspecified organism; R65.21 - Severe sepsis with septic shock Status: Acute Assessment and Plan: resolved (4) Hypertension: Qualifiers: Hypertension type: essential hypertension Qualified Code(s): I10 - Essential (primary) hypertension Code(s): I10 - Essential (primary) hypertension Status: Chronic Assessment and Plan: blood pressure under good control (5) Anemia: Code(s): D64.9 - Anemia, unspecified Status: Chronic Assessment and Plan: due to underlying CKD and acute illness on Epogen hemoglobin is stable in the 8s (6) Type 2 diabetes mellitus: Qualifiers: Diabetes mellitus [facility] insulin use: 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 in the room. She is still swollen. Her Colunga catheter malfunction last night and they flushed it and now she is making more urine. Exam Narrative: General: WD/WN female in NAD Heart: normal S1 and S2; no rub or gallop Lungs: clear Abdomen: soft, nontender, nondistended, positive bowel sounds Extremities: no cyanosis or clubbing; 1-2+ edema; s/p right BKA Skin: wound vac in place on the right stump Objective Data Vital Signs Vital Signs: Vital Signs - 24 hr 11/05/20 14:00 11/05/20 16:00 11/05/20 18:00 Temperature 36.6 C Pulse Rate 72 76 80 Respiratory Rate 28 H Blood Pressure 125/97 H Pulse Oximetry 94 11/05/20 20:00 11/05/20 20:53 11/05/20 20:57 Temperature 36.5 C Pulse Rate 73 74 71 Respiratory Rate 24 H 20 20 Blood Pressure 124/44 L Pulse Oximetry 95 97 11/05/20 21:10 11/05/20 21:11 11/05/20 22:00 Temperature Pulse Rate 75 72 74 Respiratory Rate 20 20 Blood Pressure 134/54 L Pulse Oximetry 92 11/05/20 23:30 11/06/20 00:00 11/06/20 02:00 Temperature 36.6 C Pulse Rate 68 87 69 Respiratory Rate 22 H 22 H Blood Pressure 139/78 Pulse Oximetry 95 93 11/06/20 03:20 11/06/20 03:25 11/06/20 03:35 Temperature Pulse Rate 71 71 68 Respiratory Rate 21 H 21 H 24 H Blood Pressure Pulse Oximetry 91 11/06/20 03:36 11/06/20 04:00 11/06/20 06:00 Temperature 36.6 C Pulse Rate 68 62 76 Respiratory Rate 23 H 22 H Blood Pressure 140/69 Pulse Oximetry 93 98 11/06/20 08:00 11/06/20 08:40
[2020-11-06 17:06] LABS: Glucose Point of Care 99 mg/dl (65-105)
[2020-11-06] MEDS: ATORVASTATIN 40 MG TABLET PO (21:17)
[2020-11-06 21:43] LABS: Glucose Point of Care 140 mg/dl (65-105)
[2020-11-07] VITALS (20 sets, daily range): BP systolic 119–135; BP diastolic 51–82; PULSE 62–84; RESP 13–24; TEMP 36.5–37.1; O2SAT 93–100
[2020-11-07] MEDS: ALBUTEROL SULFATE NEB 2.5 MG/0.5 ML INH INHALATION ×4 (02:46→23:45)
[2020-11-07] MEDS: IPRATROPIUM BR 0.02% INH SOLN 0.5 MG/2.5 ML VIAL INHALATION ×4 (02:46→23:45)
[2020-11-07] MEDS: LEVOTHYROXINE SODIUM 25 MCG TABLET PO (05:54)
[2020-11-07] MEDS: AMPICILLIN SULB 1.5 GM/NS 50ML 1.5 GM/50 ML VIAL IVPB ×2 (05:54→17:14)
[2020-11-07 06:04] LABS: Hematocrit 27.9 % (37.0-47.0); Hemoglobin 8.3 g/dL (12.0-15.0); Mean Corpuscular HGB Conc 29.7 g/dl (32-36); Mean Corpuscular Hemoglobin 28.9 pg (26-34); Mean Corpuscular Volume 97.2 fl (80-100); Mean Platelet Volume 10.9 fl (7.4-10.4); Platelet Count Result 198 k/mm3 (150-375); Red Blood Count 2.87 M/mm3 (4.2-5.4); Red Cell Distribution Width 17.6 % (11.5-14.5); White Blood Count 11.2 K/mm3 (4.5-10.0)
[2020-11-07 06:14] LABS: Anion Gap 13 mmol/L (8-16); Blood Urea Nitrogen 75 mg/dL (7-17); Calcium 7.7 mg/dL (8.4-10.2); Carbon Dioxide 20 mmol/L (22-30); Chloride 103 mmol/L (98-107); Estimated CRCL calculation 14 ml/min; Estimated Glomerular Filt Rate 9; Glucose 73 mg/dL (65-110); Potassium 4.3 mmol/L (3.4-5.0); Sodium 136 mmol/L (137-145)
[2020-11-07 08:16] LABS: Glucose Point of Care 76 mg/dl (65-105)
[2020-11-07] MEDS: FERROUS SULFATE 324 MG TABLET PO (09:01)
[2020-11-07] MEDS: ASPIRIN 81 MG ENTERIC TABLET PO (09:01)
[2020-11-07] MEDS: DOCUSATE SODIUM 100 MG CAPSULE PO ×2 (09:01→17:10)
[2020-11-07] MEDS: FUROSEMIDE INJ 100 MG/10 ML VIAL 80 MG IV PUSH ×2 (09:01→17:10)
[2020-11-07] MEDS: HEPARIN SODIUM 5,000 UNITS/ML VIAL 5000 UNITS SUB-Q ×2 (09:01→20:54)
[2020-11-07] MEDS: metOLazone 5 MG TABLET PO (09:02)
[2020-11-07] MEDS: PANTOPRAZOLE SODIUM IV 40 MG VIAL IV PUSH (09:02)
[2020-11-07] MEDS: TOLNAFTATE 1% POWDER 45 GM BTL 1 APPLIC TOPICAL ×2 (09:02→20:54)
[2020-11-07] MEDS: METOPROLOL TARTRATE 50 MG TAB 100 MG PO ×2 (09:04→20:54)
--- NOTE | 2020-11-07 10:18 | PM.PNORT ---
Progress Note: A&P Assessment and Plan (1) Delayed surgical wound healing of srbom-fvm-[id number] amputation stump: Code(s): T87.89 - Other complications of amputation stump; T81.89XA - Other complications of procedures, not elsewhere classified, initial encounter Status: Acute Assessment and Plan: Wound VAC dressing applied today. Surrounding tissue with no signs of infection. No signs of worsening infection, no necrosis. Notable new granulation tissue. No knee pain, good ROM. Will continue wound VAC dressing changes three times weekly. Continue nutritional supplement. Will continue to follow. Subjective Subjective Date/Time Seen: 11/07/20 10:18 No new concerns regarding wound. No new complaints. Review of Systems Review of Systems: All systems reviewed & are unremarkable except as noted in HPI and below Exam Const: General: cooperative, comfortable, no acute distress and awake Nutritional Appearance: obese HENMT: Head: normal to inspection, normocephalic and atraumatic Eyes: Conjunctivae: conjunctivae normal Sclera: sclerae normal Neck: Neck: supple and nontender Resp: Other: on nasal cannula O2 GI: Inspection: non-distended GI Palp: Yes Soft to palpation, No Tenderness to palpation present (GI) and No Guarding due to palpation present (GI) : General: Yes deferred Skin: Wounds: wounds noted (see below ) Extrem: Right lower extremity: hip/thigh Details: normal to inspection, knee Details: normal to inspection; no tenderness and lower leg (Below-knee amputation.) Left lower extremity: hip/thigh Details: normal to inspection, knee Details: abnormal ROM ( range of motion deferred secondary to fracture), ankle (no calf tenderness) Details: normal to inspection, abnormal ROM Details: with range as follows ( Minimal range of motion ankle and hindfoot secondary to fusion); no pain with active ROM and no pain with passive ROM and other ( good capillary refill in toes, 2+ DP pulse, light touch sensation intact); no tenderness ( lateral malleolus, anterior ankle and medial ankle) and no swelling ( moderate anterior ankle, moderate lateral ankle) and foot Details: normal capillary refill, toes with normal ROM, vascular exam Details: dorsalis pedis pulse present and normal capillary refill, tendon exam active flexion normal and active extension normal and motor-sensory exam two point discrimination normal and light-touch normal; no tenderness Other: Lower extremity edema. Right BKA wound VAC dressing in place, functioning well. Surrounding tissue with no signs of infection. Serosanguineous drainage in chamber. No purulence or signs of infection. Psych: Affect: normal affect Objective Data Vital Signs Vital Signs: Vital Signs - 24 hr 11/06/20 12:00 11/06/20 14:00 11/06/20 14:35 Temperature 36.1 C L Pulse Rate 67 68 72 Respiratory Rate 12 20 Blood Pressure 129/68 Pulse Oximetry 95 11/06/20 16:00 11/06/20 18:00 11/06/20 20:00 Temperature 36.9 C 36.6 C Pulse Rate 69 76 75 Respiratory Rate 12 13 Blood Pressure 114/51 L 119/60 Pulse Oximetry 94 100 11/06/20 20:04 11/06/20 20:06 11/06/20 20:14 Temperature Pulse Rate 82 80 Respiratory Rate 22 H 22 H Blood Pressure Pulse Oximetry 92 11/06/20 21:17 11/06/20 21:48 11/06/20 22:00 Temperature Pulse Rate 79 71 62 Respiratory Rate 20 Blood Pressure Pulse Oximetry 96 11/07/20 00:00 11/07/20 02:00 11/07/20 02:46 Temperature 37.1 C Pulse Rate 69 65 69 Respiratory Rate 14 23 H Blood Pressure 119/68 Pulse Oximetry 93 11/07/20 02:58 11/07/20 04:00 11/07/20 06:00 Temperature 36.6 C Pulse Rate 74 64 68 Respiratory Rate 21 H 13 Blood Pressure 122/68 Pulse Oximetry 99 11/07/20 08:00 11/07/20 08:17 11/07/20 08:29 Temperature 36.6 C Pulse Rate 66 82 79 Respiratory Rate 14 24 H 22 H Blood Pressure 127/60 Pulse Oximetry 94 93 93 11/07/20 09:04 Temperature Pulse Rate 84 Respi
--- NOTE | 2020-11-07 10:43 | P.PNNP_ITS ---
Progress Note: A&P Assessment and Plan (1) Chronic kidney disease, stage 4 (severe): Code(s): N18.4 - Chronic kidney disease, stage 4 (severe) Status: Chronic Assessment and Plan: * creatinine is up and down. Her baseline is around 3. * follows with Dr. Pena for CKD management * most likely due to diabetes, hypertension, and vascular disease * the patient has acute kidney injury. * Urine sodium was not low but she is on diuretics. * Repeat ultrasound shows no hydronephrosis * creatinine is higher again To around 5.0. * It could be due to ATN. * Pre renal azotemia is possible as well because of her wide-open nephrotic syndrome. * I talked with the patient that she might need dialysis. She wants to think about this. She wants to let the wound heal first. We discussed that the wound healing will not do very well if she is uremic. She wants to try 1 more day and see if the it will help. (2) Metabolic acidosis: Code(s): E87.2 - Acidosis Status: Acute Assessment and Plan: * improving at this time * CO2 is normal. * The patient had respiratory acidosis as well. * This is somewhat better. * Her says that she snores. Perhaps she has sleep apnea. (3) Septic shock: Code(s): A41.9 - Sepsis, unspecified organism; R65.21 - Severe sepsis with septic shock Status: Acute Assessment and Plan: * resolved (4) Hypertension: Qualifiers: Hypertension type: essential hypertension Qualified Code(s): I10 - Essential (primary) hypertension Code(s): I10 - Essential (primary) hypertension Status: Chronic Assessment and Plan: * blood pressure under good control (5) Anemia: Code(s): D64.9 - Anemia, unspecified Status: Chronic Assessment and Plan: * due to underlying CKD and acute illness * on Epogen * hemoglobin is stable in the 8s (6) Type 2 diabetes mellitus: Qualifiers: Diabetes mellitus intermediate insulin use: without intermediate use Diabetes mellitus complication status: with kidney complications Diabetes mellitus complication detail: with chronic kidney disease Chronic kidney disease stage: stage 4 (severe) Qualified Code(s): E11.22 - Type 2 diabetes mellitus with diabetic chronic kidney disease; N18.4 - Chronic kidney disease, stage 4 (severe) Code(s): E11.9 - Type 2 diabetes mellitus without complications Status: Acute Assessment and Plan: * follow accuchecks * on SSI Subjective Date/time seen: 11/07/20 10:43 Interval history: Rimma is feeling about the same. She is still swollen. Only 270cc of urine yesterday. Exam Narrative: General: WD/WN female in NAD Heart: normal S1 and S2; no rub or gallop Lungs: clear Abdomen: soft, nontender, nondistended, positive bowel sounds Extremities: no cyanosis or clubbing; 1-2+ edema; s/p right BKA Skin: wound vac in place on the right stump Objective Data Vital Signs Vital Signs: Vital Signs - 24 hr 11/06/20 12:00 11/06/20 14:00 11/06/20 14:35 Temperature 36.1 C L Pulse Rate 67 68 72 Respiratory Rate 12 20 Blood Pressure 129/68 Pulse Oximetry 95 11/06/20 16:00 11/06/20 18:00 11/06/20 20:00 Temperature 36.9 C 36.6 C Pulse Rate 69 76 75 Respiratory Rate 12 13 Blood Pressure 114/51 L 119/60
--- NOTE | 2020-11-07 10:43 | PM.PNNEP ---
Progress Note: A&P Assessment and Plan (1) Chronic kidney disease, stage 4 (severe): Code(s): N18.4 - Chronic kidney disease, stage 4 (severe) Status: Chronic Assessment and Plan: creatinine is up and down. Her baseline is around 3. follows with Dr. Pena for CKD management most likely due to diabetes, hypertension, and vascular disease the patient has acute kidney injury. Urine sodium was not low but she is on diuretics. Repeat ultrasound shows no hydronephrosis creatinine is higher again To around 5.0. It could be due to ATN. Pre renal azotemia is possible as well because of her wide-open nephrotic syndrome. I talked with the patient that she might need dialysis. She wants to think about this. She wants to let the wound heal first. We discussed that the wound healing will not do very well if she is uremic. She wants to try 1 more day and see if the it will help. (2) Metabolic acidosis: Code(s): E87.2 - Acidosis Status: Acute Assessment and Plan: improving at this time CO2 is normal. The patient had respiratory acidosis as well. This is somewhat better. Her says that she snores. Perhaps she has sleep apnea. (3) Septic shock: Code(s): A41.9 - Sepsis, unspecified organism; R65.21 - Severe sepsis with septic shock Status: Acute Assessment and Plan: resolved (4) Hypertension: Qualifiers: Hypertension type: essential hypertension Qualified Code(s): I10 - Essential (primary) hypertension Code(s): I10 - Essential (primary) hypertension Status: Chronic Assessment and Plan: blood pressure under good control (5) Anemia: Code(s): D64.9 - Anemia, unspecified Status: Chronic Assessment and Plan: due to underlying CKD and acute illness on Epogen hemoglobin is stable in the 8s (6) Type 2 diabetes mellitus: Qualifiers: Diabetes mellitus rn long term care insulin use: without fci use Diabetes mellitus complication status: with kidney complications Diabetes mellitus complication detail: with chronic kidney disease Chronic kidney disease stage: stage 4 (severe) Qualified Code(s): E11.22 - Type 2 diabetes mellitus with diabetic chronic kidney disease; N18.4 - Chronic kidney disease, stage 4 (severe) Code(s): E11.9 - Type 2 diabetes mellitus without complications Status: Acute Assessment and Plan: follow accuchecks on SSI Subjective Date/time seen: 11/07/20 10:43 Interval history: Rimma is feeling about the same. She is still swollen. Only 270cc of urine yesterday. Exam Narrative: General: WD/WN female in NAD Heart: normal S1 and S2; no rub or gallop Lungs: clear Abdomen: soft, nontender, nondistended, positive bowel sounds Extremities: no cyanosis or clubbing; 1-2+ edema; s/p right BKA Skin: wound vac in place on the right stump Objective Data Vital Signs Vital Signs: Vital Signs - 24 hr 11/06/20 12:00 11/06/20 14:00 11/06/20 14:35 Temperature 36.1 C L Pulse Rate 67 68 72 Respiratory Rate 12 20 Blood Pressure 129/68 Pulse Oximetry 95 11/06/20 16:00 11/06/20 18:00 11/06/20 20:00 Temperature 36.9 C 36.6 C Pulse Rate 69 76 75 Respiratory Rate 12 13 Blood Pressure 114/51 L 119/60 Pulse Oximetry 94 100 11/06/20 20:04 11/06/20 20:06 11/06/20 20:14 Temperature Pulse Rate 82 80 Respiratory Rate 22 H 22 H Blood Pressure Pulse Oximetry 92 11/06/20 21:17 11/06/20 21:48 11/06/20 22:00 Temperature Pulse Rate 79 71 62 Respiratory Rate 20 Blood Pressure Pulse Oximetry 96 11/07/20 00:00 11/07/20 02:00 11/07/20 02:46 Temperature 37.1 C Pulse Rate 69 65 69 Respiratory Rate 14 23 H Blood Pressure 119/68 Pulse Oximetry 93 11/07/20 02:58 11/07/20 04:00 11/07/20 06:00 Temperature 36.6 C Pulse Rate 74 64 68 Respiratory Rate 21 H
[2020-11-07 11:22] LABS: Glucose Point of Care 105 mg/dl (65-105)
[2020-11-07 16:33] LABS: Glucose Point of Care 84 mg/dl (65-105)
--- NOTE | 2020-11-07 18:16 | PM.IMPN ---
Progress Note: A&P Assessment and Plan (1) Acute on chronic respiratory failure with hypoxia and hypercapnia: Code(s): J96.21 - Acute and chronic respiratory failure with hypoxia; J96.22 - Acute and chronic respiratory failure with hypercapnia Status: Resolved Assessment and Plan: Resolved; presented with respiratory acidosis and increased lethargy requiring intubation. Patient extubated and was reintubated on likely secondary to an episode of aspiration pneumonitis/pneumonia versus hypercarbia. she was extubated 10/30 current saturating well on nasal cannula incentive spirometry continuing Unasyn for 7 days until 11/05/20 This has reoccurred again ABG this morning with pH of 7.06 with pCO2 of 88 will initiate BiPAP and repeat ABG and monitor Chest x-ray with increased congestion or give another dose of Lasix [address] her back on [place] catheter 11/06/2020 patient is still requiring BiPAP will continue current treatment. Repeat chest x-ray. Continue antibiotics. 11/07/20 18:16 this 5-year-old female status post right [id number] amputation with delayed healing initially presented acute on chronic respiratory failure hypoxic hypercapnia was intubated in ICU now resolved still requiring BiPAP, patient acute on chronic kidney disease seen by nephrology kidney function is improving, patient seen by surgery service right knee stump is healing and wound VAC is placed, patient is participating appropriate therapy, patient remains clinically stable seen by surgery service and Nephrology and further recommendation to follow and appreciate. (2) Infection of right below knee amputation: Code(s): T87.43 - Infection of amputation stump, right lower extremity Status: Acute Assessment and Plan: S/p debridement and wound vac placement on 10/20; Ortho and ID following. wound covered vac looks to be improving continue orthopedic follow-up. Wound VAC dressing change per orthopedics Abx She is currently on Unasyn for aspiration pneumonitis /pneumonia. She was on cefepime, Flagyl, vancomycin and p.o. vancomycin earlier which has been stopped after she had received it for 11-12 days while p.o. vancomycin for 14 days. Infectious disease service is following. WBC is better. will continue with IV antibiotics. (3) UTI (urinary tract infection): Qualifiers: Hematuria presence: without hematuria Urinary tract infection type: acute cystitis Qualified Code(s): N30.00 - Acute cystitis without hematuria Code(s): N39.0 - Urinary tract infection, site not specified Status: Acute Assessment and Plan: Resolved. She was on cefepime, Flagyl and vancomycin earlier but now currently on Unasyn. she had received all these antibiotic for 11-12 days. She has finished a course of p.o. vancomycin for C diff colitis. Her blood culture grew coagulase negative Staphylococcus likely contaminant. repeat blood cultures are pending Urine culture grew E coli and Pseudomonas aeruginosa. Pseudomonas aeruginosa was pretty pansensitive Including cefepime. E coli was sensitive to cefepime as well. 11/06/2020 Will continue with IV antibiotics. ID following (4) Septic shock: Code(s): A41.9 - Sepsis, unspecified organism; R65.21 - Severe sepsis with septic shock Status: Acute Assessment and Plan: Resolved. Off pressors since 10/14. (5) C. difficile colitis: Code(s): A04.72 - Enterocolitis due to Clostridium difficile, not specified as recurrent Status: Acute Assessment and Plan: Completed the course of p.o. vancomycin for 14 days. (6) Acute renal failure superimposed on stage 4 chronic kidney disease: Qualifiers: Acute renal failure type: unspecified Qualified Code(s): N17.9 - Acute kidney failure, unspecified; N18.4 - Chronic kidney disease, stage 4 (severe) Code(s): N17.9 - Acute kidney failure
--- NOTE | 2020-11-07 20:33 | PC.NURSE ---
patient transferred to [address] [place] [address]. aroldo telles made aware of patient.
[2020-11-07] MEDS: ATORVASTATIN 40 MG TABLET PO (20:54)
[2020-11-07 23:22] LABS: Histone Antibody <1.0 U (<1.0)
[2020-11-08] VITALS (17 sets, daily range): BP systolic 119–150; BP diastolic 45–59; PULSE 64–89; RESP 18–22; TEMP 36–36.7; O2SAT 94–100
[2020-11-08] MEDS: ALBUTEROL SULFATE NEB 2.5 MG/0.5 ML INH INHALATION ×4 (03:09→20:23)
[2020-11-08] MEDS: IPRATROPIUM BR 0.02% INH SOLN 0.5 MG/2.5 ML VIAL INHALATION ×4 (03:09→20:22)
[2020-11-08] MEDS: AMPICILLIN SULB 1.5 GM/NS 50ML 1.5 GM/50 ML VIAL IVPB ×2 (06:03→16:42)
[2020-11-08] MEDS: LEVOTHYROXINE SODIUM 25 MCG TABLET PO (06:04)
--- NOTE | 2020-11-08 07:53 | PM.PNORT ---
Progress Note: A&P Assessment and Plan (1) Delayed surgical wound healing of [id number]-[id number] amputation stump: Code(s): T87.89 - Other complications of amputation stump; T81.89XA - Other complications of procedures, not elsewhere classified, initial encounter Status: Acute Assessment and Plan: Wound VAC dressing changed today. Wound improved, suture removed. Surrounding tissue with no signs of infection. No new necrosis. Notable new granulation tissue. No knee pain, good ROM. Will continue wound VAC dressing changes three times weekly. Continue nutritional supplement. Will continue to follow. Subjective Subjective Date/Time Seen: 11/08/20 07:53 Post Op day: 6 weeks Principal diagnosis: RT BKA Interval history: Pt awake. no new c/o. Exam Const: General: cooperative, comfortable, no acute distress and awake Nutritional Appearance: obese HENMT: Head: normal to inspection, normocephalic and atraumatic Eyes: Conjunctivae: conjunctivae normal Sclera: sclerae normal Neck: Neck: supple and nontender Resp: Other: on nasal cannula O2 GI: Inspection: non-distended GI Palp: Yes Soft to palpation, No Tenderness to palpation present (GI) and No Guarding due to palpation present (GI) : General: Yes deferred Skin: Wounds: wounds noted (see below ) Extrem: Right lower extremity: hip/thigh Details: normal to inspection, knee Details: normal to inspection; no tenderness and lower leg (Below-knee amputation.) Left lower extremity: hip/thigh Details: normal to inspection, knee Details: abnormal ROM ( range of motion deferred secondary to fracture), ankle (no calf tenderness) Details: normal to inspection, abnormal ROM Details: with range as follows ( Minimal range of motion ankle and hindfoot secondary to fusion); no pain with active ROM and no pain with passive ROM and other ( good capillary refill in toes, 2+ DP pulse, light touch sensation intact); no tenderness ( lateral malleolus, anterior ankle and medial ankle) and no swelling ( moderate anterior ankle, moderate lateral ankle) and foot Details: normal capillary refill, toes with normal ROM, vascular exam Details: dorsalis pedis pulse present and normal capillary refill, tendon exam active flexion normal and active extension normal and motor-sensory exam two point discrimination normal and light-touch normal; no tenderness Other: Lower extremity edema. Right BKA wound VAC dressing in place, functioning well. Surrounding tissue with no signs of infection. Serosanguineous drainage in chamber. No purulence or signs of infection. wound approx 7X16cm, improving. Psych: Affect: normal affect Objective Data Vital Signs Vital Signs: Vital Signs - 24 hr 11/07/20 08:00 11/07/20 08:17 11/07/20 08:29 Temperature 98 F Pulse Rate 79 82 79 Respiratory Rate 14 24 H 22 H Blood Pressure 127/60 Pulse Oximetry 94 93 93 11/07/20 09:04 11/07/20 10:00 11/07/20 12:00 Temperature 98.3 F Pulse Rate 84 77 75 Respiratory Rate 14 Blood Pressure 135/51 L Pulse Oximetry 100 11/07/20 14:41 11/07/20 14:49 11/07/20 16:00 Temperature 97.7 F Pulse Rate 74 73 74 Respiratory Rate 20 20 14 Blood Pressure 131/54 L Pulse Oximetry 95 11/07/20 20:00 11/07/20 20:54 11/07/20 22:00 Temperature 98.2 F Pulse Rate 79 72 79 Respiratory Rate 20 20 Blood Pressure 124/82 Pulse Oximetry 97 97 11/07/20 23:48 11/07/20 23:58 11/08/20 03:10 Temperature Pulse Rate 66 70 67 Respiratory Rate 18 22 H 20 Blood Pressure Pulse Oximetry 95 95 11/08/20 03:11 11/08/20 03:20 11/08/20 06:00 Temperature 98.1 F Pulse Rate 66 71 64 Respiratory Rate 20 20 20 Blood Pressure 119/45 L Pulse Oximetry 94 96 Intake/Output Intake/Output: Intake & Output 11/05/20 11/06/20 11/07/20 11/08/20 23:59 23:59 23:59 23:59 Intake Total 473 411 5898 400 Output Total 225 270 950 500 Balance 25 120 320 -100 Meds/Results Medications: Active Medications
--- NOTE | 2020-11-08 08:19 | P.PNNP_ITS ---
Progress Note: A&P Assessment and Plan (1) Chronic kidney disease, stage 4 (severe): Code(s): N18.4 - Chronic kidney disease, stage 4 (severe) Status: Chronic Assessment and Plan: * creatinine is up and down. Her baseline is around 3. * follows with Dr. Pena for CKD management * most likely due to diabetes, hypertension, and vascular disease * the patient has acute kidney injury. * Urine sodium was not low but she is on diuretics. * Repeat ultrasound shows no hydronephrosis * creatinine is pending for today * It could be due to ATN. * Pre renal azotemia is possible as well because of her wide-open nephrotic syndrome. * this may just be progression of kidney disease. * Will see how labs are today and decide where to go from there. (2) Metabolic acidosis: Code(s): E87.2 - Acidosis Status: Acute Assessment and Plan: * improving at this time * CO2 is normal. * The patient had respiratory acidosis as well. * This is somewhat better. * Her says that she snores. Perhaps she has sleep apnea. (3) Septic shock: Code(s): A41.9 - Sepsis, unspecified organism; R65.21 - Severe sepsis with septic shock Status: Acute Assessment and Plan: * resolved (4) Hypertension: Qualifiers: Hypertension type: essential hypertension Qualified Code(s): I10 - Essential (primary) hypertension Code(s): I10 - Essential (primary) hypertension Status: Chronic Assessment and Plan: * blood pressure under good control (5) Anemia: Code(s): D64.9 - Anemia, unspecified Status: Chronic Assessment and Plan: * due to underlying CKD and acute illness * on Epogen * hemoglobin is stable in the 8s (6) Type 2 diabetes mellitus: Qualifiers: Diabetes mellitus halfway insulin use: without halfway use Diabetes mellitus complication status: with kidney complications Diabetes mellitus complication detail: with chronic kidney disease Chronic kidney disease stage: stage 4 (severe) Qualified Code(s): E11.22 - Type 2 diabetes mellitus with diabetic chronic kidney disease; N18.4 - Chronic kidney disease, stage 4 (severe) Code(s): E11.9 - Type 2 diabetes mellitus without complications Status: Acute Assessment and Plan: * follow accuchecks * on SSI Subjective Date/time seen: 11/08/20 08:19 Interval history: Rimma is feeling about the same. She is still swollen. Made a little more urine yesterday. She is not short of breath. No nausea. Exam Narrative: General: WD/WN female in NAD Heart: normal S1 and S2; no rub or gallop Lungs: clear bilaterally Abdomen: soft, nontender, nondistended, positive bowel sounds Extremities: no cyanosis or clubbing; 1-2+ edema; s/p right BKA Skin: wound vac in place on the right stump Objective Data Vital Signs Vital Signs: Vital Signs - 24 hr 11/07/20 08:29 11/07/20 09:04 11/07/20 10:00 Temperature Pulse Rate 79 84 77 Respiratory Rate 22 H Blood Pressure Pulse Oximetry 93 11/07/20 12:00 11/07/20 14:41 11/07/20 14:49 Temperature 36.8 C Pulse Rate 75 74 73 Respiratory Rate 14 20 20 Blood Pressure 135/51 L Pulse Oximetry 100 11/07/20 16:00 11/07/20 20:00 11/07/20 20:5
--- NOTE | 2020-11-08 08:19 | PM.PNNEP ---
Progress Note: A&P Assessment and Plan (1) Chronic kidney disease, stage 4 (severe): Code(s): N18.4 - Chronic kidney disease, stage 4 (severe) Status: Chronic Assessment and Plan: creatinine is up and down. Her baseline is around 3. follows with Dr. Pena for CKD management most likely due to diabetes, hypertension, and vascular disease the patient has acute kidney injury. Urine sodium was not low but she is on diuretics. Repeat ultrasound shows no hydronephrosis creatinine is pending for today It could be due to ATN. Pre renal azotemia is possible as well because of her wide-open nephrotic syndrome. this may just be progression of kidney disease. Will see how labs are today and decide where to go from there. (2) Metabolic acidosis: Code(s): E87.2 - Acidosis Status: Acute Assessment and Plan: improving at this time CO2 is normal. The patient had respiratory acidosis as well. This is somewhat better. Her says that she snores. Perhaps she has sleep apnea. (3) Septic shock: Code(s): A41.9 - Sepsis, unspecified organism; R65.21 - Severe sepsis with septic shock Status: Acute Assessment and Plan: resolved (4) Hypertension: Qualifiers: Hypertension type: essential hypertension Qualified Code(s): I10 - Essential (primary) hypertension Code(s): I10 - Essential (primary) hypertension Status: Chronic Assessment and Plan: blood pressure under good control (5) Anemia: Code(s): D64.9 - Anemia, unspecified Status: Chronic Assessment and Plan: due to underlying CKD and acute illness on Epogen hemoglobin is stable in the 8s (6) Type 2 diabetes mellitus: Qualifiers: Diabetes mellitus detention insulin use: without detention use Diabetes mellitus complication status: with kidney complications Diabetes mellitus complication detail: with chronic kidney disease Chronic kidney disease stage: stage 4 (severe) Qualified Code(s): E11.22 - Type 2 diabetes mellitus with diabetic chronic kidney disease; N18.4 - Chronic kidney disease, stage 4 (severe) Code(s): E11.9 - Type 2 diabetes mellitus without complications Status: Acute Assessment and Plan: follow accuchecks on SSI Subjective Date/time seen: 11/08/20 08:19 Interval history: Rimma is feeling about the same. She is still swollen. Made a little more urine yesterday. She is not short of breath. No nausea. Exam Narrative: General: WD/WN female in NAD Heart: normal S1 and S2; no rub or gallop Lungs: clear bilaterally Abdomen: soft, nontender, nondistended, positive bowel sounds Extremities: no cyanosis or clubbing; 1-2+ edema; s/p right BKA Skin: wound vac in place on the right stump Objective Data Vital Signs Vital Signs: Vital Signs - 24 hr 11/07/20 08:29 11/07/20 09:04 11/07/20 10:00 Temperature Pulse Rate 79 84 77 Respiratory Rate 22 H Blood Pressure Pulse Oximetry 93 11/07/20 12:00 11/07/20 14:41 11/07/20 14:49 Temperature 36.8 C Pulse Rate 75 74 73 Respiratory Rate 14 20 20 Blood Pressure 135/51 L Pulse Oximetry 100 11/07/20 16:00 11/07/20 20:00 11/07/20 20:54 Temperature 36.5 C Pulse Rate 74 79 72 Respiratory Rate 14 20 Blood Pressure 131/54 L Pulse Oximetry 95 97 11/07/20 22:00 11/07/20 23:48 11/07/20 23:58 Temperature 36.8 C Pulse Rate 79 66 70 Respiratory Rate 20 18 22 H Blood Pressure 124/82 Pulse Oximetry 97 95 95 11/08/20 03:10 11/08/20 03:11 11/08/20 03:20 Temperature Pulse Rate 67 66 71 Respiratory Rate 20 20 20 Blood Pressure Pulse Oximetry 94 11/08/20 06:00 11/08/20 07:40 Temperature 36.7 C Pulse Rate 64 Respiratory Rate 20 Blood Pressure 119/45 L Pulse Oximetry 96 96 Intake/Output Intake/Output: Intake & Output 11/05/20 11/06/20
[2020-11-08 08:21] LABS: Glucose Point of Care 82 mg/dl (65-105)
[2020-11-08] MEDS: DOCUSATE SODIUM 100 MG CAPSULE PO ×2 (08:31→16:41)
[2020-11-08] MEDS: ASPIRIN 81 MG ENTERIC TABLET PO (08:31)
[2020-11-08] MEDS: FUROSEMIDE INJ 100 MG/10 ML VIAL 80 MG IV PUSH ×2 (08:31→16:41)
[2020-11-08] MEDS: HEPARIN SODIUM 5,000 UNITS/ML VIAL 5000 UNITS SUB-Q ×2 (08:31→20:31)
[2020-11-08] MEDS: FERROUS SULFATE 324 MG TABLET PO (08:31)
[2020-11-08] MEDS: PANTOPRAZOLE SODIUM IV 40 MG VIAL IV PUSH (08:32)
[2020-11-08] MEDS: metOLazone 5 MG TABLET PO (08:32)
[2020-11-08] MEDS: TOLNAFTATE 1% POWDER 45 GM BTL 1 APPLIC TOPICAL ×2 (08:32→20:31)
[2020-11-08] MEDS: METOPROLOL TARTRATE 50 MG TAB 100 MG PO ×2 (08:32→20:30)
[2020-11-08 09:09] LABS: Basophils Absolute Auto 0.1 K/mm3 (0.0-0.1); Basophils Percent Auto 0.6 % (0.2-1.2); Eosinophils Absolute Auto 0.1 K/mm3 (0-0.3); Eosinophils Percent Auto 0.5 % (0-4.4); Hematocrit 32.3 % (37.0-47.0); Hemoglobin 9.4 g/dL (12.0-15.0); Immature Granulocyte Absolute 0.29 K/mm3 (0.00-0.031); Immature Granulocyte Percent A 2.3 % (0-0.5); Lymphocytes Percent Auto 6.5 % (18.3-44.2); Mean Corpuscular HGB Conc 29.1 g/dl (32-36); Mean Corpuscular Hemoglobin 28.7 pg (26-34); Mean Corpuscular Volume 98.5 fl (80-100); Mean Platelet Volume 10.7 fl (7.4-10.4); Monocytes Absolute Auto 1.2 K/mm3 (0.1-0.6); Monocytes Percent Auto 9.7 % (2.6-8.5); Neutrophils Absolute Auto 9.9 K/mm3 (1.3-6.7); Neutrophils Percent Auto 80.4 % (45.5-73.1); Nucleated Red Blood Cells Perc 0.2 % (0.0-0.2); Platelet Count Result 216 k/mm3 (150-375); Red Blood Count 3.28 M/mm3 (4.2-5.4); Red Cell Distribution Width 17.6 % (11.5-14.5); White Blood Count 12.4 K/mm3 (4.5-10.0)
[2020-11-08 09:17] LABS: Albumin Level 2.8 g/dL (3.5-5.1); Anion Gap 14 mmol/L (8-16); Blood Urea Nitrogen 81 mg/dL (7-17); Calcium 8.1 mg/dL (8.4-10.2); Carbon Dioxide 19 mmol/L (22-30); Chloride 103 mmol/L (98-107); Estimated CRCL calculation 13 ml/min; Estimated Glomerular Filt Rate 8; Glucose 96 mg/dL (65-110); Phosphorus 5.8 mg/dL (2.5-4.5); Potassium 4.6 mmol/L (3.4-5.0); Sodium 136 mmol/L (137-145)
[2020-11-08 09:51] LABS: Platelet Estimate Adequate (Adequate)
[2020-11-08 09:52] LABS: Acanthocytes 1+ (NORMAL); Hypochromasia 1+ (NORMAL)
[2020-11-08 09:53] LABS: Ovalocytes 1+ (NORMAL)
[2020-11-08 11:54] LABS: Glucose Point of Care 102 mg/dl (65-105)
[2020-11-08] MEDS: EPOETIN ALFA-EPBX 10,000 UNITS/ML VIAL 10000 UNITS SUB-Q (12:08)
--- NOTE | 2020-11-08 14:26 | PCDIET ---
Nutrition Follow-Up Complete: Nutrition Diagnosis: Inadequate oral intake related to oral intubation/mechanical ventilation as evidenced by NPO status. Nutrition Goal: Patient to meet estimated nutritional needs. Goal met. Patient consuming 75-100% of most meals on diabetic diet. Receiving Ensure Surgery (330kcal, 18g protein) twice daily and reports taking it consistently. Last recorded weight is 127 kg which is down from last review. Bowel Motility: Last documented BM on 11/04/20 x 2. Labs Reviewed: WBC (12.4), RBC (3.28), Hgb (9.4), Hct (32.3), BUN (81), Cr (5.1), PO4 (5.8), Gwendolyn Ca (9.06) Meds Noted: Albuterol, Unasyn, Lipitor, Colace, Retacrit, Ferrous Sulfate, Lasix, Heparin, Atrovent, Synthroid, Zaroxolyn, Lopressor, Protonix Additional Notes: Right leg with wound vac. Documented maceration to abdomen. Will continue to monitor with same goal. Nutrition Monitoring and Evaluation: Follow up every 5 days.
[2020-11-08 15:34] LABS: Complement Total CH50 47 U/mL (31-60)
[2020-11-08 17:04] LABS: Glucose Point of Care 117 mg/dl (65-105)
[2020-11-08] MEDS: ATORVASTATIN 40 MG TABLET PO (20:30)
[2020-11-08 21:04] LABS: Glucose Point of Care 130 mg/dl (65-105)
[2020-11-09] VITALS (18 sets, daily range): BP systolic 147–168; BP diastolic 57–63; PULSE 72–86; RESP 16–21; TEMP 35.9–37.1; O2SAT 92–100; BMI 10.0
[2020-11-09] MEDS: ALBUTEROL SULFATE NEB 2.5 MG/0.5 ML INH INHALATION ×4 (02:30→20:13)
[2020-11-09] MEDS: IPRATROPIUM BR 0.02% INH SOLN 0.5 MG/2.5 ML VIAL INHALATION ×4 (02:30→20:13)
[2020-11-09] MEDS: AMPICILLIN SULB 1.5 GM/NS 50ML 1.5 GM/50 ML VIAL IVPB ×2 (05:18→17:16)
[2020-11-09] MEDS: LEVOTHYROXINE SODIUM 25 MCG TABLET PO (06:25)
[2020-11-09 07:00] LABS: Albumin Level 2.3 g/dL (3.5-5.1); Anion Gap 11 mmol/L (8-16); Blood Urea Nitrogen 82 mg/dL (7-17); Calcium 7.7 mg/dL (8.4-10.2); Carbon Dioxide 21 mmol/L (22-30); Chloride 104 mmol/L (98-107); Estimated CRCL calculation 12 ml/min; Estimated Glomerular Filt Rate 8; Glucose 88 mg/dL (65-110); Phosphorus 5.9 mg/dL (2.5-4.5); Potassium 4.1 mmol/L (3.4-5.0); Sodium 136 mmol/L (137-145)
[2020-11-09 07:39] LABS: Basophils Percent Auto 0.4 % (0.2-1.2); Eosinophils Absolute Auto 0.1 K/mm3 (0-0.3); Eosinophils Percent Auto 0.9 % (0-4.4); Hematocrit 28.3 % (37.0-47.0); Hemoglobin 8.2 g/dL (12.0-15.0); Immature Granulocyte Absolute 0.22 K/mm3 (0.00-0.031); Immature Granulocyte Percent A 2.4 % (0-0.5); Lymphocytes Absolute Auto 0.68 K/mm3 (0.9-3.2); Lymphocytes Percent Auto 7.3 % (18.3-44.2); Mean Corpuscular Hemoglobin 28.5 pg (26-34); Mean Corpuscular Volume 98.3 fl (80-100); Mean Platelet Volume 10.7 fl (7.4-10.4); Neutrophils Absolute Auto 7.3 K/mm3 (1.3-6.7); Platelet Count Result 228 k/mm3 (150-375); Red Blood Count 2.88 M/mm3 (4.2-5.4); Red Cell Distribution Width 17.9 % (11.5-14.5); White Blood Count 9.4 K/mm3 (4.5-10.0)
[2020-11-09 07:44] LABS: Glucose Point of Care 84 mg/dl (65-105)
--- NOTE | 2020-11-09 10:00 | PM.PNORT ---
Progress Note: A&P Assessment and Plan (1) Delayed surgical wound healing of [id number]-[id number] amputation stump: Code(s): T87.89 - Other complications of amputation stump; T81.89XA - Other complications of procedures, not elsewhere classified, initial encounter Status: Acute Assessment and Plan: Wound VAC dressing intact. Functioning well. Serous drainage in chamber. Surrounding tissue without redness, warmth or signs of infection. No new necrosis noted. Continue nutritional support. Will plan for wound VAC dressing change tomorrow. Will continue to follow. Subjective Subjective Date/Time Seen: 11/09/20 10:00 No new concerns today. She does report feeling generally tired. Happy with the progress of her BKA wound. Review of Systems Review of Systems: All systems reviewed & are unremarkable except as noted in HPI and below Exam Const: General: cooperative, comfortable, no acute distress and awake Nutritional Appearance: obese HENMT: Head: normal to inspection, normocephalic and atraumatic Eyes: Conjunctivae: conjunctivae normal Sclera: sclerae normal Neck: Neck: supple and nontender Resp: Other: on nasal cannula O2 GI: Inspection: non-distended GI Palp: Yes Soft to palpation, No Tenderness to palpation present (GI) and No Guarding due to palpation present (GI) : General: Yes deferred Skin: Wounds: wounds noted (see below ) Extrem: Right lower extremity: hip/thigh Details: normal to inspection, knee Details: normal to inspection; no tenderness and lower leg (Below-knee amputation.) Left lower extremity: hip/thigh Details: normal to inspection, knee Details: abnormal ROM ( range of motion deferred secondary to fracture), ankle (no calf tenderness) Details: normal to inspection, abnormal ROM Details: with range as follows ( Minimal range of motion ankle and hindfoot secondary to fusion); no pain with active ROM and no pain with passive ROM and other ( good capillary refill in toes, 2+ DP pulse, light touch sensation intact); no tenderness ( lateral malleolus, anterior ankle and medial ankle) and no swelling ( moderate anterior ankle, moderate lateral ankle) and foot Details: normal capillary refill, toes with normal ROM, vascular exam Details: dorsalis pedis pulse present and normal capillary refill, tendon exam active flexion normal and active extension normal and motor-sensory exam two point discrimination normal and light-touch normal; no tenderness Other: Lower extremity edema. Right BKA wound VAC dressing in place, functioning well. Surrounding tissue with no signs of infection. Serosanguineous drainage in chamber. No purulence or signs of infection. wound approx 7X16cm, improving. Psych: Affect: normal affect Objective Data Vital Signs Vital Signs: Vital Signs - 24 hr 11/08/20 14:11 11/08/20 15:25 11/08/20 15:34 Temperature 36.4 C Pulse Rate 77 75 76 Respiratory Rate 18 20 20 Blood Pressure 150/59 H Pulse Oximetry 100 11/08/20 20:00 11/08/20 20:23 11/08/20 20:27 Temperature 36.0 C L Pulse Rate 76 76 79 Respiratory Rate 20 18 20 Blood Pressure 145/59 H Pulse Oximetry 96 96 97 11/08/20 20:30 11/08/20 20:36 11/08/20 20:42 Temperature Pulse Rate 79 76 76 Respiratory Rate 18 20 Blood Pressure Pulse Oximetry 96 11/09/20 02:37 11/09/20 02:45 11/09/20 06:07 Temperature 35.9 C L Pulse Rate 76 76 72 Respiratory Rate 21 H 20 18 Blood Pressure 147/57 H Pulse Oximetry 95 98 11/09/20 06:08 11/09/20 06:16 Temperature Pulse Rate 78 80 Respiratory Rate 20 16 Blood Pressure Pulse Oximetry 99 Intake/Output Intake/Output: Intake & Output 11/06/20 11/07/20 11/08/20 11/09/20 23:59 23:59 23:59 23:59 Intake Total 390 1270 1600 440 Output Total 592 014 8489 750 Balance 120 320 350 -310 Meds/Results Medications: Active Medications Generic Name Dose Route Start Last Admin Trade Name Freq PRN Reason Stop Dose Admin Acetaminophen
[2020-11-09] MEDS: metOLazone 5 MG TABLET PO (10:30)
[2020-11-09] MEDS: FERROUS SULFATE 324 MG TABLET PO (10:31)
[2020-11-09] MEDS: DOCUSATE SODIUM 100 MG CAPSULE PO ×2 (10:31→17:19)
[2020-11-09] MEDS: FUROSEMIDE INJ 100 MG/10 ML VIAL 80 MG IV PUSH ×2 (10:31→17:17)
[2020-11-09] MEDS: METOPROLOL TARTRATE 50 MG TAB 100 MG PO ×2 (10:31→20:17)
[2020-11-09] MEDS: PANTOPRAZOLE SODIUM IV 40 MG VIAL IV PUSH (10:31)
[2020-11-09] MEDS: ASPIRIN 81 MG ENTERIC TABLET PO (10:33)
[2020-11-09] MEDS: HEPARIN SODIUM 5,000 UNITS/ML VIAL 5000 UNITS SUB-Q ×2 (10:35→20:17)
[2020-11-09 12:20] LABS: Glucose Point of Care 97 mg/dl (65-105)
--- NOTE | 2020-11-09 14:39 | P.PNNP_ITS ---
Progress Note: A&P Assessment and Plan (1) Chronic kidney disease, stage 4 (severe): Code(s): N18.4 - Chronic kidney disease, stage 4 (severe) Status: Chronic Assessment and Plan: * creatinine is up and down. Her baseline is around 3. * follows with Dr. Pena for CKD management * most likely due to diabetes, hypertension, and vascular disease * the patient has acute kidney injury on top of CKD. * Urine sodium was not low but she is on diuretics. * Repeat ultrasound shows no hydronephrosis * her creatinine continues to rise. * Urine output is just fair. * She is still very swollen * I think we need to start dialysis. I suspect that her chronic kidney disease has caught up with her. * There is a small possibility that this might be temporary but I think it is more likely that this is going to be permanent. * I talked with the patient at length. She is worried because she was going to be discharged tomorrow. I fear that if she goes home she will just come back sicker because her renal function continues to worsen regardless of whatever we do. She wants to wait until after her wound is healed to start dialysis. I told her that most likely her wound healing will be slowed down b ecause of the kidney disease and if this progresses at the same rate it has in last few days then she will be severely ill from her kidney poisons within a week or so. All this would just slow down her wound healing anyway. * I discussed the risks benefits alternatives in the process of dialysis. She understands and wishes to proceed. * Will have case management set her up at [facility]. Dr. Red will take care of her there. * (2) Metabolic acidosis: Code(s): E87.2 - Acidosis Status: Acute Assessment and Plan: * improving at this time * CO2 is Slightly low at 21. This is not unexpected because of the progressive kidney disease. * The patient had respiratory acidosis as well. * This is somewhat better. (3) Septic shock: Code(s): A41.9 - Sepsis, unspecified organism; R65.21 - Severe sepsis with septic shock Status: Acute Assessment and Plan: * resolved (4) Hypertension: Qualifiers: Hypertension type: essential hypertension Qualified Code(s): I10 - Essential (primary) hypertension Code(s): I10 - Essential (primary) hypertension Status: Chronic Assessment and Plan: * blood pressure under good control (5) Anemia: Code(s): D64.9 - Anemia, unspecified Status: Chronic Assessment and Plan: * due to underlying CKD and acute illness * on Epogen * hemoglobin is stable in the 8s * Will repeat a reticulocyte count. It was only 1.5 1 month ago (6) Type 2 diabetes mellitus: Qualifiers: Diabetes mellitus correction insulin use: without long term care administrator use Diabetes mellitus complication status: with kidney complications Diabetes mellitus complication detail: with chronic kidney disease Chronic kidney disease stage: stage 4 (severe) Qualified Code(s): E11.22 - Type 2 diabetes mellitus with diabetic chronic kidney disease; N18.4 - Chronic kidney disease, stage 4 (severe) Code(s): E11.9 - Type 2 diabetes mellitus without complications Status: Acute Assessment and Plan: * follow accuchecks * on SSI Subjective Date/time seen: 11/09/20 14:39 Interval history: Rimma is feeling about the same. sitting up in a chair. No chest pain or shortness of breath. Still very swollen
--- NOTE | 2020-11-09 14:39 | PM.PNNEP ---
Progress Note: A&P Assessment and Plan (1) Chronic kidney disease, stage 4 (severe): Code(s): N18.4 - Chronic kidney disease, stage 4 (severe) Status: Chronic Assessment and Plan: creatinine is up and down. Her baseline is around 3. follows with Dr. Pena for CKD management most likely due to diabetes, hypertension, and vascular disease the patient has acute kidney injury on top of CKD. Urine sodium was not low but she is on diuretics. Repeat ultrasound shows no hydronephrosis her creatinine continues to rise. Urine output is just fair. She is still very swollen I think we need to start dialysis. I suspect that her chronic kidney disease has caught up with her. There is a small possibility that this might be temporary but I think it is more likely that this is going to be permanent. I talked with the patient at length. She is worried because she was going to be discharged tomorrow. I fear that if she goes home she will just come back sicker because her renal function continues to worsen regardless of whatever we do. She wants to wait until after her wound is healed to start dialysis. I told her that most likely her wound healing will be slowed down because of the kidney disease and if this progresses at the same rate it has in last few days then she will be severely ill from her kidney poisons within a week or so. All this would just slow down her wound healing anyway. I discussed the risks benefits alternatives in the process of dialysis. She understands and wishes to proceed. Will have case management set her up at [facility]. Dr. Red will take care of her there. (2) Metabolic acidosis: Code(s): E87.2 - Acidosis Status: Acute Assessment and Plan: improving at this time CO2 is Slightly low at 21. This is not unexpected because of the progressive kidney disease. The patient had respiratory acidosis as well. This is somewhat better. (3) Septic shock: Code(s): A41.9 - Sepsis, unspecified organism; R65.21 - Severe sepsis with septic shock Status: Acute Assessment and Plan: resolved (4) Hypertension: Qualifiers: Hypertension type: essential hypertension Qualified Code(s): I10 - Essential (primary) hypertension Code(s): I10 - Essential (primary) hypertension Status: Chronic Assessment and Plan: blood pressure under good control (5) Anemia: Code(s): D64.9 - Anemia, unspecified Status: Chronic Assessment and Plan: due to underlying CKD and acute illness on Epogen hemoglobin is stable in the 8s Will repeat a reticulocyte count. 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 sitting up in a chair. No chest pain or shortness of breath. Still very swollen Exam Narrative: General: WD/WN female in NAD Heart: normal S1 and S2; no rub or gallop Lungs: clear to auscultation Abdomen: soft, nontender, nondistended, positive bowel sounds Extremities: no cyanosis or clubbing; 1-2+ edema; s/p right BKA Skin: wound vac in place on the right stump Objective Data Vital Signs Vital Signs: Vital Signs - 24 hr 11/08/20 15:25 11/08/20 15:34 11/08/20 20:00 Temperature P
[2020-11-09] MEDS: hydrALAZINE HCL 20 MG/ML VIAL 10 MG IV PUSH (14:51)
--- NOTE | 2020-11-09 15:39 | P.PNIM_ITS ---
Progress Note: A&P Assessment and Plan (1) Acute on chronic respiratory failure with hypoxia and hypercapnia: Code(s): J96.21 - Acute and chronic respiratory failure with hypoxia; J96.22 - Acute and chronic respiratory failure with hypercapnia Status: Resolved Assessment and Plan: Resolved; presented with respiratory acidosis and increased lethargy requiring intubation. Patient extubated and was reintubated on likely secondary to an episode of aspiration pneumonitis/pneumonia versus hypercarbia. she was extubated 10/30 current saturating well on nasal cannula incentive spirometry continuing Unasyn for 7 days until 11/05/20 This has reoccurred again ABG this morning with pH of 7.06 with pCO2 of 88 will initiate BiPAP and repeat ABG and monitor Chest x-ray with increased congestion or give another dose of Lasix [address] her back on [place] catheter 11/06/2020 patient is still requiring BiPAP will continue current treatment. Repeat chest x-ray. Continue antibiotics. 11/07/20 18:16 this 5-year-old female status post right sbfja-veg-amps amputation with delayed healing initially presented acute on chronic respiratory failure hypoxic hypercapnia was intubated in ICU now resolved still requiring BiPAP, patient acute on chronic kidney disease seen by nephrology kidney function is improving, patient seen by surgery service right knee stump is healing and wound VAC is placed, patient is participating appropriate therapy, patient remains clinically stable seen by surgery service and Nephrology and further recommendation to follow and appreciate. (2) Infection of right below knee amputation: Code(s): T87.43 - Infection of amputation stump, right lower extremity Status: Acute Assessment and Plan: S/p debridement and wound vac placement on 10/20; Ortho and ID following. wound covered vac looks to be improving * continue orthopedic follow-up. Wound VAC dressing change per orthopedics * Abx She is currently on Unasyn for aspiration pneumonitis /pneumonia. She was on cefepime, Flagyl, vancomycin and p.o. vancomycin earlier which has been stopped after she had received it for 11-12 days while p.o. vancomycin for 14 days. * Infectious disease service is following. WBC is better. will continue with IV antibiotics. (3) UTI (urinary tract infection): Qualifiers: Hematuria presence: without hematuria Urinary tract infection type: acute cystitis Qualified Code(s): N30.00 - Acute cystitis without hematuria Code(s): N39.0 - Urinary tract infection, site not specified Status: Acute Assessment and Plan: Resolved. She was on cefepime, Flagyl and vancomycin earlier but now currently on Unasyn. she had received all these antibiotic for 11-12 days. She has finished a course of p.o. vancomycin for C diff colitis. Her blood culture grew coagulase negative Staphylococcus likely contaminant. repeat blood cultures are pending Urine culture grew E coli and Pseudomonas aeruginosa. Pseudomonas aeruginosa was pretty pansensitive Including cefepime. E coli was sensitive to cefepime as well. 11/06/2020 Will continue with IV antibiotics. ID following (4) Septic shock: Code(s): A41.9 - Sepsis, unspecified organism; R65.21 - Severe sepsis with septic shock Status: Acute Assessment and Plan: Resolved. Off pressors since 10/14. (5) C. difficile colitis: Code(s): A04.72 - Enterocolitis due to Clostridium difficile, not specified as recurrent Status: Acute Assessment and Plan: Completed the course of p.o. v
--- NOTE | 2020-11-09 16:11 | PM.CNGS ---
Assessment and Plan Assessment and plan (1) Acute renal failure superimposed on stage 4 chronic kidney disease: Qualifiers: Acute renal failure type: unspecified Qualified Code(s): N17.9 - Acute kidney failure, unspecified; N18.4 - Chronic kidney disease, stage 4 (severe) Code(s): N17.9 - Acute kidney failure, unspecified; N18.4 - Chronic kidney disease, stage 4 (severe) Status: Acute Assessment and Plan: Worsening chronic renal failure. Nephrology following and asked us to place a tunnelled dialysis catheter. Discussed the procedure, risks, benefits, and possible complications with the patient. She wishes to proceed. She will be added onto the surgery schedule for tomorrow with Dr. Ayala. NPO after midnight. (2) Acute respiratory failure: Code(s): J96.00 - Acute respiratory failure, unspecified whether with hypoxia or hypercapnia Status: Acute (3) Hypotension: Code(s): I95.9 - Hypotension, unspecified Status: Acute (4) Hx of right BKA: Code(s): Z89.511 - Acquired absence of right leg below knee Status: Acute (5) C. 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: without assisted use Qualified Code(s): E11.22 - Type 2 diabetes mellitus with diabetic chronic kidney disease; N18.4 - Chronic kidney disease, stage 4 (severe) Code(s): E11.9 - Type 2 diabetes mellitus without complications Status: Acute (7) Hypertension: Qualifiers: Hypertension type: essential hypertension Qualified Code(s): I10 - Essential (primary) hypertension Code(s): I10 - Essential (primary) hypertension Status: Chronic (8) Morbid obesity with BMI of 40.0-44.9, adult: Code(s): E66.01 - Morbid (severe) obesity due to excess calories; Z68.41 - Body mass index [BMI]40.0-44.9, adult Status: Acute Additional Plan I have discussed the patient's case and plan of care with Dr. Ayala. Thank you for allowing us to see the patient in consultation. History of Present Illness Consult details Consult date: 11/09/20 Reason for consult: other (Tunnelled dialysis catheter) Requesting physician: Yifan Pollard MD Narrative: This is a 65-year-old morbidly obese F with a hx of chronic kidney disease, hypertension, diabetes, peripheral vascular disease, and multiple other medical problems with recent C diff colitis and was discharged on p.o. vanc, and also had a recent right BKA on 09/28. She presented to the ER with altered mental status and has since been hospitalized for the past month. She was found to have bradycardia and septic shock felt to be secondary to right BKA stump infection. She underwent surgical debridement of the right BKA stump by orthopedics. Her hospitalization has been complicated by acute respiratory failure, acute on chronic renal failure, encephalopathy, hypotension, and was treated for UTI. Due to her worsening kidney function, nephrology has consulted our service to place a tunnelled dialysis catheter in order to initiate hemodialysis. Review of Systems Review of Systems: All systems reviewed & are unremarkable except as noted in HPI and below PMFSH Past Medical History Medical History Chronic kidney disease (CKD) stage G4/A1, severely decreased glomerular filtration rate (GFR) between 15-29 mL/min/1.73 square meter and albuminuria creatinine ratio less than 30 mg/g Chronic kidney disease, stage 4 (severe) Chronic pain of right ankle Delayed surgical wound healing of wzzze-yif-unlp amputation stump Hematoma of amputation stump o
[2020-11-09 16:43] LABS: Glucose Point of Care 135 mg/dl (65-105)
[2020-11-09] MEDS: TOLNAFTATE 1% POWDER 45 GM BTL 1 APPLIC TOPICAL ×2 (17:19→21:00)
[2020-11-09] MEDS: ATORVASTATIN 40 MG TABLET PO (20:17)
[2020-11-09] MEDS: ACETAMINOPHEN 325 MG TABLET 650 MG PO (20:22)
[2020-11-09 21:12] LABS: Glucose Point of Care 153 mg/dl (65-105)
[2020-11-09 22:49] LABS: Hepatitis B Surface Antigen Negative (Negative)
[2020-11-09 23:08] LABS: Hepatitis B Surface Anti Res Negative; Hepatitis C Virus Antibody Negative (Negative)
[2020-11-10] VITALS (29 sets, daily range): BP systolic 135–199; BP diastolic 54–95; PULSE 72–93; RESP 14–23; TEMP 36.2–37.5; O2SAT 92–100
[2020-11-10] MEDS: ALBUTEROL SULFATE NEB 2.5 MG/0.5 ML INH INHALATION ×4 (01:34→21:32)
[2020-11-10] MEDS: IPRATROPIUM BR 0.02% INH SOLN 0.5 MG/2.5 ML VIAL INHALATION ×4 (01:34→21:32)
[2020-11-10 06:15] LABS: Hematocrit 29.9 % (37.0-47.0); Hemoglobin 8.7 g/dL (12.0-15.0); Mean Corpuscular HGB Conc 29.1 g/dl (32-36); Mean Corpuscular Hemoglobin 28.8 pg (26-34); Mean Platelet Volume 10.3 fl (7.4-10.4); Platelet Count Result 230 k/mm3 (150-375); Red Blood Count 3.02 M/mm3 (4.2-5.4); Red Cell Distribution Width 17.8 % (11.5-14.5); White Blood Count 7.9 K/mm3 (4.5-10.0)
[2020-11-10 06:25] LABS: Albumin Level 2.4 g/dL (3.5-5.1); Anion Gap 11 mmol/L (8-16); Blood Urea Nitrogen 85 mg/dL (7-17); Calcium 7.9 mg/dL (8.4-10.2); Carbon Dioxide 23 mmol/L (22-30); Chloride 103 mmol/L (98-107); Estimated CRCL calculation 11 ml/min; Estimated Glomerular Filt Rate 7; Glucose 101 mg/dL (65-110); Potassium 4.1 mmol/L (3.4-5.0); Sodium 137 mmol/L (137-145)
[2020-11-10] MEDS: AMPICILLIN SULB 1.5 GM/NS 50ML 1.5 GM/50 ML VIAL IVPB ×2 (06:49→17:28)
[2020-11-10] MEDS: TOLNAFTATE 1% POWDER 45 GM BTL 1 APPLIC TOPICAL ×2 (07:30→21:38)
[2020-11-10 08:10] LABS: Glucose Point of Care 99 mg/dl (65-105)
[2020-11-10] MEDS: PANTOPRAZOLE SODIUM IV 40 MG VIAL IV PUSH (08:33)
[2020-11-10] MEDS: FUROSEMIDE INJ 100 MG/10 ML VIAL 80 MG IV PUSH ×2 (08:33→17:28)
--- NOTE | 2020-11-10 08:52 | PC.NURSE ---
To OR @ 0883 per bed. Spoke to Judy @ [id number].
[2020-11-10] MEDS: SODIUM CHLORIDE 0.9% IV 500 ML 30 ML IV CONT (09:00)
--- NOTE | 2020-11-10 10:24 | P.PNNP_ITS ---
Progress Note: A&P Assessment and Plan (1) Chronic kidney disease, stage 4 (severe): Code(s): N18.4 - Chronic kidney disease, stage 4 (severe) Status: Chronic Assessment and Plan: * creatinine is up and down. Her baseline is around 3. * follows with Dr. Pena for CKD management * most likely due to diabetes, hypertension, and vascular disease * the patient has acute kidney injury on top of CKD. * Urine sodium was not low but she is on diuretics. * Repeat ultrasound shows no hydronephrosis * her creatinine continues to rise. * Urine output is just fair. * She is still very swollen * creatinine sofía to 5.8 today. * to get hemocath then dialysis later today (2) Metabolic acidosis: Code(s): E87.2 - Acidosis Status: Acute Assessment and Plan: * improving at this time * CO2 is Slightly better at 23. (3) Septic shock: Code(s): A41.9 - Sepsis, unspecified organism; R65.21 - Severe sepsis with septic shock Status: Acute Assessment and Plan: * resolved (4) Hypertension: Qualifiers: Hypertension type: essential hypertension Qualified Code(s): I10 - Essential (primary) hypertension Code(s): I10 - Essential (primary) hypertension Status: Chronic Assessment and Plan: * blood pressure under good control (5) Anemia: Code(s): D64.9 - Anemia, unspecified Status: Chronic Assessment and Plan: * due to underlying CKD and acute illness * on Epogen * hemoglobin is stable in the 8s * Will repeat a reticulocyte count. It was only 1.5 1 month ago (6) Type 2 diabetes mellitus: Qualifiers: Diabetes mellitus terminal block assembler insulin use: without terminal block assembler use Diabetes mellitus complication status: with kidney complications Diabetes mellitus complication detail: with chronic kidney disease Chronic kidney disease stage: stage 4 (severe) Qualified Code(s): E11.22 - Type 2 diabetes mellitus with diabetic chronic kidney disease; N18.4 - Chronic kidney disease, stage 4 (severe) Code(s): E11.9 - Type 2 diabetes mellitus without complications Status: Acute Assessment and Plan: * follow accuchecks * on SSI Subjective Date/time seen: 11/10/20 10:24 Interval history: Rimma is feeling about the same. in preop for cathter placement Still very swollen Exam Narrative: General: WD/WN female in NAD Heart: normal S1 and S2; no rub or gallop Lungs: clear lungs Abdomen: soft, nontender, nondistended, positive bowel sounds Extremities: no cyanosis or clubbing; 1-2+ edema; s/p right BKA Skin: wound vac in place on the right stump Objective Data Vital Signs Vital Signs: Vital Signs - 24 hr 11/09/20 10:31 11/09/20 13:46 11/09/20 14:40 Temperature 36.4 C L Pulse Rate 84 78 86 Respiratory Rate 18 18 Blood Pressure 168/63 H Pulse Oximetry 92 11/09/20 14:45 11/09/20 14:49 11/09/20 16:00 Temperature Pulse Rate 81 Respiratory Rate 18 Blood Pressure 163/57 H Pulse Oximetry 97 11/09/20 20:00 11/09/20 20:13 11/09/20 20:14 Temperature 37.1 C Pulse Rate 81 81 Respiratory Rate 18 18 Blood Pressure 155/63 H Pulse Oximetry 100 100 11/09/20 20:17 11/09/20 20
--- NOTE | 2020-11-10 10:24 | PM.PNNEP ---
Progress Note: A&P Assessment and Plan (1) Chronic kidney disease, stage 4 (severe): Code(s): N18.4 - Chronic kidney disease, stage 4 (severe) Status: Chronic Assessment and Plan: creatinine is up and down. Her baseline is around 3. follows with Dr. Pena for CKD management most likely due to diabetes, hypertension, and vascular disease the patient has acute kidney injury on top of CKD. Urine sodium was not low but she is on diuretics. Repeat ultrasound shows no hydronephrosis her creatinine continues to rise. Urine output is just fair. She is still very swollen creatinine sofía to 5.8 today. to get hemocath then dialysis later today (2) Metabolic acidosis: Code(s): E87.2 - Acidosis Status: Acute Assessment and Plan: improving at this time CO2 is Slightly better at 23. (3) Septic shock: Code(s): A41.9 - Sepsis, unspecified organism; R65.21 - Severe sepsis with septic shock Status: Acute Assessment and Plan: resolved (4) Hypertension: Qualifiers: Hypertension type: essential hypertension Qualified Code(s): I10 - Essential (primary) hypertension Code(s): I10 - Essential (primary) hypertension Status: Chronic Assessment and Plan: blood pressure under good control (5) Anemia: Code(s): D64.9 - Anemia, unspecified Status: Chronic Assessment and Plan: due to underlying CKD and acute illness on Epogen hemoglobin is stable in the 8s Will repeat a reticulocyte count. It was only 1.5 1 month ago (6) Type 2 diabetes mellitus: Qualifiers: Diabetes mellitus usp insulin use: without usp use Diabetes mellitus complication status: with kidney complications Diabetes mellitus complication detail: with chronic kidney disease Chronic kidney disease stage: stage 4 (severe) Qualified Code(s): E11.22 - Type 2 diabetes mellitus with diabetic chronic kidney disease; N18.4 - Chronic kidney disease, stage 4 (severe) Code(s): E11.9 - Type 2 diabetes mellitus without complications Status: Acute Assessment and Plan: follow accuchecks on SSI Subjective Date/time seen: 11/10/20 10:24 Interval history: Rimma is feeling about the same. in preop for cathter placement Still very swollen Exam Narrative: General: WD/WN female in NAD Heart: normal S1 and S2; no rub or gallop Lungs: clear lungs Abdomen: soft, nontender, nondistended, positive bowel sounds Extremities: no cyanosis or clubbing; 1-2+ edema; s/p right BKA Skin: wound vac in place on the right stump Objective Data Vital Signs Vital Signs: Vital Signs - 24 hr 11/09/20 10:31 11/09/20 13:46 11/09/20 14:40 Temperature 36.4 C L Pulse Rate 84 78 86 Respiratory Rate 18 18 Blood Pressure 168/63 H Pulse Oximetry 92 11/09/20 14:45 11/09/20 14:49 11/09/20 16:00 Temperature Pulse Rate 81 Respiratory Rate 18 Blood Pressure 163/57 H Pulse Oximetry 97 11/09/20 20:00 11/09/20 20:13 11/09/20 20:14 Temperature 37.1 C Pulse Rate 81 81 Respiratory Rate 18 18 Blood Pressure 155/63 H Pulse Oximetry 100 100 11/09/20 20:17 11/09/20 20:18 11/09/20 20:20 Temperature Pulse Rate 81 81 Respiratory Rate 20 18 Blood Pressure Pulse Oximetry 100 11/10/20 01:35 11/10/20 06:00 11/10/20 08:01 Temperature 36.3 C L Pulse Rate 81 73 80 Respiratory Rate 14 18 16 Blood Pressure 159/54 H Pulse Oximetry 99 98 11/10/20 08:21 11/10/20 09:00 Temperature 36.7 C Pulse Rate 80 90 Respiratory Rate 16 16 Blood Pressure 138/85 Pulse Oximetry 94 Intake/Output Intake/Output: Intake & Output 11/07/20 11/08/20 11/09/20 11/10/20 23:59 23:59 23:59 23:59 Intake Total 1270 1600 1220 Output Total 950 1250 1700 1200 Balance 320 350 480 -1200 Meds/Results Medications: Active Medications Generic Name Dose Rout
--- NOTE | 2020-11-10 10:40 | WPDHPUPDATE1 ---
History and Physical Update Update Date/Time: 11/10/20 10:40 History and Physical has been reviewed, including an updated exam of the patient. There are NO changes in the patient's condition. Risks, benefits, and alternatives have been discussed and questions answered. Patient agrees to proceed with procedure.
--- NOTE | 2020-11-10 11:07 | WPDANESEPPF ---
Anes - Initial Pre Proc Eval Procedure: Operation Date: 10/19/20 09:00 Proposed Procedures p Right Leg Debridement - Avinash Curtis MD Operation Date: 11/10/20 09:30 Proposed Procedures p Insertion Tunneled Dialysis Catheter - La Ayala MD Date/Time: 11/10/20 11:07 Surgeon: Jose R Medellin PA-C Pre Op Diagnosis: Debridement infection of right BKA Patient Data Age: 65 Gender: F Height: 1.6 m Weight: 126.6 kg Last Vital Signs Temp 98.0 F 11/10/20 09:00 Pulse 90 11/10/20 09:00 Resp 16 11/10/20 09:00 BP 138/85 11/10/20 09:00 Pulse Ox 94 11/10/20 09:00 Allergies Allergy/AdvReac Type Severity Reaction Status Date / Time sulfamethoxazole AdvReac Intermediate HIGH Verified 11/10/20 09:23 POTASSIUM trimethoprim AdvReac Intermediate HIGH Verified 11/10/20 09:23 POTASSIUM carvedilol AdvReac Unknown Dizziness Verified 11/10/20 09:23 oxycodone AdvReac Unknown Dizziness Verified 11/10/20 09:23 Home Medications Medication Instructions Recorded Confirmed Type atorvastatin [Lipitor] 40 mg PO HS 02/01/19 10/11/20 History hydralazine 100 mg PO TID 02/01/19 10/11/20 History verapamil 240 mg PO QAM 02/01/19 10/11/20 History clonidine HCl 0.1 mg tablet 0.1 mg PO BID 08/28/20 10/11/20 History doxazosin 2 mg tablet 2 mg PO HS 08/28/20 10/11/20 History levothyroxine 25 mcg capsule 25 mcg PO QAM 08/28/20 10/11/20 History ergocalciferol (vitamin D2) 1,250 mcg PO WEEKLY 09/19/20 10/11/20 History metoprolol tartrate 100 mg PO BID 09/19/20 10/11/20 History acetaminophen 325 mg PO Q6H PRN 09/28/20 10/11/20 History calcium carbonate [Tums] 500 mg PO PRN PRN 09/28/20 10/11/20 History albuterol sulfate 2 puff INHALATION QID PRN #8.5 g 10/06/20 10/11/20 Rx hydrocodone-acetaminophen 1 tablet PO Q6H PRN #30 tablet 10/06/20 10/11/20 Rx vancomycin 125 mg PO Q6HR #48 ea 10/06/20 10/11/20 Rx aspirin [Adult Aspirin EC Low 81 mg PO DAILY 10/11/20 10/11/20 History Strength] cetirizine 10 mg PO DAILY 10/11/20 10/11/20 History ferrous sulfate [Iron (ferrous 325 mg PO DAILY 10/11/20 10/11/20 History sulfate)] Laboratory Tests 11/09/20 11/09/20 11/09/20 12:11 16:40 19:19 WBC RBC Hgb Hct MCV MCH MCHC RDW Plt Count MPV Sodium Potassium Chloride Carbon Dioxide Anion Gap BUN Creatinine Estim Creat Clear Calc Estimated GFR Glucose POC Capillary Glucose 97 mg/dl mg/dl 135 mg/dl H mg/dl (65-105) (65-105) Calcium Phosphorus Albumin Hep Bs Antigen Hep Bs Antibody Negative Hep B Core Total Ab Hepatitis C Ab Screen Negative (Negative) 11/09/20 11/09/20 11/09/20 19:19 19:19 21:02 WBC RBC Hgb Hct MCV MCH MCHC RDW Plt Count MPV Sodium Potassium Chloride Carbon Dioxide Anion Gap BUN Creatinine Estim Creat Clear Calc Estimated GFR Glucose POC Capillary Glucose 153 mg/dl H mg/dl (65-105) Calcium Phosphorus Albumin Hep Bs Antigen Negative (Negative) Hep Bs Antibody Hep B Core Total Ab Pending Hepatitis C Ab Screen 11/10/20 11/10/20 11/10/20 05:53 05:53 08:07 WBC 7.9 K/mm3 K/mm3 (4.5-10.0) RBC 3.02 M/mm3 L M/mm3 (4.2-5.4) Hgb 8.7 g/dL L g/dL (12.0-15.0) Hct 29.9 % L % (37.0-47.0) MCV 99.0 fl fl (80-100) MCH 28.8 pg pg (26-34) MCHC 29.1 g/dl L
[2020-11-10 11:27] LABS: Immature Reticulocyte Fraction 33.1 % (3.0-15.9); Reticulocyte Hemoglobin Conten 25.1 pg (28.2-35.7); Reticulocyte Percent 3.87 % (0.7-4.3); Reticulocytes Absolute 0.12 B/L (32.2-175.7)
--- NOTE | 2020-11-10 11:34 | PCOTNOTE ---
Attempted to see patient this am, however patient having procedure at this time followed by dialysis.
[2020-11-10] MEDS: HEPARIN SODIUM 5,000 UNITS/ML VIAL 5000 UNITS SUB-Q ×2 (12:10→21:37)
[2020-11-10] MEDS: LIDO 1%/EPINEPHRINE 1:100,000 20 ML VIAL INFILTRATE (12:10)
[2020-11-10] MEDS: HEPARIN SODIUM, PORCINE 10,000 UNITS/10 ML VIAL 10000 UNITS IRRIGATION (12:12)
--- NOTE | 2020-11-10 13:30 | W.PM.PROC2 ---
Procedure Note - Detailed Date of Procedure 11/10/20 Pre-op Diagnosis renal failure Post-op Diagnosis same Procedure Performed Placement of right internal jugular 24 cm tunneled hemodialysis catheter under ultrasound and fluoroscopic guidance, right neck exploration with control of postoperative bleeding Surgeon La Ayala MD Baby Sitter David Johnson MD Anesthesia MAC and local Indications 65 y/o F c multiple med issues presenting c worsening renal failure necessitating hemodialysis. Findings 1st stick RIJ under U/S guidance, postoperative hemorrhage from R neck stick site requiring exploration and control of bleeding Description of Procedure Patient was taken to the operating room and placed in the supine position. After adequate induction of MAC anesthesia, the patient was prepped and draped in normal sterile fashion. A time-out was then done to verify the patient's identity as well as the procedure being performed. I began by using the SonoSite and locating the right internal jugular vein. Once this was done, I localized the overlying skin. I then made a small incision in the skin. I then gained access into the right internal jugular vein with an 18 gauge needle. At this point, I threaded the guidewire into the right internal jugular vein. Placement of the guidewire was confirmed by both ultrasound and fluoroscopic guidance. I then went ahead and measured the 24 cm tunneled dialysis catheter to our stick site in the right neck. I then localized the tract going from the right chest to the right neck. I then made a small incision in the right chest and tunneled the catheter to the right neck. I then serially dilated the right internal jugular vein under fluoroscopic guidance. Once adequately dilated, I placed the dilating sheath over the guidewire into the right internal jugular vein under fluoroscopic visualization. Once this was noted to be in good position, I removed both the guidewire and dilator, now just leaving the sheath in the vein. I then went ahead and fed the previously tunneled catheter into the sheath. Once the catheter was fed and positioned correctly, I went ahead and peeled the sheath away. Final fluoroscopic view showed the catheter in good position from its insertion point in the right chest to its termination in the right atrial caval junction. It was noted there was no kinking of the catheter. I was able to easily draw and flush from both ports of the catheter. I placed 2.1 and 2.0 cc of final heparin flush into each port as marked. The catheter was then sutured into place and the incision in the neck was examined. At this point, there was noted to be some brisk venous bleeding from the neck site. I immediately held pressure in this area. After holding pressure for approximately 30 minutes and placing some sutures to close the skin, the bleeding continued. Given this, I called Dr. Johnson for help with neck exploration and hemorrhage control. The patient was reprepped and draped. We localized the area further and extended the incision both superiorly and inferiorly. Once exposure was gained, the bleeding was noted to be from a side branch of the right internal jugular vein. We were able to control the bleeding by placing a pursestring suture around this branch. No further bleeding was noted at this point. The catheter was tested and looked to be functioning well. I then closed the neck incision with interrupted 3.0 Nylon sutures. The patient tolerated the procedure well and will be transferred to the recovery room in stable condition. Sterile dressing was placed on the catheter. Portable chest x-ray will be done in the recovery room. Implants 24 cm tunneled hemodialysis catheter Estimated Blood Loss 150 Drains No Packing No Pathology none sent Complications Other complications (bleeding requiring neck exploration) Condition stable Disposition PACU
[2020-11-10 14:02] LABS: Glucose Point of Care 106 mg/dl (65-105)
--- NOTE | 2020-11-10 14:41 | PC.NURSE ---
Return from OR per bed @ 0616. Report from REBECA Morton @ [id number].
[2020-11-10] MEDS: DOCUSATE SODIUM 100 MG CAPSULE PO (17:28)
[2020-11-10 17:47] LABS: Glucose Point of Care 188 mg/dl (65-105)
[2020-11-10] MEDS: EPOETIN ALFA-EPBX 10,000 UNITS/ML VIAL 10000 UNITS SUB-Q (21:37)
[2020-11-10] MEDS: ACETAMINOPHEN 325 MG TABLET 650 MG PO (21:38)
[2020-11-10] MEDS: METOPROLOL TARTRATE 50 MG TAB 100 MG PO (21:39)
[2020-11-10] MEDS: ATORVASTATIN 40 MG TABLET PO (21:40)
[2020-11-10 22:27] LABS: Glucose Point of Care 189 mg/dl (65-105)
[2020-11-11] VITALS (15 sets, daily range): BP systolic 141–166; BP diastolic 54–64; PULSE 64–92; RESP 14–22; TEMP 36.1–37.2; O2SAT 92–97
[2020-11-11] MEDS: IPRATROPIUM BR 0.02% INH SOLN 0.5 MG/2.5 ML VIAL INHALATION ×4 (02:21→20:14)
[2020-11-11] MEDS: ALBUTEROL SULFATE NEB 2.5 MG/0.5 ML INH INHALATION ×4 (02:22→20:14)
[2020-11-11] MEDS: AMPICILLIN SULB 1.5 GM/NS 50ML 1.5 GM/50 ML VIAL IVPB ×2 (06:15→18:37)
[2020-11-11] MEDS: LEVOTHYROXINE SODIUM 25 MCG TABLET PO (06:15)
[2020-11-11 07:28] LABS: Albumin Level 2.4 g/dL (3.5-5.1); Anion Gap 8 mmol/L (8-16); Blood Urea Nitrogen 62 mg/dL (7-17); Calcium 7.6 mg/dL (8.4-10.2); Carbon Dioxide 25 mmol/L (22-30); Chloride 103 mmol/L (98-107); Estimated CRCL calculation 15 ml/min; Estimated Glomerular Filt Rate 10; Glucose 110 mg/dL (65-110); Phosphorus 4.9 mg/dL (2.5-4.5); Potassium 3.7 mmol/L (3.4-5.0); Sodium 136 mmol/L (137-145)
[2020-11-11 08:13] LABS: Glucose Point of Care 106 mg/dl (65-105)
[2020-11-11] MEDS: ASPIRIN 81 MG ENTERIC TABLET PO (08:17)
[2020-11-11] MEDS: FERROUS SULFATE 324 MG TABLET PO (08:17)
[2020-11-11] MEDS: DOCUSATE SODIUM 100 MG CAPSULE PO ×2 (08:17→17:35)
[2020-11-11] MEDS: TOLNAFTATE 1% POWDER 45 GM BTL 1 APPLIC TOPICAL ×2 (08:18→22:27)
[2020-11-11] MEDS: METOPROLOL TARTRATE 50 MG TAB 100 MG PO ×2 (08:18→22:27)
[2020-11-11] MEDS: metOLazone 5 MG TABLET PO (08:18)
[2020-11-11] MEDS: PANTOPRAZOLE SODIUM IV 40 MG VIAL IV PUSH (08:19)
[2020-11-11] MEDS: FUROSEMIDE INJ 100 MG/10 ML VIAL 80 MG IV PUSH (09:51)
[2020-11-11] MEDS: HEPARIN SODIUM 5,000 UNITS/ML VIAL 5000 UNITS SUB-Q ×2 (09:51→22:27)
--- NOTE | 2020-11-11 11:13 | P.PNNP_ITS ---
Progress Note: A&P Assessment and Plan (1) Chronic kidney disease, stage 4 (severe): Code(s): N18.4 - Chronic kidney disease, stage 4 (severe) Status: Chronic Assessment and Plan: * creatinine is up and down. Her baseline is around 3. * follows with Dr. Pena for CKD management * most likely due to diabetes, hypertension, and vascular disease * the patient has acute kidney injury on top of CKD. * Urine sodium was not low but she is on diuretics. * Repeat ultrasound shows no hydronephrosis * her creatinine continues to rise. * She received dialysis yesterday. 4L were removed. Will do another treatment this evening or tomorrow morning depending on logistics. (2) Metabolic acidosis: Code(s): E87.2 - Acidosis Status: Acute Assessment and Plan: * Resolved (3) Septic shock: Code(s): A41.9 - Sepsis, unspecified organism; R65.21 - Severe sepsis with septic shock Status: Acute Assessment and Plan: * resolved (4) Hypertension: Qualifiers: Hypertension type: essential hypertension Qualified Code(s): I10 - Essential (primary) hypertension Code(s): I10 - Essential (primary) hypertension Status: Chronic Assessment and Plan: * blood pressure under good control (5) Anemia: Code(s): D64.9 - Anemia, unspecified Status: Chronic Assessment and Plan: * due to underlying CKD and acute illness * on Epogen * hemoglobin is stable in the 8s * Reticulocyte count is good at 3.87. (6) Type 2 diabetes mellitus: Qualifiers: Diabetes mellitus rn long term care insulin use: without rn long term care use Diabetes mellitus complication status: with kidney complications Diabetes mellitus complication detail: with chronic kidney disease Chronic kidney disease stage: stage 4 (severe) Qualified Code(s): E11.22 - Type 2 diabetes mellitus with diabetic chronic kidney disease; N18.4 - Chronic kidney disease, stage 4 (severe) Code(s): E11.9 - Type 2 diabetes mellitus without complications Status: Acute Assessment and Plan: * follow accuchecks * on SSI Subjective Date/time seen: 11/11/20 11:13 Interval history: Rimma is feeling about the same. Sitting up in a chair. Still swollen may be a little bit less. She got 2L of fluid removed yesterday. Exam Narrative: General: WD/WN female in NAD Heart: normal S1 and S2; no rub or gallop Lungs: clear lungs Abdomen: soft, nontender, nondistended, positive bowel sounds Extremities: no cyanosis or clubbing; 1-2+ edema; s/p right BKA Skin: wound vac in place on the right stump Objective Data Vital Signs Vital Signs: Vital Signs - 24 hr 11/10/20 13:25 11/10/20 13:30 11/10/20 13:45 Temperature 36.8 C Pulse Rate 92 85 85 Respiratory Rate 19 20 23 H Blood Pressure 135/58 L 142/63 H 137/60 Pulse Oximetry 97 100 96 11/10/20 14:00 11/10/20 14:07 11/10/20 14:22 Temperature Pulse Rate 84 83 80 Respiratory Rate 19 14 14 Blood Pressure 140/63 141/57 H Pulse Oximetry 100 98 97 11/10/20 14:25 11/10/20 14:40 11/10/20 15:01 Temperature 36.4 C 36.4 C Pulse Rate 83 82 88 Respiratory Rate 20 20 16 Blood Pressure 149/66 H 152/63 H Pulse Oximetry 98 99 11/10/20
--- NOTE | 2020-11-11 11:13 | PM.PNNEP ---
Progress Note: A&P Assessment and Plan (1) Chronic kidney disease, stage 4 (severe): Code(s): N18.4 - Chronic kidney disease, stage 4 (severe) Status: Chronic Assessment and Plan: creatinine is up and down. Her baseline is around 3. follows with Dr. Pena for CKD management most likely due to diabetes, hypertension, and vascular disease the patient has acute kidney injury on top of CKD. Urine sodium was not low but she is on diuretics. Repeat ultrasound shows no hydronephrosis her creatinine continues to rise. She received dialysis yesterday. 4L were removed. Will do another treatment this evening or tomorrow morning depending on logistics. (2) Metabolic acidosis: Code(s): E87.2 - Acidosis Status: Acute Assessment and Plan: Resolved (3) Septic shock: Code(s): A41.9 - Sepsis, unspecified organism; R65.21 - Severe sepsis with septic shock Status: Acute Assessment and Plan: resolved (4) Hypertension: Qualifiers: Hypertension type: essential hypertension Qualified Code(s): I10 - Essential (primary) hypertension Code(s): I10 - Essential (primary) hypertension Status: Chronic Assessment and Plan: blood pressure under good control (5) Anemia: Code(s): D64.9 - Anemia, unspecified Status: Chronic Assessment and Plan: due to underlying CKD and acute illness on Epogen hemoglobin is stable in the 8s Reticulocyte count is good at 3.87. (6) Type 2 diabetes mellitus: Qualifiers: Diabetes mellitus ferry terminal supervisor insulin use: without prison use Diabetes mellitus complication status: with kidney complications Diabetes mellitus complication detail: with chronic kidney disease Chronic kidney disease stage: stage 4 (severe) Qualified Code(s): E11.22 - Type 2 diabetes mellitus with diabetic chronic kidney disease; N18.4 - Chronic kidney disease, stage 4 (severe) Code(s): E11.9 - Type 2 diabetes mellitus without complications Status: Acute Assessment and Plan: follow accuchecks on SSI Subjective Date/time seen: 11/11/20 11:13 Interval history: Rimma is feeling about the same. Sitting up in a chair. Still swollen may be a little bit less. She got 2L of fluid removed yesterday. Exam Narrative: General: WD/WN female in NAD Heart: normal S1 and S2; no rub or gallop Lungs: clear lungs Abdomen: soft, nontender, nondistended, positive bowel sounds Extremities: no cyanosis or clubbing; 1-2+ edema; s/p right BKA Skin: wound vac in place on the right stump Objective Data Vital Signs Vital Signs: Vital Signs - 24 hr 11/10/20 13:25 11/10/20 13:30 11/10/20 13:45 Temperature 36.8 C Pulse Rate 92 85 85 Respiratory Rate 19 20 23 H Blood Pressure 135/58 L 142/63 H 137/60 Pulse Oximetry 97 100 96 11/10/20 14:00 11/10/20 14:07 11/10/20 14:22 Temperature Pulse Rate 84 83 80 Respiratory Rate 19 14 14 Blood Pressure 140/63 141/57 H Pulse Oximetry 100 98 97 11/10/20 14:25 11/10/20 14:40 11/10/20 15:01 Temperature 36.4 C 36.4 C Pulse Rate 83 82 88 Respiratory Rate 20 20 16 Blood Pressure 149/66 H 152/63 H Pulse Oximetry 98 99 11/10/20 15:10 11/10/20 16:00 11/10/20 18:20 Temperature 36.6 C 36.4 C 37.1 C Pulse Rate 90 91 92 Respiratory Rate 20 20 18 Blood Pressure 167/67 H 163/61 H 199/91 H Pulse Oximetry 94 92 11/10/20 18:22 11/10/20 18:30 11/10/20 18:45 Temperature Pulse Rate 88 88 90 Respiratory Rate Blood Pressure 179/94 H 192/81 H 170/80 H Pulse Oximetry 11/10/20 19:00 11/10/20 19:15 11/10/20 19:30 Temperature Pulse Rate 88 90 92 Respiratory Rate Blood Pressure 172/80 H 159/89 H 179/95 H Pulse Oximetry 11/10/20 19:45 11/10/20 20:00 11/10/20 20:32 Temperature 37.5 C 37.0 C Pulse Rate 91 91 93 Respiratory Rate 18 18 Blood Pressure 180/83 H 180/83 H 180/89 H Pulse Oximetry
--- NOTE | 2020-11-11 11:55 | PM.PNGS ---
Progress Note: A&P Assessment and Plan (1) Encounter for insertion of venous access port: Code(s): Z45.2 - Encounter for adjustment and management of vascular access device Status: Acute Assessment and Plan: right neck wound healing well. No significant hematoma. Mild ecchymosis. (2) Chronic kidney disease, stage 4 (severe): Code(s): N18.4 - Chronic kidney disease, stage 4 (severe) Status: Chronic Subjective Subjective Date/Time Seen: 11/11/20 11:55 Post Op day: 1 Patient reports: still having pain ( Right side of neck is sore.) Exam Neck: Neck: trachea midline, tender and other ( mild swelling and ecchymosis, incision healing well.) Objective Data Vital Signs Vital Signs: Vital Signs - 24 hr 11/10/20 13:25 11/10/20 13:30 11/10/20 13:45 Temperature 36.8 C Pulse Rate 92 85 85 Respiratory Rate 19 20 23 H Blood Pressure 135/58 L 142/63 H 137/60 Pulse Oximetry 97 100 96 11/10/20 14:00 11/10/20 14:07 11/10/20 14:22 Temperature Pulse Rate 84 83 80 Respiratory Rate 19 14 14 Blood Pressure 140/63 141/57 H Pulse Oximetry 100 98 97 11/10/20 14:25 11/10/20 14:40 11/10/20 15:01 Temperature 36.4 C 36.4 C Pulse Rate 83 82 88 Respiratory Rate 20 20 16 Blood Pressure 149/66 H 152/63 H Pulse Oximetry 98 99 11/10/20 15:10 11/10/20 16:00 11/10/20 18:20 Temperature 36.6 C 36.4 C 37.1 C Pulse Rate 90 91 92 Respiratory Rate 20 20 18 Blood Pressure 167/67 H 163/61 H 199/91 H Pulse Oximetry 94 92 11/10/20 18:22 11/10/20 18:30 11/10/20 18:45 Temperature Pulse Rate 88 88 90 Respiratory Rate Blood Pressure 179/94 H 192/81 H 170/80 H Pulse Oximetry 11/10/20 19:00 11/10/20 19:15 11/10/20 19:30 Temperature Pulse Rate 88 90 92 Respiratory Rate Blood Pressure 172/80 H 159/89 H 179/95 H Pulse Oximetry 11/10/20 19:45 08/06/21 20:00 11/10/20 20:32 Temperature 37.5 C 37.0 C Pulse Rate 91 91 93 Respiratory Rate 18 18 Blood Pressure 180/83 H 180/83 H 180/89 H Pulse Oximetry 94 11/10/20 21:32 11/10/20 23:54 11/11/20 02:23 Temperature 36.2 C L Pulse Rate 72 76 89 Respiratory Rate 14 18 14 Blood Pressure 145/66 H Pulse Oximetry 99 11/11/20 02:32 11/11/20 04:03 11/11/20 08:00 Temperature 36.3 C L 37.2 C Pulse Rate 87 71 89 Respiratory Rate 16 18 18 Blood Pressure 141/55 H 147/54 H Pulse Oximetry 97 94 11/11/20 08:18 11/11/20 08:20 11/11/20 08:31 Temperature Pulse Rate 64 86 88 Respiratory Rate 18 16 Blood Pressure Pulse Oximetry 92 Intake/Output Intake/Output: Intake & Output 11/08/20 11/09/20 11/10/20 11/11/20 23:59 23:59 23:59 23:59 Intake Total 1600 1220 350 670 Output Total 1250 1700 4500 800 Balance 350 -375 -4150 -130 Meds/Results Medications: Active Medications Generic Name Dose Route Start Last Admin Trade Name Jessica PRN Reason Stop Dose Admin Acetaminophen 650 mg 10/14/20 21:52 11/10/20 21:38 Acetaminophen 325 Mg Tablet PO 650 mg Q6H PRN Administration Mild Pain (1-3) or Fever Albuterol 2.5 mg 10/29/20 14:45 11/11/20 08:19 Albuterol Sulfate Neb 2.5 Mg/0.5 Ml Inh INHALATION 2.5 mg Q6HRT REJI Administration Aspirin 81 mg 10/15/20 09:00 11/11/20 08:17 Aspirin 81 Mg Enteric Tablet PO 81 mg DAILY REJI Administration Docusate Sodium 100 mg 10/19/20 17:00 11/11/20 08:17 Docusate Sodium 100 Mg Capsule PO 100 mg BID REJI Administration Epoetin Gregory-epbx 10,000 units 10/13/20 12:30 11/10/20 21:37 Epoetin Gregory-Epbx 10,000 Units/Ml Vial SUB-Q 10,000 units MOWEFR REJI Administration Ferrous Sulfate 324 mg 10/20/20 09:00 11/11/20 08:17 Ferrous Sulfate 324 Mg Tablet PO 324 mg DAILY REJI Administration Furosemide 80 mg 11/11/20 17:00 Furosemide 80 Mg Tablet PO BID [facility] Heparin Sodium (Porcine) 5,000 units 10/16/20 09:00 11/11/20 09:51 Heparin Sodium 5,000 Units/Ml Vial SUB-Q 5,000 units Q12HR SC
[2020-11-11 12:21] LABS: Glucose Point of Care 139 mg/dl (65-105)
--- NOTE | 2020-11-11 14:36 | WPDANESPN ---
Anes - Prog Note Post-Op Date/Time: 11/11/20 14:36 Cardiovascular status: normal Respiratory status: normal Airway patency: baseline Mental status: baseline Post-Op hydration status: normal Vital Signs: Last Vital Signs Temp 37.2 C 11/11/20 08:00 Pulse 88 11/11/20 14:08 Resp 16 11/11/20 14:08 BP 147/54 H 11/11/20 08:00 Pulse Ox 92 11/11/20 08:20 Pain Score (VAS): 0 I/O: Intake & Output 11/10/20 11/11/20 11/11/20 23:59 07:59 15:59 Intake Total 300 340 330 Output Total 3100 800 Balance -2800 -460 330 Laboratory Tests 11/10/20 05:53 11/11/20 06:15 11/10/20 11/10/20 11/11/20 17:27 21:45 06:15 Sodium 136 L Potassium 3.7 Chloride 103 Carbon Dioxide 25 Anion Gap 8 BUN 62 H D Creatinine 4.60 H Estim Creat Clear Calc 15 Estimated GFR 10 L Glucose 110 POC Capillary Glucose 188 H 189 H Calcium 7.6 L Phosphorus 4.9 H Albumin 2.4 L 11/11/20 11/11/20 08:02 12:10 Sodium Potassium Chloride Carbon Dioxide Anion Gap BUN Creatinine Estim Creat Clear Calc Estimated GFR Glucose POC Capillary Glucose 106 H 139 H Calcium Phosphorus Albumin Post-procedural complaints: none Patient Feedback: Patient satisfied with anesthetic care.
--- NOTE | 2020-11-11 15:55 | PM.IMPN ---
Progress Note: A&P Assessment and Plan (1) Infection of right below knee amputation: Code(s): T87.43 - Infection of amputation stump, right lower extremity Status: Acute Assessment and Plan: S/p debridement and wound vac placement on 10/20; Ortho and ID following. wound covered vac looks to be improving continue orthopedic follow-up. Wound VAC dressing change per orthopedics Abx Completed Unasyn for aspiration pneumonitis /pneumonia. She was on cefepime, Flagyl, vancomycin and p.o. vancomycin earlier which has been stopped after she had received it for 11-12 days while p.o. vancomycin for 14 days. Infectious disease service is following. WBC is better. will continue with IV antibiotics. (2) UTI (urinary tract infection): Qualifiers: Hematuria presence: without hematuria Urinary tract infection type: acute cystitis Qualified Code(s): N30.00 - Acute cystitis without hematuria Code(s): N39.0 - Urinary tract infection, site not specified Status: Acute Assessment and Plan: Resolved. She was on cefepime, Flagyl and vancomycin earlier but now currently on Unasyn. she had received all these antibiotic for 11-12 days. She has finished a course of p.o. vancomycin for C diff colitis. Her blood culture grew coagulase negative Staphylococcus likely contaminant. repeat blood cultures are pending Urine culture grew E coli and Pseudomonas aeruginosa. Pseudomonas aeruginosa was pretty pansensitive Including cefepime. E coli was sensitive to cefepime as well. 11/06/2020 Will continue with IV antibiotics. ID following (3) Septic shock: Code(s): A41.9 - Sepsis, unspecified organism; R65.21 - Severe sepsis with septic shock Status: Acute Assessment and Plan: Resolved. Off pressors since 10/14. (4) C. difficile colitis: Code(s): A04.72 - Enterocolitis due to Clostridium difficile, not specified as recurrent Status: Acute Assessment and Plan: Completed the course of p.o. vancomycin for 14 days. (5) Acute renal failure superimposed on stage 4 chronic kidney disease: Qualifiers: Acute renal failure type: unspecified Qualified Code(s): N17.9 - Acute kidney failure, unspecified; N18.4 - Chronic kidney disease, stage 4 (severe) Code(s): N17.9 - Acute kidney failure, unspecified; N18.4 - Chronic kidney disease, stage 4 (severe) Status: Acute Assessment and Plan: Cr 4.0 Baseline Cr typically ~3.00 with variability. Nephrology following; appreciate rec. Renal US as noted above. cont Nephrology recommendations Monitor fluid status Continue to monitor renal parameters and electrolytes. (6) Acute on chronic respiratory failure with hypoxia and hypercapnia: Code(s): J96.21 - Acute and chronic respiratory failure with hypoxia; J96.22 - Acute and chronic respiratory failure with hypercapnia Status: Resolved Assessment and Plan: Resolved; presented with respiratory acidosis and increased lethargy requiring intubation. Patient extubated and was reintubated on likely secondary to an episode of aspiration pneumonitis/pneumonia versus hypercarbia. she was extubated 10/30 current saturating well on nasal cannula incentive spirometry continued Unasyn for 7 days until 11/05/20 (7) Normal anion gap metabolic acidosis: Code(s): E87.2 - Acidosis Status: Resolved Assessment and Plan: secondary renal disease p.o. bicarb nephro following (8) Hypertension: Qualifiers: Hypertension type: essential hypertension Qualified Code(s): I10 - Essential (primary) hypertension Code(s): I10 - Essential (primary) hypertension Status: Chronic Assessment and Plan: blood pressure elevated. patient is currently on amlodipine, clonidine, hydralazine and metoprolol. increase clonidine to t.i.d. and resume Cardura still elevated
[2020-11-11 17:30] LABS: Glucose Point of Care 152 mg/dl (65-105)
[2020-11-11] MEDS: FUROSEMIDE 80 MG TABLET PO (17:35)
[2020-11-11 22:47] LABS: Glucose Point of Care 180 mg/dl (65-105)
[2020-11-12] VITALS (22 sets, daily range): BP systolic 134–171; BP diastolic 59–84; PULSE 68–95; RESP 16–20; TEMP 36.4–37.5; O2SAT 91–97
[2020-11-12] MEDS: IPRATROPIUM BR 0.02% INH SOLN 0.5 MG/2.5 ML VIAL INHALATION ×4 (01:26→19:59)
[2020-11-12] MEDS: ALBUTEROL SULFATE NEB 2.5 MG/0.5 ML INH INHALATION ×4 (01:26→19:59)
[2020-11-12] MEDS: AMPICILLIN SULB 1.5 GM/NS 50ML 1.5 GM/50 ML VIAL IVPB ×2 (06:24→19:12)
[2020-11-12 08:05] LABS: Glucose Point of Care 120 mg/dl (65-105)
[2020-11-12 08:11] LABS: Albumin Level 2.4 g/dL (3.5-5.1); Anion Gap 10 mmol/L (8-16); Blood Urea Nitrogen 65 mg/dL (7-17); Calcium 7.7 mg/dL (8.4-10.2); Carbon Dioxide 26 mmol/L (22-30); Chloride 97 mmol/L (98-107); Estimated CRCL calculation 14 ml/min; Estimated Glomerular Filt Rate 9; Glucose 117 mg/dL (65-110); Phosphorus 4.9 mg/dL (2.5-4.5); Potassium 3.3 mmol/L (3.4-5.0); Sodium 133 mmol/L (137-145)
[2020-11-12] MEDS: TOLNAFTATE 1% POWDER 45 GM BTL 1 APPLIC TOPICAL ×2 (09:13→21:52)
[2020-11-12] MEDS: HEPARIN SODIUM 5,000 UNITS/ML VIAL 5000 UNITS SUB-Q ×2 (09:13→21:51)
[2020-11-12] MEDS: FUROSEMIDE 80 MG TABLET PO (09:13)
[2020-11-12] MEDS: DOCUSATE SODIUM 100 MG CAPSULE PO (09:15)
[2020-11-12] MEDS: FERROUS SULFATE 324 MG TABLET PO (09:15)
[2020-11-12] MEDS: METOPROLOL TARTRATE 50 MG TAB 100 MG PO ×2 (09:15→21:52)
[2020-11-12] MEDS: PANTOPRAZOLE SODIUM IV 40 MG VIAL IV PUSH (09:15)
[2020-11-12] MEDS: ASPIRIN 81 MG ENTERIC TABLET PO (09:15)
[2020-11-12 12:16] LABS: Glucose Point of Care 136 mg/dl (65-105)
[2020-11-12] MEDS: POTASSIUM CHLORIDE 20 MEQ TABLET PO (14:48)
--- NOTE | 2020-11-12 14:48 | P.PNNP_ITS ---
Progress Note: A&P Assessment and Plan (1) Chronic kidney disease, stage 4 (severe): Code(s): N18.4 - Chronic kidney disease, stage 4 (severe) Status: Chronic Assessment and Plan: * creatinine is up and down. Her baseline is around 3. * follows with Dr. Pena for CKD management * most likely due to diabetes, hypertension, and vascular disease * the patient has acute kidney injury on top of CKD. * Urine sodium was not low but she is on diuretics. * Repeat ultrasound shows no hydronephrosis * her creatinine continues to rise. * She received dialysis yesterday. 4L were removed. * Due for dialysis today. (2) Metabolic acidosis: Code(s): E87.2 - Acidosis Status: Acute Assessment and Plan: * Resolved (3) Septic shock: Code(s): A41.9 - Sepsis, unspecified organism; R65.21 - Severe sepsis with septic shock Status: Acute Assessment and Plan: * resolved (4) Hypertension: Qualifiers: Hypertension type: essential hypertension Qualified Code(s): I10 - Essential (primary) hypertension Code(s): I10 - Essential (primary) hypertension Status: Chronic Assessment and Plan: * blood pressure under good control (5) Anemia: Code(s): D64.9 - Anemia, unspecified Status: Chronic Assessment and Plan: * due to underlying CKD and acute illness * on Epogen * hemoglobin is stable in the 8s * Reticulocyte count is good at 3.87. 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 Comfortable today. Still swollen. No shortness of breath. Exam Narrative: General: WD/WN female in NAD Heart: normal S1 and S2; no rub Lungs: Clear to auscultation Abdomen: soft, nontender, nondistended, positive bowel sounds Extremities: no cyanosis or clubbing; 1-2+ edema; s/p right BKA Skin: wound vac in place on the right stump Objective Data Vital Signs Vital Signs: Vital Signs - 24 hr 11/11/20 16:00 11/11/20 20:14 11/11/20 20:21 Temperature 36.8 C Pulse Rate 83 92 86 Respiratory Rate 18 20 20 Blood Pressure 162/63 H Pulse Oximetry 94 92 11/11/20 22:51 11/11/20 23:07 11/12/20 01:27 Temperature 36.1 C L Pulse Rate 92 69 Respiratory Rate 22 H 18 20 Blood Pressure 150/60 H Pulse Oximetry 95 97 11/12/20 01:34 11/12/20 06:46 11/12/20 08:00 Temperature 36.4 C L Pulse Rate 68 76 70 Respiratory Rate 16 18 20 Blood Pressure 134/62 168/61 H Pulse Oximetry 94 93 11/12/20 08:21 11/12/20 08:25 11/12/20 08:29 Temperature Pulse Rate 84 81 Respiratory Rate 18
--- NOTE | 2020-11-12 14:48 | PM.PNNEP ---
Progress Note: A&P Assessment and Plan (1) Chronic kidney disease, stage 4 (severe): Code(s): N18.4 - Chronic kidney disease, stage 4 (severe) Status: Chronic Assessment and Plan: creatinine is up and down. Her baseline is around 3. follows with Dr. Pena for CKD management most likely due to diabetes, hypertension, and vascular disease the patient has acute kidney injury on top of CKD. Urine sodium was not low but she is on diuretics. Repeat ultrasound shows no hydronephrosis her creatinine continues to rise. She received dialysis yesterday. 4L were removed. Due for dialysis today. (2) Metabolic acidosis: Code(s): E87.2 - Acidosis Status: Acute Assessment and Plan: Resolved (3) Septic shock: Code(s): A41.9 - Sepsis, unspecified organism; R65.21 - Severe sepsis with septic shock Status: Acute Assessment and Plan: resolved (4) Hypertension: Qualifiers: Hypertension type: essential hypertension Qualified Code(s): I10 - Essential (primary) hypertension Code(s): I10 - Essential (primary) hypertension Status: Chronic Assessment and Plan: blood pressure under good control (5) Anemia: Code(s): D64.9 - Anemia, unspecified Status: Chronic Assessment and Plan: due to underlying CKD and acute illness on Epogen hemoglobin is stable in the 8s Reticulocyte count is good at 3.87. 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 Comfortable today. Still swollen. No shortness of breath. Exam Narrative: General: WD/WN female in NAD Heart: normal S1 and S2; no rub Lungs: Clear to auscultation Abdomen: soft, nontender, nondistended, positive bowel sounds Extremities: no cyanosis or clubbing; 1-2+ edema; s/p right BKA Skin: wound vac in place on the right stump Objective Data Vital Signs Vital Signs: Vital Signs - 24 hr 11/11/20 16:00 11/11/20 20:14 11/11/20 20:21 Temperature 36.8 C Pulse Rate 83 92 86 Respiratory Rate 18 20 20 Blood Pressure 162/63 H Pulse Oximetry 94 92 11/11/20 22:51 11/11/20 23:07 11/12/20 01:27 Temperature 36.1 C L Pulse Rate 92 69 Respiratory Rate 22 H 18 20 Blood Pressure 150/60 H Pulse Oximetry 95 97 11/12/20 01:34 11/12/20 06:46 11/12/20 08:00 Temperature 36.4 C L Pulse Rate 68 76 70 Respiratory Rate 16 18 20 Blood Pressure 134/62 168/61 H Pulse Oximetry 94 93 11/12/20 08:21 11/12/20 08:25 11/12/20 08:29 Temperature Pulse Rate 84 81 Respiratory Rate 18 18 Blood Pressure Pulse Oximetry 95 11/12/20 09:15 11/12/20 13:51 11/12/20 13:58 Temperature Pulse Rate 81 86 85 Respiratory Rate 18 18 Blood Pressure Pulse Oximetry 91 Intake/Output Intake/Output: Intake & Output 11/09/20 11/10/20 11/11/20 11/12/20 23:59 23:59 23:59 23:59 Intake Total 9038 577 2987 860 Output Total 1700 4500 2775 1400 [facility] -124 -4150 -1115 -540 Meds/Results Medications: Active Medications Generic Name Dose Route Start Last Admin Trade Name Balajiq PRN Reason Stop Dose Admin Acetaminophen 650 mg 10/14/20 21:52 11/10/20 21:38 Acetaminophen 325 Mg Tablet PO 650 mg Q6H PRN Administration Mild Pain (1-3) or Fever Albuterol 2.5 mg 10/29/20 14:45
--- NOTE | 2020-11-12 16:05 | PM.IMPN ---
Progress Note: A&P Assessment and Plan (1) Infection of right below knee amputation: Code(s): T87.43 - Infection of amputation stump, right lower extremity Status: Acute Assessment and Plan: S/p debridement and wound vac placement on 10/20; Ortho and ID following. wound covered vac looks to be improving continue orthopedic follow-up. Wound VAC dressing change per orthopedics Abx Completed Unasyn for aspiration pneumonitis /pneumonia. She was on cefepime, Flagyl, vancomycin and p.o. vancomycin earlier which has been stopped after she had received it for 11-12 days while p.o. vancomycin for 14 days. Infectious disease service is following. 11/12: WBC 7.9 Continue Unasyn (2) UTI (urinary tract infection): Qualifiers: Hematuria presence: without hematuria Urinary tract infection type: acute cystitis Qualified Code(s): N30.00 - Acute cystitis without hematuria Code(s): N39.0 - Urinary tract infection, site not specified Status: Acute Assessment and Plan: Resolved. She was on cefepime, Flagyl and vancomycin earlier but now currently on Unasyn. she had received all these antibiotic for 11-12 days. She has finished a course of p.o. vancomycin for C diff colitis. (3) Septic shock: Code(s): A41.9 - Sepsis, unspecified organism; R65.21 - Severe sepsis with septic shock Status: Acute Assessment and Plan: Resolved. Off pressors since 10/14. (4) C. difficile colitis: Code(s): A04.72 - Enterocolitis due to Clostridium difficile, not specified as recurrent Status: Acute Assessment and Plan: Completed the course of p.o. vancomycin for 14 days. (5) Acute renal failure superimposed on stage 4 chronic kidney disease: Qualifiers: Acute renal failure type: unspecified Qualified Code(s): N17.9 - Acute kidney failure, unspecified; N18.4 - Chronic kidney disease, stage 4 (severe) Code(s): N17.9 - Acute kidney failure, unspecified; N18.4 - Chronic kidney disease, stage 4 (severe) Status: Acute Assessment and Plan: Cr 4.0 Baseline Cr typically ~3.00 with variability. Nephrology following; appreciate rec. Renal US as noted above. Dialysis 8/8 PM (6) Acute on chronic respiratory failure with hypoxia and hypercapnia: Code(s): J96.21 - Acute and chronic respiratory failure with hypoxia; J96.22 - Acute and chronic respiratory failure with hypercapnia Status: Resolved Assessment and Plan: Resolved; presented with respiratory acidosis and increased lethargy requiring intubation. Patient extubated and was reintubated on likely secondary to an episode of aspiration pneumonitis/pneumonia versus hypercarbia. she was extubated 10/30 current saturating well on nasal cannula incentive spirometry continued Unasyn for 7 days until 11/05/20 (7) Normal anion gap metabolic acidosis: Code(s): E87.2 - Acidosis Status: Resolved Assessment and Plan: secondary renal disease p.o. bicarb nephro following (8) Hypertension: Qualifiers: Hypertension type: essential hypertension Qualified Code(s): I10 - Essential (primary) hypertension Code(s): I10 - Essential (primary) hypertension Status: Chronic Assessment and Plan: blood pressure elevated. patient is currently on amlodipine, clonidine, hydralazine and metoprolol. increase clonidine to t.i.d. and resume Cardura still elevated -> dc amlodipine add nifedipine continue Hydralazine on as needed basis a blood pressure is elevated. 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
[2020-11-12] MEDS: EPOETIN ALFA-EPBX 10,000 UNITS/ML VIAL 10000 UNITS IV PUSH (16:45)
[2020-11-12 19:01] LABS: Glucose Point of Care 145 mg/dl (65-105)
[2020-11-12 22:06] LABS: Glucose Point of Care 217 mg/dl (65-105)
[2020-11-13] VITALS (13 sets, daily range): BP systolic 168–184; BP diastolic 58–81; PULSE 79–95; RESP 16–30; TEMP 36.3–36.4; O2SAT 91–96
[2020-11-13] MEDS: ALBUTEROL SULFATE NEB 2.5 MG/0.5 ML INH INHALATION ×4 (02:06→23:41)
[2020-11-13] MEDS: IPRATROPIUM BR 0.02% INH SOLN 0.5 MG/2.5 ML VIAL INHALATION ×4 (02:07→23:41)
[2020-11-13] MEDS: AMPICILLIN SULB 1.5 GM/NS 50ML 1.5 GM/50 ML VIAL IVPB (06:07)
[2020-11-13 06:57] LABS: Albumin Level 2.3 g/dL (3.5-5.1); Anion Gap 7 mmol/L (8-16); Blood Urea Nitrogen 43 mg/dL (7-17); Calcium 7.7 mg/dL (8.4-10.2); Carbon Dioxide 29 mmol/L (22-30); Chloride 97 mmol/L (98-107); Estimated CRCL calculation 21 ml/min; Estimated Glomerular Filt Rate 15; Glucose 117 mg/dL (65-110); Phosphorus 4.1 mg/dL (2.5-4.5); Potassium 3.5 mmol/L (3.4-5.0); Sodium 133 mmol/L (137-145)
[2020-11-13] MEDS: PANTOPRAZOLE SODIUM IV 40 MG VIAL IV PUSH (08:00)
[2020-11-13] MEDS: METOPROLOL TARTRATE 50 MG TAB 100 MG PO ×2 (08:00→20:53)
[2020-11-13] MEDS: ASPIRIN 81 MG ENTERIC TABLET PO (08:01)
[2020-11-13] MEDS: FUROSEMIDE 80 MG TABLET PO ×2 (08:01→17:10)
[2020-11-13] MEDS: DOCUSATE SODIUM 100 MG CAPSULE PO ×2 (08:01→17:10)
[2020-11-13] MEDS: FERROUS SULFATE 324 MG TABLET PO (08:01)
[2020-11-13] MEDS: TOLNAFTATE 1% POWDER 45 GM BTL 1 APPLIC TOPICAL ×2 (08:01→20:54)
[2020-11-13] MEDS: HEPARIN SODIUM 5,000 UNITS/ML VIAL 5000 UNITS SUB-Q ×2 (08:01→20:53)
[2020-11-13 08:28] LABS: Glucose Point of Care 118 mg/dl (65-105)
--- NOTE | 2020-11-13 10:48 | PM.PNORT ---
Progress Note: A&P Assessment and Plan (1) Delayed surgical wound healing of [id number] amputation stump: Code(s): T87.89 - Other complications of amputation stump; T81.89XA - Other complications of procedures, not elsewhere classified, initial encounter Status: Acute Assessment and Plan: Wound VAC dressing changed. Serous drainage. Scant sanguinous drainage. Surrounding tissue without redness, warmth or signs of infection. Swelling improved. No new necrosis noted. Marked improvement in dimensions. Continue nutritional support. Will plan for wound VAC dressing change three times weekly. Will continue to follow. Subjective Subjective Date/Time Seen: 11/13/20 10:48 Concerned about understanding overall medical care plan. No new concerns regarding stump wound. Complains of pain of right neck, notable ecchymosis from central line. Sutures intact. Review of Systems Review of Systems: All systems reviewed & are unremarkable except as noted in HPI and below Exam Const: General: cooperative, comfortable, no acute distress and awake Nutritional Appearance: obese HENMT: Head: normal to inspection, normocephalic and atraumatic Eyes: Conjunctivae: conjunctivae normal Sclera: sclerae normal Neck: Neck: supple and nontender GI: Inspection: non-distended GI Palp: Yes Soft to palpation, No Tenderness to palpation present (GI) and No Guarding due to palpation present (GI) : General: Yes deferred Skin: Wounds: wounds noted (see below ) Extrem: Right lower extremity: hip/thigh Details: normal to inspection, knee Details: normal to inspection; no tenderness and lower leg (Below-knee amputation.) Left lower extremity: hip/thigh Details: normal to inspection, knee Details: abnormal ROM ( range of motion deferred secondary to fracture), ankle (no calf tenderness) Details: normal to inspection, abnormal ROM Details: with range as follows ( Minimal range of motion ankle and hindfoot secondary to fusion); no pain with active ROM and no pain with passive ROM and other ( good capillary refill in toes, 2+ DP pulse, light touch sensation intact); no tenderness ( lateral malleolus, anterior ankle and medial ankle) and no swelling ( moderate anterior ankle, moderate lateral ankle) and foot Details: normal capillary refill, toes with normal ROM, vascular exam Details: dorsalis pedis pulse present and normal capillary refill, tendon exam active flexion normal and active extension normal and motor-sensory exam two point discrimination normal and light-touch normal; no tenderness Other: Lower extremity edema improved. Right BKA wound VAC dressing changed. Wound bed 80% red/pink and 20% yellow. No necrosis. No malodor. Surrounding tissue with no signs of infection. Serosanguineous drainage in chamber. No purulence or signs of infection. Wound measures 12.0cm x 4.0 cmx 0.5cm. Psych: Affect: normal affect Objective Data Vital Signs Vital Signs: Vital Signs - 24 hr 11/12/20 13:51 11/12/20 13:58 11/12/20 16:00 Temperature 37.3 C Pulse Rate 86 85 83 Respiratory Rate 18 18 20 Blood Pressure 155/59 H Pulse Oximetry 91 95 11/12/20 16:25 11/12/20 16:30 11/12/20 17:00 Temperature 36.7 C Pulse Rate 80 77 75 Respiratory Rate 18 Blood Pressure 168/83 H 165/83 H 168/81 H Pulse Oximetry 11/12/20 17:30 11/12/20 18:00 11/12/20 18:30 Temperature Pulse Rate 76 75 75 Respiratory Rate Blood Pressure 171/79 H 164/63 H 160/84 H Pulse Oximetry 11/12/20 19:00 11/12/20 19:08 11/12/20 20:00 Temperature 36.6 C Pulse Rate 82 82 91 Respiratory Rate 20 18 Blood Pressure 147/77 H 163/75 H Pulse Oximetry 11/12/20 20:09 11/12/20 21:47 11/13/20 02:07 Temperature 37.5 C Pulse Rate 95 90 87 Respiratory Rate 20 18 18 Blood Pressure 154/64 H Pulse Oximetry 97 11/13/20 02:17 11/13/20 08:00 11/13/20 08:11 Temperature 36.4 C L Pulse Rate 95 86 91 Respiratory Rate 20 30 H 16 Blood Pressure
--- NOTE | 2020-11-13 11:31 | PCNFU ---
Nutrition Follow-Up Complete: Inadequate oral intake related to oral intubation/mechanical ventilation as evidenced by NPO status. Goal: Patient to meet estimated nutritional needs. Patient is progressing towards goal. We will continue current goal. Pt current nutrition is Renal Dialysis/[facility] Last recorded weight is 117.2 kg, down from 134 kg on admit. Bowel Motility:+BM reported 11/10 Labs Reviewed:GFR 15,Glu 117,Alb 2.3, Cr 3.0,BUN 43 Meds Noted:Colace, Protonix,Atrovent,Lasix. Additional Notes: Patient tolerating diabetic/renal dialysis diet, eating 75-100% of meals. Skin: right leg wound vac. Renal labs trending down. Monitoring: Follow up every 5 days.
[2020-11-13 12:45] LABS: Glucose Point of Care 145 mg/dl (65-105)
[2020-11-13 13:41] LABS: Hepatitis B Core Ab Total Nonreactive (Nonreactive)
--- NOTE | 2020-11-13 13:45 | P.PNIM_ITS ---
Progress Note: A&P Assessment and Plan (1) Infection of right below knee amputation: Code(s): T87.43 - Infection of amputation stump, right lower extremity Status: Acute Assessment and Plan: S/p debridement and wound vac placement on 10/20; Ortho and ID following. wound covered vac looks to be improving * continue orthopedic follow-up. Wound VAC dressing change per orthopedics * Abx Completed Unasyn for aspiration pneumonitis /pneumonia. She was on cefepime, Flagyl, vancomycin and p.o. vancomycin earlier which has been stopped after she had received it for 11-12 days while p.o. vancomycin for 14 days. * Infectious disease service is following. 11/12: WBC 7.9 Continue Unasyn (2) UTI (urinary tract infection): Qualifiers: Hematuria presence: without hematuria Urinary tract infection type: acute cystitis Qualified Code(s): N30.00 - Acute cystitis without hematuria Code(s): N39.0 - Urinary tract infection, site not specified Status: Acute Assessment and Plan: Resolved. She was on cefepime, Flagyl and vancomycin earlier but now currently on Unasyn. she had received all these antibiotic for 11-12 days. She has finished a course of p.o. vancomycin for C diff colitis. (3) Septic shock: Code(s): A41.9 - Sepsis, unspecified organism; R65.21 - Severe sepsis with septic shock Status: Acute Assessment and Plan: Resolved. Off pressors since 10/14. (4) C. difficile colitis: Code(s): A04.72 - Enterocolitis due to Clostridium difficile, not specified as recurrent Status: Acute Assessment and Plan: Completed the course of p.o. vancomycin for 14 days. (5) Acute renal failure superimposed on stage 4 chronic kidney disease: Qualifiers: Acute renal failure type: unspecified Qualified Code(s): N17.9 - Acute kidney failure, unspecified; N18.4 - Chronic kidney disease, stage 4 (severe) Code(s): N17.9 - Acute kidney failure, unspecified; N18.4 - Chronic kidney disease, stage 4 (severe) Status: Acute Assessment and Plan: Cr 4.0 Baseline Cr typically ~3.00 with variability. Nephrology following; appreciate rec. Renal US as noted above. * Dialysis 8/8 PM (6) Acute on chronic respiratory failure with hypoxia and hypercapnia: Code(s): J96.21 - Acute and chronic respiratory failure with hypoxia; J96.22 - Acute and chronic respiratory failure with hypercapnia Status: Resolved Assessment and Plan: Resolved; presented with respiratory acidosis and increased lethargy requiring intubation. Patient extubated and was reintubated on likely secondary to an episode of aspiration pneumonitis/pneumonia versus hypercarbia. she was extubated 10/30 current saturating well on nasal cannula incentive spirometry continued Unasyn for 7 days until 11/05/20 (7) Normal anion gap metabolic acidosis: Code(s): E87.2 - Acidosis Status: Resolved Assessment and Plan: secondary renal disease p.o. bicarb nephro following (8) Hypertension: Qualifiers: Hypertension type: essential hypertension Qualified Code(s): I10 - Essential (primary) hypertension Code(s): I10 - Essential (primary) hypertension Status: Chronic Assessment and Plan: blood pressure elevated. patient is currently on amlodipine, clonidine, hydralazine and metoprolol. increase clonidine to t.i.d. and resume Cardura still elevated -> dc amlodipine add nifedipine continue Hydralazine on as needed basis a blood pressure is elevated.
--- NOTE | 2020-11-13 16:36 | P.PNNP_ITS ---
Progress Note: A&P Assessment and Plan (1) SARAH (acute kidney injury): Code(s): N17.9 - Acute kidney failure, unspecified Status: Acute Assessment and Plan: * suspect due to infection and fluctuating hemodynamics leading to ATN * evaluation to date: - urine sodium not low but she is on diuretics - renal ultrasound with obstruction * given rising creatinine and fluctuating urine output, initiated on renal replacement therapy/dialysis * unclear if recovery will occur given her advanced CKD at baseline * follow trend of repeat labs and urine output * plan next HD treatment tomorrow (2) Chronic kidney disease, stage 4 (severe): Code(s): N18.4 - Chronic kidney disease, stage 4 (severe) Status: Chronic Assessment and Plan: * creatinine is up and down during this hospital stay * baseline creatinine runs around the 3ish range * most likely due to diabetes, hypertension, and vascular disease * follows with Dr. Pena for CKD management (3) Hypertension: Qualifiers: Hypertension type: essential hypertension Qualified Code(s): I10 - Essential (primary) hypertension Code(s): I10 - Essential (primary) hypertension Status: Chronic Assessment and Plan: * running on the high side at this time * follow trend and suspect dialysis will help control * consider titration of metoprolol versus adding another agent (i.e. hydralazine or amlodipine) (4) Anemia: Code(s): D64.9 - Anemia, unspecified Status: Chronic Assessment and Plan: * due to SARHA, underlying CKD, and acute illness * on Epogen * follow trend of H/H (5) Delayed surgical wound healing of [id number] amputation stump: Code(s): T87.89 - Other complications of amputation stump; T81.89XA - Other complications of procedures, not elsewhere classified, initial encounter Status: Acute Assessment and Plan: * Orthopedics following * wound vac in place * local wound care (6) Type 2 diabetes mellitus: Qualifiers: Chronic kidney disease stage: stage 4 (severe) Diabetes mellitus complication detail: with chronic kidney disease Diabetes mellitus complication status: with kidney complications Diabetes mellitus custodial insulin use: without custodial use Qualified Code(s): E11.22 - Type 2 diabetes mellitus with diabetic chronic kidney disease; N18.4 - Chronic kidney disease, stage 4 (severe) Code(s): E11.9 - Type 2 diabetes mellitus without complications Status: Chronic Assessment and Plan: * follow accuchecks * on SSI Will continue to follow. Subjective Date/time seen: 11/13/20 16:36 Chart reviwed - assuming care from Dr. Pollard; tolerated dialysis treatment yesterday without any issues or problems; actually making reasonable urine output with oral diuretic therapy; no apparent distress voiced at the time of my visit; no events/issues overnight or earlier this AM. Exam Narrative: General: WD/WN female in NAD Heart: normal S1 and S2; no rub Lungs: Clear to auscultation Abdomen: soft, nontender, nondistended, positive bowel sounds Extremities: no cyanosis or clubbing; 1+ edema; s/p right BKA Skin: wound vac in place on the right stump Objective Data Vital Signs Vital Signs: Vital Signs Temp Pulse Resp BP Pulse Ox 11/13/20 15:20 36.3 C L 79 177/64 H 96 11/13/20 15:18 26 H
--- NOTE | 2020-11-13 16:36 | PM.PNNEP ---
Progress Note: A&P Assessment and Plan (1) SARAH (acute kidney injury): Code(s): N17.9 - Acute kidney failure, unspecified Status: Acute Assessment and Plan: suspect due to infection and fluctuating hemodynamics leading to ATN evaluation to date: - urine sodium not low but she is on diuretics - renal ultrasound with obstruction given rising creatinine and fluctuating urine output, initiated on renal replacement therapy/dialysis unclear if recovery will occur given her advanced CKD at baseline follow trend of repeat labs and urine output plan next HD treatment tomorrow (2) Chronic kidney disease, stage 4 (severe): Code(s): N18.4 - Chronic kidney disease, stage 4 (severe) Status: Chronic Assessment and Plan: creatinine is up and down during this hospital stay baseline creatinine runs around the 3ish range most likely due to diabetes, hypertension, and vascular disease follows with Dr. Pena for CKD management (3) Hypertension: Qualifiers: Hypertension type: essential hypertension Qualified Code(s): I10 - Essential (primary) hypertension Code(s): I10 - Essential (primary) hypertension Status: Chronic Assessment and Plan: running on the high side at this time follow trend and suspect dialysis will help control consider titration of metoprolol versus adding another agent (i.e. hydralazine or amlodipine) (4) Anemia: Code(s): D64.9 - Anemia, unspecified Status: Chronic Assessment and Plan: due to SARAH, underlying CKD, and acute illness on Epogen follow trend of H/H (5) Delayed surgical wound healing of [id number]-[id number] amputation stump: Code(s): T87.89 - Other complications of amputation stump; T81.89XA - Other complications of procedures, not elsewhere classified, initial encounter Status: Acute Assessment and Plan: Orthopedics following wound vac in place local wound care (6) Type 2 diabetes mellitus: Qualifiers: Chronic kidney disease stage: stage 4 (severe) Diabetes mellitus complication detail: with chronic kidney disease Diabetes mellitus complication status: with kidney complications Diabetes mellitus superintendent container terminal insulin use: without custodial use Qualified Code(s): E11.22 - Type 2 diabetes mellitus with diabetic chronic kidney disease; N18.4 - Chronic kidney disease, stage 4 (severe) Code(s): E11.9 - Type 2 diabetes mellitus without complications Status: Chronic Assessment and Plan: follow accuchecks on SSI Will continue to follow. Subjective Date/time seen: 11/13/20 16:36 Chart reviwed - assuming care from Dr. Pollard; tolerated dialysis treatment yesterday without any issues or problems; actually making reasonable urine output with oral diuretic therapy; no apparent distress voiced at the time of my visit; no events/issues overnight or earlier this AM. Exam Narrative: General: WD/WN female in NAD Heart: normal S1 and S2; no rub Lungs: Clear to auscultation Abdomen: soft, nontender, nondistended, positive bowel sounds Extremities: no cyanosis or clubbing; 1+ edema; s/p right BKA Skin: wound vac in place on the right stump Objective Data Vital Signs Vital Signs: Vital Signs Temp Pulse Resp BP Pulse Ox 11/13/20 15:20 36.3 C L 79 177/64 H 96 11/13/20 15:18 26 H 11/13/20 14:32 95 16 11/13/20 14:26 90 16 11/13/20 10:00 92 11/13/20 08:17 95 16 11/13/20 08:12 96 11/13/20 08:11 91 16 11/13/20 08:00 36.4 C L 86 30 H 168/58 H 91 11/13/20 02:17 95 20 11/13/20 02:07 87 18 11/12/20 21:47 37.5 C 90 18 154/64 H 97 11/12/20 20:09 95 20 11/12/20 20:00 91 18 11/12/20 19:08 36.6 C 82 20 163/75 H 11/12/20 19:00 82 147/77 H Intake/Output Intake/Output: Intake & Output 11/10/20 11/11/20 11/12/20 11/13/20 23:59
[2020-11-13 16:52] LABS: Glucose Point of Care 184 mg/dl (65-105)
[2020-11-13 22:06] LABS: Glucose Point of Care 239 mg/dl (65-105)
[2020-11-13] MEDS: hydrALAZINE HCL 20 MG/ML VIAL 10 MG IV PUSH (23:30)
--- NOTE | 2020-11-13 23:42 | PCRCNOTE ---
Window of time for administration has passed. See next scheduled administration.
[2020-11-14] VITALS (13 sets, daily range): BP systolic 174–196; BP diastolic 69–80; PULSE 75–96; RESP 16–24; TEMP 36.1–37.1; O2SAT 93–100
[2020-11-14] MEDS: ALBUTEROL SULFATE NEB 2.5 MG/0.5 ML INH INHALATION ×4 (01:50→20:12)
[2020-11-14] MEDS: IPRATROPIUM BR 0.02% INH SOLN 0.5 MG/2.5 ML VIAL INHALATION ×4 (01:50→20:12)
--- NOTE | 2020-11-14 05:49 | PC.NURSE ---
Hospitalist notified of BP 196/80. Ordered to give all morning BP meds early for now. One time IV hydralazine given earlier and did not help decrease it. Patient denies pain/discomfort.
[2020-11-14] MEDS: FUROSEMIDE 80 MG TABLET PO ×2 (05:52→17:21)
[2020-11-14] MEDS: METOPROLOL TARTRATE 50 MG TAB 100 MG PO ×2 (05:53→20:52)
[2020-11-14 06:37] LABS: Albumin Level 2.6 g/dL (3.5-5.1); Anion Gap 7 mmol/L (8-16); Blood Urea Nitrogen 44 mg/dL (7-17); Calcium 8.3 mg/dL (8.4-10.2); Carbon Dioxide 29 mmol/L (22-30); Chloride 99 mmol/L (98-107); Estimated CRCL calculation 21 ml/min; Estimated Glomerular Filt Rate 15; Glucose 139 mg/dL (65-110); Phosphorus 3.7 mg/dL (2.5-4.5); Potassium 3.2 mmol/L (3.4-5.0); Sodium 135 mmol/L (137-145)
[2020-11-14] MEDS: FERROUS SULFATE 324 MG TABLET PO (08:26)
[2020-11-14] MEDS: DOCUSATE SODIUM 100 MG CAPSULE PO ×2 (08:26→17:21)
[2020-11-14] MEDS: ASPIRIN 81 MG ENTERIC TABLET PO (08:26)
[2020-11-14] MEDS: PANTOPRAZOLE SODIUM IV 40 MG VIAL IV PUSH (08:26)
[2020-11-14] MEDS: HEPARIN SODIUM 5,000 UNITS/ML VIAL 5000 UNITS SUB-Q ×2 (08:27→20:52)
[2020-11-14] MEDS: TOLNAFTATE 1% POWDER 45 GM BTL 1 APPLIC TOPICAL ×2 (08:27→20:52)
[2020-11-14 08:35] LABS: Glucose Point of Care 141 mg/dl (65-105)
--- NOTE | 2020-11-14 09:24 | PM.PNORT ---
Progress Note: A&P Assessment and Plan (1) Delayed surgical wound healing of kayvu-mju-zaqh amputation stump: Code(s): T87.89 - Other complications of amputation stump; T81.89XA - Other complications of procedures, not elsewhere classified, initial encounter Status: Acute Assessment and Plan: Wound VAC dressing intact, functioning well. Serous drainage. Surrounding tissue without redness, warmth or signs of infection. Swelling improved. No new necrosis noted. Continue nutritional support. Will plan for wound VAC dressing change three times weekly. Will change tomorrow. Will continue to follow. Subjective Subjective Date/Time Seen: 11/14/20 09:24 No new complaints today. Neck pain improved. Still with questions regarding overall plan of care and potential for discharge to nursing facility. Review of Systems Review of Systems: All systems reviewed & are unremarkable except as noted in HPI and below Exam Const: General: cooperative, comfortable, no acute distress and awake Nutritional Appearance: obese HENMT: Head: normal to inspection, normocephalic and atraumatic Eyes: Conjunctivae: conjunctivae normal Sclera: sclerae normal Neck: Neck: supple and nontender GI: Inspection: non-distended GI Palp: Yes Soft to palpation, No Tenderness to palpation present (GI) and No Guarding due to palpation present (GI) : General: Yes deferred Skin: Wounds: wounds noted (see below ) Extrem: Right lower extremity: hip/thigh Details: normal to inspection, knee Details: normal to inspection; no tenderness and lower leg (Below-knee amputation.) Left lower extremity: hip/thigh Details: normal to inspection, knee Details: abnormal ROM ( range of motion deferred secondary to fracture), ankle (no calf tenderness) Details: normal to inspection, abnormal ROM Details: with range as follows ( Minimal range of motion ankle and hindfoot secondary to fusion); no pain with active ROM and no pain with passive ROM and other ( good capillary refill in toes, 2+ DP pulse, light touch sensation intact); no tenderness ( lateral malleolus, anterior ankle and medial ankle) and no swelling ( moderate anterior ankle, moderate lateral ankle) and foot Details: normal capillary refill, toes with normal ROM, vascular exam Details: dorsalis pedis pulse present and normal capillary refill, tendon exam active flexion normal and active extension normal and motor-sensory exam two point discrimination normal and light-touch normal; no tenderness Other: Wound VAC dressing intact. Functioning well. Serous drainage in chamber. Lower extremity edema improved. No necrosis, no malodor. Surrounding tissue with no signs of infection. Psych: Affect: normal affect Objective Data Vital Signs Vital Signs: Vital Signs - 24 hr 11/13/20 10:00 11/13/20 14:26 11/13/20 14:32 Temperature Pulse Rate 90 95 Respiratory Rate 16 16 Blood Pressure Pulse Oximetry 92 11/13/20 15:18 11/13/20 15:20 11/13/20 22:00 Temperature 36.3 C L 36.3 C L Pulse Rate 79 81 Respiratory Rate 26 H 18 Blood Pressure 177/64 H 182/81 H Pulse Oximetry 96 91 11/13/20 23:15 11/14/20 01:50 11/14/20 02:00 Temperature Pulse Rate 93 96 Respiratory Rate 16 20 Blood Pressure 184/74 H Pulse Oximetry 94 11/14/20 06:00 11/14/20 08:52 11/14/20 09:00 Temperature 36.9 C Pulse Rate 87 76 75 Respiratory Rate 20 20 20 Blood Pressure 196/80 H Pulse Oximetry 94 96 Intake/Output Intake/Output: Intake & Output 11/11/20 11/12/20 11/13/20 11/14/20 23:59 23:59 23:59 23:59 Intake Total 1660 1950 1410 800 Output Total 2775 5850 1100 3000 Balance -1110 -6784 310 -2200 Meds/Results Medications: Active Medications Generic Name Dose Route Start Last Admin Trade Name Freq PRN Reason Stop Dose Admin Albuterol 2.5 mg 10/29/20 14:45 11/14/20 08:51 Albuterol Sulfate Neb 2.5 Mg/0.5 Ml Inh INHALATION 2.5 mg Q6HRT REJI Administration Aspirin
--- NOTE | 2020-11-14 11:03 | PM.PNNEP ---
Progress Note: A&P Assessment and Plan (1) SARAH (acute kidney injury): Code(s): N17.9 - Acute kidney failure, unspecified Status: Acute Assessment and Plan: suspect due to infection and fluctuating hemodynamics leading to ATN evaluation to date: - urine sodium not low but she was on diuretics - renal ultrasound with obstruction given rising creatinine and fluctuating urine output, initiated on renal replacement therapy/dialysis unclear if recovery will occur given her advanced CKD at baseline good urine output and relatively stable creatinine as well as electrolytes -- possible renal recovery??? HOLD dialysis today follow trend of repeat labs and urine output (2) Chronic kidney disease, stage 4 (severe): Code(s): N18.4 - Chronic kidney disease, stage 4 (severe) Status: Chronic Assessment and Plan: creatinine is up and down during this hospital stay baseline creatinine runs around the 3ish range most likely due to diabetes, hypertension, and vascular disease follows with Dr. Pena for CKD management (3) Hypertension: Qualifiers: Hypertension type: essential hypertension Qualified Code(s): I10 - Essential (primary) hypertension Code(s): I10 - Essential (primary) hypertension Status: Chronic Assessment and Plan: running on the high side at this time follow trend for now consider titration of metoprolol versus adding another agent (i.e. hydralazine or amlodipine) (4) Anemia: Code(s): D64.9 - Anemia, unspecified Status: Chronic Assessment and Plan: due to SARAH, underlying CKD, and acute illness on Epogen follow trend of H/H (5) Delayed surgical wound healing of [id number]-[id number] amputation stump: Code(s): T87.89 - Other complications of amputation stump; T81.89XA - Other complications of procedures, not elsewhere classified, initial encounter Status: Acute Assessment and Plan: Orthopedics following wound vac in place local wound care (6) Type 2 diabetes mellitus: Qualifiers: Diabetes mellitus alf insulin use: without buttermaker helper use Diabetes mellitus complication status: with kidney complications Diabetes mellitus complication detail: with chronic kidney disease Chronic kidney disease stage: stage 4 (severe) Qualified Code(s): E11.22 - Type 2 diabetes mellitus with diabetic chronic kidney disease; N18.4 - Chronic kidney disease, stage 4 (severe) Code(s): E11.9 - Type 2 diabetes mellitus without complications Status: Chronic Assessment and Plan: follow accuchecks on SSI Will continue to follow. Subjective Date/time seen: 11/14/20 11:04 Appears to be doing reasonably well and in good spirits at the time of my visit; continues to make good urine output with oral diuretic therapy; no acute complaints/concerns voiced; no events overnight or earlier this AM; no distress expressed. Exam Narrative: General: WD/WN female in NAD Heart: normal S1 and S2; no rub Lungs: clear to auscultation Abdomen: soft, nontender, nondistended, positive bowel sounds Extremities: no cyanosis or clubbing; minimal edema; s/p right BKA Skin: wound vac in place on the right stump (no change) Objective Data Vital Signs Vital Signs: Vital Signs Temp Pulse Resp BP Pulse Ox 11/14/20 09:00 75 20 11/14/20 08:52 76 20 96 11/14/20 08:00 95 11/14/20 06:00 36.9 C 87 20 196/80 H 94 11/14/20 02:00 96 20 11/14/20 01:50 93 16 11/13/20 23:15 184/74 H 94 11/13/20 22:00 36.3 C L 81 18 182/81 H 91 11/13/20 15:20 36.3 C L 79 177/64 H 96 11/13/20 15:18 26 H 11/13/20 14:32 95 16 11/13/20 14:26 90 16 Intake/Output Intake/Output: Intake & Output 11/11/20 11/12/20 11/13/20 11/14/20 23:59 23:59 23:59 23:59 Intake Total 1660 1950 1410 800 Output Total 2775 5850 1100 3000
--- NOTE | 2020-11-14 11:03 | P.PNNP_ITS ---
Progress Note: A&P Assessment and Plan (1) SARAH (acute kidney injury): Code(s): N17.9 - Acute kidney failure, unspecified Status: Acute Assessment and Plan: * suspect due to infection and fluctuating hemodynamics leading to ATN * evaluation to date: - urine sodium not low but she was on diuretics - renal ultrasound with obstruction * given rising creatinine and fluctuating urine output, initiated on renal replacement therapy/dialysis * unclear if recovery will occur given her advanced CKD at baseline * good urine output and relatively stable creatinine as well as electrolytes -- possible renal recovery??? * HOLD dialysis today * follow trend of repeat labs and urine output (2) Chronic kidney disease, stage 4 (severe): Code(s): N18.4 - Chronic kidney disease, stage 4 (severe) Status: Chronic Assessment and Plan: * creatinine is up and down during this hospital stay * baseline creatinine runs around the 3ish range * most likely due to diabetes, hypertension, and vascular disease * follows with Dr. Pena for CKD management (3) Hypertension: Qualifiers: Hypertension type: essential hypertension Qualified Code(s): I10 - Essential (primary) hypertension Code(s): I10 - Essential (primary) hypertension Status: Chronic Assessment and Plan: * running on the high side at this time * follow trend for now * consider titration of metoprolol versus adding another agent (i.e. hydralazine or amlodipine) (4) Anemia: Code(s): D64.9 - Anemia, unspecified Status: Chronic Assessment and Plan: * due to SARAH, underlying CKD, and acute illness * on Epogen * follow trend of H/H (5) Delayed surgical wound healing of wwrhd-cot-[id number] amputation stump: Code(s): T87.89 - Other complications of amputation stump; T81.89XA - Other complications of procedures, not elsewhere classified, initial encounter Status: Acute Assessment and Plan: * Orthopedics following * wound vac in place * local wound care (6) Type 2 diabetes mellitus: Qualifiers: Diabetes mellitus fci insulin use: without exterminator use Diabetes mellitus complication status: with kidney complications Diabetes mellitus complication detail: with chronic kidney disease Chronic kidney disease stage: stage 4 (severe) Qualified Code(s): E11.22 - Type 2 diabetes mellitus with diabetic chronic kidney disease; N18.4 - Chronic kidney disease, stage 4 (severe) Code(s): E11.9 - Type 2 diabetes mellitus without complications Status: Chronic Assessment and Plan: * follow accuchecks * on SSI Will continue to follow. Subjective Date/time seen: 11/14/20 11:04 Appears to be doing reasonably well and in good spirits at the time of my visit; continues to make good urine output with oral diuretic therapy; no acute complaints/concerns voiced; no events overnight or earlier this AM; no distress expressed. Exam Narrative: General: WD/WN female in NAD Heart: normal S1 and S2; no rub Lungs: clear to auscultation Abdomen: soft, nontender, nondistended, positive bowel sounds Extremities: no cyanosis or clubbing; minimal edema; s/p right BKA Skin: wound vac in place on the right stump (no change) Objective Data Vital Signs Vital Signs: Vital Signs Temp Pulse Resp BP Pulse Ox 11/14/20 09:00 75 20 11/14/20 08:
--- NOTE | 2020-11-14 12:44 | P.PNIM_ITS ---
Progress Note: A&P Assessment and Plan (1) Infection of right below knee amputation: Code(s): T87.43 - Infection of amputation stump, right lower extremity Status: Acute Assessment and Plan: S/p debridement and wound vac placement on 10/20; Ortho and ID following. wound covered vac looks to be improving * continue orthopedic follow-up. Wound VAC dressing change per orthopedics * Abx Completed Unasyn for aspiration pneumonitis /pneumonia. She was on cefepime, Flagyl, vancomycin and p.o. vancomycin earlier which has been stopped after she had received it for 11-12 days while p.o. vancomycin for 14 days. * Infectious disease service is following. 11/12: WBC 7.9 Continue Unasyn 11/14 finished Unasyn course (2) UTI (urinary tract infection): Qualifiers: Hematuria presence: without hematuria Urinary tract infection type: acute cystitis Qualified Code(s): N30.00 - Acute cystitis without hematuria Code(s): N39.0 - Urinary tract infection, site not specified Status: Acute Assessment and Plan: Resolved. She was on cefepime, Flagyl and vancomycin earlier but now currently on Unasyn. she had received all these antibiotic for 11-12 days. She has finished a course of p.o. vancomycin for C diff colitis. (3) Septic shock: Code(s): A41.9 - Sepsis, unspecified organism; R65.21 - Severe sepsis with septic shock Status: Acute Assessment and Plan: Resolved. Off pressors since 10/14. (4) C. difficile colitis: Code(s): A04.72 - Enterocolitis due to Clostridium difficile, not specified as recurrent Status: Acute Assessment and Plan: Completed the course of p.o. vancomycin for 14 days. (5) Acute renal failure superimposed on stage 4 chronic kidney disease: Qualifiers: Acute renal failure type: unspecified Qualified Code(s): N17.9 - Acute kidney failure, unspecified; N18.4 - Chronic kidney disease, stage 4 (severe) Code(s): N17.9 - Acute kidney failure, unspecified; N18.4 - Chronic kidney disease, stage 4 (severe) Status: Acute Assessment and Plan: Cr 4.0 Baseline Cr typically ~3.00 with variability. Nephrology following; appreciate rec. Renal US as noted above. Started on hemodialysis 2020 Intermittently getting dialyzed Nephrology following no dialysis today will recheck her renal function tomorrow remains on [place] catheter which will be continued had urinary retention admission (6) Acute on chronic respiratory failure with hypoxia and hypercapnia: Code(s): J96.21 - Acute and chronic respiratory failure with hypoxia; J96.22 - Acute and chronic respiratory failure with hypercapnia Status: Resolved Assessment and Plan: Resolved; presented with respiratory acidosis and increased lethargy requiring intubation. Patient extubated and was reintubated on likely secondary to an episode of aspiration pneumonitis/pneumonia versus hypercarbia. she was extubated 10/30 current saturating well on nasal cannula incentive spirometry continued Unasyn for 7 days until 11/05/20 finish the course BiPAP at night (7) Normal anion gap metabolic acidosis: Code(s): E87.2 - Acidosis Status: Resolved Assessment and Plan: secondary renal disease p.o. bicarb nephro following (8) Hypertension: Qualifiers: Hypertension type: essential hypertension Qualified Code(s): I10 - Essential (primary) hypertension Code(s): I10 - Essential (primary) hypertension Status: Chronic Assessment and P
[2020-11-14 13:23] LABS: Glucose Point of Care 174 mg/dl (65-105)
[2020-11-14 17:58] LABS: Glucose Point of Care 159 mg/dl (65-105)
[2020-11-14] MEDS: ACETAMINOPHEN 325 MG TABLET 650 MG PO (21:29)
[2020-11-14 21:34] LABS: Glucose Point of Care 182 mg/dl (65-105)
[2020-11-15] VITALS (14 sets, daily range): BP systolic 163–182; BP diastolic 60–68; PULSE 61–83; RESP 18–22; TEMP 36.4–36.9; O2SAT 94–100
[2020-11-15] MEDS: IPRATROPIUM BR 0.02% INH SOLN 0.5 MG/2.5 ML VIAL INHALATION ×4 (02:17→20:31)
[2020-11-15] MEDS: ALBUTEROL SULFATE NEB 2.5 MG/0.5 ML INH INHALATION ×4 (02:18→20:31)
[2020-11-15 06:36] LABS: Basophils Absolute Auto 0.1 K/mm3 (0.0-0.1); Basophils Percent Auto 0.9 % (0.2-1.2); Eosinophils Absolute Auto 0.2 K/mm3 (0-0.3); Eosinophils Percent Auto 2.4 % (0-4.4); Hematocrit 28.6 % (37.0-47.0); Hemoglobin 8.4 g/dL (12.0-15.0); Immature Granulocyte Absolute 0.09 K/mm3 (0.00-0.031); Immature Granulocyte Percent A 1.4 % (0-0.5); Lymphocytes Percent Auto 15.8 % (18.3-44.2); Mean Corpuscular HGB Conc 29.4 g/dl (32-36); Mean Corpuscular Hemoglobin 28.1 pg (26-34); Mean Corpuscular Volume 95.7 fl (80-100); Mean Platelet Volume 10.6 fl (7.4-10.4); Monocytes Absolute Auto 0.6 K/mm3 (0.1-0.6); Neutrophils Absolute Auto 4.5 K/mm3 (1.3-6.7); Neutrophils Percent Auto 70.5 % (45.5-73.1); Platelet Count Result 225 k/mm3 (150-375); Red Blood Count 2.99 M/mm3 (4.2-5.4); Red Cell Distribution Width 17.2 % (11.5-14.5); White Blood Count 6.3 K/mm3 (4.5-10.0)
[2020-11-15 06:58] LABS: Albumin Level 2.4 g/dL (3.5-5.1); Anion Gap 9 mmol/L (8-16); Blood Urea Nitrogen 47 mg/dL (7-17); Calcium 8.1 mg/dL (8.4-10.2); Carbon Dioxide 29 mmol/L (22-30); Chloride 95 mmol/L (98-107); Estimated CRCL calculation 19 ml/min; Estimated Glomerular Filt Rate 14; Glucose 131 mg/dL (65-110); Phosphorus 4.2 mg/dL (2.5-4.5); Potassium 3.2 mmol/L (3.4-5.0); Sodium 133 mmol/L (137-145)
[2020-11-15] MEDS: METOPROLOL TARTRATE 50 MG TAB 100 MG PO ×2 (08:01→21:02)
[2020-11-15] MEDS: DOCUSATE SODIUM 100 MG CAPSULE PO ×2 (08:01→18:28)
[2020-11-15] MEDS: PANTOPRAZOLE SODIUM IV 40 MG VIAL IV PUSH (08:01)
[2020-11-15] MEDS: FUROSEMIDE 80 MG TABLET PO ×2 (08:02→18:29)
[2020-11-15] MEDS: FERROUS SULFATE 324 MG TABLET PO (08:02)
[2020-11-15] MEDS: TOLNAFTATE 1% POWDER 45 GM BTL 1 APPLIC TOPICAL ×2 (08:02→21:02)
[2020-11-15] MEDS: HEPARIN SODIUM 5,000 UNITS/ML VIAL 5000 UNITS SUB-Q (08:02)
[2020-11-15] MEDS: ASPIRIN 81 MG ENTERIC TABLET PO (08:02)
[2020-11-15 08:35] LABS: Glucose Point of Care 134 mg/dl (65-105)
--- NOTE | 2020-11-15 09:55 | PM.PNORT ---
Progress Note: A&P Assessment and Plan (1) Delayed surgical wound healing of pjmhh-huo-[id number] amputation stump: Code(s): T87.89 - Other complications of amputation stump; T81.89XA - Other complications of procedures, not elsewhere classified, initial encounter Status: Acute Assessment and Plan: Wound VAC dressing Change today. Overall wound improving. Swelling improved. No new necrosis noted. Continue nutritional support. Plan for wound VAC dressing change three times weekly. Will continue to follow. No further surgical plan at this time. Will allow wound to heal with secondary intention. Continue to monitor. Subjective Subjective Date/Time Seen: 11/15/20 09:55 Principal diagnosis: Right below-knee amputation Interval history: patient awake and alert. More comfortable about her medical care plan. Scheduled for wound VAC dressing change today. Exam Const: General: cooperative, comfortable, no acute distress and awake Nutritional Appearance: obese HENMT: Head: normal to inspection, normocephalic and atraumatic Eyes: Conjunctivae: conjunctivae normal Sclera: sclerae normal Neck: Neck: supple and nontender GI: Inspection: non-distended GI Palp: Yes Soft to palpation, No Tenderness to palpation present (GI) and No Guarding due to palpation present (GI) : General: Yes deferred Skin: Wounds: wounds noted (see below ) Extrem: Right lower extremity: hip/thigh Details: normal to inspection, knee Details: normal to inspection; no tenderness and lower leg (Below-knee amputation.) Left lower extremity: hip/thigh Details: normal to inspection, knee Details: abnormal ROM ( range of motion deferred secondary to fracture), ankle (no calf tenderness) Details: normal to inspection, abnormal ROM Details: with range as follows ( Minimal range of motion ankle and hindfoot secondary to fusion); no pain with active ROM and no pain with passive ROM and other ( good capillary refill in toes, 2+ DP pulse, light touch sensation intact); no tenderness ( lateral malleolus, anterior ankle and medial ankle) and no swelling ( moderate anterior ankle, moderate lateral ankle) and foot Details: normal capillary refill, toes with normal ROM, vascular exam Details: dorsalis pedis pulse present and normal capillary refill, tendon exam active flexion normal and active extension normal and motor-sensory exam two point discrimination normal and light-touch normal; no tenderness Other: Wound VAC dressing intact. Functioning well. Serous drainage in chamber. Lower extremity edema improved. No necrosis, no malodor. Surrounding tissue with no signs of infection. Wound VAC dressing changed. Wound care nursing notes for exact dimensions but overall improved. 85% granulation with 15% slough. Psych: Affect: normal affect Objective Data Vital Signs Vital Signs: Vital Signs - 24 hr 11/14/20 14:00 11/14/20 14:07 11/14/20 14:15 Temperature 96.9 F L Pulse Rate 81 79 77 Respiratory Rate 22 H 20 20 Blood Pressure 174/74 H Pulse Oximetry 100 11/14/20 20:12 11/14/20 20:20 11/14/20 22:00 Temperature 98.8 F Pulse Rate 82 80 82 Respiratory Rate 20 20 20 Blood Pressure 175/69 H Pulse Oximetry 93 11/14/20 23:26 11/15/20 02:19 11/15/20 02:30 Temperature Pulse Rate 79 82 Respiratory Rate 24 H 20 20 Blood Pressure Pulse Oximetry 11/15/20 06:00 11/15/20 07:58 11/15/20 07:59 Temperature 97.6 F Pulse Rate 79 75 Respiratory Rate 20 20 Blood Pressure 179/68 H Pulse Oximetry 96 95 11/15/20 08:01 11/15/20 08:10 Temperature Pulse Rate 72 78 Respiratory Rate 20 Blood Pressure Pulse Oximetry Intake/Output Intake/Output: Intake & Output 11/12/20 11/13/20 11/14/20 11/15/20 23:59 23:59 23:59 23:59 Intake Total 1950 1410 1020 800 Output Total 5850 1100 4850 Balance -3900 310 -3830 800 Meds/Results Medications: Active Medications Generic Name Dose Route Start Last Admin Tra
[2020-11-15 12:32] LABS: Glucose Point of Care 161 mg/dl (65-105)
--- NOTE | 2020-11-15 16:55 | PM.PNNEP ---
Progress Note: A&P Assessment and Plan (1) SARAH (acute kidney injury): Code(s): N17.9 - Acute kidney failure, unspecified Status: Acute Assessment and Plan: suspect due to infection and fluctuating hemodynamics leading to ATN evaluation to date: - urine sodium not low but she was on diuretics - renal ultrasound with obstruction given rising creatinine and fluctuating urine output, initiated on renal replacement therapy/dialysis unclear if recovery will occur given her advanced CKD at baseline good urine output and relatively stable creatinine as well as electrolytes -- possible renal recovery??? HOLD dialysis today again discontinue diuretics follow trend of repeat labs and urine output (2) Chronic kidney disease, stage 4 (severe): Code(s): N18.4 - Chronic kidney disease, stage 4 (severe) Status: Chronic Assessment and Plan: creatinine is up and down during this hospital stay baseline creatinine runs around the 3ish range most likely due to diabetes, hypertension, and vascular disease follows with Dr. Pena for CKD management (3) Hypertension: Qualifiers: Hypertension type: essential hypertension Qualified Code(s): I10 - Essential (primary) hypertension Code(s): I10 - Essential (primary) hypertension Status: Chronic Assessment and Plan: running on the high side at this time follow trend for now consider titration of metoprolol versus adding another agent (i.e. hydralazine or amlodipine) (4) Anemia: Code(s): D64.9 - Anemia, unspecified Status: Chronic Assessment and Plan: due to SARAH, underlying CKD, and acute illness on Epogen follow trend of H/H (5) Delayed surgical wound healing of tebjo-kia-mgai amputation stump: Code(s): T87.89 - Other complications of amputation stump; T81.89XA - Other complications of procedures, not elsewhere classified, initial encounter Status: Acute Assessment and Plan: Orthopedics following wound vac in place local wound care (6) Type 2 diabetes mellitus: Qualifiers: Diabetes mellitus custodial insulin use: without long term care administrator use Diabetes mellitus complication status: with kidney complications Diabetes mellitus complication detail: with chronic kidney disease Chronic kidney disease stage: stage 4 (severe) Qualified Code(s): E11.22 - Type 2 diabetes mellitus with diabetic chronic kidney disease; N18.4 - Chronic kidney disease, stage 4 (severe) Code(s): E11.9 - Type 2 diabetes mellitus without complications Status: Chronic Assessment and Plan: follow accuchecks on SSI Will continue to follow. Subjective Date/time seen: 11/15/20 16:55 Remains in good spirits; significant urine output in the last 24 - 48 hours as noted by I/Os; continues to be in good spirits at the time of my visit; no acute issues or concerns reported at this time; no events overnight or earlier this AM; feels pretty good - eating and drinking okay as well. Exam Narrative: General: WD/WN female in NAD Heart: normal S1 and S2; no rub Lungs: clear to auscultation Abdomen: soft, nontender, nondistended, positive bowel sounds Extremities: no cyanosis or clubbing; mild edema; s/p right BKA Skin: wound vac in place on the right stump (no change) Objective Data Vital Signs Vital Signs: Vital Signs Temp Pulse Resp BP Pulse Ox 11/15/20 14:28 77 18 11/15/20 14:10 79 18 11/15/20 14:00 36.8 C 75 20 163/60 H 100 11/15/20 08:10 78 20 11/15/20 08:01 72 11/15/20 07:59 75 20 11/15/20 07:58 95 11/15/20 06:00 36.4 C 79 20 179/68 H 96 11/15/20 02:30 82 20 11/15/20 02:19 79 20 11/14/20 23:26 24 H 11/14/20 22:00 37.1 C 82 20 175/69 H 93 11/14/20 20:20 80 20 11/14/20 20:12 82 20 Intake/Output Intake/Output: Intake & Output 11/12
--- NOTE | 2020-11-15 16:55 | P.PNNP_ITS ---
Progress Note: A&P Assessment and Plan (1) SARAH (acute kidney injury): Code(s): N17.9 - Acute kidney failure, unspecified Status: Acute Assessment and Plan: * suspect due to infection and fluctuating hemodynamics leading to ATN * evaluation to date: - urine sodium not low but she was on diuretics - renal ultrasound with obstruction * given rising creatinine and fluctuating urine output, initiated on renal replacement therapy/dialysis * unclear if recovery will occur given her advanced CKD at baseline * good urine output and relatively stable creatinine as well as electrolytes -- possible renal recovery??? * HOLD dialysis today again * discontinue diuretics * follow trend of repeat labs and urine output (2) Chronic kidney disease, stage 4 (severe): Code(s): N18.4 - Chronic kidney disease, stage 4 (severe) Status: Chronic Assessment and Plan: * creatinine is up and down during this hospital stay * baseline creatinine runs around the 3ish range * most likely due to diabetes, hypertension, and vascular disease * follows with Dr. Pena for CKD management (3) Hypertension: Qualifiers: Hypertension type: essential hypertension Qualified Code(s): I10 - Essential (primary) hypertension Code(s): I10 - Essential (primary) hypertension Status: Chronic Assessment and Plan: * running on the high side at this time * follow trend for now * consider titration of metoprolol versus adding another agent (i.e. hydralazine or amlodipine) (4) Anemia: Code(s): D64.9 - Anemia, unspecified Status: Chronic Assessment and Plan: * due to SARAH, underlying CKD, and acute illness * on Epogen * follow trend of H/H (5) Delayed surgical wound healing of lvono-sto-guhx amputation stump: Code(s): T87.89 - Other complications of amputation stump; T81.89XA - Other complications of procedures, not elsewhere classified, initial encounter Status: Acute Assessment and Plan: * Orthopedics following * wound vac in place * local wound care (6) Type 2 diabetes mellitus: Qualifiers: Diabetes mellitus parts counterman insulin use: without parts counterman use Diabetes mellitus complication status: with kidney complications Diabetes mellitus complication detail: with chronic kidney disease Chronic kidney disease stage: stage 4 (severe) Qualified Code(s): E11.22 - Type 2 diabetes mellitus with diabetic chronic kidney disease; N18.4 - Chronic kidney disease, stage 4 (severe) Code(s): E11.9 - Type 2 diabetes mellitus without complications Status: Chronic Assessment and Plan: * follow accuchecks * on SSI Will continue to follow. Subjective Date/time seen: 11/15/20 16:55 Remains in good spirits; significant urine output in the last 24 - 48 hours as noted by I/Os; continues to be in good spirits at the time of my visit; no acute issues or concerns reported at this time; no events overnight or earlier this AM; feels pretty good - eating and drinking okay as well. Exam Narrative: General: WD/WN female in NAD Heart: normal S1 and S2; no rub Lungs: clear to auscultation Abdomen: soft, nontender, nondistended, positive bowel sounds Extremities: no cyanosis or clubbing; mild edema; s/p right BKA Skin: wound vac in place on the right stump (no change) Objective Data Vital Signs Vital Signs: Vital Signs Temp Pul
--- NOTE | 2020-11-15 17:49 | PM.IMPN ---
Progress Note: A&P Assessment and Plan (1) Infection of right below knee amputation: Code(s): T87.43 - Infection of amputation stump, right lower extremity Status: Acute Assessment and Plan: S/p debridement and wound vac placement on 10/20; Ortho and ID following. wound covered vac looks to be improving continue orthopedic follow-up. Wound VAC dressing change per orthopedics Abx Completed Unasyn for aspiration pneumonitis /pneumonia. She was on cefepime, Flagyl, vancomycin and p.o. vancomycin earlier which has been stopped after she had received it for 11-12 days while p.o. vancomycin for 14 days. Infectious disease service is following. 11/12: WBC 7.9 Continue Unasyn 11/14 finished Unasyn course (2) UTI (urinary tract infection): Qualifiers: Hematuria presence: without hematuria Urinary tract infection type: acute cystitis Qualified Code(s): N30.00 - Acute cystitis without hematuria Code(s): N39.0 - Urinary tract infection, site not specified Status: Acute Assessment and Plan: Resolved. She was on cefepime, Flagyl and vancomycin earlier but now currently on Unasyn. she had received all these antibiotic for 11-12 days. She has finished a course of p.o. vancomycin for C diff colitis. (3) Septic shock: Code(s): A41.9 - Sepsis, unspecified organism; R65.21 - Severe sepsis with septic shock Status: Acute Assessment and Plan: Resolved. Off pressors since 10/14. (4) C. difficile colitis: Code(s): A04.72 - Enterocolitis due to Clostridium difficile, not specified as recurrent Status: Acute Assessment and Plan: Completed the course of p.o. vancomycin for 14 days. (5) Acute renal failure superimposed on stage 4 chronic kidney disease: Qualifiers: Acute renal failure type: unspecified Qualified Code(s): N17.9 - Acute kidney failure, unspecified; N18.4 - Chronic kidney disease, stage 4 (severe) Code(s): N17.9 - Acute kidney failure, unspecified; N18.4 - Chronic kidney disease, stage 4 (severe) Status: Acute Assessment and Plan: Cr 4.0 Baseline Cr typically ~3.00 with variability. Nephrology following; appreciate rec. Renal US as noted above. Started on hemodialysis 2020 Intermittently getting dialyzed Nephrology following no dialysis today will recheck her renal function tomorrow remains on [place] catheter which will be continued had urinary retention admission (6) Acute on chronic respiratory failure with hypoxia and hypercapnia: Code(s): J96.21 - Acute and chronic respiratory failure with hypoxia; J96.22 - Acute and chronic respiratory failure with hypercapnia Status: Resolved Assessment and Plan: Resolved; presented with respiratory acidosis and increased lethargy requiring intubation. Patient extubated and was reintubated on likely secondary to an episode of aspiration pneumonitis/pneumonia versus hypercarbia. she was extubated 10/30 current saturating well on nasal cannula incentive spirometry continued Unasyn for 7 days until 11/05/20 finish the course BiPAP at night (7) Normal anion gap metabolic acidosis: Code(s): E87.2 - Acidosis Status: Resolved Assessment and Plan: secondary renal disease p.o. bicarb nephro following (8) Hypertension: Qualifiers: Hypertension type: essential hypertension Qualified Code(s): I10 - Essential (primary) hypertension Code(s): I10 - Essential (primary) hypertension Status: Chronic Assessment and Plan: blood pressure elevated. patient is currently on amlodipine, clonidine, hydralazine and metoprolol. increase clonidine to t.i.d. and resume Cardura still elevated -> dc amlodipine add nifedipine continue Hydralazine on as needed basis a blood pressure is elevated. (9) Type 2 diabetes mellitus: Qualifiers: Diabetes mellitus residential insulin
[2020-11-15 18:10] LABS: Glucose Point of Care 197 mg/dl (65-105)
[2020-11-15 21:05] LABS: Glucose Point of Care 217 mg/dl (65-105)
[2020-11-15] MEDS: hydrALAZINE HCL 20 MG/ML VIAL 10 MG IV PUSH (23:24)
[2020-11-16] VITALS (16 sets, daily range): BP systolic 147–169; BP diastolic 66–80; PULSE 68–84; RESP 18–23; TEMP 36.6–37.3; O2SAT 96–100
[2020-11-16] MEDS: ALBUTEROL SULFATE NEB 2.5 MG/0.5 ML INH INHALATION ×4 (01:51→21:21)
[2020-11-16] MEDS: IPRATROPIUM BR 0.02% INH SOLN 0.5 MG/2.5 ML VIAL INHALATION ×4 (01:51→21:21)
[2020-11-16 08:29] LABS: Glucose Point of Care 162 mg/dl (65-105)
[2020-11-16] MEDS: METOPROLOL TARTRATE 50 MG TAB 100 MG PO ×2 (08:41→21:14)
[2020-11-16] MEDS: FERROUS SULFATE 324 MG TABLET PO (08:42)
[2020-11-16] MEDS: ASPIRIN 81 MG ENTERIC TABLET PO (08:42)
[2020-11-16] MEDS: DOCUSATE SODIUM 100 MG CAPSULE PO ×2 (08:42→17:56)
--- NOTE | 2020-11-16 09:31 | PM.PNORT ---
Progress Note: A&P Assessment and Plan (1) Delayed surgical wound healing of nmymq-bzn-llex amputation stump: Code(s): T87.89 - Other complications of amputation stump; T81.89XA - Other complications of procedures, not elsewhere classified, initial encounter Status: Acute Assessment and Plan: Wound VAC dressing intact, functioning well. Overall wound improving. Swelling improved. No new necrosis noted. Continue nutritional support. Plan for wound VAC dressing change three times weekly. No further surgical plan at this time. Will allow wound to heal with secondary intention. Will continue to monitor. Subjective Subjective Date/Time Seen: 11/16/20 09:31 Principal diagnosis: Right BKA complicated by post op wound dehiscence Interval history: Patient awake and alert. Concerned about discharge plan. No new concerns regarding wound VAC and right BKA today. Review of Systems Review of Systems: All systems reviewed & are unremarkable except as noted in HPI and below Exam Const: General: cooperative, comfortable, no acute distress and awake Nutritional Appearance: obese HENMT: Head: normal to inspection, normocephalic and atraumatic Eyes: Conjunctivae: conjunctivae normal Sclera: sclerae normal Neck: Neck: supple and nontender Resp: Effort & Inspection: normal respiratory effort Auscultation: clear to auscultation bilaterally GI: Inspection: non-distended GI Palp: Yes Soft to palpation, No Tenderness to palpation present (GI) and No Guarding due to palpation present (GI) : General: Yes deferred Skin: Wounds: wounds noted (see below ) Extrem: Right lower extremity: hip/thigh Details: normal to inspection, knee Details: normal to inspection; no tenderness and lower leg (Below-knee amputation.) Left lower extremity: hip/thigh Details: normal to inspection, knee, ankle (no calf tenderness) Details: normal to inspection, abnormal ROM Details: with range as follows ( Minimal range of motion ankle and hindfoot secondary to fusion); no pain with active ROM and no pain with passive ROM and other ( good capillary refill in toes, 2+ DP pulse, light touch sensation intact); no tenderness ( lateral malleolus, anterior ankle and medial ankle) and no swelling ( moderate anterior ankle, moderate lateral ankle) and foot Details: normal capillary refill, toes with normal ROM, vascular exam Details: dorsalis pedis pulse present and normal capillary refill, tendon exam active flexion normal and active extension normal and motor-sensory exam two point discrimination normal and light-touch normal; no tenderness Other: Wound VAC dressing intact. Functioning well. Serous drainage in chamber. Lower extremity edema improved. No necrosis, no malodor. Surrounding tissue with no signs of infection. Psych: Affect: normal affect Objective Data Vital Signs Vital Signs: Vital Signs - 24 hr 11/15/20 14:00 11/15/20 14:10 11/15/20 14:28 Temperature 36.8 C Pulse Rate 75 79 77 Respiratory Rate 20 18 18 Blood Pressure 163/60 H Pulse Oximetry 100 11/15/20 20:30 11/15/20 20:47 11/15/20 22:00 Temperature 36.9 C Pulse Rate 73 83 77 Respiratory Rate 18 18 20 Blood Pressure 182/67 H Pulse Oximetry 95 95 94 11/15/20 23:00 11/16/20 01:50 11/16/20 02:01 Temperature Pulse Rate 61 76 69 Respiratory Rate 22 H 18 18 Blood Pressure Pulse Oximetry 99 11/16/20 06:00 11/16/20 08:41 11/16/20 09:28 Temperature 37.3 C Pulse Rate 78 80 76 Respiratory Rate 20 20 Blood Pressure 169/80 H Pulse Oximetry 100 11/16/20 09:31 Temperature Pulse Rate Respiratory Rate Blood Pressure Pulse Oximetry 96 Intake/Output Intake/Output: Intake & Output 11/13/20 11/14/20 11/15/20 11/16/20 23:59 23:59 23:59 23:59 Intake Total 1410 1020 2620 540 Output Total 1100 4850 1250 1050 Balance 310 -3830 1370 -510 Meds/Results Medications: Active Medications Generic Name Dose Route Start Last Admin Trad
--- NOTE | 2020-11-16 10:53 | PM.IMPN ---
Progress Note: A&P Assessment and Plan (1) Infection of right below knee amputation: Code(s): T87.43 - Infection of amputation stump, right lower extremity Status: Acute Assessment and Plan: S/p debridement and wound vac placement on 10/20; Ortho and ID following. wound covered vac looks to be improving continue orthopedic follow-up. Wound VAC dressing change per orthopedics Abx Completed Unasyn for aspiration pneumonitis /pneumonia. She was on cefepime, Flagyl, vancomycin and p.o. vancomycin earlier which has been stopped after she had received it for 11-12 days while p.o. vancomycin for 14 days. Infectious disease service is following. 11/12: WBC 7.9 Continue Unasyn 11/14 finished Unasyn course (2) UTI (urinary tract infection): Qualifiers: Hematuria presence: without hematuria Urinary tract infection type: acute cystitis Qualified Code(s): N30.00 - Acute cystitis without hematuria Code(s): N39.0 - Urinary tract infection, site not specified Status: Acute Assessment and Plan: Resolved. She was on cefepime, Flagyl and vancomycin earlier but now currently on Unasyn. she had received all these antibiotic for 11-12 days. She has finished a course of p.o. vancomycin for C diff colitis. (3) Septic shock: Code(s): A41.9 - Sepsis, unspecified organism; R65.21 - Severe sepsis with septic shock Status: Acute Assessment and Plan: Resolved. Off pressors since 10/14. (4) C. difficile colitis: Code(s): A04.72 - Enterocolitis due to Clostridium difficile, not specified as recurrent Status: Acute Assessment and Plan: Completed the course of p.o. vancomycin for 14 days. (5) Acute renal failure superimposed on stage 4 chronic kidney disease: Qualifiers: Acute renal failure type: unspecified Qualified Code(s): N17.9 - Acute kidney failure, unspecified; N18.4 - Chronic kidney disease, stage 4 (severe) Code(s): N17.9 - Acute kidney failure, unspecified; N18.4 - Chronic kidney disease, stage 4 (severe) Status: Acute Assessment and Plan: Cr 4.0 Baseline Cr typically ~3.00 with variability. Nephrology following; appreciate rec. Renal US as noted above. Started on hemodialysis 2020 Intermittently getting dialyzed Nephrology following no dialysis today will recheck her renal function tomorrow remains on [place] catheter which will be continued had urinary retention admission 11/16/20 patient has been on hemodialysis during this admission. She is currently on a holiday to see if her renal function improves. Patient may be discharged in a day or 2 without ongoing outpatient dialysis. We are pending Nephrology's final recommendation. (6) Acute on chronic respiratory failure with hypoxia and hypercapnia: Code(s): J96.21 - Acute and chronic respiratory failure with hypoxia; J96.22 - Acute and chronic respiratory failure with hypercapnia Status: Resolved Assessment and Plan: Resolved; presented with respiratory acidosis and increased lethargy requiring intubation. Patient extubated and was reintubated on likely secondary to an episode of aspiration pneumonitis/pneumonia versus hypercarbia. she was extubated 10/30 current saturating well on nasal cannula incentive spirometry continued Unasyn for 7 days until 11/05/20 finish the course BiPAP at night (7) Normal anion gap metabolic acidosis: Code(s): E87.2 - Acidosis Status: Resolved Assessment and Plan: secondary renal disease p.o. bicarb nephro following (8) Hypertension: Qualifiers: Hypertension type: essential hypertension Qualified Code(s): I10 - Essential (primary) hypertension Code(s): I10 - Essential (primary) hypertension Status: Chronic Assessment and Plan: 11/16/20 blood pressure elevated. patient is currently on metoprolol. add hydralazine PO TID 50m
[2020-11-16 13:09] LABS: Albumin Level 2.5 g/dL (3.5-5.1); Anion Gap 9 mmol/L (8-16); Blood Urea Nitrogen 53 mg/dL (7-17); Calcium 8.2 mg/dL (8.4-10.2); Carbon Dioxide 30 mmol/L (22-30); Chloride 96 mmol/L (98-107); Estimated CRCL calculation 20 ml/min; Estimated Glomerular Filt Rate 15; Glucose 147 mg/dL (65-110); Phosphorus 4.1 mg/dL (2.5-4.5); Potassium 3.2 mmol/L (3.4-5.0); Sodium 135 mmol/L (137-145)
[2020-11-16] MEDS: TOLNAFTATE 1% POWDER 45 GM BTL 1 APPLIC TOPICAL ×2 (13:10→21:15)
[2020-11-16 13:49] LABS: Glucose Point of Care 145 mg/dl (65-105)
--- NOTE | 2020-11-16 14:50 | P.PNNP_ITS ---
Progress Note: A&P Assessment and Plan (1) SARAH (acute kidney injury): Code(s): N17.9 - Acute kidney failure, unspecified Status: Acute Assessment and Plan: * suspect due to infection and fluctuating hemodynamics leading to ATN * evaluation to date: - urine sodium not low but she was on diuretics - renal ultrasound with obstruction * given rising creatinine and fluctuating urine output, initiated on renal replacement therapy/dialysis * continues to have good urine output and relatively stable creatinine as well as electrolytes -- suspect renal recovery... * continue to HOLD dialysis * follow trend of repeat labs and urine output (2) Chronic kidney disease, stage 4 (severe): Code(s): N18.4 - Chronic kidney disease, stage 4 (severe) Status: Chronic Assessment and Plan: * creatinine is up and down during this hospital stay * baseline creatinine runs around the 3ish range * most likely due to diabetes, hypertension, and vascular disease * follows with Dr. Pena for CKD management (3) Hypertension: Qualifiers: Hypertension type: essential hypertension Qualified Code(s): I10 - Essential (primary) hypertension Code(s): I10 - Essential (primary) hypertension Status: Chronic Assessment and Plan: * running on the high side at this time * follow trend for now * consider titration of metoprolol versus adding another agent (i.e. hydralazine or amlodipine) (4) Anemia: Code(s): D64.9 - Anemia, unspecified Status: Chronic Assessment and Plan: * due to SARAH, underlying CKD, and acute illness * was on Epogen with dialysis * follow trend of H/H (5) Delayed surgical wound healing of [id number] amputation stump: Code(s): T87.89 - Other complications of amputation stump; T81.89XA - Other complications of procedures, not elsewhere classified, initial encounter Status: Acute Assessment and Plan: * Orthopedics following * wound vac in place * local wound care (6) Type 2 diabetes mellitus: Qualifiers: Diabetes mellitus nursing home insulin use: without nursing home use Diabetes mellitus complication status: with kidney complications Diabetes mellitus complication detail: with chronic kidney disease Chronic kidney disease stage: stage 4 (severe) Qualified Code(s): E11.22 - Type 2 diabetes mellitus with diabetic chronic kidney disease; N18.4 - Chronic kidney disease, stage 4 (severe) Code(s): E11.9 - Type 2 diabetes mellitus without complications Status: Chronic Assessment and Plan: * follow accuchecks * on SSI Will continue to follow. Subjective Date/time seen: 11/16/20 14:50 Renal function has been stable for the last several days without dialytic intervention; continues to make good urine output without the need for diuretic therapy; no other issues/events to report overnight or earlier this AM; no appa rent distress voiced at the time of my visit. Exam Narrative: General: WD/WN female in NAD Heart: normal S1 and S2; no rub Lungs: clear to auscultation Abdomen: soft, nontender, nondistended, positive bowel sounds Extremities: no cyanosis or clubbing; no edema; s/p right BKA Skin: wound vac in place on the right stump (no change) Objective Data Vital Signs Vital Signs: Vital Signs Temp Pulse Resp BP Pulse Ox 11/16/20 14:01 76 18 11/16/20 14:00
--- NOTE | 2020-11-16 14:50 | PM.PNNEP ---
Progress Note: A&P Assessment and Plan (1) SARAH (acute kidney injury): Code(s): N17.9 - Acute kidney failure, unspecified Status: Acute Assessment and Plan: suspect due to infection and fluctuating hemodynamics leading to ATN evaluation to date: - urine sodium not low but she was on diuretics - renal ultrasound with obstruction given rising creatinine and fluctuating urine output, initiated on renal replacement therapy/dialysis continues to have good urine output and relatively stable creatinine as well as electrolytes -- suspect renal recovery... continue to HOLD dialysis follow trend of repeat labs and urine output (2) Chronic kidney disease, stage 4 (severe): Code(s): N18.4 - Chronic kidney disease, stage 4 (severe) Status: Chronic Assessment and Plan: creatinine is up and down during this hospital stay baseline creatinine runs around the 3ish range most likely due to diabetes, hypertension, and vascular disease follows with Dr. Pena for CKD management (3) Hypertension: Qualifiers: Hypertension type: essential hypertension Qualified Code(s): I10 - Essential (primary) hypertension Code(s): I10 - Essential (primary) hypertension Status: Chronic Assessment and Plan: running on the high side at this time follow trend for now consider titration of metoprolol versus adding another agent (i.e. 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 Subjective Date/time seen: 11/16/20 14:50 Renal function has been stable for the last several days without dialytic intervention; continues to make good urine output without the need for diuretic therapy; no other issues/events to report overnight or earlier this AM; no apparent distress voiced at the time of my visit. Exam Narrative: General: WD/WN female in NAD Heart: normal S1 and S2; no rub Lungs: clear to auscultation Abdomen: soft, nontender, nondistended, positive bowel sounds Extremities: no cyanosis or clubbing; no edema; s/p right BKA Skin: wound vac in place on the right stump (no change) Objective Data Vital Signs Vital Signs: Vital Signs Temp Pulse Resp BP Pulse Ox 11/16/20 14:01 76 18 11/16/20 14:00 36.8 C 74 20 163/66 H 100 11/16/20 13:51 80 18 11/16/20 09:37 84 20 11/16/20 09:31 96 11/16/20 09:28 76 20 11/16/20 08:41 80 11/16/20 06:00 37.3 C 78 20 169/80 H 100 11/16/20 02:01 69 18 11/16/20 01:50 76 18 11/15/20 23:00 61 22 H 99 11/15/20 22:00 36.9 C 77 20 182/67 H 94 11/15/20 20:47 83 18 95 11/15/20 20:30 73 18 95 Intake/Output Intake/Output: Intake & Output 11/13/20 11/14/20 11/15/20 11/16/20 23:59 23:59 23:59 23:59 Intake
[2020-11-16] MEDS: hydrALAZINE HCL 50 MG TABLET PO (17:56)
[2020-11-16 17:57] LABS: Glucose Point of Care 163 mg/dl (65-105)
[2020-11-16 18:36] LABS: Free T4 Free Thyroxine Reflex 1.12 ng/dL (0.78-2.19)
[2020-11-16 19:23] LABS: Total Triiodothyronine (T3) 0.81 NG/ML (0.97-1.69)
[2020-11-17] VITALS (7 sets, daily range): BP systolic 147–173; BP diastolic 63–83; PULSE 64–88; RESP 14–20; TEMP 36.7–37.1; O2SAT 93–100
[2020-11-17 00:57] LABS: Glucose Point of Care 240 mg/dl (65-105)
[2020-11-17] MEDS: IPRATROPIUM BR 0.02% INH SOLN 0.5 MG/2.5 ML VIAL INHALATION ×3 (03:12→14:06)
[2020-11-17] MEDS: ALBUTEROL SULFATE NEB 2.5 MG/0.5 ML INH INHALATION ×3 (03:12→14:06)
[2020-11-17] MEDS: LEVOTHYROXINE SODIUM 25 MCG TABLET PO (05:42)
[2020-11-17 08:05] LABS: Glucose Point of Care 153 mg/dl (65-105)
[2020-11-17 09:03] LABS: Basophils Percent Auto 0.5 % (0.2-1.2); Eosinophils Absolute Auto 0.2 K/mm3 (0-0.3); Eosinophils Percent Auto 2.4 % (0-4.4); Hematocrit 29.9 % (37.0-47.0); Hemoglobin 8.6 g/dL (12.0-15.0); Immature Granulocyte Absolute 0.05 K/mm3 (0.00-0.031); Immature Granulocyte Percent A 0.8 % (0-0.5); Lymphocytes Absolute Auto 0.88 K/mm3 (0.9-3.2); Lymphocytes Percent Auto 13.3 % (18.3-44.2); Mean Corpuscular HGB Conc 28.8 g/dl (32-36); Mean Corpuscular Volume 97.4 fl (80-100); Mean Platelet Volume 10.2 fl (7.4-10.4); Monocytes Absolute Auto 0.4 K/mm3 (0.1-0.6); Monocytes Percent Auto 5.3 % (2.6-8.5); Neutrophils Absolute Auto 5.2 K/mm3 (1.3-6.7); Neutrophils Percent Auto 77.7 % (45.5-73.1); Platelet Count Result 272 k/mm3 (150-375); Red Blood Count 3.07 M/mm3 (4.2-5.4); Red Cell Distribution Width 16.8 % (11.5-14.5); White Blood Count 6.6 K/mm3 (4.5-10.0)
[2020-11-17] MEDS: DOCUSATE SODIUM 100 MG CAPSULE PO (09:27)
[2020-11-17] MEDS: hydrALAZINE HCL 50 MG TABLET PO ×2 (09:27→14:43)
[2020-11-17] MEDS: METOPROLOL TARTRATE 50 MG TAB 100 MG PO (09:27)
[2020-11-17] MEDS: FERROUS SULFATE 324 MG TABLET PO (09:27)
[2020-11-17] MEDS: ASPIRIN 81 MG ENTERIC TABLET PO (09:27)
[2020-11-17] MEDS: PANTOPRAZOLE 40 MG TABLET PO (09:27)
[2020-11-17] MEDS: TOLNAFTATE 1% POWDER 45 GM BTL 1 APPLIC TOPICAL (09:29)
[2020-11-17 09:59] LABS: Albumin Level 2.5 g/dL (3.5-5.1); Anion Gap 7 mmol/L (8-16); Blood Urea Nitrogen 54 mg/dL (7-17); Calcium 7.9 mg/dL (8.4-10.2); Carbon Dioxide 31 mmol/L (22-30); Chloride 98 mmol/L (98-107); Estimated CRCL calculation 19 ml/min; Estimated Glomerular Filt Rate 15; Glucose 135 mg/dL (65-110); Phosphorus 4.4 mg/dL (2.5-4.5); Potassium 3.1 mmol/L (3.4-5.0); Sodium 136 mmol/L (137-145)
--- NOTE | 2020-11-17 10:35 | PM.PNORT ---
Progress Note: A&P Assessment and Plan (1) Delayed surgical wound healing of [id number]-[id number]-[id number] amputation stump: Code(s): T87.89 - Other complications of amputation stump; T81.89XA - Other complications of procedures, not elsewhere classified, initial encounter Status: Acute Assessment and Plan: Wound VAC dressing change today, functioning well. Overall wound improving. Swelling improved. No new necrosis noted. Continue nutritional support. Plan for wound VAC dressing change three times weekly. No further surgical plan at this time. Will allow wound to heal with secondary intention. Will continue to monitor. Okay from Orthopedics for discharge. Follow up in the [facility] 2 to 4 weeks. Subjective Subjective Date/Time Seen: 11/17/20 10:35 Principal diagnosis: Right below-knee amputation Interval history: patient awake and alert. No new complaints. Tolerating regular diet. Exam Const: General: cooperative, comfortable, no acute distress and awake Nutritional Appearance: obese HENMT: Head: normal to inspection, normocephalic and atraumatic Eyes: Conjunctivae: conjunctivae normal Sclera: sclerae normal Neck: Neck: supple and nontender Resp: Effort & Inspection: normal respiratory effort Auscultation: clear to auscultation bilaterally GI: Inspection: non-distended GI Palp: Yes Soft to palpation, No Tenderness to palpation present (GI) and No Guarding due to palpation present (GI) : General: Yes deferred Skin: Wounds: wounds noted (see below ) Extrem: Right lower extremity: hip/thigh Details: normal to inspection, knee Details: normal to inspection; no tenderness and lower leg (Below-knee amputation.) Left lower extremity: hip/thigh Details: normal to inspection, knee, ankle (no calf tenderness) Details: normal to inspection, abnormal ROM Details: with range as follows ( Minimal range of motion ankle and hindfoot secondary to fusion); no pain with active ROM and no pain with passive ROM and other ( good capillary refill in toes, 2+ DP pulse, light touch sensation intact); no tenderness ( lateral malleolus, anterior ankle and medial ankle) and no swelling ( moderate anterior ankle, moderate lateral ankle) and foot Details: normal capillary refill, toes with normal ROM, vascular exam Details: dorsalis pedis pulse present and normal capillary refill, tendon exam active flexion normal and active extension normal and motor-sensory exam two point discrimination normal and light-touch normal; no tenderness Other: Wound VAC dressing change. Functioning well. Serous drainage in chamber. Lower extremity edema improved. No necrosis, no malodor. Surrounding tissue with no signs of infection. Psych: Affect: normal affect Objective Data Vital Signs Vital Signs: Vital Signs - 24 hr 11/16/20 13:51 11/16/20 14:00 11/16/20 14:01 Temperature 98.2 F Pulse Rate 80 74 76 Respiratory Rate 18 20 18 Blood Pressure 163/66 H Pulse Oximetry 100 11/16/20 21:14 11/16/20 21:22 11/16/20 21:27 Temperature Pulse Rate 74 78 78 Respiratory Rate 18 Blood Pressure Pulse Oximetry 96 11/16/20 21:37 11/16/20 21:38 11/16/20 22:00 Temperature 97.8 F Pulse Rate 76 76 68 Respiratory Rate 23 H 23 H 18 Blood Pressure 147/74 H Pulse Oximetry 97 100 11/17/20 03:13 11/17/20 03:23 11/17/20 06:00 Temperature 98.8 F Pulse Rate 64 66 65 Respiratory Rate 20 18 18 Blood Pressure 173/83 H Pulse Oximetry 100 11/17/20 08:41 11/17/20 08:43 11/17/20 09:27 Temperature Pulse Rate 80 80 88 Respiratory Rate 20 Blood Pressure Pulse Oximetry 93 Intake/Output Intake/Output: Intake & Output 11/14/20 11/15/20 11/16/20 11/17/20 23:59 23:59 23:59 23:59 Intake Total 1020 2620 1030 440 Output Total 4850 1250 2400 1150 Balance -3830 1370 -1370 -710 Meds/Results Medications: Active Medications Generic Name Dose Route Start Last Admin Trade Name Freq PRN Reason Stop Dose Admi
[2020-11-17] MEDS: NIFEdipine 30 MG TAB.ER.24 PO (11:13)
[2020-11-17 11:23] LABS: Glucose Point of Care 189 mg/dl (65-105)
[2020-11-17 12:04] LABS: EDCOVIDSCREEN Negative (Negative)
[2020-11-17 12:07] LABS: Hypochromasia 1+ (NORMAL); Platelet Estimate Adequate (Adequate)
--- NOTE | 2020-11-17 12:16 | P.PNNP_ITS ---
Progress Note: A&P Assessment and Plan (1) SARAH (acute kidney injury): Code(s): N17.9 - Acute kidney failure, unspecified Status: Acute Assessment and Plan: * suspect due to infection and fluctuating hemodynamics leading to ATN * evaluation to date: - urine sodium not low but she was on diuretics - renal ultrasound with obstruction * given rising creatinine and fluctuating urine output, initiated on renal replacement therapy/dialysis * continues to have good urine output and relatively stable creatinine as well as electrolytes -- suspect renal recovery... * continue to HOLD dialysis * replete K+ as needed * follow trend of repeat labs and urine output (2) Chronic kidney disease, stage 4 (severe): Code(s): N18.4 - Chronic kidney disease, stage 4 (severe) Status: Chronic Assessment and Plan: * creatinine is up and down during this hospital stay * baseline creatinine runs around the 3ish range * most likely due to diabetes, hypertension, and vascular disease * follows with Dr. Pena for CKD management (3) Hypertension: Qualifiers: Hypertension type: essential hypertension Qualified Code(s): I10 - Essential (primary) hypertension Code(s): I10 - Essential (primary) hypertension Status: Chronic Assessment and Plan: * running on the high side at this time * follow trend for now * consider titration of metoprolol versus adding another agent (i.e. hydralazine or amlodipine) (4) Anemia: Code(s): D64.9 - Anemia, unspecified Status: Chronic Assessment and Plan: * due to SARAH, underlying CKD, and acute illness * was on Epogen with dialysis * follow trend of H/H (5) Delayed surgical wound healing of [id number] amputation stump: Code(s): T87.89 - Other complications of amputation stump; T81.89XA - Other complications of procedures, not elsewhere classified, initial encounter Status: Acute Assessment and Plan: * Orthopedics following * wound vac in place * local wound care (6) Type 2 diabetes mellitus: Qualifiers: Chronic kidney disease stage: stage 4 (severe) Diabetes mellitus complication detail: with chronic kidney disease Diabetes mellitus complication status: with kidney complications Diabetes mellitus long-term insulin use: without exterminator use Qualified Code(s): E11.22 - Type 2 diabetes mellitus with diabetic chronic kidney disease; N18.4 - Chronic kidney disease, stage 4 (severe) Code(s): E11.9 - Type 2 diabetes mellitus without complications Status: Chronic Assessment and Plan: * follow accuchecks * on SSI No opposed to discharge from renal perspective if otherwise medically stable. Will continue to follow. Subjective Date/time seen: 11/17/20 12:16 No new issues or problems to report at this time; continues to feel reasonably well; stable urine output in the last several days without the need for diuretic therapy; eating and drinking reasonably well; no other compaints voiced; no distress noted. Exam Narrative: General: WD/WN female in NAD Heart: normal S1 and S2; no rub Lungs: clear to auscultation Abdomen: soft, nontender, nondistended, positive bowel sounds Extremities: no cyanosis or clubbing; no edema; s/p right BKA Skin: wound vac in place on the right stump (no change) Objective Data Vital Signs Vital Signs: Vital Signs Temp Pu
--- NOTE | 2020-11-17 12:16 | PM.PNNEP ---
Progress Note: A&P Assessment and Plan (1) SARAH (acute kidney injury): Code(s): N17.9 - Acute kidney failure, unspecified Status: Acute Assessment and Plan: suspect due to infection and fluctuating hemodynamics leading to ATN evaluation to date: - urine sodium not low but she was on diuretics - renal ultrasound with obstruction given rising creatinine and fluctuating urine output, initiated on renal replacement therapy/dialysis continues to have good urine output and relatively stable creatinine as well as electrolytes -- suspect renal recovery... continue to HOLD dialysis replete K+ as needed follow trend of repeat labs and urine output (2) Chronic kidney disease, stage 4 (severe): Code(s): N18.4 - Chronic kidney disease, stage 4 (severe) Status: Chronic Assessment and Plan: creatinine is up and down during this hospital stay baseline creatinine runs around the 3ish range most likely due to diabetes, hypertension, and vascular disease follows with Dr. Pena for CKD management (3) Hypertension: Qualifiers: Hypertension type: essential hypertension Qualified Code(s): I10 - Essential (primary) hypertension Code(s): I10 - Essential (primary) hypertension Status: Chronic Assessment and Plan: running on the high side at this time follow trend for now consider titration of metoprolol versus adding another agent (i.e. hydralazine or amlodipine) (4) Anemia: Code(s): D64.9 - Anemia, unspecified Status: Chronic Assessment and Plan: due to SARAH, underlying CKD, and acute illness was on Epogen with dialysis follow trend of H/H (5) Delayed surgical wound healing of [id number]-[id number]-rifx amputation stump: Code(s): T87.89 - Other complications of amputation stump; T81.89XA - Other complications of procedures, not elsewhere classified, initial encounter Status: Acute Assessment and Plan: Orthopedics following wound vac in place local wound care (6) Type 2 diabetes mellitus: Qualifiers: Chronic kidney disease stage: stage 4 (severe) Diabetes mellitus complication detail: with chronic kidney disease Diabetes mellitus complication status: with kidney complications Diabetes mellitus 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 Will continue to follow. Subjective Date/time seen: 11/17/20 12:16 No new issues or problems to report at this time; continues to feel reasonably well; stable urine output in the last several days without the need for diuretic therapy; eating and drinking reasonably well; no other compaints voiced; no distress noted. Exam Narrative: General: WD/WN female in NAD Heart: normal S1 and S2; no rub Lungs: clear to auscultation Abdomen: soft, nontender, nondistended, positive bowel sounds Extremities: no cyanosis or clubbing; no edema; s/p right BKA Skin: wound vac in place on the right stump (no change) Objective Data Vital Signs Vital Signs: Vital Signs Temp Pulse Resp BP Pulse Ox 11/17/20 09:27 88 11/17/20 08:43 80 93 11/17/20 08:41 80 20 11/17/20 06:00 37.1 C 65 18 173/83 H 100 11/17/20 03:23 66 18 11/17/20 03:13 64 20 11/16/20 22:00 36.6 C 68 18 147/74 H 100 11/16/20 21:38 76 23 H 11/16/20 21:37 76 23 H 97 11/16/20 21:27 78 96 11/16/20 21:22 78 18 11/16/20 21:14 74 11/16/20 14:01 76 18 11/16/20 14:00 36.8 C 74 20 163/66 H 100 11/16/20 13:51 80 18 Intake/Output Inta
--- NOTE | 2020-11-17 13:23 | PCNFU ---
Nutrition Follow-Up Complete: Inadequate oral intake related to oral intubation/mechanical ventilation as evidenced by NPO status. Goal: Patient to meet estimated nutritional needs. Patient is meeting current goal. No new goal. Pt current nutrition is Renal Dialysis/DBCC with Karl BID. Last recorded weight is 106.8 kg, down from 134 kg. Bowel Motility:+BM reported Labs Reviewed:Hgb 8.6,Hct 29.9,K 3.1,BUN 54,Cr 3.2 Meds Noted:Atrovent,Lasix,Protonix,Lopressor,Synthroid, Colace Additional Notes: Nutrition follow up. Patient oral intake much improved, 90-100% of meals. No Dialysis at this time. Skin: wound vac right lower leg. Agree with diet orders. Monitoring: Follow up every 5 days.
[2020-11-17] MEDS: DOXAZOSIN MESYLATE 2 MG TABLET PO (14:44)
--- NOTE | 2020-12-15 10:33 | PM.DS ---
DS: Admitting Diagnosis Discharge Date 11/17/20 Admitting Diagnosis 1. Altered mental status possibly secondary to infection the R BKA stump wound;concerns for carbon dioxide narcosis: - patient presented with altered mentation Berarducci from ED - She was noted to further decompensated in the emergency room - vitals and labs reviewed - PC O2 levels elevated to 70 - ammonia levels within normal limits; blood sugar within normal limits - exam notable for right BKA stump wound which appears to be draining and has an eschar erthematous background please see exam above - in the ED noted to be requiring intubation due to worsening mental status - Rest of the workup as below 2. Bradycardia: - patient to be discharged with doxazosin 2 mg, verapamil 40 p.o. extended release, clonidine 0.1 b.i.d., metoprolol 100 b.i.d. - troponin negative - BNP noted to be elevated to 35,000 - EKG reviewed - chest x-ray notable for increased cardiac silhouette which is unchanged from prior x-ray - Echo ordered 3. hypotension secondary to possible septic shock: - noted to be not able to maintain blood pressure - in ED started on Levophed and dopamine. - Lactic acid within normal limits; no WBC noted - this patient was sent home on aspirin 81 daily; no blood tenderness noted for prolonged DVT prophylaxis after surgery - Patient started on IV vancomycin and cefepime in ED 4. Sepsis possibly secondary to right BKA stump wound infection: - blood cultures drawn; lactic acid within normal limits - No WBC noted - however given probable source from right BKA stump wound and hypotension with altered mental status, chances of sepsis remain high - IV antibiotics as above 5. Respiratory acidosis secondary to decreased respiratory drive: - noted to have pCO2 of 78 which after BiPAP in the ED for 1 hour was noted to decrease to 61 - Patient continued to decompensate and was very lethargic, unable to maintain her airways, was intubated in the ED - patient planned to be monitored in the ICU for further management 6. Hyponatremia secondary to decreased p.o. intake: - continue IV fluids as per sepsis protocol 7. CKD stage 4: - creatinine baseline 2.8 to 3.0 - Cr currently at baseline - Urine output to be measured strict I/Os 8. Type 2 DM: - given current status patient will be monitored for Accu-Cheks every 6 hours - Sliding scale Q.6 hours 9. Elevated D-dimer: - noted to be elevated to greater than 2000 - Less likely PE, due to D-dimer being elevated secondary to possible infection 10. Chronic anemia possibly secondary to iron-deficiency: - continue to monitor 11. Acute hypoxic and hypercarbic respiratory failure: - patient requiring intubation - Rest of the detail as above 12. UTI: - urinalysis concerning for infection - Started on antibiotics of vancomycin and cefepime - IV fluids - urine culture sent 13. Protein calorie malnutrition: - albumin 2.4 - Continue to monitor 14 obesity: - BMI noted to be 49.5 kilos - continue to monitor 15. Elevated BNP: - noted to be greater than 35,000 - Cardiology on board; echo ordered 16. C diff colitis history: - was discharged with p.o. vancomycin - continue p.o. vancomycin at prior days 17. GI and DVT prophylaxis: - Will start heparin SC and IV pantoprazole DS: Discharge Diagnosis Discharge Diagnosis (1) SARAH (acute kidney injury): Code(s): N17.9 - Acute kidney failure, unspecified Status: Acute Assessment and Plan: (2) Encounter for insertion of venous access port: Code(s): Z45.2 - Encounter for adjustment and management of vascular access device Status: Acute (3) Hypotension: Code(s): I95.9 - Hypotension, unspecified Status: Acute (4) Acute respiratory failure: Code(s): J96.00 - Acute respiratory failure, unspecified whether with hypoxia or hypercapnia Status: Acute (5) Acute encephalopathy:
== END 2020-11-17 17:10 | DRG 492 ==
LOC: ANHED 12:11 → ANHICU 18:43 → ANH3MED 10-17 10:25 → ANH3MEDSUR 11-08 08:13 → ANH3MED 11-20 16:38 → ANH3MEDSUR 11-20 16:38 → ANHICU 11-20 16:38 → ANHIMU 11-20 16:38
PROVIDERS: Family Medicine; Hospitalist; Internal Medicine; Internal Medicine Nephrology; Nurse Practitioner; Nurse Practitioner Adult Health; Orthopaedic Surgery; Surgery; Admitting Provider Internal Medicine; Emergency Provider Emergency Medicine; PCP Family Medicine; Visit Provider Physician Assistant
PROC: 0QBG0ZZ Excision of Right Tibia, Open Approach (ICD-10-PCS; principal; 2020-10-19 09:00)
PROC: 0JH63XZ Insertion of Tunneled Vascular Access Device into Chest Subcutaneous Tissue and Fascia, Percutaneous Approach (ICD-10-PCS; CPT 36908; principal; 2020-11-10 09:30)
PROC: 0JH63XZ Insertion of Tunneled Vascular Access Device into Chest Subcutaneous Tissue and Fascia, Percutaneous Approach (ICD-10-PCS; 2020-11-10 09:30)
DX: T87.43 Infection of amputation stump, right lower extremity (principal); A41.9 Sepsis, unspecified organism; R65.21 Severe sepsis with septic shock; J96.21 Acute and chronic respiratory failure with hypoxia; J96.22 Acute and chronic respiratory failure with hypercapnia; J69.0 Pneumonitis due to inhalation of food and vomit; E87.2 Acidosis; E87.1 Hypo-osmolality and hyponatremia; N18.4 Chronic kidney disease, stage 4 (severe); Z68.41 Body mass index [BMI] 40.0-44.9, adult; E46 Unspecified protein-calorie malnutrition; A04.72 Enterocolitis due to Clostridium difficile, not specified as recurrent; G93.40 Encephalopathy, unspecified; N17.9 Acute kidney failure, unspecified; N30.00 Acute cystitis without hematuria; L03.115 Cellulitis of right lower limb; B96.20 Unspecified Escherichia coli [E. coli] as the cause of diseases classified elsewhere; B96.5 Pseudomonas (aeruginosa) (mallei) (pseudomallei) as the cause of diseases classified elsewhere; T81.89XA Other complications of procedures, not elsewhere classified, initial encounter; T87.81 Dehiscence of amputation stump; Z89.511 Acquired absence of right leg below knee; Y83.5 Amputation of limb(s) as the cause of abnormal reaction of the patient, or of later complication, without mention of misadventure at the time of the procedure; Z20.822 Contact with and (suspected) exposure to COVID-19; R00.1 Bradycardia, unspecified; E11.22 Type 2 diabetes mellitus with diabetic chronic kidney disease; I12.9 Hypertensive chronic kidney disease with stage 1 through stage 4 chronic kidney disease, or unspecified chronic kidney disease; D63.1 Anemia in chronic kidney disease; E03.9 Hypothyroidism, unspecified; E66.01 Morbid (severe) obesity due to excess calories; E78.5 Hyperlipidemia, unspecified; E78.00 Pure hypercholesterolemia, unspecified; D50.9 Iron deficiency anemia, unspecified; L40.50 Arthropathic psoriasis, unspecified; R79.89 Other specified abnormal findings of blood chemistry; D72.9 Disorder of white blood cells, unspecified; Z79.82 Long term (current) use of aspirin; Z79.899 Other long term (current) drug therapy; Z96.642 Presence of left artificial hip joint; Z96.652 Presence of left artificial knee joint
CPT/HCPCS: 31500; 36415; 36556; 36600; 70450; 71045; 71250; 73562; 74018; 74176; 76775; 77001; 80048; 80053; 80069; 80202; 81001; 82140; 82375; 82436; 82533; 82550; 82565; 82570; 82805; 82948; 83050; 83516; 83605; 83615; 83690; 83735; 83880; 83935; 84100; 84133; 84156; 84300; 84439; 84443; 84480; 84484; 85025; 85027; 85046; 85380; 85610; 85652; 85730; 85999; 86038; 86039; 86140; 86160; 86162; 86704; 86706; 86803; 86850; 86900; 86901; 87040; 87070; 87075; 87077; 87086; 87088; 87186; 87205; 87340; 87426; 92526; 92610; 93005; 93306; 94002; 94003; 94640; 94660; 96361; 96365; 96366; 96367; 96368; 96375; 96376; 97110; 97161; 97166; 97530; 97535; 99291; A9270; C1750; C1751; C9113; C9803; G0257; J0295; J0360; J0461; J0610; J0692; J1100; J1265; J1610; J1644; J1815; J1940; J2250; J2405; J2704; J3010; J3370; J3475; J7030; J7040; J7060; J7070; J7120; P9047; Q5106; U0003; U0005

== ENCOUNTER 2021-03-27 07:32 | Outpatient (RCR) | payer OTHER, MEDICARE, BC, SELFPAY ==
--- NOTE | 2020-11-17 18:49 | PM.DS ---
DS: Admitting Diagnosis Admitting Diagnosis 1. Altered mental status possibly secondary to infection the R BKA stump wound;concerns for carbon dioxide narcosis: - patient presented with altered mentation Berarducci from ED - She was noted to further decompensated in the emergency room - vitals and labs reviewed - PC O2 levels elevated to 70 - ammonia levels within normal limits; blood sugar within normal limits - exam notable for right BKA stump wound which appears to be draining and has an eschar erthematous background please see exam above - in the ED noted to be requiring intubation due to worsening mental status - Rest of the workup as below 2. Bradycardia: - patient to be discharged with doxazosin 2 mg, verapamil 40 p.o. extended release, clonidine 0.1 b.i.d., metoprolol 100 b.i.d. - troponin negative - BNP noted to be elevated to 35,000 - EKG reviewed - chest x-ray notable for increased cardiac silhouette which is unchanged from prior x-ray - Echo ordered 3. hypotension secondary to possible septic shock: - noted to be not able to maintain blood pressure - in ED started on Levophed and dopamine. - Lactic acid within normal limits; no WBC noted - this patient was sent home on aspirin 81 daily; no blood tenderness noted for prolonged DVT prophylaxis after surgery - Patient started on IV vancomycin and cefepime in ED 4. Sepsis possibly secondary to right BKA stump wound infection: - blood cultures drawn; lactic acid within normal limits - No WBC noted - however given probable source from right BKA stump wound and hypotension with altered mental status, chances of sepsis remain high - IV antibiotics as above 5. Respiratory acidosis secondary to decreased respiratory drive: - noted to have pCO2 of 78 which after BiPAP in the ED for 1 hour was noted to decrease to 61 - Patient continued to decompensate and was very lethargic, unable to maintain her airways, was intubated in the ED - patient planned to be monitored in the ICU for further management 6. Hyponatremia secondary to decreased p.o. intake: - continue IV fluids as per sepsis protocol 7. CKD stage 4: - creatinine baseline 2.8 to 3.0 - Cr currently at baseline - Urine output to be measured strict I/Os 8. Type 2 DM: - given current status patient will be monitored for Accu-Cheks every 6 hours - Sliding scale Q.6 hours 9. Elevated D-dimer: - noted to be elevated to greater than 2000 - Less likely PE, due to D-dimer being elevated secondary to possible infection 10. Chronic anemia possibly secondary to iron-deficiency: - continue to monitor 11. Acute hypoxic and hypercarbic respiratory failure: - patient requiring intubation - Rest of the detail as above 12. UTI: - urinalysis concerning for infection - Started on antibiotics of vancomycin and cefepime - IV fluids - urine culture sent 13. Protein calorie malnutrition: - albumin 2.4 - Continue to monitor 14 obesity: - BMI noted to be 49.5 kilos - continue to monitor 15. Elevated BNP: - noted to be greater than 35,000 - Cardiology on board; echo ordered 16. C diff colitis history: - was discharged with p.o. vancomycin - continue p.o. vancomycin at prior days 17. GI and DVT prophylaxis: - Will start heparin SC and IV pantoprazole DS: Discharge Diagnosis Discharge Diagnosis (1) SARAH (acute kidney injury): Code(s): N17.9 - Acute kidney failure, unspecified Status: Acute (2) Encounter for insertion of venous access port: Code(s): Z45.2 - Encounter for adjustment and management of vascular access device Status: Acute (3) Hypotension: Code(s): I95.9 - Hypotension, unspecified Status: Acute (4) Acute respiratory failure: Code(s): J96.00 - Acute respiratory failure, unspecified whether with hypoxia or hypercapnia Status: Acute (5) Acute encephalopathy: Code(s): G93.40 - Encephalopathy, unspecified St
--- NOTE | 2020-11-28 09:18 | PCWOUND ---
WOCN NOTE patient did not show up for her scheduled appointment for 11/28/20. Call was made to [facility] where patient is residing at this time. Unable to speak with nurse for patient, left message for nurse to contact wound center.
[2021-01-16 09:00] VITALS: BMI 44.0
--- NOTE | 2021-01-16 09:24 | PM.IMHP ---
H&P: HPI History of Present Illness Date/Time: 01/16/21 09:24 Chief Complaint: Right below-knee amputation Narrative: 65-year-old woman with diabetes and psoriatic arthritis returns to [facility] for re-evaluation. She is approximately 5 months status post below-knee amputation. Three months status post debridement for wound necrosis and infection. Postoperative course complicated by medical comorbidities including respiratory failure, cardiac failure, c difficile colitis and renal failure. One month ago she was admitted to [facility] with respiratory and cardiac failure. She [facility] has been at for the past 3 weeks. They have been doing a wound VAC to the right leg with twice a week dressing changes. In addition, patient sustained passing of her 1 month ago. Review of Systems Constitutional: Constitutional: Denies fever(s) Eyes: Eyes: Denies blurry vision ENT: Reports Normal hearing present Cardiovascular: Cardiovascular: Denies chest pain and Denies dyspnea Respiratory: Respiratory: Denies dyspnea and Denies wheezing Gastrointestinal: Gastrointestinal: Denies abdominal pain Genitourinary: Genitourinary: Denies urinary urgency Musculoskeletal: Musculoskeletal: Reports as per HPI and Denies numbness Integumentary/Breasts: Skin/Breast: Reports changing lesions, Reports dry skin, Reports sores and Reports other ( Skin changes with psoriatic arthritis) Neurologic: Reports Normal hearing present, Denies behavioral changes, Denies confusion, Denies numbness and Denies convulsions Psychiatric: Psychiatric: Denies behavioral changes, Denies confusion and Denies hallucinations Endocrine: Endocrine: Denies heat intolerance Hematologic/Lymphatic: Hematologic/Lymphatic: Denies easy bleeding Allergic/Immunologic: Allergic/Immunologic: Denies wheezing [facility] Past Medical History Medical History Chronic kidney disease (CKD) stage G4/A1, severely decreased glomerular filtration rate (GFR) between 15-29 mL/min/1.73 square meter and albuminuria creatinine ratio less than 30 mg/g Chronic kidney disease, stage 4 (severe) Chronic pain of right ankle Delayed surgical wound healing of [id number]-[id number] amputation stump Hematoma of amputation stump of right lower extremity Hypercholesterolemia Hypertension Hypothyroidism Metabolic acidosis Morbid obesity with BMI of 40.0-44.9, adult Osteoarthritis Primary localized osteoarthritis of right knee 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 Left foot reconstruction. Right mandibular surgery. Left total hip arthroplasty. Right transtibial amputation. Left knee arthroplasty. Presence of left artificial hip joint Family History Family History Other Diabetes mellitus Family history of alcoholism Hypertension Social History Social History Social History: The patient lives in [place] with her . She has no children. 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 Lifelong nonsmoker. Drinks perhaps 2 alcoholic beverages a week. No illicit substance use. She designates her , David Lopes, as her surrogate decision maker. Code status: Full code. Smoking status: Never smoker Alcohol intake: unknown Drinks per week: 3 Alcohol use details: BEER Substance use: unknown Substance use type: does not use Gender identity (if verbalized by the patient): Female Sexual Orientation (if Verbalized by the Patient): Straight or Heterosexual Spiritual care concerns: N
--- NOTE | 2021-01-29 15:16 | PCWOUND ---
ANGELITO NOTE Appointment cancelled for tomorrow due to the transportations vehicles at [facility] are both broken down. Call to Dr. Curtis's office to inform.
--- NOTE | 2021-02-13 09:08 | PM.IMHP ---
H&P: HPI History of Present Illness Date/Time: 02/13/21 09:08 Chief Complaint: Right below-knee amputation Narrative: patient returns for follow-up to [facility] for right below-knee amputation wound. Currently pen[facility]entiary. She has started regularly scheduled dialysis. PT/OT for transfers with nonweightbearing right leg. wound care to right leg with dressing changes daily, silver gel and transfer. Review of Systems Constitutional: Constitutional: Denies fever(s) Eyes: Eyes: Denies blurry vision ENT: Reports Normal hearing present Cardiovascular: Cardiovascular: Denies chest pain and Denies dyspnea Respiratory: Respiratory: Denies dyspnea and Denies wheezing Gastrointestinal: Gastrointestinal: Denies abdominal pain Genitourinary: Genitourinary: Denies urinary urgency Musculoskeletal: Musculoskeletal: Reports as per HPI and Denies numbness Integumentary/Breasts: Skin/Breast: Reports changing lesions, Reports dry skin, Reports sores and Reports other ( Skin changes with psoriatic arthritis) Neurologic: Reports Normal hearing present, Denies behavioral changes, Denies confusion, Denies numbness and Denies convulsions Psychiatric: Psychiatric: Denies behavioral changes, Denies confusion and Denies hallucinations Endocrine: Endocrine: Denies heat intolerance Hematologic/Lymphatic: Hematologic/Lymphatic: Denies easy bleeding Allergic/Immunologic: Allergic/Immunologic: Denies wheezing PMFSH Past Medical History Medical History Chronic kidney disease (CKD) stage G4/A1, severely decreased glomerular filtration rate (GFR) between 15-29 mL/min/1.73 square meter and albuminuria creatinine ratio less than 30 mg/g Chronic kidney disease, stage 4 (severe) Chronic pain of right ankle Delayed surgical wound healing of zfybu-zqg-qirq amputation stump Hematoma of amputation stump of right lower extremity Hypercholesterolemia Hypertension Hypothyroidism Metabolic acidosis Morbid obesity with BMI of 40.0-44.9, adult Osteoarthritis Primary localized osteoarthritis of right knee 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 Left foot reconstruction. Right mandibular surgery. Left total hip arthroplasty. Right transtibial amputation. Left knee arthroplasty. Presence of left artificial hip joint Family History Family History Other Diabetes mellitus Family history of alcoholism Hypertension Social History Social History Social History: The patient lives in [place] with her . She has no children. 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 Lifelong nonsmoker. Drinks perhaps 2 alcoholic beverages a week. No illicit substance use. She designates her , David Lopes, as her surrogate decision maker. Code status: Full code. Smoking status: Never smoker Alcohol intake: unknown Drinks per week: 3 Alcohol use details: BEER Substance use: unknown Substance use type: does not use Gender identity (if verbalized by the patient): Female Sexual Orientation (if Verbalized by the Patient): Straight or Heterosexual Spiritual care concerns: No Meds Home Medications and Allergies Home Medications Medication Instructions Recorded Confirmed Type atorvastatin [Lipitor] 40 mg PO HS 02/01/19 10/11/20 History hydralazine 100 mg PO TID 02/01/19 10/11/20 History doxazosin 2 mg tablet 2 mg PO HS 08/28/20 10/11/20 History levothyroxine 25 mcg capsule 25 mcg PO QAM 08/28/20 10/11/20 History ergocalciferol (vitamin D2) 1,250 mcg PO WEEKLY 09/19/20 10/11/20 History metoprolol tartrate 100
--- NOTE | 2021-03-20 07:54 | PCWOUND ---
WOCN NOTE Patient called to inform that she had contracted COVID-19 14 days ago and that she had resumed her normal activities as of yesterday 03/19/21, when she returned to dialysis. Patient unsure if she could come to her appointment. Spoke with Dr Curtis who stated that is she was off quarantine that she could keep appointment. When I returned patients call to state she could come to appointment, apparently the transport bus could not bring her today. Appointment canceled today and rescheduled for 03/27/21. Will notify Dr Curtis.
--- NOTE | 2021-03-27 10:15 | PM.IMHP ---
H&P: HPI History of Present Illness Date/Time: 03/27/21 10:15 Chief Complaint: right tkypq-moq-ebfs amputation Narrative: 65-year-old female returns to the [facility] today for re-evaluation of right stump wound. He is now 6 months status post right agegu-nge-yfeb amputation complicated by postoperative wound dehiscence and multiple hospitalizations. Patient is currently living at a detention facility until she is able to be more independent. Her ultimate goal is to return home. She is currently awaiting prosthetic fitting due to her continued open wound. She is currently undergoing the stump shrinking process by [facility] Review of Systems Constitutional: Constitutional: Denies fever(s) Eyes: Eyes: Denies blurry vision ENT: Reports Normal hearing present Cardiovascular: Cardiovascular: Denies chest pain and Denies dyspnea Respiratory: Respiratory: Denies dyspnea and Denies wheezing Gastrointestinal: Gastrointestinal: Denies abdominal pain Genitourinary: Genitourinary: Denies urinary urgency Musculoskeletal: Musculoskeletal: Reports as per HPI and Denies numbness Integumentary/Breasts: Skin/Breast: Reports changing lesions, Reports dry skin, Reports sores and Reports other ( Skin changes with psoriatic arthritis) Neurologic: Reports Normal hearing present, Denies behavioral changes, Denies confusion, Denies numbness and Denies convulsions Psychiatric: Psychiatric: Denies behavioral changes, Denies confusion and Denies hallucinations Endocrine: Endocrine: Denies heat intolerance Hematologic/Lymphatic: Hematologic/Lymphatic: Denies easy bleeding Allergic/Immunologic: Allergic/Immunologic: Denies wheezing PMFSH Past Medical History Medical History Chronic kidney disease (CKD) stage G4/A1, severely decreased glomerular filtration rate (GFR) between 15-29 mL/min/1.73 square meter and albuminuria creatinine ratio less than 30 mg/g Chronic kidney disease, stage 4 (severe) Chronic pain of right ankle Delayed surgical wound healing of mgsrk-gbp-fbcj amputation stump Hematoma of amputation stump of right lower extremity Hypercholesterolemia Hypertension Hypothyroidism Metabolic acidosis Morbid obesity with BMI of 40.0-44.9, adult Osteoarthritis Primary localized osteoarthritis of right knee 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 Left foot reconstruction. Right mandibular surgery. Left total hip arthroplasty. Right transtibial amputation. Left knee arthroplasty. Presence of left artificial hip joint Family History Family History Other Diabetes mellitus Family history of alcoholism Hypertension Social History Social History Social History: The patient lives in [place] with her . She has no children. 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 Lifelong nonsmoker. Drinks perhaps 2 alcoholic beverages a week. No illicit substance use. She designates her , David Lopes, as her surrogate decision maker. Code status: Full code. Smoking status: Never smoker Alcohol intake: unknown Drinks per week: 3 Alcohol use details: BEER Substance use: unknown Substance use type: does not use Gender identity (if verbalized by the patient): Female Sexual Orientation (if Verbalized by the Patient): Straight or Heterosexual Spiritual care concerns: No Meds Home Medications and Allergies Home Medications Medication Instructions Recorded Confirmed Type atorvastatin [Lipitor] 40 mg PO HS 02/01/19 10/11/20 History hydralazine 100 mg PO TID 02/01/19 10/11/20 History doxazosin 2 mg t
== END 2021-04-16 23:59 | disposition home or self-care (01) ==
LOC: ANHWOC 07:32
PROVIDERS: PCP Family Medicine; Visit Provider Orthopaedic Surgery
DX: Z48.01 Encounter for change or removal of surgical wound dressing (principal); T87.81 Dehiscence of amputation stump
CPT/HCPCS: 99212; G0463

== ENCOUNTER 2021-04-24 08:16 | Outpatient (RCR) | payer MEDICARE, BC, SELFPAY ==
[2021-04-17 00:04] VITALS: BMI 44.0
--- NOTE | 2021-04-24 10:01 | PM.IMHP ---
H&P: HPI History of Present Illness Date/Time: 04/24/21 10:01 Chief Complaint: Right BKA Narrative: 65-year-old female returns to the [facility] today for re-evaluation of right stump wound. He is now 6 months status post right [id number]-ryg-uklm amputation complicated by postoperative wound dehiscence and multiple hospitalizations. Patient is currently living at a detention facility until she is able to be more independent. Her ultimate goal is to return home. She is currently awaiting prosthetic fitting due to her continued open wound. She is currently undergoing the stump shrinking process by [facility]. Review of Systems Constitutional: Constitutional: Denies fever(s) Eyes: Eyes: Denies blurry vision ENT: Reports Normal hearing present Cardiovascular: Cardiovascular: Denies chest pain and Denies dyspnea Respiratory: Respiratory: Denies dyspnea and Denies wheezing Gastrointestinal: Gastrointestinal: Denies abdominal pain Genitourinary: Genitourinary: Denies urinary urgency Musculoskeletal: Musculoskeletal: Reports as per HPI and Denies numbness Integumentary/Breasts: Skin/Breast: Reports changing lesions, Reports dry skin, Reports sores and Reports other ( Skin changes with psoriatic arthritis) Neurologic: Reports Normal hearing present, Denies behavioral changes, Denies confusion, Denies numbness and Denies convulsions Psychiatric: Psychiatric: Denies behavioral changes, Denies confusion and Denies hallucinations Endocrine: Endocrine: Denies heat intolerance Hematologic/Lymphatic: Hematologic/Lymphatic: Denies easy bleeding Allergic/Immunologic: Allergic/Immunologic: Denies wheezing PMF Past Medical History Medical History Chronic kidney disease (CKD) stage G4/A1, severely decreased glomerular filtration rate (GFR) between 15-29 mL/min/1.73 square meter and albuminuria creatinine ratio less than 30 mg/g Chronic kidney disease, stage 4 (severe) Chronic pain of right ankle Delayed surgical wound healing of [id number]-pxgz amputation stump Hematoma of amputation stump of right lower extremity Hypercholesterolemia Hypertension Hypothyroidism Metabolic acidosis Morbid obesity with BMI of 40.0-44.9, adult Osteoarthritis Primary localized osteoarthritis of right knee 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 Left foot reconstruction. Right mandibular surgery. Left total hip arthroplasty. Right transtibial amputation. Left knee arthroplasty. Presence of left artificial hip joint Family History Family History Other Diabetes mellitus Family history of alcoholism Hypertension Social History Social History Social History: She has no children. 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 Lifelong nonsmoker. Drinks perhaps 2 alcoholic beverages a week. No illicit substance use. Code status: Full code. Smoking status: Never smoker Alcohol intake: unknown Drinks per week: 3 Alcohol use details: BEER Substance use: unknown Substance use type: does not use Additional living arrangements comments: Pt is a Gender identity (if verbalized by the patient): Female Sexual Orientation (if Verbalized by the Patient): Straight or Heterosexual Spiritual care concerns: No Meds Home Medications and Allergies Home Medications Medication Instructions Recorded Confirmed Type atorvastatin [Lipitor] 40 mg PO HS 02/01/19 10/11/20 History hydralazine 100 mg PO TID 02/01/19 10/11/20 History doxazosin 2 mg tablet 2 mg PO HS 08/28/20 10/11/20 History levothyroxine 25 mcg capsule 25 mcg PO QAM
--- NOTE | 2021-06-05 14:43 | PM.IMHP ---
H&P: HPI History of Present Illness Date/Time: 06/05/21 14:43 Chief Complaint: Right below-knee amputation Narrative: 65-year-old female returns for re-evaluation of right stump wound. She is now 8 months status post right [id number] amputation complicated by postoperative wound dehiscence and multiple hospitalizations. Patient is currently living at a residential facility until she is able to be more independent. Her ultimate goal is to return home. She is currently awaiting prosthetic fitting due to her continued open wound. She is currently undergoing the stump shrinking process by [facility]. Review of Systems Constitutional: Constitutional: Denies fever(s) Eyes: Eyes: Denies blurry vision ENT: Reports Normal hearing present Cardiovascular: Cardiovascular: Denies chest pain and Denies dyspnea Respiratory: Respiratory: Denies dyspnea and Denies wheezing Gastrointestinal: Gastrointestinal: Denies abdominal pain Genitourinary: Genitourinary: Denies urinary urgency Musculoskeletal: Musculoskeletal: Reports as per HPI and Denies numbness Integumentary/Breasts: Skin/Breast: Reports changing lesions, Reports dry skin, Reports sores and Reports other ( Skin changes with psoriatic arthritis) Neurologic: Reports Normal hearing present, Denies behavioral changes, Denies confusion, Denies numbness and Denies convulsions Psychiatric: Psychiatric: Denies behavioral changes, Denies confusion and Denies hallucinations Endocrine: Endocrine: Denies heat intolerance Hematologic/Lymphatic: Hematologic/Lymphatic: Denies easy bleeding Allergic/Immunologic: Allergic/Immunologic: Denies wheezing PMF Past Medical History Medical History Chronic kidney disease (CKD) stage G4/A1, severely decreased glomerular filtration rate (GFR) between 15-29 mL/min/1.73 square meter and albuminuria creatinine ratio less than 30 mg/g Chronic kidney disease, stage 4 (severe) Chronic pain of right ankle Delayed surgical wound healing of [id number] amputation stump Hematoma of amputation stump of right lower extremity Hypercholesterolemia Hypertension Hypothyroidism Metabolic acidosis Morbid obesity with BMI of 40.0-44.9, adult Osteoarthritis Primary localized osteoarthritis of right knee 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 Left foot reconstruction. Right mandibular surgery. Left total hip arthroplasty. Right transtibial amputation. Left knee arthroplasty. Presence of left artificial hip joint Family History Family History Other Diabetes mellitus Family history of alcoholism Hypertension Social History Social History Social History: She has no children. 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 Lifelong nonsmoker. Drinks perhaps 2 alcoholic beverages a week. No illicit substance use. Code status: Full code. Smoking status: Never smoker Alcohol intake: unknown Drinks per week: 3 Alcohol use details: BEER Substance use: unknown Substance use type: does not use Additional living arrangements comments: Pt is a Gender identity (if verbalized by the patient): Female Sexual Orientation (if Verbalized by the Patient): Straight or Heterosexual Spiritual care concerns: No Meds Home Medications and Allergies Home Medications Medication Instructions Recorded Confirmed Type atorvastatin [Lipitor] 40 mg PO HS 02/01/19 10/11/20 History hydralazine 100 mg PO TID 02/01/19 10/11/20 History doxazosin 2 mg tablet 2 mg PO HS 08/28/20 10/11/20 History levothyroxine 25 mcg capsule 25 mcg PO QAM 08/28/20
== END 2021-07-09 08:09 | disposition home or self-care (01) ==
LOC: ANHWOC 08:16
PROVIDERS: PCP Family Medicine; Visit Provider Orthopaedic Surgery
DX: Z48.01 Encounter for change or removal of surgical wound dressing (principal); T87.81 Dehiscence of amputation stump; Z89.511 Acquired absence of right leg below knee
CPT/HCPCS: 99212; G0463